=== PATIENT | male | born 1970 | race African-American/Black ===

== ENCOUNTER 2016-05-01 15:02 | Inpatient (IN) | payer OTHER ==
--- NOTE | 2016-05-01 15:28 | PDOC ---
History of Present Illness - General Chief Complaint: Respiratory Distress Stated Complaint: SOB Time Seen by Provider: 05/01/16 15:23 History Source: Patient - History of Present Illness Timing/Duration: reports: other Severity: reports: severe Associated Symptoms: reports: shortness of breath. denies: chest pain/soreness , fever/chills Past History - Past Medical History Allergies/Adverse Reactions: Allergies Allergy/AdvReac Type Severity Reaction Status Date / Time aspirin Allergy Verified 05/01/16 15:12 milk AdvReac Verified 05/01/16 15:12 mushroom Allergy Unknown Uncoded 05/01/16 15:12 TURKEY Allergy Uncoded 05/01/16 15:12 Home Medications: Ambulatory Orders Albuterol Sulfate Inhaler - [Ventolin HFA Inhaler -] 2 inh PO Q4H 05/10/15 Arformoterol Tartrate [Brovana -] 1 neb NEB BID 05/10/15 Ergocalciferol [Drisdol -] 50,000 unit PO WEEKLY 05/10/15 Furosemide [Lasix -] 60 mg PO BID 05/10/15 Methimazole 10 mg PO DAILY 05/10/15 Pantoprazole Sodium [Protonix -] 20 mg PO DAILY 05/10/15 Rivaroxaban [Xarelto -] 20 mg PO DAILY 05/10/15 Vitamin B Complex 1 each PO DAILY 05/10/15 Timolol 0.5% [Timoptic 0.5%] 1 drop OU DAILY drops 05/15/15 Atorvastatin Ca [Lipitor] 10 mg PO DAILY 09/06/15 Multivitamin [Poly-Vitamin] 1 each PO DAILY 09/06/15 Potassium Chloride [K-Dur -] 20 meq PO Q2D@1000 tablet.er 09/12/15 Prednisone [Deltasone -] 10 mg PO DAILY #30 tablet 11/08/15 Tramadol HCl [Ultram -] 50 mg PO BID #60 tablet MDD 100 mg 11/08/15 Anemia: Yes Asthma: Yes Cancer: No Cardiac Disorders: Yes (CHF) CVA: No COPD: Yes (O2 dependent 3-4LPM N/C) CHF: Yes Dementia: No Diabetes: No GI Disorders: Yes (UGI bleed) Disorders: No HTN: Yes Hypercholesterolemia: No Liver Disease: No Suicide Attempt (Hx): No Seizures: Yes Thyroid Disease: Yes - Surgical History Abdominal Surgery: Yes (corterize abdominal bleed) Appendectomy: No Cardiac Surgery: No Cholecystectomy: No Lung Surgery: No Neurologic Surgery: No Orthopedic Surgery: No - Immunization History Immunization Up to Date: Yes - Psycho/Social/Smoking Cessation Hx Anxiety: No Suicidal Ideation: No Smoking Status: No Smoking History: Former smoker Have you smoked in the past 12 months: Yes Number of Cigarettes Smoked Daily: 3 If you are a former smoker, when did you quit?: 2016 Information on smoking cessation initiated: No 'Breaking Loose' booklet given: 05/10/15 Hx Alcohol Use: No Drug/Substance Use Hx: No Substance Use Type: None Hx Substance Use Treatment: No Review of Systems - Review of Systems Constitutional: No: Chills, Fever Respiratory: Yes: Shortness of Breath. No: Cough Cardiac (ROS): No: Chest Pain, Lightheadedness, Palpitations, Syncope *Physical Exam - Vital Signs Last Vital Signs Temp Pulse Resp BP Pulse Ox 99 F 116 H 26 H 120/104 92 L 05/01/16 15:09 05/01/16 15:09 05/01/16 15:09 05/01/16 15:09 05/01/16 15:09 - Physical Exam General Appearance: Yes: Appropriately Dressed, Severe Distress Respiratory/Chest: positive: Lungs Clear, Normal Breath Sounds, Respiratory Distress Cardiovascular: positive: S1, S2, Tachycardia Gastrointestinal/Abdominal: positive: Soft. negative: Tender Extremity: positive: Pedal Edema, Swelling Integumentary: positive: Dry, Warm Neurologic: positive: Fully Oriented, Alert, Normal Mood/Affect ED Treatment Course - LABORATORY CBC & Chemistry Diagram: 05/01/16 15:50 05/01/16 15:50 - RADIOLOGY Radiology Studies Ordered: Category Date Time Status CHEST X-RAY PORTABLE* [RAD] Stat Radiology 05/01/16 15:26 Ordered Medical Decision Making - Medical Decision Making 05/01/16 15:28 45-year-old male, morbid obesity, emphysema, oxygen dependent at home, diastolic CHF, status post recent admission intubation for acute on chronic hypoxic and hypercapnic respiratory failure, presenting with worsening shortness of breath 4 days despite oxygen use. Reports no chest pain, worsening edema, cough, fever or chills at this time. See exam SOB Tachypneic, tachycardic and hypoxic to 92 on NC and unable to speak in full sentences Chest/lungs clear otherwise No sig edema Resp contacted for BIPAP trial -ekg -cxr -lasb including ABG -m/l ICU admit 05/01/16 17:37 Patient satting 100 on BiPAP in no apparent distress. Sinus tach on EKG with negative troponin. BMP greater than 700. Pt accepted to unit by Dr Arellano. A/w callback from Dr Robles (covering for Din), to admit 05/01/16 17:38 Care 05/01/16 18:06 Patient continues to be stable on BiPAP. At this point have not heard back from Dr. Robles after paging for over 2 hours. Case discussed with hospitalist and patient admitted to ICU 05/01/16 18:21 Dr. Robles called back and informed that patient has been listed to hospitalist service as we were unable to hear from him. As per M.D, pt should stay on hospitalist service. *DC/Admit/Observation/Transfer Diagnosis at time of Disposition: Hypercapnic respiratory failure Qualifiers: Chronicity: acute on chronic Qualified Code(s): J96.22 - Acute and chronic respiratory failure with hypercapnia - Discharge Dispostion Condition at time of disposition: Guarded Admit: Yes - Referrals Referrals: Lani Guzman MD [Primary Care Provider] -
[2016-05-01 16:34] LABS: BASOPHIL 0.4 % (0-2.0); EOSINOPHIL 0.1 % (0-4.5); MCH 28.3 pg (25.7-33.7); MCHC 31.3 g/dl (32.0-35.9); MEAN CELL VOLUME 90.5 fl (80-96); MEAN PLT VOLUME 7.7 fl (7.5-11.1); NEUTROPHILS 87.4 % (42.8-82.8); PLATELET COUNT 237 K/MM3 (134-434); RDW 15.8 % (11.9-15.9); WHITE BLOOD COUNT 12.1 K/mm3 (4.0-10.0)
[2016-05-01 16:35] LABS: ARTERIAL BLD GAS O2 SATURATION 92.4 % (90-98.9); ARTERIAL BLOOD GAS BASE EXCESS 9.3 meq/l (-2-2); ARTERIAL BLOOD GAS HCO3 37.5 meq/L (22-26); ARTERIAL BLOOD GAS pH 7.35 (7.35-7.45)
[2016-05-01 16:36] LABS: ALLENS TEST POSITIVE; ART PUNCT SITE RIGHT RADIAL; LPM/O2% 40%; METHEMOGLOBIN 1.4 % (0.4-1.5); PT. ON O2? YES; TYPE OF O2 BIPAP
[2016-05-01 16:37] LABS: MECH. VENT. BIPAP EPAP 5; VENT RATE 12; VT/PRESS IPAP12
[2016-05-01 16:53] LABS: INR 2.68 (0.82-1.09); PROTHROMBIN TIME (PATIENT) 30.1 SEC (9.98-11.88)
[2016-05-01 17:00] LABS: ALBUMIN 3.3 g/dl (3.4-5.0); ANION GAP 5 (8-16); CALCIUM 8.6 mg/dL (8.5-10.1); CO2 38 mmol/L (21-32); CREATININE 0.7 mg/dL (0.7-1.3); GLUCOSE,RANDOM 102 mg/dL (74-106); SGPT/ALT 13 U/L (12-78)
[2016-05-01 17:04] LABS: ALK PHOS 108 U/L (45-117); BILIRUBIN,TOTAL 0.7 mg/dL (0.2-1.0); TOT PROT 6.7 g/dl (6.4-8.2); TROPONIN I < 0.02 ng/ml (0.00-0.05)
[2016-05-01 17:05] LABS: SGOT/AST 16 U/L (15-37)
[2016-05-01 19:11] LABS: URINE APPEARANCE CLEAR; URINE BILIRUBIN NEGATIVE (NEGATIVE); URINE BLOOD NEGATIVE (NEGATIVE); URINE COLOR DKYELLOW; URINE GLUCOSE (UA) NEGATIVE (NEGATIVE); URINE KETONE NEGATIVE (NEGATIVE); URINE NITRITE NEGATIVE (NEGATIVE); URINE UROBILINOGEN 4.0 E.U/dl E.U./dl (0.2-1.0)
[2016-05-01 19:26] LABS: URINE LEUK ESTERASE TRACE (NEGATIVE); URINE PROTEIN 2+ (NEGATIVE)
--- NOTE | 2016-05-01 20:04 | HP ---
CHIEF COMPLAINT: SOB PCP: Thomas HISTORY OF PRESENT ILLNESS: This is a 45 year old male with a past medical history of morbid obesity, BONY, COPD-emphysema, diastolic CHF, anemia, UGI bleed, HTN, hyperthyroid, gluacoma, DVT, kidney stones and hiatal hernia presents with increasing SOB x 4 days. Denies fever, chills, increased cough. Reports that he just hasn't been able to breathe the same since his intubation in January. Denies chest pain, nausea, vomiting. Pt also states his CPAP is not working properly. ER course was notable for: (1) WBC 12.1 (2) BNP 714 (3) ABG pH 7.35, PCO2 70 Recent Travel: pt denies PAST MEDICAL HISTORY: morbid obesity BONY COPD-emphysema, oxygen dependent, intubated 01/2016 diastolic CHF anemia UGI bleed HTN hyperthyroid gluacoma kidney stones hiatal hernia DVT PAST SURGICAL HISTORY: tonsillectomy as a child Social History: Smoking: quit 1 year ago, previous 1/2 ppd x 25 years Alcohol: occ Drugs: marijuana, last used 1 y ago Family History: mother with DM, HTN, PPM father no known medical problems sibling with asthma Allergies aspirin Allergy (Verified 05/01/16 15:12) milk Adverse Reaction (Verified 05/01/16 15:12) mushroom Allergy (Unknown, Uncoded 05/01/16 15:12) TURKEY Allergy (Uncoded 05/01/16 15:12) HOME MEDICATIONS: 3 Medication Instructions Recorded Albuterol Sulfate Inhaler - 2 inh PO Q4H 05/10/15 [Ventolin HFA Inhaler -] Arformoterol Tartrate [Brovana -] 1 neb NEB BID 05/10/15 Ergocalciferol [Drisdol -] 50,000 unit PO WEEKLY 05/10/15 Furosemide [Lasix -] 60 mg PO BID 05/10/15 Methimazole 10 mg PO DAILY 05/10/15 Pantoprazole Sodium [Protonix -] 20 mg PO DAILY 05/10/15 Rivaroxaban [Xarelto -] 20 mg PO DAILY 05/10/15 Vitamin B Complex 1 each PO DAILY 05/10/15 Timolol 0.5% [Timoptic 0.5%] 1 drop OU DAILY drops 05/15/15 Atorvastatin Ca [Lipitor] 10 mg PO DAILY 09/06/15 Multivitamin [Poly-Vitamin] 1 each PO DAILY 09/06/15 Potassium Chloride [K-Dur -] 20 meq PO Q2D@1000 tablet.er 09/12/15 Prednisone [Deltasone -] 10 mg PO DAILY #30 tablet 11/08/15 Tramadol HCl [Ultram -] 50 mg PO BID #60 tablet MDD 100 mg 11/08/15 REVIEW OF SYSTEMS CONSTITUTIONAL: Absent: fever, chills, diaphoresis, generalized weakness, malaise, loss of appetite, weight change HEENT: Absent: rhinorrhea, nasal congestion, throat pain, throat swelling, difficulty swallowing, mouth swelling, ear pain, eye pain, visual changes CARDIOVASCULAR: Present: peripheral edema-pt states it is slightly worse than it has been recently Absent: chest pain, syncope, palpitations, irregular heart rate, lightheadedness RESPIRATORY: Present: shortness of breath Absent: cough, dyspnea with exertion, orthopnea, wheezing, stridor, hemoptysis GASTROINTESTINAL: Absent: abdominal pain, abdominal distension, nausea, vomiting, diarrhea, constipation, melena, hematochezia GENITOURINARY: Absent: dysuria, frequency, urgency, hesitancy, hematuria, flank pain, genital pain MUSCULOSKELETAL: Absent: myalgia, arthralgia, joint swelling, back pain, neck pain SKIN: Absent: rash, itching, pallor HEMATOLOGIC/IMMUNOLOGIC: Absent: easy bleeding, easy bruising, lymphadenopathy, frequent infections ENDOCRINE: Absent: unexplained weight gain, unexplained weight loss, heat intolerance, cold intolerance NEUROLOGIC: Absent: headache, focal weakness or paresthesias, dizziness, unsteady gait, seizure, mental status changes, bladder or bowel incontinence PSYCHIATRIC: Absent: anxiety, depression, suicidal or homicidal ideation, hallucinations. PHYSICAL EXAMINATION Vital Signs - 24 hr 3 05/01/16 05/01/16 05/01/16 15:09 16:06 16:31 Temperature 99 F 98.3 F Pulse Rate 116 H Pulse Rate [ 103 H Left Radial] Respiratory 26 H 20 Rate Blood Pressure 120/104 Blood Pressure 150/132 [Left Arm] O2 Sat by Pulse 92 L 94 L 96 Oximetry (%) 3 05/01/16 05/01/16 05/01/16 18:42 20:05 20:41 Temperature 98.2 F Pulse Rate 89 Pulse Rate [ 97 H Left Radial] Respiratory 16 15 Rate Blood Pressure 157/96 Blood Pressure 128/63 [Left Arm] O2 Sat by Pulse 96 93 L 95 Oximetry (%) GENERAL: Awake, alert, and fully oriented, in no acute distress. HEAD: Normal with no signs of trauma. EYES: Pupils equal, round and reactive to light, extraocular movements intact, sclera anicteric, conjunctiva clear. No lid lag. EARS, NOSE, THROAT: Ears normal, nares patent, oropharynx clear without exudates. Moist mucous membranes. NECK: Normal range of motion, supple without lymphadenopathy, JVD, or masses. LUNGS: Breath sounds equal, clear to auscultation bilaterally. No wheezes, and no crackles. No accessory muscle use. HEART: Regular rate and rhythm, normal S1 and S2 without murmur, rub or gallop. ABDOMEN: Soft, nontender, not distended, normoactive bowel sounds, no guarding, no rebound, no masses. No hepatomegaly or splenomegaly. MUSCULOSKELETAL: Normal range of motion at all joints. No bony deformities or tenderness. No CVA tenderness. UPPER EXTREMITIES: 2+ pulses, warm, well-perfused. No cyanosis. No clubbing. Cap refill <2 seconds. No peripheral edema. LOWER EXTREMITIES: 2+ pulses, warm, well-perfused. No calf tenderness. 1+ peripheral edema BLLE with chronic vascular changes, lichenification to posterior aspect, darkened skin, 2/3 up lower extremities NEUROLOGICAL: Cranial nerves II-XII intact. Normal speech. Normal gait. PSYCHIATRIC: Cooperative. Good eye contact. Appropriate mood and affect. SKIN: Warm, dry, normal turgor, no rashes or lesions noted. Laboratory Results - last 24 hr 3 05/01/16 05/01/16 05/01/16 15:30 15:30 15:50 WBC 12.1 H RBC 4.84 Hgb 13.7 Hct 43.8 MCV 90.5 MCHC 31.3 L RDW 15.8 D Plt Count 237 MPV 7.7 Neutrophils % 87.4 H Lymphocytes % 5.9 L D Monocytes % 6.2 Eosinophils % 0.1 D Basophils % 0.4 INR Puncture Site ABG pH ABG pCO2 at Pt Temp ABG pO2 at Pt Temp ABG HCO3 ABG O2 Sat (Measured) ABG O2 Content ABG Base Excess [place] Test Carboxyhemoglobin Methemoglobin O2 Delivery Device Oxygen Flow Rate Vent Mode Vent Rate Mechanical Rate Pressure Support Vent Sodium Potassium Chloride Carbon Dioxide Anion Gap BUN Creatinine Creat Clearance w eGFR Random Glucose Lactic Acid Calcium Total Bilirubin AST ALT Alkaline Phosphatase Creatine Kinase Troponin I B-Natriuretic Peptide Total Protein Albumin Urine Color Cancelled Dkyellow Urine Appearance Cancelled Clear Urine pH Cancelled 7.0 D Ur Specific [place] Cancelled 1.026 Urine Protein Cancelled 2+ H Urine Glucose (UA) Cancelled Negative Urine Clinitest Cancelled Urine Ketones Cancelled Negative Urine Blood Cancelled Negative Urine Nitrite Cancelled Negative Urine Bilirubin Cancelled Negative Urine Ictotest Cancelled Prot Sulfosalicylic Acd Cancelled Urine Urobilinogen Cancelled 4.0 e.u/dl Ur Leukocyte Esterase Cancelled Trace H Urine RBC 2 Urine WBC 2 Ur Epithelial Cells Rare Urine Bacteria Rare Urine Mucus Many 3 05/01/16 05/01/16 05/01/16 15:50 15:50 16:20 WBC RBC Hgb Hct MCV MCHC RDW Plt Count MPV Neutrophils % Lymphocytes % Monocytes % Eosinophils % Basophils % INR 2.68 H D Puncture Site ABG pH ABG pCO2 at Pt Temp ABG pO2 at Pt Temp ABG HCO3 ABG O2 Sat (Measured) ABG O2 Content ABG Base Excess [place] Test Carboxyhemoglobin Methemoglobin O2 Delivery Device Oxygen Flow Rate Vent Mode Vent Rate Mechanical Rate Pressure Support Vent Sodium 141 Potassium 4.2 Chloride 98 Carbon Dioxide 38 H Anion Gap 5 L BUN 8 D Creatinine 0.7 Creat Clearance w eGFR > 60 Random Glucose 102 Lactic Acid Calcium 8.6 Total Bilirubin 0.7 D AST 16 ALT 13 D Alkaline Phosphatase 108 D Creatine Kinase 53 Troponin I < 0.02 B-Natriuretic Peptide 714.45 H Total Protein 6.7 Albumin 3.3 L Urine Color Urine Appearance Urine pH Ur Specific [place] Urine Protein Urine Glucose (UA) Urine Clinitest Urine Ketones Urine Blood Urine Nitrite Urine Bilirubin Urine Ictotest Prot Sulfosalicylic Acd Urine Urobilinogen Ur Leukocyte Esterase Urine RBC Urine WBC Ur Epithelial Cells Urine Bacteria Urine Mucus 3 05/01/16 05/01/16 16:22 16:30 WBC RBC Hgb Hct MCV MCHC RDW Plt Count MPV Neutrophils % Lymphocytes % Monocytes % Eosinophils % Basophils % INR Puncture Site Right radial ABG pH 7.35 ABG pCO2 at Pt Temp 70.0 H* ABG pO2 at Pt Temp 68.0 L D ABG HCO3 37.5 H ABG O2 Sat (Measured) 92.4 ABG O2 Content 17.3 ABG Base Excess 9.3 H [place] Test Positive Carboxyhemoglobin 1.8 Methemoglobin 1.4 O2 Delivery Device Bipap Oxygen Flow Rate 40% Vent Mode S/t Vent Rate 12 Mechanical Rate Bipap epap 5 Pressure Support Vent Ipap12 Sodium Potassium Chloride Carbon Dioxide Anion Gap BUN Creatinine Creat Clearance w eGFR Random Glucose Lactic Acid 1.016 Calcium Total Bilirubin AST ALT Alkaline Phosphatase Creatine Kinase Troponin I B-Natriuretic Peptide Total Protein Albumin Urine Color Urine Appearance Urine pH Ur Specific [place] Urine Protein Urine Glucose (UA) Urine Clinitest Urine Ketones Urine Blood Urine Nitrite Urine Bilirubin Urine Ictotest Prot Sulfosalicylic Acd Urine Urobilinogen Ur Leukocyte Esterase Urine RBC Urine WBC Ur Epithelial Cells Urine Bacteria Urine Mucus CXR: CHF. Left pleural effusion and left basilar density ASSESSMENT/PLAN: 45yM with morbid obesity, BONY, COPD-emphysema, diastolic CHF, anemia, UGI bleed , HTN, hyperthyroid, gluacoma, DVT, kidney stones and hiatal hernia presents with SOB x 4 days. He is being admitted for acute on chronic respiratory failure. acute on chronic respiratory failure/COPD exacerbation - cont BiPAP, trial off in am - azithromycin as ordered - duonebs - prednisone 10mg (home dose), if wheezing, would start solumedrol dCHF/HTN - no s/s acute fluid overload, cont home lasix and potassium dosing Hyperlipidemia - cont home lipitor chronic pain, likely OA - cont home tramadol DVT PPX - on xarelto FEN - po fluids as tolerated - repeat BMP in am - low sodium diet as tolerated Dispo: Pt currently requires intensive monitoring in ICU. Visit type - Emergency Visit Emergency Visit: Yes ED Registration Date: 05/01/16 Care time: The patient presented to the Emergency Department on the above date and was hospitalized for further evaluation of their emergent condition. - New Patient This patient is new to me today: Yes Date on this admission: 05/01/16 - Critical Care Critical Care patient: Yes Total Critical Care Time (in minutes): 50 Critical Care Statement: The care of this patient involved high complexity decision making to prevent further life threatening deterioration of the patient 's condition and/or to evalute & treat vital organ system(s) failure or risk of failure.
[2016-05-01] MEDS ORDERED: ALBUTEROL SO4 2.5/IPRATROPIUM 0.5 INH SOL 3 ML VIAL.NEB. NEB PRN (20:19)
--- NOTE | 2016-05-01 20:26 | CONSULT ---
Consult Consult Specialty:: PULM/CCM Reason for Consultation:: Shortness of breath. Hypercapnea - History of Present Illness History of Present Illness: Mr Rivera is a 45-year-old male familiar to our service, last hospitalized in Jan 2016 with brief intubation, pmhx notable for morbid obesity (BMI ~60), emphysema on home o2 at 2-4L and nocturnal BiPap, diastolic CHF with preserved EF, presenting with worsening shortness of breath 4 days despite oxygen and Bipap use. He denies: LOC, chest pain, worsening edema, cough, fever or chills , medication non-compliance, or sick contact. There has been little change in his slight chronic non-productive cough. He relates his breathing has never been the same since Jan hospitalization and has worsened since d/c from rehab. He states he was referred for Bariatric surgery but is awaiting further follow up. Also relates he feels his Bipap machine isn't working properly and has a new one on order. In ED pt was awake, alert, dyspneic and unable to speak full sentence. He was afebrile and non-toxic appearing. He was placed on NIV almost immediately with some relief in symptoms. CXR show possible LLL infiltrate vs atelectasis. ABG taken after being placed on NIV showed chronic hypercapnea (7.35./70). BNP elevated at 700, Cr at baseline, wbc 12, UA clean. He remained moderately dyspneic and was transferred to ICU for further care. - History Source History Provided By: Patient Limitations to Obtaining History: No Limitations - Past Medical History Cardio/Vascular: Yes: CHF, Deep Vein Thrombosis, HTN, Hyperlipdemia, Other ( chronic peripheral edema) Pulmonary: Yes: Asthma, COPD, O2 Dependent, Pneumonia, Sleep Apnea, Other (BONY on bipap at night) Gastrointestinal: Yes: GI Bleed, Other (recurrent cellulitis of pannus. hernia per pt) Musculoskeletal: Yes: Chronic low back pain Endocrine: Yes: Hyperthyroidism, Other (morbid obesity thyroid goiter) Dermatology: Yes: Cellulitis, Other (chronic bilateral venostasis) Additional Medical History: BONY, morbid obesity, RUEXT DVT - Past Surgical History Past Surgical History: Yes: None - Alcohol/Substance Use Hx Alcohol Use: No History of Substance Use: reports: Cocaine - Smoking History Smoking history: Former smoker Have you smoked in the past 12 months: Yes Aproximately how many cigarettes per day: 3 If you are a former smoker, when did you quit?: 2016 (20+ pack year hx prior) - Social History Usual Living Arrangement: Alone ADL: Family Assistance (Mother moved in for some assistance) History of Recent Travel: No Home Medications - Allergies Allergies/Adverse Reactions: Allergies Allergy/AdvReac Type Severity Reaction Status Date / Time aspirin Allergy Verified 05/01/16 15:12 milk AdvReac Verified 05/01/16 15:12 mushroom Allergy Unknown Uncoded 05/01/16 15:12 TURKEY Allergy Uncoded 05/01/16 15:12 - Home Medications Home Medications: Ambulatory Orders Albuterol Sulfate Inhaler - [Ventolin HFA Inhaler -] 2 inh PO Q4H 05/10/15 Arformoterol Tartrate [Brovana -] 1 neb NEB BID 05/10/15 Ergocalciferol [Drisdol -] 50,000 unit PO WEEKLY 05/10/15 Furosemide [Lasix -] 60 mg PO BID 05/10/15 Methimazole 10 mg PO DAILY 05/10/15 Pantoprazole Sodium [Protonix -] 20 mg PO DAILY 05/10/15 Rivaroxaban [Xarelto -] 20 mg PO DAILY 05/10/15 Vitamin B Complex 1 each PO DAILY 05/10/15 Timolol 0.5% [Timoptic 0.5%] 1 drop OU DAILY drops 05/15/15 Atorvastatin Ca [Lipitor] 10 mg PO DAILY 09/06/15 Multivitamin [Poly-Vitamin] 1 each PO DAILY 09/06/15 Potassium Chloride [K-Dur -] 20 meq PO Q2D@1000 tablet.er 09/12/15 Prednisone [Deltasone -] 10 mg PO DAILY #30 tablet 11/08/15 Tramadol HCl [Ultram -] 50 mg PO BID #60 tablet MDD 100 mg 11/08/15 Family Disease History - Family Disease History Family Disease History: Heart Disease: Mother (PPM in her 60s (after fainting)) Review of Systems - Review of Systems Constitutional: reports: Weakness. denies: Chills, Diaphoresis, Night Sweats, Unintentional Wgt. Loss Eyes: reports: No Symptoms HENT: reports: No Symptoms Neck: reports: No Symptoms Cardiovascular: reports: Shortness of Breath. denies: Chest Pain Respiratory: reports: Exercise Intolerance, Orthopnea, SOB on Exertion Gastrointestinal: reports: No Symptoms Genitourinary: reports: No Symptoms Breasts: reports: No Symptoms Reported Musculoskeletal: reports: No Symptoms Integumentary: reports: No Symptoms Neurological: reports: No Symptoms Endocrine: reports: No Symptoms Hematology/Lymphatic: reports: No Symptoms Psychiatric: reports: No Symptoms Physical Exam Vital Signs: Vital Signs Temperature 98.3 F 05/01/16 16:31 Pulse Rate 97 H 05/01/16 18:42 Respiratory Rate 16 05/01/16 18:42 Blood Pressure 128/63 05/01/16 18:42 O2 Sat by Pulse Oximetry (%) 96 05/01/16 18:42 Constitutional: Yes: Well Nourished, Mild Distress Eyes: Yes: PERRL HENT: Yes: Atraumatic, Normocephalic Neck: Yes: Trachea Midline. No: Lymphadenopathy Cardiovascular: Yes: Regular Rate and Rhythm Respiratory: Yes: On BiPap, SOB. No: Accessory Muscle Use, Wheezes Gastrointestinal: Yes: Normal Bowel Sounds, Soft, Abdomen, Obese ...Rectal Exam: Yes: Deferred Renal/: Yes: WNL Breast(s): Yes: WNL Musculoskeletal: Yes: WNL Extremities: Yes: WNL, Other (venous stasis changes) Edema: Yes Edema: LUE: Trace, RUE: Trace, LLE: 1+, RLE: 1+ Integumentary: Yes: WNL ...Motor Strength: WNL Psychiatric: Yes: WNL Imaging - Results X-ray: Report Reviewed, Image Reviewed (vascular congestion, possible LLL infiltrate vs atelectasis) EKG: Pending (ordered) Problem List - Problems (1) DVT (deep venous thrombosis) Code(s): I82.409 - ACUTE EMBOLISM AND THOMBOS UNSP DEEP VN UNSP LOWER EXTREMITY (2) Hypercapnic respiratory failure Code(s): J96.92 - RESPIRATORY FAILURE, UNSPECIFIED WITH HYPERCAPNIA Qualifiers : Chronicity: acute on chronic Qualified Code(s): J96.22 - Acute and chronic respiratory failure with hypercapnia (3) Hypoxemia Code(s): R09.02 - HYPOXEMIA (4) Morbid obesity with BMI of 50.0-59.9, adult Code(s): Z68.43 - BODY MASS INDEX (BMI) 50-59.9 , ADULT Assessment/Plan PULM/CCM Pt seen and examined in the ICU A/ 45 y/o man with morbid obesity, COPD with chronic hypercapnea p/w progessive PIÑA and SOB c/w COPD exacerbation vs progression of disease from OHS. He has no sick prodrome, no productive cough or apparent sick contact. There may be a LLL infiltrate. P/ -NIVPPV overnight, break in am -Nebs -will increase Pred 10 to solumedrol if develops wheezing -azith for COPD exacerbation -check viral swab -gentle diuresis, appears pretty dry -cont oral anticoagulation -PPI -OOB as able Rajat Cook ACNP 0536 35 CCT
[2016-05-01] MEDS ORDERED: ACETAMINOPHEN 325 MG TABLET (FP) PO PRN (20:36)
[2016-05-01 20:38] VITALS: BMI 58.9
[2016-05-01 20:52] LABS: URINE BACTERIA RARE /hpf (NONE SEEN); URINE MUCUS MANY; URINE RBC 2 /hpf (0-3); URINE WBC 2 /hpf (3-5)
[2016-05-01] MEDS: AZITHROMYCIN IVPB 250 ML IVPB SCH (21:14)
[2016-05-01] MEDS: ATORVASTATIN CA 10 MG TABLET (FP) PO SCH ×2 (21:15→21:31)
[2016-05-01] MEDS: CHLORHEXIDINE GLUCONATE 4% CLEANSER FOR DECOLONIZATION TP SCH (21:15)
[2016-05-01] MEDS: MUPIROCIN 2% TOPICAL OINTMENT FOR DECOLONIZATION NS SCH (22:49)
[2016-05-02 00:08] LABS: TROPONIN I < 0.02 ng/ml (0.00-0.05)
[2016-05-02] MEDS ORDERED: HEPARIN NA (PORCINE) 5,000 UNITS/ML 1ML VIAL SQ SCH (02:00)
[2016-05-02] MEDS: FUROSEMIDE 40 MG TABLET (FP) PO SCH ×2 (06:09→13:07)
[2016-05-02 06:12] LABS: MCH 28.1 pg (25.7-33.7); MCHC 30.4 g/dl (32.0-35.9); MEAN CELL VOLUME 92.3 fl (80-96); MEAN PLT VOLUME 7.9 fl (7.5-11.1); PLATELET COUNT 254 K/MM3 (134-434); RDW 16.2 % (11.9-15.9); WHITE BLOOD COUNT 12.2 K/mm3 (4.0-10.0)
[2016-05-02 06:44] LABS: ALBUMIN 3.5 g/dl (3.4-5.0); ANION GAP 6 (8-16); CALCIUM 8.7 mg/dL (8.5-10.1); CO2 40 mmol/L (21-32); CREATININE 0.6 mg/dL (0.7-1.3); GLUCOSE,RANDOM 100 mg/dL (74-106); PHOSPHOROUS 5.1 mg/dL (2.5-4.9); SGPT/ALT 13 U/L (12-78)
[2016-05-02 06:46] LABS: ALK PHOS 113 U/L (45-117); BILIRUBIN,TOTAL 0.9 mg/dL (0.2-1.0); TOT PROT 7.3 g/dl (6.4-8.2)
[2016-05-02 07:03] LABS: SGOT/AST 18 U/L (15-37)
--- NOTE | 2016-05-02 07:57 | PN ---
Progress Note (short form) - Note Progress Note: PULM/CCM 24Hr: -did well overnight -no complaints -on NIV still this am but will stop for breakfast and reassess Active Medications Acetaminophen (Tylenol -) 650 mg PO Q4H PRN PRN Reason: FEVER OR PAIN Last Admin: 05/01/16 21:15 Dose: 650 mg Albuterol/Ipratropium (Duoneb -) 1 amp NEB Q6H PRN PRN Reason: SHORTNESS OF BREATH Atorvastatin Calcium (Lipitor -) 10 mg PO HS [facility] Last Admin: 05/01/16 21:31 Dose: Not Given Chlorhexidine Gluconate (Hibiclens For Decolonization -) 1 applic TP HS [facility] Last Admin: 05/01/16 21:15 Dose: 1 applic Furosemide (Lasix -) 60 mg PO BIDLASIX [facility] Last Admin: 05/02/16 06:09 Dose: 60 mg Azithromycin (Zithromax 500mg Ivpb (Pre-Docked)) 250 mls @ 250 mls/hr IVPB DAILY [facility] Last Admin: 05/01/16 21:14 Dose: 250 mls/hr Methimazole (Tapazole -) 10 mg PO DAILY [facility] Multivitamins (Total B With C -) 1 each PO DAILY [facility] Multivitamins/Minerals/Vitamin C (Tab-A-Vit -) 1 tab PO DAILY [facility] Mupirocin (Bactroban Ointment (For Decolonization) -) 1 applic NS BID [facility] Stop: 05/06/16 21:59 Last Admin: 05/01/16 22:49 Dose: Not Given Pantoprazole Sodium (Protonix -) 20 mg PO DAILY [facility] Potassium Chloride (K-Dur -) 20 meq PO Q2D@1000 [facility] Prednisone (Deltasone -) 10 mg PO DAILY [facility] Rivaroxaban (Xarelto -) 20 mg PO DAILY [facility] Timolol Maleate (Timoptic 0.5%) 1 drop OU DAILY [facility] Tramadol HCl (Ultram -) 50 mg PO DAILY [facility] Vital Signs Temp 97.6 F 05/02/16 06:00 Pulse 94 H 05/02/16 06:00 Resp 27 H 05/02/16 06:00 BP 157/115 05/02/16 06:00 Pulse Ox 96 05/02/16 05:00 Intake & Output 05/01/16 05/01/16 05/02/16 11:59 23:59 11:59 Intake Total 750 Output Total 500 Balance 250 Weight 165.743 kg 165.76 kg Intake: IVPB 250 Oral 500 Output: Urine 500 Void 500 Other: Voiding Method Urinal # Unmeasured Voids Void 1 Bowel Movement Yes Height 5 ft 6 in Body Mass Index (BMI) 58.9 Weight Measurement Method [facility] Weight Measurement Method Est/Stated by Patient DREA PEMBERTON 05/02/16 05:20 05/02/16 05:20 Problem List - Problems (1) DVT (deep venous thrombosis) Code(s): I82.409 - ACUTE EMBOLISM AND THOMBOS UNSP DEEP VN UNSP LOWER EXTREMITY (2) Hypercapnic respiratory failure Code(s): J96.92 - RESPIRATORY FAILURE, UNSPECIFIED WITH HYPERCAPNIA Qualifiers : Chronicity: acute on chronic Qualified Code(s): J96.22 - Acute and chronic respiratory failure with hypercapnia (3) Hypoxemia Code(s): R09.02 - HYPOXEMIA (4) Morbid obesity with BMI of 50.0-59.9, adult Code(s): Z68.43 - BODY MASS INDEX (BMI) 50-59.9 , ADULT
--- NOTE | 2016-05-02 08:57 | PN ---
Physical Exam: SUBJECTIVE: Patient seen and examined. The pt is still complaining of SOB and states that it is the same since he was on Bi-pap overnight. OBJECTIVE: Vital Signs Period Temp Pulse Resp BP Sys/[place]all Pulse Ox Last 24 Hr 97.6 F-98.7 F 89-108 15-34 128-178/63-115 93-96 GENERAL: The patient is awake, alert, and fully oriented, in moderate distress. HEAD: Normal with no signs of trauma. EYES: PERRL, extraocular movements intact, sclera anicteric, conjunctiva clear. No ptosis. ENT: Ears normal, nares patent, oropharynx clear without exudates, moist mucous membranes. NECK: Trachea midline, full range of motion, supple. LUNGS: Breath sounds equal, diminished breath sounds bilaterally, no wheezes, no crackles. HEART: Regular rate and rhythm, S1, S2 without murmur, rub or gallop. ABDOMEN: Obese, soft, nontender, nondistended, normoactive bowel sounds, no guarding, no rebound, no hepatosplenomegaly, no masses. EXTREMITIES: 2+ pulses, warm, well-perfused, 1+ edema B/L, venous stasis changes in lower extremities B/L. NEUROLOGICAL: Cranial nerves II through XII grossly intact. Slurred speech, gait not observed. PSYCH: Normal mood, normal affect. SKIN: Warm, dry, normal turgor, no rashes or lesions noted Laboratory Results - last 24 hr 05/01/16 05/02/16 05/02/16 22:30 05:20 05:20 WBC 12.2 H RBC 4.96 Hgb 13.9 Hct 45.8 MCV 92.3 MCHC 30.4 L RDW 16.2 H Plt Count 254 MPV 7.9 Neutrophils % Y Lymphocytes % Y Sodium 141 Potassium 4.0 Chloride 95 L Carbon Dioxide 40 H Anion Gap 6 L BUN 6 L D Creatinine 0.6 L Creat Clearance w eGFR > 60 Random Glucose 100 Calcium 8.7 Phosphorus 5.1 H Magnesium 2.0 Total Bilirubin 0.9 D AST 18 ALT 13 Alkaline Phosphatase 113 Creatine Kinase 33 L Troponin I < 0.02 Total Protein 7.3 Albumin 3.5 Active Medications Generic Name Dose Route Start Last Admin Trade Name Freq PRN Reason Stop Dose Admin Acetaminophen 650 mg 05/01/16 20:36 05/01/16 21:15 Tylenol - PO 650 mg Q4H PRN Administration FEVER OR PAIN Albuterol/Ipratropium 1 amp 05/01/16 20:19 Duoneb - NEB Q6H PRN SHORTNESS OF BREATH Atorvastatin Calcium 10 mg 05/01/16 22:00 05/01/16 21:31 Lipitor - PO Not Given HS PALLAVI Chlorhexidine Gluconate 1 applic 05/01/16 22:00 05/01/16 21:15 Hibiclens For Decolonization - TP 1 applic HS [facility] Administration Furosemide 60 mg 05/02/16 06:00 05/02/16 06:09 Lasix - PO 60 mg BIDLASIX [facility]ALL[facility] Administration Azithromycin 250 mls @ 250 mls/hr 05/01/16 20:30 05/01/16 21:14 Zithromax 500mg Ivpb (Pre-Docked) IVPB 250 mls/hr DAILY [facility] Administration Methimazole 10 mg 05/02/16 10:00 Tapazole - PO DAILY [facility] Multivitamins 1 each 05/02/16 10:00 Total B With C - PO DAILY [facility] Multivitamins/Minerals/Vitamin C 1 tab 05/02/16 10:00 Tab-A-Vit - PO DAILY [facility] Mupirocin 1 applic 05/01/16 22:00 05/01/16 22:49 Bactroban Ointment (For Decolonization) - NS 05/06/16 21:59 Not Given BID [facility] Pantoprazole Sodium 20 mg 05/02/16 10:00 Protonix - PO DAILY [facility] Potassium Chloride 20 meq 05/03/16 10:00 K-Dur - PO Q2D@1000 [facility] Prednisone 10 mg 05/02/16 10:00 Deltasone - PO DAILY [facility] Rivaroxaban 20 mg 05/02/16 10:00 Xarelto - PO DAILY [facility] Timolol Maleate 1 drop 05/02/16 10:00 Timoptic 0.5% OU DAILY [facility] Tramadol HCl 50 mg 05/02/16 10:00 Ultram - PO DAILY [facility] ASSESSMENT/PLAN: 45yM with morbid obesity, BONY, COPD-emphysema, diastolic CHF, anemia, UGI bleed , HTN, hyperthyroid, gluacoma, DVT, kidney stones and hiatal hernia, recent hospitalization for CIOPD exacerbation, intubated presents with SOB x 4 days. He is being admitted for acute on chronic respiratory failure due to COPD exacerbation. He is admitted to ICU. acute on chronic respiratory failure due to COPD exacerbation - COPD exac. probably due to up[per respiratory infection, Influenza antigen pending - Pneumonia r/o at this moment- CXR similar to the previous one, leukocytosis probably due to chronic steroid use - off Bi-Pap this AM, will restart Bi-Pap after repeated ABG - azithromycin 250 mg Daily day 2 for COPD exacerbation - duonebs standing and PRN - prednisone 10mg (home dose) increased to 40 mg DAILY Hypertension: -started Norvasc 5 mg Daily, systolic BP in 140/170, probably due acute respiratory failure -the pt was not on any hypertensive meds in the past diastolic CHF: - cont home Lasix 60 mg BID -no acute exacerbation now -last ECHO in 2015 was nl, nl EF Hyperlipidemia - cont home Lipitor chronic pain - cont home Tramadol PRN only DVT PPX: - continue Xarelto F/E/N; No/No changes/Low sodium diet Disposition: ICU. Problem List - Problems (1) Hypercapnic respiratory failure Code(s): J96.92 - RESPIRATORY FAILURE, UNSPECIFIED WITH HYPERCAPNIA Qualifiers : Chronicity: acute on chronic Qualified Code(s): J96.22 - Acute and chronic respiratory failure with hypercapnia (2) Hypoxemia Code(s): R09.02 - HYPOXEMIA (3) Morbid obesity Code(s): E66.01 - MORBID (SEVERE) OBESITY DUE TO EXCESS CALORIES Qualifiers: Obesity type: due to excess calories Qualified Code(s): E66.01 - Morbid (severe) obesity due to excess calories (4) Obstructive apnea Code(s): G47.33 - OBSTRUCTIVE SLEEP APNEA (ADULT) (PEDIATRIC) Visit type - Emergency Visit Emergency Visit: Yes ED Registration Date: 05/01/16 Care time: The patient presented to the Emergency Department on the above date and was hospitalized for further evaluation of their emergent condition. - New Patient This patient is new to me today: Yes Date on this admission: 05/02/16 - Critical Care Critical Care patient: Yes Total Critical Care Time (in minutes): 40 Critical Care Statement: The care of this patient involved high complexity decision making to prevent further life threatening deterioration of the patient 's condition and/or to evalute & treat vital organ system(s) failure or risk of failure.
[2016-05-02] MEDS ORDERED: PT OWN MED DRAWER 7, Y5N ONE ×2 (09:15→16:42)
[2016-05-02 09:16] LABS: METAMYELOCYTE 1 % (0-2)
[2016-05-02 09:17] LABS: PLATELET COMMENT2 NO CLOTTING DETECTED; PLATELET ESTIMATE ADEQUATE (NORMAL)
[2016-05-02] MEDS: AZITHROMYCIN IVPB 250 ML IVPB SCH (09:19)
[2016-05-02] MEDS: MULTIVITAMINS (DAILY MVI) TABLET (FP) PO SCH (09:20)
[2016-05-02] MEDS: PANTOPRAZOLE 20 MG TABLET (FP) PO SCH (09:20)
[2016-05-02] MEDS: MUPIROCIN 2% TOPICAL OINTMENT FOR DECOLONIZATION NS SCH ×2 (09:20→21:23)
[2016-05-02] MEDS: RIVAROXABAN 20 MG TABLET PO SCH (09:20)
[2016-05-02] MEDS: VITAMIN B COMPLEX W/C COMBO TABLET (FP) PO SCH (09:20)
[2016-05-02] MEDS: METHIMAZOLE 10 MG TABLET (FP) PO SCH (09:21)
[2016-05-02] MEDS ORDERED: traMADol HCL 50 MG TABLET PO PRN (09:55)
--- NOTE | 2016-05-02 09:59 | PN ---
Teaching Attending Note Name of Resident: Brooklynn Roy ATTENDING PHYSICIAN STATEMENT I saw and evaluated the patient. I reviewed the resident's note and discussed the case with the resident. I agree with the resident's findings and plan as documented. SUBJECTIVE: no fever or chills, feels SOB, feels tired, tired , cogh withno sputum production . He thinks his BIPAP machine is nto working appropriately. possible URI as outpt . OBJECTIVE: NAD, lethargic. responsive and answers questions HEENT: no facial asymmetry. unable to assess for JVD due to short obese neck CV: RRR, no MRG Lungs :decreased air entry in both lungs R > L .. no wheezes Ext : thick skin on Legs , pitting edema ASSESSMENT AND PLAN: 45 y/o man with h/o morbid obesity, BONY, COPD-emphysema, diastolic CHF, anemia , UGI bleed, HTN, hyperthyroid, gluacoma, DVT, kidney stones and hiatal hernia , recent intubation due to acute resp failure , who presented with SOb and was found to have acute on chronic resp failure due to copd exa. 1- ACute on chronic resp failure due to Acute COPD exacerbation. clinically he does not appear to have PNA . his cxray with poor inspiratory effort and shows no new infiltrate . Leukocytosis is mild and probably due to steroid use . BIPAP has not been working at home and he might have had a URI as outpt which triggered the event - check ABG as he is off BIPAP now - use BIPAP for now - increase steroids to 40 mg BID - use Duo-NEbs PRN and standing - Add advair BID - azithro for antiinflammatory effect x 3 days 2- h/o Diastolic CHF . chronic , does not appear in acute exacerbation. last echo in 2015 showed nL EF and LV size - cont home dose lasix - no need fro repeat echo 3- H/o DVT : cont xarelto 4- HTN: BP has been 150s-170s. which could be due to resp distress. He has h/o essential HTN as per previous card notes. - add low dose norvasc. - monitor while on steroids 5- ICU level of care
[2016-05-02] MEDS ORDERED: PATIENT'S OWN MEDICATION (NON-FORMULARY) (Multivitamin [Poly-Vitamin] 1 EACH) PO SCH (10:00)
[2016-05-02] MEDS ORDERED: traMADol HCL 50 MG TABLET PO SCH (10:00)
[2016-05-02] MEDS ORDERED: predniSONE 10 MG TABLET (UD) PO SCH (10:00)
[2016-05-02] MEDS ORDERED: PATIENT'S OWN MEDICATION (NON-FORMULARY) (Vitamin B Complex [Vitamin B Complex] 1 EACH) PO SCH (10:00)
[2016-05-02] MEDS ORDERED: predniSONE 20 MG TABLET (UD) PO SCH ×2 (10:15→22:00)
--- NOTE | 2016-05-02 10:49 | CONSULT ---
Consult Consult Specialty:: cardiology Reason for Consultation:: shortness of breath; hx diastolic CHF, OSAS - History of Present Illness Chief Complaint: Pt finished breakfast; feels "confused"; lethargic. History of Present Illness: This is a 45 year old male with a past medical history of morbid obesity, BONY, COPD-emphysema, diastolic CHF, anemia, UGI bleed, HTN, hyperthyroid, gluacoma, DVT, kidney stones and hiatal hernia presents with increasing SOB x 4 days. Denies fever, chills, increased cough. Reports that he just hasn't been able to breathe the same since his intubation in January. Denies chest pain, nausea, vomiting. Pt also states his CPAP is not working properly. ER course was notable for: (1) WBC 12.1 (2) BNP 714 - History Source History Provided By: Patient, Medical Record Limitations to Obtaining History: Poor Historian - Past Medical History Cardio/Vascular: Yes: CHF, Deep Vein Thrombosis, HTN, Hyperlipdemia, Other ( chronic peripheral edema) Pulmonary: Yes: Asthma, COPD, O2 Dependent, Pneumonia, Sleep Apnea, Other (BONY on bipap at night) Gastrointestinal: Yes: GI Bleed, Other (recurrent cellulitis of pannus. hernia per pt) Psych: Yes: Addictions Musculoskeletal: Yes: Chronic low back pain, Other (bilateral LE chronic edema and weakness) Endocrine: Yes: Hyperthyroidism, Other (morbid obesity thyroid goiter) Dermatology: Yes: Cellulitis, Other (chronic bilateral venostasis) Additional Medical History: BONY, morbid obesity, RUEXT DVT - Past Surgical History Past Surgical History: Yes: None - Alcohol/Substance Use Hx Alcohol Use: No History of Substance Use: reports: Cocaine - Smoking History Smoking history: Former smoker Have you smoked in the past 12 months: Yes Aproximately how many cigarettes per day: 3 If you are a former smoker, when did you quit?: 2016 (20+ pack year hx prior) - Social History Usual Living Arrangement: Alone ADL: Family Assistance (Mother moved in for some assistance) History of Recent Travel: No Home Medications - Allergies Allergies/Adverse Reactions: Allergies Allergy/AdvReac Type Severity Reaction Status Date / Time aspirin Allergy Verified 05/01/16 15:12 milk AdvReac Verified 05/01/16 15:12 mushroom Allergy Unknown Uncoded 05/01/16 15:12 TURKEY Allergy Uncoded 05/01/16 15:12 - Home Medications Home Medications: Ambulatory Orders Albuterol Sulfate Inhaler - [Ventolin HFA Inhaler -] 2 inh PO Q4H 05/10/15 Arformoterol Tartrate [Brovana -] 1 neb NEB BID 05/10/15 Ergocalciferol [Drisdol -] 50,000 unit PO WEEKLY 05/10/15 Furosemide [Lasix -] 60 mg PO BID 05/10/15 Methimazole 10 mg PO DAILY 05/10/15 Pantoprazole Sodium [Protonix -] 20 mg PO DAILY 05/10/15 Rivaroxaban [Xarelto -] 20 mg PO DAILY 05/10/15 Vitamin B Complex 1 each PO DAILY 05/10/15 Timolol 0.5% [Timoptic 0.5%] 1 drop OU DAILY drops 05/15/15 Atorvastatin Ca [Lipitor] 10 mg PO DAILY 09/06/15 Multivitamin [Poly-Vitamin] 1 each PO DAILY 09/06/15 Potassium Chloride [K-Dur -] 20 meq PO Q2D@1000 tablet.er 09/12/15 Prednisone [Deltasone -] 10 mg PO DAILY #30 tablet 11/08/15 Tramadol HCl [Ultram -] 50 mg PO BID #60 tablet MDD 100 mg 11/08/15 Family Disease History - Family Disease History Family Disease History: Heart Disease: Mother (PPM in her 60s (after fainting)) Review of Systems - Review of Systems Constitutional: reports: Lethargy Eyes: reports: No Symptoms HENT: reports: Nasal Congestion Neck: reports: Decreased ROM Cardiovascular: reports: Shortness of Breath Respiratory: reports: Exercise Intolerance, Snoring, SOB Gastrointestinal: reports: Bloating Genitourinary: reports: No Symptoms Breasts: reports: No Symptoms Reported Musculoskeletal: reports: Decreased ROM, Joint Swelling, Muscle Weakness Integumentary: reports: Other (chronic hyperpigmentation and coarse skin of LEs to mid-shins) Psychiatric: reports: Altered Sleep Pattern, Anxiety, Depression - Risk Factors Known Risk Factors: Yes: Age, Gender, Hypercholesterolemia, Hypertension, Physical Inactivity, Race, Other (DVT; COPD; diatolic CHF; morbid obesity; OSAS) Vital Signs: Vital Signs Temperature 98 F 05/02/16 10:00 Pulse Rate 100 H 05/02/16 10:00 Respiratory Rate 24 05/02/16 10:00 Blood Pressure 159/96 05/02/16 10:00 O2 Sat by Pulse Oximetry (%) 92 L 05/02/16 10:00 Constitutional: Yes: Anxious, Obese Eyes: Yes: WNL HENT: Yes: WNL Neck: Yes: WNL Respiratory: Yes: Diminished, On BiPap, Poor Air Entry, SOB Gastrointestinal: Yes: Abdomen, Obese Renal/: No: Anuria Cardiovascular: Yes: Tachycardia JVD: No Carotid Bruit: No PMI: Displaced Heart Sounds: Yes: S1, S2, S4 Murmur: Yes: Systolic Murmur, Grade 1 Musculoskeletal: Yes: Joint Swelling, Muscle Weakness Extremities: Yes: Cool Edema: Yes Edema: LLE: 1+, RLE: 1+ Peripheral Pulses WNL: No Peripheral Pulses: 1+ Left Doralis Pedis, 1+ Right Dorsalis Pedis Integumentary: Yes: Venous Stasis Changes, Other (chronic hyperpigmentation of bilater LEs to mjid-shins) Neurological: Yes: Lethargy Psychiatric: Yes: Other (addictive personality; depression) - Other Data Labs, Other Data: CBC, BMP 05/02/16 05:20 05/02/16 05:20 INR, PTT INR 2.68 (0.82-1.09) H D 05/01/16 16:20 Troponin, BNP 05/01/16 22:30 Troponin I < 0.02 Troponin, BNP 05/01/16 22:30 Troponin I < 0.02 Abnormal Lab Results 05/01/16 05/01/16 05/01/16 15:30 15:50 15:50 WBC 12.1 H MCHC 31.3 L RDW Neutrophils % 87.4 H Lymphocytes % 5.9 L D INR ABG pH ABG pCO2 at Pt Temp ABG pO2 at Pt Temp ABG HCO3 ABG O2 Sat (Measured) ABG Base Excess Chloride Carbon Dioxide 38 H Anion Gap 5 L BUN Creatinine Phosphorus Creatine Kinase B-Natriuretic Peptide Albumin 3.3 L Urine Protein 2+ H Ur Leukocyte Esterase Trace H 05/01/16 05/01/16 05/01/16 15:50 16:20 16:30 WBC MCHC RDW Neutrophils % Lymphocytes % INR 2.68 H D ABG pH ABG pCO2 at Pt Temp 70.0 H* ABG pO2 at Pt Temp 68.0 L D ABG HCO3 37.5 H ABG O2 Sat (Measured) ABG Base Excess 9.3 H Chloride Carbon Dioxide Anion Gap BUN Creatinine Phosphorus Creatine Kinase B-Natriuretic Peptide 714.45 H Albumin Urine Protein Ur Leukocyte Esterase 05/01/16 05/02/16 05/02/16 22:30 05:20 05:20 WBC 12.2 H MCHC 30.4 L RDW 16.2 H Neutrophils % Lymphocytes % INR ABG pH ABG pCO2 at Pt Temp ABG pO2 at Pt Temp ABG HCO3 ABG O2 Sat (Measured) ABG Base Excess Chloride 95 L Carbon Dioxide 40 H Anion Gap 6 L BUN 6 L D Creatinine 0.6 L Phosphorus 5.1 H Creatine Kinase 33 L B-Natriuretic Peptide Albumin Urine Protein Ur Leukocyte Esterase 05/02/16 10:50 WBC MCHC RDW Neutrophils % Lymphocytes % INR ABG pH 7.23 L* ABG pCO2 at Pt Temp 104.0 H* D ABG pO2 at Pt Temp 56.6 L ABG HCO3 42.0 H* ABG O2 Sat (Measured) 84.2 L ABG Base Excess 9.8 H Chloride Carbon Dioxide Anion Gap BUN Creatinine Phosphorus Creatine Kinase B-Natriuretic Peptide Albumin Urine Protein Ur Leukocyte Esterase Abnormal Lab Results 05/01/16 05/02/16 05/02/16 22:30 05:20 05:20 WBC 12.2 H MCHC 30.4 L RDW 16.2 H ABG pH ABG pCO2 at Pt Temp ABG pO2 at Pt Temp ABG HCO3 ABG O2 Sat (Measured) ABG Base Excess Chloride 95 L Carbon Dioxide 40 H Anion Gap 6 L BUN 6 L D Creatinine 0.6 L Phosphorus 5.1 H Creatine Kinase 33 L 05/02/16 05/02/16 05/02/16 10:50 13:55 15:45 WBC MCHC RDW ABG pH 7.23 L* 7.19 L* ABG pCO2 at Pt Temp 104.0 H* D 117.0 H* 63.4 H* D ABG pO2 at Pt Temp 56.6 L 70.4 L D 58.4 L ABG HCO3 42.0 H* 42.6 H* 39.3 H ABG O2 Sat (Measured) 84.2 L ABG Base Excess 9.8 H 8.7 H 12.2 H Chloride Carbon Dioxide Anion Gap BUN Creatinine Phosphorus Creatine Kinase Ejection Fraction %: LVEF > or = 40 % Imaging - Results Chest X-ray: Image Reviewed EKG: Image Reviewed (sinus tachycardia; prolonged QT) Other: Image Reviewed (telemetry: sinus tachycardia) Problem List - Problems (1) Edema Code(s): R60.9 - EDEMA, UNSPECIFIED (2) Acute on chronic diastolic CHF (congestive heart failure) Assessment/Plan: On amlodipine and furosemide. TNI < 0.02 x 2. F/u BUN/Cr, elecrolytes, daily weight, Is and Os. F/u ABG (lethargic; Bipap restarted). Code(s): I50.33 - ACUTE ON CHRONIC DIASTOLIC (CONGESTIVE) HEART FAILURE (3) COPD exacerbation Code(s): J44.1 - CHRONIC OBSTRUCTIVE PULMONARY DISEASE W (ACUTE) EXACERBATION (4) Depression Code(s): F32.9 - MAJOR DEPRESSIVE DISORDER, SINGLE EPISODE, UNSPECIFIED (5) Diastolic CHF Code(s): I50.30 - UNSPECIFIED DIASTOLIC (CONGESTIVE) HEART FAILURE Qualifiers : Congestive heart failure chronicity: acute on chronic Qualified Code(s) : I50.33 - Acute on chronic diastolic (congestive) heart failure (6) Dvt femoral (deep venous thrombosis) Assessment/Plan: Continue rivaroxaban. Code(s): I82.419 - ACUTE EMBOLISM AND THROMBOSIS OF UNSPECIFIED FEMORAL VEIN (7) HTN (hypertension) Assessment/Plan: Restart antihypertensives.(presently on furosemide and amlodipine). Code(s): I10 - ESSENTIAL (PRIMARY) HYPERTENSION (8) Moderate to severe pulmonary hypertension Code(s): I27.2 - OTHER SECONDARY PULMONARY HYPERTENSION (9) Hypercapnic respiratory failure Assessment/Plan: on BiPAP, would remains lethargic. F/u ABG; may require intubation. Code(s): J96.92 - RESPIRATORY FAILURE, UNSPECIFIED WITH HYPERCAPNIA Qualifiers : Chronicity: acute on chronic Qualified Code(s): J96.22 - Acute and chronic respiratory failure with hypercapnia (10) Morbid obesity Code(s): E66.01 - MORBID (SEVERE) OBESITY DUE TO EXCESS CALORIES Qualifiers: Obesity type: due to excess calories Qualified Code(s): E66.01 - Morbid (severe) obesity due to excess calories (11) Obstructive apnea Code(s): G47.33 - OBSTRUCTIVE SLEEP APNEA (ADULT) (PEDIATRIC)
[2016-05-02 10:55] LABS: ARTERIAL BLD GAS O2 SATURATION 84.2 % (90-98.9); ARTERIAL BLOOD GAS BASE EXCESS 9.8 meq/l (-2-2)
[2016-05-02 10:58] LABS: ARTERIAL BLOOD GAS pH 7.23 (7.35-7.45)
[2016-05-02 10:59] LABS: ALLENS TEST POSITIVE; ART PUNCT SITE RIGHT RADIAL; ARTERIAL BLOOD GAS PO2 56.6 mmHg (80-100); LPM/O2% 3LPM; PT. ON O2? YES; TYPE OF O2 NASAL
[2016-05-02] MEDS: TIMOLOL 0.5% OPHTHALMIC SOL 5 ML BOTTLE OU SCH (11:04)
[2016-05-02] MEDS: amLODIPine BESYLATE 5 MG TABLET (FP) PO SCH (11:32)
[2016-05-02] MEDS: FLUTICASONE/SALMETEROL 100 MCG/50 MCG DISKUS IH SCH ×3 (12:20→21:22)
[2016-05-02] MEDS: ALBUTEROL SO4 2.5/IPRATROPIUM 0.5 INH SOL 3 ML VIAL.NEB. NEB SCH ×2 (13:18→17:09)
[2016-05-02] MEDS ORDERED: PROPOFOL 100 ML ONE (13:55)
[2016-05-02] MEDS ORDERED: ROCURONIUM BROMIDE 50 MG/5 ML VIAL IVPUSH ONE (13:55)
[2016-05-02 14:00] LABS: ARTERIAL BLOOD GAS BASE EXCESS 8.7 meq/l (-2-2); ARTERIAL BLOOD GAS HCO3 42.6 meq/L (22-26); ARTERIAL BLOOD GAS PO2 70.4 mmHg (80-100)
[2016-05-02 14:01] LABS: ARTERIAL BLOOD GAS pH 7.19 (7.35-7.45); PT. ON O2? YES
[2016-05-02 14:02] LABS: LPM/O2% 40%; MECH. VENT. BIPAP; TYPE OF O2 OT; VENT RATE 12
[2016-05-02] MEDS: PROPOFOL 100 ML IVPB SCH ×2 (14:30→18:08)
--- NOTE | 2016-05-02 14:33 | PROC ---
Procedure Note Procedure: Intubation Note: Pt somulent on 15/5 Bipap with progressive hypercapnea 7.18/117. RSI performed in usual fashion, 100 fent, 100 propofol given. Muscle relaxation acheived without paralysis 7.5 ETT placed on 2nd DL using Mac IV blade, grade II view, 2/2 large boggy epiglottis + ETCO2 + BS Bilaterally Cxr ordered. Sedation ordered
[2016-05-02] MEDS ORDERED: PIPERACILLIN/TAZOB 4.5 GM 100 ML IVPB ONE (15:15)
[2016-05-02 15:47] LABS: ARTERIAL BLD GAS O2 SATURATION 92.2 % (90-98.9); ARTERIAL BLOOD GAS BASE EXCESS 12.2 meq/l (-2-2); ARTERIAL BLOOD GAS HCO3 39.3 meq/L (22-26); ARTERIAL BLOOD GAS pH 7.41 (7.35-7.45)
[2016-05-02 15:51] LABS: ALLENS TEST POSITIVE; ART PUNCT SITE RIGHT RADIAL; ARTERIAL BLOOD GAS PO2 58.4 mmHg (80-100); LPM/O2% 50%; MECH. VENT. ESPRIT; PT. ON O2? YES; TYPE OF O2 OT; VENT RATE 16; VT/PRESS 500
[2016-05-02] MEDS ORDERED: VANCOMYCIN 1,750 MG in DEXTROSE 5%-WATER - 500 ML IVPB ONE (16:00)
--- NOTE | 2016-05-02 16:18 | EKG ---
Test Reason : Blood Pressure : / mmHG Vent. Rate : 099 BPM Atrial Rate : 099 BPM P-R Int : 166 ms QRS Dur : 084 ms QT Int : 380 ms P-R-T Axes : 051 064 044 degrees QTc Int : 487 ms NORMAL SINUS RHYTHM PROLONGED QT ABNORMAL ECG WHEN COMPARED WITH ECG OF 01-MAY-2016 15:49, NO SIGNIFICANT CHANGE WAS FOUND Confirmed by MICHELL COTE MD ([id number]) on 05/02/2016 4:18:14 PM Referred By: TERI SUTTON Confirmed By:MICHELL COTE MD
--- NOTE | 2016-05-02 16:23 | EKG ---
Test Reason : Blood Pressure : / mmHG Vent. Rate : 109 BPM Atrial Rate : 109 BPM P-R Int : 160 ms QRS Dur : 082 ms QT Int : 358 ms P-R-T Axes : 054 089 034 degrees QTc Int : 482 ms SINUS TACHYCARDIA POSSIBLE ANTERIOR INFARCT , AGE UNDETERMINED ABNORMAL ECG WHEN COMPARED WITH ECG OF 19-FEB-2016 10:49, QT HAS LENGTHENED Confirmed by MICHELL COTE MD ([id number]) on 05/02/2016 4:22:54 PM Referred By: Confirmed By:MICHELL COTE MD
[2016-05-02] MEDS ORDERED: PROPOFOL 1000 MG/100 ML VIAL IVPUSH ONE ×2 (17:00→17:30)
[2016-05-02] MEDS ORDERED: VANCOMYCIN 1 GRAM (PRE-DOCKED) 250 ML IVPB SCH (17:30)
[2016-05-02] MEDS ORDERED: HYDROCORTISONE SOD SUCCINATE 2 ML ONE (20:54)
[2016-05-02] MEDS: FENTANYL INJECTION 500 MCG in DEXTROSE 5%-WATER - 90 ML IJ SCH (21:22)
[2016-05-02] MEDS: ATORVASTATIN CA 10 MG TABLET (FP) PO SCH (21:23)
[2016-05-02] MEDS: CHLORHEXIDINE GLUCONATE 4% CLEANSER FOR DECOLONIZATION TP SCH (21:23)
[2016-05-02] MEDS: HYDROCORTISONE SOD SUCCINATE 100 MG/2 ML VIAL IVPB SCH (21:23)
[2016-05-03] MEDS: ALBUTEROL SO4 2.5/IPRATROPIUM 0.5 INH SOL 3 ML VIAL.NEB. NEB SCH ×5 (00:14→23:05)
[2016-05-03] MEDS: PIPERACILLIN/TAZOB 4.5 GM 100 ML IVPB SCH ×4 (01:57→20:14)
[2016-05-03] MEDS ORDERED: VANCOMYCIN 1 GRAM (PRE-DOCKED) 250 ML IVPB SCH (06:00)
[2016-05-03] MEDS: FUROSEMIDE 40 MG TABLET (FP) PO SCH ×3 (06:16→22:09)
[2016-05-03 06:26] LABS: MCHC 32.1 g/dl (32.0-35.9); MEAN CELL VOLUME 90.3 fl (80-96); MEAN PLT VOLUME 7.8 fl (7.5-11.1); PLATELET COUNT 215 K/MM3 (134-434); WHITE BLOOD COUNT 10.2 K/mm3 (4.0-10.0)
[2016-05-03 06:46] LABS: CALCIUM 8.1 mg/dL (8.5-10.1); CREATININE 0.8 mg/dL (0.7-1.3)
[2016-05-03 07:49] LABS: ARTERIAL BLD GAS O2 SATURATION 92.8 % (90-98.9); ARTERIAL BLOOD GAS BASE EXCESS 16.4 meq/l (-2-2); ARTERIAL BLOOD GAS HCO3 40.3 meq/L (22-26); ARTERIAL BLOOD GAS PO2 53.8 mmHg (80-100)
[2016-05-03 07:50] LABS: ALLENS TEST POSITIVE
[2016-05-03 07:51] LABS: ART PUNCT SITE RIGHT RADIAL; LPM/O2% 35%; MECH. VENT. YES; PT. ON O2? YES; TYPE OF O2 MECH VENT; VENT RATE 17; VT/PRESS 475
[2016-05-03 07:52] LABS: ARTERIAL BLOOD GAS pH 7.61 (7.35-7.45)
--- NOTE | 2016-05-03 07:53 | PN ---
Progress Note (short form) - Note Progress Note: PULM/CCM 24Hr: -intubated for progressive hypercapnea despite increasing NIV support -BP stable post intubation, but worseding CXR -started on HCAP coverage (Vanc/zosyn/azith) -sedated with Fent/Prop -alkalemic Active Medications Acetaminophen (Tylenol -) 650 mg PO Q4H PRN PRN Reason: FEVER OR PAIN Last Admin: 05/01/16 21:15 Dose: 650 mg Albuterol/Ipratropium (Duoneb -) 1 amp NEB Q6H PRN PRN Reason: SHORTNESS OF BREATH Atorvastatin Calcium (Lipitor -) 10 mg PO HS [facility] Last Admin: 05/01/16 21:31 Dose: Not Given Chlorhexidine Gluconate (Hibiclens For Decolonization -) 1 applic TP HS [facility] Last Admin: 05/01/16 21:15 Dose: 1 applic Furosemide (Lasix -) 60 mg PO BIDLASIX [facility] Last Admin: 05/02/16 06:09 Dose: 60 mg Azithromycin (Zithromax 500mg Ivpb (Pre-Docked)) 250 mls @ 250 mls/hr IVPB DAILY [facility] Last Admin: 05/01/16 21:14 Dose: 250 mls/hr Methimazole (Tapazole -) 10 mg PO DAILY [facility] Multivitamins (Total B With C -) 1 each PO DAILY [facility] Multivitamins/Minerals/Vitamin C (Tab-A-Vit -) 1 tab PO DAILY [facility] Mupirocin (Bactroban Ointment (For Decolonization) -) 1 applic NS BID [facility] Stop: 05/06/16 21:59 Last Admin: 05/01/16 22:49 Dose: Not Given Pantoprazole Sodium (Protonix -) 20 mg PO DAILY [facility] Potassium Chloride (K-Dur -) 20 meq PO Q2D@1000 [facility] Prednisone (Deltasone -) 10 mg PO DAILY [facility] Rivaroxaban (Xarelto -) 20 mg PO DAILY [facility] Timolol Maleate (Timoptic 0.5%) 1 drop OU DAILY [facility] Tramadol HCl (Ultram -) 50 mg PO DAILY [facility] Vital Signs Temp 99.5 F 05/03/16 06:52 Pulse 100 H 05/03/16 06:00 Resp 17 05/03/16 07:49 BP 122/76 05/03/16 06:00 Pulse Ox 99 01/14/17 21:49 Intake & Output 05/02/16 05/02/16 05/03/16 11:59 23:59 11:59 Intake Total 750 1000 800 Output Total 1999 2900 600 Balance -1250 -1900 200 Weight 165.76 kg 161.054 kg Intake: IV 150 600 Diprivan - 100 ml @ 10 150 600 MCG/KG/MIN 9.946 mls/hr IVPB TITR [facility] Rx#: [id number] IVPB 250 450 200 Oral 500 400 Output: Urine 1999 2900 600 Void 1999 2900 600 Other: Voiding Method Urinal Indwelling Catheter # Unmeasured Voids Void 2 Weight Measurement Method Built [facility] Constitutional: Yes: Well Nourished, intubated sedated Eyes: Yes: PERRL HENT: Yes: Atraumatic, Normocephalic Neck: Yes: Trachea Midline. No: Lymphadenopathy Cardiovascular: Yes: Regular Rate and Rhythm Respiratory: scattered rhonchi, no wheezes Gastrointestinal: Yes: Normal Bowel Sounds, Soft, Abdomen, Obese ...Rectal Exam: Yes: Deferred Renal/: Yes: WNL Breast(s): Yes: WNL Musculoskeletal: Yes: WNL Extremities: Yes: WNL, Other (venous stasis changes) Edema: Yes Edema: LUE: Trace, RUE: Trace, LLE: 1+, RLE: 1+ Integumentary: Yes: WNL, venous stasis changes ...Motor Strength: WNL Psychiatric: Yes: sedated Imaging - Results X-ray: vascular congestion, LLL infiltrate, repeat pending EKG: SR, no ischemic changes Problem List - Problems (1) DVT (deep venous thrombosis) Code(s): I82.409 - ACUTE EMBOLISM AND THOMBOS UNSP DEEP VN UNSP LOWER EXTREMITY (2) Hypercapnic respiratory failure Code(s): J96.92 - RESPIRATORY FAILURE, UNSPECIFIED WITH HYPERCAPNIA Qualifiers : Chronicity: acute on chronic Qualified Code(s): J96.22 - Acute and chronic respiratory failure with hypercapnia (3) Hypoxemia Code(s): R09.02 - HYPOXEMIA (4) Morbid obesity with BMI of 50.0-59.9, adult Code(s): Z68.43 - BODY MASS INDEX (BMI) 50-59.9 , ADULT Assessment/Plan PULM/CCM Pt seen and examined in the ICU A/ 45 y/o man with morbid obesity, COPD with chronic hypercapnea p/w progessive PIÑA and SOB c/w COPD exacerbation vs progression of disease from OHS. He has no sick prodrome, no productive cough or apparent sick contact, now intubated for hypercapneic resp failure. 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 (serum Bicarb has been rising despite home NIV) -Nebs -solumedrol -azith Vanc/ zosyn -ID to see today -gentle diuresis, appears pretty dry -Fent and propofol for sedation -cont oral anticoagulation, can switch to Hep gtt if planned procedures/trach -PPI Rajat [facility] [id number] [facility] Problem List - Problems (1) DVT (deep venous thrombosis) Code(s): I82.409 - ACUTE EMBOLISM AND THOMBOS UNSP DEEP VN UNSP LOWER EXTREMITY (2) Hypercapnic respiratory failure Code(s): J96.92 - RESPIRATORY FAILURE, UNSPECIFIED WITH HYPERCAPNIA Qualifiers : Chronicity: acute on chronic Qualified Code(s): J96.22 - Acute and chronic respiratory failure with hypercapnia (3) Hypoxemia Code(s): R09.02 - HYPOXEMIA (4) Morbid obesity with BMI of 50.0-59.9, adult Code(s): Z68.43 - BODY MASS INDEX (BMI) 50-59.9 , ADULT
[2016-05-03] MEDS ORDERED: PROPOFOL 100 ML ONE ×2 (07:55→17:47)
[2016-05-03] MEDS ORDERED: PT OWN MED DRAWER 7, Y5N ONE (09:11)
[2016-05-03] MEDS: RIVAROXABAN 20 MG TABLET PO SCH (09:25)
[2016-05-03] MEDS: MULTIVITAMINS (DAILY MVI) TABLET (FP) PO SCH (09:25)
[2016-05-03] MEDS: HYDROCORTISONE SOD SUCCINATE 100 MG/2 ML VIAL IVPB SCH ×2 (09:25→22:10)
[2016-05-03] MEDS: VITAMIN B COMPLEX W/C COMBO TABLET (FP) PO SCH (09:25)
[2016-05-03] MEDS: amLODIPine BESYLATE 5 MG TABLET (FP) PO SCH (09:26)
[2016-05-03] MEDS: METHIMAZOLE 10 MG TABLET (FP) PO SCH (09:26)
[2016-05-03] MEDS: PANTOPRAZOLE 20 MG TABLET (FP) PO SCH (09:26)
[2016-05-03] MEDS: TIMOLOL 0.5% OPHTHALMIC SOL 5 ML BOTTLE OU SCH (09:27)
[2016-05-03] MEDS ORDERED: POTASSIUM CHLORIDE 40 MEQ/30 ML UNIT DOSE CUP PO ONE (09:32)
[2016-05-03] MEDS ORDERED: PROPOFOL 200 ML ONE ×2 (09:50→12:58)
[2016-05-03] MEDS ORDERED: POTASSIUM CHLORIDE TABS 20 MEQ TABLET.ER (FP) PO SCH (10:00)
[2016-05-03] MEDS ORDERED: FUROSEMIDE 40 MG TABLET (FP) PO SCH (10:00)
--- NOTE | 2016-05-03 10:02 | PN ---
Progress Note (short form) - Note Progress Note: Subjective: no events over night . unable to obtain hx Objective: Vital Signs: Last Vital Signs Temp Pulse Resp BP Pulse Ox 99.5 F 100 H 13 136/75 98 05/03/16 06:52 05/03/16 06:00 05/03/16 09:00 05/03/16 08:00 05/03/16 09:00 I&O: Intake & Output 04/30/16 05/01/16 05/02/16 05/03/16 23:59 23:59 23:59 23:59 Intake Total 1750 800 Output Total 4900 600 Balance -3150 200 Weight 365 lb 6.4 oz 365 lb 7 oz 355 lb 1 oz Labs: Laboratory Results - last 24 hr 05/02/16 05/02/16 05/02/16 10:50 13:55 15:45 WBC RBC Hgb Hct MCV MCHC RDW Plt Count MPV Puncture Site Right radial Md puncture Right radial ABG pH 7.23 L* 7.19 L* 7.41 D ABG pCO2 at Pt Temp 104.0 H* D 117.0 H* 63.4 H* D ABG pO2 at Pt Temp 56.6 L 70.4 L D 58.4 L ABG HCO3 42.0 H* 42.6 H* 39.3 H ABG O2 Sat (Measured) 84.2 L 91.0 92.2 ABG O2 Content 16.5 18.6 16.4 ABG Base Excess 9.8 H 8.7 H 12.2 H Orlin Test Positive Not applicable Positive O2 Delivery Device Nasal Ot Ot Oxygen Flow Rate 3lpm 40% 50% Vent Mode St Ac Vent Rate 12 16 Mechanical Rate Bipap Esprit PEEP 0.0 0.0 10.0 Pressure Support Vent 12/5 500 Sodium Potassium Chloride Carbon Dioxide Anion Gap BUN Creatinine Random Glucose Calcium 05/03/16 05/03/16 05/03/16 05:20 05:20 07:50 WBC 10.2 H RBC 4.48 Hgb 13.0 Hct 40.5 MCV 90.3 MCHC 32.1 RDW 16.0 H Plt Count 215 MPV 7.8 Puncture Site Right radial ABG pH 7.61 H* D ABG pCO2 at Pt Temp 39.5 D ABG pO2 at Pt Temp 53.8 L ABG HCO3 40.3 H* ABG O2 Sat (Measured) 92.8 ABG O2 Content 17.4 ABG Base Excess 16.4 H* Orlin Test Positive O2 Delivery Device Mech vent Oxygen Flow Rate 35% Vent Mode A/c Vent Rate 17 Mechanical Rate Yes PEEP 10.0 Pressure Support Vent 475 Sodium 138 Potassium 3.1 L D Chloride 90 L Carbon Dioxide 39 H Anion Gap 9 BUN 9 D Creatinine 0.8 D Random Glucose 81 Calcium 8.1 L PE : NAD,inrubated , sedated, opens his eyes HEENT: ET tube i n CV: RRR, no MRG Lungs:clear lungs . no wheezes Ext : thick skin on Legs , pitting edema ASSESSMENT AND PLAN: 45 y/o man with h/o morbid obesity, BONY, COPD-emphysema, diastolic CHF, anemia , UGI bleed, HTN, hyperthyroid, gluacoma, DVT, kidney stones and hiatal hernia , recent intubation due to acute resp failure , who presented with SOb and was found to have acute on chronic resp failure due to copd exa. 1- ACute on chronic resp failure due to Acute COPD exacerbation. possible PNA - ABG with resp alkalosis this Am ,Vent rate decreased . will follow - Abx for Hcap coverage - cont solu-medrol - Duo-NEbs - if decision to trach , will change to heparin gtt 2- H/o Diastolic CHF . chronic , does not appear in acute exacerbation. last echo in 2015 showed nL EF and LV size - cont home dose lasix . if develops Met Alk , will decrease lasix dose , but fo rnow will keep as he is getting lots of iVF through drips - appreciate cardiac Recs 3- H/o DVT : cont xarelto. heparin gtt if to trach 4- HTN: cont Norvasc 5- ICU level of care Visit type - Emergency Visit Emergency Visit: Yes ED Registration Date: 05/01/16 Care time: The patient presented to the Emergency Department on the above date and was hospitalized for further evaluation of their emergent condition. - New Patient This patient is new to me today: No - Critical Care Critical Care patient: Yes Total Critical Care Time (in minutes): 40 Critical Care Statement: The care of this patient involved high complexity decision making to prevent further life threatening deterioration of the patient 's condition and/or to evalute & treat vital organ system(s) failure or risk of failure.
[2016-05-03] MEDS: MUPIROCIN 2% TOPICAL OINTMENT FOR DECOLONIZATION NS SCH ×2 (10:08→22:10)
[2016-05-03] MEDS: AZITHROMYCIN IVPB 250 ML IVPB SCH (10:08)
--- NOTE | 2016-05-03 11:56 | PN ---
Progress Note (short form) - Note Progress Note: ID Consult dictated Respiratory failure Exacerbation COPD HCAP Possible sepsis secondary to pneumonia CHF Hx MRSA colonization, resp tract Morbid obesity Pending workup, empiric zosyn/ vancomycin Critical care time 40min
[2016-05-03] MEDS ORDERED: POTASSIUM CHLORIDE 40 MEQ/30 ML UNIT DOSE CUP ONE (12:25)
--- NOTE | 2016-05-03 13:13 | CONS ---
DATE OF CONSULTATION: DATE OF DICTATION: 05/03/2016 A 45-year-old morbidly obese male with a history of COPD, evaluated for hospital-acquired pneumonia. The patient was admitted to the hospital on May 01, 2016, with a 4-day history of worsening shortness of breath. He denied any associated chest pain, fever or chills. He required admission to the ICU, where he was placed on BiPAP mask. His course was complicated by acute hypercapnic respiratory failure, requiring intubation on May 02, 2016. Chest x-ray now shows increasing congestion/infiltrates bilaterally. He was empirically placed on vancomycin and Zosyn. At the present time he is on a respirator. He is in no acute distress. Past medical history positive for oxygen and BiPAP-dependent COPD, morbid obesity, obstructive sleep apnea, congestive heart failure, hyperlipidemia, nephrolithiasis, history of bleeding duodenal ulcer. Allergies to ASPIRIN. MEDICATIONS: Solu-Cortef, Advair, Tylenol, Zithromax, Zosyn, vancomycin, Xarelto, Tapazole, DuoNeb, propofol, Lipitor, Lasix, fentanyl. SOCIAL HISTORY: Lives at home. Former smoker. SYSTEMS REVIEW: Neurologic: No loss of consciousness, seizure activity, focal weakness. Cardiac: Negative chest pain or palpitations. Respiratory: As per HPI. Gastrointestinal: Negative vomiting or diarrhea. Genitourinary: Negative for urinary tract infection. LABORATORY DATA: White count 10.2, hematocrit 40.5, platelet count 215, BUN 9, creatinine 0.8. Urinalysis: 2 white cells. Blood cultures negative. Chest x-ray shows increased lung markings, mid and lower lung olson bilaterally. PHYSICAL EXAMINATION: General: He is intubated, he is sedated, he is morbidly obese, in no acute respiratory distress. Vital Signs: Temperature 99.2. Blood pressure 132/72. Pulse 112, regular. Respirations 20 per minute. ENT: Sclerae anicteric. Patient is orally intubated. Heart Sounds: S1, S2. Tachycardic. Lungs: Air entry bilaterally. Abdomen: Obese, soft, nontender. Extremities: Positive for lower extremity edema and chronic venous stasis dermatitis. IMPRESSION: 1. Hypercapnic respiratory failure. 2. Exacerbation of chronic obstructive pulmonary disease. 3. Health-care acquired pneumonia. 4. Possible sepsis secondary to pneumonia. 5. Congestive heart failure. 6. 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 7. Morbid obesity. Pending culture results, empiric antibiotic coverage with Zosyn and vancomycin. Influenza swab. Ventilatory support. CRITICAL CARE TIME SPENT: 40 minutes. Thank you for the kind referral. SHERRY RAMACHANDRAN M.D. [id number]
[2016-05-03] MEDS: PROPOFOL 100 ML IVPB SCH ×3 (17:04→22:12)
[2016-05-03] MEDS: FENTANYL INJECTION 500 MCG in DEXTROSE 5%-WATER - 90 ML IJ SCH (20:13)
[2016-05-03] MEDS ORDERED: VANCOMYCIN 1,250 MG in DEXTROSE 5%-WATER - 250 ML IVPB SCH (22:00)
[2016-05-03] MEDS: ATORVASTATIN CA 10 MG TABLET (FP) PO SCH (22:10)
[2016-05-03] MEDS: CHLORHEXIDINE GLUCONATE 4% CLEANSER FOR DECOLONIZATION TP SCH (22:11)
[2016-05-03] MEDS: FLUTICASONE/SALMETEROL 100 MCG/50 MCG DISKUS IH SCH (22:11)
--- NOTE | 2016-05-04 00:11 | PN ---
Progress Note, Physician Chief Complaint: Pt was intubated; opens eyes, tries to communicate. History of Present Illness: This is a 45 year old black male with a past medical history of morbid obesity, OBNY, COPD-emphysema, diastolic CHF, anemia, UGI bleed, HTN, hyperthyroid, gluacoma, DVT, s/p substance abuse; kidney stones, and hiatal hernia, who presents with increasing SOB x 4 days. Denies fever, chills, increased cough. Reports that he just hasn't been able to breathe the same since his intubation in January. Denies chest pain, nausea, vomiting. Pt also states his CPAP is not working properly. ER course was notable for: (1) WBC 12.1 (2) BNP 714 - Current Medication List Current Medications: Active Medications Acetaminophen (Tylenol -) 650 mg PO Q4H PRN PRN Reason: FEVER OR PAIN Last Admin: 05/01/16 21:15 Dose: 650 mg Albuterol/Ipratropium (Duoneb -) 1 amp NEB Q6H PRN PRN Reason: SHORTNESS OF BREATH Albuterol/Ipratropium (Duoneb -) 1 amp NEB Q6H [facility] Last Admin: 05/03/16 23:05 Dose: 1 amp Amlodipine Besylate (Norvasc -) 5 mg PO DAILY [facility] Last Admin: 05/03/16 09:26 Dose: 5 mg Atorvastatin Calcium (Lipitor -) 10 mg PO HS [facility] Last Admin: 05/03/16 22:10 Dose: 10 mg Chlorhexidine Gluconate (Hibiclens For Decolonization -) 1 applic TP HS [facility] Last Admin: 05/03/16 22:11 Dose: 1 applic Furosemide (Lasix -) 60 mg PO BID [facility] Last Admin: 05/03/16 22:09 Dose: 60 mg Hydrocortisone Sodium Succinate (Solu-Cortef -) 40 mg IVPB BID [facility] Last Admin: 05/03/16 22:10 Dose: 40 mg Azithromycin (Zithromax 500mg Ivpb (Pre-Docked)) 250 mls @ 250 mls/hr IVPB DAILY [facility] Last Admin: 05/03/16 10:08 Dose: 250 mls/hr Propofol (Diprivan -) 100 mls @ 9.946 mls/hr IVPB TITR [facility]; 10 MCG/KG/MIN PRN Reason: Protocol Last Admin: 05/03/16 22:12 Dose: 49.728 mls/hr Fentanyl 500 mcg/ Dextrose 100 mls @ 5 mls/hr IJ TITR [facility]ALL[facility]I PRN Reason: 25 MCG/HR Last Admin: 05/03/16 20:13 Dose: 12 mls/hr Vancomycin HCl 1,250 mg/ (Dextrose) 250 mls @ 166.667 mls/hr IVPB BID [facility] Last Admin: 05/03/16 22:11 Dose: 166.667 mls/hr Piperacillin Sod/Tazobactam Sod (Zosyn 4.5gm Ivpb (Pre-Docked)) 100 mls @ 200 mls/hr IVPB Q6H-IV [facility] Last Admin: 05/03/16 20:14 Dose: 200 mls/hr Methimazole (Tapazole -) 10 mg PO DAILY [facility] Last Admin: 05/03/16 09:26 Dose: 10 mg Multivitamins (Total B With C -) 1 each PO DAILY [facility] Last Admin: 05/03/16 09:25 Dose: 1 each Multivitamins/Minerals/Vitamin C (Tab-A-Vit -) 1 tab PO DAILY [facility] Last Admin: 05/03/16 09:25 Dose: 1 tab Mupirocin (Bactroban Ointment (For Decolonization) -) 1 applic NS BID [facility] Stop: 05/06/16 21:59 Last Admin: 05/03/16 22:10 Dose: 1 applic Pantoprazole Sodium (Protonix -) 20 mg PO DAILY [facility] Last Admin: 05/03/16 09:26 Dose: 20 mg Potassium Chloride (K-Dur -) 20 meq PO Q2D@1000 [facility] Last Admin: 05/03/16 09:26 Dose: 20 meq Rivaroxaban (Xarelto -) 20 mg PO DAILY [facility] Last Admin: 05/03/16 09:25 Dose: 20 mg Fluticasone/Salmeterol (Advair 100mcg/50mcg -) 1 puff IH BID [facility] Last Admin: 05/03/16 22:11 Dose: Not Given Timolol Maleate (Timoptic 0.5%) 1 drop OU DAILY [facility] Last Admin: 05/03/16 09:27 Dose: 1 drop - Objective Vital Signs: Vital Signs Temperature 99 F 05/04/16 00:00 Pulse Rate 95 H 05/04/16 00:00 Respiratory Rate 12 05/04/16 00:00 Blood Pressure 97/60 05/04/16 00:00 O2 Sat by Pulse Oximetry (%) 99 05/03/16 22:00 Constitutional: Yes: Obese Eyes: Yes: WNL HENT: Yes: WNL Neck: Yes: Decreased ROM, Other (intubated;) Cardiovascular: Yes: Tachycardia Respiratory: Yes: Diminished Gastrointestinal: Yes: Soft, Abdomen, Obese Genitourinary: No: Anuria Musculoskeletal: Yes: Joint Swelling, Muscle Weakness Extremities: Yes: Cool Edema: Yes Edema: LLE: 2+, RLE: 2+ Peripheral Pulses WNL: No Neurological: Yes: Weakness, Other (intubated) Psychiatric: Yes: Other Labs: CBC, BMP 05/03/16 05:20 05/03/16 05:20 INR, PTT INR 2.68 (0.82-1.09) H D 05/01/16 16:20 Abnormal Lab Results 05/03/16 05/03/16 05/03/16 05:20 05:20 07:50 WBC 10.2 H RDW 16.0 H ABG pH 7.61 H* D ABG pO2 at Pt Temp 53.8 L ABG HCO3 40.3 H* ABG Base Excess 16.4 H* Potassium 3.1 L D Chloride 90 L Carbon Dioxide 39 H Calcium 8.1 L - ....Imaging Chest X-ray: Image Reviewed (right infiltrate (some improvement)) Other: Image Reviewed (sinus tachycardia) Problem List - Problems (1) Edema Code(s): R60.9 - EDEMA, UNSPECIFIED (2) Acute on chronic diastolic CHF (congestive heart failure) Assessment/Plan: On amlodipine and furosemide. TNI < 0.02 x 2. F/u BUN/Cr, elecrolytes, daily weight, Is and Os. Now intubated. Code(s): I50.33 - ACUTE ON CHRONIC DIASTOLIC (CONGESTIVE) HEART FAILURE (3) COPD exacerbation Code(s): J44.1 - CHRONIC OBSTRUCTIVE PULMONARY DISEASE W (ACUTE) EXACERBATION (4) Depression Code(s): F32.9 - MAJOR DEPRESSIVE DISORDER, SINGLE EPISODE, UNSPECIFIED (5) Diastolic CHF Code(s): I50.30 - UNSPECIFIED DIASTOLIC (CONGESTIVE) HEART FAILURE Qualifiers : Congestive heart failure chronicity: acute on chronic Qualified Code(s) : I50.33 - Acute on chronic diastolic (congestive) heart failure (6) Dvt femoral (deep venous thrombosis) Assessment/Plan: Continue rivaroxaban. Code(s): I82.419 - ACUTE EMBOLISM AND THROMBOSIS OF UNSPECIFIED FEMORAL VEIN (7) HTN (hypertension) Assessment/Plan: Restart antihypertensives.(presently on furosemide and amlodipine). Code(s): I10 - ESSENTIAL (PRIMARY) HYPERTENSION (8) Moderate to severe pulmonary hypertension Code(s): I27.2 - OTHER SECONDARY PULMONARY HYPERTENSION (9) Hypercapnic respiratory failure Assessment/Plan: Intubated. Steroids, antibiotics, and bronchodilators per pulmonology. Code(s): J96.92 - RESPIRATORY FAILURE, UNSPECIFIED WITH HYPERCAPNIA Qualifiers : Chronicity: acute on chronic Qualified Code(s): J96.22 - Acute and chronic respiratory failure with hypercapnia (10) Morbid obesity Code(s): E66.01 - MORBID (SEVERE) OBESITY DUE TO EXCESS CALORIES Qualifiers: Obesity type: due to excess calories Qualified Code(s): E66.01 - Morbid (severe) obesity due to excess calories (11) Obstructive apnea Code(s): G47.33 - OBSTRUCTIVE SLEEP APNEA (ADULT) (PEDIATRIC)
[2016-05-04] MEDS: PIPERACILLIN/TAZOB 4.5 GM 100 ML IVPB SCH (03:24)
[2016-05-04 06:14] LABS: BASOPHIL 0.3 % (0-2.0); EOSINOPHIL 1.3 % (0-4.5); MCHC 31.2 g/dl (32.0-35.9); MEAN CELL VOLUME 89.6 fl (80-96); MEAN PLT VOLUME 7.7 fl (7.5-11.1); NEUTROPHILS 78.8 % (42.8-82.8); PLATELET COUNT 237 K/MM3 (134-434); RDW 16.5 % (11.9-15.9); WHITE BLOOD COUNT 8.3 K/mm3 (4.0-10.0)
[2016-05-04 07:11] LABS: CALCIUM 8.1 mg/dL (8.5-10.1); MAGNESIUM 1.9 mg/dL (1.8-2.4)
[2016-05-04 07:14] LABS: PHOSPHOROUS 4.5 mg/dL (2.5-4.9)
[2016-05-04 07:52] LABS: ALLENS TEST POSITIVE; ARTERIAL BLD GAS O2 SATURATION 96.5 % (90-98.9); ARTERIAL BLOOD GAS BASE EXCESS 13.1 meq/l (-2-2); ARTERIAL BLOOD GAS HCO3 38.8 meq/L (22-26); ARTERIAL BLOOD GAS pH 7.48 (7.35-7.45)
[2016-05-04 07:53] LABS: ART PUNCT SITE RIGHT RADIAL; LPM/O2% 35%; MECH. VENT. Y; PT. ON O2? YES; TYPE OF O2 VENT; VENT RATE 12; VT/PRESS 475
--- NOTE | 2016-05-04 08:03 | PN ---
Progress Note, Physician Chief Complaint: ID Intubated No fever - Current Medication List Current Medications: Active Medications Acetaminophen (Tylenol -) 650 mg PO Q4H PRN PRN Reason: FEVER OR PAIN Last Admin: 05/01/16 21:15 Dose: 650 mg Albuterol/Ipratropium (Duoneb -) 1 amp NEB Q6H PRN PRN Reason: SHORTNESS OF BREATH Albuterol/Ipratropium (Duoneb -) 1 amp NEB Q6H [facility] Last Admin: 05/03/16 23:05 Dose: 1 amp Amlodipine Besylate (Norvasc -) 5 mg PO DAILY [facility] Last Admin: 05/03/16 09:26 Dose: 5 mg Atorvastatin Calcium (Lipitor -) 10 mg PO HS [facility] Last Admin: 05/03/16 22:10 Dose: 10 mg Chlorhexidine Gluconate (Hibiclens For Decolonization -) 1 applic TP HS [facility] Last Admin: 05/03/16 22:11 Dose: 1 applic Furosemide (Lasix -) 60 mg PO BID [facility] Last Admin: 05/03/16 22:09 Dose: 60 mg Hydrocortisone Sodium Succinate (Solu-Cortef -) 40 mg IVPB BID [facility] Last Admin: 05/03/16 22:10 Dose: 40 mg Azithromycin (Zithromax 500mg Ivpb (Pre-Docked)) 250 mls @ 250 mls/hr IVPB DAILY [facility] Last Admin: 05/03/16 10:08 Dose: 250 mls/hr Propofol (Diprivan -) 100 mls @ 9.946 mls/hr IVPB TITR [facility]; 10 MCG/KG/MIN PRN Reason: Protocol Last Admin: 05/03/16 22:12 Dose: 49.728 mls/hr Fentanyl 500 mcg/ Dextrose 100 mls @ 5 mls/hr IJ TITR [facility] PRN Reason: 25 MCG/HR Last Admin: 05/03/16 20:13 Dose: 12 mls/hr Vancomycin HCl 1,250 mg/ (Dextrose) 250 mls @ 166.667 mls/hr IVPB BID [facility] Last Admin: 05/03/16 22:11 Dose: 166.667 mls/hr Piperacillin Sod/Tazobactam Sod (Zosyn 4.5gm Ivpb (Pre-Docked)) 100 mls @ 200 mls/hr IVPB Q6H-IV [facility] Last Admin: 05/04/16 03:24 Dose: 200 mls/hr Methimazole (Tapazole -) 10 mg PO DAILY [facility] Last Admin: 05/03/16 09:26 Dose: 10 mg Multivitamins (Total B With C -) 1 each PO DAILY [facility] Last Admin: 05/03/16 09:25 Dose: 1 each Multivitamins/Minerals/Vitamin C (Tab-A-Vit -) 1 tab PO DAILY [facility] Last Admin: 05/03/16 09:25 Dose: 1 tab Mupirocin (Bactroban Ointment (For Decolonization) -) 1 applic NS BID [facility] Stop: 05/06/16 21:59 Last Admin: 05/03/16 22:10 Dose: 1 applic Pantoprazole Sodium (Protonix -) 20 mg PO DAILY [facility] Last Admin: 05/03/16 09:26 Dose: 20 mg Potassium Chloride (K-Dur -) 20 meq PO Q2D@1000 [facility] Last Admin: 05/03/16 09:26 Dose: 20 meq Potassium Chloride (Kcl Oral Solution -) 40 meq PO ONCE ONE Stop: 05/04/16 07:40 Rivaroxaban (Xarelto -) 20 mg PO DAILY [facility] Last Admin: 05/03/16 09:25 Dose: 20 mg Fluticasone/Salmeterol (Advair 100mcg/50mcg -) 1 puff IH BID [facility] Last Admin: 05/03/16 22:11 Dose: Not Given Timolol Maleate (Timoptic 0.5%) 1 drop OU DAILY [facility] Last Admin: 05/03/16 09:27 Dose: 1 drop - Objective Vital Signs: Vital Signs Temperature 98.9 F 05/04/16 06:00 Pulse Rate 93 H 05/04/16 06:00 Respiratory Rate 12 05/04/16 06:00 Blood Pressure 64/63 05/04/16 06:00 O2 Sat by Pulse Oximetry (%) 97 05/04/16 06:00 Constitutional: Yes: Obese HENT: Yes: Other (Et tube) Cardiovascular: Yes: Regular Rate and Rhythm, S1, S2 Respiratory: Yes: WNL, Regular, CTA Bilaterally Gastrointestinal: Yes: WNL, Normal Bowel Sounds, Soft. No: Tenderness, Tenderness, Rebound Edema: Yes Labs: CBC, BMP 05/04/16 05:05 05/04/16 05:05 INR, PTT INR 2.68 (0.82-1.09) H D 05/01/16 16:20 Assessment/Plan Microbiology 05/02/16 16:00 Sputum - Endotrachea Suction/Ventilator Gram Stain - Final 05/01/16 20:17 Nasopharyngeal Swab Respiratory Virus (PCR) - Preliminary 05/01/16 16:22 Blood - Peripheral Venous Blood Culture - Preliminary NO GROWTH OBTAINED AFTER 48 HOURS, INCUBATION TO CONTINUE FOR 3 DAYS. 05/01/16 16:22 Blood - Peripheral Venous Blood Culture - Preliminary NO GROWTH OBTAINED AFTER 48 HOURS, INCUBATION TO CONTINUE FOR 3 DAYS. Laboratory Tests 05/01/16 05/04/16 05/04/16 16:22 05:05 05:05 WBC 8.3 Hgb 12.3 Hct 39.3 Plt Count 237 ABG pH Oxygen Flow Rate BUN 12 D Creatinine 1.0 D Lactic Acid 1.016 05/04/16 07:42 WBC Hgb Hct Plt Count ABG pH 7.48 H Oxygen Flow Rate 35% BUN Creatinine Lactic Acid Assessment Hypercapneic respiratory failure with no criteria sepsis or evidence for infection /PNA Plan Stop antibiotics Discussed with primary care Anup GIANG
--- NOTE | 2016-05-04 08:09 | PN ---
Progress Note (short form) - Note Progress Note: Subjective: no events over night . unable to obtain hx as intubated Objective: Vital Signs: Last Vital Signs Temp Pulse Resp BP Pulse Ox 98.9 F 93 H 12 64/63 97 05/04/16 06:00 05/04/16 06:00 05/04/16 06:00 05/04/16 06:00 05/04/16 06:00 I&O: Intake & Output 05/01/16 05/02/16 05/03/16 05/04/16 23:59 23:59 23:59 23:59 Intake Total 1750 2925 960.8 Output Total 4900 2600 1400 Balance -3150 325 -439.2 Weight 365 lb 6.4 oz 365 lb 7 oz 355 lb 1 oz 355 lb 14.4 oz Labs: Laboratory Results - last 24 hr 05/04/16 05/04/16 05/04/16 05:05 05:05 07:42 WBC 8.3 RBC 4.39 Hgb 12.3 Hct 39.3 MCV 89.6 MCHC 31.2 L RDW 16.5 H Plt Count 237 MPV 7.7 Neutrophils % 78.8 Lymphocytes % 8.7 D Monocytes % 10.9 H Eosinophils % 1.3 Basophils % 0.3 Puncture Site Right radial ABG pH 7.48 H ABG pCO2 at Pt Temp 53.2 H D ABG pO2 at Pt Temp 84.0 D ABG HCO3 38.8 H ABG O2 Sat (Measured) 96.5 ABG O2 Content 16.4 ABG Base Excess 13.1 H Orlin Test Positive O2 Delivery Device Vent Oxygen Flow Rate 35% Vent Mode A/c Vent Rate 12 Mechanical Rate Y PEEP 10.0 Pressure Support Vent 475 Sodium 136 Potassium 3.3 L Chloride 91 L Carbon Dioxide 39 H Anion Gap 6 L BUN 12 D Creatinine 1.0 D Random Glucose 151 H D Calcium 8.1 L Phosphorus 4.5 Magnesium 1.9 PE: NAD,inrubated , sedated , looks comfortable HEENT: ET tube in CV: RRR, no MRG Lungs:clear lungs . no wheezes Ext : thick skin on Legs , pitting edema ASSESSMENT AND PLAN: 45 y/o man with h/o morbid obesity, BONY, COPD-emphysema, diastolic CHF, anemia , UGI bleed, HTN, hyperthyroid, gluacoma, DVT, kidney stones and hiatal hernia , recent intubation due to acute resp failure , who presented with SOb and was found to have acute on chronic resp failure due to copd exa. 1- Acute on chronic hypercapnic resp failure due to Acute COPD exacerbation. - CAse d/w Dr. Hebert , agree with no need fo rAbx as there is no evidence of PNA . - ABG pending - cont solu-medrol BID - Duo-NEbs - if decision to trach , will change to heparin gtt 2- H/o Diastolic CHF . chronic , does not appear in acute exacerbation. last echo in 2015 showed nL EF and LV size -cotn lasix BID , I&O neg 400cc in past 24 hr - appreciate cardiac Recs 3- H/o DVT : cont xarelto. heparin gtt if to trach 4- HTN: cont Norvasc 5- hypokalemia: replete in addition to daily Kcl ICU level of care Visit type - Emergency Visit Emergency Visit: Yes ED Registration Date: 05/01/16 Care time: The patient presented to the Emergency Department on the above date and was hospitalized for further evaluation of their emergent condition. - New Patient This patient is new to me today: No - Critical Care Critical Care patient: Yes Total Critical Care Time (in minutes): 35 Critical Care Statement: The care of this patient involved high complexity decision making to prevent further life threatening deterioration of the patient 's condition and/or to evalute & treat vital organ system(s) failure or risk of failure.
[2016-05-04] MEDS ORDERED: PT OWN MED DRAWER 7, Y5N ONE ×2 (09:11→09:41)
[2016-05-04] MEDS: FUROSEMIDE 40 MG TABLET (FP) PO SCH ×2 (09:29→21:27)
[2016-05-04] MEDS: amLODIPine BESYLATE 5 MG TABLET (FP) PO SCH (09:30)
[2016-05-04] MEDS ORDERED: POTASSIUM CHLORIDE 40 MEQ/30 ML UNIT DOSE CUP PO ONE (09:30)
[2016-05-04] MEDS: PANTOPRAZOLE 20 MG TABLET (FP) PO SCH (09:30)
[2016-05-04] MEDS: MUPIROCIN 2% TOPICAL OINTMENT FOR DECOLONIZATION NS SCH ×2 (09:30→21:28)
[2016-05-04] MEDS: MULTIVITAMINS (DAILY MVI) TABLET (FP) PO SCH (09:31)
[2016-05-04] MEDS: VITAMIN B COMPLEX W/C COMBO TABLET (FP) PO SCH (09:31)
[2016-05-04] MEDS: methylPREDNISolone NA SUCC 40 MG/1 ML VIAL IVPB SCH ×2 (09:31→21:27)
[2016-05-04] MEDS: RIVAROXABAN 20 MG TABLET PO SCH (09:31)
[2016-05-04] MEDS: METHIMAZOLE 10 MG TABLET (FP) PO SCH (09:41)
[2016-05-04] MEDS: TIMOLOL 0.5% OPHTHALMIC SOL 5 ML BOTTLE OU SCH (09:41)
[2016-05-04] MEDS: FENTANYL INJECTION 500 MCG in DEXTROSE 5%-WATER - 90 ML IJ SCH ×2 (09:55→21:26)
[2016-05-04] MEDS: PROPOFOL 100 ML IVPB SCH ×4 (10:09→20:00)
--- NOTE | 2016-05-04 10:44 | PN ---
Progress Note (short form) - Note Progress Note: PULMONARY/CCM Pt seen and examined in the ICU. Remains intubated, sedated on propofol and fentanyl gtts. Saturating well on volume assist control with 35% Fio2 and PEEP 10. No fevers recorded. Last Vital Signs Temp Pulse Resp BP Pulse Ox 98.4 F 93 H 13 98/65 100 05/04/16 10:00 05/04/16 10:15 05/04/16 10:15 05/04/16 10:00 05/04/16 10:17 Intake & Output 05/01/16 05/02/16 05/03/16 05/04/16 23:59 23:59 23:59 23:59 Intake Total 1750 2925 960.8 Output Total 4900 2600 1400 Balance -3150 325 -439.2 Weight 365 lb 6.4 oz 365 lb 7 oz 355 lb 1 oz 355 lb 14.4 oz Gen: intubated, sedated Heart: RRR Lung: distant breath sounds, no wheezes appreciated Abd: soft, obese, nontender Ext: no edema CBC, BMP 05/04/16 05:05 05/04/16 05:05 Active Medications Acetaminophen (Tylenol -) 650 mg PO Q4H PRN PRN Reason: FEVER OR PAIN Last Admin: 05/01/16 21:15 Dose: 650 mg Albuterol/Ipratropium (Duoneb -) 1 amp NEB Q6H PRN PRN Reason: SHORTNESS OF BREATH Albuterol/Ipratropium (Duoneb -) 1 amp NEB Q6H [facility] Last Admin: 05/03/16 23:05 Dose: 1 amp Amlodipine Besylate (Norvasc -) 5 mg PO DAILY [facility] Last Admin: 05/04/16 09:30 Dose: 5 mg Atorvastatin Calcium (Lipitor -) 10 mg PO HS [facility] Last Admin: 05/03/16 22:10 Dose: 10 mg Chlorhexidine Gluconate (Hibiclens For Decolonization -) 1 applic TP [facility] Last Admin: 05/03/16 22:11 Dose: 1 applic Furosemide (Lasix -) 60 mg PO BID [facility] Last Admin: 05/04/16 09:29 Dose: 60 mg Propofol (Diprivan -) 100 mls @ 9.946 mls/hr IVPB TITR PALLAVI; 10 MCG/KG/MIN PRN Reason: Protocol Last Admin: 05/04/16 10:09 Dose: 49.728 mls/hr Fentanyl 500 mcg/ Dextrose 100 mls @ 5 mls/hr IJ TITR PALLAVI PRN Reason: 25 MCG/HR Last Admin: 05/04/16 09:55 Dose: 12 mls/hr Methimazole (Tapazole -) 10 mg PO DAILY [facility] Last Admin: 05/04/16 09:41 Dose: 10 mg Methylprednisolone Sodium Succinate (Solu-Medrol -) 40 mg IVPB BID [facility] Last Admin: 05/04/16 09:31 Dose: 40 mg Multivitamins (Total B With C -) 1 each PO DAILY [facility] Last Admin: 05/04/16 09:31 Dose: 1 each Multivitamins/Minerals/Vitamin C (Tab-A-Vit -) 1 tab PO DAILY [facility] Last Admin: 05/04/16 09:31 Dose: 1 tab Mupirocin (Bactroban Ointment (For Decolonization) -) 1 applic NS BID [facility] Stop: 05/06/16 21:59 Last Admin: 05/04/16 09:30 Dose: 1 applic Pantoprazole Sodium (Protonix -) 20 mg PO DAILY [facility] Last Admin: 05/04/16 09:30 Dose: 20 mg Potassium Chloride (K-Dur -) 20 meq PO Q2D@1000 [facility] Last Admin: 05/03/16 09:26 Dose: 20 meq Rivaroxaban (Xarelto -) 20 mg PO DAILY [facility] Last Admin: 05/04/16 09:31 Dose: 20 mg Fluticasone/Salmeterol (Advair 100mcg/50mcg -) 1 puff IH BID [facility] Last Admin: 05/03/16 22:11 Dose: Not Given Timolol Maleate (Timoptic 0.5%) 1 drop OU DAILY [facility] Last Admin: 05/04/16 09:41 Dose: 1 drop A/P Acute on Chronic Hypoxic and Hypercapneic Respiratory Failure r/o Acute COPD Exacerbation r/o Acute LV Diastolic Dysfunction Morbid Obesity BONY/OHS h/o DVT - agree with monitoring off antibiotics - continue empiric medrol - inhaled bronchodilators - o2 to keep SpO2 88-92% to avoid worsening V/Q mismatch - taper down PEEP - replete lytes - continue lasix - monitor urine output, creatinine - lighten sedation in AM to assess mental status - spontaneous breathing trials as tolerated when mental status improved - enteral feeds - DVT/GI prophylaxis
[2016-05-04] MEDS: ALBUTEROL SO4 2.5/IPRATROPIUM 0.5 INH SOL 3 ML VIAL.NEB. NEB SCH ×2 (11:24→17:38)
--- NOTE | 2016-05-04 14:17 | PN ---
[id number] Current Medications: Active Medications Acetaminophen (Tylenol -) 650 mg PO Q4H PRN PRN Reason: FEVER OR PAIN Last Admin: 05/01/16 21:15 Dose: 650 mg Albuterol/Ipratropium (Duoneb -) 1 amp NEB Q6H PRN PRN Reason: SHORTNESS OF BREATH Albuterol/Ipratropium (Duoneb -) 1 amp NEB Q6H [facility] Last Admin: 05/04/16 11:24 Dose: 1 amp Amlodipine Besylate (Norvasc -) 5 mg PO DAILY [facility] Last Admin: 05/04/16 09:30 Dose: 5 mg Atorvastatin Calcium (Lipitor -) 10 mg PO HS [facility] Last Admin: 05/03/16 22:10 Dose: 10 mg Chlorhexidine Gluconate (Hibiclens For Decolonization -) 1 applic TP HS [facility] Last Admin: 05/03/16 22:11 Dose: 1 applic Furosemide (Lasix -) 60 mg PO BID [facility] Last Admin: 05/04/16 09:29 Dose: 60 mg Propofol (Diprivan -) 100 mls @ 9.946 mls/hr IVPB TITR PALLAVI; 10 MCG/KG/MIN PRN Reason: Protocol Last Admin: 05/04/16 10:09 Dose: 49.728 mls/hr Fentanyl 500 mcg/ Dextrose 100 mls @ 5 mls/hr IJ TITR PALLAVI PRN Reason: 25 MCG/HR Last Admin: 05/04/16 09:55 Dose: 12 mls/hr Methimazole (Tapazole -) 10 mg PO DAILY [facility] Last Admin: 05/04/16 09:41 Dose: 10 mg Methylprednisolone Sodium Succinate (Solu-Medrol -) 40 mg IVPB BID [facility] Last Admin: 05/04/16 09:31 Dose: 40 mg Multivitamins (Total B With C -) 1 each PO DAILY [facility] Last Admin: 05/04/16 09:31 Dose: 1 each Multivitamins/Minerals/Vitamin C (Tab-A-Vit -) 1 tab PO DAILY [facility] Last Admin: 05/04/16 09:31 Dose: 1 tab Mupirocin (Bactroban Ointment (For Decolonization) -) 1 applic NS BID [facility] Stop: 05/06/16 21:59 Last Admin: 05/04/16 09:30 Dose: 1 applic Pantoprazole Sodium (Protonix -) 20 mg PO DAILY [facility] Last Admin: 05/04/16 09:30 Dose: 20 mg Potassium Chloride (K-Dur -) 20 meq PO Q2D@1000 [facility] Last Admin: 05/03/16 09:26 Dose: 20 meq Rivaroxaban (Xarelto -) 20 mg PO DAILY [facility] Last Admin: 05/04/16 09:31 Dose: 20 mg Fluticasone/Salmeterol (Advair 100mcg/50mcg -) 1 puff IH BID [facility] Last Admin: 05/03/16 22:11 Dose: Not Given Timolol Maleate (Timoptic 0.5%) 1 drop OU DAILY [facility] Last Admin: 05/04/16 09:41 Dose: 1 drop - Objective Vital Signs: Vital Signs Temperature 99.4 F 05/04/16 14:00 Pulse Rate 93 H 05/04/16 14:00 Respiratory Rate 18 05/04/16 14:09 Blood Pressure 99/61 05/04/16 14:00 O2 Sat by Pulse Oximetry (%) 100 05/04/16 10:17 Constitutional: Yes: Other (sedated) HENT: Yes: Atraumatic, Normocephalic Neck: Yes: Trachea Midline Cardiovascular: Yes: Regular Rate and Rhythm. No: JVD Respiratory: Yes: Diminished Gastrointestinal: Yes: Soft. No: Tenderness Extremities: Yes: Other (chronic stasis changes) Edema: No Neurological: Yes: Unresponsive (sedated-opens eyes to sounds) Labs: CBC, BMP 05/04/16 05:05 05/04/16 05:05 INR, PTT INR 2.68 (0.82-1.09) H D 05/01/16 16:20 - ....Imaging Chest X-ray: Report Reviewed, Image Reviewed (CM;left basilar infiltrate/ effusion; right base improved compared to previous cxrs 05/02 and 05/03) Problem List - Problems (1) Acute and chronic respiratory failure ([id number]) Code(s): J96.20 - ACUTE AND CHR RESP FAILURE, UNSP W HYPOXIA OR HYPERCAPNIA (2) Obstructive apnea Code(s): G47.33 - OBSTRUCTIVE SLEEP APNEA (ADULT) (PEDIATRIC) (3) Morbid obesity with BMI of 50.0-59.9, adult Code(s): Z68.43 - BODY MASS INDEX (BMI) 50-59.9 , ADULT Assessment/Plan Aciute on Chronic Resp Failure COPD Morbid Obesity BONY Plan: Respirator Support IV Steroids Antibiotic Diuretic O2 to maintain SaO2 >90 Weaning when medical condition stabilizes
--- NOTE | 2016-05-04 15:50 | PN ---
Progress Note, Physician History of Present Illness: This is a 45 year old black male with a past medical history of morbid obesity, BONY, COPD-emphysema, diastolic CHF, anemia, UGI bleed, HTN, hyperthyroid, gluacoma, DVT, s/p substance abuse; kidney stones, and hiatal hernia, who presents with increasing SOB x 4 days. Denies fever, chills, increased cough. Reports that he just hasn't been able to breathe the same since his intubation in January. Denies chest pain, nausea, vomiting. Pt also states his CPAP is not working properly. ER course was notable for: (1) WBC 12.1 (2) BNP 714 - Current Medication List Current Medications: Active Medications Acetaminophen (Tylenol -) 650 mg PO Q4H PRN PRN Reason: FEVER OR PAIN Last Admin: 05/01/16 21:15 Dose: 650 mg Albuterol/Ipratropium (Duoneb -) 1 amp NEB Q6H PRN PRN Reason: SHORTNESS OF BREATH Albuterol/Ipratropium (Duoneb -) 1 amp NEB Q6H [facility] Last Admin: 05/04/16 11:24 Dose: 1 amp Amlodipine Besylate (Norvasc -) 5 mg PO DAILY [facility] Last Admin: 05/04/16 09:30 Dose: 5 mg Atorvastatin Calcium (Lipitor -) 10 mg PO HS [facility] Last Admin: 05/03/16 22:10 Dose: 10 mg Chlorhexidine Gluconate (Hibiclens For Decolonization -) 1 applic TP HS [facility] Last Admin: 05/03/16 22:11 Dose: 1 applic Furosemide (Lasix -) 60 mg PO BID [facility] Last Admin: 05/04/16 09:29 Dose: 60 mg Propofol (Diprivan -) 100 mls @ 9.946 mls/hr IVPB TITR PALLAVI; 10 MCG/KG/MIN PRN Reason: Protocol Last Admin: 05/04/16 10:09 Dose: 49.728 mls/hr Fentanyl 500 mcg/ Dextrose 100 mls @ 5 mls/hr IJ TITR PALLAVI PRN Reason: 25 MCG/HR Last Admin: 05/04/16 09:55 Dose: 12 mls/hr Methimazole (Tapazole -) 10 mg PO DAILY [facility] Last Admin: 05/04/16 09:41 Dose: 10 mg Methylprednisolone Sodium Succinate (Solu-Medrol -) 40 mg IVPB BID [facility] Last Admin: 05/04/16 09:31 Dose: 40 mg Multivitamins (Total B With C -) 1 each PO DAILY [facility] Last Admin: 05/04/16 09:31 Dose: 1 each Multivitamins/Minerals/Vitamin C (Tab-A-Vit -) 1 tab PO DAILY [facility] Last Admin: 05/04/16 09:31 Dose: 1 tab Mupirocin (Bactroban Ointment (For Decolonization) -) 1 applic NS BID [facility] Stop: 05/06/16 21:59 Last Admin: 05/04/16 09:30 Dose: 1 applic Pantoprazole Sodium (Protonix -) 20 mg PO DAILY [facility] Last Admin: 05/04/16 09:30 Dose: 20 mg Potassium Chloride (K-Dur -) 20 meq PO Q2D@1000 [facility] Last Admin: 05/03/16 09:26 Dose: 20 meq Rivaroxaban (Xarelto -) 20 mg PO DAILY [facility] Last Admin: 05/04/16 09:31 Dose: 20 mg Fluticasone/Salmeterol (Advair 100mcg/50mcg -) 1 puff IH BID [facility] Last Admin: 05/03/16 22:11 Dose: Not Given Timolol Maleate (Timoptic 0.5%) 1 drop OU DAILY [facility] Last Admin: 05/04/16 09:41 Dose: 1 drop - Objective Vital Signs: Vital Signs Temperature 99.4 F 05/04/16 14:00 Pulse Rate 93 H 05/04/16 14:00 Respiratory Rate 18 05/04/16 14:09 Blood Pressure 99/61 05/04/16 14:00 O2 Sat by Pulse Oximetry (%) 100 05/04/16 10:17 Eyes: Yes: WNL, Conjunctiva Clear, EOM Intact HENT: Yes: WNL, Atraumatic, Normocephalic Neck: Yes: WNL, Supple, Trachea Midline Cardiovascular: Yes: WNL, Regular Rate and Rhythm Respiratory: Yes: Diminished, Intubated, Mechanically Ventilated Gastrointestinal: Yes: WNL, Normal Bowel Sounds Genitourinary: Yes: WNL Musculoskeletal: Yes: WNL Extremities: Yes: WNL Edema: Yes Integumentary: Yes: WNL Neurological: Yes: WNL, Alert, Oriented ...Motor Strength: WNL Psychiatric: Yes: WNL Labs: CBC, BMP 05/04/16 05:05 05/04/16 05:05 INR, PTT INR 2.68 (0.82-1.09) H D 05/01/16 16:20 Assessment/Plan - Problems (1) Edema Code(s): R60.9 - EDEMA, UNSPECIFIED (2) Acute on chronic diastolic CHF (congestive heart failure) Assessment/Plan: On amlodipine and furosemide. TNI < 0.02 x 2. F/u BUN/Cr, elecrolytes, daily weight, Is and Os. F/u ABG (lethargic; Bipap restarted). Code(s): I50.33 - ACUTE ON CHRONIC DIASTOLIC (CONGESTIVE) HEART FAILURE (3) COPD exacerbation Code(s): J44.1 - CHRONIC OBSTRUCTIVE PULMONARY DISEASE W (ACUTE) EXACERBATION (4) Depression Code(s): F32.9 - MAJOR DEPRESSIVE DISORDER, SINGLE EPISODE, UNSPECIFIED (5) Diastolic CHF Code(s): I50.30 - UNSPECIFIED DIASTOLIC (CONGESTIVE) HEART FAILURE Qualifiers : Congestive heart failure chronicity: acute on chronic Qualified Code(s) : I50.33 - Acute on chronic diastolic (congestive) heart failure (6) Dvt femoral (deep venous thrombosis) Assessment/Plan: Continue rivaroxaban. Code(s): I82.419 - ACUTE EMBOLISM AND THROMBOSIS OF UNSPECIFIED FEMORAL VEIN (7) HTN (hypertension) Assessment/Plan: Restart antihypertensives.(presently on furosemide and amlodipine). Code(s): I10 - ESSENTIAL (PRIMARY) HYPERTENSION (8) Moderate to severe pulmonary hypertension Code(s): I27.2 - OTHER SECONDARY PULMONARY HYPERTENSION (9) Hypercapnic respiratory failure Assessment/Plan: on BiPAP, would remains lethargic. F/u ABG; may require intubation. Code(s): J96.92 - RESPIRATORY FAILURE, UNSPECIFIED WITH HYPERCAPNIA Qualifiers : Chronicity: acute on chronic Qualified Code(s): J96.22 - Acute and chronic respiratory failure with hypercapnia (10) Morbid obesity Code(s): E66.01 - MORBID (SEVERE) OBESITY DUE TO EXCESS CALORIES Qualifiers: Obesity type: due to excess calories Qualified Code(s): E66.01 - Morbid (severe) obesity due to excess calories (11) Obstructive apnea Code(s): G47.33 - OBSTRUCTIVE SLEEP APNEA (ADULT) (PEDIATRIC) cctime 35 min
[2016-05-04] MEDS ORDERED: PROPOFOL 100 ML ONE (17:59)
[2016-05-04] MEDS ORDERED: PROPOFOL 300 ML ONE (21:08)
[2016-05-04] MEDS: ATORVASTATIN CA 10 MG TABLET (FP) PO SCH (21:27)
[2016-05-04] MEDS: CHLORHEXIDINE GLUCONATE 4% CLEANSER FOR DECOLONIZATION TP SCH (21:28)
[2016-05-05] MEDS: ALBUTEROL SO4 2.5/IPRATROPIUM 0.5 INH SOL 3 ML VIAL.NEB. NEB SCH ×5 (00:09→23:56)
[2016-05-05] MEDS: PROPOFOL 100 ML IVPB SCH ×5 (00:30→09:20)
[2016-05-05] MEDS: FENTANYL INJECTION 500 MCG in DEXTROSE 5%-WATER - 90 ML IJ SCH ×2 (02:00→06:00)
[2016-05-05 07:35] LABS: ARTERIAL BLD GAS O2 SATURATION 96.4 % (90-98.9); ARTERIAL BLOOD GAS BASE EXCESS 10.1 meq/l (-2-2); ARTERIAL BLOOD GAS HCO3 35.5 meq/L (22-26); ARTERIAL BLOOD GAS PO2 84.5 mmHg (80-100); ARTERIAL BLOOD GAS pH 7.45 (7.35-7.45)
[2016-05-05 07:36] LABS: ALLENS TEST POSITIVE; ART PUNCT SITE RIGHT RADIAL; LPM/O2% 35%; MECH. VENT. YES; PT. ON O2? YES; TYPE OF O2 MECH VENT; VENT RATE 12; VT/PRESS 475
[2016-05-05 08:59] LABS: CALCIUM 8.2 mg/dL (8.5-10.1); CREATININE 0.7 mg/dL (0.7-1.3); MAGNESIUM 2.2 mg/dL (1.8-2.4); PHOSPHOROUS 3.5 mg/dL (2.5-4.9)
[2016-05-05 09:08] LABS: BASOPHIL 0.3 % (0-2.0); EOSINOPHIL 0.1 % (0-4.5); MCH 29.3 pg (25.7-33.7); MCHC 32.4 g/dl (32.0-35.9); MEAN CELL VOLUME 90.3 fl (80-96); MEAN PLT VOLUME 7.9 fl (7.5-11.1); NEUTROPHILS 82.2 % (42.8-82.8); PLATELET COUNT 225 K/MM3 (134-434); RDW 16.3 % (11.9-15.9); WHITE BLOOD COUNT 8.7 K/mm3 (4.0-10.0)
[2016-05-05] MEDS: FUROSEMIDE 40 MG TABLET (FP) PO SCH ×2 (09:22→18:14)
[2016-05-05] MEDS: amLODIPine BESYLATE 5 MG TABLET (FP) PO SCH (09:23)
[2016-05-05] MEDS: PANTOPRAZOLE 20 MG TABLET (FP) PO SCH (09:24)
[2016-05-05] MEDS: MULTIVITAMINS (DAILY MVI) TABLET (FP) PO SCH (09:24)
[2016-05-05] MEDS: VITAMIN B COMPLEX W/C COMBO TABLET (FP) PO SCH (09:26)
[2016-05-05] MEDS: RIVAROXABAN 20 MG TABLET PO SCH (09:27)
[2016-05-05] MEDS ORDERED: PT OWN MED DRAWER 7, Y5N ONE ×2 (09:29→18:11)
[2016-05-05] MEDS: METHIMAZOLE 10 MG TABLET (FP) PO SCH (09:30)
[2016-05-05] MEDS: methylPREDNISolone NA SUCC 40 MG/1 ML VIAL IVPB SCH ×2 (09:30→21:29)
[2016-05-05] MEDS: FLUTICASONE/SALMETEROL 100 MCG/50 MCG DISKUS IH SCH ×2 (09:30→21:30)
[2016-05-05] MEDS: TIMOLOL 0.5% OPHTHALMIC SOL 5 ML BOTTLE OU SCH (09:52)
[2016-05-05] MEDS ORDERED: LACTULOSE 20 GM/30 ML UDC (FOR ORAL USE ONLY) PO ONE (09:56)
--- NOTE | 2016-05-05 11:17 | PN ---
Teaching Attending Note Name of Resident: Franky Lock ATTENDING PHYSICIAN STATEMENT I saw and evaluated the patient. I reviewed the resident's note and discussed the case with the resident. I agree with the resident's findings and plan as documented. SUBJECTIVE: Pt seen and examined in the ICU. Remains intubated, awake, alert, following commands. Tolerating CPAP/PS trials. OBJECTIVE: Last Vital Signs Temp Pulse Resp BP Pulse Ox 98.5 F 96 H 14 129/82 98 05/05/16 08:00 05/05/16 10:45 05/05/16 10:00 05/05/16 10:00 05/05/16 10:45 Intake & Output 05/02/16 05/03/16 05/04/16 05/05/16 23:59 23:59 23:59 23:59 Intake Total 1750 2925 3336.4 1252.8 Output Total 4900 2600 4200 1200 Balance -3150 325 -863.6 52.8 Weight 365 lb 7 oz 355 lb 1 oz 355 lb 14.4 oz 352 lb 8 oz Gen: intubated, awake Heart: RRR Lung: decreased breath sounds at the bases Abd: soft, nontender, obese Ext: no edema CBC, BMP 05/05/16 08:00 05/05/16 08:00 Active Medications Acetaminophen (Tylenol -) 650 mg PO Q4H PRN PRN Reason: FEVER OR PAIN Last Admin: 05/01/16 21:15 Dose: 650 mg Albuterol/Ipratropium (Duoneb -) 1 amp NEB Q6H PRN PRN Reason: SHORTNESS OF BREATH Albuterol/Ipratropium (Duoneb -) 1 amp NEB Q6H [facility] Last Admin: 05/05/16 11:07 Dose: 1 amp Amlodipine Besylate (Norvasc -) 5 mg PO DAILY [facility] Last Admin: 05/05/16 09:23 Dose: 5 mg Atorvastatin Calcium (Lipitor -) 10 mg PO [facility] Last Admin: 05/04/16 21:27 Dose: 10 mg Chlorhexidine Gluconate (Hibiclens For Decolonization -) 1 applic TP HS [facility] Last Admin: 05/04/16 21:28 Dose: 1 applic Furosemide (Lasix -) 60 mg PO BID [facility] Last Admin: 05/05/16 09:22 Dose: 60 mg Methimazole (Tapazole -) 10 mg PO DAILY [facility] Last Admin: 05/05/16 09:30 Dose: 10 mg Methylprednisolone Sodium Succinate (Solu-Medrol -) 40 mg IVPB BID [facility] Last Admin: 05/05/16 09:30 Dose: 40 mg Multivitamins (Total B With C -) 1 each PO DAILY [facility] Last Admin: 05/05/16 09:26 Dose: 1 each Multivitamins/Minerals/Vitamin C (Tab-A-Vit -) 1 tab PO DAILY [facility] Last Admin: 05/05/16 09:24 Dose: 1 tab Mupirocin (Bactroban Ointment (For Decolonization) -) 1 applic NS BID [facility] Stop: 05/06/16 21:59 Last Admin: 05/04/16 21:28 Dose: 1 applic Pantoprazole Sodium (Protonix -) 20 mg PO DAILY [facility] Last Admin: 05/05/16 09:24 Dose: 20 mg Rivaroxaban (Xarelto -) 20 mg PO DAILY [facility] Last Admin: 05/05/16 09:27 Dose: 20 mg Fluticasone/Salmeterol (Advair 100mcg/50mcg -) 1 puff IH BID [facility] Last Admin: 05/05/16 09:30 Dose: Not Given Timolol Maleate (Timoptic 0.5%) 1 drop OU DAILY [facility] Last Admin: 05/05/16 09:52 Dose: 1 drop ASSESSMENT AND PLAN: Acute on Chronic Hypoxic and Hypercapneic Respiratory Failure r/o Acute COPD Exacerbation r/o Acute LV Diastolic Dysfunction Morbid Obesity BONY/OHS h/o DVT - wean to extubate - monitoring off antibiotics - continue empiric medrol - inhaled bronchodilators - o2 to keep SpO2 88-92% to avoid worsening V/Q mismatch - continue lasix - monitor urine output, creatinine - continue anticoagulation - DVT/GI prophylaxis
--- NOTE | 2016-05-05 11:36 | PN ---
Progress Note (short form) - Note Progress Note: stable alert Vital Signs Period Temp Pulse Resp BP Sys/Woodall Pulse Ox Last 24 Hr 98.4 F-99.8 F 80-96 12-18 93-129/53-82 95-100 cor-rrr llungs scattered rhonchi abd soft,nt ext no edema CBC, BMP 05/05/16 08:00 05/05/16 08:00 Microbiology 05/02/16 16:00 Gram Stain - Final Sputum - Endotrachea Suction/Ventilator Sputum Culture - Final NORMAL RESPIRATORY DIANE 05/01/16 16:22 Blood Culture - Preliminary Blood - Peripheral Venous NO GROWTH OBTAINED AFTER 72 HOURS, INCUBATION TO CONTINUE FOR 2 DAYS. 05/01/16 16:22 Blood Culture - Preliminary Blood - Peripheral Venous NO GROWTH OBTAINED AFTER 72 HOURS, INCUBATION TO CONTINUE FOR 2 DAYS. 05/03/16 17:00 Respiratory Virus Panel - Preliminary Nasopharyngeal Swab 05/03/16 17:00 Legionella Antigen - Final Urine For Antigen Detection Streptococcus pneumoniae Antigen (M - Final 05/03/16 17:00 Influenza Types A,B Antigen (BOO) - Final Nasopharyngeal Swab - Final a/p acute on chronic respiratory failure [facility] morbid obesity continue to observe off antibiotics d/w Dr Banerjee
--- NOTE | 2016-05-05 11:56 | PN ---
Progress Note, Physician History of Present Illness: patient seen and examined intubated sedated no issues overnight - Current Medication List Current Medications: Active Medications Acetaminophen (Tylenol -) 650 mg PO Q4H PRN PRN Reason: FEVER OR PAIN Last Admin: 05/01/16 21:15 Dose: 650 mg Albuterol/Ipratropium (Duoneb -) 1 amp NEB Q6H PRN PRN Reason: SHORTNESS OF BREATH Albuterol/Ipratropium (Duoneb -) 1 amp NEB Q6H [facility] Last Admin: 05/05/16 11:07 Dose: 1 amp Amlodipine Besylate (Norvasc -) 5 mg PO DAILY [facility] Last Admin: 05/05/16 09:23 Dose: 5 mg Atorvastatin Calcium (Lipitor -) 10 mg PO HS [facility] Last Admin: 05/04/16 21:27 Dose: 10 mg Chlorhexidine Gluconate (Hibiclens For Decolonization -) 1 applic TP HS [facility] Last Admin: 05/04/16 21:28 Dose: 1 applic Furosemide (Lasix -) 60 mg PO BID [facility] Last Admin: 05/05/16 09:22 Dose: 60 mg Methimazole (Tapazole -) 10 mg PO DAILY [facility] Last Admin: 05/05/16 09:30 Dose: 10 mg Methylprednisolone Sodium Succinate (Solu-Medrol -) 40 mg IVPB BID [facility] Last Admin: 05/05/16 09:30 Dose: 40 mg Multivitamins (Total B With C -) 1 each PO DAILY [facility] Last Admin: 05/05/16 09:26 Dose: 1 each Multivitamins/Minerals/Vitamin C (Tab-A-Vit -) 1 tab PO DAILY [facility] Last Admin: 05/05/16 09:24 Dose: 1 tab Mupirocin (Bactroban Ointment (For Decolonization) -) 1 applic NS BID [facility] Stop: 05/06/16 21:59 Last Admin: 05/04/16 21:28 Dose: 1 applic Pantoprazole Sodium (Protonix -) 20 mg PO DAILY [facility] Last Admin: 05/05/16 09:24 Dose: 20 mg Rivaroxaban (Xarelto -) 20 mg PO DAILY [facility] Last Admin: 05/05/16 09:27 Dose: 20 mg Fluticasone/Salmeterol (Advair 100mcg/50mcg -) 1 puff IH BID [facility] Last Admin: 05/05/16 09:30 Dose: Not Given Timolol Maleate (Timoptic 0.5%) 1 drop OU DAILY [facility] Last Admin: 05/05/16 09:52 Dose: 1 drop - Objective Vital Signs: Vital Signs Temperature 98.5 F 05/05/16 08:00 Pulse Rate 96 H 05/05/16 10:45 Respiratory Rate 14 05/05/16 10:00 Blood Pressure 129/82 05/05/16 10:00 O2 Sat by Pulse Oximetry (%) 98 05/05/16 10:45 Constitutional: Yes: Obese Eyes: Yes: EOM Intact Neck: Yes: Supple Cardiovascular: Yes: Regular Rate and Rhythm Respiratory: Yes: Diminished, Intubated, Mechanically Ventilated Gastrointestinal: Yes: Soft, Abdomen, Obese Edema: Yes (non pitting ) Labs: CBC, BMP 05/05/16 08:00 05/05/16 08:00 INR, PTT INR 2.68 (0.82-1.09) H D 05/01/16 16:20 - ....Imaging Chest X-ray: Report Reviewed, Image Reviewed Assessment/Plan 45M with multiple medical problems presents with acute on chronic hypoxic hypercapneic resp failure requriting intubation Acute of chronic hypercapneic hypoxic resp failure hold sedation and Extubate Off ABx unlikely to be PNA ID consult appreciated solumedrol Lasix Mary Daniels CXR in AM HTN: Norvasc HLD: continue statin history of DVT on xarelto-will continue hyperthyroidism continue methimazole BONY/OHS will need outpt sleep studies BiPAP PRN PPx: Xarelto Protonix PT consult FEN: off IVF no electrolyte issues off TF for extubation will start diet after extubated
[2016-05-05] MEDS: MUPIROCIN 2% TOPICAL OINTMENT FOR DECOLONIZATION NS SCH ×2 (12:27→21:30)
--- NOTE | 2016-05-05 13:27 | PN ---
Progress Note, Physician Chief Complaint: Pt is extubated, A&Ox3;. History of Present Illness: This is a 45 year old black male with a past medical history of morbid obesity, BONY, COPD-emphysema, diastolic CHF, anemia, UGI bleed, HTN, hyperthyroid, gluacoma, DVT, s/p substance abuse; kidney stones, and hiatal hernia, who presents with increasing SOB x 4 days. Denies fever, chills, increased cough. Reports that he just hasn't been able to breathe the same since his intubation in January. Denies chest pain, nausea, vomiting. Pt also states his CPAP is not working properly. ER course was notable for: (1) WBC 12.1 (2) BNP 714 - Current Medication List Current Medications: Active Medications Acetaminophen (Tylenol -) 650 mg PO Q4H PRN PRN Reason: FEVER OR PAIN Last Admin: 05/01/16 21:15 Dose: 650 mg Albuterol/Ipratropium (Duoneb -) 1 amp NEB Q6H PRN PRN Reason: SHORTNESS OF BREATH Albuterol/Ipratropium (Duoneb -) 1 amp NEB Q6H [facility] Last Admin: 05/05/16 11:07 Dose: 1 amp Amlodipine Besylate (Norvasc -) 5 mg PO DAILY [facility] Last Admin: 05/05/16 09:23 Dose: 5 mg Atorvastatin Calcium (Lipitor -) 10 mg PO HS [facility] Last Admin: 05/04/16 21:27 Dose: 10 mg Chlorhexidine Gluconate (Hibiclens For Decolonization -) 1 applic TP HS [facility] Last Admin: 05/04/16 21:28 Dose: 1 applic Furosemide (Lasix -) 60 mg PO BID [facility] Last Admin: 05/05/16 09:22 Dose: 60 mg Methimazole (Tapazole -) 10 mg PO DAILY [facility] Last Admin: 05/05/16 09:30 Dose: 10 mg Methylprednisolone Sodium Succinate (Solu-Medrol -) 40 mg IVPB BID [facility] Last Admin: 05/05/16 09:30 Dose: 40 mg Multivitamins (Total B With C -) 1 each PO DAILY [facility] Last Admin: 05/05/16 09:26 Dose: 1 each Multivitamins/Minerals/Vitamin C (Tab-A-Vit -) 1 tab PO DAILY [facility] Last Admin: 05/05/16 09:24 Dose: 1 tab Mupirocin (Bactroban Ointment (For Decolonization) -) 1 applic NS BID [facility] Stop: 05/06/16 21:59 Last Admin: 05/05/16 12:27 Dose: 1 applic Pantoprazole Sodium (Protonix -) 20 mg PO DAILY [facility] Last Admin: 05/05/16 09:24 Dose: 20 mg Rivaroxaban (Xarelto -) 20 mg PO DAILY [facility] Last Admin: 05/05/16 09:27 Dose: 20 mg Fluticasone/Salmeterol (Advair 100mcg/50mcg -) 1 puff IH BID [facility] Last Admin: 05/05/16 09:30 Dose: Not Given Timolol Maleate (Timoptic 0.5%) 1 drop OU DAILY [facility] Last Admin: 05/05/16 09:52 Dose: 1 drop - Objective Vital Signs: Vital Signs Temperature 99.3 F 05/05/16 12:00 Pulse Rate 88 05/05/16 12:00 Respiratory Rate 18 05/05/16 12:00 Blood Pressure 147/93 05/05/16 12:00 O2 Sat by Pulse Oximetry (%) 98 05/05/16 10:45 Constitutional: Yes: Calm, Obese Eyes: Yes: WNL HENT: Yes: WNL Neck: Yes: WNL Cardiovascular: Yes: Regular Rate and Rhythm Respiratory: Yes: Diminished Gastrointestinal: Yes: Soft, Abdomen, Obese ...Rectal Exam: Yes: Deferred Genitourinary: No: Anuria Breast(s): Yes: WNL Musculoskeletal: Yes: Joint Swelling, Muscle Weakness Extremities: Yes: Cool Edema: Yes Edema: LLE: 1+, RLE: 1+ Peripheral Pulses WNL: No Peripheral Pulses: Left Doralis Pedis: 1+, Right Dorsalis Pedis: 1+ Integumentary: Yes: Venous Stasis Changes Neurological: Yes: Alert, Oriented, Weakness Psychiatric: Yes: Alert, Oriented, Other (addictive personality) Labs: CBC, BMP 05/05/16 08:00 05/05/16 08:00 INR, PTT INR 2.68 (0.82-1.09) H D 05/01/16 16:20 Abnormal Lab Results 01/17/17 01/17/17 01/17/17 07:35 08:00 08:00 RDW 16.3 H Lymphocytes % 6.4 L D Monocytes % 11.0 H ABG pCO2 at Pt Temp 51.9 H ABG HCO3 35.5 H ABG Base Excess 10.1 H Sodium 133 L Chloride 92 L Carbon Dioxide 34 H Anion Gap 7 L Random Glucose 171 H Calcium 8.2 L - ....Imaging Chest X-ray: Image Reviewed (continued Lt basal infiltrate) Problem List - Problems (1) Edema Code(s): R60.9 - EDEMA, UNSPECIFIED (2) Acute on chronic diastolic CHF (congestive heart failure) Assessment/Plan: On amlodipine and furosemide (now 60 mg IVP bid). TNI < 0.02 x 2. F/u BUN/Cr, elecrolytes, daily weight, Is and Os. Code(s): I50.33 - ACUTE ON CHRONIC DIASTOLIC (CONGESTIVE) HEART FAILURE (3) COPD exacerbation Code(s): J44.1 - CHRONIC OBSTRUCTIVE PULMONARY DISEASE W (ACUTE) EXACERBATION (4) Depression Code(s): F32.9 - MAJOR DEPRESSIVE DISORDER, SINGLE EPISODE, UNSPECIFIED (5) Dvt femoral (deep venous thrombosis) Assessment/Plan: Continue rivaroxaban. Code(s): I82.419 - ACUTE EMBOLISM AND THROMBOSIS OF UNSPECIFIED FEMORAL VEIN (6) HTN (hypertension) Assessment/Plan: Continue antihypertensives.(presently on furosemide and amlodipine). Code(s): I10 - ESSENTIAL (PRIMARY) HYPERTENSION (7) Moderate to severe pulmonary hypertension Code(s): I27.2 - OTHER SECONDARY PULMONARY HYPERTENSION (8) Hypercapnic respiratory failure Assessment/Plan: Now extubated. Steroids, antibiotics, O2, and bronchodilators per pulmonology. Code(s): J96.92 - RESPIRATORY FAILURE, UNSPECIFIED WITH HYPERCAPNIA Qualifiers : Chronicity: acute on chronic Qualified Code(s): J96.22 - Acute and chronic respiratory failure with hypercapnia (9) Morbid obesity Code(s): E66.01 - MORBID (SEVERE) OBESITY DUE TO EXCESS CALORIES Qualifiers: Obesity type: due to excess calories Qualified Code(s): E66.01 - Morbid (severe) obesity due to excess calories (10) Obstructive apnea Assessment/Plan: CPAP per iron guardrail installer. Code(s): G47.33 - OBSTRUCTIVE SLEEP APNEA (ADULT) (PEDIATRIC) (11) Glaucoma Assessment/Plan: on Timoptic. Code(s): H40.9 - UNSPECIFIED GLAUCOMA Assessment/Plan CC time: 35 minutes.
--- NOTE | 2016-05-05 15:15 | PN ---
Physical Exam: SUBJECTIVE: Patient seen and examined. He is intubated and sedated. He doesn't have any complaints. He is Saturating well but still on Peep 10. OBJECTIVE: Vital Signs Period Temp Pulse Resp BP Sys/Woodall Pulse Ox Last 24 Hr 98.4 F-99.8 F 80-96 12-18 93-147/53-93 95-100 GENERAL: The patient is awake, sedated and intubated. HEAD: Normal with no signs of trauma. EYES: PERRL, extraocular movements intact, sclera anicteric, conjunctiva clear. No ptosis. ENT: Ears normal, nares patent, oropharynx clear without exudates, moist mucous membranes. Intubated. NECK: Trachea midline, full range of motion, supple. LUNGS: Breath sounds equal, diminished breath sounds bilaterally, no wheezes, no crackles, no accessory muscle use. HEART: Regular rate and rhythm, S1, S2 without murmur, rub or gallop. ABDOMEN: Obese, soft, nontender, nondistended, normoactive bowel sounds, no guarding, no rebound, no hepatosplenomegaly, no masses. EXTREMITIES: 2+ pulses, warm, well-perfused, 1+ peripheral edema, venous stasis changes in lower extremities B/l. NEUROLOGICAL: Cranial nerves II through XII grossly intact. Normal speech, gait not observed. PSYCH: Sedated, minimal contact. SKIN: Warm, dry, normal turgor, no rashes or lesions noted [place]ilera: Dark brown urine. Laboratory Results - last 24 hr 05/05/16 05/05/16 05/05/16 07:35 08:00 08:00 WBC 8.7 RBC 4.26 Hgb 12.5 Hct 38.5 MCV 90.3 MCHC 32.4 RDW 16.3 H Plt Count 225 MPV 7.9 Neutrophils % 82.2 Lymphocytes % 6.4 L D Monocytes % 11.0 H Eosinophils % 0.1 D Basophils % 0.3 Puncture Site Right radial ABG pH 7.45 ABG pCO2 at Pt Temp 51.9 H ABG pO2 at Pt Temp 84.5 ABG HCO3 35.5 H ABG O2 Sat (Measured) 96.4 ABG O2 Content 17.1 ABG Base Excess 10.1 H Orlin Test Positive O2 Delivery Device Mech vent Oxygen Flow Rate 35% Vent Mode A/c Vent Rate 12 Mechanical Rate Yes PEEP 8.0 Pressure Support Vent 475 Sodium 133 L Potassium 4.0 D Chloride 92 L Carbon Dioxide 34 H Anion Gap 7 L BUN 11 Creatinine 0.7 D Random Glucose 171 H Calcium 8.2 L Phosphorus 3.5 D Magnesium 2.2 Active Medications Generic Name Dose Route Start Last Admin Trade Name Freq PRN Reason Stop Dose Admin Acetaminophen 650 mg 05/01/16 20:36 05/01/16 21:15 Tylenol - PO 650 mg Q4H PRN Administration FEVER OR PAIN Albuterol/Ipratropium 1 amp 05/01/16 20:19 Duoneb - NEB Q6H PRN SHORTNESS OF BREATH Albuterol/Ipratropium 1 amp 05/02/16 11:15 05/05/16 11:07 Duoneb - NEB 1 amp Q6H [facility] Administration Amlodipine Besylate 5 mg 05/02/16 11:15 05/05/16 09:23 Norvasc - PO 5 mg DAILY [facility] Administration Atorvastatin Calcium 10 mg 05/01/16 22:00 05/04/16 21:27 Lipitor - PO 10 mg HS [facility] Administration Chlorhexidine Gluconate 1 applic 05/01/16 22:00 05/04/16 21:28 Hibiclens For Decolonization - TP 1 applic HS [facility] Administration Furosemide 60 mg 05/03/16 10:00 05/05/16 09:22 Lasix - PO 60 mg BID [facility] Administration Methimazole 10 mg 05/02/16 10:00 05/05/16 09:30 Tapazole - PO 10 mg DAILY [facility] Administration Methylprednisolone Sodium Succinate 40 mg 05/04/16 10:00 05/05/16 09:30 Solu-Medrol - IVPB 40 mg BID [facility] Administration Multivitamins 1 each 05/02/16 10:00 05/05/16 09:26 Total B With C - PO 1 each DAILY [facility] Administration Multivitamins/Minerals/Vitamin C 1 tab 05/02/16 10:00 05/05/16 09:24 Tab-A-Vit - PO 1 tab DAILY [facility] Administration Mupirocin 1 applic 05/01/16 22:00 05/05/16 12:27 Bactroban Ointment (For Decolonization) - NS 05/06/16 21:59 1 applic BID [facility] Administration Pantoprazole Sodium 20 mg 05/02/16 10:00 05/05/16 09:24 Protonix - PO 20 mg DAILY [facility] Administration Rivaroxaban 20 mg 05/02/16 10:00 05/05/16 09:27 Xarelto - PO 20 mg DAILY [facility] Administration Fluticasone/Salmeterol 1 puff 05/02/16 11:00 05/05/16 09:30 Advair 100mcg/50mcg - IH Not Given BID [facility] Timolol Maleate 1 drop 05/02/16 10:00 05/05/16 09:52 Timoptic 0.5% OU 1 drop DAILY [facility] Administration ASSESSMENT/PLAN: 45yM with morbid obesity, BONY, COPD-emphysema, diastolic CHF, anemia, UGI bleed , HTN, hyperthyroid, gluacoma, DVT, kidney stones and hiatal hernia, recent hospitalization for CIOPD exacerbation, intubated presents with SOB x 4 days. He is being admitted for acute on chronic respiratory failure due to COPD exacerbation. He is admitted to ICU. acute on chronic respiratory failure due to COPD exacerbation: -etubated today -will taper steroids tomorrow -COPD exac. probably due to upper respiratory infection, Influenza antigen negative -Pneumonia r/o at this moment -duonebs standing and PRN -continue Medrol Hypertension: -Norvasc 5 mg Daily -the pt was not on any hypertensive meds in the past diastolic CHF: -cont home Lasix 60 mg BID -no acute exacerbation now -negative I&O in past 24 hrs -last ECHO in 2015 was nl, nl EF Hyperlipidemia - cont home Lipitor chronic pain - cont home Tramadol PRN only DVT PPX: - continue Xarelto F/E/N; No/No changes/Low sodium diet Disposition: ICU. Problem List - Problems (1) Hypercapnic respiratory failure Code(s): J96.92 - RESPIRATORY FAILURE, UNSPECIFIED WITH HYPERCAPNIA Qualifiers : Chronicity: acute on chronic Qualified Code(s): J96.22 - Acute and chronic respiratory failure with hypercapnia (2) Hypoxemia Code(s): R09.02 - HYPOXEMIA (3) Morbid obesity Code(s): E66.01 - MORBID (SEVERE) OBESITY DUE TO EXCESS CALORIES Qualifiers: Obesity type: due to excess calories Qualified Code(s): E66.01 - Morbid (severe) obesity due to excess calories (4) Obstructive apnea Code(s): G47.33 - OBSTRUCTIVE SLEEP APNEA (ADULT) (PEDIATRIC) Visit type - Emergency Visit Emergency Visit: Yes ED Registration Date: 05/01/16 Care time: The patient presented to the Emergency Department on the above date and was hospitalized for further evaluation of their emergent condition. - New Patient This patient is new to me today: No - Critical Care Critical Care patient: Yes Total Critical Care Time (in minutes): 40 Critical Care Statement: The care of this patient involved high complexity decision making to prevent further life threatening deterioration of the patient 's condition and/or to evalute & treat vital organ system(s) failure or risk of failure. - Discharge Referral Referred to [facility] No
--- NOTE | 2016-05-05 15:39 | PN ---
Teaching Attending Note Name of Resident: Brooklynn Roy ATTENDING PHYSICIAN STATEMENT I saw and evaluated the patient. I reviewed the resident's note and discussed the case with the resident. I agree with the resident's findings and plan as documented. SUBJECTIVE: Seen at around 9:30 am . Intubated at that time communicate VIa writing . Denies any pain. OBJECTIVE: NAD,inrubated , awake , responsive HEENT: ET tube in CV: RRR, no MRG Lungs:clear lungs anteriorly . no wheezes, decreased breath sounds at bases laterally Ext : thick skin on Legs , pitting edema, chronic skin changes ASSESSMENT AND PLAN: 45 y/o man with h/o morbid obesity, BONY, COPD-emphysema, diastolic CHF, anemia , UGI bleed, HTN, hyperthyroid, gluacoma, DVT, kidney stones and hiatal hernia , recent intubation due to acute resp failure , who presented with SOb and was found to have acute on chronic resp failure due to copd exa. 1- Acute on chronic hypercapnic resp failure due to Acute COPD exacerbation. - extbated now . - will decrease steroids dosing starting tomorrow - Duo-NEbs and advair 2- H/o Diastolic CHF . chronic ,NOt in acute exacerbation. last echo in 2015 showed nL EF and LV size -cotn lasix 60 mg po BID , I&O, weight - appreciate cardiac Recs 3- H/o DVT : cont xarelto. 4- HTN: cont Norvasc 5- hypokalemia: resolved ICU level of care
[2016-05-05] MEDS: ATORVASTATIN CA 10 MG TABLET (FP) PO SCH (21:29)
[2016-05-05] MEDS: CHLORHEXIDINE GLUCONATE 4% CLEANSER FOR DECOLONIZATION TP SCH (21:30)
[2016-05-06] MEDS: FUROSEMIDE 40 MG TABLET (FP) PO SCH ×2 (05:49→17:33)
[2016-05-06 05:55] LABS: MCH 28.5 pg (25.7-33.7); MCHC 31.6 g/dl (32.0-35.9); MEAN CELL VOLUME 90.4 fl (80-96); MEAN PLT VOLUME 8.2 fl (7.5-11.1); PLATELET COUNT 264 K/MM3 (134-434); RDW 16.7 % (11.9-15.9); WHITE BLOOD COUNT 12.8 K/mm3 (4.0-10.0)
[2016-05-06 06:45] LABS: CALCIUM 8.6 mg/dL (8.5-10.1); CREATININE 0.7 mg/dL (0.7-1.3); MAGNESIUM 2.5 mg/dL (1.8-2.4); PHOSPHOROUS 4.7 mg/dL (2.5-4.9)
[2016-05-06] MEDS: ALBUTEROL SO4 2.5/IPRATROPIUM 0.5 INH SOL 3 ML VIAL.NEB. NEB SCH ×3 (07:04→17:16)
--- NOTE | 2016-05-06 07:08 | PN ---
Progress Note (short form) - Note Progress Note: ID Remains stable on BIPAP overnight Antibiotics stopped Selected Entries 05/03/16 05/03/16 18:00 19:22 Temperature 98.0 F Pulse Rate 90 Respiratory 12 Rate Blood Pressure 93/63 Fraction of 35 Inspired Oxygen (FIO2) Obese male in mild respiratory distress Lung Rhonchi bilaterally Cor S1 S2 RR distant Abd Soft obese nontender Ext LE Lymphedema Microbiology 05/03/16 17:00 Urine For Antigen Detection Legionella Antigen - Final 05/03/16 17:00 Urine For Antigen Detection Streptococcus pneumoniae Antigen (M - Final 05/03/16 17:00 Nasopharyngeal Swab Influenza Types A,B Antigen (BOO) - Final 05/03/16 17:00 Nasopharyngeal Swab - Final 05/02/16 16:00 Sputum - Endotrachea Suction/Ventilator Gram Stain - Final 05/02/16 16:00 Sputum - Endotrachea Suction/Ventilator Sputum Culture - Final NORMAL RESPIRATORY DIANE 05/03/16 17:00 Nasopharyngeal Swab Respiratory Virus Panel - Preliminary 05/01/16 20:17 Nasopharyngeal Swab Respiratory Virus (PCR) - Preliminary 05/01/16 16:22 Blood - Peripheral Venous Blood Culture - Preliminary NO GROWTH OBTAINED AFTER 96 HOURS, INCUBATION TO CONTINUE FOR 1 DAYS. 05/01/16 16:22 Blood - Peripheral Venous Blood Culture - Preliminary NO GROWTH OBTAINED AFTER 96 HOURS, INCUBATION TO CONTINUE FOR 1 DAYS. Laboratory Tests 05/06/16 05/06/16 05:05 05:05 WBC 12.8 H D Plt Count 264 BUN 13 Creatinine 0.7 Assessment Hypercapneic respiratory failure Plan No antibiotics Kindly recall if we can assist Anup GIANG
[2016-05-06 07:37] LABS: ALLENS TEST POSITIVE; ART PUNCT SITE RIGHT RADIAL; ARTERIAL BLD GAS O2 SATURATION 97.2 % (90-98.9); ARTERIAL BLOOD GAS BASE EXCESS 8.5 meq/l (-2-2); ARTERIAL BLOOD GAS HCO3 35.8 meq/L (22-26); ARTERIAL BLOOD GAS pH 7.37 (7.35-7.45); LPM/O2% 35%; MECH. VENT. BIPAP; PT. ON O2? YES; TYPE OF O2 BIPAP; VENT RATE 16; VT/PRESS 14/7
--- NOTE | 2016-05-06 08:44 | PN ---
Teaching Attending Note Name of Resident: Brooklynn Roy ATTENDING PHYSICIAN STATEMENT I saw and evaluated the patient. I reviewed the resident's note and discussed the case with the resident. I agree with the resident's findings and plan as documented. SUBJECTIVE: in ICU Patient is feeling better, able to speak in full sentences without being short of breath. OBJECTIVE: Vital Signs Temperature 97.5 F L 05/06/16 06:00 Pulse Rate 76 05/06/16 08:00 Respiratory Rate 20 05/06/16 08:00 Blood Pressure 122/73 05/06/16 08:00 O2 Sat by Pulse Oximetry (%) 98 05/06/16 07:45 GENERAL: The patient is awake, alert, and fully oriented, in no distress. with Morbid obesity HEAD: Normal with no signs of trauma. EYES: PERRL, extraocular movements intact, sclera anicteric, conjunctiva clear. ENT: Ears normal, oropharynx clear without exudates, moist mucous membranes. NECK: Trachea midline, full range of motion, supple. LUNGS: diminished breath sounds bilaterally, distant breath sounds. HEART: Regular rate and rhythm, S1, S2 without murmur, rub or gallop. ABDOMEN: Large , soft, nontender, nondistended, normoactive bowel sounds, no guarding, no rebound, no masses. EXTREMITIES: 2+ pulses, warm, 1+ edema B/L, venous stasis changes in lower extremities B/L. NEUROLOGICAL: Cranial nerves II through XII grossly intact. Slurred speech, gait not observed. PSYCH: Normal mood, normal affect. SKIN: Warm, dry, normal turgor, no rashes or lesions noted CBCD WBC 12.8 K/mm3 (4.0-10.0) H D 05/06/16 05:05 RBC 4.84 M/mm3 (4.00-5.60) 05/06/16 05:05 Hgb 13.8 GM/dL (11.7-16.9) D 05/06/16 05:05 Hct 43.8 % (35.4-49) 05/06/16 05:05 MCV 90.4 fl (80-96) 05/06/16 05:05 MCHC 31.6 g/dl (32.0-35.9) L 05/06/16 05:05 RDW 16.7 % (11.9-15.9) H 05/06/16 05:05 Plt Count 264 K/MM3 (134-434) 05/06/16 05:05 MPV 8.2 fl (7.5-11.1) 05/06/16 05:05 CMP Sodium 138 mmol/L (136-145) 05/06/16 05:05 Potassium 4.7 mmol/L (3.5-5.1) 05/06/16 05:05 Chloride 96 mmol/L (98-107) L 05/06/16 05:05 Carbon Dioxide 39 mmol/L (21-32) H 05/06/16 05:05 Anion Gap 3 (8-16) L 05/06/16 05:05 BUN 13 mg/dL (7-18) 05/06/16 05:05 Creatinine 0.7 mg/dL (0.7-1.3) 05/06/16 05:05 Creat Clearance w eGFR > 60 (>60) 05/02/16 05:20 Random Glucose 125 mg/dL (74-106) H D 05/06/16 05:05 Calcium 8.6 mg/dL (8.5-10.1) 05/06/16 05:05 Total Bilirubin 0.9 mg/dL (0.2-1.0) D 05/02/16 05:20 AST 18 U/L (15-37) 05/02/16 05:20 ALT 13 U/L (12-78) 05/02/16 05:20 Alkaline Phosphatase 113 U/L (45-117) 05/02/16 05:20 Total Protein 7.3 g/dl (6.4-8.2) 05/02/16 05:20 Albumin 3.5 g/dl (3.4-5.0) 05/02/16 05:20 CARDIAC ENZYMES Creatine Kinase 33 IU/L (39-308) L 05/01/16 22:30 Troponin I < 0.02 ng/ml (0.00-0.05) 05/01/16 22:30 Current Medications Generic Name Dose Route Start Last Admin Trade Name Freq PRN Reason Stop Dose Admin Acetaminophen 650 mg 05/01/16 20:36 05/01/16 21:15 Tylenol - PO 650 mg Q4H PRN Administration FEVER OR PAIN Albuterol/Ipratropium 1 amp 05/01/16 20:19 Duoneb - NEB Q6H PRN SHORTNESS OF BREATH Albuterol/Ipratropium 1 amp 05/02/16 11:15 05/06/16 07:04 Duoneb - NEB 1 amp Q6H PALLAVI Administration Amlodipine Besylate 5 mg 05/02/16 11:15 05/05/16 09:23 Norvasc - PO 5 mg DAILY PALLAVI Administration Atorvastatin Calcium 10 mg 05/01/16 22:00 05/05/16 21:29 Lipitor - PO 10 mg HS PALLAVI Administration Chlorhexidine Gluconate 1 applic 05/01/16 22:00 05/05/16 21:30 Hibiclens For Decolonization - TP 1 applic HS PALLAVI Administration Furosemide 60 mg 05/05/16 18:15 05/06/16 05:49 Lasix - PO 60 mg BIDLASIX PALLAVI Administration Methimazole 10 mg 05/02/16 10:00 05/05/16 09:30 Tapazole - PO 10 mg DAILY PALLAVI Administration Methylprednisolone Sodium Succinate 40 mg 05/04/16 10:00 05/05/16 21:29 Solu-Medrol - IVPB 40 mg BID APLLAVI Administration Multivitamins 1 each 05/02/16 10:00 05/05/16 09:26 Total B With C - PO 1 each DAILY PALLAVI Administration Multivitamins/Minerals/Vitamin C 1 tab 05/02/16 10:00 05/05/16 09:24 Tab-A-Vit - PO 1 tab DAILY PALLAVI Administration Mupirocin 1 applic 05/01/16 22:00 05/05/16 21:30 Bactroban Ointment (For Decolonization) - NS 05/06/16 21:59 1 applic BID PALLAVI Administration Pantoprazole Sodium 20 mg 05/02/16 10:00 05/05/16 09:24 Protonix - PO 20 mg DAILY PALLAVI Administration Rivaroxaban 20 mg 05/02/16 10:00 05/05/16 09:27 Xarelto - PO 20 mg DAILY PALLAVI Administration Fluticasone/Salmeterol 1 puff 05/02/16 11:00 05/05/16 21:30 Advair 100mcg/50mcg - IH 1 puff BID PALLAVI Administration Timolol Maleate 1 drop 05/02/16 10:00 05/05/16 09:52 Timoptic 0.5% OU 1 drop DAILY PALLAVI Administration Medication Instructions Recorded Albuterol Sulfate Inhaler - 2 inh PO Q4H 05/10/15 [Ventolin HFA Inhaler -] Arformoterol Tartrate [Brovana -] 1 neb NEB BID 05/10/15 Ergocalciferol [Drisdol -] 50,000 unit PO WEEKLY 05/10/15 Furosemide [Lasix -] 60 mg PO BID 05/10/15 Methimazole 10 mg PO DAILY 05/10/15 Pantoprazole Sodium [Protonix -] 20 mg PO DAILY 05/10/15 Rivaroxaban [Xarelto -] 20 mg PO DAILY 05/10/15 Vitamin B Complex 1 each PO DAILY 05/10/15 Timolol 0.5% [Timoptic 0.5%] 1 drop OU DAILY drops 05/15/15 Atorvastatin Ca [Lipitor] 10 mg PO DAILY 09/06/15 Multivitamin [Poly-Vitamin] 1 each PO DAILY 09/06/15 Potassium Chloride [K-Dur -] 20 meq PO Q2D@1000 tablet.er 09/12/15 Prednisone [Deltasone -] 10 mg PO DAILY #30 tablet 11/08/15 Tramadol HCl [Ultram -] 50 mg PO BID #60 tablet MDD 100 mg 11/08/15 ASSESSMENT AND PLAN: Patient is 45 y/o man with h/o morbid obesity, BONY, COPD-emphysema, diastolic CHF, anemia, UGI bleed, HTN, hyperthyroid, gluacoma, DVT, kidney stones and hiatal hernia , recent intubation due to acute resp failure , who presented with SOb and was found to have acute on chronic resp failure due to copd exa. # Acute on chronic hypercapnic respiratory failure due to Acute COPD exacerbation s/p intubation and extubation. continue Steroids IV 40mg Bid, Duo-NEbs and advair continue # H/o Diastolic CHF .stable ,last echo in 2015 showed nL EF and LV size , continue lasix 60 mg po BID , I&O, daily weight # HTN: cont Norvasc # hX OF hYPERTHYROIDISM continue Tapazole # Hx of HLP continue Lipitor # hypokalemia: resolved # H/o DVT : on Xarelto continue
[2016-05-06] MEDS: FLUTICASONE/SALMETEROL 100 MCG/50 MCG DISKUS IH SCH ×5 (10:16→21:37)
[2016-05-06] MEDS: amLODIPine BESYLATE 5 MG TABLET (FP) PO SCH (10:22)
[2016-05-06] MEDS: RIVAROXABAN 20 MG TABLET PO SCH (10:23)
[2016-05-06] MEDS: PANTOPRAZOLE 20 MG TABLET (FP) PO SCH (10:23)
[2016-05-06] MEDS: MULTIVITAMINS (DAILY MVI) TABLET (FP) PO SCH (10:24)
[2016-05-06] MEDS: VITAMIN B COMPLEX W/C COMBO TABLET (FP) PO SCH (10:24)
[2016-05-06] MEDS: MUPIROCIN 2% TOPICAL OINTMENT FOR DECOLONIZATION NS SCH (10:24)
[2016-05-06] MEDS: methylPREDNISolone NA SUCC 40 MG/1 ML VIAL IVPB SCH ×2 (10:24→21:35)
[2016-05-06] MEDS: METHIMAZOLE 10 MG TABLET (FP) PO SCH (10:25)
[2016-05-06] MEDS: TIMOLOL 0.5% OPHTHALMIC SOL 5 ML BOTTLE OU SCH (10:28)
--- NOTE | 2016-05-06 10:32 | PN ---
Progress Note, Physician History of Present Illness: This is a 45 year old black male with a past medical history of morbid obesity, BONY, COPD-emphysema, diastolic CHF, anemia, UGI bleed, HTN, hyperthyroid, gluacoma, DVT, s/p substance abuse; kidney stones, and hiatal hernia, who presents with increasing SOB x 4 days. Denies fever, chills, increased cough. Reports that he just hasn't been able to breathe the same since his intubation in January. Denies chest pain, nausea, vomiting. Pt also states his CPAP is not working properly. ER course was notable for: (1) WBC 12.1 (2) BNP 714 - Current Medication List Current Medications: Active Medications Acetaminophen (Tylenol -) 650 mg PO Q4H PRN PRN Reason: FEVER OR PAIN Last Admin: 05/01/16 21:15 Dose: 650 mg Albuterol/Ipratropium (Duoneb -) 1 amp NEB Q6H PRN PRN Reason: SHORTNESS OF BREATH Albuterol/Ipratropium (Duoneb -) [address] [facility] Last Admin: 05/06/16 07:04 Dose: 1 amp Amlodipine Besylate (Norvasc -) [address] [facility] Last Admin: 05/05/16 09:23 Dose: 5 mg Atorvastatin Calcium (Lipitor -) [address] [facility] Last Admin: 05/05/16 21:29 Dose: 10 mg Chlorhexidine Gluconate (Hibiclens For Decolonization -) [address] [facility] Last Admin: 05/05/16 21:30 Dose: 1 applic Furosemide (Lasix -) [address] [facility] Last Admin: 05/06/16 05:49 Dose: 60 mg Methimazole (Tapazole -) [address] [facility] Last Admin: 05/05/16 09:30 Dose: 10 mg Methylprednisolone Sodium Succinate (Solu-Medrol -) [address] [facility] Last Admin: 05/05/16 21:29 Dose: 40 mg Multivitamins (Total B With C -) [address] [facility] Last Admin: 05/05/16 09:26 Dose: 1 each Multivitamins/Minerals/Vitamin C (Tab-A-Vit -) [address] [facility] Last Admin: 05/05/16 09:24 Dose: 1 tab Mupirocin (Bactroban Ointment (For Decolonization) -) [address] [facility] Stop: 05/06/16 21:59 Last Admin: 05/05/16 21:30 Dose: 1 applic Pantoprazole Sodium (Protonix -) [address] [facility] Last Admin: 05/05/16 09:24 Dose: 20 mg Rivaroxaban (Xarelto -) [address] [facility] Last Admin: 05/05/16 09:27 Dose: 20 mg Fluticasone/Salmeterol (Advair 100mcg/50mcg -) [address] [facility] Last Admin: 05/05/16 21:30 Dose: 1 puff Timolol Maleate (Timoptic 0.5%) [address] [facility] Last Admin: 05/05/16 09:52 Dose: 1 drop - Objective Vital Signs: Vital Signs Temperature 98.6 F 05/06/16 10:00 Pulse Rate 75 05/06/16 10:00 Respiratory Rate 20 05/06/16 10:00 Blood Pressure 113/65 05/06/16 10:00 O2 Sat by Pulse Oximetry (%) 94 L 05/06/16 09:35 Eyes: Yes: WNL, Conjunctiva Clear, EOM Intact HENT: Yes: WNL, Atraumatic, Normocephalic Neck: Yes: WNL, Supple, Trachea Midline Cardiovascular: Yes: WNL, Regular Rate and Rhythm Respiratory: Yes: WNL, Regular, CTA Bilaterally Gastrointestinal: Yes: WNL, Normal Bowel Sounds Genitourinary: Yes: WNL Musculoskeletal: Yes: WNL Extremities: Yes: WNL Edema: Yes Edema: LLE: 1+, RLE: 1+ Integumentary: Yes: WNL Neurological: Yes: WNL, Alert, Oriented ...Motor Strength: WNL Psychiatric: Yes: WNL Labs: CBC, BMP 05/06/16 05:05 05/06/16 05:05 INR, PTT INR 2.68 (0.82-1.09) H D 05/01/16 16:20 Assessment/Plan - Problems (1) Edema Code(s): R60.9 - EDEMA, UNSPECIFIED (2) Acute on chronic diastolic CHF (congestive heart failure) Assessment/Plan: On amlodipine and furosemide (now 60 mg IVP bid). TNI < 0.02 x 2. F/u BUN/Cr, elecrolytes, daily weight, Is and Os. Code(s): I50.33 - ACUTE ON CHRONIC DIASTOLIC (CONGESTIVE) HEART FAILURE (3) COPD exacerbation Code(s): J44.1 - CHRONIC OBSTRUCTIVE PULMONARY DISEASE W (ACUTE) EXACERBATION (4) Depression Code(s): F32.9 - MAJOR DEPRESSIVE DISORDER, SINGLE EPISODE, UNSPECIFIED (5) Dvt femoral (deep venous thrombosis) Assessment/Plan: Continue rivaroxaban. Code(s): I82.419 - ACUTE EMBOLISM AND THROMBOSIS OF UNSPECIFIED FEMORAL VEIN (6) HTN (hypertension) Assessment/Plan: Continue antihypertensives.(presently on furosemide and amlodipine). Code(s): I10 - ESSENTIAL (PRIMARY) HYPERTENSION (7) Moderate to severe pulmonary hypertension Code(s): I27.2 - OTHER SECONDARY PULMONARY HYPERTENSION (8) Hypercapnic respiratory failure Assessment/Plan: Now extubated. Steroids, antibiotics, O2, and bronchodilators per pulmonology. Code(s): J96.92 - RESPIRATORY FAILURE, UNSPECIFIED WITH HYPERCAPNIA Qualifiers : Chronicity: acute on chronic Qualified Code(s): J96.22 - Acute and chronic respiratory failure with hypercapnia (9) Morbid obesity Code(s): E66.01 - MORBID (SEVERE) OBESITY DUE TO EXCESS CALORIES Qualifiers: Obesity type: due to excess calories Qualified Code(s): E66.01 - Morbid (severe) obesity due to excess calories (10) Obstructive apnea Assessment/Plan: CPAP per restaurant b[employer]. Code(s): G47.33 - OBSTRUCTIVE SLEEP APNEA (ADULT) (PEDIATRIC) (11) Glaucoma Assessment/Plan: on Timoptic. Code(s): H40.9 - UNSPECIFIED GLAUCOMA Assessment/Plan CC time: 35 minutes.
--- NOTE | 2016-05-06 10:50 | PN ---
Physical Exam: SUBJECTIVE: Patient seen and examined in AM. He doesn't have any complaints. He hasn't noticed any improvement with his breathing. He denies chest pain, cough, abdominal pain, fever, chills. OBJECTIVE: Vital Signs Period Temp Pulse Resp BP Sys/[place]all Pulse Ox Last 24 Hr 97.5 F-99.6 F 75-104 16-28 113-147/65-94 94-100 GENERAL: The patient is awake, alert, and fully oriented, in no acute distress. HEAD: Normal with no signs of trauma. EYES: PERRL, extraocular movements intact, sclera anicteric, conjunctiva clear. No ptosis. ENT: Ears normal, nares patent, oropharynx clear without exudates, moist mucous membranes. NECK: Trachea midline, full range of motion, supple. LUNGS: Breath sounds equal, diminished breath sounds bilaterally at bases, no wheezes, no crackles, no accessory muscle use. HEART: Regular rate and rhythm, distant heart sounds, S1, S2 without murmur, rub or gallop. ABDOMEN: Obese, soft, nontender, nondistended, normoactive bowel sounds, no guarding, no rebound, no hepatosplenomegaly, no masses. EXTREMITIES: 2+ pulses, warm, well-perfused, trace peripheral edema, chronic venous stasis changes in LE B/L. NEUROLOGICAL: Cranial nerves II through XII grossly intact. Normal speech, gait not observed. PSYCH: Normal mood, normal affect. SKIN: Warm, dry, normal turgor, no rashes or lesions noted Laboratory Results - last 24 hr 05/06/16 05/06/16 05/06/16 05:05 05:05 07:10 WBC 12.8 H D RBC 4.84 Hgb 13.8 D Hct 43.8 MCV 90.4 MCHC 31.6 L RDW 16.7 H Plt Count 264 MPV 8.2 Anticoagulation Therapy Cancelled Puncture Site Cancelled Patient Temperature Cancelled ABG pH Cancelled ABG pCO2 at Pt Temp Cancelled ABG pO2 at Pt Temp Cancelled ABG HCO3 Cancelled ABG O2 Sat (Measured) Cancelled ABG O2 Content Cancelled ABG Base Excess Cancelled [place]lin Test Cancelled O2 Delivery Device Cancelled Oxygen Flow Rate Cancelled Vent Mode Cancelled Vent Rate Cancelled Mechanical Rate Cancelled PEEP Cancelled Pressure Support Vent Cancelled Sodium 138 Potassium 4.7 Chloride 96 L Carbon Dioxide 39 H Anion Gap 3 L BUN 13 Creatinine 0.7 Random Glucose 125 H D Calcium 8.6 Phosphorus 4.7 D Magnesium 2.5 H 05/06/16 07:20 WBC RBC Hgb Hct MCV MCHC RDW Plt Count MPV Anticoagulation Therapy Puncture Site Right radial Patient Temperature ABG pH 7.37 ABG pCO2 at Pt Temp 63.2 H* D ABG pO2 at Pt Temp 96.0 ABG HCO3 35.8 H ABG O2 Sat (Measured) 97.2 ABG O2 Content 18.9 ABG Base Excess 8.5 H Orlin Test Positive O2 Delivery Device Bipap Oxygen Flow Rate 35% Vent Mode S/t Vent Rate 16 Mechanical Rate Bipap PEEP 0.0 Pressure Support Vent 14/7 Sodium Potassium Chloride Carbon Dioxide Anion Gap BUN Creatinine Random Glucose Calcium Phosphorus Magnesium Active Medications Generic Name Dose Route Start Last Admin Trade Name Freq PRN Reason Stop Dose Admin Acetaminophen 650 mg 05/01/16 20:36 05/01/16 21:15 Tylenol - PO 650 mg Q4H PRN Administration FEVER OR PAIN Albuterol/Ipratropium 1 amp 05/01/16 20:19 Duoneb - NEB Q6H PRN SHORTNESS OF BREATH Albuterol/Ipratropium 1 amp 05/02/16 11:15 05/06/16 07:04 Duoneb - NEB 1 amp Q6H PALLAVI Administration Amlodipine Besylate 5 mg 05/02/16 11:15 05/06/16 10:22 Norvasc - PO 5 mg DAILY PALLAVI Administration Atorvastatin Calcium 10 mg 05/01/16 22:00 05/05/16 21:29 Lipitor - PO 10 mg HS PALLAVI Administration Chlorhexidine Gluconate 1 applic 05/01/16 22:00 05/05/16 21:30 Hibiclens For Decolonization - TP 1 applic HS PALLAVI Administration Furosemide 60 mg 05/05/16 18:15 05/06/16 05:49 Lasix - PO 60 mg BIDLASIX PALLAVI Administration Methimazole 10 mg 05/02/16 10:00 05/05/16 09:30 Tapazole - PO 10 mg DAILY PALLAVI Administration Methylprednisolone Sodium Succinate 40 mg 05/04/16 10:00 05/06/16 10:24 Solu-Medrol - IVPB 40 mg BID PALLAVI Administration Multivitamins 1 each 05/02/16 10:00 05/06/16 10:24 Total B With C - PO 1 each DAILY PALLAVI Administration Multivitamins/Minerals/Vitamin C 1 tab 05/02/16 10:00 05/06/16 10:24 Tab-A-Vit - PO 1 tab DAILY PALLAVI Administration Mupirocin 1 applic 05/01/16 22:00 05/06/16 10:24 Bactroban Ointment (For Decolonization) - NS 05/06/16 21:59 1 applic BID PALLAVI Administration Pantoprazole Sodium 20 mg 05/02/16 10:00 05/06/16 10:23 Protonix - PO 20 mg DAILY PALLAVI Administration Rivaroxaban 20 mg 05/02/16 10:00 05/06/16 10:23 Xarelto - PO 20 mg DAILY PALLAVI Administration Fluticasone/Salmeterol 1 puff 05/02/16 11:00 05/06/16 10:35 Advair 100mcg/50mcg - IH 1 puff BID PALLAVI Administration Timolol Maleate 1 drop 05/02/16 10:00 05/06/16 10:28 Timoptic 0.5% OU 1 drop DAILY PALLAVI Administration ASSESSMENT/PLAN: 45yM with morbid obesity, BONY, COPD-emphysema, diastolic CHF, anemia, UGI bleed , HTN, hyperthyroid, gluacoma, DVT, kidney stones and hiatal hernia, recent hospitalization for COPD exacerbation, intubated presents with SOB x 4 days. He is being admitted for acute on chronic respiratory failure due to COPD exacerbation. He is admitted to ICU. acute on chronic respiratory failure due to COPD exacerbation: -on Bi-Pap at night, seen in AM on NC -will continue steroids BID today -WBC elevated today, probably due to steroid use, no chest x ray changes -Pneumonia r/o at this moment -duonebs standing and PRN Hypertension: -Norvasc 5 mg Daily -the pt was not on any hypertensive meds in the past diastolic CHF: -cont home Lasix 60 mg BID -no acute exacerbation now -still negative I&O in past 24 hrs -last ECHO in 2015 was nl, nl EF Hyperlipidemia - cont home Lipitor chronic pain - cont home Tramadol PRN only DVT PPX: - continue Xarelto F/E/N; No/No changes/Low sodium diet Disposition: ICU. Problem List - Problems (1) Hypercapnic respiratory failure Code(s): J96.92 - RESPIRATORY FAILURE, UNSPECIFIED WITH HYPERCAPNIA Qualifiers : Chronicity: acute on chronic Qualified Code(s): J96.22 - Acute and chronic respiratory failure with hypercapnia (2) Hypoxemia Code(s): R09.02 - HYPOXEMIA (3) Morbid obesity Code(s): E66.01 - MORBID (SEVERE) OBESITY DUE TO EXCESS CALORIES Qualifiers: Obesity type: due to excess calories Qualified Code(s): E66.01 - Morbid (severe) obesity due to excess calories (4) Obstructive apnea Code(s): G47.33 - OBSTRUCTIVE SLEEP APNEA (ADULT) (PEDIATRIC) Visit type - Emergency Visit Emergency Visit: Yes ED Registration Date: 05/01/16 Care time: The patient presented to the Emergency Department on the above date and was hospitalized for further evaluation of their emergent condition. - New Patient This patient is new to me today: No - Critical Care Critical Care patient: Yes Total Critical Care Time (in minutes): 35 Critical Care Statement: The care of this patient involved high complexity decision making to prevent further life threatening deterioration of the patient 's condition and/or to evalute & treat vital organ system(s) failure or risk of failure.
--- NOTE | 2016-05-06 11:56 | PN ---
Teaching Attending Note Name of Resident: Franky Lock ATTENDING PHYSICIAN STATEMENT I saw and evaluated the patient. I reviewed the resident's note and discussed the case with the resident. I agree with the resident's findings and plan as documented. SUBJECTIVE: OBJECTIVE: ASSESSMENT AND PLAN:
--- NOTE | 2016-05-06 11:59 | PN ---
Teaching Attending Note Name of Resident: Franky Lock ATTENDING PHYSICIAN STATEMENT I saw and evaluated the patient. I reviewed the resident's note and discussed the case with the resident. I agree with the resident's findings and plan as documented. SUBJECTIVE: Pt seen and examined in the ICU. Extubated yesterday without incident. BiPAP overnight. States breathing better but more lethargic per nursing. Diuresing well. OBJECTIVE: Last Vital Signs Temp Pulse Resp BP Pulse Ox 98.6 F 75 20 113/65 94 L 05/06/16 10:00 05/06/16 10:00 05/06/16 10:00 05/06/16 10:00 05/06/16 09:35 Intake & Output 05/03/16 05/04/16 05/05/16 05/06/16 23:59 23:59 23:59 23:59 Intake Total 2925 3336.4 1677.8 240 Output Total 2600 4200 4800 450 Balance 325 -863.6 -3122.2 -210 Weight 355 lb 1 oz 355 lb 14.4 oz 352 lb 8 oz Gen: mildly tachypneic at rest Heart: RRR Lung: distant breath sounds, no wheezes Abd: soft, nontender, obese Ext: no edema CBC, BMP 05/06/16 05:05 05/06/16 05:05 Active Medications Acetaminophen (Tylenol -) 650 mg PO Q4H PRN PRN Reason: FEVER OR PAIN Last Admin: 05/01/16 21:15 Dose: 650 mg Albuterol/Ipratropium (Duoneb -) 1 amp NEB Q6H PRN PRN Reason: SHORTNESS OF BREATH Albuterol/Ipratropium (Duoneb -) 1 amp NEB Q6H [facility] Last Admin: 05/06/16 11:31 Dose: 1 amp Amlodipine Besylate (Norvasc -) 5 mg PO DAILY [facility] Last Admin: 05/06/16 10:22 Dose: 5 mg Atorvastatin Calcium (Lipitor -) 10 mg PO HS [facility] Last Admin: 05/05/16 21:29 Dose: 10 mg Chlorhexidine Gluconate (Hibiclens For Decolonization -) 1 applic TP HS [facility] Last Admin: 05/05/16 21:30 Dose: 1 applic Furosemide (Lasix -) 60 mg PO BIDLASIX [facility] Last Admin: 05/06/16 05:49 Dose: 60 mg Methimazole (Tapazole -) 10 mg PO DAILY [facility] Last Admin: 05/05/16 09:30 Dose: 10 mg Methylprednisolone Sodium Succinate (Solu-Medrol -) 40 mg IVPB BID [facility] Last Admin: 05/06/16 10:24 Dose: 40 mg Multivitamins (Total B With C -) 1 each PO DAILY [facility] Last Admin: 05/06/16 10:24 Dose: 1 each Multivitamins/Minerals/Vitamin C (Tab-A-Vit -) 1 tab PO DAILY [facility] Last Admin: 05/06/16 10:24 Dose: 1 tab Mupirocin (Bactroban Ointment (For Decolonization) -) 1 applic NS BID [facility] Stop: 05/06/16 21:59 Last Admin: 05/06/16 10:24 Dose: 1 applic Pantoprazole Sodium (Protonix -) 20 mg PO DAILY [facility] Last Admin: 05/06/16 10:23 Dose: 20 mg Rivaroxaban (Xarelto -) 20 mg PO DAILY [facility] Last Admin: 05/06/16 10:23 Dose: 20 mg Fluticasone/Salmeterol (Advair 100mcg/50mcg -) 1 puff IH BID [facility] Last Admin: 05/06/16 10:35 Dose: 1 puff Timolol Maleate (Timoptic 0.5%) 1 drop OU DAILY [facility] Last Admin: 05/06/16 10:28 Dose: 1 drop ASSESSMENT AND PLAN: Acute on Chronic Hypoxic and Hypercapneic Respiratory Failure r/o Acute COPD Exacerbation r/o Acute on Chronic LV Diastolic Dysfunction Morbid Obesity BONY/OHS h/o DVT - BIPAP, adjusted to home settings of - repeat ABG - monitoring off antibiotics - continue empiric medrol - inhaled bronchodilators - o2 to keep SpO2 88-92% to avoid worsening V/Q mismatch - continue lasix - monitor urine output, creatinine - continue anticoagulation - DVT/GI prophylaxis - can transfer to telemetry with pulse oximetry monitoring
[2016-05-06 12:12] LABS: ARTERIAL BLD GAS O2 SATURATION 97.8 % (90-98.9); ARTERIAL BLOOD GAS HCO3 38.4 meq/L (22-26); ARTERIAL BLOOD GAS PO2 99.6 mmHg (80-100); ARTERIAL BLOOD GAS pH 7.39 (7.35-7.45)
[2016-05-06 12:13] LABS: ALLENS TEST POSITIVE; ART PUNCT SITE LEFT RADIAL; LPM/O2% 35%; PT. ON O2? YES; TYPE OF O2 BI-PAP; VENT RATE 16; VT/PRESS 22/18
--- NOTE | 2016-05-06 13:58 | PN ---
Progress Note, Physician History of Present Illness: patient seen and examined feels better - Current Medication List Current Medications: Active Medications Acetaminophen (Tylenol -) 650 mg PO Q4H PRN PRN Reason: FEVER OR PAIN Last Admin: 05/01/16 21:15 Dose: 650 mg Albuterol/Ipratropium (Duoneb -) 1 amp NEB Q6H PRN PRN Reason: SHORTNESS OF BREATH Albuterol/Ipratropium (Duoneb -) 1 amp NEB Q6H [facility] Last Admin: 05/06/16 11:31 Dose: 1 amp Amlodipine Besylate (Norvasc -) 5 mg PO DAILY [facility] Last Admin: 05/06/16 10:22 Dose: 5 mg Atorvastatin Calcium (Lipitor -) 10 mg PO HS [facility] Last Admin: 05/05/16 21:29 Dose: 10 mg Chlorhexidine Gluconate (Hibiclens For Decolonization -) 1 applic TP HS [facility] Last Admin: 05/05/16 21:30 Dose: 1 applic Furosemide (Lasix -) 60 mg PO BIDLASIX [facility] Last Admin: 05/06/16 05:49 Dose: 60 mg Methimazole (Tapazole -) 10 mg PO DAILY [facility] Last Admin: 05/05/16 09:30 Dose: 10 mg Methylprednisolone Sodium Succinate (Solu-Medrol -) 40 mg IVPB BID [facility] Last Admin: 05/06/16 10:24 Dose: 40 mg Multivitamins (Total B With C -) 1 each PO DAILY [facility] Last Admin: 05/06/16 10:24 Dose: 1 each Multivitamins/Minerals/Vitamin C (Tab-A-Vit -) 1 tab PO DAILY [facility] Last Admin: 05/06/16 10:24 Dose: 1 tab Mupirocin (Bactroban Ointment (For Decolonization) -) 1 applic NS BID [facility] Stop: 05/06/16 21:59 Last Admin: 05/06/16 10:24 Dose: 1 applic Pantoprazole Sodium (Protonix -) 20 mg PO DAILY [facility] Last Admin: 05/06/16 10:23 Dose: 20 mg Rivaroxaban (Xarelto -) 20 mg PO DAILY [facility] Last Admin: 05/06/16 10:23 Dose: 20 mg Fluticasone/Salmeterol (Advair 100mcg/50mcg -) 1 puff IH BID [facility] Last Admin: 05/06/16 10:35 Dose: 1 puff Timolol Maleate (Timoptic 0.5%) 1 drop OU DAILY [facility] Last Admin: 05/06/16 10:28 Dose: 1 drop - Objective Vital Signs: Vital Signs Temperature 98.6 F 05/06/16 10:00 Pulse Rate 76 05/06/16 12:00 Respiratory Rate 20 05/06/16 12:00 Blood Pressure 118/85 05/06/16 12:00 O2 Sat by Pulse Oximetry (%) 94 L 05/06/16 09:35 Constitutional: Yes: Obese Eyes: Yes: EOM Intact Neck: Yes: Supple Cardiovascular: Yes: Regular Rate and Rhythm Respiratory: Yes: Diminished,distant breath sounds otherwise clear Gastrointestinal: Yes: Soft, Abdomen, Obese Edema: Yes (non pitting ) Labs: CBC, BMP 05/06/16 05:05 05/06/16 05:05 INR, PTT INR 2.68 (0.82-1.09) H D 05/01/16 16:20 Assessment/Plan 45M with multiple medical problems presents with acute on chronic hypoxic hypercapneic resp failure requriting intubation Acute of chronic hypercapneic hypoxic resp failure extubated Off ABx unlikely to be PNA ID consult appreciated-signed off reconsult PRN solumedrol taper Lasix PO Advair Jeremiah CXR in AM HTN: Norvasc lasix HLD: continue statin history of DVT on xarelto-will continue hyperthyroidism continue methimazole BONY/OHS will need outpt sleep studies BiPAP PRN and at night will need BiPAP before leaving hospital PPx: Xarelto Protonix PT consult FEN: off IVF no electrolyte issues fat controlled diet
--- NOTE | 2016-05-06 15:14 | PN ---
Progress Note, Physician History of Present Illness: Pt alert, OOB in chair, NAD - Current Medication List Current Medications: Active Medications Acetaminophen (Tylenol -) 650 mg PO Q4H PRN PRN Reason: FEVER OR PAIN Last Admin: 05/01/16 21:15 Dose: 650 mg Albuterol/Ipratropium (Duoneb -) 1 amp NEB Q6H PRN PRN Reason: SHORTNESS OF BREATH Albuterol/Ipratropium (Duoneb -) 1 amp NEB Q6H [facility] Last Admin: 05/06/16 11:31 Dose: 1 amp Amlodipine Besylate (Norvasc -) 5 mg PO DAILY [facility] Last Admin: 05/06/16 10:22 Dose: 5 mg Atorvastatin Calcium (Lipitor -) 10 mg PO HS [facility] Last Admin: 05/05/16 21:29 Dose: 10 mg Chlorhexidine Gluconate (Hibiclens For Decolonization -) 1 applic TP HS [facility] Last Admin: 05/05/16 21:30 Dose: 1 applic Furosemide (Lasix -) 60 mg PO BIDLASIX [facility] Last Admin: 05/06/16 05:49 Dose: 60 mg Methimazole (Tapazole -) 10 mg PO DAILY [facility] Last Admin: 05/05/16 09:30 Dose: 10 mg Methylprednisolone Sodium Succinate (Solu-Medrol -) 40 mg IVPB BID [facility] Last Admin: 05/06/16 10:24 Dose: 40 mg Multivitamins (Total B With C -) 1 each PO DAILY [facility] Last Admin: 05/06/16 10:24 Dose: 1 each Multivitamins/Minerals/Vitamin C (Tab-A-Vit -) 1 tab PO DAILY [facility] Last Admin: 05/06/16 10:24 Dose: 1 tab Mupirocin (Bactroban Ointment (For Decolonization) -) 1 applic NS BID [facility] Stop: 05/06/16 21:59 Last Admin: 05/06/16 10:24 Dose: 1 applic Pantoprazole Sodium (Protonix -) 20 mg PO DAILY [facility] Last Admin: 05/06/16 10:23 Dose: 20 mg Rivaroxaban (Xarelto -) 20 mg PO DAILY [facility] Last Admin: 05/06/16 10:23 Dose: 20 mg Fluticasone/Salmeterol (Advair 100mcg/50mcg -) 1 puff IH BID [facility] Last Admin: 05/06/16 10:35 Dose: 1 puff Timolol Maleate (Timoptic 0.5%) 1 drop OU DAILY [facility] Last Admin: 05/06/16 10:28 Dose: 1 drop - Objective Vital Signs: Vital Signs Temperature 98.2 F 05/06/16 14:00 Pulse Rate 78 05/06/16 14:00 Respiratory Rate 20 05/06/16 14:00 Blood Pressure 117/77 05/06/16 14:00 O2 Sat by Pulse Oximetry (%) 94 L 05/06/16 13:25 Constitutional: Yes: No Distress Eyes: No: Sclera Icterus HENT: Yes: Atraumatic, Normocephalic Neck: Yes: Supple, Trachea Midline Cardiovascular: Yes: Regular Rate and Rhythm. No: JVD Respiratory: Yes: Diminished (bilateral) Gastrointestinal: Yes: Soft. No: Tenderness Edema: No Labs: CBC, BMP 05/06/16 05:05 05/06/16 05:05 INR, PTT INR 2.68 (0.82-1.09) H D 05/01/16 16:20 Problem List - Problems (1) Acute and chronic respiratory failure ([id number]) Code(s): J96.20 - ACUTE AND CHR RESP FAILURE, UNSP W HYPOXIA OR HYPERCAPNIA (2) Obstructive apnea Code(s): G47.33 - OBSTRUCTIVE SLEEP APNEA (ADULT) (PEDIATRIC) (3) Morbid obesity with BMI of 50.0-59.9, adult Code(s): Z68.43 - BODY MASS INDEX (BMI) 50-59.9 , ADULT Assessment/Plan Aciute on Chronic Resp Failure; pt improving. Extubated; out of bed COPD Morbid Obesity BONY Plan: Bipap at night and PRN Upon discharge pt needs to have BIPAP machine arranged for home use (his current one is apparently broken) IV Steroids Antibiotic Diuretic O2 to maintain SaO2 >90 Referral to bariatric surgeon (who accepts his insurance) upon discharge
[2016-05-06] MEDS ORDERED: ACETAMINOPHEN 325 MG TABLET (FP) PO PRN (19:19)
[2016-05-06] MEDS ORDERED: ALBUTEROL SO4 2.5/IPRATROPIUM 0.5 INH SOL 3 ML VIAL.NEB. NEB PRN (19:19)
[2016-05-06] MEDS: ATORVASTATIN CA 10 MG TABLET (FP) PO SCH (21:35)
[2016-05-06] MEDS ORDERED: CHLORHEXIDINE GLUCONATE 4% CLEANSER FOR DECOLONIZATION TP SCH (22:00)
[2016-05-06] MEDS ORDERED: MUPIROCIN 2% TOPICAL OINTMENT FOR DECOLONIZATION NS SCH (22:00)
[2016-05-07] MEDS: ALBUTEROL SO4 2.5/IPRATROPIUM 0.5 INH SOL 3 ML VIAL.NEB. NEB SCH ×5 (00:19→23:40)
[2016-05-07] MEDS: FUROSEMIDE 40 MG TABLET (FP) PO SCH ×2 (06:00→13:15)
[2016-05-07 07:33] LABS: MCH 28.9 pg (25.7-33.7); MCHC 31.8 g/dl (32.0-35.9); MEAN CELL VOLUME 90.8 fl (80-96); PLATELET COUNT 264 K/MM3 (134-434); RDW 16.4 % (11.9-15.9); WHITE BLOOD COUNT 11.3 K/mm3 (4.0-10.0)
[2016-05-07 08:01] LABS: CALCIUM 8.7 mg/dL (8.5-10.1); CREATININE 0.6 mg/dL (0.7-1.3)
--- NOTE | 2016-05-07 09:22 | PN ---
Teaching Attending Note Name of Resident: Brooklynn Roy ATTENDING PHYSICIAN STATEMENT I saw and evaluated the patient. I reviewed the resident's note and discussed the case with the resident. I agree with the resident's findings and plan as documented. SUBJECTIVE: No new complains, would like to have bariatric surgery. OBJECTIVE: Vital Signs Temperature 98.1 F 05/07/16 06:00 Pulse Rate 87 05/07/16 06:00 Respiratory Rate 18 05/07/16 06:00 Blood Pressure 124/84 05/07/16 06:00 O2 Sat by Pulse Oximetry (%) 97 05/06/16 22:45 GENERAL: The patient is awake, alert, and fully oriented, in no distress, Morbidly obesity HEAD: Normal with no signs of trauma. EYES: PERRL, extraocular movements intact, sclera anicteric, conjunctiva clear. ENT: Ears normal, oropharynx clear without exudates, moist mucous membranes. NECK: Trachea midline, full range of motion, supple. LUNGS: diminished breath sounds bilaterally, distant breath sounds. HEART: Regular rate and rhythm, S1, S2 without murmur, rub or gallop. ABDOMEN: Large , soft, nontender, nondistended, normoactive bowel sounds, no guarding, no rebound, no masses. EXTREMITIES: 2+ pulses, warm, 1+ edema B/L, venous stasis changes in lower extremities B/L. NEUROLOGICAL: Cranial nerves II through XII grossly intact. Slurred speech, gait not observed. PSYCH: Normal mood, normal affect. SKIN: Warm, dry, normal turgor, no rashes or lesions noted CBCD WBC 11.3 K/mm3 (4.0-10.0) H 05/07/16 05:35 RBC 4.61 M/mm3 (4.00-5.60) 05/07/16 05:35 Hgb 13.3 GM/dL (11.7-16.9) 05/07/16 05:35 Hct 41.8 % (35.4-49) 05/07/16 05:35 MCV 90.8 fl (80-96) 05/07/16 05:35 MCHC 31.8 g/dl (32.0-35.9) L 05/07/16 05:35 RDW 16.4 % (11.9-15.9) H 05/07/16 05:35 Plt Count 264 K/MM3 (134-434) 05/07/16 05:35 MPV 8.0 fl (7.5-11.1) 05/07/16 05:35 CMP Sodium 136 mmol/L (136-145) 05/07/16 05:35 Potassium 4.6 mmol/L (3.5-5.1) 05/07/16 05:35 Chloride 93 mmol/L (98-107) L 05/07/16 05:35 Carbon Dioxide 38 mmol/L (21-32) H 05/07/16 05:35 Anion Gap 5 (8-16) L 05/07/16 05:35 BUN 17 mg/dL (7-18) D 05/07/16 05:35 Creatinine 0.6 mg/dL (0.7-1.3) L 05/07/16 05:35 Creat Clearance w eGFR > 60 (>60) 05/02/16 05:20 Random Glucose 126 mg/dL (74-106) H 05/07/16 05:35 Calcium 8.7 mg/dL (8.5-10.1) 05/07/16 05:35 Total Bilirubin 0.9 mg/dL (0.2-1.0) D 05/02/16 05:20 AST 18 U/L (15-37) 05/02/16 05:20 ALT 13 U/L (12-78) 05/02/16 05:20 Alkaline Phosphatase 113 U/L (45-117) 05/02/16 05:20 Total Protein 7.3 g/dl (6.4-8.2) 05/02/16 05:20 Albumin 3.5 g/dl (3.4-5.0) 05/02/16 05:20 CARDIAC ENZYMES Creatine Kinase 33 IU/L (39-308) L 05/01/16 22:30 Troponin I < 0.02 ng/ml (0.00-0.05) 05/01/16 22:30 Current Medications Generic Name Dose Route Start Last Admin Trade Name Freq PRN Reason Stop Dose Admin Acetaminophen 650 mg 05/06/16 19:19 Tylenol - PO Q4H PRN FEVER OR PAIN Albuterol/Ipratropium 1 amp 05/06/16 19:19 Duoneb - NEB Q6H PRN SHORTNESS OF BREATH Albuterol/Ipratropium 1 amp 05/07/16 00:00 05/07/16 07:04 Duoneb - NEB 1 amp QIDR [facility] Administration Amlodipine Besylate 5 mg 05/07/16 10:00 Norvasc - PO DAILY [facility] Atorvastatin Calcium 10 mg 05/06/16 22:00 05/06/16 21:35 Lipitor - PO 10 mg HS [facility] Administration Furosemide 60 mg 05/07/16 06:00 05/07/16 06:00 Lasix - PO 60 mg BIDLASIX [facility] Administration Methimazole 10 mg 05/07/16 10:00 Tapazole - PO DAILY [facility] Methylprednisolone Sodium Succinate 40 mg 05/06/16 22:00 05/06/16 21:35 Solu-Medrol - IVPB 40 mg BID [facility] Administration Multivitamins 1 each 05/07/16 10:00 Total B With C - PO DAILY [facility] Multivitamins/Minerals/Vitamin C 1 tab 05/07/16 10:00 Tab-A-Vit - PO DAILY [facility] Pantoprazole Sodium 20 mg 05/07/16 10:00 Protonix - PO DAILY [facility] Rivaroxaban 20 mg 05/07/16 10:00 Xarelto - PO DAILY [facility] Fluticasone/Salmeterol 1 puff 05/06/16 22:00 05/06/16 21:37 Advair 100mcg/50mcg - IH Not Given BID [facility] Timolol Maleate 1 drop 05/07/16 10:00 Timoptic 0.5% OU DAILY [facility] Medication Instructions Recorded Albuterol Sulfate Inhaler - 2 inh PO Q4H 05/10/15 [Ventolin HFA Inhaler -] Arformoterol Tartrate [Brovana -] 1 neb NEB BID 05/10/15 Ergocalciferol [Drisdol -] 50,000 unit PO WEEKLY 05/10/15 Furosemide [Lasix -] 60 mg PO BID 05/10/15 Methimazole 10 mg PO DAILY 05/10/15 Pantoprazole Sodium [Protonix -] 20 mg PO DAILY 05/10/15 Rivaroxaban [Xarelto -] 20 mg PO DAILY 05/10/15 Vitamin B Complex 1 each PO DAILY 05/10/15 Timolol 0.5% [Timoptic 0.5%] 1 drop OU DAILY drops 05/15/15 Atorvastatin Ca [Lipitor] 10 mg PO DAILY 09/06/15 Multivitamin [Poly-Vitamin] 1 each PO DAILY 09/06/15 Potassium Chloride [K-Dur -] 20 meq PO Q2D@1000 tablet.er 09/12/15 Prednisone [Deltasone -] 10 mg PO DAILY #30 tablet 11/08/15 Tramadol HCl [Ultram -] 50 mg PO BID #60 tablet MDD 100 mg 11/08/15 ASSESSMENT AND PLAN: Patient is 45 y/o man with h/o morbid obesity, BONY, COPD-emphysema, diastolic CHF, anemia, UGI bleed, HTN, hyperthyroid, gluacoma, DVT, kidney stones and hiatal hernia , recent intubation due to acute resp failure , who presented with SOb and was found to have acute on chronic resp failure due to copd exa. # Acute on chronic hypercapnic respiratory failure due to Acute COPD exacerbation s/p intubation and extubation improving on IV Steroids 40mg Bid, Duo-NEbs and advair continue. Off ICU now # Hx of DVT: continue Xarelto # H/o Diastolic CHF .stable ,last echo in 2015 showed nL EF and LV size , continue lasix 60 mg po BID , I&O, daily weight # HTN: cont Norvasc and Lasix # hX OF hYPERTHYROIDISM continue Tapazole # Hx of HLP continue Lipitor # hypokalemia: resolved DVT Px: on Xarelto treatment
[2016-05-07] MEDS ORDERED: amLODIPine BESYLATE 5 MG TABLET (FP) PO SCH (10:00)
[2016-05-07] MEDS: PANTOPRAZOLE 20 MG TABLET (FP) PO SCH (10:31)
[2016-05-07] MEDS: MULTIVITAMINS (DAILY MVI) TABLET (FP) PO SCH (10:31)
[2016-05-07] MEDS: RIVAROXABAN 20 MG TABLET PO SCH (10:31)
[2016-05-07] MEDS: methylPREDNISolone NA SUCC 40 MG/1 ML VIAL IVPB SCH ×2 (10:32→22:30)
[2016-05-07] MEDS: FLUTICASONE/SALMETEROL 100 MCG/50 MCG DISKUS IH SCH ×2 (10:32→22:30)
[2016-05-07] MEDS: TIMOLOL 0.5% OPHTHALMIC SOL 5 ML BOTTLE OU SCH (12:00)
[2016-05-07] MEDS: VITAMIN B COMPLEX W/C COMBO TABLET (FP) PO SCH (13:14)
[2016-05-07] MEDS: METHIMAZOLE 10 MG TABLET (FP) PO SCH (13:15)
--- NOTE | 2016-05-07 14:13 | PN ---
Progress Note, Physician History of Present Illness: Pt alert NAD. Comfortable lying flat - Current Medication List Current Medications: Active Medications Acetaminophen (Tylenol -) 650 mg PO Q4H PRN PRN Reason: FEVER OR PAIN Albuterol/Ipratropium (Duoneb -) 1 amp NEB Q6H PRN PRN Reason: SHORTNESS OF BREATH Albuterol/Ipratropium (Duoneb -) 1 amp NEB QIDR [facility] Last Admin: 05/07/16 11:45 Dose: 1 amp Amlodipine Besylate (Norvasc -) 5 mg PO DAILY [facility] Last Admin: 05/07/16 10:31 Dose: 5 mg Atorvastatin Calcium (Lipitor -) 10 mg PO HS [facility] Last Admin: 05/06/16 21:35 Dose: 10 mg Furosemide (Lasix -) 60 mg PO BIDLASIX [facility] Last Admin: 05/07/16 13:15 Dose: 60 mg Methimazole (Tapazole -) 10 mg PO DAILY [facility] Last Admin: 05/07/16 13:15 Dose: 10 mg Methylprednisolone Sodium Succinate (Solu-Medrol -) 40 mg IVPB BID [facility] Last Admin: 05/07/16 10:32 Dose: 40 mg Multivitamins (Total B With C -) 1 each PO DAILY [facility] Last Admin: 05/07/16 13:14 Dose: 1 each Multivitamins/Minerals/Vitamin C (Tab-A-Vit -) 1 tab PO DAILY [facility] Last Admin: 05/07/16 10:31 Dose: 1 tab Pantoprazole Sodium (Protonix -) 20 mg PO DAILY [facility] Last Admin: 05/07/16 10:31 Dose: 20 mg Rivaroxaban (Xarelto -) 20 mg PO DAILY [facility] Last Admin: 05/07/16 10:31 Dose: 20 mg Fluticasone/Salmeterol (Advair 100mcg/50mcg -) 1 puff IH BID [facility] Last Admin: 05/07/16 10:32 Dose: 1 puff Timolol Maleate (Timoptic 0.5%) 1 drop OU DAILY [facility] - Objective Vital Signs: Vital Signs Temperature 98 F 05/07/16 10:00 Pulse Rate 97 H 05/07/16 10:50 Respiratory Rate 20 05/07/16 10:00 Blood Pressure 130/93 05/07/16 10:00 O2 Sat by Pulse Oximetry (%) 93 L 05/07/16 10:50 Constitutional: Yes: No Distress Eyes: No: Sclera Icterus HENT: Yes: Atraumatic, Normocephalic Neck: Yes: Supple, Trachea Midline Cardiovascular: Yes: Regular Rate and Rhythm. No: JVD Respiratory: Yes: CTA Bilaterally Gastrointestinal: Yes: Soft Extremities: Yes: Calf Tenderness Edema: No Neurological: Yes: Alert, Oriented Labs: CBC, BMP 05/07/16 05:35 05/07/16 05:35 INR, PTT INR 2.68 (0.82-1.09) H D 05/01/16 16:20 Problem List - Problems (1) Acute and chronic respiratory failure ([id number]) Code(s): J96.20 - ACUTE AND CHR RESP FAILURE, UNSP W HYPOXIA OR HYPERCAPNIA (2) Obstructive apnea Code(s): G47.33 - OBSTRUCTIVE SLEEP APNEA (ADULT) (PEDIATRIC) (3) Morbid obesity with BMI of 50.0-59.9, adult Code(s): Z68.43 - BODY MASS INDEX (BMI) 50-59.9 , ADULT Assessment/Plan Aciute on Chronic Resp Failure; pt improving. COPD Morbid Obesity BONY Plan: Bipap at night and PRN IV Steroids Antibiotic Diuretic O2 to maintain SaO2 >90
--- NOTE | 2016-05-07 16:58 | PN ---
Progress Note, Physician Chief Complaint: Pt denies chest pain. +Dyspnea on mild exertion. History of Present Illness: This is a 45 year old black male with a past medical history of morbid obesity, BONY, COPD-emphysema, diastolic CHF, anemia, UGI bleed, HTN, hyperthyroid, gluacoma, DVT, s/p substance abuse; kidney stones, and hiatal hernia, who presents with increasing SOB x 4 days. Denies fever, chills, increased cough. Reports that he just hasn't been able to breathe the same since his intubation in January. Denies chest pain, nausea, vomiting. Pt also states his CPAP is not working properly. - Current Medication List Current Medications: Active Medications Acetaminophen (Tylenol -) 650 mg PO Q4H PRN PRN Reason: FEVER OR PAIN Albuterol/Ipratropium (Duoneb -) 1 amp NEB Q6H PRN PRN Reason: SHORTNESS OF BREATH Albuterol/Ipratropium (Duoneb -) 1 amp NEB QIDR [facility] Last Admin: 05/07/16 11:45 Dose: 1 amp Amlodipine Besylate (Norvasc -) 5 mg PO DAILY [facility] Last Admin: 05/07/16 10:31 Dose: 5 mg Atorvastatin Calcium (Lipitor -) 10 mg PO HS [facility] Last Admin: 05/06/16 21:35 Dose: 10 mg Furosemide (Lasix -) 60 mg PO BIDLASIX [facility] Last Admin: 05/07/16 13:15 Dose: 60 mg Methimazole (Tapazole -) 10 mg PO DAILY [facility] Last Admin: 05/07/16 13:15 Dose: 10 mg Methylprednisolone Sodium Succinate (Solu-Medrol -) 40 mg IVPB BID [facility] Last Admin: 05/07/16 10:32 Dose: 40 mg Multivitamins (Total B With C -) 1 each PO DAILY [facility] Last Admin: 05/07/16 13:14 Dose: 1 each Multivitamins/Minerals/Vitamin C (Tab-A-Vit -) 1 tab PO DAILY [facility] Last Admin: 05/07/16 10:31 Dose: 1 tab Pantoprazole Sodium (Protonix -) 20 mg PO DAILY [facility] Last Admin: 05/07/16 10:31 Dose: 20 mg Rivaroxaban (Xarelto -) 20 mg PO DAILY [facility] Last Admin: 05/07/16 10:31 Dose: 20 mg Fluticasone/Salmeterol (Advair 100mcg/50mcg -) 1 puff IH BID [facility] Last Admin: 05/07/16 10:32 Dose: 1 puff Timolol Maleate (Timoptic 0.5%) 1 drop OU DAILY [facility] - Objective Vital Signs: Vital Signs Temperature 98.6 F 05/07/16 14:04 Pulse Rate 115 H 05/07/16 14:04 Respiratory Rate 20 05/07/16 14:04 Blood Pressure 122/90 05/07/16 14:04 O2 Sat by Pulse Oximetry (%) 93 L 05/07/16 10:50 Constitutional: Yes: Calm Eyes: Yes: WNL HENT: Yes: WNL Neck: Yes: WNL Cardiovascular: Yes: Tachycardia, S1, S2, S4 Respiratory: Yes: Regular, Diminished Gastrointestinal: Yes: Soft, Abdomen, Obese ...Rectal Exam: Yes: Deferred Genitourinary: No: Anuria Breast(s): Yes: WNL Musculoskeletal: Yes: Joint Swelling, Muscle Weakness Extremities: Yes: Cool Edema: Yes Edema: LLE: 1+, RLE: 1+ Peripheral Pulses WNL: No Peripheral Pulses: Left Doralis Pedis: 1+, Right Dorsalis Pedis: 1+ Integumentary: Yes: Venous Stasis Changes, Other (chronic hyperpigmented induration of LEs from feet to mid-thighs) Neurological: Yes: Alert, Oriented, Weakness Psychiatric: Yes: Alert, Oriented Labs: CBC, BMP 05/07/16 05:35 05/07/16 05:35 INR, PTT INR 2.68 (0.82-1.09) H D 05/01/16 16:20 Abnormal Lab Results 05/07/16 05/07/16 05:35 05:35 WBC 11.3 H MCHC 31.8 L RDW 16.4 H Chloride 93 L Carbon Dioxide 38 H Anion Gap 5 L Creatinine 0.6 L Random Glucose 126 H - ....Imaging Chest X-ray: Image Reviewed (f/u Left basal pleural effusion/infiltrate) Problem List - Problems (1) Edema Code(s): R60.9 - EDEMA, UNSPECIFIED (2) Acute on chronic diastolic CHF (congestive heart failure) Assessment/Plan: Amlodipine d/abby; diltiazem CD started (HTN; tachycardic episodes). furosemide ( 60 mg IVP bid). TNI < 0.02 x 2. F/u BUN/Cr, electrolytes, daily weight, Is and Os. Code(s): I50.33 - ACUTE ON CHRONIC DIASTOLIC (CONGESTIVE) HEART FAILURE (3) COPD exacerbation Code(s): J44.1 - CHRONIC OBSTRUCTIVE PULMONARY DISEASE W (ACUTE) EXACERBATION (4) Depression Code(s): F32.9 - MAJOR DEPRESSIVE DISORDER, SINGLE EPISODE, UNSPECIFIED (5) HTN (hypertension) Assessment/Plan: Continue antihypertensives.(presently on furosemide; amlodipine d/abby, and diltiazem CD started). Code(s): I10 - ESSENTIAL (PRIMARY) HYPERTENSION (6) Dvt femoral (deep venous thrombosis) Assessment/Plan: Continue rivaroxaban. Code(s): I82.419 - ACUTE EMBOLISM AND THROMBOSIS OF UNSPECIFIED FEMORAL VEIN (7) Moderate to severe pulmonary hypertension Code(s): I27.2 - OTHER SECONDARY PULMONARY HYPERTENSION (8) Hypercapnic respiratory failure Assessment/Plan: Steroids, antibiotics, O2, and bronchodilators per pulmonology. Code(s): J96.92 - RESPIRATORY FAILURE, UNSPECIFIED WITH HYPERCAPNIA Qualifiers : Chronicity: acute on chronic Qualified Code(s): J96.22 - Acute and chronic respiratory failure with hypercapnia (9) Morbid obesity Code(s): E66.01 - MORBID (SEVERE) OBESITY DUE TO EXCESS CALORIES Qualifiers: Obesity type: due to excess calories Qualified Code(s): E66.01 - Morbid (severe) obesity due to excess calories (10) Obstructive apnea Assessment/Plan: CPAP per laundry clerk. Code(s): G47.33 - OBSTRUCTIVE SLEEP APNEA (ADULT) (PEDIATRIC) (11) Glaucoma Assessment/Plan: on Timoptic. Code(s): H40.9 - UNSPECIFIED GLAUCOMA
--- NOTE | 2016-05-07 17:11 | PN ---
Physical Exam: SUBJECTIVE: Patient seen and examined. He doesn't have any complaints. he denies chest pain, palpitations. He would like to have bariatric surgery. OBJECTIVE: Vital Signs Period Temp Pulse Resp BP Sys/Woodall Pulse Ox Last 24 Hr 97.6 F-98.6 F 83-115 18-28 122-143/50-93 93-97 GENERAL: The patient is awake, alert, and fully oriented, in no acute distress. HEAD: Normal with no signs of trauma. EYES: PERRL, extraocular movements intact, sclera anicteric, conjunctiva clear. No ptosis. ENT: Ears normal, nares patent, oropharynx clear without exudates, moist mucous membranes. NECK: Trachea midline, full range of motion, supple. LUNGS: Breath sounds equal, diminished bilaterally, no wheezes, no crackles, no accessory muscle use. HEART: Regular rate and rhythm, S1, S2 without murmur, rub or gallop. ABDOMEN: Obese, soft, nontender, nondistended, normoactive bowel sounds, no guarding, no rebound, no hepatosplenomegaly, no masses. EXTREMITIES: 2+ pulses, warm, well-perfused, no edema. NEUROLOGICAL: Cranial nerves II through XII grossly intact. Normal speech, gait not observed. PSYCH: Normal mood, normal affect. SKIN: Warm, dry, normal turgor, no rashes or lesions noted Laboratory Results - last 24 hr 05/07/16 05/07/16 05:35 05:35 WBC 11.3 H RBC 4.61 Hgb 13.3 Hct 41.8 MCV 90.8 MCHC 31.8 L RDW 16.4 H Plt Count 264 MPV 8.0 Sodium 136 Potassium 4.6 Chloride 93 L Carbon Dioxide 38 H Anion Gap 5 L BUN 17 D Creatinine 0.6 L Random Glucose 126 H Calcium 8.7 Active Medications Generic Name Dose Route Start Last Admin Trade Name Freq PRN Reason Stop Dose Admin Acetaminophen 650 mg 05/06/16 19:19 Tylenol - PO Q4H PRN FEVER OR PAIN Albuterol/Ipratropium 1 amp 05/06/16 19:19 Duoneb - NEB Q6H PRN SHORTNESS OF BREATH Albuterol/Ipratropium 1 amp 05/07/16 00:00 05/07/16 11:45 Duoneb - NEB 1 amp QIDR PALLAVI Administration Amlodipine Besylate 5 mg 05/07/16 10:00 05/07/16 10:31 Norvasc - PO 5 mg DAILY PALLAVI Administration Atorvastatin Calcium 10 mg 05/06/16 22:00 05/06/16 21:35 Lipitor - PO 10 mg HS PALLAVI Administration Furosemide 60 mg 05/07/16 06:00 05/07/16 13:15 Lasix - PO 60 mg BIDLASIX PALLAVI Administration Methimazole 10 mg 05/07/16 10:00 05/07/16 13:15 Tapazole - PO 10 mg DAILY PALLAVI Administration Methylprednisolone Sodium Succinate 40 mg 05/06/16 22:00 05/07/16 10:32 Solu-Medrol - IVPB 40 mg BID PALLAVI Administration Multivitamins 1 each 05/07/16 10:00 05/07/16 13:14 Total B With C - PO 1 each DAILY PALLAVI Administration Multivitamins/Minerals/Vitamin C 1 tab 05/07/16 10:00 05/07/16 10:31 Tab-A-Vit - PO 1 tab DAILY PALLAVI Administration Pantoprazole Sodium 20 mg 05/07/16 10:00 05/07/16 10:31 Protonix - PO 20 mg DAILY PALLAVI Administration Rivaroxaban 20 mg 05/07/16 10:00 05/07/16 10:31 Xarelto - PO 20 mg DAILY PALLAVI Administration Fluticasone/Salmeterol 1 puff 05/06/16 22:00 05/07/16 10:32 Advair 100mcg/50mcg - IH 1 puff BID PALLAVI Administration Timolol Maleate 1 drop 05/07/16 10:00 Timoptic 0.5% OU DAILY PALLAVI ASSESSMENT/PLAN: 45yM with morbid obesity, BONY, COPD-emphysema, diastolic CHF, anemia, UGI bleed , HTN, hyperthyroid, gluacoma, DVT, kidney stones and hiatal hernia, recent hospitalization for COPD exacerbation, intubated presents with SOB x 4 days. He is being admitted for acute on chronic respiratory failure due to COPD exacerbation. He is admitted to ICU. acute on chronic respiratory failure due to COPD exacerbation: -on Bi-Pap at night -will continue steroids BID today -WBC elevated today, probably due to steroid use -Pneumonia r/o at this moment -duonebs standing and PRN Hypertension: -Norvasc 5 mg Daily -the pt was not on any hypertensive meds in the past diastolic CHF: -cont home Lasix 60 mg BID -no acute exacerbation now -still negative I&O in past 24 hrs -last ECHO in 2015 was nl, nl EF Hyperlipidemia - cont home Lipitor chronic pain - cont home Tramadol PRN only DVT PPX: - continue Xarelto F/E/N; No/No changes/Low sodium diet Problem List - Problems (1) Hypercapnic respiratory failure Code(s): J96.92 - RESPIRATORY FAILURE, UNSPECIFIED WITH HYPERCAPNIA Qualifiers : Qualified Code(s): J96.22 - Acute and chronic respiratory failure with hypercapnia (2) Hypoxemia Code(s): R09.02 - HYPOXEMIA (3) Morbid obesity Code(s): E66.01 - MORBID (SEVERE) OBESITY DUE TO EXCESS CALORIES Qualifiers: Qualified Code(s): E66.01 - Morbid (severe) obesity due to excess calories (4) Obstructive apnea Code(s): G47.33 - OBSTRUCTIVE SLEEP APNEA (ADULT) (PEDIATRIC) Visit type - Emergency Visit Emergency Visit: Yes ED Registration Date: 05/01/16 Care time: The patient presented to the Emergency Department on the above date and was hospitalized for further evaluation of their emergent condition. - New Patient This patient is new to me today: No - Critical Care Critical Care patient: No - Discharge Referral Referred to [facility] Med P.C.: No
[2016-05-07] MEDS: ATORVASTATIN CA 10 MG TABLET (FP) PO SCH (22:30)
[2016-05-08] MEDS: FUROSEMIDE 40 MG TABLET (FP) PO SCH ×2 (06:33→15:05)
[2016-05-08] MEDS: ALBUTEROL SO4 2.5/IPRATROPIUM 0.5 INH SOL 3 ML VIAL.NEB. NEB SCH ×4 (06:35→23:58)
[2016-05-08 07:09] LABS: MCH 28.5 pg (25.7-33.7); MCHC 31.4 g/dl (32.0-35.9); MEAN CELL VOLUME 90.7 fl (80-96); MEAN PLT VOLUME 7.7 fl (7.5-11.1); PLATELET COUNT 254 K/MM3 (134-434); WHITE BLOOD COUNT 11.3 K/mm3 (4.0-10.0)
[2016-05-08 07:38] LABS: CALCIUM 8.9 mg/dL (8.5-10.1); CREATININE 0.7 mg/dL (0.7-1.3)
[2016-05-08] MEDS: TIMOLOL 0.5% OPHTHALMIC SOL 5 ML BOTTLE OU SCH (10:00)
[2016-05-08] MEDS ORDERED: PT OWN MED DRAWER 7, Y5N ONE ×2 (10:34→20:48)
[2016-05-08] MEDS: FLUTICASONE/SALMETEROL 100 MCG/50 MCG DISKUS IH SCH ×2 (10:48→21:02)
[2016-05-08] MEDS: PANTOPRAZOLE 20 MG TABLET (FP) PO SCH (10:49)
[2016-05-08] MEDS: METHIMAZOLE 10 MG TABLET (FP) PO SCH (10:50)
[2016-05-08] MEDS: MULTIVITAMINS (DAILY MVI) TABLET (FP) PO SCH (10:50)
[2016-05-08] MEDS: methylPREDNISolone NA SUCC 40 MG/1 ML VIAL IVPB SCH ×2 (10:50→21:02)
[2016-05-08] MEDS: RIVAROXABAN 20 MG TABLET PO SCH (10:50)
[2016-05-08] MEDS: VITAMIN B COMPLEX W/C COMBO TABLET (FP) PO SCH (10:51)
--- NOTE | 2016-05-08 11:54 | PN ---
Progress Note, Physician History of Present Illness: This is a 45 year old black male with a past medical history of morbid obesity, BONY, COPD-emphysema, diastolic CHF, anemia, UGI bleed, HTN, hyperthyroid, gluacoma, DVT, s/p substance abuse; kidney stones, and hiatal hernia, who presents with increasing SOB x 4 days. Denies fever, chills, increased cough. Reports that he just hasn't been able to breathe the same since his intubation in January. Denies chest pain, nausea, vomiting. Pt also states his CPAP is not working properly. ER course was notable for: (1) WBC 12.1 (2) BNP 714 - Current Medication List Current Medications: Active Medications Acetaminophen (Tylenol -) 650 mg PO Q4H PRN PRN Reason: FEVER OR PAIN Albuterol/Ipratropium (Duoneb -) 1 amp NEB Q6H PRN PRN Reason: SHORTNESS OF BREATH Albuterol/Ipratropium (Duoneb -) 1 amp NEB QIDR [facility] Last Admin: 05/08/16 06:35 Dose: 1 amp Atorvastatin Calcium (Lipitor -) 10 mg PO HS [facility] Last Admin: 05/07/16 22:30 Dose: 10 mg Diltiazem HCl (Cardizem Cd -) 120 mg PO DAILY [facility] Last Admin: 05/08/16 10:48 Dose: 120 mg Furosemide (Lasix -) 60 mg PO BIDLASIX [facility] Last Admin: 05/08/16 06:33 Dose: 60 mg Methimazole (Tapazole -) 10 mg PO DAILY [facility] Last Admin: 05/08/16 10:50 Dose: 10 mg Methylprednisolone Sodium Succinate (Solu-Medrol -) 40 mg IVPB BID [facility] Last Admin: 05/08/16 10:50 Dose: 40 mg Multivitamins (Total B With C -) 1 each PO DAILY [facility] Last Admin: 05/08/16 10:51 Dose: 1 each Multivitamins/Minerals/Vitamin C (Tab-A-Vit -) 1 tab PO DAILY [facility] Last Admin: 05/08/16 10:50 Dose: 1 tab Pantoprazole Sodium (Protonix -) 20 mg PO DAILY [facility] Last Admin: 05/08/16 10:49 Dose: 20 mg Rivaroxaban (Xarelto -) 20 mg PO DAILY [facility] Last Admin: 05/08/16 10:50 Dose: 20 mg Fluticasone/Salmeterol (Advair 100mcg/50mcg -) 1 puff IH BID [facility] Last Admin: 05/08/16 10:48 Dose: Not Given Timolol Maleate (Timoptic 0.5%) 1 drop OU DAILY [facility] Last Admin: 05/07/16 12:00 Dose: Not Given - Objective Vital Signs: Vital Signs Temperature 98.1 F 05/08/16 01:00 Pulse Rate 83 05/08/16 06:24 Respiratory Rate 05/08/16 06:24 Blood Pressure 131/83 05/08/16 06:24 O2 Sat by Pulse Oximetry (%) 98 05/07/16 21:00 Eyes: Yes: WNL, Conjunctiva Clear, EOM Intact HENT: Yes: WNL, Atraumatic, Normocephalic Neck: Yes: WNL, Supple, Trachea Midline Cardiovascular: Yes: WNL, Regular Rate and Rhythm Respiratory: Yes: WNL, Regular, CTA Bilaterally Gastrointestinal: Yes: WNL, Normal Bowel Sounds Genitourinary: Yes: WNL Musculoskeletal: Yes: WNL Extremities: Yes: WNL Edema: No Integumentary: Yes: WNL Neurological: Yes: WNL, Alert, Oriented ...Motor Strength: WNL Psychiatric: Yes: WNL Labs: CBC, BMP 05/08/16 05:35 05/08/16 05:35 INR, PTT INR 2.68 (0.82-1.09) H D 05/01/16 16:20 Assessment/Plan - Problems (1) Edema Code(s): R60.9 - EDEMA, UNSPECIFIED (2) Acute on chronic diastolic CHF (congestive heart failure) Assessment/Plan: Amlodipine d/abby; diltiazem CD started (HTN; tachycardic episodes). furosemide ( 60 mg IVP bid). TNI < 0.02 x 2. F/u BUN/Cr, electrolytes, daily weight, Is and Os. Code(s): I50.33 - ACUTE ON CHRONIC DIASTOLIC (CONGESTIVE) HEART FAILURE (3) COPD exacerbation Code(s): J44.1 - CHRONIC OBSTRUCTIVE PULMONARY DISEASE W (ACUTE) EXACERBATION (4) Depression Code(s): F32.9 - MAJOR DEPRESSIVE DISORDER, SINGLE EPISODE, UNSPECIFIED (5) HTN (hypertension) Assessment/Plan: Continue antihypertensives.(presently on furosemide; amlodipine d/abby, and diltiazem CD started). Code(s): I10 - ESSENTIAL (PRIMARY) HYPERTENSION (6) Dvt femoral (deep venous thrombosis) Assessment/Plan: Continue rivaroxaban. Code(s): I82.419 - ACUTE EMBOLISM AND THROMBOSIS OF UNSPECIFIED FEMORAL VEIN (7) Moderate to severe pulmonary hypertension Code(s): I27.2 - OTHER SECONDARY PULMONARY HYPERTENSION (8) Hypercapnic respiratory failure Assessment/Plan: Steroids, antibiotics, O2, and bronchodilators per pulmonology. Code(s): J96.92 - RESPIRATORY FAILURE, UNSPECIFIED WITH HYPERCAPNIA Qualifiers : Chronicity: acute on chronic Qualified Code(s): J96.22 - Acute and chronic respiratory failure with hypercapnia (9) Morbid obesity Code(s): E66.01 - MORBID (SEVERE) OBESITY DUE TO EXCESS CALORIES Qualifiers: Obesity type: due to excess calories Qualified Code(s): E66.01 - Morbid (severe) obesity due to excess calories (10) Obstructive apnea Assessment/Plan: CPAP per instrumentation specialist. Code(s): G47.33 - OBSTRUCTIVE SLEEP APNEA (ADULT) (PEDIATRIC) (11) Glaucoma Assessment/Plan: on Timoptic. Code(s): H40.9 - UNSPECIFIED GLAUCOMA
--- NOTE | 2016-05-08 14:30 | CONSULT ---
Consult Consult Specialty:: Bariatric surgery Reason for Consultation:: Morbid obesity - History of Present Illness Chief Complaint: Difficulty breathing History of Present Illness: 45 male hospitalized for respiratory failure Asked to consult for evaluation of morbid obesity - History Source History Provided By: Patient, Medical Record Limitations to Obtaining History: No Limitations - Past Medical History Cardio/Vascular: Yes: CHF, Deep Vein Thrombosis, HTN, Hyperlipdemia, Other ( chronic peripheral edema) Pulmonary: Yes: Asthma, COPD, O2 Dependent, Pneumonia, Sleep Apnea, Other (BONY on bipap at night) Gastrointestinal: Yes: GI Bleed, Other (recurrent cellulitis of pannus. hernia per pt) Psych: Yes: Addictions Musculoskeletal: Yes: Chronic low back pain, Other (bilateral LE chronic edema and weakness) Endocrine: Yes: Hyperthyroidism, Other (morbid obesity thyroid goiter) Dermatology: Yes: Cellulitis, Other (chronic bilateral venostasis) Additional Medical History: BONY, morbid obesity, RUEXT DVT - Past Surgical History Past Surgical History: Yes: None - Alcohol/Substance Use Hx Alcohol Use: No History of Substance Use: reports: Cocaine - Smoking History Smoking history: Former smoker Have you smoked in the past 12 months: Yes Aproximately how many cigarettes per day: 3 If you are a former smoker, when did you quit?: 2015 (20+ pack year hx prior) - Social History Usual Living Arrangement: Alone ADL: Family Assistance (Mother moved in for some assistance) History of Recent Travel: No Home Medications - Allergies Allergies/Adverse Reactions: Allergies Allergy/AdvReac Type Severity Reaction Status Date / Time aspirin Allergy Verified 05/01/16 15:12 milk AdvReac Verified 05/01/16 15:12 mushroom Allergy Unknown Uncoded 05/01/16 15:12 TURKEY Allergy Uncoded 05/01/16 15:12 - Home Medications Home Medications: Ambulatory Orders Albuterol Sulfate Inhaler - [Ventolin HFA Inhaler -] 2 inh PO Q4H 05/10/15 Arformoterol Tartrate [Brovana -] 1 neb NEB BID 05/10/15 Ergocalciferol [Drisdol -] 50,000 unit PO WEEKLY 05/10/15 Furosemide [Lasix -] 60 mg PO BID 05/10/15 Methimazole 10 mg PO DAILY 05/10/15 Pantoprazole Sodium [Protonix -] 20 mg PO DAILY 05/10/15 Rivaroxaban [Xarelto -] 20 mg PO DAILY 05/10/15 Vitamin B Complex 1 each PO DAILY 05/10/15 Timolol 0.5% [Timoptic 0.5%] 1 drop OU DAILY drops 05/15/15 Atorvastatin Ca [Lipitor] 10 mg PO DAILY 09/06/15 Multivitamin [Poly-Vitamin] 1 each PO DAILY 09/06/15 Potassium Chloride [K-Dur -] 20 meq PO Q2D@1000 tablet.er 09/12/15 Prednisone [Deltasone -] 10 mg PO DAILY #30 tablet 11/08/15 Tramadol HCl [Ultram -] 50 mg PO BID #60 tablet MDD 100 mg 11/08/15 Family Disease History - Family Disease History Family Disease History: Heart Disease: Mother (PPM in her 60s (after fainting)) Review of Systems - Review of Systems Constitutional: denies: Chills, Fever Cardiovascular: denies: Chest Pain Respiratory: reports: SOB Gastrointestinal: denies: Abdominal Pain, Nausea, Vomiting Pain Intensity: 0 Physical Exam Vital Signs: Vital Signs Temperature 98.1 F 05/08/16 01:00 Pulse Rate 83 05/08/16 06:24 Respiratory Rate 20 05/08/16 06:24 Blood Pressure 131/83 05/08/16 06:24 O2 Sat by Pulse Oximetry (%) 98 05/07/16 21:00 Constitutional: Yes: Calm Cardiovascular: Yes: WNL Respiratory: Yes: Diminished Gastrointestinal: Yes: Soft, Abdomen, Obese. No: Tenderness, Rebound Neurological: Yes: Alert, Oriented Labs: CBC, BMP 05/08/16 05:35 05/08/16 05:35 Problem List - Problems (1) Morbid obesity with BMI of 50.0-59.9, adult Code(s): Z68.43 - BODY MASS INDEX (BMI) 50-59.9 , ADULT Assessment/Plan Morbid obesity Outpatient follow up for Bariatric Surgery evaluation
--- NOTE | 2016-05-08 20:23 | PN ---
Physical Exam: SUBJECTIVE: Patient seen and examined Continue having difficulty with his speech. OBJECTIVE: Vital Signs Period Temp Pulse Resp BP Sys/Woodall Pulse Ox Last 24 Hr 97.6 F-98.1 F 64-113 20-20 107-131/61-83 98 GENERAL: The patient is awake, alert, and fully oriented, in no acute distress. morbidly obese. HEAD: Normal with no signs of trauma. EYES: PERRL, extraocular movements intact, sclera anicteric, conjunctiva clear. ENT: Ears normal, oropharynx clear without exudates, moist mucous membranes. NECK: Trachea midline, full range of motion, supple. LUNGS: Breath sounds equal, decreased BS bilaterally, no wheezes, no crackles, no accessory muscle use. HEART: Regular rate and rhythm, S1, S2 without murmur, rub or gallop. ABDOMEN: Soft, nontender, nondistended, normoactive bowel sounds, no guarding, no rebound, no hepatosplenomegaly, no masses. EXTREMITIES: 2+ pulses, warm, well-perfused, no edema. NEUROLOGICAL: Cranial nerves II through XII grossly intact. Normal speech, gait not observed. PSYCH: Normal mood, normal affect. SKIN: Warm, dry, normal turgor, no rashes or lesions noted Laboratory Results - last 24 hr 05/08/16 05/08/16 05:35 05:35 WBC 11.3 H RBC 4.93 Hgb 14.1 Hct 44.7 MCV 90.7 MCHC 31.4 L RDW 16.0 H Plt Count 254 MPV 7.7 Sodium 138 Potassium 4.9 Chloride 92 L Carbon Dioxide 39 H Anion Gap 7 L BUN 21 H D Creatinine 0.7 Random Glucose 138 H Calcium 8.9 Active Medications Generic Name Dose Route Start Last Admin Trade Name Freq PRN Reason Stop Dose Admin Acetaminophen 650 mg 05/06/16 19:19 Tylenol - PO Q4H PRN FEVER OR PAIN Albuterol/Ipratropium 1 amp 05/06/16 19:19 Duoneb - NEB Q6H PRN SHORTNESS OF BREATH Albuterol/Ipratropium 1 amp 05/07/16 00:00 05/08/16 17:39 Duoneb - NEB 1 amp QIDR PALLAVI Administration Atorvastatin Calcium 10 mg 05/06/16 22:00 05/07/16 22:30 Lipitor - PO 10 mg HS PALLAVI Administration Diltiazem HCl 120 mg 05/08/16 10:00 05/08/16 10:48 Cardizem Cd - PO 120 mg DAILY PALLAVI Administration Furosemide 60 mg 05/07/16 06:00 05/08/16 15:05 Lasix - PO 60 mg BIDLASIX PALLAVI Administration Methimazole 10 mg 05/07/16 10:00 05/08/16 10:50 Tapazole - PO 10 mg DAILY PALLAVI Administration Methylprednisolone Sodium Succinate 40 mg 05/06/16 22:00 05/08/16 10:50 Solu-Medrol - IVPB 40 mg BID PALLAVI Administration Multivitamins 1 each 05/07/16 10:00 05/08/16 10:51 Total B With C - PO 1 each DAILY PALLAVI Administration Multivitamins/Minerals/Vitamin C 1 tab 05/07/16 10:00 05/08/16 10:50 Tab-A-Vit - PO 1 tab DAILY PALLAVI Administration Pantoprazole Sodium 20 mg 05/07/16 10:00 05/08/16 10:49 Protonix - PO 20 mg DAILY PALLAVI Administration Rivaroxaban 20 mg 05/07/16 10:00 05/08/16 10:50 Xarelto - PO 20 mg DAILY PALLAVI Administration Fluticasone/Salmeterol 1 puff 05/06/16 22:00 05/08/16 10:48 Advair 100mcg/50mcg - IH Not Given BID PALLAVI Timolol Maleate 1 drop 05/07/16 10:00 05/08/16 10:00 Timoptic 0.5% OU 1 drop DAILY PALLAVI Administration ASSESSMENT AND PLAN: Patient is 45 y/o man with h/o morbid obesity, BONY, COPD-emphysema, diastolic CHF, anemia, UGI bleed, HTN, hyperthyroid, gluacoma, DVT, kidney stones and hiatal hernia , recent intubation due to acute resp failure , who presented with SOb and was found to have acute on chronic resp failure due to copd exa. # Acute on chronic hypercapnic respiratory failure due to Acute COPD exacerbation s/p intubation and extubation improving on IV Steroids 40mg Bid, Duo-NEbs and advair continue. Off ICU now, improving. comfortable on NC 3liter continue # Hx of DVT: continue Xarelto # H/o Diastolic CHF .stable last echo in 2015 showed nL EF and LV size , continue lasix 60 mg po BID , I&O, daily weight # HTN: cont Norvasc and Lasix # hX OF hYPERTHYROIDISM continue Tapazole # Hx of HLP continue Lipitor # hypokalemia: resolved DVT Px: on Xarelto treatment Visit type - Emergency Visit Emergency Visit: Yes ED Registration Date: 05/01/16 Care time: The patient presented to the Emergency Department on the above date and was hospitalized for further evaluation of their emergent condition. - New Patient This patient is new to me today: No - Critical Care Critical Care patient: No - Discharge Referral Referred to [facility] Med P.C.: No
[2016-05-08] MEDS: ATORVASTATIN CA 10 MG TABLET (FP) PO SCH (21:02)
[2016-05-09] MEDS: FUROSEMIDE 40 MG TABLET (FP) PO SCH ×2 (06:39→15:01)
[2016-05-09] MEDS: ALBUTEROL SO4 2.5/IPRATROPIUM 0.5 INH SOL 3 ML VIAL.NEB. NEB SCH ×3 (06:40→18:18)
[2016-05-09] MEDS: PANTOPRAZOLE 20 MG TABLET (FP) PO SCH (09:50)
[2016-05-09] MEDS: MULTIVITAMINS (DAILY MVI) TABLET (FP) PO SCH (09:50)
[2016-05-09] MEDS: FLUTICASONE/SALMETEROL 100 MCG/50 MCG DISKUS IH SCH ×2 (09:50→22:49)
[2016-05-09] MEDS: METHIMAZOLE 10 MG TABLET (FP) PO SCH (09:50)
[2016-05-09] MEDS: RIVAROXABAN 20 MG TABLET PO SCH (09:50)
[2016-05-09] MEDS: TIMOLOL 0.5% OPHTHALMIC SOL 5 ML BOTTLE OU SCH (09:51)
[2016-05-09] MEDS: methylPREDNISolone NA SUCC 40 MG/1 ML VIAL IVPB SCH ×2 (09:51→22:49)
[2016-05-09] MEDS: VITAMIN B COMPLEX W/C COMBO TABLET (FP) PO SCH (09:51)
--- NOTE | 2016-05-09 10:11 | PN ---
Progress Note, Physician History of Present Illness: seen and examined today in nad. on bipap. no overnight events. no new complaints. - Current Medication List Current Medications: Active Medications Acetaminophen (Tylenol -) 650 mg PO Q4H PRN PRN Reason: FEVER OR PAIN Albuterol/Ipratropium (Duoneb -) 1 amp NEB Q6H PRN PRN Reason: SHORTNESS OF BREATH Albuterol/Ipratropium (Duoneb -) 1 amp NEB QIDR [facility] Last Admin: 05/09/16 06:40 Dose: 1 amp Atorvastatin Calcium (Lipitor -) 10 mg PO HS [facility] Last Admin: 05/08/16 21:02 Dose: 10 mg Diltiazem HCl (Cardizem Cd -) 120 mg PO DAILY [facility] Last Admin: 05/09/16 09:50 Dose: 120 mg Furosemide (Lasix -) 60 mg PO BIDLASIX [facility] Last Admin: 05/09/16 06:39 Dose: 60 mg Methimazole (Tapazole -) 10 mg PO DAILY [facility] Last Admin: 05/09/16 09:50 Dose: 10 mg Methylprednisolone Sodium Succinate (Solu-Medrol -) 40 mg IVPB BID [facility] Last Admin: 05/09/16 09:51 Dose: 40 mg Multivitamins (Total B With C -) 1 each PO DAILY [facility] Last Admin: 05/09/16 09:51 Dose: 1 each Multivitamins/Minerals/Vitamin C (Tab-A-Vit -) 1 tab PO DAILY [facility] Last Admin: 05/09/16 09:50 Dose: 1 tab Pantoprazole Sodium (Protonix -) 20 mg PO DAILY [facility] Last Admin: 05/09/16 09:50 Dose: 20 mg Rivaroxaban (Xarelto -) 20 mg PO DAILY [facility] Last Admin: 05/09/16 09:50 Dose: 20 mg Fluticasone/Salmeterol (Advair 100mcg/50mcg -) 1 puff IH BID [facility] Last Admin: 05/09/16 09:50 Dose: Not Given Timolol Maleate (Timoptic 0.5%) 1 drop OU DAILY [facility] Last Admin: 05/09/16 09:51 Dose: 1 drop - Objective Vital Signs: Vital Signs Temperature 97.9 F 05/09/16 08:07 Pulse Rate 87 05/09/16 08:07 Respiratory Rate 22 05/09/16 08:07 Blood Pressure 121/73 05/09/16 08:07 O2 Sat by Pulse Oximetry (%) 95 05/08/16 21:00 Constitutional: Yes: No Distress, Calm, Obese Eyes: Yes: Conjunctiva Clear, EOM Intact HENT: Yes: Atraumatic, Normocephalic Neck: Yes: WNL, Supple, Trachea Midline Cardiovascular: Yes: Regular Rate and Rhythm, S1, S2. No: Bradycardia, Tachycardia, Pulse Irregular, Bruit, JVD, Gallop, Murmur, Rub, S3, S4, Varicosities Respiratory: Yes: Regular, Diminished, On BiPap. No: Rales, Rhonchi, Wheezes Gastrointestinal: Yes: WNL, Normal Bowel Sounds, Soft. No: Distention, Tenderness Musculoskeletal: Yes: WNL Extremities: Yes: WNL Edema: Yes Edema: LLE: Trace, RLE: Trace Peripheral Pulses WNL: Yes Peripheral Pulses: Left Doralis Pedis: 2+, Right Dorsalis Pedis: 2+ Integumentary: Yes: Venous Stasis Changes Neurological: Yes: WNL, Alert, Oriented, Cran Nerves II-XII Intact ...Motor Strength: WNL Psychiatric: Yes: WNL, Alert, Oriented Labs: CBC, BMP 05/08/16 05:35 05/08/16 05:35 INR, PTT INR 2.68 (0.82-1.09) H D 05/01/16 16:20 - ....Imaging Chest X-ray: Report Reviewed, Image Reviewed EKG: Report Reviewed, Image Reviewed Other: Report Reviewed, Image Reviewed (tele-nsr, sinus tach, no sig arrhythmias recorded) Problem List - Problems (1) DVT (deep venous thrombosis) Code(s): I82.409 - ACUTE EMBOLISM AND THOMBOS UNSP DEEP VN UNSP LOWER EXTREMITY (2) Edema Code(s): R60.9 - EDEMA, UNSPECIFIED (3) Hypercapnic respiratory failure Code(s): J96.92 - RESPIRATORY FAILURE, UNSPECIFIED WITH HYPERCAPNIA Qualifiers : Chronicity: acute on chronic Qualified Code(s): J96.22 - Acute and chronic respiratory failure with hypercapnia (4) Morbid obesity Code(s): E66.01 - MORBID (SEVERE) OBESITY DUE TO EXCESS CALORIES Qualifiers: Obesity type: due to excess calories Qualified Code(s): E66.01 - Morbid (severe) obesity due to excess calories (5) Obstructive apnea Code(s): G47.33 - OBSTRUCTIVE SLEEP APNEA (ADULT) (PEDIATRIC) (6) Acute and chronic respiratory failure ([id number]) Code(s): J96.20 - ACUTE AND CHR RESP FAILURE, UNSP W HYPOXIA OR HYPERCAPNIA (7) Acute exacerbation of chronic obstructive pulmonary disease (COPD) Code(s): J44.1 - CHRONIC OBSTRUCTIVE PULMONARY DISEASE W (ACUTE) EXACERBATION (8) Acute on chronic diastolic CHF (congestive heart failure) Code(s): I50.33 - ACUTE ON CHRONIC DIASTOLIC (CONGESTIVE) HEART FAILURE (9) HTN (hypertension) Code(s): I10 - ESSENTIAL (PRIMARY) HYPERTENSION (10) Moderate to severe pulmonary hypertension Code(s): I27.2 - OTHER SECONDARY PULMONARY HYPERTENSION (11) NSVT (nonsustained ventricular tachycardia) Code(s): I47.2 - VENTRICULAR TACHYCARDIA (12) Pulmonary hypertension Code(s): I27.2 - OTHER SECONDARY PULMONARY HYPERTENSION Assessment/Plan 45 year old man with a history of morbid obesity, drew, htn, chronic diastolic CHF, severe COPD, DVT, substance abuse admitted with sob. SOB-multifactorial, AE COPD, acute on chronic diastolic CHF -currently overall euvolemic -cont po Lasix currently receiving 60mg po bid -labs yesterday trending towards intravascular depletion, may need to decrease Lasix dose -otherwise receiving tx for AE COPD as per pulm Tachycardia-nsr, sinus tach on tele -cont cardizem at current dose -ok to dc tele HTN-adequately controlled -cont current medical regimen DVT -on Xarelto
--- NOTE | 2016-05-09 11:03 | PN ---
Progress Note, Physician History of Present Illness: pulmonary alert,comfortable nad on nasal o2 ,sat 98% - Current Medication List Current Medications: Active Medications Acetaminophen (Tylenol -) 650 mg PO Q4H PRN PRN Reason: FEVER OR PAIN Albuterol/Ipratropium (Duoneb -) 1 amp NEB Q6H PRN PRN Reason: SHORTNESS OF BREATH Albuterol/Ipratropium (Duoneb -) 1 amp NEB QIDR [facility] Last Admin: 05/09/16 06:40 Dose: 1 amp Atorvastatin Calcium (Lipitor -) 10 mg PO HS [facility] Last Admin: 05/08/16 21:02 Dose: 10 mg Diltiazem HCl (Cardizem Cd -) 120 mg PO DAILY [facility] Last Admin: 05/09/16 09:50 Dose: 120 mg Furosemide (Lasix -) 60 mg PO BIDLASIX [facility] Last Admin: 05/09/16 06:39 Dose: 60 mg Methimazole (Tapazole -) 10 mg PO DAILY [facility] Last Admin: 05/09/16 09:50 Dose: 10 mg Methylprednisolone Sodium Succinate (Solu-Medrol -) 40 mg IVPB BID [facility] Last Admin: 05/09/16 09:51 Dose: 40 mg Multivitamins (Total B With C -) 1 each PO DAILY [facility] Last Admin: 05/09/16 09:51 Dose: 1 each Multivitamins/Minerals/Vitamin C (Tab-A-Vit -) 1 tab PO DAILY [facility] Last Admin: 05/09/16 09:50 Dose: 1 tab Pantoprazole Sodium (Protonix -) 20 mg PO DAILY [facility] Last Admin: 05/09/16 09:50 Dose: 20 mg Rivaroxaban (Xarelto -) 20 mg PO DAILY [facility] Last Admin: 05/09/16 09:50 Dose: 20 mg Fluticasone/Salmeterol (Advair 100mcg/50mcg -) 1 puff IH BID [facility] Last Admin: 05/09/16 09:50 Dose: Not Given Timolol Maleate (Timoptic 0.5%) 1 drop OU DAILY [facility] Last Admin: 05/09/16 09:51 Dose: 1 drop - Objective Vital Signs: Vital Signs Temperature 97.9 F 05/09/16 08:07 Pulse Rate 87 05/09/16 08:07 Respiratory Rate 22 05/09/16 08:07 Blood Pressure 121/73 01/21/17 08:07 O2 Sat by Pulse Oximetry (%) 97 05/09/16 08:00 Constitutional: Yes: Calm, Obese Eyes: Yes: WNL HENT: Yes: WNL Neck: Yes: WNL Cardiovascular: Yes: Regular Rate and Rhythm, S1, S2 Respiratory: Yes: Diminished Gastrointestinal: Yes: WNL Extremities: Yes: WNL Edema: Yes Labs: CBC, BMP 05/08/16 05:35 05/08/16 05:35 INR, PTT INR 2.68 (0.82-1.09) H D 05/01/16 16:20 Problem List - Problems (1) Hypoxemia Code(s): R09.02 - HYPOXEMIA (2) Morbid obesity with BMI of 50.0-59.9, adult Code(s): Z68.43 - BODY MASS INDEX (BMI) 50-59.9 , ADULT (3) Acute and chronic respiratory failure ([id number]) Code(s): J96.20 - ACUTE AND CHR RESP FAILURE, UNSP W HYPOXIA OR HYPERCAPNIA (4) Acute exacerbation of chronic obstructive pulmonary disease (COPD) Code(s): J44.1 - CHRONIC OBSTRUCTIVE PULMONARY DISEASE W (ACUTE) EXACERBATION (5) Acute on chronic diastolic CHF (congestive heart failure) Code(s): I50.33 - ACUTE ON CHRONIC DIASTOLIC (CONGESTIVE) HEART FAILURE (6) COPD exacerbation Code(s): J44.1 - CHRONIC OBSTRUCTIVE PULMONARY DISEASE W (ACUTE) EXACERBATION (7) Moderate to severe pulmonary hypertension Code(s): I27.2 - OTHER SECONDARY PULMONARY HYPERTENSION (8) Morbid (severe) obesity due to excess calories Code(s): E66.01 - MORBID (SEVERE) OBESITY DUE TO EXCESS CALORIES (9) Pulmonary hypertension Code(s): I27.2 - OTHER SECONDARY PULMONARY HYPERTENSION (10) Acute on chronic respiratory failure with hypoxia and hypercapnia Code(s): J96.21 - ACUTE AND CHRONIC RESPIRATORY FAILURE WITH HYPOXIA J96.22 - ACUTE AND CHRONIC RESPIRATORY FAILURE WITH HYPERCAPNIA Assessment/Plan ASSESSMENT AND PLAN: Acute on Chronic Hypoxic and Hypercapneic Respiratory Failure improving Acute COPD Exacerbation improving r/o Acute on Chronic LV Diastolic Dysfunction Morbid Obesity BONY/OHS h/o DVT - BIPAP, adjusted to home settings of - medrol taper - inhaled bronchodilators - o2 to keep SpO2 88-92% to avoid worsening V/Q mismatch - lasix - monitor urine output, creatinine - anticoagulation - DVT/GI prophylaxis DR COE
--- NOTE | 2016-05-09 18:34 | PN ---
Physical Exam: SUBJECTIVE: Patient seen and examined Patient's speech is better with no acute distress. on 3l oxygen. OBJECTIVE: Vital Signs Temperature 97.9 F 05/09/16 08:07 Pulse Rate 87 05/09/16 08:07 Respiratory Rate 22 05/09/16 08:07 Blood Pressure 121/73 05/09/16 08:07 O2 Sat by Pulse Oximetry (%) 97 05/09/16 18:17 GENERAL: The patient is awake, alert, and fully oriented, in no acute distress. morbidly obese. HEAD: Normal with no signs of trauma. EYES: PERRL, extraocular movements intact, sclera anicteric, conjunctiva clear. ENT: Ears normal, oropharynx clear without exudates, moist mucous membranes. NECK: Trachea midline, full range of motion, supple. LUNGS: Breath sounds equal, decreased BS bilaterally, no wheezes, no crackles, no accessory muscle use. HEART: Regular rate and rhythm, S1, S2 without murmur, rub or gallop. ABDOMEN: Soft, nontender, nondistended, normoactive bowel sounds, no guarding, no rebound, no hepatosplenomegaly, no masses. EXTREMITIES: 2+ pulses, warm, well-perfused, no edema. NEUROLOGICAL: Cranial nerves II through XII grossly intact. Normal speech, gait not observed. PSYCH: Normal mood, normal affect. SKIN: Warm, dry, normal turgor, no rashes or lesions noted CBCD WBC 11.3 K/mm3 (4.0-10.0) H 05/08/16 05:35 RBC 4.93 M/mm3 (4.00-5.60) 05/08/16 05:35 Hgb 14.1 GM/dL (11.7-16.9) 05/08/16 05:35 Hct 44.7 % (35.4-49) 05/08/16 05:35 MCV 90.7 fl (80-96) 05/08/16 05:35 MCHC 31.4 g/dl (32.0-35.9) L 05/08/16 05:35 RDW 16.0 % (11.9-15.9) H 05/08/16 05:35 Plt Count 254 K/MM3 (134-434) 05/08/16 05:35 MPV 7.7 fl (7.5-11.1) 05/08/16 05:35 CMP Sodium 138 mmol/L (136-145) 05/08/16 05:35 Potassium 4.9 mmol/L (3.5-5.1) 05/08/16 05:35 Chloride 92 mmol/L (98-107) L 05/08/16 05:35 Carbon Dioxide 39 mmol/L (21-32) H 05/08/16 05:35 Anion Gap 7 (8-16) L 05/08/16 05:35 BUN 21 mg/dL (7-18) H D 05/08/16 05:35 Creatinine 0.7 mg/dL (0.7-1.3) 05/08/16 05:35 Creat Clearance w eGFR > 60 (>60) 05/02/16 05:20 Random Glucose 138 mg/dL (74-106) H 05/08/16 05:35 Calcium 8.9 mg/dL (8.5-10.1) 05/08/16 05:35 Total Bilirubin 0.9 mg/dL (0.2-1.0) D 05/02/16 05:20 AST 18 U/L (15-37) 05/02/16 05:20 ALT 13 U/L (12-78) 05/02/16 05:20 Alkaline Phosphatase 113 U/L (45-117) 05/02/16 05:20 Total Protein 7.3 g/dl (6.4-8.2) 05/02/16 05:20 Albumin 3.5 g/dl (3.4-5.0) 05/02/16 05:20 CARDIAC ENZYMES Creatine Kinase 33 IU/L (39-308) L 05/01/16 22:30 Troponin I < 0.02 ng/ml (0.00-0.05) 05/01/16 22:30 Active Medications Generic Name Dose Route Start Last Admin Trade Name Freq PRN Reason Stop Dose Admin Acetaminophen 650 mg 05/06/16 19:19 Tylenol - PO Q4H PRN FEVER OR PAIN Albuterol/Ipratropium 1 amp 05/06/16 19:19 Duoneb - NEB Q6H PRN SHORTNESS OF BREATH Albuterol/Ipratropium 1 amp 05/07/16 00:00 05/09/16 18:18 Duoneb - NEB 1 amp QIDR PALLAVI Administration Atorvastatin Calcium 10 mg 05/06/16 22:00 05/08/16 21:02 Lipitor - PO 10 mg HS PALLAVI Administration Diltiazem HCl 120 mg 05/08/16 10:00 05/09/16 09:50 Cardizem Cd - PO 120 mg DAILY PALL[facility]I Administration Furosemide 60 mg 05/07/16 06:00 05/09/16 15:01 Lasix - PO 60 mg BIDLASIX PALLAVI Administration Methimazole 10 mg 05/07/16 10:00 05/09/16 09:50 Tapazole - PO 10 mg DAILY [facility] Administration Methylprednisolone Sodium Succinate 40 mg 05/06/16 22:00 05/09/16 09:51 Solu-Medrol - IVPB 40 mg BID PALLAVI Administration Multivitamins 1 each 05/07/16 10:00 05/09/16 09:51 Total B With C - PO 1 each DAILY [facility] Administration Multivitamins/Minerals/Vitamin C 1 tab 05/07/16 10:00 05/09/16 09:50 Tab-A-Vit - PO 1 tab DAILY [facility] Administration Pantoprazole Sodium 20 mg 05/07/16 10:00 05/09/16 09:50 Protonix - PO 20 mg DAILY [facility] Administration Rivaroxaban 20 mg 05/07/16 10:00 05/09/16 09:50 Xarelto - PO 20 mg DAILY [facility] Administration Fluticasone/Salmeterol 1 puff 05/06/16 22:00 05/09/16 09:50 Advair 100mcg/50mcg - IH Not Given BID [facility]I Timolol Maleate 1 drop 05/07/16 10:00 05/09/16 09:51 Timoptic 0.5% OU 1 drop DAILY [facility] Administration ASSESSMENT AND PLAN: Patient is 45 y/o man with h/o morbid obesity, BONY, COPD-emphysema, diastolic CHF, anemia, UGI bleed, HTN, hyperthyroid, gluacoma, DVT, kidney stones and hiatal hernia , recent intubation due to acute resp failure , who presented with SOb and was found to have acute on chronic resp failure due to copd exa. # Acute on chronic hypercapnic respiratory failure due to Acute COPD exacerbation s/p intubation and extubation improving on IV Steroids 40mg Bid, Duo-NEbs and advair continue. Off ICU now, improving. comfortable on NC 3liter continue. Continue current regimen, patient will be discharge to rehab.to continue pulmonary rehab. and continue use of Bipap. # Hx of DVT: continue Xarelto # H/o Diastolic CHF stable last echo in 2015 showed nL EF and LV size ,continue lasix 60 mg po BID , I&O, daily weight # HTN: cont Norvasc and Lasix # hX OF hYPERTHYROIDISM continue Tapazole # Hx of HLP continue Lipitor # hypokalemia: resolved DVT Px: on Xarelto treatment if conitnues to be stable will dc the patient to rehab.in am Visit type - Emergency Visit Emergency Visit: Yes ED Registration Date: 05/01/16 Care time: The patient presented to the Emergency Department on the above date and was hospitalized for further evaluation of their emergent condition. - New Patient This patient is new to me today: No - Critical Care Critical Care patient: No - Discharge Referral Referred to [facility] No
[2016-05-09] MEDS: ATORVASTATIN CA 10 MG TABLET (FP) PO SCH (22:49)
[2016-05-10] MEDS: ALBUTEROL SO4 2.5/IPRATROPIUM 0.5 INH SOL 3 ML VIAL.NEB. NEB SCH ×4 (00:05→18:21)
[2016-05-10] MEDS: FUROSEMIDE 40 MG TABLET (FP) PO SCH ×2 (06:41→14:14)
[2016-05-10] MEDS: methylPREDNISolone NA SUCC 40 MG/1 ML VIAL IVPB SCH (09:57)
[2016-05-10] MEDS: VITAMIN B COMPLEX W/C COMBO TABLET (FP) PO SCH (09:58)
[2016-05-10] MEDS: FLUTICASONE/SALMETEROL 100 MCG/50 MCG DISKUS IH SCH ×2 (09:58→22:00)
[2016-05-10] MEDS: METHIMAZOLE 10 MG TABLET (FP) PO SCH (09:58)
[2016-05-10] MEDS: RIVAROXABAN 20 MG TABLET PO SCH (09:58)
[2016-05-10] MEDS: MULTIVITAMINS (DAILY MVI) TABLET (FP) PO SCH (09:58)
[2016-05-10] MEDS: PANTOPRAZOLE 20 MG TABLET (FP) PO SCH (09:58)
[2016-05-10] MEDS: TIMOLOL 0.5% OPHTHALMIC SOL 5 ML BOTTLE OU SCH (09:58)
--- NOTE | 2016-05-10 10:08 | PN ---
Progress Note, Physician History of Present Illness: seen and examined today in nad. no overnight events. no new complaints. states that he is overall feeling better. - Current Medication List Current Medications: Active Medications Acetaminophen (Tylenol -) 650 mg PO Q4H PRN PRN Reason: FEVER OR PAIN Albuterol/Ipratropium (Duoneb -) 1 amp NEB Q6H PRN PRN Reason: SHORTNESS OF BREATH Albuterol/Ipratropium (Duoneb -) 1 amp NEB QIDR [facility] Last Admin: 05/10/16 05:26 Dose: 1 amp Atorvastatin Calcium (Lipitor -) 10 mg PO HS [facility] Last Admin: 05/09/16 22:49 Dose: 10 mg Diltiazem HCl (Cardizem Cd -) 120 mg PO DAILY [facility] Last Admin: 05/10/16 09:58 Dose: 120 mg Furosemide (Lasix -) 60 mg PO BIDLASIX [facility] Last Admin: 05/10/16 06:41 Dose: 60 mg Methimazole (Tapazole -) 10 mg PO DAILY [facility] Last Admin: 05/10/16 09:58 Dose: 10 mg Methylprednisolone Sodium Succinate (Solu-Medrol -) 40 mg IVPB BID [facility] Last Admin: 05/10/16 09:57 Dose: 40 mg Multivitamins (Total B With C -) 1 each PO DAILY [facility] Last Admin: 05/10/16 09:58 Dose: 1 each Multivitamins/Minerals/Vitamin C (Tab-A-Vit -) 1 tab PO DAILY [facility] Last Admin: 05/10/16 09:58 Dose: 1 tab Pantoprazole Sodium (Protonix -) 20 mg PO DAILY [facility] Last Admin: 05/10/16 09:58 Dose: 20 mg Rivaroxaban (Xarelto -) 20 mg PO DAILY [facility] Last Admin: 05/10/16 09:58 Dose: 20 mg Fluticasone/Salmeterol (Advair 100mcg/50mcg -) 1 puff IH BID [facility] Last Admin: 05/10/16 09:58 Dose: Not Given Timolol Maleate (Timoptic 0.5%) 1 drop OU DAILY [facility] Last Admin: 05/10/16 09:58 Dose: 1 drop - Objective Vital Signs: Vital Signs Temperature 98.1 F 05/10/16 08:40 Pulse Rate 74 05/10/16 08:40 Respiratory Rate 22 05/10/16 08:40 Blood Pressure 132/66 05/10/16 08:40 O2 Sat by Pulse Oximetry (%) 95 05/09/16 21:00 Constitutional: Yes: No Distress, Calm, Obese Eyes: Yes: Conjunctiva Clear, EOM Intact, PERRL HENT: Yes: WNL, Atraumatic, Normocephalic Neck: Yes: WNL, Supple, Trachea Midline Cardiovascular: Yes: Regular Rate and Rhythm, S1, S2. No: Bradycardia, Tachycardia, Pulse Irregular, Bruit, JVD, Gallop, Murmur, Rub, S3, S4, Varicosities Respiratory: Yes: Regular, Diminished. No: Rales, Rhonchi, Wheezes Gastrointestinal: Yes: WNL, Normal Bowel Sounds, Soft. No: Distention, Tenderness Musculoskeletal: Yes: WNL Extremities: Yes: WNL Edema: Yes Edema: LLE: Trace, RLE: Trace Peripheral Pulses: Left Doralis Pedis: 2+, Right Dorsalis Pedis: 2+ Integumentary: Yes: WNL Neurological: Yes: WNL, Alert, Oriented, Cran Nerves II-XII Intact ...Motor Strength: WNL Psychiatric: Yes: WNL, Alert, Oriented Labs: CBC, BMP 05/08/16 05:35 05/08/16 05:35 INR, PTT INR 2.68 (0.82-1.09) H D 05/01/16 16:20 - ....Imaging Chest X-ray: Report Reviewed, Image Reviewed EKG: Report Reviewed, Image Reviewed Other: Report Reviewed, Image Reviewed (tele-sinus tach, no arrhythmias recorded ) Problem List - Problems (1) DVT (deep venous thrombosis) Code(s): I82.409 - ACUTE EMBOLISM AND THOMBOS UNSP DEEP VN UNSP LOWER EXTREMITY (2) Edema Code(s): R60.9 - EDEMA, UNSPECIFIED (3) Hypercapnic respiratory failure Code(s): J96.92 - RESPIRATORY FAILURE, UNSPECIFIED WITH HYPERCAPNIA Qualifiers : Chronicity: acute on chronic Qualified Code(s): J96.22 - Acute and chronic respiratory failure with hypercapnia (4) Morbid obesity Code(s): E66.01 - MORBID (SEVERE) OBESITY DUE TO EXCESS CALORIES Qualifiers: Obesity type: due to excess calories Qualified Code(s): E66.01 - Morbid (severe) obesity due to excess calories (5) Obstructive apnea Code(s): G47.33 - OBSTRUCTIVE SLEEP APNEA (ADULT) (PEDIATRIC) (6) Acute and chronic respiratory failure (kqsnt-[id number]) Code(s): J96.20 - ACUTE AND CHR RESP FAILURE, UNSP W HYPOXIA OR HYPERCAPNIA (7) Acute exacerbation of chronic obstructive pulmonary disease (COPD) Code(s): J44.1 - CHRONIC OBSTRUCTIVE PULMONARY DISEASE W (ACUTE) EXACERBATION (8) Acute on chronic diastolic CHF (congestive heart failure) Code(s): I50.33 - ACUTE ON CHRONIC DIASTOLIC (CONGESTIVE) HEART FAILURE (9) HTN (hypertension) Code(s): I10 - ESSENTIAL (PRIMARY) HYPERTENSION (10) Moderate to severe pulmonary hypertension Code(s): I27.2 - OTHER SECONDARY PULMONARY HYPERTENSION (11) NSVT (nonsustained ventricular tachycardia) Code(s): I47.2 - VENTRICULAR TACHYCARDIA (12) Pulmonary hypertension Code(s): I27.2 - OTHER SECONDARY PULMONARY HYPERTENSION Assessment/Plan 45 year old man with a history of morbid obesity, drew, htn, chronic diastolic CHF, severe COPD, DVT, substance abuse admitted with sob. SOB-multifactorial, AE COPD, acute on chronic diastolic CHF -currently overall euvolemic -cont Lasix 60mg po bid -labs were trending towards intravascular depletion, may need to decrease Lasix dose, consider repeating labs before discharge to establish baseline -otherwise receiving tx for AE COPD as per pulm Tachycardia-nsr, sinus tach on tele -cont cardizem at current dose -ok to dc tele HTN-adequately controlled -cont current medical regimen DVT -on Xarelto
--- NOTE | 2016-05-10 10:36 | PN ---
Progress Note, Physician History of Present Illness: pulmonary alert,nad,on nasal cannula - Current Medication List Current Medications: Active Medications Acetaminophen (Tylenol -) 650 mg PO Q4H PRN PRN Reason: FEVER OR PAIN Albuterol/Ipratropium (Duoneb -) 1 amp NEB Q6H PRN PRN Reason: SHORTNESS OF BREATH Albuterol/Ipratropium (Duoneb -) 1 amp NEB QIDR [facility] Last Admin: 05/10/16 05:26 Dose: 1 amp Atorvastatin Calcium (Lipitor -) 10 mg PO HS [facility] Last Admin: 05/09/16 22:49 Dose: 10 mg Diltiazem HCl (Cardizem Cd -) 120 mg PO DAILY [facility] Last Admin: 05/10/16 09:58 Dose: 120 mg Furosemide (Lasix -) 60 mg PO BIDLASIX [facility] Last Admin: 05/10/16 06:41 Dose: 60 mg Methimazole (Tapazole -) 10 mg PO DAILY [facility] Last Admin: 05/10/16 09:58 Dose: 10 mg Methylprednisolone Sodium Succinate (Solu-Medrol -) 40 mg IVPB BID [facility] Last Admin: 05/10/16 09:57 Dose: 40 mg Multivitamins (Total B With C -) 1 each PO DAILY [facility] Last Admin: 05/10/16 09:58 Dose: 1 each Multivitamins/Minerals/Vitamin C (Tab-A-Vit -) 1 tab PO DAILY [facility] Last Admin: 05/10/16 09:58 Dose: 1 tab Pantoprazole Sodium (Protonix -) 20 mg PO DAILY [facility] Last Admin: 05/10/16 09:58 Dose: 20 mg Rivaroxaban (Xarelto -) 20 mg PO DAILY [facility] Last Admin: 05/10/16 09:58 Dose: 20 mg Fluticasone/Salmeterol (Advair 100mcg/50mcg -) 1 puff IH BID [facility] Last Admin: 05/10/16 09:58 Dose: Not Given Timolol Maleate (Timoptic 0.5%) 1 drop OU DAILY [facility] Last Admin: 05/10/16 09:58 Dose: 1 drop - Objective Vital Signs: Vital Signs Temperature 98.1 F 05/10/16 08:40 Pulse Rate 74 05/10/16 08:40 Respiratory Rate 22 05/10/16 08:40 Blood Pressure 132/66 05/10/16 08:40 O2 Sat by Pulse Oximetry (%) 95 05/10/16 08:00 Constitutional: Yes: Calm, Obese Eyes: Yes: WNL HENT: Yes: WNL Neck: Yes: WNL Cardiovascular: Yes: Regular Rate and Rhythm, S1, S2 Respiratory: Yes: Diminished Gastrointestinal: Yes: WNL Extremities: Yes: WNL Edema: No Labs: CBC, BMP Problem List - Problems (1) Hypoxemia Code(s): R09.02 - HYPOXEMIA (2) Morbid obesity with BMI of 50.0-59.9, adult Code(s): Z68.43 - BODY MASS INDEX (BMI) 50-59.9 , ADULT (3) Acute and chronic respiratory failure (vmyld-mt-ldatxuk) Code(s): J96.20 - ACUTE AND CHR RESP FAILURE, UNSP W HYPOXIA OR HYPERCAPNIA (4) Acute exacerbation of chronic obstructive pulmonary disease (COPD) Code(s): J44.1 - CHRONIC OBSTRUCTIVE PULMONARY DISEASE W (ACUTE) EXACERBATION (5) Acute on chronic diastolic CHF (congestive heart failure) Code(s): I50.33 - ACUTE ON CHRONIC DIASTOLIC (CONGESTIVE) HEART FAILURE (6) COPD exacerbation Code(s): J44.1 - CHRONIC OBSTRUCTIVE PULMONARY DISEASE W (ACUTE) EXACERBATION (7) Moderate to severe pulmonary hypertension Code(s): I27.2 - OTHER SECONDARY PULMONARY HYPERTENSION (8) Morbid (severe) obesity due to excess calories Code(s): E66.01 - MORBID (SEVERE) OBESITY DUE TO EXCESS CALORIES (9) Pulmonary hypertension Code(s): I27.2 - OTHER SECONDARY PULMONARY HYPERTENSION (10) Acute on chronic respiratory failure with hypoxia and hypercapnia Code(s): J96.21 - ACUTE AND CHRONIC RESPIRATORY FAILURE WITH HYPOXIA J96.22 - ACUTE AND CHRONIC RESPIRATORY FAILURE WITH HYPERCAPNIA Assessment/Plan ASSESSMENT AND PLAN: Acute on Chronic Hypoxic and Hypercapneic Respiratory Failure improved Acute COPD Exacerbation improved r/o Acute on Chronic LV Diastolic Dysfunction Morbid Obesity BONY/OHS h/o DVT - BIPAP, adjusted to home settings of - Prednisone - inhaled bronchodilators - o2 to keep SpO2 88-92% to avoid worsening V/Q mismatch - lasix - monitor urine output, creatinine - anticoagulation - DVT/GI prophylaxis - pulmonary rehab post discharge DR COE
[2016-05-10] MEDS ORDERED: methylPREDNISolone NA SUCC 40 MG/1 ML VIAL IVPB SCH (10:37)
--- NOTE | 2016-05-10 11:56 | DS ---
Physical Exam: SUBJECTIVE: Patient seen and examined,. He is feeling better today, no complaints. Wants to go to [facility]. OBJECTIVE: Vital Signs Period Temp Pulse Resp BP Sys/Woodall Pulse Ox Last 24 Hr 97 F-98.2 F 74-112 18- 110-132/58-90 95-97 PHYSICAL EXAM GENERAL: The patient is awake, alert, and fully oriented, in no acute distress. HEAD: Normal with no signs of trauma. EYES: PERRL, extraocular movements intact, sclera anicteric, conjunctiva clear. ENT: Ears normal, nares patent, oropharynx clear without exudates, moist mucous membranes. NECK: Trachea midline, full range of motion, supple. LUNGS: Breath sounds equal, diminished breath sounds bilaterally, no wheezes, no crackles, no accessory muscle use. HEART: Regular rate and rhythm, S1, S2 without murmur, rub or gallop. ABDOMEN: Obese, soft, nontender, nondistended, normoactive bowel sounds, no guarding, no rebound, no hepatosplenomegaly, no masses. EXTREMITIES: 2+ pulses, warm, well-perfused, no edema. NEUROLOGICAL: Cranial nerves II through XII grossly intact. Normal speech, gait not observed. PSYCH: Normal mood, normal affect. SKIN: Warm, dry, normal turgor, no rashes or lesions noted. LABS HOSPITAL COURSE: Date of Admission:05/01/16 Date of Discharge: 05/10/16 Minutes to complete discharge: 50 Discharge Summary Reason For Visit: HYPERCAPNIC RESPIRATORY FAILURE Current Active Problems Acute on chronic respiratory failure with hypoxia and hypercapnia (Acute) DVT (deep venous thrombosis) (Acute) Edema (Acute) Hypercapnic respiratory failure (Acute) Hyperthyroidism (Acute) Hypoxemia (Acute) Morbid obesity (Acute) Morbid obesity with BMI of 50.0-59.9, adult (Acute) Obstructive apnea (Acute) Hospital Course: This is a 45 year old male with a past medical history of morbid obesity, BONY, COPD-emphysema, diastolic CHF, anemia, UGI bleed, HTN, hyperthyroid, gluacoma, DVT, kidney stones and hiatal hernia presents with increasing SOB x 4 days. Denies fever, chills, increased cough. Reports that he just hasn't been able to breathe the same since his intubation in January. Denies chest pain, nausea, vomiting. Pt also states his CPAP is not working properly. Hospital course: The pt was admitted to ICU for acutew respiratory failure/COPD exacerbation. ABG: pH 7.35, PCO2 70 at admission. We started Bi-Pap, Azithromycin, Nebulizers, Solu-medrol, Prednisone, monitoring ABG. We treated the pt for acute on CHF: Lasix. We also continued his home medications. We consulted Pulmonary and Cardiology and ID specialists. The pt clinically improved. He was transferred to telemetry for monitoring. He is [facility] to [facility] for [facility] treatment. He requires Bi-Pap art night and as needed. He agreed to f/u with for bariatric surgery. Condition: Improved - Instructions Diet, Activity, Other Instructions: Take your medications as prescribed. Take Prednisone 60 mg PO Daily. Use your Bi-Pap machine every night. And as needed during the day time. Follow up with your PCP in a week. If you start feeling shortness of breath, chest pain, palpitations, fever, chills, bleeding come to Emergency Room. Referrals: Wojciech Romano MD [Staff Physician] - Hunter De La Fuente MD [Staff Physician] - Lani Guzman MD [Primary Care Provider] - Disposition: RESIDENTIAL FACILITY - Home Medications Comprehensive Discharge Medication List: Ambulatory Orders Albuterol Sulfate Inhaler - [Ventolin HFA Inhaler -] 2 inh PO Q4H 05/10/15 Arformoterol Tartrate [Brovana -] 1 neb NEB BID 05/10/15 Ergocalciferol [Drisdol -] 50,000 unit PO WEEKLY 05/10/15 Furosemide [Lasix -] 60 mg PO BID 05/10/15 Methimazole 10 mg PO DAILY 05/10/15 Pantoprazole Sodium [Protonix -] 20 mg PO DAILY 05/10/15 Rivaroxaban [Xarelto -] 20 mg PO DAILY 05/10/15 Vitamin B Complex 1 each PO DAILY 05/10/15 Timolol 0.5% [Timoptic 0.5%] 1 drop OU DAILY drops 05/15/15 Atorvastatin Ca [Lipitor] 10 mg PO DAILY 09/06/15 Multivitamin [Poly-Vitamin] 1 each PO DAILY 09/06/15 Potassium Chloride [K-Dur -] 20 meq PO Q2D@1000 tablet.er 09/12/15 Tramadol HCl [Ultram -] 50 mg PO BID #60 tablet MDD 100 mg 11/08/15 Albuterol 2.5/Ipratropium 0.5 [Duoneb -] 1 amp NEB QIDR amp 05/10/16 Diltiazem Cd [Cardizem Cd -] 120 mg PO DAILY cap.cd.24h 05/10/16 Prednisone [Deltasone -] 60 mg PO DAILY tablet 05/10/16 Salmeterol/Fluticasone [Advair 100Mcg/50Mcg -] 1 puff IH BID inhaler 05/10/16 Problem List - Problems (1) Hypercapnic respiratory failure Code(s): J96.92 - RESPIRATORY FAILURE, UNSPECIFIED WITH HYPERCAPNIA Qualifiers : Chronicity: acute on chronic Qualified Code(s): J96.22 - Acute and chronic respiratory failure with hypercapnia (2) Hypoxemia Code(s): R09.02 - HYPOXEMIA (3) Morbid obesity Code(s): E66.01 - MORBID (SEVERE) OBESITY DUE TO EXCESS CALORIES Qualifiers: Obesity type: due to excess calories Qualified Code(s): E66.01 - Morbid (severe) obesity due to excess calories (4) Obstructive apnea Code(s): G47.33 - OBSTRUCTIVE SLEEP APNEA (ADULT) (PEDIATRIC) This patient is new to me today: No Emergency Visit: Yes ED Registration Date: 05/01/16 Care time: The patient presented to the Emergency Department on the above date and was hospitalized for further evaluation of their emergent condition. Critical Care patient: No - Discharge Referral Referred to [facility] No
--- NOTE | 2016-05-10 11:58 | PN ---
Teaching Attending Note Name of Resident: Brooklynn Roy ATTENDING PHYSICIAN STATEMENT I saw and evaluated the patient. I reviewed the resident's note and discussed the case with the resident. I agree with the resident's findings and plan as documented. SUBJECTIVE: Comfortable willing to go to rehab. no acute distress, no new complain, able to speak without any complication. OBJECTIVE: Vital Signs Temperature 98.1 F 05/10/16 08:40 Pulse Rate 74 05/10/16 08:40 Respiratory Rate 22 05/10/16 08:40 Blood Pressure 132/66 05/10/16 08:40 O2 Sat by Pulse Oximetry (%) 95 05/10/16 08:00 GENERAL: The patient is awake, alert, and fully oriented, in no acute distress. morbidly obese. HEAD: Normal with no signs of trauma. EYES: PERRL, extraocular movements intact, sclera anicteric, conjunctiva clear. ENT: Ears normal, oropharynx clear without exudates, moist mucous membranes. NECK: Trachea midline, full range of motion, supple. LUNGS: Breath sounds equal, decreased BS bilaterally, no wheezes, no crackles, no accessory muscle use. HEART: Regular rate and rhythm, S1, S2 without murmur, rub or gallop. ABDOMEN: Soft, nontender, nondistended, normoactive bowel sounds, no guarding, no rebound, no hepatosplenomegaly, no masses. EXTREMITIES: 2+ pulses, warm, well-perfused, no edema. NEUROLOGICAL: Cranial nerves II through XII grossly intact. Normal speech, gait not observed. PSYCH: Normal mood, normal affect. SKIN: Warm, dry, normal turgor, no rashes or lesions noted CBCD WBC 11.3 K/mm3 (4.0-10.0) H 05/08/16 05:35 RBC 4.93 M/mm3 (4.00-5.60) 05/08/16 05:35 Hgb 14.1 GM/dL (11.7-16.9) 05/08/16 05:35 Hct 44.7 % (35.4-49) 05/08/16 05:35 MCV 90.7 fl (80-96) 05/08/16 05:35 MCHC 31.4 g/dl (32.0-35.9) L 05/08/16 05:35 RDW 16.0 % (11.9-15.9) H 05/08/16 05:35 Plt Count 254 K/MM3 (134-434) 05/08/16 05:35 MPV 7.7 fl (7.5-11.1) 05/08/16 05:35 CMP Sodium 138 mmol/L (136-145) 05/08/16 05:35 Potassium 4.9 mmol/L (3.5-5.1) 05/08/16 05:35 Chloride 92 mmol/L (98-107) L 05/08/16 05:35 Carbon Dioxide 39 mmol/L (21-32) H 05/08/16 05:35 Anion Gap 7 (8-16) L 05/08/16 05:35 BUN 21 mg/dL (7-18) H D 05/08/16 05:35 Creatinine 0.7 mg/dL (0.7-1.3) 05/08/16 05:35 Creat Clearance w eGFR > 60 (>60) 05/02/16 05:20 Random Glucose 138 mg/dL (74-106) H 05/08/16 05:35 Calcium 8.9 mg/dL (8.5-10.1) 05/08/16 05:35 Total Bilirubin 0.9 mg/dL (0.2-1.0) D 05/02/16 05:20 AST 18 U/L (15-37) 05/02/16 05:20 ALT 13 U/L (12-78) 05/02/16 05:20 Alkaline Phosphatase 113 U/L (45-117) 05/02/16 05:20 Total Protein 7.3 g/dl (6.4-8.2) 05/02/16 05:20 Albumin 3.5 g/dl (3.4-5.0) 05/02/16 05:20 CARDIAC ENZYMES Creatine Kinase 33 IU/L (39-308) L 05/01/16 22:30 Troponin I < 0.02 ng/ml (0.00-0.05) 05/01/16 22:30 Current Medications Generic Name Dose Route Start Last Admin Trade Name Freq PRN Reason Stop Dose Admin Acetaminophen 650 mg 05/06/16 19:19 Tylenol - PO Q4H PRN FEVER OR PAIN Albuterol/Ipratropium 1 amp 05/06/16 19:19 Duoneb - NEB Q6H PRN SHORTNESS OF BREATH Albuterol/Ipratropium 1 amp 05/07/16 00:00 05/10/16 05:26 Duoneb - NEB 1 amp QIDR PALLAVI Administration Atorvastatin Calcium 10 mg 05/06/16 22:00 05/09/16 22:49 Lipitor - PO 10 mg HS PALLAVI Administration Diltiazem HCl 120 mg 05/08/16 10:00 05/10/16 09:58 Cardizem Cd - PO 120 mg DAILY PALLAVI Administration Furosemide 60 mg 05/07/16 06:00 05/10/16 06:41 Lasix - PO 60 mg BIDLASIX PALLAVI Administration Methimazole 10 mg 05/07/16 10:00 05/10/16 09:58 Tapazole - PO 10 mg DAILY PALLAVI Administration Methylprednisolone Sodium Succinate 30 mg 05/10/16 10:37 Solu-Medrol - IVPB 05/10/16 22:00 BID PALLAVI Multivitamins 1 each 05/07/16 10:00 05/10/16 09:58 Total B With C - PO 1 each DAILY PALLAVI Administration Multivitamins/Minerals/Vitamin C 1 tab 05/07/16 10:00 05/10/16 09:58 Tab-A-Vit - PO 1 tab DAILY PALLAVI Administration Pantoprazole Sodium 20 mg 05/07/16 10:00 05/10/16 09:58 Protonix - PO 20 mg DAILY PALLAVI Administration Prednisone 60 mg 05/11/16 10:00 Deltasone - PO DAILY PALLAVI Rivaroxaban 20 mg 05/07/16 10:00 05/10/16 09:58 Xarelto - PO 20 mg DAILY PALLAVI Administration Fluticasone/Salmeterol 1 puff 05/06/16 22:00 05/10/16 09:58 Advair 100mcg/50mcg - IH Not Given BID [facility] Timolol Maleate 1 drop 05/07/16 10:00 05/10/16 09:58 Timoptic 0.5% OU 1 drop DAILY PALLAVI Administration Medication Instructions Recorded Albuterol Sulfate Inhaler - 2 inh PO Q4H 05/10/15 [Ventolin HFA Inhaler -] Arformoterol Tartrate [Brovana -] 1 neb NEB BID 05/10/15 Ergocalciferol [Drisdol -] 50,000 unit PO WEEKLY 05/10/15 Furosemide [Lasix -] 60 mg PO BID 05/10/15 Methimazole 10 mg PO DAILY 05/10/15 Pantoprazole Sodium [Protonix -] 20 mg PO DAILY 05/10/15 Rivaroxaban [Xarelto -] 20 mg PO DAILY 05/10/15 Vitamin B Complex 1 each PO DAILY 05/10/15 Timolol 0.5% [Timoptic 0.5%] 1 drop OU DAILY drops 05/15/15 Atorvastatin Ca [Lipitor] 10 mg PO DAILY 09/06/15 Multivitamin [Poly-Vitamin] 1 each PO DAILY 09/06/15 Potassium Chloride [K-Dur -] 20 meq PO Q2D@1000 tablet.er 09/12/15 Tramadol HCl [Ultram -] 50 mg PO BID #60 tablet MDD 100 mg 11/08/15 Albuterol 2.5/Ipratropium 0.5 1 amp NEB QIDR amp 05/10/16 [Duoneb -] Diltiazem Cd [Cardizem Cd -] 120 mg PO DAILY cap.cd.24h 05/10/16 Prednisone [Deltasone -] 60 mg PO DAILY tablet 05/10/16 Salmeterol/Fluticasone [Advair 1 puff IH BID inhaler 05/10/16 100Mcg/50Mcg -] ASSESSMENT AND PLAN: Patient is 45 y/o man with h/o morbid obesity, BONY, COPD-emphysema, diastolic CHF, anemia, UGI bleed, HTN, hyperthyroid, gluacoma, DVT, kidney stones and hiatal hernia , recent intubation due to acute resp failure , who presented with SOb and was found to have acute on chronic resp failure due to copd exa. # s/p Acute on chronic hypercapnic respiratory failure due to Acute COPD exacerbation s/p intubation and extubation improving on IV Steroids 30mg Bid, last day today of IV will continue with po prednisone 60mg po daily. Duo-nebs and advair continue. Off ICU now, improving. comfortable on NC 3liter continue. Continue current regimen, patient will be discharge to rehab.to continue pulmonary rehab. and continue use of Bipap. at night and as needed during day time. # Hx of DVT: continue Xarelto # H/o Diastolic CHF stable last echo in 2015 showed nL EF and LV size ,continue lasix 60 mg po BID , I&O, daily weight # HTN: cont Norvasc and Lasix # hX OF hYPERTHYROIDISM continue Tapazole # Hx of HLP continue Lipitor # hypokalemia: resolved DVT Px: on Xarelto treatment for DVT continue
[2016-05-10] MEDS: ATORVASTATIN CA 10 MG TABLET (FP) PO SCH (22:18)
[2016-05-11] MEDS: FUROSEMIDE 40 MG TABLET (FP) PO SCH ×2 (06:36→14:37)
[2016-05-11 07:55] VITALS: BP 135/85; TEMP 98
[2016-05-11] MEDS: RIVAROXABAN 20 MG TABLET PO SCH (09:25)
[2016-05-11] MEDS: METHIMAZOLE 10 MG TABLET (FP) PO SCH (09:25)
[2016-05-11] MEDS: PANTOPRAZOLE 20 MG TABLET (FP) PO SCH (09:25)
[2016-05-11] MEDS: FLUTICASONE/SALMETEROL 100 MCG/50 MCG DISKUS IH SCH (09:26)
[2016-05-11] MEDS: MULTIVITAMINS (DAILY MVI) TABLET (FP) PO SCH (09:26)
[2016-05-11] MEDS: TIMOLOL 0.5% OPHTHALMIC SOL 5 ML BOTTLE OU SCH (09:26)
[2016-05-11] MEDS: VITAMIN B COMPLEX W/C COMBO TABLET (FP) PO SCH (09:26)
[2016-05-11 09:42] VITALS: PULSE 94
--- NOTE | 2016-05-11 09:56 | PN ---
Progress Note, Physician History of Present Illness: Pt alert NAD. Comfortable lying flat. - Current Medication List Current Medications: Active Medications Acetaminophen (Tylenol -) 650 mg PO Q4H PRN PRN Reason: FEVER OR PAIN Albuterol/Ipratropium (Duoneb -) 1 amp NEB Q6H PRN PRN Reason: SHORTNESS OF BREATH Albuterol/Ipratropium (Duoneb -) 1 amp NEB QIDR [facility] Last Admin: 05/11/16 00:00 Dose: 1 amp Atorvastatin Calcium (Lipitor -) 10 mg PO HS [facility] Last Admin: 05/10/16 22:18 Dose: 10 mg Diltiazem HCl (Cardizem Cd -) 120 mg PO DAILY [facility] Last Admin: 05/11/16 09:25 Dose: 120 mg Furosemide (Lasix -) 60 mg PO BIDLASIX [facility] Last Admin: 05/11/16 06:36 Dose: 60 mg Methimazole (Tapazole -) 10 mg PO DAILY [facility] Last Admin: 05/11/16 09:25 Dose: 10 mg Multivitamins (Total B With C -) 1 each PO DAILY [facility] Last Admin: 05/11/16 09:26 Dose: 1 each Multivitamins/Minerals/Vitamin C (Tab-A-Vit -) 1 tab PO DAILY [facility] Last Admin: 05/11/16 09:26 Dose: 1 tab Pantoprazole Sodium (Protonix -) 20 mg PO DAILY [facility] Last Admin: 05/11/16 09:25 Dose: 20 mg Prednisone (Deltasone -) 60 mg PO DAILY [facility] Last Admin: 05/11/16 09:25 Dose: 60 mg Rivaroxaban (Xarelto -) 20 mg PO DAILY [facility] Last Admin: 05/11/16 09:25 Dose: 20 mg Fluticasone/Salmeterol (Advair 100mcg/50mcg -) 1 puff IH BID [facility] Last Admin: 05/11/16 09:26 Dose: Not Given Timolol Maleate (Timoptic 0.5%) 1 drop OU DAILY [facility] Last Admin: 05/11/16 09:26 Dose: 1 drop - Objective Vital Signs: Vital Signs Temperature 98 F 05/11/16 07:54 Pulse Rate 94 H 05/11/16 09:42 Respiratory Rate 18 05/11/16 07:54 Blood Pressure 135/85 05/11/16 07:54 O2 Sat by Pulse Oximetry (%) 97 05/11/16 09:42 Constitutional: Yes: No Distress Eyes: No: Sclera Icterus HENT: Yes: Atraumatic, Normocephalic Neck: Yes: Supple, Trachea Midline Cardiovascular: Yes: Regular Rate and Rhythm. No: JVD Respiratory: Yes: CTA Bilaterally Gastrointestinal: Yes: Soft. No: Tenderness Edema: No Neurological: Yes: Alert, Oriented Labs: CBC, BMP 05/08/16 05:35 05/08/16 05:35 INR, PTT INR 2.68 (0.82-1.09) H D 05/01/16 16:20 Problem List - Problems (1) Acute and chronic respiratory failure ([id number]) Code(s): J96.20 - ACUTE AND CHR RESP FAILURE, UNSP W HYPOXIA OR HYPERCAPNIA (2) Obstructive apnea Code(s): G47.33 - OBSTRUCTIVE SLEEP APNEA (ADULT) (PEDIATRIC) (3) Morbid obesity with BMI of 50.0-59.9, adult Code(s): Z68.43 - BODY MASS INDEX (BMI) 50-59.9 , ADULT Assessment/Plan Aciute on Chronic Resp Failure; pt improving. COPD Morbid Obesity BONY Plan: Bipap at night and PRN IV Steroids Antibiotic Diuretic O2 to maintain SaO2 >90
[2016-05-11] MEDS ORDERED: predniSONE 20 MG TABLET (UD) PO SCH (10:00)
[2016-05-11] MEDS: ALBUTEROL SO4 2.5/IPRATROPIUM 0.5 INH SOL 3 ML VIAL.NEB. NEB SCH ×2 (11:18)
--- NOTE | 2016-05-11 12:15 | PN ---
Progress Note, Physician History of Present Illness: This is a 45 year old black male with a past medical history of morbid obesity, BONY, COPD-emphysema, diastolic CHF, anemia, UGI bleed, HTN, hyperthyroid, gluacoma, DVT, s/p substance abuse; kidney stones, and hiatal hernia, who presents with increasing SOB x 4 days. Denies fever, chills, increased cough. Reports that he just hasn't been able to breathe the same since his intubation in January. Denies chest pain, nausea, vomiting. Pt also states his CPAP is not working properly. ER course was notable for: (1) WBC 12.1 (2) BNP 714 - Current Medication List Current Medications: Active Medications Acetaminophen (Tylenol -) 650 mg PO Q4H PRN PRN Reason: FEVER OR PAIN Albuterol/Ipratropium (Duoneb -) 1 amp NEB Q6H PRN PRN Reason: SHORTNESS OF BREATH Albuterol/Ipratropium (Duoneb -) 1 amp NEB QIDR [facility] Last Admin: 05/11/16 11:18 Dose: 1 amp Atorvastatin Calcium (Lipitor -) 10 mg PO HS [facility] Last Admin: 05/10/16 22:18 Dose: 10 mg Diltiazem HCl (Cardizem Cd -) 120 mg PO DAILY [facility] Last Admin: 05/11/16 09:25 Dose: 120 mg Furosemide (Lasix -) 60 mg PO BIDLASIX [facility] Last Admin: 05/11/16 06:36 Dose: 60 mg Methimazole (Tapazole -) 10 mg PO DAILY [facility] Last Admin: 05/11/16 09:25 Dose: 10 mg Multivitamins (Total B With C -) 1 each PO DAILY [facility] Last Admin: 05/11/16 09:26 Dose: 1 each Multivitamins/Minerals/Vitamin C (Tab-A-Vit -) 1 tab PO DAILY [facility] Last Admin: 05/11/16 09:26 Dose: 1 tab Pantoprazole Sodium (Protonix -) 20 mg PO DAILY [facility] Last Admin: 05/11/16 09:25 Dose: 20 mg Prednisone (Deltasone -) 60 mg PO DAILY [facility] Last Admin: 05/11/16 09:25 Dose: 60 mg Rivaroxaban (Xarelto -) 20 mg PO DAILY [facility] Last Admin: 01/23/17 09:25 Dose: 20 mg Fluticasone/Salmeterol (Advair 100mcg/50mcg -) 1 puff IH BID [facility] Last Admin: 05/11/16 09:26 Dose: Not Given Timolol Maleate (Timoptic 0.5%) 1 drop OU DAILY [facility] Last Admin: 05/11/16 09:26 Dose: 1 drop - Objective Vital Signs: Vital Signs Temperature 98 F 05/11/16 07:54 Pulse Rate 94 H 05/11/16 09:42 Respiratory Rate 20 05/11/16 08:00 Blood Pressure 135/85 05/11/16 07:54 O2 Sat by Pulse Oximetry (%) 97 05/11/16 09:42 Eyes: Yes: WNL, Conjunctiva Clear, EOM Intact HENT: Yes: WNL, Atraumatic, Normocephalic Neck: Yes: WNL, Supple, Trachea Midline Cardiovascular: Yes: WNL, Regular Rate and Rhythm Respiratory: Yes: WNL, Regular, CTA Bilaterally Gastrointestinal: Yes: WNL, Normal Bowel Sounds Genitourinary: Yes: WNL Musculoskeletal: Yes: WNL Extremities: Yes: WNL Edema: No Integumentary: Yes: WNL Neurological: Yes: WNL, Alert, Oriented ...Motor Strength: WNL Psychiatric: Yes: WNL Labs: CBC, BMP 05/08/16 05:35 05/08/16 05:35 INR, PTT INR 2.68 (0.82-1.09) H D 05/01/16 16:20 Assessment/Plan - Problems (1) Edema Code(s): R60.9 - EDEMA, UNSPECIFIED (2) Acute on chronic diastolic CHF (congestive heart failure) Assessment/Plan: Amlodipine d/abby; diltiazem CD started (HTN; tachycardic episodes). furosemide ( 60 mg IVP bid). TNI < 0.02 x 2. F/u BUN/Cr, electrolytes, daily weight, Is and Os. Code(s): I50.33 - ACUTE ON CHRONIC DIASTOLIC (CONGESTIVE) HEART FAILURE (3) COPD exacerbation Code(s): J44.1 - CHRONIC OBSTRUCTIVE PULMONARY DISEASE W (ACUTE) EXACERBATION (4) Depression Code(s): F32.9 - MAJOR DEPRESSIVE DISORDER, SINGLE EPISODE, UNSPECIFIED (5) HTN (hypertension) Assessment/Plan: Continue antihypertensives.(presently on furosemide; amlodipine d/abby, and diltiazem CD started). Code(s): I10 - ESSENTIAL (PRIMARY) HYPERTENSION (6) Dvt femoral (deep venous thrombosis) Assessment/Plan: Continue rivaroxaban. Code(s): I82.419 - ACUTE EMBOLISM AND THROMBOSIS OF UNSPECIFIED FEMORAL VEIN (7) Moderate to severe pulmonary hypertension Code(s): I27.2 - OTHER SECONDARY PULMONARY HYPERTENSION (8) Hypercapnic respiratory failure Assessment/Plan: Steroids, antibiotics, O2, and bronchodilators per pulmonology. Code(s): J96.92 - RESPIRATORY FAILURE, UNSPECIFIED WITH HYPERCAPNIA Qualifiers : Chronicity: acute on chronic Qualified Code(s): J96.22 - Acute and chronic respiratory failure with hypercapnia (9) Morbid obesity Code(s): E66.01 - MORBID (SEVERE) OBESITY DUE TO EXCESS CALORIES Qualifiers: Obesity type: due to excess calories Qualified Code(s): E66.01 - Morbid (severe) obesity due to excess calories (10) Obstructive apnea Assessment/Plan: CPAP per pediatric social worker. Code(s): G47.33 - OBSTRUCTIVE SLEEP APNEA (ADULT) (PEDIATRIC) (11) Glaucoma Assessment/Plan: on Timoptic. Code(s): H40.9 - UNSPECIFIED GLAUCOMA
--- NOTE | 2016-05-11 16:01 | PN ---
Teaching Attending Note Name of Resident: Brooklynn Roy ATTENDING PHYSICIAN STATEMENT I saw and evaluated the patient. I reviewed the resident's note and discussed the case with the resident. I agree with the resident's findings and plan as documented. SUBJECTIVE: OBJECTIVE: Vital Signs Temperature 98 F 05/11/16 07:54 Pulse Rate 94 H 05/11/16 09:42 Respiratory Rate 20 05/11/16 08:00 Blood Pressure 135/85 05/11/16 07:54 O2 Sat by Pulse Oximetry (%) 97 05/11/16 09:42 GENERAL: The patient is awake, alert, and fully oriented, in no acute distress. morbidly obese. HEAD: Normal with no signs of trauma. EYES: PERRL, extraocular movements intact, sclera anicteric, conjunctiva clear. ENT: Ears normal, oropharynx clear without exudates, moist mucous membranes. NECK: Trachea midline, full range of motion, supple. LUNGS: Breath sounds equal, decreased BS bilaterally, no wheezes, no crackles, no accessory muscle use. HEART: Regular rate and rhythm, S1, S2 without murmur, rub or gallop. ABDOMEN: Soft, nontender, nondistended, normoactive bowel sounds, no guarding, no rebound, no hepatosplenomegaly, no masses. EXTREMITIES: 2+ pulses, warm, well-perfused, no edema. NEUROLOGICAL: Cranial nerves II through XII grossly intact. Normal speech, gait not observed. PSYCH: Normal mood, normal affect. SKIN: Warm, dry, normal turgor, no rashes or lesions noted CBCD WBC 11.3 K/mm3 (4.0-10.0) H 05/08/16 05:35 RBC 4.93 M/mm3 (4.00-5.60) 05/08/16 05:35 Hgb 14.1 GM/dL (11.7-16.9) 05/08/16 05:35 Hct 44.7 % (35.4-49) 05/08/16 05:35 MCV 90.7 fl (80-96) 05/08/16 05:35 MCHC 31.4 g/dl (32.0-35.9) L 05/08/16 05:35 RDW 16.0 % (11.9-15.9) H 05/08/16 05:35 Plt Count 254 K/MM3 (134-434) 05/08/16 05:35 MPV 7.7 fl (7.5-11.1) 05/08/16 05:35 CMP Sodium 138 mmol/L (136-145) 05/08/16 05:35 Potassium 4.9 mmol/L (3.5-5.1) 05/08/16 05:35 Chloride 92 mmol/L (98-107) L 05/08/16 05:35 Carbon Dioxide 39 mmol/L (21-32) H 05/08/16 05:35 Anion Gap 7 (8-16) L 05/08/16 05:35 BUN 21 mg/dL (7-18) H D 05/08/16 05:35 Creatinine 0.7 mg/dL (0.7-1.3) 05/08/16 05:35 Creat Clearance w eGFR > 60 (>60) 05/02/16 05:20 Random Glucose 138 mg/dL (74-106) H 05/08/16 05:35 Calcium 8.9 mg/dL (8.5-10.1) 05/08/16 05:35 Total Bilirubin 0.9 mg/dL (0.2-1.0) D 05/02/16 05:20 AST 18 U/L (15-37) 05/02/16 05:20 ALT 13 U/L (12-78) 05/02/16 05:20 Alkaline Phosphatase 113 U/L (45-117) 05/02/16 05:20 Total Protein 7.3 g/dl (6.4-8.2) 05/02/16 05:20 Albumin 3.5 g/dl (3.4-5.0) 05/02/16 05:20 CARDIAC ENZYMES Creatine Kinase 33 IU/L (39-308) L 05/01/16 22:30 Troponin I < 0.02 ng/ml (0.00-0.05) 05/01/16 22:30 Medication Instructions Recorded Albuterol Sulfate Inhaler - 2 inh PO Q4H 05/10/15 [Ventolin HFA Inhaler -] Arformoterol Tartrate [Brovana -] 1 neb NEB BID 05/10/15 Ergocalciferol [Drisdol -] 50,000 unit PO WEEKLY 05/10/15 Furosemide [Lasix -] 60 mg PO BID 05/10/15 Methimazole 10 mg PO DAILY 05/10/15 Pantoprazole Sodium [Protonix -] 20 mg PO DAILY 05/10/15 Rivaroxaban [Xarelto -] 20 mg PO DAILY 05/10/15 Vitamin B Complex 1 each PO DAILY 05/10/15 Timolol 0.5% [Timoptic 0.5%] 1 drop OU DAILY drops 05/15/15 Atorvastatin Ca [Lipitor] 10 mg PO DAILY 09/06/15 Multivitamin [Poly-Vitamin] 1 each PO DAILY 09/06/15 Potassium Chloride [K-Dur -] 20 meq PO Q2D@1000 tablet.er 09/12/15 Tramadol HCl [Ultram -] 50 mg PO BID #60 tablet MDD 100 mg 11/08/15 Albuterol 2.5/Ipratropium 0.5 1 amp NEB QIDR amp 05/10/16 [Duoneb -] Diltiazem Cd [Cardizem Cd -] 120 mg PO DAILY cap.cd.24h 05/10/16 Prednisone [Deltasone -] 60 mg PO DAILY tablet 05/10/16 Salmeterol/Fluticasone [Advair 1 puff IH BID inhaler 05/10/16 100Mcg/50Mcg -] ASSESSMENT AND PLAN: Patient is 45 y/o man with h/o morbid obesity, BONY, COPD-emphysema, diastolic CHF, anemia, UGI bleed, HTN, hyperthyroid, gluacoma, DVT, kidney stones and hiatal hernia , recent intubation due to acute resp failure , who presented with SOb and was found to have acute on chronic resp failure due to copd exa. # s/p Acute on chronic hypercapnic respiratory failure improved due to Acute COPD exacerbation s/p intubation and extubation improving on po prednisone 60mg daily. Duo-nebs and advair continue in rehab. patient is getting discharged to pulmonary rehab. and continue use of Bipap. at night and as needed during day time.Continue current therapy. # Hx of DVT: continue Xarelto # H/o Diastolic CHF stable last echo in 2015 showed nL EF and LV size ,continue lasix 60 mg po BID , I&O, daily weight # HTN: cont Norvasc and Lasix # hX OF hYPERTHYROIDISM continue Tapazole # Hx of HLP continue Lipitor # hypokalemia: resolved DVT Px: on Xarelto treatment for DVT continue To rehab today
== END 2016-05-11 15:24 | DRG 208 ==
LOC: SUPCPDRO 15:02 → JER 15:02 → JERBED 18:14 → JICU 19:30 → J4W 05-06 18:20
PROVIDERS: ADMIT Internal Medicine; ATTEND Internal Medicine
PROC: 0BH17EZ Insertion of Endotracheal Airway into Trachea, Via Natural or Artificial Opening (ICD-10-PCS; principal; 2016-05-02)
PROC: 5A1945Z Respiratory Ventilation, 24-96 Consecutive Hours (ICD-10-PCS; 2016-05-02)
DX: J96.22 Acute and chronic respiratory failure with hypercapnia (principal); I50.33 Acute on chronic diastolic (congestive) heart failure; J44.1 Chronic obstructive pulmonary disease with (acute) exacerbation; Z68.43 Body mass index [BMI] 50.0-59.9, adult; L03.116 Cellulitis of left lower limb; L03.115 Cellulitis of right lower limb; I47.2 Ventricular tachycardia; J96.21 Acute and chronic respiratory failure with hypoxia; D64.9 Anemia, unspecified; J45.909 Unspecified asthma, uncomplicated; G47.33 Obstructive sleep apnea (adult) (pediatric); H40.89 Other specified glaucoma; I11.0 Hypertensive heart disease with heart failure; K44.9 Diaphragmatic hernia without obstruction or gangrene; E05.80 Other thyrotoxicosis without thyrotoxic crisis or storm; M54.5 Low back pain; N20.0 Calculus of kidney; E87.6 Hypokalemia; I27.2 Other secondary pulmonary hypertension; E66.01 Morbid (severe) obesity due to excess calories; Z71.3 Dietary counseling and surveillance; Z87.442 Personal history of urinary calculi; Z86.718 Personal history of other venous thrombosis and embolism; Z99.81 Dependence on supplemental oxygen; Z87.891 Personal history of nicotine dependence
CPT/HCPCS: 31500; 36415; 36600; 71010-TC; 80048; 80053; 81003; 81015; 82375; 82550; 82803; 83050; 83605; 83735; 83880; 84100; 84484; 85025; 85027; 85610; 87040; 87070; 87205; 87254; 87633; 87804; 87899; 93005; 93010; 94002; 94640; 94660; 99284-25

== ENCOUNTER 2018-07-12 12:49 | Inpatient (IN) | payer OTHER ==
[2018-07-12] MEDS ORDERED: ALBUTEROL SO4 0.083% IH SOL 2.5 MG/3 ML VIAL.NEB. NEB ONE (14:42)
[2018-07-12] MEDS ORDERED: ALBUTEROL SO4 2.5/IPRATROPIUM 0.5 INH SOL 3 ML VIAL.NEB. NEB ONE (14:42)
--- NOTE | 2018-07-12 14:49 | PDOC ---
History of Present Illness - General Chief Complaint: Weakness Stated Complaint: ABNORMAL LABS Time Seen by Provider: 07/12/18 14:18 History Source: Patient - History of Present Illness Initial Comments: 07/12/18 14:43 Patient is a 47 y/o male with a history of BONY, COPD(on 3L O2), diastolic HF, anemia, UGI bleeding, HTN, hyperthyroidism, glaucoma, DVT and kidney stones who presents for "high potassium". Patient reports he was recently at [facility] where he was intubated for a pneumonia. He was transferred to [facility] for physical therapy. While there they took his labs and found that his potassium was high. He reports feeling fatigued. He denies fever, chills, chest pain, shortness of breath, nausea, vomiting and headache. Past History - Past Medical History Allergies/Adverse Reactions: Allergies Allergy/AdvReac Type Severity Reaction Status Date / Time aspirin Allergy Verified 10/12/17 11:49 milk AdvReac Verified 10/12/17 11:49 mushroom Allergy Unknown Uncoded 10/12/17 11:49 TURKEY Allergy Uncoded 10/12/17 11:49 Home Medications: Ambulatory Orders Albuterol Sulfate Inhaler - [Ventolin HFA Inhaler -] 2 inh PO Q4H 05/10/15 Arformoterol Tartrate [Brovana -] 1 neb [facility] BID 05/10/15 Ergocalciferol [Vitamin D2] 50,000 unit PO WEEKLY 05/10/15 Furosemide [Lasix -] 60 mg PO BID 05/10/15 Methimazole 10 mg PO DAILY 05/10/15 Pantoprazole Sodium [Protonix -] 20 mg PO DAILY 05/10/15 Rivaroxaban [Xarelto -] 20 mg PO DAILY 05/10/15 Vitamin B Complex 1 each PO DAILY 05/10/15 Timolol 0.5% [Timoptic 0.5%] 1 drop OU DAILY drops 05/15/15 Atorvastatin Ca [Lipitor] 10 mg PO DAILY 09/06/15 Multivitamin [Poly-Vitamin] 1 each PO DAILY 09/06/15 Albuterol 2.5/Ipratropium 0.5 [Duoneb -] 1 amp NEB QIDR amp 05/10/16 Diltiazem Cd [Cardizem Cd -] 120 mg PO DAILY cap.cd.24h 05/10/16 Docusate Sodium [Colace -] 300 mg PO HS capsule 10/20/17 Dorzolamide HCl [Trusopt 2% -] 1 drop OU BID drops 10/20/17 Polyethylene Glycol 3350 [Miralax 119 gm Btl -] 17 gm PO DAILY bottle 10/20/17 predniSONE [Deltasone -] See Taper PO DAILY #39 tablet 10/20/17 Anemia: Yes Asthma: Yes Cancer: No Cardiac Disorders: Yes (CHF) CVA: No COPD: Yes (O2 dependent 3-5LPM N/C, bipap at night) CHF: Yes Dementia: No Diabetes: No GI Disorders: Yes (UGI bleed) Disorders: No HTN: Yes Hypercholesterolemia: No Liver Disease: No Seizures: Yes Thyroid Disease: Yes - Surgical History Abdominal Surgery: Yes (corterize abdominal bleed) Appendectomy: No Cardiac Surgery: No Cholecystectomy: No Lung Surgery: No Neurologic Surgery: No Orthopedic Surgery: No - Immunization History Immunization Up to Date: Yes - Suicide/Smoking/Psychosocial Hx Smoking Status: No Smoking History: Former smoker Have you smoked in the past 12 months: Yes Number of Cigarettes Smoked Daily: 3 If you are a former smoker, when did you quit?: 2016 (20+ pack year hx prior) 'Breaking Loose' booklet given: 10/13/17 Hx Alcohol Use: No Drug/Substance Use Hx: No Substance Use Type: None Hx Substance Use Treatment: No Review of Systems - Review of Systems Constitutional: No: Chills, Fever Respiratory: No: Cough, Shortness of Breath Cardiac (ROS): No: Chest Pain ABD/GI: No: Constipated, Diarrhea, Nausea, Vomiting *Physical Exam - Physical Exam Comments: 07/12/18 14:50 GENERAL: awake and alert, morbidly obese HEART: tachycardia, no murmurs or rubs heard LUNGS: CTAL B/L, minimal wheezing heard ABD: soft, non tender EXTREMITIES: no pitting edema, chronic skin color changes at lower legs ED Treatment Course - LABORATORY CBC & Chemistry Diagram: 07/12/18 15:08 07/12/18 16:30 - RADIOLOGY Radiology Studies Ordered: Category Date Time Status CXRPORT [CHEST X-RAY PORTABLE*] [RAD] Stat Radiology 07/12/18 14:30 Ordered Medical Decision Making - Medical Decision Making 07/12/18 14:52 on 4L O2 ~91%, f/u labs, CXR EKG: sinus tachycardia, no ST elevations or depressions 07/12/18 16:52 BIPAP ordered for oxygen saturation down to 70's while sleeping CMP hemolyzed, new labs sent XRAY: bilateeral infiltrates , lasix 40 given 125 solumedrol 07/12/18 21:56 Admitted to medicine team, discuss with anesthesia for intubation BIPAP settings based on previous admission and sleep studies f/u ABG CO2 increased to 130 *DC/Admit/Observation/Transfer Diagnosis at time of Disposition: Acute on chronic respiratory failure with hypoxia and hypercapnia - Discharge Dispostion Decision to Admit order: Yes - Referrals - Patient Instructions - Post Discharge Activity
[2018-07-12 15:33] LABS: HEMATOCRIT 42.1 % (35.4-49); HEMOGLOBIN 13.4 GM/dL (11.7-16.9); MCH 29.6 pg (25.7-33.7); MCHC 31.8 g/dl (32.0-35.9); MEAN CELL VOLUME 93.3 fl (80-96); MEAN PLT VOLUME 7.9 fl (7.5-11.1); PLATELET COUNT 121 K/MM3 (134-434); RBC 4.51 M/mm3 (4.00-5.60); RDW 15.9 % (11.9-15.9); WHITE BLOOD COUNT 7.2 K/mm3 (4.0-10.0)
[2018-07-12] MEDS ORDERED: FUROSEMIDE 40 MG/4 ML INJECTABLE VIAL IVPUSH ONE (15:47)
[2018-07-12] MEDS ORDERED: methylPREDNISolone NA SUCC 125 MG/2 ML VIAL IVPUSH ONE (15:47)
--- NOTE | 2018-07-12 15:56 | PDOC ---
Attending Attestation - Resident Resident Name: Kristine Chen - ED Attending Attestation I have performed the following: I have examined & evaluated the patient, The case was reviewed & discussed with the resident, I agree w/resident's findings & plan - HPI HPI: 07/12/18 15:50 47-year-old male with history of morbid obesity, obstructive sleep apnea, COPD on 3 L oxygen, diastolic CHF sent from senior living/rehabilitation for hyperkalemia. Recent discharge from [facility], on routine labs had potassium of 6.8 (mildly hemolyzed) on routine labs. pt without acute complaints other than baseline respiratory issues - Physicial Exam PE: 07/12/18 15:53 Morbidly obese, tachypnea, asleep but arousable, on home O2 Distant breath sounds, slight inspiratory wheezing at the bases Heart is regular tachycardia Abdomen distended but soft and nontender Chronic lower extremity venous stasis edema - Medical Decision Making 07/12/18 15:53 47-year-old male with multiple medical problems sent here for hyperkalemia on labs at senior living, here is tachycardic with apparently chronic respiratory distress, question acute process. He is tachycardic and tachypneic but O2 sats appear to be at baseline on oxygen. Given the wheezing patient was given nebulizers Chest x-ray suggestive of pulmonary edema with congestive changes on my preliminary review Check ABG for acute hypercarbia CBC within normal limits, chemistries pending including repeat potassium Reassess, discuss disposition with senior living Heart Score/ECG Review #1 ECG reviewed & interpreted by me at: 14:00 General ECG Interpretation: Sinus Rhythm (tachy at 116), Normal Intervals (qtc 444), No acute ischemic changes Compared to previous ECG there are: No significant change (c/w 10/12/17)
[2018-07-12] MEDS ORDERED: FUROSEMIDE 40 MG/4 ML INJECTABLE VIAL ONE (16:34)
[2018-07-12] MEDS ORDERED: methylPREDNISolone NA SUCC 125 MG/2 ML VIAL ONE (16:34)
[2018-07-12 17:16] LABS: ARTERIAL BLD GAS O2 SATURATION 88.9 % (95-98); ARTERIAL BLOOD GAS BASE EXCESS 16.7 meq/l (-2-2); ARTERIAL BLOOD GAS PO2 61.9 mmHg (80-105); ARTERIAL BLOOD GAS pH 7.22 (7.35-7.45); CARBOXYHEMOGLOBIN 1.6 % (0-2)
[2018-07-12 17:18] LABS: ALLENS TEST POSITIVE
[2018-07-12 17:20] LABS: ARTERIAL BLOOD GAS PCO2 128 mmHg (35-45)
[2018-07-12 17:54] LABS: ALBUMIN 3.5 g/dl (3.4-5.0); ALK PHOS 114 U/L (45-117); ANION GAP 5 MMOL/L (8-16); BILIRUBIN,TOTAL 0.8 mg/dL (0.2-1); BLOOD UREA NITROGEN 13 mg/dL (7-18); CALCIUM 9.2 mg/dL (8.5-10.1); CHLORIDE 91 mmol/L (98-107); CO2 > 45 mmol/L (21-32); CREATININE 0.7 mg/dL (0.55-1.3); GLUCOSE,RANDOM 107 mg/dL (74-106); POTASSIUM 5.4 mmol/L (3.5-5.1); SGOT/AST 10 U/L (15-37); SGPT/ALT 31 U/L (13-61); SODIUM 141 mmol/L (136-145); TOT PROT 6.7 g/dl (6.4-8.2)
--- NOTE | 2018-07-12 19:01 | CONSULT ---
Consult Consult Specialty:: ICU Referred by:: Gustavo Reason for Consultation:: hypercapnia - History of Present Illness History of Present Illness: pt on bipap lethargic, arousable to painful stimuli only, not responding to verbal stimuli. history obtained from chart and ED attending and resident. 47 yr old man morbidly obese with HTN, severe BONY, hx of DVT(on xarelto), COPD on continuous supplemental oxygen @3L, of diastolic heart failure, anemia, hx of UGI bleed, BIBEMS from [facility] for outpatient labs showing hyperkalemia of 6.8. upon arrival to ED pt was intially conversant, providing history and interacting appropriately, then he began to desaturate. He was placed on bipap with ABG showing respiratory acidosis with hypercapnia. Pt was recently treated for pneumonia requiring intubation at [facility], he was sent to [facility] [place]. - History Source History Provided By: Medical Record - Past Medical History Cardio/Vascular: Yes: CHF, Deep Vein Thrombosis, HTN, Hyperlipdemia, Other ( chronic peripheral edema) Pulmonary: Yes: Asthma, COPD, O2 Dependent (3L), Pneumonia, Sleep Apnea, Other ( BONY on bipap at night) Gastrointestinal: Yes: GI Bleed, Other (recurrent cellulitis of pannus. hernia per pt) Psych: Yes: Addictions Musculoskeletal: Yes: Chronic low back pain, Other (bilateral LE chronic edema and weakness) Endocrine: Yes: Hyperthyroidism, Other (morbid obesity thyroid goiter) Dermatology: Yes: Cellulitis, Other (chronic bilateral venostasis) Additional Medical History: BONY, morbid obesity, RUEXT DVT - Past Surgical History Past Surgical History: Yes: None - Alcohol/Substance Use Hx Alcohol Use: No History of Substance Use: reports: Cocaine - Smoking History Smoking history: Former smoker Have you smoked in the past 12 months: Yes Aproximately how many cigarettes per day: 3 If you are a former smoker, when did you quit?: 2015 (20+ pack year hx prior) - Social History Usual Living Arrangement: Alone ADL: Family Assistance (Mother moved in for some assistance) History of Recent Travel: No Home Medications - Allergies Allergies/Adverse Reactions: Allergies Allergy/AdvReac Type Severity Reaction Status Date / Time aspirin Allergy Verified 10/12/17 11:49 milk AdvReac Verified 10/12/17 11:49 mushroom Allergy Unknown Uncoded 10/12/17 11:49 TURKEY Allergy Uncoded 10/12/17 11:49 - Home Medications Home Medications: Ambulatory Orders Albuterol Sulfate Inhaler - [Ventolin HFA Inhaler -] 2 inh PO Q4H 05/10/15 Arformoterol Tartrate [Brovana -] 1 neb NEB BID 05/10/15 Ergocalciferol [Vitamin D2] 50,000 unit PO WEEKLY 05/10/15 Furosemide [Lasix -] 60 mg PO BID 05/10/15 Methimazole 10 mg PO DAILY 05/10/15 Pantoprazole Sodium [Protonix -] 20 mg PO DAILY 05/10/15 Rivaroxaban [Xarelto -] 20 mg PO DAILY 05/10/15 Vitamin B Complex 1 each PO DAILY 05/10/15 Timolol 0.5% [Timoptic 0.5%] 1 drop OU DAILY drops 05/15/15 Atorvastatin Ca [Lipitor] 10 mg PO DAILY 09/06/15 Multivitamin [Poly-Vitamin] 1 each PO DAILY 09/06/15 Albuterol 2.5/Ipratropium 0.5 [Duoneb -] 1 amp NEB QIDR amp 05/10/16 Diltiazem Cd [Cardizem Cd -] 120 mg PO DAILY cap.cd.24h 05/10/16 Docusate Sodium [Colace -] 300 mg PO HS capsule 10/20/17 Dorzolamide HCl [Trusopt 2% -] 1 drop OU BID drops 10/20/17 Polyethylene Glycol 3350 [Miralax 119 gm Btl -] 17 gm PO DAILY bottle 10/20/17 predniSONE [Deltasone -] See Taper PO DAILY #39 tablet 10/20/17 Family Disease History - Family Disease History Family Disease History: Heart Disease: Mother (PPM in her 60s (after fainting)) Review of Systems Unable to obtain ROS, reason: not verbally responding Physical Exam Vital Signs: Vital Signs Temperature 98.0 F 07/12/18 13:25 Pulse Rate 103 H 07/12/18 14:31 Respiratory Rate 23 H 07/12/18 14:31 Blood Pressure 110/84 07/12/18 13:25 O2 Sat by Pulse Oximetry (%) 95 07/12/18 17:00 Constitutional: Yes: Calm Eyes: Yes: Other (b/l pinpoint pupils) HENT: Yes: Atraumatic, Normocephalic Neck: Yes: Trachea Midline, Other (thick neck) Cardiovascular: Yes: Tachycardia. No: Murmur Respiratory: Yes: On BiPap, Poor Air Entry (very poor air entry throughout b/l lungs) Gastrointestinal: Yes: Abdomen, Obese (morbidly obese) Extremities: Yes: Other (chronic PVD hyperpigmented hyperkeratotic skin change b /l from ankle to foot) Edema: Yes Edema: LLE: 2+, RLE: 2+ Peripheral Pulses WNL: Yes Integumentary: Yes: Other (bruising at peripheral line and blood draw sites at b /l anticubitals, likely from recent hospitalization) Labs: CBC, BMP 07/12/18 15:08 07/12/18 16:30 Assessment/Plan 47 yr old man morbidly obese, BONY, COPD on 3L nasal cannula continuous, s/p multiple intubation in the past, diastolic heart failure, anemia, UGI bleeding, HTN, hyperthyroidism, glaucoma, DVT, kidney stones, hiatal hernia, who was brought in for hyperkalemia on outpatient labs found to be have worsening mental status with desaturation on pulse ox requiring bi-level support. unclear exacerbation of hyperkalemia and acute higher level of hypercapnia, pt recently completed tx for pna, no c/o fever, no leucocytosis. acute treatment with duonebs and steriods for acute COPD exacerbation possibly from progressing pneumonia - Neurological - nonresponsive likely due to hypercapnia - Cardiovascular, hx of HTN - maintaining BP - on cardizem, lipitor, continue if BP can tolerate - Respiratory - chronic respiratory acidosis with worsening hypercapnia, acute hypoxic hypercapniec respiratory failure - bipap trial, however pt currently not interacting with me, recommend intubation if mental status worsens any further - solumedrol 60mg IVPB q6h genevieve - duonebs - Renal - lasix BID 60mg daily iv, continuing home dose - Fluids, electrolytes, nutrition (FEN) - no IVF due to concern for CHF exacerbation - mild hyperkalemia, 5.4, no acute EKG changes - NPO while on bipap - Endocrine - hyperthyroidism - on methimazole - check TSH levels - Hematology - hx of DVT on xarelto - Prophylaxis - Gi on protonix - continue xarelto dispo: ICU monitoring for tenuous respiratory status.
[2018-07-12 19:09] LABS: ARTERIAL BLD GAS O2 SATURATION 81.5 % (95-98); ARTERIAL BLOOD GAS BASE EXCESS 19.1 meq/l (-2-2); ARTERIAL BLOOD GAS PO2 52.3 mmHg (80-105)
[2018-07-12] MEDS ORDERED: KETAMINE HCL 200 MG/20 ML VIAL ONE (19:11)
[2018-07-12] MEDS ORDERED: RAPID SEQUENCE INTUBATION KIT NR ONE ×2 (19:11→21:59)
[2018-07-12] MEDS ORDERED: SUCCINYLCHOLINE CHLORIDE 200 MG/10 ML VIAL IVPUSH ONE (19:15)
[2018-07-12] MEDS ORDERED: KETAMINE HCL 200 MG/20 ML VIAL IVPUSH ONE ×2 (19:15→19:32)
[2018-07-12 19:16] LABS: ALLENS TEST POSITIVE
[2018-07-12 19:18] LABS: ARTERIAL BLOOD GAS PCO2 150 mmHg (35-45); ARTERIAL BLOOD GAS pH 7.19 (7.35-7.45)
--- NOTE | 2018-07-12 19:24 | HP ---
CHIEF COMPLAINT: Hyperkalemia 6.9 PCP: Dr Guzman HISTORY OF PRESENT ILLNESS: Patient is a 47 y/o male with a history of BONY, COPD(on 3L O2), diastolic CHF, anemia, UGI bleeding, HTN, hyperthyroidism, glaucoma, DVT and kidney stones who presents for "high potassium6.9". Patient reports he was recently at [facility] where he was intubated for a pneumonia. He was transferred to [facility] for physical therapy. While there they took his labs and found that his potassium was high. He reports feeling fatigued. He denies fever, chills, chest pain, shortness of breath, nausea, vomiting and headache. pt in Ed with hypoxic respiratory failure improved on BIPAP temeporaly then his mental status deteriorated became more lethargic , hypoxic end up to be intubated in ED by Anesthesia and started on Propofol 10 and midazolam 5 and admitted to ICU ER course was notable for: (1) ABG ph 719 , pco2 150,po2 52, bec 54 (2)cxr with congestion changes and bibasilar atelectasis (3) Recent Travel: denies PAST MEDICAL HISTORY: as per HPI PAST SURGICAL HISTORY: none Social History: Smoking:denies Alcohol:denies Drugs: denies Family History: Allergies aspirin Allergy (Verified 10/12/17 11:49) milk Adverse Reaction (Verified 10/12/17 11:49) mushroom Allergy (Unknown, Uncoded 10/12/17 11:49) TURKEY Allergy (Uncoded 10/12/17 11:49) HOME MEDICATIONS: Home Medications Medication Instructions Recorded Albuterol Sulfate Inhaler - 2 inh PO Q4H 05/10/15 [Ventolin HFA Inhaler -] Arformoterol Tartrate [Brovana -] 1 neb NEB BID 05/10/15 Ergocalciferol [Vitamin D2] 50,000 unit PO WEEKLY 05/10/15 Furosemide [Lasix -] 60 mg PO BID 05/10/15 Methimazole 10 mg PO DAILY 05/10/15 Pantoprazole Sodium [Protonix -] 20 mg PO DAILY 05/10/15 Rivaroxaban [Xarelto -] 20 mg PO DAILY 05/10/15 Vitamin B Complex 1 each PO DAILY 05/10/15 Timolol 0.5% [Timoptic 0.5%] 1 drop OU DAILY drops 05/15/15 Atorvastatin Ca [Lipitor] 10 mg PO DAILY 09/06/15 Multivitamin [Poly-Vitamin] 1 each PO DAILY 09/06/15 Albuterol 2.5/Ipratropium 0.5 1 amp NEB QIDR amp 05/10/16 [Duoneb -] Diltiazem Cd [Cardizem Cd -] 120 mg PO DAILY cap.cd.24h 05/10/16 Docusate Sodium [Colace -] 300 mg PO HS capsule 10/20/17 Dorzolamide HCl [Trusopt 2% -] 1 drop OU BID drops 10/20/17 Polyethylene Glycol 3350 [Miralax 17 gm PO DAILY bottle 10/20/17 119 gm Btl -] predniSONE [Deltasone -] See Taper PO DAILY #39 tablet 10/20/17 REVIEW OF SYSTEMS CONSTITUTIONAL: Absent: fever, chills, diaphoresis, generalized weakness, malaise, loss of appetite, weight change HEENT: Absent: rhinorrhea, nasal congestion, throat pain, throat swelling, difficulty swallowing, mouth swelling, ear pain, eye pain, visual changes CARDIOVASCULAR: Absent: chest pain, syncope, palpitations, irregular heart rate, lightheadedness , peripheral edema RESPIRATORY: Absent: cough, shortness of breath, dyspnea with exertion, orthopnea, wheezing, stridor, hemoptysis GASTROINTESTINAL: Absent: abdominal pain, abdominal distension, nausea, vomiting, diarrhea, constipation, melena, hematochezia GENITOURINARY: Absent: dysuria, frequency, urgency, hesitancy, hematuria, flank pain, genital pain MUSCULOSKELETAL: Absent: myalgia, arthralgia, joint swelling, back pain, neck pain SKIN: Absent: rash, itching, pallor HEMATOLOGIC/IMMUNOLOGIC: Absent: easy bleeding, easy bruising, lymphadenopathy, frequent infections ENDOCRINE: Absent: unexplained weight gain, unexplained weight loss, heat intolerance, cold intolerance NEUROLOGIC: Absent: headache, focal weakness or paresthesias, dizziness, unsteady gait, seizure, mental status changes improved , bladder or bowel incontinence PSYCHIATRIC: Absent: anxiety, depression, suicidal or homicidal ideation, hallucinations. PHYSICAL EXAMINATION Vital Signs - 24 hr 07/12/18 07/12/18 07/12/18 13:25 14:31 17:00 Temperature 98.0 F Pulse Rate 103 H 103 H Respiratory 23 H 23 H Rate Blood Pressure 110/84 O2 Sat by Pulse 95 95 95 Oximetry (%) GENERAL: AAOx3 in mild respiratory distress on BIPAP , morbid obese HEAD: NC/AT EYES: EOMI, Conjunctiva clear, sclera anicteric ENT: moist mucous membrane NECK: obese , Supple, can not r.o JVD LUNGSdecrease breath sound at the bases , left base crackles HEART: sinus tachy, NSR, normal s1, s2, murmur no M/R/G ABDOMEN: obese Soft, ND, NT, +BS 4 Q, no CVA Tenderness LOWER EXTREMITIES: no edema, +2DP pulse, NEUROLOGICAL: No focal deficit. Normal speech. gait not observed. PSYCHIATRIC: Cooperative. SKIN: Warm, dry, Laboratory Results - last 24 hr 07/12/18 07/12/18 07/12/18 15:08 15:08 16:10 WBC 7.2 RBC 4.51 Hgb 13.4 Hct 42.1 MCV 93.3 MCH 29.6 MCHC 31.8 L RDW 15.9 D Plt Count 121 L D MPV 7.9 D Anticoagulation Therapy No Result Required. Puncture Site Right radial ABG pH 7.19 L* ABG pCO2 at Pt Temp 150 H* ABG pO2 at Pt Temp 52.3 L ABG HCO3 54.7 H ABG O2 Sat (Measured) 81.5 L ABG O2 Content 15.9 ABG Base Excess 19.1 H Orlin Test Positive Carboxyhemoglobin Methemoglobin O2 Delivery Device Bipap Oxygen Flow Rate 40% Vent Mode No Result Required. Vent Rate No Result Required. Mechanical Rate No Result Required. Pressure Support Vent No Result Required. Sodium Cancelled Potassium Cancelled Chloride Cancelled Carbon Dioxide Cancelled Anion Gap Cancelled BUN Cancelled Creatinine Cancelled Creat Clearance w eGFR Cancelled Random Glucose Cancelled Calcium Cancelled Total Bilirubin Cancelled AST Cancelled ALT Cancelled Alkaline Phosphatase Cancelled Creatine Kinase Troponin I Cancelled Total Protein Cancelled Albumin Cancelled 07/12/18 07/12/18 07/12/18 16:20 16:30 16:30 WBC RBC Hgb Hct MCV MCH MCHC RDW Plt Count MPV Anticoagulation Therapy No Result Required. Puncture Site Right radial ABG pH 7.22 L ABG pCO2 at Pt Temp 128 H* ABG pO2 at Pt Temp 61.9 L ABG HCO3 50.1 H ABG O2 Sat (Measured) 88.9 L ABG O2 Content 16.3 ABG Base Excess 16.7 H Orlin Test Positive Carboxyhemoglobin 1.6 Methemoglobin 0.5 O2 Delivery Device Bipap Oxygen Flow Rate 40% Vent Mode No Result Required. Vent Rate No Result Required. Mechanical Rate No Result Required. Pressure Support Vent No Result Required. Sodium 141 Potassium 5.4 H Chloride 91 L Carbon Dioxide > 45 H Anion Gap 5 L BUN 13 Creatinine 0.7 Creat Clearance w eGFR 120.88 Random Glucose 107 H Calcium 9.2 Total Bilirubin 0.8 AST 10 L ALT 31 Alkaline Phosphatase 114 Creatine Kinase 18 L Troponin I < 0.02 Total Protein 6.7 Albumin 3.5 CBC, BMP 07/12/18 15:08 07/12/18 16:30 ASSESSMENT/PLAN: Patient is a 47 y/o male with a history of BONY, COPD(on 3L O2), diastolic HF, anemia, UGI bleeding, HTN, hyperthyroidism, glaucoma, DVT and kidney stones who presents for "high potassium"6.9 at [facility] and was found to have acute hypoxic hypercapnic respiratory failure admitted to icu for further evaluation. # Acute hypoxic hypercapnic respiratory failure due to COPD exacerbation and Dchf exacerbation r.o PNA # BONY * on lasix 60 po BID at home , received 40 IV in ED ,will cont lasix 60 IV BID * Duoneb ,Albuterol , Solumedrol 60 Q 8hr * daily weight , I& O * monitor in ICU , consult pulm * consider consult cardiology * Echo in AM * maintain O2 sat 88-92 % * maintain BP AMP>65 * improve on BIPAP 22/18/fio2 30 % . recent ABG PH 7.29 , PCO2 , PO2 , Bec * Abx proph zosyn and azithro * intubate if any AMS and worsening respiratory acidosis * repeat ABG @ 9 am, then in aM * CXR in AM * urine legionella AG , Influenza A, B # Hyperkalemia * k 6.9 on admission treated medically ....5.4 repeat K at 9 pm today * D50 , insulin , Albuterol , add kayexalate suppository if still elevated * repeat lab in AM * monitor for any EKG changes # HTN * hold diltiazem as pt is normotensive * continue lasix 60 IV BID * monitor BP # HLD * cont home meds # Hyperthyroidism * can not cont home meds Methimazole as does not come in iv # thrombocytopenia * plt 121 , no active bleeding monitor # H/O DVT * on xarelto cont # FEN * no standing fluids * Monitor lytes * NPO # Proph * DVTs : on xarelto * GI : PPI 20 daily IV # Dispo * monitor in ICU # Code status * full code Visit type - Emergency Visit Emergency Visit: Yes ED Registration Date: 07/12/18 Care time: The patient presented to the Emergency Department on the above date and was hospitalized for further evaluation of their emergent condition. - New Patient This patient is new to me today: Yes Date on this admission: 07/12/18 - Critical Care Critical Care patient: Yes Total Critical Care Time (in minutes): 45 Critical Care Statement: The care of this patient involved high complexity decision making to prevent further life threatening deterioration of the patient 's condition and/or to evaluate & treat vital organ system(s) failure or risk of failure.
[2018-07-12] MEDS ORDERED: MIDAZOLAM HCL 2 MG/2 ML SINGLE DOSE VIAL ONE ×3 (19:29→22:56)
[2018-07-12] MEDS ORDERED: MIDAZOLAM HCL 5 MG/1 ML Single Dose Vial IVPUSH ONE ×2 (19:32→19:45)
[2018-07-12] MEDS ORDERED: INSULIN REGULAR HUMAN 100 UNITS/ML *VIAL IVPUSH ONE ×2 (19:40→19:41)
[2018-07-12] MEDS ORDERED: DEXTROSE 50%-WATER - 25 GM/50 ML VIAL IVPUSH ONE (19:40)
[2018-07-12] MEDS ORDERED: DEXTROSE 50%-WATER - 25 GM/50 ML VIAL ONE (19:44)
[2018-07-12] MEDS ORDERED: INSULIN NPH 100 UNITS/ML *VIAL ONE (19:44)
--- NOTE | 2018-07-12 19:44 | PDOC ---
*Physical Exam - Vital Signs Last Vital Signs Temp Pulse Resp BP Pulse Ox 98.0 F 122 H 20 109/77 88 L 07/12/18 13:25 07/12/18 19:35 07/12/18 19:35 07/12/18 19:35 07/12/18 19:35 <Rbuia Ortiz - Last Filed: 07/12/18 19:44> - Vital Signs Last Vital Signs Temp Pulse Resp BP Pulse Ox 98.0 F 122 H 20 109/77 88 L 07/12/18 13:25 07/12/18 19:35 07/12/18 19:35 07/12/18 19:35 07/12/18 19:35 <MieshaJordin - Last Filed: 07/12/18 23:25> ED Treatment Course - LABORATORY CBC & Chemistry Diagram: 07/12/18 15:08 07/12/18 16:30 - ADDITIONAL ORDERS Additional order review: Laboratory Results 07/12/18 07/12/18 07/12/18 16:30 16:30 16:20 Anticoagulation Therapy No Result Required. Puncture Site Right radial ABG pH 7.22 L ABG pCO2 at Pt Temp 128 H* ABG pO2 at Pt Temp 61.9 L ABG HCO3 50.1 H ABG O2 Sat (Measured) 88.9 L ABG O2 Content 16.3 ABG Base Excess 16.7 H Orlin Test Positive Carboxyhemoglobin 1.6 Methemoglobin 0.5 O2 Delivery Device Bipap Oxygen Flow Rate 40% Vent Mode No Result Required. Vent Rate No Result Required. Mechanical Rate No Result Required. Pressure Support Vent No Result Required. Sodium 141 Potassium 5.4 H Chloride 91 L Carbon Dioxide > 45 H Anion Gap 5 L BUN 13 Creatinine 0.7 Creat Clearance w eGFR 120.88 Random Glucose 107 H Calcium 9.2 Total Bilirubin 0.8 AST 10 L ALT 31 Alkaline Phosphatase 114 Creatine Kinase 18 L Troponin I < 0.02 Total Protein 6.7 Albumin 3.5 07/12/18 07/12/18 16:10 15:08 Anticoagulation Therapy No Result Required. Puncture Site Right radial ABG pH 7.19 L* ABG pCO2 at Pt Temp 150 H* ABG pO2 at Pt Temp 52.3 L ABG HCO3 54.7 H ABG O2 Sat (Measured) 81.5 L ABG O2 Content 15.9 ABG Base Excess 19.1 H Orlin Test Positive Carboxyhemoglobin Methemoglobin O2 Delivery Device Bipap Oxygen Flow Rate 40% Vent Mode No Result Required. Vent Rate No Result Required. Mechanical Rate No Result Required. Pressure Support Vent No Result Required. Sodium Cancelled Potassium Cancelled Chloride Cancelled Carbon Dioxide Cancelled Anion Gap Cancelled BUN Cancelled Creatinine Cancelled Creat Clearance w eGFR Cancelled Random Glucose Cancelled Calcium Cancelled Total Bilirubin Cancelled AST Cancelled ALT Cancelled Alkaline Phosphatase Cancelled Creatine Kinase Troponin I Cancelled Total Protein Cancelled Albumin Cancelled 07/12/18 15:08 RBC 4.51 MCV 93.3 MCHC 31.8 L RDW 15.9 D MPV 7.9 D - Medications Given in the ED: ED Medications Discontinued Medications Generic Name Dose Route Start Last Admin Trade Name Freq PRN Reason Stop Dose Admin Albuterol Sulfate 1 amp 07/12/18 14:42 07/12/18 14:49 Ventolin 0.083% Nebulizer Soln - NEB 07/12/18 14:43 1 amp ONCE ONE Administration Furosemide 40 mg 07/12/18 15:47 07/12/18 16:41 Lasix Injection - IVPUSH 07/12/18 15:48 40 mg ONCE ONE Administration Methylprednisolone Sodium Succinate 125 mg 07/12/18 15:47 07/12/18 16:41 Solu-Medrol - IVPUSH 07/12/18 15:48 125 mg ONCE ONE Administration <Rubia Ortiz - Last Filed: 07/12/18 19:44> - LABORATORY CBC & Chemistry Diagram: 07/12/18 15:08 07/12/18 16:30 - ADDITIONAL ORDERS Additional order review: Laboratory Results 07/12/18 07/12/18 07/12/18 19:42 16:30 16:30 Anticoagulation Therapy No Result Required. Puncture Site Right radial ABG pH 7.29 L ABG pCO2 at Pt Temp 113 H* ABG pO2 at Pt Temp 50.9 L ABG HCO3 52.5 H ABG O2 Sat (Measured) 84.9 L ABG O2 Content 16.4 ABG Base Excess 19.7 H Orlin Test Positive Carboxyhemoglobin Methemoglobin O2 Delivery Device Bipap Oxygen Flow Rate 25% Vent Mode No Result Required. Vent Rate No Result Required. Mechanical Rate No Result Required. Pressure Support Vent No Result Required. Sodium 141 Potassium 5.4 H Chloride 91 L Carbon Dioxide > 45 H Anion Gap 5 L BUN 13 Creatinine 0.7 Creat Clearance w eGFR 120.88 Random Glucose 107 H Calcium 9.2 Total Bilirubin 0.8 AST 10 L ALT 31 Alkaline Phosphatase 114 Creatine Kinase 18 L Troponin I < 0.02 Total Protein 6.7 Albumin 3.5 07/12/18 07/12/18 07/12/18 16:20 16:10 15:08 Anticoagulation Therapy No Result Required. No Result Required. Puncture Site Right radial Right radial ABG pH 7.22 L 7.19 L* ABG pCO2 at Pt Temp 128 H* 150 H* ABG pO2 at Pt Temp 61.9 L 52.3 L ABG HCO3 50.1 H 54.7 H ABG O2 Sat (Measured) 88.9 L 81.5 L ABG O2 Content 16.3 15.9 ABG Base Excess 16.7 H 19.1 H Orlin Test Positive Positive Carboxyhemoglobin 1.6 Methemoglobin 0.5 O2 Delivery Device Bipap Bipap Oxygen Flow Rate 40% 40% Vent Mode No Result Required. No Result Required. Vent Rate No Result Required. No Result Required. Mechanical Rate No Result Required. No Result Required. Pressure Support Vent No Result Required. No Result Required. Sodium Cancelled Potassium Cancelled Chloride Cancelled Carbon Dioxide Cancelled Anion Gap Cancelled BUN Cancelled Creatinine Cancelled Creat Clearance w eGFR Cancelled Random Glucose Cancelled Calcium Cancelled Total Bilirubin Cancelled AST Cancelled ALT Cancelled Alkaline Phosphatase Cancelled Creatine Kinase Troponin I Cancelled Total Protein Cancelled Albumin Cancelled 07/12/18 15:08 RBC 4.51 MCV 93.3 MCHC 31.8 L RDW 15.9 D MPV 7.9 D - Medications Given in the ED: ED Medications Discontinued Medications Generic Name Dose Route Start Last Admin Trade Name Freq PRN Reason Stop Dose Admin Albuterol Sulfate 1 amp 07/12/18 14:42 07/12/18 14:49 Ventolin 0.083% Nebulizer Soln - NEB 07/12/18 14:43 1 amp ONCE ONE Administration Dextrose 25 gm 07/12/18 19:40 07/12/18 19:56 D50w (Vial) - IVPUSH 07/12/18 19:41 25 gm NOW ONE Administration Furosemide 40 mg 07/12/18 15:47 07/12/18 16:41 Lasix Injection - IVPUSH 07/12/18 15:48 40 mg ONCE ONE Administration Insulin Human Regular 10 units 07/12/18 19:41 07/12/18 19:56 Novolin R Vial *For Ivpush Or Iv Drip Only* IVPUSH 07/12/18 19:42 10 units ONCE ONE Administration Ketamine HCl 200 mg 07/12/18 19:15 07/12/18 19:44 Ketalar - IVPUSH 07/12/18 19:16 Not Given ONCE ONE Ketamine HCl 200 mg 07/12/18 19:32 07/12/18 19:46 Ketalar - IVPUSH 07/12/18 19:33 Not Given ONCE ONE Methylprednisolone Sodium Succinate 125 mg 07/12/18 15:47 07/12/18 16:41 Solu-Medrol - IVPUSH 07/12/18 15:48 125 mg ONCE ONE Administration Midazolam HCl 5 mg 07/12/18 19:32 07/12/18 19:46 Versed - IVPUSH 07/12/18 19:33 Not Given ONCE ONE Midazolam HCl 5 mg 07/12/18 19:45 07/12/18 19:45 Versed - IVPUSH 07/12/18 19:46 Not Given ONCE ONE Midazolam HCl 5 mg 07/12/18 23:00 07/12/18 22:36 Versed - IVPUSH 07/12/18 23:01 5 mg ONCE ONE Administration Midazolam HCl 4 mg 07/12/18 23:01 07/12/18 23:12 Versed - IVPUSH 07/12/18 23:02 4 mg ONCE ONE Administration Propofol 100,000 mcg 07/12/18 23:04 07/12/18 22:39 Diprivan - IVPUSH 07/12/18 23:05 100,000 mcg ONCE ONE Administration Succinylcholine Chloride 100 mg 07/12/18 19:15 07/12/18 19:58 Quelicin - IVPUSH 07/12/18 19:16 100 mg ONCE ONE Administration <Jordin Whiteside - Last Filed: 07/12/18 23:25> Medical Decision Making - Critical Care Time Total Critical Care Time (minutes): 120 Critical Care Statement: The care of this patient involved high complexity decision making to prevent further life threatening deterioration of the patient 's condition and/or to evaluate & treat vital organ system(s) failure or risk of failure. <Rubia Ortiz - Last Filed: 07/12/18 19:44> - Medical Decision Making 07/12/18 23:[address] Banerjee at 17:20. <Jordin Whiteside - Last Filed: 07/12/18 23:25> *DC/Admit/Observation/Transfer <Rubia Ortiz - Last Filed: 07/12/18 19:44> - Attestations Scribe Attestion: 07/12/18 23:25 Documentation prepared by Jordin Whiteside, acting as medical diagnostic radiographer for Rubia Ortiz MD. <Jordin Whiteside - Last Filed: 07/12/18 23:25> Diagnosis at time of Disposition: Acute on chronic respiratory failure with hypoxia and hypercapnia
[2018-07-12 19:45] LABS: ARTERIAL BLD GAS O2 SATURATION 84.9 % (95-98); ARTERIAL BLOOD GAS BASE EXCESS 19.7 meq/l (-2-2); ARTERIAL BLOOD GAS PO2 50.9 mmHg (80-105); ARTERIAL BLOOD GAS pH 7.29 (7.35-7.45)
[2018-07-12 19:47] LABS: ALLENS TEST POSITIVE
[2018-07-12 19:49] LABS: ARTERIAL BLOOD GAS PCO2 113 mmHg (35-45)
[2018-07-12] MEDS ORDERED: ALBUTEROL SO4 0.083% IH SOL 2.5 MG/3 ML VIAL.NEB. NEB PRN (20:17)
[2018-07-12] MEDS ORDERED: ALBUTEROL SO4 2.5/IPRATROPIUM 0.5 INH SOL 3 ML VIAL.NEB. NEB PRN (20:17)
--- NOTE | 2018-07-12 20:21 | PN ---
Teaching Attending Note Name of Resident: Tian Reich ATTENDING PHYSICIAN STATEMENT I saw and evaluated the patient. I reviewed the resident's note and discussed the case with the resident. I agree with the resident's findings and plan as documented. SUBJECTIVE: Seen and examined; please refer to the resident note for further historical information. Briefly, this is a 47 y/o male wi9th a complex PMH. He has a history of COPD on continuous 3L, D-CHF, anemia, UGIB, glaucoma, recent PNA, DVT , renal stones. BIBA from [facility] for hyperkalemia. He was initially conversant here then found to have desaturations and appear SOB. He was placed on BiPap and ABG shows acute on chronic respiratory acidosis. He was recently at [facility] and was intubated for what sounds like PNA. Sent to [facility] for acute rehab. When I came on he was saturating in the low 90s; his sats were observed to slightly diminish and repeat pCO2 went up to the 135-range so he was intubated by anesthesia. He was slightly altered and not able to give a great history due to intermittent CO2 narcosis that had become more present than not by the time I encountered the patient. 10 sys ROS done and negative aside from HPI PMH, PSH, Family Hx, Social Hx reviewed Medication List reviewed; reconciliation pending Home Medications Medication Instructions Recorded Albuterol Sulfate Inhaler - 2 inh PO Q4H 05/10/15 [Ventolin HFA Inhaler -] Arformoterol Tartrate [Brovana -] 1 neb NEB BID 05/10/15 Ergocalciferol [Vitamin D2] 50,000 unit PO WEEKLY 05/10/15 Furosemide [Lasix -] 60 mg PO BID 05/10/15 Methimazole 10 mg PO DAILY 05/10/15 Pantoprazole Sodium [Protonix -] 20 mg PO DAILY 05/10/15 Rivaroxaban [Xarelto -] 20 mg PO DAILY 05/10/15 Vitamin B Complex 1 each PO DAILY 05/10/15 Timolol 0.5% [Timoptic 0.5%] 1 drop OU DAILY drops 05/15/15 Atorvastatin Ca [Lipitor] 10 mg PO DAILY 09/06/15 Multivitamin [Poly-Vitamin] 1 each PO DAILY 09/06/15 Albuterol 2.5/Ipratropium 0.5 1 amp NEB QIDR amp 05/10/16 [Duoneb -] Diltiazem Cd [Cardizem Cd -] 120 mg PO DAILY cap.cd.24h 05/10/16 Docusate Sodium [Colace -] 300 mg PO HS capsule 10/20/17 Dorzolamide HCl [Trusopt 2% -] 1 drop OU BID drops 10/20/17 Polyethylene Glycol 3350 [Miralax 17 gm PO DAILY bottle 10/20/17 119 gm Btl -] predniSONE [Deltasone -] See Taper PO DAILY #39 tablet 10/20/17 OBJECTIVE: VS, labs, imaging reviewed Intubated and sedated, on vent with settings as documented, RASS 3 NC AT EOMI; ET tube in place Sinus tachy with difficult to auscultate murmurs due to body habitus on vent sounds Morbidly obese, ND, +BS CN2-12 normal but CO2 narcosis evident, moves all 4 ext Venous stasis changes evident, chronic dependent LE edema Not agitated, doesn't appear uncomfortable ASSESSMENT AND PLAN: Patient presents with acute mixed respiratory failure; likely cause is CO2 narcosis, but documented as being alert and appropriately responding on presentation. He definitely has a severe retention issue at baseline but ABG endorses presence of acute component. 1) Acute mixed RF with Acute on Chronic Respiratory Acidosis -Intubated and sedated (propofol) on the vent with documented settings; deferring further management to ICU team. Appreciate expert opinion. -IV steroids, Levaquin (monitor QTc), ATC duonebs and PRN albuterol 2) AMS 2/2 CO2 narcosis -Treat underlying cause 3) Recent Pneumonia -Was intubated; would like to obtain old records. Not convinced at the presence of PNA today. -Empiric coverage initiated; can DC based on clinical data. 4) Hyperthyroidism -Check TSH; on methimazole. 5)
[2018-07-12] MEDS ORDERED: methylPREDNISolone NA SUCC 40 MG/1 ML VIAL ONE (20:25)
[2018-07-12] MEDS: methylPREDNISolone NA SUCC 40 MG/1 ML VIAL IVPB SCH ×2 (20:52→20:56)
[2018-07-12 21:38] LABS: ARTERIAL BLD GAS O2 SATURATION 89.7 % (95-98); ARTERIAL BLOOD GAS BASE EXCESS 20.4 meq/l (-2-2); ARTERIAL BLOOD GAS PO2 64.1 mmHg (80-105); ARTERIAL BLOOD GAS pH 7.23 (7.35-7.45)
[2018-07-12 21:39] LABS: ALLENS TEST POSITIVE
[2018-07-12 21:42] LABS: ARTERIAL BLOOD GAS PCO2 135 mmHg (35-45)
--- NOTE | 2018-07-12 21:57 | EKG ---
Test Reason : Blood Pressure : / mmHG Vent. Rate : 116 BPM Atrial Rate : 116 BPM P-R Int : 164 ms QRS Dur : 080 ms QT Int : 320 ms P-R-T Axes : 057 065 047 degrees QTc Int : 444 ms SINUS TACHYCARDIA POSSIBLE LEFT ATRIAL ENLARGEMENT LOW VOLTAGE QRS NONSPECIFIC ST AND T WAVE ABNORMALITY ABNORMAL ECG WHEN COMPARED WITH ECG OF 12-OCT-2017 11:57, NO SIGNIFICANT CHANGE WAS FOUND Confirmed by MD MIKIE, TAVIA ([id number]) on 07/12/2018 9:56:54 PM Referred By: Confirmed By:TAVIA DELUNA MD
[2018-07-12] MEDS ORDERED: MUPIROCIN 2% TOPICAL OINTMENT FOR DECOLONIZATION NS SCH (22:00)
[2018-07-12] MEDS ORDERED: CHLORHEXIDINE GLUCONATE 4% CLEANSER FOR DECOLONIZATION TP SCH (22:00)
[2018-07-12] MEDS ORDERED: MIDAZOLAM HCL 2 MG/2 ML SINGLE DOSE VIAL IVPUSH ONE ×2 (23:00→23:01)
[2018-07-12] MEDS ORDERED: PROPOFOL 200 MG/20 ML VIAL IVPUSH ONE (23:04)
[2018-07-12] MEDS ORDERED: MIDAZOLAM 100 MG/100 ML MG IVPB ONE (23:07)
[2018-07-12] MEDS ORDERED: PROPOFOL 1,000,000 MCG/100 ML VIAL ONE (23:07)
[2018-07-12] MEDS: MIDAZOLAM 100 MG in SODIUM CHLORIDE 100 ML IVPB SCH (23:15)
[2018-07-12] MEDS: PROPOFOL 1,000,000 MCG/100 ML VIAL IVPB SCH (23:35)
[2018-07-13 00:10] LABS: ALLENS TEST POSITIVE; ARTERIAL BLD GAS O2 SATURATION 91.7 % (95-98); ARTERIAL BLOOD GAS PCO2 62.5 mmHg (35-45); ARTERIAL BLOOD GAS PO2 51.8 mmHg (80-105); ARTERIAL BLOOD GAS pH 7.49 (7.35-7.45)
--- NOTE | 2018-07-13 00:25 | PN ---
Progress Note (short form) - Note Progress Note: Called to ER bed 10 for intubation consult at 19:30 because patient was said to have altered mental status after coming in from [facility] with potassium of 6.8 and altered mental status. When I arrived in ED he was on BiPap and alert, he refused intubation. At the time his CO2 was 128 and pH 7.2. I suggested the ABG be redrawn after some Bipap changes had been made by respiratory. The repeat ABG was better with pH 7.3 and CO2 of 113. Patient was still awake and alert. Plan was made to redraw ABG in an hour and make decision to intubate if status was worsening. The repeat ABG was pH 7.2 and CO2 138. Patient then agreed that intubation was best idea and we proceeded. He was bagged to 100% with respiratory therapist and I. Versed 5mg and propofol 50mg was given and intubation attempted with Glidescope. Tube was not able to be passed before desaturation. Bagged patient back to 100% and gave another 50mg of propofol. Attempted with MAC 4, and intubated with 7.5 ETT, Grade 4 view, +EtCO2, BSEB. VSS after Versed bolus of 5mg and propofol 50mg. Patient only had 1 IV and needed another for propofol and versed infusion to both be given. Placed 22g IV in left forearm. Versed infusion was set to 3mg/hr and propfol 30mcg/kg/min. Patient stabilized and turned over to ED staff. Plan to move to ICU as soon as bed is ready. ICU resident aware of plan and status of patient.
[2018-07-13] MEDS ORDERED: VANCOMYCIN HCL 1,250 MG in DEXTROSE 5%-WATER - 250 ML IVPB ONE (00:29)
[2018-07-13] MEDS ORDERED: LORazepam 2 MG/ML SDV VIAL ONE (01:26)
[2018-07-13 03:21] LABS: ARTERIAL BLD GAS O2 SATURATION 94.6 % (95-98); ARTERIAL BLOOD GAS BASE EXCESS 21.3 meq/l (-2-2); ARTERIAL BLOOD GAS PCO2 40.8 mmHg (35-45)
[2018-07-13 03:24] LABS: ALLENS TEST POSITIVE; ARTERIAL BLOOD GAS pH 7.66 (7.35-7.45)
[2018-07-13] MEDS ORDERED: DEXTROSE 5%-WATER - 50 ML IVPB ONE ×2 (03:59→09:03)
[2018-07-13] MEDS ORDERED: PIPERACILLIN/TAZOBACTAM 3.375 GM VIAL IVPB ONE ×2 (03:59→09:03)
[2018-07-13 04:03] LABS: URINE APPEARANCE CLEAR; URINE BILIRUBIN NEGATIVE (NEGATIVE); URINE COLOR YELLOW; URINE GLUCOSE (UA) NEGATIVE (NEGATIVE); URINE KETONE 2+ (NEGATIVE)
[2018-07-13 04:04] LABS: PH,URINE 8.5 (5.0-8.0); URINE NITRITE NEGATIVE (NEGATIVE)
[2018-07-13] MEDS: PIPERACILLIN/TAZOB 3.375 GM 3.375 GM in DEXTROSE 5%-WATER - 50 ML IVPB SCH ×2 (04:04→09:21)
[2018-07-13] MEDS: methylPREDNISolone NA SUCC 40 MG/1 ML VIAL IVPB SCH ×3 (04:05→17:19)
[2018-07-13 04:07] LABS: EPI CELLS 2 /HPF (0-5); URINE RBC 1 /hpf (0-4)
[2018-07-13 04:08] LABS: URINE BACTERIA 4 /hpf (NEGATIVE); URINE CASTS 2 /hpf (0-8)
[2018-07-13 04:11] LABS: URINE CRYSTALS 0 /hpf; URINE LEUK ESTERASE NEGATIVE (NEGATIVE); URINE PROTEIN 1+ (NEGATIVE); URINE WBC 2 /hpf (0-5)
[2018-07-13 04:12] LABS: YEAST 0 (NEGATIVE)
[2018-07-13] MEDS: PROPOFOL 1,000,000 MCG/100 ML VIAL IVPB SCH ×5 (04:46→23:14)
--- NOTE | 2018-07-13 05:12 | PN ---
Progress Note (short form) - Note Progress Note: Post intubation, witnessed generalized shaking of the body, lasted for 2 minutes , unsure if it was seizure or rigors, also witnessed by ED physician and resident. After giving 2 mg of IV Ativan, seizure stopped. No seizure witnessed since then. Unable to do a head CT due to Morbid obesity.
[2018-07-13] MEDS ORDERED: FUROSEMIDE 40 MG/4 ML INJECTABLE VIAL IVPUSH SCH (06:00)
[2018-07-13 07:57] LABS: INR 1.46 (0.83-1.09); PROTHROMBIN TIME (PATIENT) 17.3 SEC (9.7-13.0)
[2018-07-13] MEDS ORDERED: ARFORMOTEROL TARTRATE 15 MCG/2 ML VIAL NEB SCH (08:00)
[2018-07-13 08:09] LABS: BASO % 0.1 % (0-2.0); EOS % 0.1 % (0-4.5); HEMATOCRIT 40.6 % (35.4-49); HEMOGLOBIN 13.3 GM/dL (11.7-16.9); LYMPH % 3.1 % (8-40); MCH 29.8 pg (25.7-33.7); MCHC 32.8 g/dl (32.0-35.9); MEAN CELL VOLUME 90.9 fl (80-96); MEAN PLT VOLUME 8.3 fl (7.5-11.1); MONO % 6.5 % (3.8-10.2); NEUT % 90.2 % (42.8-82.8); PLATELET COUNT 98 K/MM3 (134-434); RBC 4.47 M/mm3 (4.00-5.60); RDW 14.8 % (11.9-15.9); WHITE BLOOD COUNT 8.4 K/mm3 (4.0-10.0)
[2018-07-13 08:41] LABS: ALBUMIN 3.1 g/dl (3.4-5.0); ALK PHOS 98 U/L (45-117); ANION GAP 6 MMOL/L (8-16); BILIRUBIN,TOTAL 2.2 mg/dL (0.2-1); BLOOD UREA NITROGEN 15 mg/dL (7-18); CHLORIDE 89 mmol/L (98-107); CO2 41 mmol/L (21-32); CREATININE 0.7 mg/dL (0.55-1.3); GLUCOSE,RANDOM 94 mg/dL (74-106); MAGNESIUM 1.5 mg/dL (1.8-2.4); N-TERMINAL BNP 124.7 pg/ml (5-125); POTASSIUM 3.1 mmol/L (3.5-5.1); SGOT/AST 16 U/L (15-37); SGPT/ALT 29 U/L (13-61); SODIUM 135 mmol/L (136-145)
[2018-07-13] MEDS ORDERED: MAGNESIUM SULF 50% (8.12 MEQ/2 ML-1 GM VIAL) IVPB ONE (08:48)
[2018-07-13 08:51] LABS: PHOSPHOROUS 0.4 mg/dL (2.5-4.9)
[2018-07-13] MEDS ORDERED: KCL 10 MEQ IVPB 10 MEQ/100 ML INFUS.BAG IVPB SCH (09:00)
[2018-07-13] MEDS ORDERED: POTASSIUM PHOSPHATE 45 MM in SODIUM CHLORIDE 500 ML IVPB ONE (09:00)
[2018-07-13] MEDS ORDERED: PT OWN MED DRAWER 7, Y5N ONE (09:02)
[2018-07-13] MEDS: MUPIROCIN 2% TOPICAL OINTMENT FOR DECOLONIZATION NS SCH ×2 (09:20→21:49)
[2018-07-13] MEDS ORDERED: PANTOPRAZOLE SODIUM 40 MG VIAL IVPUSH SCH (10:00)
[2018-07-13] MEDS ORDERED: METOPROLOL TARTRATE 5 MG/5 ML VIAL IVPUSH ONE (10:29)
--- NOTE | 2018-07-13 11:13 | CONSULT ---
Consult - text type - Consultation Consultation Note: NEUROLOGY CONSULT APPRECIATED: Events reviewed and discussed with staff. Consults read and appreciated This 47 yo male from [facility] with PMHX of Chronic morbid obesity,BONY, COPD, CHF , HTN, HLD, hyperthyroidism, and DVT is maintained on: albuterol, arformoterol, Vitamin D, furosemide, methimazole, pantoprazole, rivaroxaban, atorvastatin, diltiazem, and prednisone. Reportedly recently discharged from [facility] in which he was intubated for pneumonia. Returned to hospital initially for high K+ of 6.8 at [place] associated with the development of lethargy. While in ED, began to go into respiratory distress, unchanged with bipap, requiring sedation and intubation - now in ICU. Chest xray pos for infiltrate vs. atelectacic at left base and started on Zoysn , Levaquin and Solumedrol. Pt remains on sedation with propofol. Given Ativan 2mg IVP this am for reports of generalized shaking, resolved after 2 minutes. K 5.4 ->3.1 WBC 8.4 UA WBC=2 Awaiting BC x 2. STACIA: T 101.2. Obese. Cor Reg. No bruit. On Vent. Aguilera in-situ. - Kernig's NEURO: Exam ON Propofol. No spontaneous respirations. Spontaneous eye opening and opens eyes to name. Grimace to name and sternal rub. Pupils pinpoint 2-3mm and reactive. + /+ Corneals EOM's present to Doll's head No ankle clonus. Reflexes 1+ throughout. Plantars silent. Grimaces to pinch in all four's and exhibits stereotyped clonic mov't of each limb stimulated. Impression: 1. Toxic-Metabolic Encephalopathy due to exacerbation of chronic hypercapnia. 2. Pickwickian Syndrome Suggest: Continue antibiotics and hydration. Observe off seizure medications at this time- stimulus-induced mov' ts described above are NOT seizures. ID and pulmonary consult appreciated Advise lowering of sedatives including propofol Trial wean off vent as tolerated towards chronic BiPAP respiratory support. Bariatric surgery consultation. Thank you very much, Ángel Acosta MD
--- NOTE | 2018-07-13 11:31 | PN ---
Progress Note, Physician Chief Complaint: patient seen and examined in icu came to hospital for hyperkalemia and then went into respiratory distress and intubated now in icu sedated intubated temp 101.2 went into v tachy labs noted and lytes repleted - Current Medication List Current Medications: Active Medications Chlorhexidine Gluconate (Hibiclens For Decolonization -) 1 applic TP HS PALLAVI Propofol (Diprivan -) 1,000,000 mcg in 100 mls @ 9.117 mls/hr IVPB TITR PALLAVI; Protocol Last Admin: 07/13/18 04:46 Dose: 30 mcg/kg/min, 27.352 mls/hr Midazolam HCl 100 mg/ Sodium (Chloride) 100 mls @ 1 mls/hr IVPB TITR PALLAVI; Protocol Last Titration: 07/13/18 00:06 Dose: 3 mg/hr, 3 mls/hr Piperacillin Sod/Tazobactam (Sod 3.375 gm/ Dextrose) 50 mls @ 100 mls/hr IVPB Q8H-IV PALLAVI; Protocol Piperacillin Sod/Tazobactam (Sod 3.375 gm/ Dextrose) 50 mls @ 100 mls/hr IVPB Q8H-IV PALLAVI; Protocol Stop: 07/13/18 18:29 Last Admin: 07/13/18 09:21 Dose: 100 mls/hr Levofloxacin (Levaquin 750 Mg Premixed Ivpb -) 750 mg in 150 mls @ 100 mls/hr IVPB HS PALLAVI; Protocol Last Admin: 07/13/18 04:04 Dose: 100 mls/hr Potassium Phosphate 45 mm/ (Sodium Chloride) 515 mls @ 85.833 mls/hr IVPB ONCE ONE Stop: 07/13/18 14:59 Last Admin: 07/13/18 09:19 Dose: 85.833 mls/hr Methylprednisolone Sodium Succinate (Solu-Medrol -) 60 mg IVPB Q8H-IV PALLAVI Last Admin: 07/13/18 09:20 Dose: 60 mg Mupirocin (Bactroban Ointment (For Decolonization) -) 1 applic NS BID PALLAVI Stop: 07/18/18 09:59 Last Admin: 07/13/18 09:20 Dose: 1 applic Pantoprazole Sodium (Protonix Iv) 20 mg IVPUSH DAILY PALLAVI Last Admin: 07/13/18 09:20 Dose: 40 mg Potassium Chloride (Potassium Chloride Oral Liquid) 40 meq PO BID [facility] Rivaroxaban (Xarelto -) 20 mg PO DAILY [facility] - Objective Vital Signs: Vital Signs Temperature 101.2 F H 07/13/18 10:00 Pulse Rate 136 H 07/13/18 10:54 Respiratory Rate 25 H 07/13/18 11:08 Blood Pressure 102/67 07/13/18 10:54 O2 Sat by Pulse Oximetry (%) 96 07/13/18 06:40 Constitutional: Yes: Calm Eyes: Yes: Other (intubated and sedated) Cardiovascular: Yes: Regular Rate and Rhythm, Tachycardia, S1, S2 Respiratory: Yes: Mechanically Ventilated Gastrointestinal: Yes: Normal Bowel Sounds, Soft Genitourinary: Yes: Aguilera Present Neurological: Yes: Other (sedated) Labs: CBC, BMP 07/13/18 07:00 07/13/18 07:56 INR, PTT INR 1.46 (0.83-1.09) H 07/13/18 07:00 Problem List - Problems (1) Acute respiratory failure Assessment/Plan: intubated sedated got vancomycin and levaquin dose for fever steroids holding off on albuterol given tachycardia npo dvt ppx Code(s): J96.00 - ACUTE RESPIRATORY FAILURE, UNSP W HYPOXIA OR HYPERCAPNIA (2) Tachycardia Assessment/Plan: lytes repleted cardiac monitoring cardiology consult metoprolol iv push Code(s): R00.0 - TACHYCARDIA, UNSPECIFIED (3) Seizure Assessment/Plan: possible seizure activity neurology consult got ativan dose for possible seizure Code(s): R56.9 - UNSPECIFIED CONVULSIONS (4) Fever Assessment/Plan: ID evaluation zosyn/vancomycin cultures sent Code(s): R50.9 - FEVER, UNSPECIFIED (5) DVT (deep venous thrombosis) Assessment/Plan: on xarelto Code(s): I82.409 - ACUTE EMBOLISM AND THOMBOS UNSP DEEP VN UNSP LOWER EXTREMITY
[2018-07-13] MEDS ORDERED: ACETAMINOPHEN 1000 MG/100 ML VIAL (NON FORMULARY) IVPB ONE (11:36)
--- NOTE | 2018-07-13 11:44 | ECHO ---
Name: JAY ALBERTO JR Exam:Adult Echocardiogram Study Date: 07/13/2018 10:06 AM Age: 47 yrs Reason For Study: D CHF Height: 67 in Weight: 335 lb BSA: 2.5 m2 MMode/2D Measurements & Calculations Ao root diam: 3.2 cm LVOT diam: 2.0 cm LA dimension: 2.7 cm Procedure The study was technically difficult with many images being suboptimal in quality. The study was non-d iagnostic in quality. No definitive statements could be made about this echo due to extremely poor acoustic win dows. Left Ventricle The left ventricular size, thickness and function are normal. The left ventricular ejection fraction is normal. Regional wall motion abnormalities cannot be excluded due to limited visualization. Right Ventricle The right ventricle is not well visualized. Atria The left atrium is not well visualized. Right atrium not well visualized. Mitral Valve The mitral valve is not well visualized. Tricuspid Valve The tricuspid valve is not well visualized. Aortic Valve The aortic valve is not well visualized. Pulmonic Valve The pulmonic valve is not well visualized. Great Vessels The aortic root is normal size. Pericardium/Pleura There is no pericardial effusion. Interpretation Summary The study was technically difficult with many images being suboptimal in quality. The left ventricular size, thickness and function are normal Regional wall motion abnormalities cannot be excluded due to limited visualization. The left ventricular ejection fraction is normal. The mitral valve is not well visualized. The tricuspid valve is not well visualized. The aortic valve is not well visualized. The pulmonic valve is not well visualized. The study was non-diagnostic in quality. No definitive statements could be made about this echo due t o extremely poor acoustic windows. MD Michael Schmidt 07/13/2018 11:43 AM
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
[2018-07-13] MEDS ORDERED: ALBUTEROL SO4 2.5/IPRATROPIUM 0.5 INH SOL 3 ML VIAL.NEB. NEB SCH (12:00)
[2018-07-13] MEDS ORDERED: ENOXAPARIN NA (PORCINE) 80 MG/0.8 ML DISP.SYRIN SQ SCH (12:00)
--- NOTE | 2018-07-13 12:52 | PN ---
Teaching Attending Note Name of Resident: Andressa Boo ATTENDING PHYSICIAN STATEMENT I saw and evaluated the patient. I reviewed the resident's note and discussed the case with the resident. I agree with the resident's findings and plan as documented. SUBJECTIVE: Pt seen and examined in the ICU. Remains intubated, sedated. Febrile overnight. No pressors. Ectopy this AM. OBJECTIVE: Vital Signs Period Temp Pulse Resp BP Sys/[place] Pulse Ox Last 24 Hr 98.0 F-101.2 F 103-136 12-28 96-141/58-111 70-100 Intake & Output 07/10/18 07/11/18 07/12/18 07/13/18 23:59 23:59 23:59 23:59 Intake Total 279 Output Total 2600 Balance -2321 Weight 151.953 kg 159.835 kg Gen: intubated, sedated Heart: RRR Lung: distant breath sounds Abd: soft, nontender, obese Ext: no edema CBC, BMP 07/13/18 07:00 07/13/18 07:56 ABG Results ABG pH 7.66 (7.35-7.45) H* 07/13/18 02:50 ABG pCO2 at Pt Temp 40.8 mmHg (35-45) 07/13/18 02:50 ABG pO2 at Pt Temp 53.0 mmHg (80-105) L 07/13/18 02:50 ABG HCO3 46.2 mmol/L (22-27) H 07/13/18 02:50 ABG O2 Sat (Measured) 94.6 % (95-98) L 07/13/18 02:50 ABG O2 Content 16.6 % vol (15-22) 07/13/18 02:50 ABG Base Excess 21.3 meq/l (-2-2) H 07/13/18 02:50 Active Medications Chlorhexidine Gluconate (Hibiclens For Decolonization -) 1 applic TP HS PALLAVI Enoxaparin Sodium (Lovenox -) 160 mg SQ BID PALLAVI Propofol (Diprivan -) 1,000,000 mcg in 100 mls @ 9.117 mls/hr IVPB TITR PALLAVI; Protocol Last Admin: 07/13/18 04:46 Dose: 30 mcg/kg/min, 27.352 mls/hr Midazolam HCl 100 mg/ Sodium (Chloride) 100 mls @ 1 mls/hr IVPB TITR PALLAVI; Protocol Last Titration: 07/13/18 00:06 Dose: 3 mg/hr, 3 mls/hr Piperacillin Sod/Tazobactam (Sod 3.375 gm/ Dextrose) 50 mls @ 100 mls/hr IVPB Q8H-IV PALLAVI; Protocol Piperacillin Sod/Tazobactam (Sod 3.375 gm/ Dextrose) 50 mls @ 100 mls/hr IVPB Q8H-IV PALLAVI; Protocol Stop: 07/13/18 18:29 Last Admin: 07/13/18 09:21 Dose: 100 mls/hr Levofloxacin (Levaquin 750 Mg Premixed Ivpb -) 750 mg in 150 mls @ 100 mls/hr IVPB HS PALLAVI; Protocol Last Admin: 07/13/18 04:04 Dose: 100 mls/hr Potassium Phosphate 45 mm/ (Sodium Chloride) 515 mls @ 85.833 mls/hr IVPB ONCE ONE Stop: 07/13/18 14:59 Last Admin: 07/13/18 09:19 Dose: 85.833 mls/hr Methylprednisolone Sodium Succinate (Solu-Medrol -) 60 mg IVPB Q8H-IV PALLAVI Last Admin: 07/13/18 09:20 Dose: 60 mg Mupirocin (Bactroban Ointment (For Decolonization) -) 1 applic NS BID PALLAVI Stop: 07/18/18 09:59 Last Admin: 07/13/18 09:20 Dose: 1 applic Pantoprazole Sodium (Protonix Iv) 20 mg IVPUSH DAILY [facility] Last Admin: 07/13/18 09:20 Dose: 40 mg Potassium Chloride (Potassium Chloride Oral Liquid) 40 meq PO BID PALLAVI Rivaroxaban (Xarelto -) 20 mg PO DAILY [facility] ASSESSMENT AND PLAN: Acute on Chronic Hypoxic and Hypercapneic Respiratory Failure Acute COPD Exacerbation LV Diastolic Dysfunction r/o Pneumonia Morbid Obesity BONY/OHS HTN h/o DVT - continue medrol - inhaled bronchodilators - adjusted vent settings - O2 to keep Spo2 >90% - empiric antibiotics - f/u cultures - hold lasix today - monitor urine output, creatinine - replete lytes - hold sedation in AM to assess mental status - spontaneous breathing trials as tolerated when mental status improved - continue anticoagulation - continue ICU monitoring critical care time spent in reviewing chart, evaluating patient and formulating plan 35 min
--- NOTE | 2018-07-13 12:59 | PN ---
Physical Exam: SUBJECTIVE: Patient seen and examined. Pt brought in from [place] for elevated K- 6.8 K found in ED to be 5.3 yesterday. Pt initially conversing in ED then desaturated was placed Bipap, and finally intubated. Pt appeared to have had a seizure and noted to be febrile. This am was tachy up to 140 when taken off sedation. Thought initially to be vtach and received lopressor (strong pulses present). Per Cardio- Dr Schmidt- it was sinus tachy. OBJECTIVE: Vital Signs Period Temp Pulse Resp BP Sys/[place]all Pulse Ox Last 24 Hr 98.0 F-101.2 F 103-136 12-28 96-141/58-111 70-100 Vital Signs Temp 101.2 F H 07/13/18 10:00 Pulse 136 H 07/13/18 10:54 Resp 25 H 07/13/18 11:08 BP 102/67 07/13/18 10:54 Pulse Ox 96 07/13/18 06:40 Intake & Output 07/12/18 07/13/18 07/13/18 23:59 11:59 23:59 Intake Total 279 Output Total 2600 Balance -2321 Weight 151.953 kg 159.835 kg Intake: IV 129 DIPRIVAN - 1,000,000 mcg 120 In 100 ml @ 10 MCG/KG/MIN 9.117 mls/hr IVPB TITR PALLAVI Rx#:[id number] Versed - 100 mg In Normal 9 Saline - 100 ml @ 1 MG/ HR 1 mls/hr IVPB TITR PALLAVI Rx#:[id number] IVPB 150 Output: Urine 2600 [place] 2600 Other: Voiding Method Urinal Indwelling Catheter Height 1.7 m 1.7 m Body Mass Index (BMI) 52.4 56.0 Weight Measurement Method Built in Stretcher Scale GENERAL: The patient is Morbidly obese, sedated and intubated ENT: ETT-AC-18/500/35/5 LUNGS: Mechanically ventilated HEART: Tachy, S1, S2 ABDOMEN: Obese, Soft, EXTREMITIES: Pulses present NEUROLOGICAL: Sedated and intubated PSYCH: Unable to assess CBC, BMP 07/13/18 07:00 07/13/18 07:56 Laboratory Results - last 24 hr 07/12/18 07/12/18 07/12/18 01:57 15:08 15:08 WBC 7.2 Corrected WBC (auto) RBC 4.51 Hgb 13.4 Hct 42.1 MCV 93.3 MCH 29.6 MCHC 31.8 L RDW 15.9 D Plt Count 121 L D MPV 7.9 D Absolute Neuts (auto) Absolute Lymphs (auto) Absolute Monos (auto) Absolute Eos (auto) Absolute Basos (auto) Add Manual Diff Neutrophils % Lymphocytes % Monocytes % Eosinophils % Basophils % Nucleated RBC % Platelet Estimate Platelet Comment Normal RBC Morphology PT with INR INR PTT (Actin FS) Anticoagulation Therapy Puncture Site ABG pH ABG pCO2 at Pt Temp ABG pO2 at Pt Temp ABG HCO3 ABG O2 Sat (Measured) ABG O2 Content ABG Base Excess [place] Test Carboxyhemoglobin Methemoglobin O2 Delivery Device Oxygen Flow Rate Vent Mode Vent Rate Mechanical Rate PEEP Pressure Support Vent Sodium Cancelled Potassium Cancelled Chloride Cancelled Carbon Dioxide Cancelled Anion Gap Cancelled BUN Cancelled Creatinine Cancelled Creat Clearance w eGFR Cancelled POC Glucometer Random Glucose Cancelled Lactic Acid Calcium Cancelled Phosphorus Magnesium Total Bilirubin Cancelled AST Cancelled ALT Cancelled Alkaline Phosphatase Cancelled Creatine Kinase Troponin I Cancelled B-Natriuretic Peptide Total Protein Cancelled Albumin Cancelled Urine Color Yellow Urine Appearance Clear Urine pH 8.5 H D Ur Specific [place] 1.020 Urine Protein 1+ H Urine Glucose (UA) Negative Urine Ketones 2+ H Urine Blood Negative Urine Nitrite Negative Urine Bilirubin Negative Urine Urobilinogen 1.0 Ur Leukocyte Esterase Negative Urine WBC (Auto) 2 Urine RBC (Auto) 1 Urine Casts (Auto) 2 U Epithel Cells (Auto) 2 Urine Crystals (Auto) 0 Urine Bacteria (Auto) 4 Urine Yeast (Auto) 0 07/12/18 07/12/18 07/12/18 16:10 16:20 16:30 WBC Corrected WBC (auto) RBC Hgb Hct MCV MCH MCHC RDW Plt Count MPV Absolute Neuts (auto) Absolute Lymphs (auto) Absolute Monos (auto) Absolute Eos (auto) Absolute Basos (auto) Add Manual Diff Neutrophils % Lymphocytes % Monocytes % Eosinophils % Basophils % Nucleated RBC % Platelet Estimate Platelet Comment Normal RBC Morphology PT with INR INR PTT (Actin FS) Anticoagulation Therapy No Result Required. No Result Required. Puncture Site Right radial Right radial ABG pH 7.19 L* 7.22 L ABG pCO2 at Pt Temp 150 H* 128 H* ABG pO2 at Pt Temp 52.3 L 61.9 L ABG HCO3 54.7 H 50.1 H ABG O2 Sat (Measured) 81.5 L 88.9 L ABG O2 Content 15.9 16.3 ABG Base Excess 19.1 H 16.7 H [place] Test Positive Positive Carboxyhemoglobin 1.6 Methemoglobin 0.5 O2 Delivery Device Bipap Bipap Oxygen Flow Rate 40% 40% Vent Mode No Result Required. No Result Required. Vent Rate No Result Required. No Result Required. Mechanical Rate No Result Required. No Result Required. PEEP Pressure Support Vent No Result Required. No Result Required. Sodium 141 Potassium 5.4 H Chloride 91 L Carbon Dioxide > 45 H Anion Gap 5 L BUN 13 Creatinine 0.7 Creat Clearance w eGFR 120.88 POC Glucometer Random Glucose 107 H Lactic Acid Calcium 9.2 Phosphorus Magnesium Total Bilirubin 0.8 AST 10 L ALT 31 Alkaline Phosphatase 114 Creatine Kinase Troponin I B-Natriuretic Peptide Total Protein 6.7 Albumin 3.5 Urine Color Urine Appearance Urine pH Ur Specific [place] Urine Protein Urine Glucose (UA) Urine Ketones Urine Blood Urine Nitrite Urine Bilirubin Urine Urobilinogen Ur Leukocyte Esterase Urine WBC (Auto) Urine RBC (Auto) Urine Casts (Auto) U Epithel Cells (Auto) Urine Crystals (Auto) Urine Bacteria (Auto) Urine Yeast (Auto) 07/12/18 07/12/18 07/12/18 16:30 19:42 21:25 WBC Corrected WBC (auto) RBC Hgb Hct MCV MCH MCHC RDW Plt Count MPV Absolute Neuts (auto) Absolute Lymphs (auto) Absolute Monos (auto) Absolute Eos (auto) Absolute Basos (auto) Add Manual Diff Neutrophils % Lymphocytes % Monocytes % Eosinophils % Basophils % Nucleated RBC % Platelet Estimate Platelet Comment Normal RBC Morphology PT with INR INR PTT (Actin FS) Anticoagulation Therapy No Result Required. No Result Required. Puncture Site Right radial Right radial ABG pH 7.29 L 7.23 L ABG pCO2 at Pt Temp 113 H* 135 H* ABG pO2 at Pt Temp 50.9 L 64.1 L ABG HCO3 52.5 H 54.5 H ABG O2 Sat (Measured) 84.9 L 89.7 L ABG O2 Content 16.4 17.0 ABG Base Excess 19.7 H 20.4 H [place] Test Positive Positive Carboxyhemoglobin Methemoglobin O2 Delivery Device Bipap No Result Required. Oxygen Flow Rate 25% 40 Vent Mode No Result Required. S/t Vent Rate No Result Required. 20 Mechanical Rate No Result Required. No Result Required. PEEP Pressure Support Vent No Result Required. 22/18 Sodium Potassium Chloride Carbon Dioxide Anion Gap BUN Creatinine Creat Clearance w eGFR POC Glucometer Random Glucose Lactic Acid Calcium Phosphorus Magnesium Total Bilirubin AST ALT Alkaline Phosphatase Creatine Kinase 18 L Troponin I < 0.02 B-Natriuretic Peptide Total Protein Albumin Urine Color Urine Appearance Urine pH Ur Specific [place] Urine Protein Urine Glucose (UA) Urine Ketones Urine Blood Urine Nitrite Urine Bilirubin Urine Urobilinogen Ur Leukocyte Esterase Urine WBC (Auto) Urine RBC (Auto) Urine Casts (Auto) U Epithel Cells (Auto) Urine Crystals (Auto) Urine Bacteria (Auto) Urine Yeast (Auto) 07/13/18 07/13/18 07/13/18 00:00 01:25 02:50 WBC Corrected WBC (auto) RBC Hgb Hct MCV MCH MCHC RDW Plt Count MPV Absolute Neuts (auto) Absolute Lymphs (auto) Absolute Monos (auto) Absolute Eos (auto) Absolute Basos (auto) Add Manual Diff Neutrophils % Lymphocytes % Monocytes % Eosinophils % Basophils % Nucleated RBC % Platelet Estimate Platelet Comment Normal RBC Morphology PT with INR INR PTT (Actin FS) Anticoagulation Therapy No Result Required. Puncture Site Right radial ABG pH 7.49 H ABG pCO2 at Pt Temp 62.5 H ABG pO2 at Pt Temp 51.8 L ABG HCO3 47.5 H ABG O2 Sat (Measured) 91.7 L ABG O2 Content 16.5 ABG Base Excess 20.0 H [place] Test Positive Carboxyhemoglobin Methemoglobin O2 Delivery Device No Result Required. Oxygen Flow Rate 35% Vent Mode A/c Vent Rate 22 Mechanical Rate No Result Required. PEEP 5.0 Pressure Support Vent 500 Sodium Potassium Chloride Carbon Dioxide Anion Gap BUN Creatinine Creat Clearance w eGFR POC Glucometer 139 Random Glucose Lactic Acid Calcium Phosphorus Magnesium Total Bilirubin AST ALT Alkaline Phosphatase Creatine Kinase Cancelled Troponin I Cancelled B-Natriuretic Peptide Cancelled Total Protein Albumin Urine Color Urine Appearance Urine pH Ur Specific [place] Urine Protein Urine Glucose (UA) Urine Ketones Urine Blood Urine Nitrite Urine Bilirubin Urine Urobilinogen Ur Leukocyte Esterase Urine WBC (Auto) Urine RBC (Auto) Urine Casts (Auto) U Epithel Cells (Auto) Urine Crystals (Auto) Urine Bacteria (Auto) Urine Yeast (Auto) 07/13/18 07/13/18 07/13/18 02:50 02:50 02:50 WBC Cancelled Corrected WBC (auto) Cancelled RBC Cancelled Hgb Cancelled Hct Cancelled MCV Cancelled MCH Cancelled MCHC Cancelled RDW Cancelled Plt Count Cancelled MPV Cancelled Absolute Neuts (auto) Cancelled Absolute Lymphs (auto) Cancelled Absolute Monos (auto) Cancelled Absolute Eos (auto) Cancelled Absolute Basos (auto) Cancelled Add Manual Diff Cancelled Neutrophils % Cancelled Lymphocytes % Cancelled Monocytes % Cancelled Eosinophils % Cancelled Basophils % Cancelled Nucleated RBC % Cancelled Platelet Estimate Cancelled Platelet Comment Cancelled Normal RBC Morphology Cancelled PT with INR INR PTT (Actin FS) Anticoagulation Therapy No Result Required. Puncture Site Right radial ABG pH 7.66 H* ABG pCO2 at Pt Temp 40.8 ABG pO2 at Pt Temp 53.0 L ABG HCO3 46.2 H ABG O2 Sat (Measured) 94.6 L ABG O2 Content 16.6 ABG Base Excess 21.3 H [place] Test Positive Carboxyhemoglobin Methemoglobin O2 Delivery Device A/c Oxygen Flow Rate 35% Vent Mode No Result Required. Vent Rate No Result Required. Mechanical Rate No Result Required. PEEP 5.0 Pressure Support Vent 500 Sodium Cancelled Potassium Cancelled Chloride Cancelled Carbon Dioxide Cancelled Anion Gap Cancelled BUN Cancelled Creatinine Cancelled Creat Clearance w eGFR Cancelled POC Glucometer Random Glucose Cancelled Lactic Acid Calcium Cancelled Phosphorus Cancelled Magnesium Cancelled Total Bilirubin Cancelled AST Cancelled ALT Cancelled Alkaline Phosphatase Cancelled Creatine Kinase Troponin I B-Natriuretic Peptide Total Protein Cancelled Albumin Cancelled Urine Color Urine Appearance Urine pH Ur Specific [place] Urine Protein Urine Glucose (UA) Urine Ketones Urine Blood Urine Nitrite Urine Bilirubin Urine Urobilinogen Ur Leukocyte Esterase Urine WBC (Auto) Urine RBC (Auto) Urine Casts (Auto) U Epithel Cells (Auto) Urine Crystals (Auto) Urine Bacteria (Auto) Urine Yeast (Auto) 07/13/18 07/13/18 07/13/18 07:00 07:00 07:00 WBC 8.4 Corrected WBC (auto) RBC 4.47 Hgb 13.3 Hct 40.6 MCV 90.9 MCH 29.8 MCHC 32.8 RDW 14.8 Plt Count 98 L MPV 8.3 Absolute Neuts (auto) 7.6 Absolute Lymphs (auto) Absolute Monos (auto) Absolute Eos (auto) Absolute Basos (auto) Add Manual Diff Neutrophils % 90.2 H Lymphocytes % 3.1 L D Monocytes % 6.5 Eosinophils % 0.1 D Basophils % 0.1 Nucleated RBC % 0 Platelet Estimate Platelet Comment Normal RBC Morphology PT with INR 17.30 H INR 1.46 H PTT (Actin FS) 34.0 Anticoagulation Therapy Puncture Site ABG pH ABG pCO2 at Pt Temp ABG pO2 at Pt Temp ABG HCO3 ABG O2 Sat (Measured) ABG O2 Content ABG Base Excess [place] Test Carboxyhemoglobin Methemoglobin O2 Delivery Device Oxygen Flow Rate Vent Mode Vent Rate Mechanical Rate PEEP Pressure Support Vent Sodium Potassium Chloride Carbon Dioxide Anion Gap BUN Creatinine Creat Clearance w eGFR POC Glucometer Random Glucose Lactic Acid 1.7 Calcium Phosphorus Magnesium Total Bilirubin AST ALT Alkaline Phosphatase Creatine Kinase Troponin I B-Natriuretic Peptide Total Protein Albumin Urine Color Urine Appearance Urine pH Ur Specific [place] Urine Protein Urine Glucose (UA) Urine Ketones Urine Blood Urine Nitrite Urine Bilirubin Urine Urobilinogen Ur Leukocyte Esterase Urine WBC (Auto) Urine RBC (Auto) Urine Casts (Auto) U Epithel Cells (Auto) Urine Crystals (Auto) Urine Bacteria (Auto) Urine Yeast (Auto) 07/13/18 07:56 WBC Corrected WBC (auto) RBC Hgb Hct MCV MCH MCHC RDW Plt Count MPV Absolute Neuts (auto) Absolute Lymphs (auto) Absolute Monos (auto) Absolute Eos (auto) Absolute Basos (auto) Add Manual Diff Neutrophils % Lymphocytes % Monocytes % Eosinophils % Basophils % Nucleated RBC % Platelet Estimate Platelet Comment Normal RBC Morphology PT with INR INR PTT (Actin FS) Anticoagulation Therapy Puncture Site ABG pH ABG pCO2 at Pt Temp ABG pO2 at Pt Temp ABG HCO3 ABG O2 Sat (Measured) ABG O2 Content ABG Base Excess [place] Test Carboxyhemoglobin Methemoglobin O2 Delivery Device Oxygen Flow Rate Vent Mode Vent Rate Mechanical Rate PEEP Pressure Support Vent Sodium 135 L Potassium 3.1 L Chloride 89 L Carbon Dioxide 41 H Anion Gap 6 L BUN 15 Creatinine 0.7 Creat Clearance w eGFR 120.88 POC Glucometer Random Glucose 94 Lactic Acid Calcium 9.0 Phosphorus 0.4 L* Magnesium 1.5 L Total Bilirubin 2.2 H AST 16 ALT 29 Alkaline Phosphatase 98 Creatine Kinase 36 Troponin I < 0.02 B-Natriuretic Peptide 124.7 Total Protein 6.0 L Albumin 3.1 L Urine Color Urine Appearance Urine pH Ur Specific [place] Urine Protein Urine Glucose (UA) Urine Ketones Urine Blood Urine Nitrite Urine Bilirubin Urine Urobilinogen Ur Leukocyte Esterase Urine WBC (Auto) Urine RBC (Auto) Urine Casts (Auto) U Epithel Cells (Auto) Urine Crystals (Auto) Urine Bacteria (Auto) Urine Yeast (Auto) Active Medications Generic Name Dose Route Start Last Admin Trade Name Long PRN Reason Stop Dose Admin Chlorhexidine Gluconate 1 applic 07/13/18 22:00 Hibiclens For Decolonization - TP HS PALLAVI Enoxaparin Sodium 160 mg 07/13/18 12:30 Lovenox - SQ BID PALLVAI Propofol 1,000,000 mcg in 100 mls @ 9.117 mls/hr 07/12/18 23:00 07/13/18 04: 46 Diprivan - IVPB 30 mcg/kg/min TITR PALLAVI 27.352 mls/hr Administration Protocol 10 MCG/KG/MIN Midazolam HCl 100 mg/ Sodium 100 mls @ 1 mls/hr 07/12/18 23:00 07/13/18 00:06 Chloride IVPB 3 mg/hr TITR PALLAVI 3 mls/hr Titration Protocol 1 MG/HR Piperacillin Sod/Tazobactam 50 mls @ 100 mls/hr 07/14/18 02:00 Sod 3.375 gm/ Dextrose IVPB Q8H-IV PALLAVI Protocol Piperacillin Sod/Tazobactam 50 mls @ 100 mls/hr 07/13/18 02:00 07/13/18 09:21 Sod 3.375 gm/ Dextrose IVPB 07/13/18 18:29 100 mls/hr Q8H-IV PALLAVI Administration Protocol Levofloxacin 750 mg in 150 mls @ 100 mls/hr 07/13/18 02:00 07/13/18 04:04 Levaquin 750 Mg Premixed Ivpb - IVPB 100 mls/hr HS PALLAVI Administration Protocol Potassium Phosphate 45 mm/ 515 mls @ 85.833 mls/hr 07/13/18 09:00 07/13/18 09 :19 Sodium Chloride IVPB 07/13/18 14:59 85.833 mls/hr ONCE ONE Administration Methylprednisolone Sodium Succinate 60 mg 07/12/18 20:45 07/13/18 09:20 Solu-Medrol - IVPB 60 mg Q8H-IV PALLAVI Administration Mupirocin 1 applic 07/13/18 10:00 07/13/18 09:20 Bactroban Ointment (For Decolonization) - NS 07/18/18 09:59 1 applic BID PALLAVI Administration Pantoprazole Sodium 20 mg 07/13/18 10:00 07/13/18 09:20 Protonix Iv IVPUSH 40 mg DAILY PALLAVI Administration Potassium Chloride 40 meq 07/13/18 11:00 Potassium Chloride Oral Liquid PO BID PALLAVI Rivaroxaban 20 mg 07/13/18 11:00 Xarelto - PO DAILY PALLAVI ASSESSMENT/PLAN: Pt is a morbidly obese 47 yo M with signif PMHx of Hyperthyroidism, HLD, HTN, chronic back pain, Severe BONY, DVT, COPD (3L), DHF, anemia, UGI bleed, brought in from [facility] for K-6.8, K found to 5.4 in Ed, received lasix 60mg for congestive changes per CXR, found to be inrigors/seizing yesterday, received 2mg ativan, noted to be tachy this am off sedation, received 10mg lopressor #Neuro Sedated and intubated Keep sedated on versed/ propofol Sedation vacation tomorrow am to assess mental status No weaning trial this am #Resp Intubated/ sedated - RR reduced Pt alkalotic to 7.66 with high RR ABG stat pending Cont methyl pred Stop albuterol- tachycardia stop formetrol-tachycardia #Cardio Per cardio- Sinus tachy this am Received lopressor Resume methimazole 10mg via NGT TSH this am 0.39 T3/Free T4 levels in am Xarelto 20mg daily via NGT May hold lovenox therapeutic dose #Endo Hyperthyroidism Resume methimazole #ID Pt on levoflox -to cover for aspiration PNA #Renal Kphosh-45mmol Kcl 40meq NGT Repeat CMP- this pm Follw FEN Hold lasix Monitor lytes, replete as needed NPO PPx Protonix 40mg iv daily Dispo ICU level care Visit type - Emergency Visit Emergency Visit: Yes ED Registration Date: 07/12/18 Care time: The patient presented to the Emergency Department on the above date and was hospitalized for further evaluation of their emergent condition. - New Patient This patient is new to me today: Yes Date on this admission: 07/13/18 - Critical Care Critical Care patient: Yes Total Critical Care Time (in minutes): 40 Critical Care Statement: The care of this patient involved high complexity decision making to prevent further life threatening deterioration of the patient 's condition and/or to evaluate & treat vital organ system(s) failure or risk of failure. - Discharge Referral Referred to [facility] Med P.C.: No
[2018-07-13] MEDS ORDERED: PNEUMOC 13-VAL CONJ-DIP CRM/PF 0.5 ML DISP.SYRIN IM ONE (13:10)
[2018-07-13] MEDS: ENOXAPARIN NA (PORCINE) 80 MG/0.8 ML DISP.SYRIN SQ SCH ×2 (13:23→21:48)
[2018-07-13] MEDS ORDERED: PNEUMOCOCCAL 23 VACCINE 0.5 ML VIAL IM ONE (14:00)
[2018-07-13] MEDS: POTASSIUM CHLORIDE ORAL LIQUID 20 MEQ/15 ML PO SCH ×2 (16:38→21:48)
[2018-07-13] MEDS: METHIMAZOLE 10 MG TABLET (FP) PO SCH (16:40)
[2018-07-13] MEDS: RIVAROXABAN 20 MG TABLET PO SCH (16:45)
--- NOTE | 2018-07-13 16:48 | PN ---
Progress Note (short form) - Note Progress Note: ID consult dictated imp/reccd 47 yo man with pmh of COPD home oxygen, dvt, recent admission at [facility] - intubated and treated for pneumonia- sent to [place] 06/28 for rehab admitted 07/12 with hyperkalemia and copd exacerbation developed hypercapneic respiratory failure and was intubated overnight developed fever overnight as well now intubated and sedated history from the chart hypercapneic respiratory failure fever cannot r/o pneumonia ?aspiration, healthcare associated morbid obesity-overall difficult physical exam and imaging due to patient's size vanco/zosyn f/u cultures if sputum negative for MRSA, can d/c vancomycin legionella urinary antigen is negative- will d/c levaquin Problem List - Problems (1) Acute on chronic respiratory failure with hypoxia and hypercapnia Code(s): J96.21 - ACUTE AND CHRONIC RESPIRATORY FAILURE WITH HYPOXIA; J96.22 - ACUTE AND CHRONIC RESPIRATORY FAILURE WITH HYPERCAPNIA (2) Fever Code(s): R50.9 - FEVER, UNSPECIFIED (3) Pneumonia Code(s): J18.9 - PNEUMONIA, UNSPECIFIED ORGANISM (4) Morbid obesity with BMI of 50.0-59.9, adult Code(s): Z68.43 - BODY MASS INDEX (BMI) 50-59.9, ADULT
[2018-07-13] MEDS: VANCOMYCIN HCL 1,500 MG in DEXTROSE 5%-WATER - 500 ML IVPB SCH (17:19)
--- NOTE | 2018-07-13 18:21 | CONS ---
DATE OF CONSULTATION: DATE OF DICTATION: 07/13/2018 INFECTIOUS DISEASE CONSULTATION REQUESTED BY: Glenny Randall MD This is a 47-year-old man from [facility]. He has a history of COPD, he is on 3 L oxygen at home; morbid obesity, hyperthyroidism who was recently at [facility] where he was intubated and treated for pneumonia. He was discharged to [facility] it looks like on June 28, so he has been there 2 weeks. He was sent over to the hospital with hyperkalemia, potassium is 6.8, and COPD exacerbation. He required BiPAP. He was very hypercapnic and ultimately required infiltrate. He received multiple antibiotics overnight including Zosyn, Levaquin, and vancomycin. I am asked to see him for further evaluation. He is currently sedated and intubated, and the entire history is from the chart. PAST MEDICAL HISTORY: Notable for history of obstructive sleep apnea, COPD, diastolic CHF, anemia, upper GI bleed, hypertension, hyperthyroidism, glaucoma, DVT, nephrolithiasis, and morbid obesity. SURGICAL HISTORY: Unknown. SOCIAL HISTORY: Currently residing [facility]. Former smoker. Quit in 2016. ALLERGIES: HE IS ALLERGIC TO ASPIRIN, MILK, MUSHROOM, AND TURKEY. MEDICATIONS: Include albuterol inhaler, Brovana, vitamin D, Lasix, methimazole, Protonix, Xarelto, vitamin B complex, Timoptic eye drops, Lipitor, multivitamins, DuoNeb, Cardizem, Colace, Trusopt eye drops, MiraLAX, and prednisone. REVIEW OF SYSTEMS: Not available. PHYSICAL EXAMINATION: Vital Signs: His T-max is 101.2, current temperature is 100.3, pulse 120, blood pressure 111/84, respiratory rate 21. HEENT: He is normocephalic. His eyes are anicteric. Neck: Very enlarged, difficult to palpate anything. He is orally intubated. Lungs: Diminished breath sounds at the bases. Heart: He has distant heart sounds. Abdomen: Soft, cannot palpate any organomegaly. Extremities: He has venous stasis changes. He has good pulses bilaterally. No skin breakdown. LABORATORY DATA: Notable for white count of 8.4, hemoglobin 13.3, platelets of 98,000. BUN 15 and creatinine 0.7. LFTs are normal. Urinalysis is negative. CHEST X-RAY: Notable for questionable infiltrate versus atelectasis left base. IN SUMMARY: This is a 47-year-old man with past medical history of chronic obstructive pulmonary disease, home oxygen, obstructive sleep apnea, morbid obesity, hyperthyroidism who is admitted with hyperkalemia and chronic obstructive pulmonary disease exacerbation and intubated overnight. Now sedated as well. He has hypercapnic respiratory failure. He has fever. Cannot rule out pneumonia and possible aspiration, healthcare-associated, with influenza screen as well. His morbid obesity is making his overall examination and imaging difficult due to his size. Would treat him with vancomycin and Zosyn. Can stop the Levaquin as the Legionella urinary antigen is negative. Follow up cultures. I have asked the nurse to send the sputum culture. If it is negative, can stop the vancomycin. We will need to follow vancomycin levels closely. Further recommendations to follow. KETURAH PIERSON M.D. [id number]
[2018-07-13 21:08] LABS: ANION GAP 8 MMOL/L (8-16); BLOOD UREA NITROGEN 19 mg/dL (7-18); CALCIUM 8.7 mg/dL (8.5-10.1); CHLORIDE 89 mmol/L (98-107); CO2 40 mmol/L (21-32); CREATININE 1.1 mg/dL (0.55-1.3); GLUCOSE,RANDOM 156 mg/dL (74-106); MAGNESIUM 2.3 mg/dL (1.8-2.4); PHOSPHOROUS 3.3 mg/dL (2.5-4.9); POTASSIUM 3.8 mmol/L (3.5-5.1); SODIUM 137 mmol/L (136-145)
[2018-07-13] MEDS: CHLORHEXIDINE GLUCONATE 4% CLEANSER FOR DECOLONIZATION TP SCH (21:48)
[2018-07-13] MEDS ORDERED: ACETAMINOPHEN 1000 MG/100 ML VIAL (NON FORMULARY) IVPB PRN (22:00)
[2018-07-13] MEDS: MIDAZOLAM 100 MG in SODIUM CHLORIDE 100 ML IVPB SCH (23:14)
[2018-07-14] MEDS: methylPREDNISolone NA SUCC 40 MG/1 ML VIAL IVPB SCH ×3 (01:31→19:27)
[2018-07-14] MEDS ORDERED: PIPERACILLIN/TAZOB 3.375 GM 3.375 GM in DEXTROSE 5%-WATER - 50 ML IVPB SCH (02:00)
[2018-07-14] MEDS: PROPOFOL 1,000,000 MCG/100 ML VIAL IVPB SCH (04:07)
[2018-07-14] MEDS: VANCOMYCIN HCL 1,500 MG in DEXTROSE 5%-WATER - 500 ML IVPB SCH ×2 (04:07→19:06)
[2018-07-14 06:44] LABS: ARTERIAL BLD GAS O2 SATURATION 97.2 % (95-98); ARTERIAL BLOOD GAS BASE EXCESS 13.8 meq/l (-2-2); ARTERIAL BLOOD GAS PCO2 40.8 mmHg (35-45); ARTERIAL BLOOD GAS PO2 81.8 mmHg (80-105); ARTERIAL BLOOD GAS pH 7.57 (7.35-7.45)
[2018-07-14 06:49] LABS: ALLENS TEST POSITIVE
--- NOTE | 2018-07-14 08:31 | PN ---
Physical Exam: SUBJECTIVE: Patient seen and examined, intubated and sedated, unable to provide history. OBJECTIVE: Vital Signs Period Temp Pulse Resp BP Sys/Woodall Pulse Ox Last 24 Hr 98.7 F-101.2 F 100-136 16-25 102-123/67-98 98-100 GENERAL: The patient is intubated and sedated, resting comfortably. morbidly obese. HEAD: Normal with no signs of trauma. EYES: PERRL, extraocular movements intact, sclera anicteric, conjunctiva clear. No ptosis. ENT: Ears normal, nares patent, oropharynx clear without exudates, moist mucous membranes. NECK: Trachea midline, full range of motion, supple. LUNGS: Breath sounds equal, clear to auscultation bilaterally, no wheezes, no crackles, no accessory muscle use. HEART: Regular rate and rhythm, S1, S2 without murmur, rub or gallop. ABDOMEN: Soft, nontender, nondistended, normoactive bowel sounds, no guarding, no rebound, no hepatosplenomegaly, no masses. EXTREMITIES: 2+ pulses, warm, well-perfused, no edema. NEUROLOGICAL: intubated and sedated. PSYCH: intubated and sedation. SKIN: Warm, dry, normal turgor, no rashes or lesions noted. Laboratory Results - last 24 hr 07/13/18 07/13/18 07/13/18 07:56 18:43 20:30 Anticoagulation Therapy Puncture Site ABG pH ABG pCO2 at Pt Temp ABG pO2 at Pt Temp ABG HCO3 ABG O2 Sat (Measured) ABG O2 Content ABG Base Excess Orlin Test O2 Delivery Device Oxygen Flow Rate Vent Mode Vent Rate Mechanical Rate PEEP Pressure Support Vent Sodium 135 L 137 Potassium 3.1 L 3.8 Chloride 89 L 89 L Carbon Dioxide 41 H 40 H Anion Gap 6 L 8 BUN 15 19 H Creatinine 0.7 1.1 Creat Clearance w eGFR 120.88 71.75 Random Glucose 94 156 H Calcium 9.0 8.7 Phosphorus 0.4 L* 3.3 Magnesium 1.5 L 2.3 Total Bilirubin 2.2 H AST 16 ALT 29 Alkaline Phosphatase 98 Creatine Kinase 36 Troponin I < 0.02 B-Natriuretic Peptide 124.7 Total Protein 6.0 L Albumin 3.1 L Influenza A (Rapid) Negative Influenza B (Rapid) Negative 07/14/18 06:30 Anticoagulation Therapy No Result Required. Puncture Site Right radial ABG pH 7.57 H ABG pCO2 at Pt Temp 40.8 ABG pO2 at Pt Temp 81.8 ABG HCO3 37.6 H ABG O2 Sat (Measured) 97.2 ABG O2 Content 16.6 ABG Base Excess 13.8 H Orlin Test Positive O2 Delivery Device Vent Oxygen Flow Rate 35% Vent Mode No Result Required. Vent Rate No Result Required. Mechanical Rate No Result Required. PEEP 5.0 Pressure Support Vent 400 Sodium Potassium Chloride Carbon Dioxide Anion Gap BUN Creatinine Creat Clearance w eGFR Random Glucose Calcium Phosphorus Magnesium Total Bilirubin AST ALT Alkaline Phosphatase Creatine Kinase Troponin I B-Natriuretic Peptide Total Protein Albumin Influenza A (Rapid) Influenza B (Rapid) Active Medications Generic Name Dose Route Start Last Admin Trade Name Freq PRN Reason Stop Dose Admin Acetaminophen 1,000 mg 07/13/18 22:00 07/14/18 04:05 Ofirmev Injection - IVPB 1,000 mg Q6H PRN Administration FEVER Chlorhexidine Gluconate 1 applic 07/13/18 22:00 07/13/18 21:48 Hibiclens For Decolonization - TP 1 applic HS PALLAVI Administration Propofol 1,000,000 mcg in 100 mls @ 9.117 mls/hr 07/12/18 23:00 07/14/18 04: 07 Diprivan - IVPB 45 mcg/kg/min TITR PALLAVI 41.027 mls/hr Administration Protocol 10 MCG/KG/MIN Midazolam HCl 100 mg/ Sodium 100 mls @ 1 mls/hr 07/12/18 23:00 07/13/18 23:14 Chloride IVPB Not Given TITR PALLAVI Protocol 1 MG/HR Vancomycin HCl 1,500 mg/ 500 mls @ 250 mls/hr 07/13/18 17:00 07/14/18 04:07 Dextrose IVPB 250 mls/hr Q12H PALLAVI Administration Protocol Methimazole 10 mg 07/13/18 14:45 07/13/18 16:40 Tapazole - PO 10 mg DAILY PALLAVI Administration Methylprednisolone Sodium Succinate 60 mg 07/12/18 20:45 07/14/18 01:31 Solu-Medrol - IVPB 60 mg Q8H-IV PALLAVI Administration Mupirocin 1 applic 07/13/18 10:00 07/13/18 21:49 Bactroban Ointment (For Decolonization) - NS 07/18/18 09:59 1 applic BID PALLAVI Administration Pantoprazole Sodium 40 mg 07/14/18 10:00 Protonix Iv IVPUSH DAILY PALLAVI Potassium Chloride 40 meq 07/13/18 11:00 07/13/18 21:48 Potassium Chloride Oral Liquid PO 40 meq BID PALLAVI Administration Rivaroxaban 20 mg 07/13/18 11:00 07/13/18 16:45 Xarelto - PO Not Given DAILY PALLAVI Pt is a morbidly obese 47 yo M with signif PMHx of Hyperthyroidism, HLD, HTN, chronic back pain, Severe BONY, DVT, COPD (3L), DHF, anemia, UGI bleed, brought in from [facility] for K-6.8, K found to 5.4 in Ed, received lasix 60mg for congestive changes per CXR, found to be inrigors/seizing yesterday, received 2mg ativan, noted to be tachy this am off sedation, received 10mg lopressor NEURO Sedated and intubated Propofol drip DC this AM to attempt extubation Midazolam drip DC this AM to attempt extubation Plan to transition from vent to BIPAP Sleep study records from 04/23/14 - RESPIRATORY Intubated/sedated - RR reduced Plan for transition from vent to BIPAP today Pt alkalotic to 7.66>>7.57 -Decreasing rate -ABG stat pending Cont methyl pred Stop albuterol- tachycardia stop formetrol-tachycardia CXR today CARDIOVASCULAR #SINUS TACHYCARDIA -Received lopressor yesterday -No tachycardia today #HX OF DVT -Home Xarelto 20 mg PO daily via NGT ENDOCRINE #HX OF HYPERTHYROIDISM -Home Methimazole 10 mg PO daily -TSH 0.39 -T4 0.72 -Pending T3 ID Vancomycin per ID --Can DC if sputum culture negative for MRSA per ID --Follow sputum culture Zosyn per ID RENAL Kphosh-45mmol Kcl 40meq NGT FEN Hold lasix Monitor lytes, replete as needed NPO PPx Protonix 40mg iv daily Dispo ICU level care Visit type - Emergency Visit Emergency Visit: Yes ED Registration Date: 07/12/18 Care time: The patient presented to the Emergency Department on the above date and was hospitalized for further evaluation of their emergent condition. - New Patient This patient is new to me today: Yes Date on this admission: 07/14/18 - Critical Care Critical Care patient: Yes Total Critical Care Time (in minutes): 35 Critical Care Statement: The care of this patient involved high complexity decision making to prevent further life threatening deterioration of the patient 's condition and/or to evaluate & treat vital organ system(s) failure or risk of failure. - Discharge Referral Referred to [facility] Med P.C.: No
[2018-07-14 08:32] LABS: BASO % 0.3 % (0-2.0); HEMATOCRIT 39.3 % (35.4-49); HEMOGLOBIN 12.4 GM/dL (11.7-16.9); LYMPH % 2.8 % (8-40); MCH 27.7 pg (25.7-33.7); MCHC 31.6 g/dl (32.0-35.9); MEAN CELL VOLUME 87.7 fl (80-96); MEAN PLT VOLUME 8.4 fl (7.5-11.1); MONO % 6.9 % (3.8-10.2); PLATELET COUNT 121 K/MM3 (134-434); RBC 4.48 M/mm3 (4.00-5.60); RDW 15.5 % (11.9-15.9); WHITE BLOOD COUNT 9.6 K/mm3 (4.0-10.0)
[2018-07-14 09:01] LABS: ALK PHOS 93 U/L (45-117); ANION GAP 6 MMOL/L (8-16); BLOOD UREA NITROGEN 21 mg/dL (7-18); CALCIUM 8.5 mg/dL (8.5-10.1); CHLORIDE 91 mmol/L (98-107); CO2 38 mmol/L (21-32); CREATININE 1.1 mg/dL (0.55-1.3); GLUCOSE,RANDOM 168 mg/dL (74-106); PHOSPHOROUS 3.8 mg/dL (2.5-4.9); POTASSIUM 3.5 mmol/L (3.5-5.1); SGOT/AST 15 U/L (15-37); SGPT/ALT 28 U/L (13-61); SODIUM 134 mmol/L (136-145); TOT PROT 5.7 g/dl (6.4-8.2)
[2018-07-14] MEDS ORDERED: PT OWN MED DRAWER 7, Y5N ONE ×2 (09:52→23:59)
[2018-07-14] MEDS ORDERED: PIPERACILLIN/TAZOBACTAM 4.5 GM VIAL IVPB ONE ×3 (09:53→23:59)
[2018-07-14] MEDS ORDERED: DEXTROSE 5%-WATER 100 ML IVPB ONE ×3 (09:53→23:59)
[2018-07-14] MEDS: RIVAROXABAN 20 MG TABLET PO SCH (09:58)
[2018-07-14] MEDS: PIPERACILLIN/TAZOB 4.5 GM 4.5 GM in DEXTROSE 5%-WATER 100 ML IVPB SCH ×2 (09:58→19:28)
[2018-07-14] MEDS: METHIMAZOLE 10 MG TABLET (FP) PO SCH (09:59)
[2018-07-14] MEDS: POTASSIUM CHLORIDE ORAL LIQUID 20 MEQ/15 ML PO SCH ×2 (10:02→21:06)
[2018-07-14] MEDS: PANTOPRAZOLE SODIUM 40 MG VIAL IVPUSH SCH (10:02)
--- NOTE | 2018-07-14 10:25 | PN ---
Progress Note, Physician Chief Complaint: AWAKE ALERT INTUBATED STILL ON WEANING PROTOCOL EVENTS AND NOTES REVIEWED - Current Medication List Current Medications: Active Medications Acetaminophen (Ofirmev Injection -) 1,000 mg IVPB Q6H PRN PRN Reason: FEVER Last Admin: 07/14/18 04:05 Dose: 1,000 mg Chlorhexidine Gluconate (Hibiclens For Decolonization -) 1 applic TP HS PALLAVI Last Admin: 07/13/18 21:48 Dose: 1 applic Propofol (Diprivan -) 1,000,000 mcg in 100 mls @ 9.117 mls/hr IVPB TITR PALLAVI; Protocol Last Titration: 07/14/18 09:40 Dose: 0 mcg/kg/min, 0 mls/hr Midazolam HCl 100 mg/ Sodium (Chloride) 100 mls @ 1 mls/hr IVPB TITR PALLAVI; Protocol Last Admin: 07/13/18 23:14 Dose: Not Given Vancomycin HCl 1,500 mg/ (Dextrose) 500 mls @ 250 mls/hr IVPB Q12H PALLAVI; Protocol Last Admin: 07/14/18 04:07 Dose: 250 mls/hr Piperacillin Sod/Tazobactam (Sod 4.5 gm/ Dextrose) 100 mls @ 200 mls/hr IVPB Q8H-IV PALLAVI; Protocol Stop: 07/15/18 02:29 Last Admin: 07/14/18 09:58 Dose: 200 mls/hr Piperacillin Sod/Tazobactam (Sod 4.5 gm/ Dextrose) 100 mls @ 200 mls/hr IVPB Q8H-IV PALLAVI Methimazole (Tapazole -) 10 mg PO DAILY PALLAVI Last Admin: 07/14/18 09:59 Dose: 10 mg Methylprednisolone Sodium Succinate (Solu-Medrol -) 60 mg IVPB Q8H-IV PALLAVI Last Admin: 07/14/18 09:59 Dose: 60 mg Mupirocin (Bactroban Ointment (For Decolonization) -) 1 applic NS BID PALLAVI Stop: 07/18/18 09:59 Last Admin: 07/13/18 21:49 Dose: 1 applic Pantoprazole Sodium (Protonix Iv) 40 mg IVPUSH DAILY PALLAVI Last Admin: 07/14/18 10:02 Dose: 40 mg Potassium Chloride (Potassium Chloride Oral Liquid) 40 meq PO BID PALLAVI Last Admin: 07/14/18 10:02 Dose: 40 meq Rivaroxaban (Xarelto -) 20 mg PO DAILY [facility] Last Admin: 07/14/18 09:58 Dose: 20 mg - Objective Vital Signs: Vital Signs Temperature 98.7 F 07/14/18 08:00 Pulse Rate 117 H 07/14/18 10:00 Respiratory Rate 14 07/14/18 10:00 Blood Pressure 136/85 07/14/18 10:00 O2 Sat by Pulse Oximetry (%) 97 07/14/18 09:28 Constitutional: Yes: Mild Distress Eyes: Yes: WNL HENT: Yes: WNL Neck: Yes: WNL Cardiovascular: Yes: Regular Rate and Rhythm Respiratory: Yes: Diminished, Mechanically Ventilated Gastrointestinal: Yes: Abdomen, Obese Genitourinary: Yes: Aguilera Present Musculoskeletal: Yes: Muscle Weakness Edema: Yes Edema: LLE: 1+, RLE: 1+ Peripheral Pulses WNL: Yes Integumentary: Yes: Other Wound/Incision: Yes: Clean/Dry Neurological: Yes: Other Psychiatric: Yes: Other Labs: CBC, BMP 07/14/18 07:55 07/14/18 07:55 INR, PTT INR 1.46 (0.83-1.09) H 07/13/18 07:00 Problem List - Problems (1) Acute on chronic respiratory failure with hypoxia and hypercapnia Code(s): J96.21 - ACUTE AND CHRONIC RESPIRATORY FAILURE WITH HYPOXIA; J96.22 - ACUTE AND CHRONIC RESPIRATORY FAILURE WITH HYPERCAPNIA (2) Acute respiratory failure Code(s): J96.00 - ACUTE RESPIRATORY FAILURE, UNSP W HYPOXIA OR HYPERCAPNIA (3) Fever Code(s): R50.9 - FEVER, UNSPECIFIED (4) Seizure Code(s): R56.9 - UNSPECIFIED CONVULSIONS (5) Tachycardia Code(s): R00.0 - TACHYCARDIA, UNSPECIFIED (6) Acute and chronic respiratory failure ([id number]) Code(s): J96.20 - ACUTE AND CHR RESP FAILURE, UNSP W HYPOXIA OR HYPERCAPNIA (7) Acute exacerbation of chronic obstructive pulmonary disease (COPD) Code(s): J44.1 - CHRONIC OBSTRUCTIVE PULMONARY DISEASE W (ACUTE) EXACERBATION (8) Depression Code(s): F32.9 - MAJOR DEPRESSIVE DISORDER, SINGLE EPISODE, UNSPECIFIED (9) Diarrhea Code(s): R19.7 - DIARRHEA, UNSPECIFIED (10) Dvt femoral (deep venous thrombosis) Code(s): I82.419 - ACUTE EMBOLISM AND THROMBOSIS OF UNSPECIFIED FEMORAL VEIN (11) Dyspnea Code(s): R06.00 - DYSPNEA, UNSPECIFIED Qualifiers: Dyspnea type: shortness of breath Qualified Code(s): R06.02 - Shortness of breath (12) Edema Code(s): R60.9 - EDEMA, UNSPECIFIED (13) Enteritis Code(s): K52.9 - NONINFECTIVE GASTROENTERITIS AND COLITIS, UNSPECIFIED (14) Glaucoma Code(s): H40.9 - UNSPECIFIED GLAUCOMA (15) HTN (hypertension) Code(s): I10 - ESSENTIAL (PRIMARY) HYPERTENSION (16) Hypercapnic respiratory failure Code(s): J96.92 - RESPIRATORY FAILURE, UNSPECIFIED WITH HYPERCAPNIA Qualifiers: Chronicity: acute on chronic Qualified Code(s): J96.22 - Acute and chronic respiratory failure with hypercapnia (17) Hyperkalemia Code(s): E87.5 - HYPERKALEMIA (18) Obstructive apnea Code(s): G47.33 - OBSTRUCTIVE SLEEP APNEA (ADULT) (PEDIATRIC) (19) Pulmonary hypertension Code(s): I27.2 - OTHER SECONDARY PULMONARY HYPERTENSION * DO NOT USE * (20) Sepsis Code(s): A41.9 - SEPSIS, UNSPECIFIED ORGANISM Qualifiers: Sepsis type: sepsis due to unspecified organism Qualified Code(s): A41.9 - Sepsis, unspecified organism Assessment/Plan WEAN OFF VENT TOLERATED CHECKING LABS 2X DAY RENAL EVAL FOR ACUTE RENAL FAILURE HYPERKALEMIA DVT TREATMENT ON XARELTO IV ABX CHECK CULTURES CHECK WITH ID FOR F/U AND POSSIBLE PICC LINE SNF
[2018-07-14 10:31] LABS: ARTERIAL BLD GAS O2 SATURATION 94.6 % (95-98); ARTERIAL BLOOD GAS BASE EXCESS 13.7 meq/l (-2-2); ARTERIAL BLOOD GAS PCO2 46.6 mmHg (35-45); ARTERIAL BLOOD GAS PO2 69.3 mmHg (80-105); ARTERIAL BLOOD GAS pH 7.53 (7.35-7.45)
[2018-07-14 10:54] LABS: ALLENS TEST POSITIVE
[2018-07-14] MEDS: MUPIROCIN 2% TOPICAL OINTMENT FOR DECOLONIZATION NS SCH ×2 (11:00→21:06)
--- NOTE | 2018-07-14 11:48 | EKG ---
Test Reason : Blood Pressure : / mmHG Vent. Rate : 120 BPM Atrial Rate : 120 BPM P-R Int : 152 ms QRS Dur : 080 ms QT Int : 334 ms P-R-T Axes : 050 072 049 degrees QTc Int : 472 ms SINUS TACHYCARDIA NONSPECIFIC ST ABNORMALITY ABNORMAL ECG WHEN COMPARED WITH ECG OF 12-JUL-2018 14:00, NO SIGNIFICANT CHANGE WAS FOUND Confirmed by AUDRA ZIMMERMAN MD ([id number]) on 07/14/2018 11:48:03 AM Referred By: SANDY HAINES DR Confirmed By:AUDRA ZIMMERMAN MD
--- NOTE | 2018-07-14 11:55 | PN ---
Teaching Attending Note Name of Resident: Latisha Carroll ATTENDING PHYSICIAN STATEMENT I saw and evaluated the patient. I reviewed the resident's note and discussed the case with the resident. I agree with the resident's findings and plan as documented. SUBJECTIVE: Patient seen and examined in the ICU. Remains intubated and lightly sedated. AC Mode of vent, 35% FiO2. OBJECTIVE: Intake & Output 07/11/18 07/12/18 07/13/18 07/14/18 23:59 23:59 23:59 23:59 Intake Total 1687 100 Output Total 3200 800 Balance -1513 -700 Weight 335 lb 352 lb 6 oz 355 lb 6.4 oz Last Vital Signs Temp Pulse Resp BP Pulse Ox 98.7 F 117 H 20 136/85 97 07/14/18 08:00 07/14/18 10:00 07/14/18 10:32 07/14/18 10:00 07/14/18 09:28 Gen: intubated, lightly sedated Heart: RRR Lung: distant breath sounds, no active wheezing Abd: soft, nontender, obese Ext: no edema Laboratory Results - last 24 hr 07/13/18 07/13/18 07/14/18 18:43 20:30 06:30 WBC RBC Hgb Hct MCV MCH MCHC RDW Plt Count MPV Absolute Neuts (auto) Neutrophils % Lymphocytes % Monocytes % Eosinophils % Basophils % Nucleated RBC % Anticoagulation Therapy No Result Required. Puncture Site Right radial ABG pH 7.57 H ABG pCO2 at Pt Temp 40.8 ABG pO2 at Pt Temp 81.8 ABG HCO3 37.6 H ABG O2 Sat (Measured) 97.2 ABG O2 Content 16.6 ABG Base Excess 13.8 H Orlin Test Positive O2 Delivery Device Vent Oxygen Flow Rate 35% Vent Mode No Result Required. Vent Rate No Result Required. Mechanical Rate No Result Required. PEEP 5.0 Pressure Support Vent 400 Sodium 137 Potassium 3.8 Chloride 89 L Carbon Dioxide 40 H Anion Gap 8 BUN 19 H Creatinine 1.1 Creat Clearance w eGFR 71.75 Random Glucose 156 H Calcium 8.7 Phosphorus 3.3 Magnesium 2.3 Total Bilirubin AST ALT Alkaline Phosphatase Total Protein Albumin Free T4 Influenza A (Rapid) Negative Influenza B (Rapid) Negative 07/14/18 07/14/18 07/14/18 07:55 07:55 10:20 WBC 9.6 RBC 4.48 Hgb 12.4 Hct 39.3 MCV 87.7 MCH 27.7 MCHC 31.6 L RDW 15.5 Plt Count 121 L D MPV 8.4 Absolute Neuts (auto) 8.6 H Neutrophils % 90.0 H Lymphocytes % 2.8 L Monocytes % 6.9 Eosinophils % 0.0 D Basophils % 0.3 Nucleated RBC % 0 Anticoagulation Therapy Puncture Site Right radial ABG pH 7.53 H ABG pCO2 at Pt Temp 46.6 H ABG pO2 at Pt Temp 69.3 L ABG HCO3 38.4 H ABG O2 Sat (Measured) 94.6 L ABG O2 Content 16.8 ABG Base Excess 13.7 H Orlin Test Positive O2 Delivery Device Mech vent Oxygen Flow Rate 50% Vent Mode Cpap Vent Rate 12 Mechanical Rate Yes PEEP 5.0 Pressure Support Vent 10/5 Sodium 134 L Potassium 3.5 Chloride 91 L Carbon Dioxide 38 H Anion Gap 6 L BUN 21 H Creatinine 1.1 Creat Clearance w eGFR 71.75 Random Glucose 168 H Calcium 8.5 Phosphorus 3.8 Magnesium 2.0 Total Bilirubin 1.0 AST 15 ALT 28 Alkaline Phosphatase 93 Total Protein 5.7 L Albumin 3.0 L Free T4 0.72 L Influenza A (Rapid) Influenza B (Rapid) ASSESSMENT AND PLAN: Acute on Chronic Hypoxic and Hypercapneic Respiratory Failure Acute COPD Exacerbation LV Diastolic Dysfunction r/o Pneumonia Morbid Obesity Severe BONY/OHS (RDI 156 events per hour: titrated to BIPAP: 22/18) HTN h/o DVT - Medrol - inhaled bronchodilators - O2 to keep Spo2 >90% - Noted empiric antibiotics - f/u cultures - Daily lasix - monitor urine output, creatinine - replete lytes - spontaneous breathing trials: Once extubated: NIPPV support: / backup rate 14 - continue anticoagulation - Requires continued ICU monitoring Dr Arellano Critical care time spent in reviewing chart, evaluating patient and formulating plan 36 min
[2018-07-14] MEDS ORDERED: FUROSEMIDE 20 MG TABLET (FP) PO SCH (12:00)
[2018-07-14] MEDS ORDERED: FUROSEMIDE 40 MG/4 ML INJECTABLE VIAL ONE (12:47)
[2018-07-14] MEDS: FUROSEMIDE 40 MG/4 ML INJECTABLE VIAL IVPUSH SCH (13:12)
--- NOTE | 2018-07-14 16:59 | PN ---
Progress Note (short form) - Note Progress Note: extubated alert Vital Signs Period Temp Pulse Resp BP Sys/Woodall Pulse Ox Last 24 Hr 98.7 F-100.3 F 100-117 14-26 103-139/70-97 97-100 cor-rrr lungs decreased bs at bases abd soft,nt ext no edema CBC, BMP 07/14/18 07:55 07/14/18 07:55 Microbiology 07/13/18 16:30 Sputum - Endotrachea Suction/Ventilator Gram Stain - Final 07/13/18 07:15 Blood - Peripheral Venous Blood Culture - Preliminary NO GROWTH OBTAINED AFTER 24 HOURS, INCUBATION TO CONTINUE FOR 4 DAYS. 07/13/18 07:00 Blood - Peripheral Venous Blood Culture - Preliminary NO GROWTH OBTAINED AFTER 24 HOURS, INCUBATION TO CONTINUE FOR 4 DAYS. 07/12/18 12:15 Urine For Antigen Detection Legionella Antigen - Final 07/12/18 12:15 Urine For Antigen Detection Streptococcus pneumoniae Antigen (M - Final nfluenza negative a/p hypercapneic respiratory failure-extubated today low grade fever fever cannot r/o pneumonia ?aspiration, healthcare associated morbid obesity-overall difficult physical exam and imaging due to patient's size check vanco level continue vanco/zosyn Problem List - Problems (1) Acute on chronic respiratory failure with hypoxia and hypercapnia Code(s): J96.21 - ACUTE AND CHRONIC RESPIRATORY FAILURE WITH HYPOXIA; J96.22 - ACUTE AND CHRONIC RESPIRATORY FAILURE WITH HYPERCAPNIA (2) Fever Code(s): R50.9 - FEVER, UNSPECIFIED (3) Pneumonia Code(s): J18.9 - PNEUMONIA, UNSPECIFIED ORGANISM (4) Morbid obesity with BMI of 50.0-59.9, adult Code(s): Z68.43 - BODY MASS INDEX (BMI) 50-59.9, ADULT
[2018-07-14] MEDS ORDERED: VANCOMYCIN 1,000 MG in DEXTROSE 5%-WATER - 250 ML IVPB SCH (19:15)
[2018-07-14] MEDS ORDERED: VANCOMYCIN 1 GM in D5W (PRE-DOCKED) 1,000 MG/250 ML IVPB SCH (20:30)
[2018-07-14] MEDS: CHLORHEXIDINE GLUCONATE 4% CLEANSER FOR DECOLONIZATION TP SCH (21:06)
[2018-07-14] MEDS: VANCOMYCIN 1 GM IVPB SCH (21:06)
[2018-07-15] MEDS: MIDAZOLAM 100 MG in SODIUM CHLORIDE 100 ML IVPB SCH (01:45)
[2018-07-15] MEDS: PROPOFOL 1,000,000 MCG/100 ML VIAL IVPB SCH (01:46)
[2018-07-15] MEDS: methylPREDNISolone NA SUCC 40 MG/1 ML VIAL IVPB SCH ×3 (02:18→17:11)
[2018-07-15] MEDS: PIPERACILLIN/TAZOB 4.5 GM 4.5 GM in DEXTROSE 5%-WATER 100 ML IVPB SCH ×5 (02:18→18:29)
[2018-07-15] MEDS: FUROSEMIDE 40 MG/4 ML INJECTABLE VIAL IVPUSH SCH (05:15)
[2018-07-15 06:43] LABS: BASO % 0.1 % (0-2.0); HEMATOCRIT 40.1 % (35.4-49); HEMOGLOBIN 12.6 GM/dL (11.7-16.9); LYMPH % 2.6 % (8-40); MCH 28.1 pg (25.7-33.7); MCHC 31.5 g/dl (32.0-35.9); MEAN CELL VOLUME 89.2 fl (80-96); MEAN PLT VOLUME 8.3 fl (7.5-11.1); NEUT % 90.3 % (42.8-82.8); PLATELET COUNT 134 K/MM3 (134-434); RDW 15.5 % (11.9-15.9); WHITE BLOOD COUNT 7.6 K/mm3 (4.0-10.0)
[2018-07-15 07:04] LABS: ALBUMIN 3.2 g/dl (3.4-5.0); ALK PHOS 91 U/L (45-117); ANION GAP 8 MMOL/L (8-16); BILIRUBIN,TOTAL 1.3 mg/dL (0.2-1); BLOOD UREA NITROGEN 25 mg/dL (7-18); CALCIUM 8.2 mg/dL (8.5-10.1); CHLORIDE 89 mmol/L (98-107); CO2 39 mmol/L (21-32); CREATININE 1.1 mg/dL (0.55-1.3); GLUCOSE,RANDOM 144 mg/dL (74-106); PHOSPHOROUS 5.3 mg/dL (2.5-4.9); POTASSIUM 3.9 mmol/L (3.5-5.1); SGOT/AST 12 U/L (15-37); SGPT/ALT 30 U/L (13-61); SODIUM 136 mmol/L (136-145); TOT PROT 6.2 g/dl (6.4-8.2)
--- NOTE | 2018-07-15 07:23 | PN ---
Physical Exam: SUBJECTIVE: Patient seen and examined at bedside. Reported he is feeling better , slept well overnight on CPAP, denied shortness of breath or chest pain. OBJECTIVE: Vital Signs Period Temp Pulse Resp BP Sys/Woodall Pulse Ox Last 24 Hr 97.7 F-99.7 F 21-117 14- 106-139/78-97 96-100 GENERAL: The patient is awake, alert, and fully oriented, in no acute distress. morbidly obese. HEAD: Normal with no signs of trauma. EYES: PERRL, extraocular movements intact, sclera anicteric, conjunctiva clear. No ptosis. ENT: Ears normal, nares patent, oropharynx clear without exudates, moist mucous membranes. NECK: Trachea midline, full range of motion, supple. LUNGS: Breath sounds equal, clear to auscultation bilaterally, no wheezes, no crackles, no accessory muscle use. HEART: Regular rate and rhythm, S1, S2 without murmur, rub or gallop. ABDOMEN: Soft, nontender, nondistended, normoactive bowel sounds, no guarding, no rebound, no hepatosplenomegaly, no masses. EXTREMITIES: 2+ pulses, warm, well-perfused, no edema. NEUROLOGICAL: Cranial nerves II through XII grossly intact. Normal speech, gait not observed. PSYCH: Normal mood, normal affect. SKIN: Warm, dry, normal turgor, no rashes or lesions noted Laboratory Results - last 24 hr 07/14/18 07/14/18 07/14/18 07:55 07:55 07:55 WBC 9.6 RBC 4.48 Hgb 12.4 Hct 39.3 MCV 87.7 MCH 27.7 MCHC 31.6 L RDW 15.5 Plt Count 121 L D MPV 8.4 Absolute Neuts (auto) 8.6 H Neutrophils % 90.0 H Lymphocytes % 2.8 L Monocytes % 6.9 Eosinophils % 0.0 D Basophils % 0.3 Nucleated RBC % 0 Puncture Site ABG pH ABG pCO2 at Pt Temp ABG pO2 at Pt Temp ABG HCO3 ABG O2 Sat (Measured) ABG O2 Content ABG Base Excess Orlin Test O2 Delivery Device Oxygen Flow Rate Vent Mode Vent Rate Mechanical Rate PEEP Pressure Support Vent Sodium 134 L Potassium 3.5 Chloride 91 L Carbon Dioxide 38 H Anion Gap 6 L BUN 21 H Creatinine 1.1 Creat Clearance w eGFR 71.75 Random Glucose 168 H Calcium 8.5 Phosphorus 3.8 Magnesium 2.0 Total Bilirubin 1.0 AST 15 ALT 28 Alkaline Phosphatase 93 Total Protein 5.7 L Albumin 3.0 L TSH 0.27 L D Free T4 0.72 L Free T3 1.9 L Vancomycin Pre-Dose 07/14/18 07/14/18 07/15/18 10:20 17:00 05:30 WBC 7.6 RBC 4.50 Hgb 12.6 Hct 40.1 MCV 89.2 MCH 28.1 MCHC 31.5 L RDW 15.5 Plt Count 134 MPV 8.3 Absolute Neuts (auto) 6.9 Neutrophils % 90.3 H Lymphocytes % 2.6 L Monocytes % 7.0 Eosinophils % 0.0 Basophils % 0.1 Nucleated RBC % 0 Puncture Site Right radial ABG pH 7.53 H ABG pCO2 at Pt Temp 46.6 H ABG pO2 at Pt Temp 69.3 L ABG HCO3 38.4 H ABG O2 Sat (Measured) 94.6 L ABG O2 Content 16.8 ABG Base Excess 13.7 H Orlin Test Positive O2 Delivery Device Mech vent Oxygen Flow Rate 50% Vent Mode Cpap Vent Rate 12 Mechanical Rate Yes PEEP 5.0 Pressure Support Vent 10/5 Sodium Potassium Chloride Carbon Dioxide Anion Gap BUN Creatinine Creat Clearance w eGFR Random Glucose Calcium Phosphorus Magnesium Total Bilirubin AST ALT Alkaline Phosphatase Total Protein Albumin TSH Free T4 Free T3 Vancomycin Pre-Dose 18.1 07/15/18 05:30 WBC RBC Hgb Hct MCV MCH MCHC RDW Plt Count MPV Absolute Neuts (auto) Neutrophils % Lymphocytes % Monocytes % Eosinophils % Basophils % Nucleated RBC % Puncture Site ABG pH ABG pCO2 at Pt Temp ABG pO2 at Pt Temp ABG HCO3 ABG O2 Sat (Measured) ABG O2 Content ABG Base Excess Orlin Test O2 Delivery Device Oxygen Flow Rate Vent Mode Vent Rate Mechanical Rate PEEP Pressure Support Vent Sodium 136 Potassium 3.9 Chloride 89 L Carbon Dioxide 39 H Anion Gap 8 BUN 25 H Creatinine 1.1 Creat Clearance w eGFR 71.75 Random Glucose 144 H Calcium 8.2 L Phosphorus 5.3 H Magnesium Total Bilirubin 1.3 H AST 12 L ALT 30 Alkaline Phosphatase 91 Total Protein 6.2 L Albumin 3.2 L TSH Free T4 Free T3 Vancomycin Pre-Dose Active Medications Generic Name Dose Route Start Last Admin Trade Name Freq PRN Reason Stop Dose Admin Acetaminophen 1,000 mg 07/13/18 22:00 07/14/18 04:05 Ofirmev Injection - IVPB 1,000 mg Q6H PRN Administration FEVER Chlorhexidine Gluconate 1 applic 07/13/18 22:00 07/14/18 21:06 Hibiclens For Decolonization - TP 1 applic HS PALLAVI Administration Furosemide 60 mg 07/14/18 14:00 07/15/18 05:15 Lasix Injection - IVPUSH 60 mg BIDLASIX PALLAVI Administration Piperacillin Sod/Tazobactam 100 mls @ 200 mls/hr 07/15/18 10:00 Sod 4.5 gm/ Dextrose IVPB Q8H-IV PALLAVI Vancomycin HCl 1,000 mg/ 250 mls @ 166.667 mls/hr 07/14/18 19:15 Dextrose IVPB Q12H PALLAVI Protocol Methimazole 10 mg 07/13/18 14:45 07/14/18 09:59 Tapazole - PO 10 mg DAILY PALLAVI Administration Methylprednisolone Sodium Succinate 60 mg 07/12/18 20:45 07/15/18 02:18 Solu-Medrol - IVPB 60 mg Q8H-IV PALLAVI Administration Mupirocin 1 applic 07/13/18 10:00 07/14/18 21:06 Bactroban Ointment (For Decolonization) - NS 07/18/18 09:59 1 applic BID PALLAVI Administration Pantoprazole Sodium 40 mg 07/14/18 10:00 07/14/18 10:02 Protonix Iv IVPUSH 40 mg DAILY PALLAVI Administration Potassium Chloride 40 meq 07/13/18 11:00 07/14/18 21:06 Potassium Chloride Oral Liquid PO Not Given BID PALLAVI Rivaroxaban 20 mg 07/13/18 11:00 07/14/18 09:58 Xarelto - PO 20 mg DAILY PALLAVI Administration Vancomycin HCl 1,000 gm 07/14/18 20:30 07/14/18 21:06 Vancomycin 1 Gm Premix - IVPB 07/15/18 08:31 1,000 gm Q12H PALLAVI Administration ASSESSMENT AND PLAN Pt is a morbidly obese 47 yo M with significant PMHx of Hyperthyroidism, HLD, HTN, chronic back pain, Severe BONY, DVT, COPD (3L), DHF, anemia, UGI bleed, brought in from [facility] for K-6.8, K found to 5.4 in Ed, found to have COPD exacerbation, pneumonia, metabolic encephalopathy from CO2 retention. NEURO -Alert and oriented RESPIRATORY -CPAP tolerated well overnight -Pt transitioned to nasal cannula -Continue to monitor #COPD Exacerbation -Cont methyl pred -Stop albuterol- tachycardia -stop formetrol-tachycardia CARDIOVASCULAR -Morning Lasix 60 mg IV given -Changed to Lasix 60 mg PO BID #SINUS TACHYCARDIA -Improved #HX OF DVT -Home Xarelto 20 mg PO daily ENDOCRINE #HX OF HYPERTHYROIDISM -Home Methimazole 10 mg PO daily -TSH 0.39 -Free T4 0.72 -Free T3 1.9 ID Pneumonia Vancomycin Q12H per ID Zosyn per ID FEN Monitor lytes, replete as needed Low sodium diet ELIZABETH wilhelm 07/15/18 Out of bed Physical therapy PPx Protonix 40mg IV daily Dispo Tele Visit type - Emergency Visit Emergency Visit: Yes ED Registration Date: 07/12/18 Care time: The patient presented to the Emergency Department on the above date and was hospitalized for further evaluation of their emergent condition. - New Patient This patient is new to me today: No - Critical Care Critical Care patient: Yes Total Critical Care Time (in minutes): 35 Critical Care Statement: The care of this patient involved high complexity decision making to prevent further life threatening deterioration of the patient 's condition and/or to evaluate & treat vital organ system(s) failure or risk of failure. - Discharge Referral Referred to [facility] Med P.C.: No
[2018-07-15 07:49] LABS: MAGNESIUM 1.9 mg/dL (1.8-2.4)
--- NOTE | 2018-07-15 09:04 | PN ---
Progress Note (short form) - Note Progress Note: extubated alert less cough nasal canulla Vital Signs Period Temp Pulse Resp BP Sys/Woodall Pulse Ox Last 24 Hr 97.7 F-99.7 F 21-117 14-28 123-139/80-97 96-100 cor-rrr lungs decreased bs at bases abd soft,nt ext no edema CBC, BMP 07/15/18 05:30 07/15/18 05:30 Microbiology 07/13/18 07:15 Blood - Peripheral Venous Blood Culture - Preliminary NO GROWTH OBTAINED AFTER 48 HOURS, INCUBATION TO CONTINUE FOR 3 DAYS. 07/13/18 07:00 Blood - Peripheral Venous Blood Culture - Preliminary NO GROWTH OBTAINED AFTER 48 HOURS, INCUBATION TO CONTINUE FOR 3 DAYS. 07/13/18 16:30 Sputum - Endotrachea Suction/Ventilator Gram Stain - Final 07/12/18 12:15 Urine For Antigen Detection Legionella Antigen - Final 07/12/18 12:15 Urine For Antigen Detection Streptococcus pneumoniae Antigen (M - Final vanco trough-18 influenza negative cxray unchanged Current Medications Acetaminophen (Ofirmev Injection -) 1,000 mg IVPB Q6H PRN PRN Reason: FEVER Last Admin: 07/14/18 04:05 Dose: 1,000 mg Chlorhexidine Gluconate (Hibiclens For Decolonization -) 1 applic TP HS [facility] Last Admin: 07/14/18 21:06 Dose: 1 applic Furosemide (Lasix Injection -) 60 mg IVPUSH BIDLASIX [facility] Last Admin: 07/15/18 05:15 Dose: 60 mg Piperacillin Sod/Tazobactam (Sod 4.5 gm/ Dextrose) 100 mls @ 200 mls/hr IVPB Q8H-IV [facility] Vancomycin HCl 1,000 mg/ (Dextrose) 250 mls @ 166.667 mls/hr IVPB Q12H [facility]; Protocol Methimazole (Tapazole -) 10 mg PO DAILY [facility] Last Admin: 07/14/18 09:59 Dose: 10 mg Methylprednisolone Sodium Succinate (Solu-Medrol -) 60 mg IVPB Q8H-IV [facility] Last Admin: 07/15/18 02:18 Dose: 60 mg Mupirocin (Bactroban Ointment (For Decolonization) -) 1 applic NS BID [facility] Stop: 07/18/18 09:59 Last Admin: 07/14/18 21:06 Dose: 1 applic Pantoprazole Sodium (Protonix Iv) 40 mg IVPUSH DAILY [facility] Last Admin: 07/14/18 10:02 Dose: 40 mg Potassium Chloride (Potassium Chloride Oral Liquid) 40 meq PO BID [facility] Last Admin: 07/14/18 21:06 Dose: Not Given Rivaroxaban (Xarelto -) 20 mg PO DAILY [facility] Last Admin: 07/14/18 09:58 Dose: 20 mg a/p hypercapneic respiratory failure-extubated cannot r/o pneumonia ?aspiration, healthcare associated morbid obesity-overall difficult physical exam and imaging due to patient's size continue vanco/zosyn switch to vanco 1250 q12h, continue zosyn f/u sputum culture- incentive spirometry Problem List - Problems (1) Acute on chronic respiratory failure with hypoxia and hypercapnia Code(s): J96.21 - ACUTE AND CHRONIC RESPIRATORY FAILURE WITH HYPOXIA; J96.22 - ACUTE AND CHRONIC RESPIRATORY FAILURE WITH HYPERCAPNIA (2) Fever Code(s): R50.9 - FEVER, UNSPECIFIED (3) Pneumonia Code(s): J18.9 - PNEUMONIA, UNSPECIFIED ORGANISM (4) Morbid obesity with BMI of 50.0-59.9, adult Code(s): Z68.43 - BODY MASS INDEX (BMI) 50-59.9, ADULT
[2018-07-15] MEDS ORDERED: PT OWN MED DRAWER 7, Y5N ONE ×2 (09:25→10:49)
[2018-07-15] MEDS ORDERED: INSULIN (NOVOLOG) ASPART 100 UNITS/ML 10ML VIAL ONE (09:26)
[2018-07-15] MEDS: POTASSIUM CHLORIDE ORAL LIQUID 20 MEQ/15 ML PO SCH ×2 (09:33→22:00)
[2018-07-15] MEDS: PANTOPRAZOLE SODIUM 40 MG VIAL IVPUSH SCH (09:33)
[2018-07-15] MEDS: METHIMAZOLE 10 MG TABLET (FP) PO SCH (09:34)
[2018-07-15] MEDS: RIVAROXABAN 20 MG TABLET PO SCH (09:34)
[2018-07-15] MEDS ORDERED: VANCOMYCIN HCL 1,250 MG in DEXTROSE 5%-WATER - 250 ML IVPB SCH (10:00)
[2018-07-15] MEDS ORDERED: PIPERACILLIN/TAZOBACTAM 4.5 GM VIAL IVPB ONE ×3 (10:04→18:11)
[2018-07-15] MEDS ORDERED: DEXTROSE 5%-WATER 100 ML IVPB ONE ×3 (10:05→18:12)
[2018-07-15] MEDS: MUPIROCIN 2% TOPICAL OINTMENT FOR DECOLONIZATION NS SCH (10:07)
--- NOTE | 2018-07-15 10:41 | PN ---
Teaching Attending Note Name of Resident: Latisha Carroll ATTENDING PHYSICIAN STATEMENT I saw and evaluated the patient. I reviewed the resident's note and discussed the case with the resident. I agree with the resident's findings and plan as documented. SUBJECTIVE: Patient seen and examined in the ICU. Remains extubated. NIPPV overnight. Now on NC O2. OBJECTIVE: Intake & Output 07/12/18 07/13/18 07/14/18 07/15/18 23:59 23:59 23:59 23:59 Intake Total 1687 410 360 Output Total 3200 2100 1000 Balance -1513 -1690 -640 Weight 335 lb 352 lb 6 oz 355 lb 348 lb 8 oz Last Vital Signs Temp Pulse Resp BP Pulse Ox 99.8 F H 106 H 29 H 102/70 94 L 07/15/18 10:07/15/18 10:29 07/15/18 10:29 07/15/18 10:07/15/18 09:51 Active Medications Acetaminophen (Ofirmev Injection -) 1,000 mg IVPB Q6H PRN PRN Reason: FEVER Last Admin: 07/14/18 04:05 Dose: 1,000 mg Chlorhexidine Gluconate (Hibiclens For Decolonization -) 1 applic TP HS [facility] Last Admin: 07/14/18 21:06 Dose: 1 applic Furosemide (Lasix -) 60 mg PO BID [facility] Piperacillin Sod/Tazobactam (Sod 4.5 gm/ Dextrose) 100 mls @ 200 mls/hr IVPB Q8H-IV [facility] Last Admin: 07/15/18 10:06 Dose: 200 mls/hr Vancomycin HCl 1,250 mg/ (Dextrose) 250 mls @ 166.667 mls/hr IVPB BID [facility]; Protocol Methimazole (Tapazole -) 10 mg PO DAILY [facility] Last Admin: 07/15/18 09:34 Dose: 10 mg Methylprednisolone Sodium Succinate (Solu-Medrol -) 60 mg IVPB Q8H-IV [facility] Last Admin: 07/15/18 09:33 Dose: 60 mg Mupirocin (Bactroban Ointment (For Decolonization) -) 1 applic NS BID [facility] Stop: 07/18/18 09:59 Last Admin: 07/15/18 10:07 Dose: 1 applic Pantoprazole Sodium (Protonix Iv) 40 mg IVPUSH DAILY [facility] Last Admin: 07/15/18 09:33 Dose: 40 mg Potassium Chloride (Potassium Chloride Oral Liquid) 40 meq PO BID [facility] Last Admin: 07/15/18 09:33 Dose: 40 meq Rivaroxaban (Xarelto -) 20 mg PO DAILY [facility] Last Admin: 07/15/18 09:34 Dose: 20 mg Gen: Extubated, awake and alert Heart: RRR Lung: distant breath sounds, no active wheezing Abd: soft, nontender, obese Ext: no edema Laboratory Results - last 24 hr 07/14/18 07/14/18 07/14/18 07:55 07:55 07:55 WBC 9.6 RBC 4.48 Hgb 12.4 Hct 39.3 MCV 87.7 MCH 27.7 MCHC 31.6 L RDW 15.5 Plt Count 121 L D MPV 8.4 Absolute Neuts (auto) 8.6 H Neutrophils % 90.0 H Lymphocytes % 2.8 L Monocytes % 6.9 Eosinophils % 0.0 D Basophils % 0.3 Nucleated RBC % 0 Puncture Site ABG pH ABG pCO2 at Pt Temp ABG pO2 at Pt Temp ABG HCO3 ABG O2 Sat (Measured) ABG O2 Content ABG Base Excess Orlin Test O2 Delivery Device Oxygen Flow Rate Vent Mode Vent Rate Mechanical Rate PEEP Pressure Support Vent Sodium 134 L Potassium 3.5 Chloride 91 L Carbon Dioxide 38 H Anion Gap 6 L BUN 21 H Creatinine 1.1 Creat Clearance w eGFR 71.75 Random Glucose 168 H Calcium 8.5 Phosphorus 3.8 Magnesium 2.0 Total Bilirubin 1.0 AST 15 ALT 28 Alkaline Phosphatase 93 Total Protein 5.7 L Albumin 3.0 L TSH 0.27 L D Free T4 0.72 L Free T3 1.9 L Vancomycin Pre-Dose 07/14/18 07/14/18 07/15/18 10:20 17:00 05:30 WBC 7.6 RBC 4.50 Hgb 12.6 Hct 40.1 MCV 89.2 MCH 28.1 MCHC 31.5 L RDW 15.5 Plt Count 134 MPV 8.3 Absolute Neuts (auto) 6.9 Neutrophils % 90.3 H Lymphocytes % 2.6 L Monocytes % 7.0 Eosinophils % 0.0 Basophils % 0.1 Nucleated RBC % 0 Puncture Site Right radial ABG pH 7.53 H ABG pCO2 at Pt Temp 46.6 H ABG pO2 at Pt Temp 69.3 L ABG HCO3 38.4 H ABG O2 Sat (Measured) 94.6 L ABG O2 Content 16.8 ABG Base Excess 13.7 H [place] Test Positive O2 Delivery Device Mech vent Oxygen Flow Rate 50% Vent Mode Cpap Vent Rate 12 Mechanical Rate Yes PEEP 5.0 Pressure Support Vent 10/5 Sodium Potassium Chloride Carbon Dioxide Anion Gap BUN Creatinine Creat Clearance w eGFR Random Glucose Calcium Phosphorus Magnesium Total Bilirubin AST ALT Alkaline Phosphatase Total Protein Albumin TSH Free T4 Free T3 Vancomycin Pre-Dose 18.1 07/15/18 05:30 WBC RBC Hgb Hct MCV MCH MCHC RDW Plt Count MPV Absolute Neuts (auto) Neutrophils % Lymphocytes % Monocytes % Eosinophils % Basophils % Nucleated RBC % Puncture Site ABG pH ABG pCO2 at Pt Temp ABG pO2 at Pt Temp ABG HCO3 ABG O2 Sat (Measured) ABG O2 Content ABG Base Excess [place]lin Test O2 Delivery Device Oxygen Flow Rate Vent Mode Vent Rate Mechanical Rate PEEP Pressure Support Vent Sodium 136 Potassium 3.9 Chloride 89 L Carbon Dioxide 39 H Anion Gap 8 BUN 25 H Creatinine 1.1 Creat Clearance w eGFR 71.75 Random Glucose 144 H Calcium 8.2 L Phosphorus 5.3 H Magnesium 1.9 Total Bilirubin 1.3 H AST 12 L ALT 30 Alkaline Phosphatase 91 Total Protein 6.2 L Albumin 3.2 L TSH Free T4 Free T3 Vancomycin Pre-Dose ASSESSMENT AND PLAN: Acute on Chronic Hypoxic and Hypercapneic Respiratory Failure Acute COPD Exacerbation LV Diastolic Dysfunction r/o Pneumonia Morbid Obesity Severe BOYN/OHS (RDI 156 events per hour: titrated to BIPAP: ) HTN h/o DVT - Medrol - inhaled bronchodilators - O2 to keep Spo2 >90% - Empiric antibiotics - f/u cultures - Lasix - monitor urine output, creatinine - NC O2 as tolerated and NIPPV PRN & QHS - continue anticoagulation - 4W / 4S monitoring Dr Arellano
[2018-07-15] MEDS: VANCOMYCIN 1 GM IVPB SCH (10:51)
--- NOTE | 2018-07-15 11:01 | PN ---
Progress Note, Physician Chief Complaint: patient is extubated on nasal canula to be transferred to telemetry on bipap over night - Current Medication List Current Medications: Active Medications Acetaminophen (Ofirmev Injection -) 1,000 mg IVPB Q6H PRN PRN Reason: FEVER Last Admin: 07/14/18 04:05 Dose: 1,000 mg Chlorhexidine Gluconate (Hibiclens For Decolonization -) 1 applic TP HS [facility] Last Admin: 07/14/18 21:06 Dose: 1 applic Furosemide (Lasix -) 60 mg PO BID [facility] Piperacillin Sod/Tazobactam (Sod 4.5 gm/ Dextrose) 100 mls @ 200 mls/hr IVPB Q8H-IV [facility] Last Admin: 07/15/18 10:06 Dose: 200 mls/hr Vancomycin HCl 1,250 mg/ (Dextrose) 250 mls @ 166.667 mls/hr IVPB BID [facility]; Protocol Last Admin: 07/15/18 10:50 Dose: 166.667 mls/hr Methimazole (Tapazole -) 10 mg PO DAILY [facility] Last Admin: 07/15/18 09:34 Dose: 10 mg Methylprednisolone Sodium Succinate (Solu-Medrol -) 60 mg IVPB Q8H-IV [facility] Last Admin: 07/15/18 09:33 Dose: 60 mg Mupirocin (Bactroban Ointment (For Decolonization) -) 1 applic NS BID [facility] Stop: 07/18/18 09:59 Last Admin: 07/15/18 10:07 Dose: 1 applic Pantoprazole Sodium (Protonix Iv) 40 mg IVPUSH DAILY [facility] Last Admin: 07/15/18 09:33 Dose: 40 mg Potassium Chloride (Potassium Chloride Oral Liquid) 40 meq PO BID [facility] Last Admin: 07/15/18 09:33 Dose: 40 meq Rivaroxaban (Xarelto -) 20 mg PO DAILY [facility] Last Admin: 07/15/18 09:34 Dose: 20 mg - Objective Vital Signs: Vital Signs Temperature 99.8 F H 07/15/18 10:29 Pulse Rate 100 H 07/15/18 10:48 Respiratory Rate 29 H 07/15/18 10:29 Blood Pressure 102/70 07/15/18 10:29 O2 Sat by Pulse Oximetry (%) 97 07/15/18 10:48 Constitutional: Yes: Calm HENT: Yes: Other (nasal canula) Neck: Yes: Other Cardiovascular: Yes: Regular Rate and Rhythm, S1, S2 Respiratory: Yes: CTA Bilaterally, Diminished (at bases) Gastrointestinal: Yes: Normal Bowel Sounds, Soft Genitourinary: Yes: Wilhelm Present Edema: No Neurological: Yes: Alert, Oriented Labs: CBC, BMP 07/15/18 05:30 07/15/18 05:30 INR, PTT INR 1.46 (0.83-1.09) H 07/13/18 07:00 Problem List - Problems (1) Acute respiratory failure Assessment/Plan: s/p extubation on medrol on iv anx per ID Code(s): J96.00 - ACUTE RESPIRATORY FAILURE, UNSP W HYPOXIA OR HYPERCAPNIA (2) Tachycardia Assessment/Plan: david murrieta cardiac monitoring Code(s): R00.0 - TACHYCARDIA, UNSPECIFIED (3) Seizure Assessment/Plan: no more seizure activity Code(s): R56.9 - UNSPECIFIED CONVULSIONS (4) Fever Assessment/Plan: influenza negative possible pna zosyn/vancomycin cultures sent Code(s): R50.9 - FEVER, UNSPECIFIED (5) DVT (deep venous thrombosis) Assessment/Plan: on xarelto Code(s): I82.409 - ACUTE EMBOLISM AND THOMBOS UNSP DEEP VN UNSP LOWER EXTREMITY Assessment/Plan trasnfer to 4s/4 west floor monitor david wilhelm
--- NOTE | 2018-07-15 16:09 | PN ---
Progress Note, Physician Chief Complaint: Pt A&Ox3; on VM; denies chest pain; dyspneic on mild exertion. History of Present Illness: Patient is a 47 y/o black male with a history of BONY, morbid obesity, COPD(on 3L O2), diastolic CHF, anemia, UGI bleeding, HTN, DM (?diet-controlled), hyperthyroidism, glaucoma, DVT and kidney stones who presents for "high potassium". Patient reports he was recently at [facility] where he was intubated for a pneumonia. He was transferred to [facility] for physical therapy. While there they took his labs and found that his potassium was high. He reports feeling fatigued. He denies fever, chills, chest pain, shortness of breath, nausea, vomiting and headache. - Current Medication List Current Medications: Active Medications Acetaminophen (Ofirmev Injection -) 1,000 mg IVPB Q6H PRN PRN Reason: FEVER Last Admin: 07/14/18 04:05 Dose: 1,000 mg Chlorhexidine Gluconate (Hibiclens For Decolonization -) 1 applic TP HS [facility] Last Admin: 07/14/18 21:06 Dose: 1 applic Furosemide (Lasix -) 60 mg PO BID [facility] Piperacillin Sod/Tazobactam (Sod 4.5 gm/ Dextrose) 100 mls @ 200 mls/hr IVPB Q8H-IV [facility] Last Admin: 07/15/18 10:06 Dose: 200 mls/hr Vancomycin HCl 1,250 mg/ (Dextrose) 250 mls @ 166.667 mls/hr IVPB BID [facility]; Protocol Last Admin: 07/15/18 10:50 Dose: 166.667 mls/hr Methimazole (Tapazole -) 10 mg PO DAILY [facility] Last Admin: 07/15/18 09:34 Dose: 10 mg Methylprednisolone Sodium Succinate (Solu-Medrol -) 60 mg IVPB Q8H-IV [facility] Last Admin: 07/15/18 09:33 Dose: 60 mg Mupirocin (Bactroban Ointment (For Decolonization) -) 1 applic NS BID [facility] Stop: 07/18/18 09:59 Last Admin: 07/15/18 10:07 Dose: 1 applic Pantoprazole Sodium (Protonix Iv) 40 mg IVPUSH DAILY [facility] Last Admin: 03/29/19 09:33 Dose: 40 mg Potassium Chloride (Potassium Chloride Oral Liquid) 40 meq PO BID [facility] Last Admin: 07/15/18 09:33 Dose: 40 meq Rivaroxaban (Xarelto -) 20 mg PO DAILY [facility] Last Admin: 07/15/18 09:34 Dose: 20 mg - Objective Vital Signs: Vital Signs Temperature 98.4 F 07/15/18 14:00 Pulse Rate 102 H 07/15/18 14:00 Respiratory Rate 31 H 07/15/18 14:00 Blood Pressure 103/68 07/15/18 14:00 O2 Sat by Pulse Oximetry (%) 95 07/15/18 12:18 Constitutional: Yes: Calm Eyes: Yes: WNL HENT: Yes: WNL Neck: Yes: WNL Cardiovascular: Yes: Tachycardia, S1, S2 Respiratory: Yes: Diminished Gastrointestinal: Yes: Soft, Abdomen, Obese ...Rectal Exam: Yes: Deferred Genitourinary: No: Anuria Breast(s): Yes: WNL Musculoskeletal: Yes: Muscle Weakness Extremities: Yes: Other (chronic induration bilateral LE) Peripheral Pulses WNL: No Peripheral Pulses: Left Doralis Pedis: 1+, Right Dorsalis Pedis: 1+ Integumentary: Yes: Erythema, Venous Stasis Changes Neurological: Yes: Alert, Oriented, Weakness Psychiatric: Yes: Alert, Oriented, Other Labs: CBC, BMP 07/15/18 05:30 07/15/18 05:30 INR, PTT INR 1.46 (0.83-1.09) H 07/13/18 07:00 - ....Imaging Other: Image Reviewed (sinus gachycardia) Problem List - Problems (1) Acute on chronic respiratory failure with hypoxia and hypercapnia Assessment/Plan: Ccntinue bronchodilators, O2, and steroids per pulmnologist Code(s): J96.21 - ACUTE AND CHRONIC RESPIRATORY FAILURE WITH HYPOXIA; J96.22 - ACUTE AND CHRONIC RESPIRATORY FAILURE WITH HYPERCAPNIA (2) Fever Assessment/Plan: 100.3 degrees F early am On Zosyn and Vancomycin. Code(s): R50.9 - FEVER, UNSPECIFIED (3) Tachycardia Assessment/Plan: sinus tachycardia Code(s): R00.0 - TACHYCARDIA, UNSPECIFIED (4) Acute on chronic diastolic CHF (congestive heart failure) Code(s): I50.33 - ACUTE ON CHRONIC DIASTOLIC (CONGESTIVE) HEART FAILURE (5) Bilateral lower extremity edema Code(s): R60.0 - LOCALIZED EDEMA (6) COPD exacerbation Code(s): J44.1 - CHRONIC OBSTRUCTIVE PULMONARY DISEASE W (ACUTE) EXACERBATION (7) HTN (hypertension) Assessment/Plan: Consdier ACEI or ARB (HTN; borderline DM) Code(s): I10 - ESSENTIAL (PRIMARY) HYPERTENSION (8) Moderate to severe pulmonary hypertension Code(s): I27.2 - OTHER SECONDARY PULMONARY HYPERTENSION * DO NOT USE * (9) Morbid obesity Assessment/Plan: In the past, pt has spoken of undergoing gastric bypass surgery. He now speaks of planning to follow a healthier diet, with portion contol as the means to losing weight. Code(s): E66.01 - MORBID (SEVERE) OBESITY DUE TO EXCESS CALORIES (10) Sleep apnea Assessment/Plan: On CPAP Code(s): G47.30 - SLEEP APNEA, UNSPECIFIED (11) DVT (deep venous thrombosis) Assessment/Plan: on rivaroxaban. Code(s): I82.409 - ACUTE EMBOLISM AND THOMBOS UNSP DEEP VN UNSP LOWER EXTREMITY (12) [place] cardiac risk >20% in next 10 years Assessment/Plan: stress MIBI 12/2016 negative for ischemia. Pt's many risks, including morbid obesity, sedenary lifestyle, hyperlipidemiia, DM, HTN, remain challenging for pt to control. Code(s): Z91.89 - OTH PERSONAL RISK FACTORS, NOT ELSEWHERE CLASSIFIED (13) Hyperlipidemia Assessment/Plan: start atorvastatin; keep LDL cholesterol <70 mg/dL. LFTs WNL. Code(s): E78.5 - HYPERLIPIDEMIA, UNSPECIFIED
[2018-07-15] MEDS ORDERED: ACETAMINOPHEN 1000 MG/100 ML VIAL (NON FORMULARY) IVPB PRN (17:30)
[2018-07-15] MEDS: methylPREDNISolone NA SUCC 125 MG/2 ML VIAL IVPB SCH (18:25)
[2018-07-15] MEDS ORDERED: CHLORHEXIDINE GLUCONATE 4% CLEANSER FOR DECOLONIZATION TP SCH (22:00)
[2018-07-15] MEDS ORDERED: MUPIROCIN 2% TOPICAL OINTMENT FOR DECOLONIZATION NS SCH (22:00)
[2018-07-15] MEDS ORDERED: FUROSEMIDE 20 MG TABLET (FP) PO SCH (22:00)
[2018-07-15] MEDS: VANCOMYCIN HCL 1,250 MG in DEXTROSE 5%-WATER - 250 ML IVPB SCH (23:55)
[2018-07-16] MEDS ORDERED: PIPERACILLIN/TAZOBACTAM 4.5 GM VIAL IVPB ONE ×5 (00:56→17:02)
[2018-07-16] MEDS ORDERED: DEXTROSE 5%-WATER 100 ML IVPB ONE ×4 (00:56→17:03)
[2018-07-16] MEDS: methylPREDNISolone NA SUCC 125 MG/2 ML VIAL IVPB SCH ×3 (01:21→17:21)
[2018-07-16] MEDS: PIPERACILLIN/TAZOB 4.5 GM 4.5 GM in DEXTROSE 5%-WATER 100 ML IVPB SCH ×3 (01:22→17:22)
--- NOTE | 2018-07-16 04:04 | PN ---
Progress Note, Physician - Current Medication List Current Medications: Active Medications Acetaminophen (Ofirmev Injection -) 1,000 mg IVPB Q6H PRN PRN Reason: FEVER Chlorhexidine Gluconate (Hibiclens For Decolonization -) 1 applic TP HS [facility] Last Admin: 07/16/18 01:20 Dose: Not Given Furosemide (Lasix -) 60 mg PO BIDLASIX [facility] Piperacillin Sod/Tazobactam (Sod 4.5 gm/ Dextrose) 100 mls @ 200 mls/hr IVPB Q8H-IV [facility] Last Admin: 07/16/18 01:22 Dose: 200 mls/hr Vancomycin HCl 1,250 mg/ (Dextrose) 250 mls @ 166.667 mls/hr IVPB BID [facility]; Protocol Last Admin: 07/15/18 23:55 Dose: 166.667 mls/hr Methimazole (Tapazole -) 10 mg PO DAILY [facility] Methylprednisolone Sodium Succinate (Solu-Medrol -) 60 mg IVPB Q8H-IV [facility] Last Admin: 07/16/18 01:21 Dose: 60 mg Mupirocin (Bactroban Ointment (For Decolonization) -) 1 applic NS BID [facility] Stop: 07/18/18 09:59 Last Admin: 07/16/18 01:20 Dose: Not Given Pantoprazole Sodium (Protonix Iv) 40 mg IVPUSH DAILY [facility] Potassium Chloride (Potassium Chloride Oral Liquid) 40 meq PO BID [facility] Last Admin: 07/15/18 22:00 Dose: 40 meq Rivaroxaban (Xarelto -) 20 mg PO DAILY [facility] - Objective Vital Signs: Vital Signs Temperature 98.6 F 07/15/18 22:00 Pulse Rate 106 H 07/15/18 22:00 Respiratory Rate 20 07/15/18 22:00 Blood Pressure 121/73 07/15/18 22:00 O2 Sat by Pulse Oximetry (%) 93 L 07/16/18 03:58 Labs: CBC, BMP 07/15/18 05:30 07/15/18 05:30 INR, PTT INR 1.46 (0.83-1.09) H 07/13/18 07:00 Problem List - Problems (1) Acute on chronic respiratory failure with hypoxia and hypercapnia Assessment/Plan: Ccntinue bronchodilators, O2, and steroids per pulmnologist Code(s): J96.21 - ACUTE AND CHRONIC RESPIRATORY FAILURE WITH HYPOXIA; J96.22 - ACUTE AND CHRONIC RESPIRATORY FAILURE WITH HYPERCAPNIA (2) Fever Assessment/Plan: Afebrile On Zosyn and Vancomycin. Code(s): R50.9 - FEVER, UNSPECIFIED (3) Tachycardia Assessment/Plan: periods of sinus tachycardia with multiple factors responsible, including intermittent fever, anxiety, respirartory distress, obesity, sedentary state, BONY, hyperthyroidism, dehydration. Code(s): R00.0 - TACHYCARDIA, UNSPECIFIED (4) Acute on chronic diastolic CHF (congestive heart failure) Assessment/Plan: on furosemide CXR shows improvement of CHF changes. Consider changing to ACEI or ARB (CHF; borderline DM; hypokalemia while on loop diuretic). F/u BUN/Cr, Is and Os, daily weight, elecgtrolytes. Code(s): I50.33 - ACUTE ON CHRONIC DIASTOLIC (CONGESTIVE) HEART FAILURE (5) Bilateral lower extremity edema Code(s): R60.0 - LOCALIZED EDEMA (6) COPD exacerbation Code(s): J44.1 - CHRONIC OBSTRUCTIVE PULMONARY DISEASE W (ACUTE) EXACERBATION (7) HTN (hypertension) Assessment/Plan: Consdier ACEI or ARB (HTN; borderline DM; hypokalemia while on loop diuretic; diastolic CHF) Code(s): I10 - ESSENTIAL (PRIMARY) HYPERTENSION (8) Moderate to severe pulmonary hypertension Code(s): I27.2 - OTHER SECONDARY PULMONARY HYPERTENSION * DO NOT USE * (9) Morbid obesity Code(s): E66.01 - MORBID (SEVERE) OBESITY DUE TO EXCESS CALORIES (10) Sleep apnea Code(s): G47.30 - SLEEP APNEA, UNSPECIFIED (11) DVT (deep venous thrombosis) Code(s): I82.409 - ACUTE EMBOLISM AND THOMBOS UNSP DEEP VN UNSP LOWER EXTREMITY (12) [place] cardiac risk >20% in next 10 years Code(s): Z91.89 - OTH PERSONAL RISK FACTORS, NOT ELSEWHERE CLASSIFIED (13) Hyperlipidemia Code(s): E78.5 - HYPERLIPIDEMIA, UNSPECIFIED Assessment/Plan CCU time spent: 35 minutes
[2018-07-16] MEDS: FUROSEMIDE 40 MG TABLET (FP) PO SCH ×2 (06:21→14:01)
[2018-07-16 08:37] LABS: HEMATOCRIT 40.4 % (35.4-49); MCH 29.2 pg (25.7-33.7); MCHC 32.1 g/dl (32.0-35.9); MEAN CELL VOLUME 90.8 fl (80-96); MEAN PLT VOLUME 9.1 fl (7.5-11.1); PLATELET COUNT 142 K/MM3 (134-434); RBC 4.45 M/mm3 (4.00-5.60); RDW 15.2 % (11.9-15.9); WHITE BLOOD COUNT 8.4 K/mm3 (4.0-10.0)
[2018-07-16 09:12] LABS: ALBUMIN 3.2 g/dl (3.4-5.0); ALK PHOS 86 U/L (45-117); ANION GAP 3 MMOL/L (8-16); BILIRUBIN,TOTAL 0.7 mg/dL (0.2-1); BLOOD UREA NITROGEN 21 mg/dL (7-18); CALCIUM 8.9 mg/dL (8.5-10.1); CHLORIDE 92 mmol/L (98-107); CO2 43 mmol/L (21-32); CREATININE 0.8 mg/dL (0.55-1.3); GLUCOSE,RANDOM 134 mg/dL (74-106); MAGNESIUM 2.1 mg/dL (1.8-2.4); PHOSPHOROUS 3.6 mg/dL (2.5-4.9); POTASSIUM 4.6 mmol/L (3.5-5.1); SGOT/AST 10 U/L (15-37); SGPT/ALT 30 U/L (13-61); SODIUM 137 mmol/L (136-145); TOT PROT 6.3 g/dl (6.4-8.2)
[2018-07-16] MEDS: PANTOPRAZOLE SODIUM 40 MG VIAL IVPUSH SCH (10:49)
[2018-07-16] MEDS: VANCOMYCIN HCL 1,250 MG in DEXTROSE 5%-WATER - 250 ML IVPB SCH ×2 (10:50→22:03)
[2018-07-16] MEDS: RIVAROXABAN 20 MG TABLET PO SCH (10:50)
[2018-07-16] MEDS: METHIMAZOLE 10 MG TABLET (FP) PO SCH (10:50)
[2018-07-16] MEDS: POTASSIUM CHLORIDE ORAL LIQUID 20 MEQ/15 ML PO SCH ×3 (10:50→22:05)
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
--- NOTE | 2018-07-16 12:07 | PN ---
Progress Note, Physician Chief Complaint: ASLEEP EVENTS AND NOTES REVIEWED EXTUBATED AND NOW ON NC 02 SUPPORT WITH BIPAP AT NIGHT - Current Medication List Current Medications: Active Medications Acetaminophen (Ofirmev Injection -) 1,000 mg IVPB Q6H PRN PRN Reason: FEVER Furosemide (Lasix -) 60 mg PO BIDLASIX PALLAVI Last Admin: 07/16/18 06:21 Dose: 60 mg Piperacillin Sod/Tazobactam (Sod 4.5 gm/ Dextrose) 100 mls @ 200 mls/hr IVPB Q8H-IV PALLAVI Last Admin: 07/16/18 10:51 Dose: 200 mls/hr Vancomycin HCl 1,250 mg/ (Dextrose) 250 mls @ 166.667 mls/hr IVPB BID PALLAVI; Protocol Last Admin: 07/16/18 10:50 Dose: 166.667 mls/hr Methimazole (Tapazole -) 10 mg PO DAILY PALLAVI Last Admin: 07/16/18 10:50 Dose: 10 mg Methylprednisolone Sodium Succinate (Solu-Medrol -) 60 mg IVPB Q8H-IV PALLAVI Last Admin: 07/16/18 10:50 Dose: 60 mg Pantoprazole Sodium (Protonix Iv) 40 mg IVPUSH DAILY PALLAVI Last Admin: 07/16/18 10:49 Dose: 40 mg Potassium Chloride (Potassium Chloride Oral Liquid) 40 meq PO BID PALLAVI Last Admin: 07/16/18 10:50 Dose: 40 meq Rivaroxaban (Xarelto -) 20 mg PO DAILY PALLAVI Last Admin: 07/16/18 10:50 Dose: 20 mg - Objective Vital Signs: Vital Signs Temperature 98.1 F 07/16/18 05:18 Pulse Rate 100 H 07/16/18 05:18 Respiratory Rate 20 07/16/18 05:18 Blood Pressure 130/49 L 07/16/18 05:18 O2 Sat by Pulse Oximetry (%) 100 07/16/18 06:48 Constitutional: Yes: No Distress HENT: Yes: WNL Cardiovascular: Yes: Regular Rate and Rhythm Respiratory: Yes: On Nasal O2 Gastrointestinal: Yes: Abdomen, Obese Genitourinary: Yes: Other Musculoskeletal: Yes: Muscle Weakness Integumentary: Yes: Other Neurological: Yes: Pre-Existing Deficit Labs: CBC, BMP 07/16/18 07:40 07/16/18 07:40 INR, PTT INR 1.46 (0.83-1.09) H 07/13/18 07:00 Problem List - Problems (1) Acute on chronic respiratory failure with hypoxia and hypercapnia Code(s): J96.21 - ACUTE AND CHRONIC RESPIRATORY FAILURE WITH HYPOXIA; J96.22 - ACUTE AND CHRONIC RESPIRATORY FAILURE WITH HYPERCAPNIA (2) Acute respiratory failure Code(s): J96.00 - ACUTE RESPIRATORY FAILURE, UNSP W HYPOXIA OR HYPERCAPNIA (3) Fever Code(s): R50.9 - FEVER, UNSPECIFIED (4) Seizure Code(s): R56.9 - UNSPECIFIED CONVULSIONS (5) Tachycardia Code(s): R00.0 - TACHYCARDIA, UNSPECIFIED (6) Acute and chronic respiratory failure ([id number]-kyvfjyg) Code(s): J96.20 - ACUTE AND CHR RESP FAILURE, UNSP W HYPOXIA OR HYPERCAPNIA (7) Acute exacerbation of chronic obstructive pulmonary disease (COPD) Code(s): J44.1 - CHRONIC OBSTRUCTIVE PULMONARY DISEASE W (ACUTE) EXACERBATION (8) Depression Code(s): F32.9 - MAJOR DEPRESSIVE DISORDER, SINGLE EPISODE, UNSPECIFIED (9) Diarrhea Code(s): R19.7 - DIARRHEA, UNSPECIFIED (10) Dvt femoral (deep venous thrombosis) Code(s): I82.419 - ACUTE EMBOLISM AND THROMBOSIS OF UNSPECIFIED FEMORAL VEIN (11) Dyspnea Code(s): R06.00 - DYSPNEA, UNSPECIFIED Qualifiers: Dyspnea type: shortness of breath Qualified Code(s): R06.02 - Shortness of breath (12) Edema Code(s): R60.9 - EDEMA, UNSPECIFIED (13) Enteritis Code(s): K52.9 - NONINFECTIVE GASTROENTERITIS AND COLITIS, UNSPECIFIED (14) Glaucoma Code(s): H40.9 - UNSPECIFIED GLAUCOMA (15) HTN (hypertension) Code(s): I10 - ESSENTIAL (PRIMARY) HYPERTENSION (16) Hypercapnic respiratory failure Code(s): J96.92 - RESPIRATORY FAILURE, UNSPECIFIED WITH HYPERCAPNIA Qualifiers: Chronicity: acute on chronic Qualified Code(s): J96.22 - Acute and chronic respiratory failure with hypercapnia (17) Hyperkalemia Code(s): E87.5 - HYPERKALEMIA (18) Obstructive apnea Code(s): G47.33 - OBSTRUCTIVE SLEEP APNEA (ADULT) (PEDIATRIC) (19) Pulmonary hypertension Code(s): I27.2 - OTHER SECONDARY PULMONARY HYPERTENSION * DO NOT USE * (20) Sepsis Code(s): A41.9 - SEPSIS, UNSPECIFIED ORGANISM Qualifiers: Sepsis type: sepsis due to unspecified organism Qualified Code(s): A41.9 - Sepsis, unspecified organism Assessment/Plan ON NASAL CANNULA 02 SUPPORT TAPER SOLUMEDROL IV BIPAP FOR 02 SUPPORT AT NIGHT SLEEP APNES F/U PULMONARY CHECKING LABS 2X DAY RENAL EVAL FOR ACUTE RENAL FAILURE HYPERKALEMIA DVT TREATMENT ON XARELTO IV ABX CHECK CULTURES CHECK WITH ID FOR F/U AND POSSIBLE PICC LINE SNF
--- NOTE | 2018-07-16 14:32 | PN ---
Progress Note (short form) - Note Progress Note: NAD on NC O2. Used NIPPV overnight. Reports some soreness of throat and had some difficulty in swallowing solids for breakfast. Has not eaten lunch yet. Breathing feels like it is improving. Intake & Output 07/13/18 07/14/18 07/15/18 07/16/18 23:59 23:59 23:59 23:59 Intake Total 4383 188 4390 690 Output Total 3200 2100 1900 1200 Balance -1513 -1690 -570 -510 Weight 352 lb 6 oz 355 lb 348 lb 8 oz 347 lb 9.6 oz Last Vital Signs Temp Pulse Resp BP Pulse Ox 97.4 F L 94 H 22 H 121/71 95 07/16/18 10:00 07/16/18 10:00 07/16/18 10:00 07/16/18 10:00 07/16/18 10:00 Active Medications Acetaminophen (Ofirmev Injection -) 1,000 mg IVPB Q6H PRN PRN Reason: FEVER Furosemide (Lasix -) 60 mg PO BIDLASIX [facility] Last Admin: 07/16/18 14:01 Dose: 60 mg Piperacillin Sod/Tazobactam (Sod 4.5 gm/ Dextrose) 100 mls @ 200 mls/hr IVPB Q8H-IV PALLAVI Last Admin: 07/16/18 10:51 Dose: 200 mls/hr Vancomycin HCl 1,250 mg/ (Dextrose) 250 mls @ 166.667 mls/hr IVPB BID PALLAVI; Protocol Last Admin: 07/16/18 10:50 Dose: 166.667 mls/hr Methimazole (Tapazole -) 10 mg PO DAILY PALLAVI Last Admin: 07/16/18 10:50 Dose: 10 mg Methylprednisolone Sodium Succinate (Solu-Medrol -) 60 mg IVPB Q8H-IV PALLAVI Last Admin: 07/16/18 10:50 Dose: 60 mg Pantoprazole Sodium (Protonix Iv) 40 mg IVPUSH DAILY PALLAVI Last Admin: 07/16/18 10:49 Dose: 40 mg Potassium Chloride (Potassium Chloride Oral Liquid) 40 meq PO BID PALLAVI Last Admin: 07/16/18 10:50 Dose: 40 meq Rivaroxaban (Xarelto -) 20 mg PO DAILY PALLAVI Last Admin: 07/16/18 10:50 Dose: 20 mg Gen: Awake and alert on NC O2 Heart: RRR Lung: distant breath sounds, no active wheezing Abd: soft, nontender, obese Ext: no edema Laboratory Results - last 24 hr 07/16/18 07/16/18 07:40 07:40 WBC 8.4 RBC 4.45 Hgb 13.0 Hct 40.4 MCV 90.8 MCH 29.2 MCHC 32.1 RDW 15.2 Absolute Neuts (auto) 7.6 Neutrophils % No Result Required. Lymphocytes % No Result Required. Nucleated RBC % 0 Sodium 137 Potassium 4.6 Chloride 92 L Carbon Dioxide 43 H Anion Gap 3 L BUN 21 H Creatinine 0.8 Creat Clearance w eGFR 103.62 Random Glucose 134 H Calcium 8.9 Phosphorus 3.6 Magnesium 2.1 Total Bilirubin 0.7 AST 10 L ALT 30 Alkaline Phosphatase 86 Total Protein 6.3 L Albumin 3.2 L ASSESSMENT AND PLAN: Acute on Chronic Hypoxic and Hypercapneic Respiratory Failure Acute COPD Exacerbation LV Diastolic Dysfunction r/o Pneumonia Morbid Obesity Severe BONY/OHS (RDI 156 events per hour: titrated to BIPAP: ) HTN h/o DVT - Cautious PO intake - Medrol - inhaled bronchodilators - O2 to keep Spo2 >90% - Empiric antibiotics - Lasix - monitor urine output, creatinine - NC O2 as tolerated and NIPPV PRN & QHS - continue anticoagulation Dr Arellano
[2018-07-16 16:31] LABS: PLATELET ESTIMATE ADEQUATE
[2018-07-16] MEDS ORDERED: PT OWN MED DRAWER 7, Y5N ONE (21:51)
[2018-07-17] MEDS ORDERED: PIPERACILLIN/TAZOBACTAM 4.5 GM VIAL IVPB ONE ×3 (00:52→17:32)
[2018-07-17] MEDS ORDERED: DEXTROSE 5%-WATER 100 ML IVPB ONE ×3 (00:53→17:32)
[2018-07-17] MEDS: PIPERACILLIN/TAZOB 4.5 GM 4.5 GM in DEXTROSE 5%-WATER 100 ML IVPB SCH ×3 (01:57→18:03)
[2018-07-17] MEDS: methylPREDNISolone NA SUCC 125 MG/2 ML VIAL IVPB SCH ×2 (01:58→10:34)
[2018-07-17] MEDS: FUROSEMIDE 40 MG TABLET (FP) PO SCH ×2 (06:18→14:17)
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
[2018-07-17] MEDS: PANTOPRAZOLE SODIUM 40 MG VIAL IVPUSH SCH (10:32)
[2018-07-17] MEDS: POTASSIUM CHLORIDE ORAL LIQUID 20 MEQ/15 ML PO SCH ×3 (10:33→22:01)
[2018-07-17] MEDS: RIVAROXABAN 20 MG TABLET PO SCH (10:34)
[2018-07-17] MEDS: METHIMAZOLE 10 MG TABLET (FP) PO SCH (10:34)
[2018-07-17] MEDS: VANCOMYCIN HCL 1,250 MG in DEXTROSE 5%-WATER - 250 ML IVPB SCH ×2 (10:39→22:04)
--- NOTE | 2018-07-17 10:51 | PN ---
Progress Note, Physician Chief Complaint: ASLEEP IN BIPAP NO EVENTS OVERNIGHT - Current Medication List Current Medications: Active Medications Acetaminophen (Ofirmev Injection -) 1,000 mg IVPB Q6H PRN PRN Reason: FEVER Furosemide (Lasix -) 60 mg PO BIDLASIX [facility] Last Admin: 07/17/18 06:18 Dose: 60 mg Piperacillin Sod/Tazobactam (Sod 4.5 gm/ Dextrose) 100 mls @ 200 mls/hr IVPB Q8H-IV [facility] Last Admin: 07/17/18 10:32 Dose: 200 mls/hr Vancomycin HCl 1,250 mg/ (Dextrose) 250 mls @ 166.667 mls/hr IVPB BID [facility]; Protocol Last Admin: 07/17/18 10:39 Dose: 166.667 mls/hr Methimazole (Tapazole -) 10 mg PO DAILY [facility] Last Admin: 07/17/18 10:34 Dose: 10 mg Methylprednisolone Sodium Succinate (Solu-Medrol -) 60 mg IVPB Q8H-IV [facility] Last Admin: 07/17/18 10:34 Dose: 60 mg Pantoprazole Sodium (Protonix Iv) 40 mg IVPUSH DAILY [facility] Last Admin: 07/17/18 10:32 Dose: 40 mg Potassium Chloride (Potassium Chloride Oral Liquid) 40 meq PO BID [facility] Last Admin: 07/17/18 10:33 Dose: 40 meq Rivaroxaban (Xarelto -) 20 mg PO DAILY [facility] Last Admin: 07/17/18 10:34 Dose: 20 mg - Objective Vital Signs: Vital Signs Temperature 97.7 F 07/17/18 10:00 Pulse Rate 93 H 07/17/18 10:31 Respiratory Rate 18 07/17/18 10:00 Blood Pressure 141/98 07/17/18 10:00 O2 Sat by Pulse Oximetry (%) 100 07/17/18 10:31 Constitutional: Yes: Mild Distress Cardiovascular: Yes: Regular Rate and Rhythm Respiratory: Yes: Diminished, On BiPap Gastrointestinal: Yes: Abdomen, Obese Genitourinary: Yes: Incontinence Musculoskeletal: Yes: Muscle Weakness Extremities: Yes: Other Edema: No Labs: CBC, BMP 07/16/18 07:40 07/16/18 07:40 INR, PTT INR 1.46 (0.83-1.09) H 03/27/19 07:00 Problem List - Problems (1) Acute on chronic respiratory failure with hypoxia and hypercapnia Code(s): J96.21 - ACUTE AND CHRONIC RESPIRATORY FAILURE WITH HYPOXIA; J96.22 - ACUTE AND CHRONIC RESPIRATORY FAILURE WITH HYPERCAPNIA (2) Acute respiratory failure Code(s): J96.00 - ACUTE RESPIRATORY FAILURE, UNSP W HYPOXIA OR HYPERCAPNIA (3) Fever Code(s): R50.9 - FEVER, UNSPECIFIED (4) Seizure Code(s): R56.9 - UNSPECIFIED CONVULSIONS (5) Tachycardia Code(s): R00.0 - TACHYCARDIA, UNSPECIFIED (6) Acute and chronic respiratory failure (uzwkj-dy-zhcmjno) Code(s): J96.20 - ACUTE AND CHR RESP FAILURE, UNSP W HYPOXIA OR HYPERCAPNIA (7) Acute exacerbation of chronic obstructive pulmonary disease (COPD) Code(s): J44.1 - CHRONIC OBSTRUCTIVE PULMONARY DISEASE W (ACUTE) EXACERBATION (8) Depression Code(s): F32.9 - MAJOR DEPRESSIVE DISORDER, SINGLE EPISODE, UNSPECIFIED (9) Diarrhea Code(s): R19.7 - DIARRHEA, UNSPECIFIED (10) Dvt femoral (deep venous thrombosis) Code(s): I82.419 - ACUTE EMBOLISM AND THROMBOSIS OF UNSPECIFIED FEMORAL VEIN (11) Dyspnea Code(s): R06.00 - DYSPNEA, UNSPECIFIED Qualifiers: Dyspnea type: shortness of breath Qualified Code(s): R06.02 - Shortness of breath (12) Edema Code(s): R60.9 - EDEMA, UNSPECIFIED (13) Enteritis Code(s): K52.9 - NONINFECTIVE GASTROENTERITIS AND COLITIS, UNSPECIFIED (14) Glaucoma Code(s): H40.9 - UNSPECIFIED GLAUCOMA (15) HTN (hypertension) Code(s): I10 - ESSENTIAL (PRIMARY) HYPERTENSION (16) Hypercapnic respiratory failure Code(s): J96.92 - RESPIRATORY FAILURE, UNSPECIFIED WITH HYPERCAPNIA Qualifiers: Chronicity: acute on chronic Qualified Code(s): J96.22 - Acute and chronic respiratory failure with hypercapnia (17) Hyperkalemia Code(s): E87.5 - HYPERKALEMIA (18) Obstructive apnea Code(s): G47.33 - OBSTRUCTIVE SLEEP APNEA (ADULT) (PEDIATRIC) (19) Pulmonary hypertension Code(s): I27.2 - OTHER SECONDARY PULMONARY HYPERTENSION * DO NOT USE * (20) Sepsis Code(s): A41.9 - SEPSIS, UNSPECIFIED ORGANISM Qualifiers: Sepsis type: sepsis due to unspecified organism Qualified Code(s): A41.9 - Sepsis, unspecified organism Assessment/Plan CHF/RESTRICTIVE AIRWAY BIPAP FOR RESPIRATORY SUPPORT TAPER SOLUMEDROL IV SLEEP APNEA F/U PULMONARY CHECKING LABS 2X DAY RENAL EVAL FOR ACUTE RENAL FAILURE HYPERKALEMIA DVT TREATMENT ON XARELTO IV ABX CHECK CULTURES CHECK WITH ID FOR F/U AND POSSIBLE PICC LINE SNF NEEDS A BASELINE FOR OVERALL MULTI-COMORBID DISEASE STATE WITH A STRONG PSYCHYOLGY/PSYCHIATRY FOLLOW UP WITH HIS PMD DIETARY CONSULT/MANAGER GAMES/FAMILY OR NEXT OF KIN NEED TO MEET WITH OUR PRIMARY MEDICAL TEAM BEFORE DISCHARGE.
[2018-07-17] MEDS: NYSTATIN 500,000 UNITS/5 ML SUSPENSION PO SCH ×2 (11:19→18:04)
--- NOTE | 2018-07-17 11:34 | PN ---
Progress Note (short form) - Note Progress Note: extubated alert notes throat discomfort cannot eat, drinking fluids has had this since yesterday Vital Signs Period Temp Pulse Resp BP Sys/Woodall Pulse Ox Last 24 Hr 97.3 F-98 F 93-103 18-22 112-141/68-98 95-100 no thrush throat enlarged (unchanged from admission) cor-rrr lungs decreased bs at bases abd soft,nt ext venous stasis CBC, BMP 07/16/18 07:40 07/16/18 07:40 Microbiology 07/13/18 07:15 Blood - Peripheral Venous Blood Culture - Preliminary NO GROWTH OBTAINED AFTER 96 HOURS, INCUBATION TO CONTINUE FOR 1 DAYS. 07/13/18 07:00 Blood - Peripheral Venous Blood Culture - Preliminary NO GROWTH OBTAINED AFTER 96 HOURS, INCUBATION TO CONTINUE FOR 1 DAYS. 07/13/18 16:30 Sputum - Endotrachea Suction/Ventilator Gram Stain - Final 07/13/18 16:30 Sputum - Endotrachea Suction/Ventilator Sputum Culture - Final S Aureus 07/12/18 12:15 Urine For Antigen Detection Legionella Antigen - Final 07/12/18 12:15 Urine For Antigen Detection Streptococcus pneumoniae Antigen (M - Final influenza negative cxray unchanged Current Medications Acetaminophen (Ofirmev Injection -) 1,000 mg IVPB Q6H PRN PRN Reason: FEVER Last Admin: 07/14/18 04:05 Dose: 1,000 mg Chlorhexidine Gluconate (Hibiclens For Decolonization -) 1 applic TP HS [facility] Last Admin: 07/14/18 21:06 Dose: 1 applic Furosemide (Lasix Injection -) 60 mg IVPUSH BIDLASIX [facility] Last Admin: 07/15/18 05:15 Dose: 60 mg Piperacillin Sod/Tazobactam (Sod 4.5 gm/ Dextrose) 100 mls @ 200 mls/hr IVPB Q8H-IV [facility] Vancomycin HCl 1,000 mg/ (Dextrose) 250 mls @ 166.667 mls/hr IVPB Q12H [facility]; Protocol Methimazole (Tapazole -) 10 mg PO DAILY [facility] Last Admin: 07/14/18 09:59 Dose: 10 mg Methylprednisolone Sodium Succinate (Solu-Medrol -) 60 mg IVPB Q8H-IV [facility] Last Admin: 07/15/18 02:18 Dose: 60 mg Mupirocin (Bactroban Ointment (For Decolonization) -) 1 applic NS BID [facility] Stop: 07/18/18 09:59 Last Admin: 07/14/18 21:06 Dose: 1 applic Pantoprazole Sodium (Protonix Iv) 40 mg IVPUSH DAILY [facility] Last Admin: 07/14/18 10:02 Dose: 40 mg Potassium Chloride (Potassium Chloride Oral Liquid) 40 meq PO BID [facility] Last Admin: 07/14/18 21:06 Dose: Not Given Rivaroxaban (Xarelto -) 20 mg PO DAILY [facility] Last Admin: 07/14/18 09:58 Dose: 20 mg a/p hypercapneic respiratory failure-extubated cannot r/o pneumonia ?aspiration, healthcare associated morbid obesity-overall difficult physical exam and imaging due to patient's size sputum culture MRSA day #5 antibiotics-vanco/zosyn, check vanco trough in am throat pain- ?secondary to ET tube d/w pulmonary - to re-evaluate consider increase steroids Problem List - Problems (1) Acute on chronic respiratory failure with hypoxia and hypercapnia Code(s): J96.21 - ACUTE AND CHRONIC RESPIRATORY FAILURE WITH HYPOXIA; J96.22 - ACUTE AND CHRONIC RESPIRATORY FAILURE WITH HYPERCAPNIA (2) Fever Code(s): R50.9 - FEVER, UNSPECIFIED (3) Pneumonia Code(s): J18.9 - PNEUMONIA, UNSPECIFIED ORGANISM (4) Morbid obesity with BMI of 50.0-59.9, adult Code(s): Z68.43 - BODY MASS INDEX (BMI) 50-59.9, ADULT
--- NOTE | 2018-07-17 12:43 | PN ---
Progress Note (short form) - Note Progress Note: NAD on NC O2. Still with some hoarseness of voice and discomfort on swallowing solids, but seems better than yesterday. Currently eating lunch. No pooling of secretions. Used NIPPV overnight. Breathing feels like it is improving. Intake & Output 07/14/18 07/15/18 07/16/18 07/17/18 23:59 23:59 23:59 23:59 Intake Total 410 1330 2070 740 Output Total 2100 1900 1900 200 Balance -1690 -570 170 540 Weight 355 lb 348 lb 8 oz 347 lb 9.6 oz 211 lb 9.6 oz Last Vital Signs Temp Pulse Resp BP Pulse Ox 97.7 F 93 H 18 141/98 100 07/17/18 10:00 07/17/18 10:31 07/17/18 10:00 07/17/18 10:00 07/17/18 10:31 Active Medications Acetaminophen (Ofirmev Injection -) 1,000 mg IVPB Q6H PRN PRN Reason: FEVER Furosemide (Lasix -) 60 mg PO BIDLASIX [facility] Last Admin: 07/17/18 06:18 Dose: 60 mg Piperacillin Sod/Tazobactam (Sod 4.5 gm/ Dextrose) 100 mls @ 200 mls/hr IVPB Q8H-IV [facility] Last Admin: 07/17/18 10:32 Dose: 200 mls/hr Vancomycin HCl 1,250 mg/ (Dextrose) 250 mls @ 166.667 mls/hr IVPB BID [facility]; Protocol Last Admin: 07/17/18 10:39 Dose: 166.667 mls/hr Methimazole (Tapazole -) 10 mg PO DAILY [facility] Last Admin: 07/17/18 10:34 Dose: 10 mg Methylprednisolone Sodium Succinate (Solu-Medrol -) 60 mg IVPB Q8H-IV [facility] Last Admin: 07/17/18 10:34 Dose: 60 mg Nystatin (Nystatin Oral Suspension -) 500,000 units PO Q6HPO [facility] Last Admin: 07/17/18 11:19 Dose: 500,000 units Pantoprazole Sodium (Protonix -) 40 mg PO BID [facility] Potassium Chloride (Potassium Chloride Oral Liquid) 40 meq PO BID [facility] Last Admin: 07/17/18 10:56 Dose: Not Given Rivaroxaban (Xarelto -) 20 mg PO DAILY [facility] Last Admin: 07/17/18 10:34 Dose: 20 mg Gen: Awake and alert on NC O2 Heart: RRR Lung: distant breath sounds, no active wheezing Abd: soft, nontender, obese Ext: no edema Laboratory Results - last 24 hr 07/16/18 07:40 Plt Count 142 MPV 9.1 Total Counted 100 Neutrophils % (Manual) 85.0 H Band Neutrophils % 2.0 Lymphocytes % (Manual) 3.0 L D Monocytes % (Manual) 7 D Myelocytes % (Man) 2 Platelet Estimate Adequate ASSESSMENT AND PLAN: Acute on Chronic Hypoxic and Hypercapneic Respiratory Failure Acute COPD Exacerbation LV Diastolic Dysfunction r/o Pneumonia Morbid Obesity Severe BONY/OHS (RDI 156 events per hour: titrated to BIPAP: ) HTN h/o DVT Upper Airway symptoms likely related to intubation - Decadron Q8 - Cautious PO intake - inhaled bronchodilators - O2 to keep Spo2 >90% - Empiric antibiotics - Lasix - monitor urine output, creatinine - NC O2 as tolerated and NIPPV PRN & QHS - continue anticoagulation - If worsening synptoms -> move to ICU and ENT evaluation: Clinically seems better today. Dr Arellano
[2018-07-17] MEDS ORDERED: PT OWN MED DRAWER 7, Y5N ONE ×2 (13:39→21:53)
[2018-07-17] MEDS: DEXAMETHASONE SOD PHOSPHATE 10 MG/1 ML VIAL IVPUSH SCH ×2 (14:17→18:03)
[2018-07-17] MEDS: PANTOPRAZOLE 40 MG TABLET (FP) PO SCH (22:03)
[2018-07-18] MEDS: NYSTATIN 500,000 UNITS/5 ML SUSPENSION PO SCH ×4 (00:45→17:53)
[2018-07-18] MEDS ORDERED: PIPERACILLIN/TAZOBACTAM 4.5 GM VIAL IVPB ONE ×3 (01:58→17:07)
[2018-07-18] MEDS ORDERED: DEXTROSE 5%-WATER 100 ML IVPB ONE ×3 (01:58→17:08)
[2018-07-18] MEDS ORDERED: DEXAMETHASONE SOD PHOSPHATE 4 MG/1 ML VIAL IVPUSH SCH (02:45)
[2018-07-18] MEDS: PIPERACILLIN/TAZOB 4.5 GM 4.5 GM in DEXTROSE 5%-WATER 100 ML IVPB SCH ×3 (02:53→17:53)
[2018-07-18] MEDS: DEXAMETHASONE SOD PHOSPHATE 10 MG/1 ML VIAL IVPUSH SCH ×3 (03:12→17:54)
[2018-07-18] MEDS: FUROSEMIDE 40 MG TABLET (FP) PO SCH ×2 (05:38→15:20)
[2018-07-18 06:42] LABS: HEMATOCRIT 41.5 % (35.4-49); HEMOGLOBIN 12.9 GM/dL (11.7-16.9); MCH 28.3 pg (25.7-33.7); MCHC 31.1 g/dl (32.0-35.9); MEAN CELL VOLUME 91.1 fl (80-96); MEAN PLT VOLUME 7.5 fl (7.5-11.1); PLATELET COUNT 195 K/MM3 (134-434); RBC 4.55 M/mm3 (4.00-5.60); RDW 15.1 % (11.9-15.9); WHITE BLOOD COUNT 9.3 K/mm3 (4.0-10.0)
[2018-07-18 07:25] LABS: ALBUMIN 3.2 g/dl (3.4-5.0); ALK PHOS 94 U/L (45-117); ANION GAP 4 MMOL/L (8-16); BILIRUBIN,TOTAL 0.6 mg/dL (0.2-1); BLOOD UREA NITROGEN 19 mg/dL (7-18); CALCIUM 8.6 mg/dL (8.5-10.1); CHLORIDE 87 mmol/L (98-107); CO2 44 mmol/L (21-32); CREATININE 0.8 mg/dL (0.55-1.3); GLUCOSE,RANDOM 164 mg/dL (74-106); POTASSIUM 4.5 mmol/L (3.5-5.1); SGOT/AST 15 U/L (15-37); SGPT/ALT 37 U/L (13-61); SODIUM 135 mmol/L (136-145); TOT PROT 6.3 g/dl (6.4-8.2)
--- NOTE | 2018-07-18 09:59 | EKG ---
Test Reason : Blood Pressure : / mmHG Vent. Rate : 099 BPM Atrial Rate : 099 BPM P-R Int : 166 ms QRS Dur : 086 ms QT Int : 352 ms P-R-T Axes : 052 047 053 degrees QTc Int : 451 ms NORMAL SINUS RHYTHM NORMAL ECG WHEN COMPARED WITH ECG OF 13-JUL-2018 12:12, NO SIGNIFICANT CHANGE WAS FOUND Confirmed by DIAN WARD MD ([id number]) on 07/18/2018 9:59:27 AM Referred By: Sabrina STANLEY Confirmed By:DIAN WARD MD
[2018-07-18] MEDS: PANTOPRAZOLE 40 MG TABLET (FP) PO SCH ×2 (10:34→22:39)
[2018-07-18] MEDS: RIVAROXABAN 20 MG TABLET PO SCH (10:34)
[2018-07-18] MEDS: METHIMAZOLE 10 MG TABLET (FP) PO SCH (10:34)
[2018-07-18] MEDS: POTASSIUM CHLORIDE ORAL LIQUID 20 MEQ/15 ML PO SCH ×3 (10:34→22:48)
--- NOTE | 2018-07-18 10:38 | CONSULT ---
Admitting History and Physical - Primary Care Physician PCP: Glenny Randall - Admission History of Present Illness: This 47 [address] male from [facility] with PMHX of Chronic morbid obesity,BONY, COPD, CHF , HTN, HLD, hyperthyroidism, and DVT recently discharged from [facility] in which he was intubated for pneumonia. Admitted with lethargy, respiratory distress, required sedation and intubation, was in ICU, now on telemetry. Intubated on 07/12. Extubated 07/14. Selected Entries 07/15/18 07/15/18 07/15/18 04:00 09:51 10:29 Breakfast NPO Supper Temperature 97.7 F 99.8 F H 07/15/18 07/15/18 07/15/18 14:00 18:04 21:43 Breakfast Supper 100% Temperature 98.4 F 97.3 F L 07/15/18 07/16/18 07/16/18 22:00 05:18 09:39 Breakfast 100% Supper Temperature 98.6 F 98.1 F 07/16/18 07/16/18 07/16/18 10:00 14:00 18:22 Breakfast Supper Temperature 97.4 F L 97.3 F L 97.8 F 07/16/18 07/16/18 07/17/18 19:17 21:00 02:00 Breakfast Supper 100% Temperature 98 F 97.8 F 07/17/18 07/17/18 07/17/18 06:00 10:00 11:54 Breakfast 75% Supper Temperature 98 F 97.7 F 07/17/18 07/17/18 07/17/18 14:00 18:00 21:00 Breakfast Supper Temperature 97.8 F 97.8 F 98.1 F 07/18/18 07/18/18 07/18/18 02:00 06:00 10:00 Breakfast Supper Temperature 97.9 F 97.4 F L 98.9 F Laboratory Tests 07/16/18 07/18/18 07:40 06:30 WBC 8.4 9.3 Pt on Reg diet/thin liquids Pt reports ENT attended this morning. Report pending. Pt reports change in voice after first intubation. He believes he has been intubated 4 times. He reports Odynophagia/burning, difficulty swallowing, but denies food sticking or coughing with PO intake. Pt known to me from 2016 evaluation, after intubation x 1 week, with overt signs of aspiration initially. Pt was too large for fluoroscopy equipment for MBS. History Source: Patient Limitations to Obtaining History: No Limitations - Past Medical History Cardiovascular: Yes: CHF, Deep Vein Thrombosis, HTN, Hyperlipdemia, Other ( chronic peripheral edema) Pulmonary: Yes: Asthma, COPD, O2 Dependent (3L), Pneumonia, Sleep Apnea, Other ( BONY on bipap at night) Gastrointestinal: Yes: GI Bleed, Other (recurrent cellulitis of pannus. hernia per pt) Heme/Onc: Yes: Anemia, Hypercoaguable State (DVT RUE) Psych: Yes: Addictions Musculoskeletal: Yes: Chronic low back pain, Other (bilateral LE chronic edema and weakness) Endocrine: Yes: Hyperthyroidism, Other (morbid obesity thyroid goiter) Dermatology: Yes: Cellulitis, Other (chronic bilateral venostasis) - Past Surgical History Past Surgical History: Yes: None - Smoking History Smoking history: Former smoker Have you smoked in the past 12 months: Yes Aproximately how many cigarettes per day: 3 If you are a former smoker, when did you quit?: 2016 (20+ pack year hx prior) - Alcohol/Substance Use Hx Alcohol Use: No History of Substance Use: reports: Cocaine - Social History ADL: Family Assistance (Mother moved in for some assistance) History of Recent Travel: No History - Admission Reason For Visit: CHRONIC RESPIRATORY FAILURE WITH HYPOXIA AND HYPER - Diagnostics X-ray: Report Reviewed - General Mental Status: Alert and Oriented, Awake and Alert, Able to Follow Commands Attention: Intact Ability to Follow Directions: Excellent Head/Neck Control: Fair - Hearing Hearing: Functional With Patient: No Speech Evaluation - Communication Primary Language: EQUATORIAL GUINEAN Communication: Yes: Within Normal Limits Oral Expression Ability: Yes: Mild Impairment - Speech Production Apraxia: No Able to Make Needs Known: Yes: Mildly Impaired Intelligibility: Yes: Mildly Impaired - Speech Characteristics Voice Loudness: Normal Voice Pitch: Yes: Normal Voice Phonatory-based Quality: Yes: Vocal Wetness Speech Clarity: < 75% Nasal Resonance: Normal Articulation: Yes: Imprecise Rate of Speech: Intact Voice, Other Observations: Yes: Throat Clearing, Progressively Weak Voice - Language/Auditory Comprehension Follows: Yes: 2 Stage Simple Commands Observation: Comprehends Conversational Speech: Yes - Language/Verbal Expression Able to Respond to Simple Queries: Yes: WNL Able to Communicate Wants and Needs: Yes: WNL Functional Communication Status: Yes: WNL - 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 Memory: Yes: WNL Short Term Memory: Yes: WNL - Swallow Evaluation/Bedside Assessment Current Nutritional Intake: Regular, Thin Liquids Dentition: Yes: Adequate Facial Symmetry at Rest: Symmetrical Facial Symmetry on Retraction: Symmetrical Against Resistance Opening: Normal Against Resistance Closing: Normal Pucker Lips: Normal Smile: Normal Lingual Movement: Normal Lingual Speed of Movement: Normal Lingual Movement Strgth Against Opposition: Normal Lingual Movement Characteristics: Normal Velopharyngeal Movement: Normal Laryngeal Movement: Able to Palpate Rate of Intake: WFL Labial Seal: WFL Chewing: WFL Oral Prep Time: WFL A-P Transit: WFL Pocketing: None Timing of Swallow: Delayed Odynophagia: Pharyngeal Coughing/Throat Clear: No Change in Voice: No Recommendations - Speech Evaluation, Impression/Plan Impression: Vocal wetness without cough, throat clearing with po trials. Pending ENT results. Denies food sticking but burning/odynophagia.Pt is too large for fluoro/MBS. FEES not available but reportedly scoped by ENT. Pt refusing diet downgrade. - Dysphagia Impressions/Plan Dysphagia Impressions: Ongoing Evaluation, Suspect Aspiration (intermittent? stasis?) *Silent aspiration: cannot be R/O at bedside Dysphagia Treatment Plan: Chin Tuck/Down, Clear Pocket Food, Safe Rate, 1/2 tsp. at a time, Elevate HOB during feed
--- NOTE | 2018-07-18 11:55 | PN ---
Progress Note (short form) - Note Progress Note: extubated alert notes throat discomfort unchanged but is eating food seen by ENT, awaiting evaluation Vital Signs Period Temp Pulse Resp BP Sys/Woodall Pulse Ox Last 24 Hr 97.4 F-98.9 F 87-98 16-20 114-161/72-92 98-100 aty-ntt-[id number] HS lungs clear abd soft,nt ext venous stasis changes influenza negative CBC, BMP 07/18/18 06:30 07/18/18 06:30 Microbiology 07/13/18 07:15 Blood - Peripheral Venous Blood Culture - Final NO GROWTH AFTER 5 DAYS INCUBATION 07/13/18 07:00 Blood - Peripheral Venous Blood Culture - Final NO GROWTH AFTER 5 DAYS INCUBATION 07/13/18 16:30 Sputum - Endotrachea Suction/Ventilator Gram Stain - Final 07/13/18 16:30 Sputum - Endotrachea Suction/Ventilator Sputum Culture - Final S Aureus 07/12/18 12:15 Urine For Antigen Detection Legionella Antigen - Final 07/12/18 12:15 Urine For Antigen Detection Streptococcus pneumoniae Antigen (M - Final vanco trough 15.9 cxray unchanged Current Medications Acetaminophen (Ofirmev Injection -) 1,000 mg IVPB Q6H PRN PRN Reason: FEVER Dexamethasone Sodium Phosphate (Decadron Injection -) 10 mg IVPUSH Q8H-IV [facility] Last Admin: 07/18/18 10:34 Dose: 10 mg Furosemide (Lasix -) 60 mg PO BIDLASIX [facility] Last Admin: 07/18/18 05:38 Dose: 60 mg Piperacillin Sod/Tazobactam (Sod 4.5 gm/ Dextrose) 100 mls @ 200 mls/hr IVPB Q8H-IV [facility] Last Admin: 07/18/18 10:33 Dose: 200 mls/hr Vancomycin HCl 1,250 mg/ (Dextrose) 250 mls @ 166.667 mls/hr IVPB BID [facility]; Protocol Last Admin: 07/17/18 22:04 Dose: 166.667 mls/hr Methimazole (Tapazole -) 10 mg PO DAILY [facility] Last Admin: 07/18/18 10:34 Dose: 10 mg Nystatin (Nystatin Oral Suspension -) 500,000 units PO Q6HPO [facility] Last Admin: 07/18/18 05:41 Dose: 500,000 units Pantoprazole Sodium (Protonix -) 40 mg PO BID [facility] Last Admin: 07/18/18 10:34 Dose: 40 mg Potassium Chloride (Potassium Chloride Oral Liquid) 40 meq PO BID [facility] Last Admin: 07/18/18 10:34 Dose: 40 meq Rivaroxaban (Xarelto -) 20 mg PO DAILY [facility] Last Admin: 07/18/18 10:34 Dose: 20 mg a/p hypercapneic respiratory failure-extubated cannot r/o pneumonia ?aspiration, healthcare associated morbid obesity-overall difficult physical exam and imaging due to patient's size sputum culture MRSA day #6 antibiotics-vanco/zosyn throat pain- ?secondary to ET tube awaiting ENT evaluation contact isolation MRSA Problem List - Problems (1) Acute on chronic respiratory failure with hypoxia and hypercapnia Code(s): J96.21 - ACUTE AND CHRONIC RESPIRATORY FAILURE WITH HYPOXIA; J96.22 - ACUTE AND CHRONIC RESPIRATORY FAILURE WITH HYPERCAPNIA (2) Fever Code(s): R50.9 - FEVER, UNSPECIFIED (3) Pneumonia Code(s): J18.9 - PNEUMONIA, UNSPECIFIED ORGANISM (4) Morbid obesity with BMI of 50.0-59.9, adult Code(s): Z68.43 - BODY MASS INDEX (BMI) 50-59.9, ADULT
--- NOTE | 2018-07-18 12:31 | PN ---
Progress Note (short form) - Note Progress Note: NAD on NC O2. Still with some hoarseness of voice and discomfort on swallowing solids. Less pooling of secretions. Used NIPPV overnight. No report noted from ENT evaluation this AM. Intake & Output 07/15/18 07/16/18 07/17/18 07/18/18 23:59 23:59 23:59 23:59 Intake Total 1330 2070 2060 250 Output Total 1900 1900 1000 Balance -511 596 8218 250 Weight 348 lb 8 oz 347 lb 9.6 oz 211 lb 9.6 oz Last Vital Signs Temp Pulse Resp BP Pulse Ox 98.9 F 96 H 20 114/73 98 07/18/18 10:00 07/18/18 10:00 07/18/18 10:00 07/18/18 10:00 07/18/18 07:37 Active Medications Acetaminophen (Ofirmev Injection -) 1,000 mg IVPB Q6H PRN PRN Reason: FEVER Dexamethasone Sodium Phosphate (Decadron Injection -) 10 mg IVPUSH Q8H-IV PALLAVI Last Admin: 07/18/18 10:34 Dose: 10 mg Furosemide (Lasix -) 60 mg PO BIDLASIX [facility] Last Admin: 07/18/18 05:38 Dose: 60 mg Piperacillin Sod/Tazobactam (Sod 4.5 gm/ Dextrose) 100 mls @ 200 mls/hr IVPB Q8H-IV PALL[facility]I Last Admin: 07/18/18 10:33 Dose: 200 mls/hr Vancomycin HCl 1,250 mg/ (Dextrose) 250 mls @ 166.667 mls/hr IVPB BID [facility]; Protocol Last Admin: 07/17/18 22:04 Dose: 166.667 mls/hr Methimazole (Tapazole -) 10 mg PO DAILY [facility] Last Admin: 07/18/18 10:34 Dose: 10 mg Nystatin (Nystatin Oral Suspension -) 500,000 units PO Q6HPO [facility] Last Admin: 07/18/18 05:41 Dose: 500,000 units Pantoprazole Sodium (Protonix -) 40 mg PO BID [facility] Last Admin: 07/18/18 10:34 Dose: 40 mg Potassium Chloride (Potassium Chloride Oral Liquid) 40 meq PO BID [facility] Last Admin: 07/18/18 10:34 Dose: 40 meq Rivaroxaban (Xarelto -) 20 mg PO DAILY [facility] Last Admin: 07/18/18 10:34 Dose: 20 mg Gen: Awake and alert on NC O2 Heart: RRR Lung: distant breath sounds, no active wheezing Abd: soft, nontender, obese Ext: no edema Laboratory Results - last 24 hr 07/18/18 07/18/18 07/18/18 06:30 06:30 08:48 WBC 9.3 RBC 4.55 Hgb 12.9 Hct 41.5 MCV 91.1 MCH 28.3 MCHC 31.1 L RDW 15.1 Plt Count 195 D MPV 7.5 D Sodium 135 L Potassium 4.5 Chloride 87 L Carbon Dioxide 44 H Anion Gap 4 L BUN 19 H Creatinine 0.8 Creat Clearance w eGFR 103.62 Random Glucose 164 H Calcium 8.6 Total Bilirubin 0.6 AST 15 ALT 37 Alkaline Phosphatase 94 Total Protein 6.3 L Albumin 3.2 L Vancomycin Pre-Dose 15.9 L ASSESSMENT AND PLAN: Acute on Chronic Hypoxic and Hypercapneic Respiratory Failure Acute COPD Exacerbation LV Diastolic Dysfunction r/o Pneumonia Morbid Obesity Severe BONY/OHS (RDI 156 events per hour: titrated to BIPAP: ) HTN h/o DVT Upper Airway symptoms likely related to intubation - Follow ENT evaluation - Decadron Q8 - Cautious PO intake - inhaled bronchodilators - O2 to keep Spo2 >90% - Empiric antibiotics - Lasix - monitor urine output, creatinine - NC O2 as tolerated and NIPPV PRN & QHS - continue anticoagulation Dr Arellano
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
[2018-07-18] MEDS: VANCOMYCIN HCL 1,250 MG in DEXTROSE 5%-WATER - 250 ML IVPB SCH ×2 (13:32→22:39)
--- NOTE | 2018-07-18 13:43 | CON.ENT ---
Consult Consult Specialty:: otolaryngology Referred by:: Dr. Hurd Reason for Consultation:: dysphagia - History of Present Illness Chief Complaint: hurts to swallow History of Present Illness: 47M morbidly obese with multiple medical comorbidities including CHF, severe BONY , DVT was admitted from [facility] with hyperkalemia and was intubated in the ER for hypercapnea with altered mental status. Anesthesiology intubation note reports first attempt failed and the second succeeded with a Grade 4 view. Cared for in the ICU. An orogastric/nasogastric tube was placed. He was extubated on 07/14 and had difficulties with his PO intake -- hurt to swallow. No acute voice changes. He is on BIPAP overnight. Currently oxygen nasal canula. Nursing notes he has finished his dinner for the last two nights. Patient has been unable to complete MBS because of his size. Does not cough when eating. - Past Medical History Cardio/Vascular: Yes: CHF, Deep Vein Thrombosis, HTN, Hyperlipdemia, Other ( chronic peripheral edema) Pulmonary: Yes: Asthma, COPD, O2 Dependent (3L), Pneumonia, Sleep Apnea, Other ( BONY on bipap at night) Gastrointestinal: Yes: GI Bleed, Other (recurrent cellulitis of pannus. hernia per pt) Psych: Yes: Addictions Musculoskeletal: Yes: Chronic low back pain, Other (bilateral LE chronic edema and weakness) Endocrine: Yes: Hyperthyroidism, Other (morbid obesity thyroid goiter) Dermatology: Yes: Cellulitis, Other (chronic bilateral venostasis) Additional Medical History: BONY, morbid obesity, RUEXT DVT - Past Surgical History Past Surgical History: Yes: None - Alcohol/Substance Use Hx Alcohol Use: No History of Substance Use: reports: Cocaine - Smoking History Smoking history: Former smoker Have you smoked in the past 12 months: Yes Aproximately how many cigarettes per day: 3 If you are a former smoker, when did you quit?: 2015 (20+ pack year hx prior) - Social History Usual Living Arrangement: Alone ADL: Family Assistance (Mother moved in for some assistance) History of Recent Travel: No Home Medications - Allergies Allergies/Adverse Reactions: Allergies Allergy/AdvReac Type Severity Reaction Status Date / Time aspirin Allergy Verified 10/12/17 11:49 milk AdvReac Verified 10/12/17 11:49 mushroom Allergy Unknown Uncoded 10/12/17 11:49 TURKEY Allergy Uncoded 10/12/17 11:49 - Home Medications Home Medications: Ambulatory Orders Albuterol Sulfate Inhaler - [Ventolin HFA Inhaler -] 2 inh PO Q4H 05/10/15 Arformoterol Tartrate [Brovana -] 1 neb NEB BID 05/10/15 Ergocalciferol [Vitamin D2] 50,000 unit PO WEEKLY 05/10/15 Furosemide [Lasix -] 60 mg PO BID 05/10/15 Methimazole 10 mg PO DAILY 05/10/15 Pantoprazole Sodium [Protonix -] 20 mg PO DAILY 05/10/15 Rivaroxaban [Xarelto -] 20 mg PO DAILY 05/10/15 Vitamin B Complex 1 each PO DAILY 05/10/15 Timolol 0.5% [Timoptic 0.5%] 1 drop OU DAILY drops 05/15/15 Atorvastatin Ca [Lipitor] 10 mg PO DAILY 09/06/15 Multivitamin [Poly-Vitamin] 1 each PO DAILY 09/06/15 Albuterol 2.5/Ipratropium 0.5 [Duoneb -] 1 amp NEB QIDR amp 05/10/16 Diltiazem Cd [Cardizem Cd -] 120 mg PO DAILY cap.cd.24h 05/10/16 Docusate Sodium [Colace -] 300 mg PO HS capsule 10/20/17 Dorzolamide HCl [Trusopt 2% -] 1 drop OU BID drops 10/20/17 Polyethylene Glycol 3350 [Miralax 119 gm Btl -] 17 gm PO DAILY bottle 10/20/17 predniSONE [Deltasone -] See Taper PO DAILY #39 tablet 10/20/17 Family Disease History - Family Disease History Family Disease History: Heart Disease: Mother (PPM in her 60s (after fainting)) Physical Exam-ENT Vital Signs: Vital Signs Temperature 98.9 F 07/18/18 10:00 Pulse Rate 96 H 07/18/18 10:00 Respiratory Rate 20 07/18/18 10:00 Blood Pressure 114/73 07/18/18 10:00 O2 Sat by Pulse Oximetry (%) 98 07/18/18 07:37 Constitutional: Yes: Well Nourished, No Distress, Other (Morbidly obese, laying with HOB 10 degrees. Oxygen via n/c. no stridor/stertor. Slightly hoarse voice.) Head: Yes: WNL Face: Yes: WNL Eyes: Yes: WNL Nose: Yes: Other (n/c prongs. clear to ant rhinoscopy) Oral/Pharynx: Yes: Other (grossly wnl. No overt masses/lesions. +Macroglossia. Post o/p clear grossly clear though limited by his positioning and tongue.) Outer Ear: Yes: WNL Ear Canal: Yes: Cerumen Neck: Yes: Other (Huge pannus/adiposity. Limited palpation of neck structures.) Neurological: Yes: Other (CN3-7,11,12 intact, symmetrical) Imaging - Results Other: Other (Flexible Fiberoptic Laryngoscopy: Explained r/b/l/a and pt consents to endoscopy. Attempted twice but very limited examination. Exam findings severely limited by positioning, habitus, anatomy. Pt constricting pharynx, dry stranding secretions both limit view.) Problem List - Problems (1) Difficulty swallowing Assessment/Plan: Dysphagia s/p extubation few days ago, slowly improving. - FFL very limited given habitus, positioning, exam findings. Tried to raise HOB more upright but this was uncomfortable for him. These findings are mostly likely his normal anatomy combined with positioning and edema recent airway instrumentation. Do not suspect any sort of allergic reaction/angioedema. Continue to observe airway clinically with supportive measures as needed. - The intubation report notes one failed intubation attempt and then a Grade 4 view with the second, successful intubation. In cases with a Grade 4 view, the tube is basically inserted blindly as the larynx is not visible. Given the urgency of the situation in the ER, it is very likely that he suffered a traumatic intubation with some degree of soft tissue injury to the tongue base, epiglottis, and/or hypopharynx. He also had a OG/NG tube placed which also likely contributed to this. - I advise ongoing supportive measures with steroids as able, head of bed elevation. Anticipate his swallowin will return to baseline. He is fortunately now able to finish his meals. I'd like to re-evaluate him when he is out of the hospital in roughly four weeks for a repeat laryngoscopy in my office. I have explained this to the patient who seems fixated on repeatedly asking me how old I am. - Would consider imaging if the symptoms persist, however recommend against doing this now as radiographic assessments of the throat usually dramatically over-call severity. - Further care per primary team - Adv clarification on his weight. Previous weights were ~350 lbs, though the most recent was 211 lbs. I suspect it is closer to the former. Code(s): R13.10 - DYSPHAGIA, UNSPECIFIED (2) Sleep apnea Assessment/Plan: Ongoing use of nocturnal positive pressure Code(s): G47.30 - SLEEP APNEA, UNSPECIFIED
[2018-07-18] MEDS ORDERED: PT OWN MED DRAWER 7, Y5N ONE (22:17)
[2018-07-19] MEDS ORDERED: DEXTROSE 5%-WATER 100 ML IVPB ONE ×3 (01:30→19:14)
[2018-07-19] MEDS ORDERED: PIPERACILLIN/TAZOBACTAM 4.5 GM VIAL IVPB ONE ×3 (01:30→19:13)
[2018-07-19] MEDS: DEXAMETHASONE SOD PHOSPHATE 10 MG/1 ML VIAL IVPUSH SCH ×3 (02:24→19:15)
[2018-07-19] MEDS: PIPERACILLIN/TAZOB 4.5 GM 4.5 GM in DEXTROSE 5%-WATER 100 ML IVPB SCH ×3 (02:24→19:15)
[2018-07-19] MEDS: NYSTATIN 500,000 UNITS/5 ML SUSPENSION PO SCH ×4 (02:24→19:14)
[2018-07-19] MEDS: FUROSEMIDE 40 MG TABLET (FP) PO SCH ×2 (05:44→14:54)
--- NOTE | 2018-07-19 09:36 | PN ---
Progress Note, Physician - Current Medication List Current Medications: Active Medications Acetaminophen (Ofirmev Injection -) 1,000 mg IVPB Q6H PRN PRN Reason: FEVER Dexamethasone Sodium Phosphate (Decadron Injection -) 10 mg IVPUSH Q8H-IV [facility] Last Admin: 07/19/18 02:24 Dose: 10 mg Furosemide (Lasix -) 60 mg PO BIDLASIX [facility] Last Admin: 07/19/18 05:44 Dose: 60 mg Piperacillin Sod/Tazobactam (Sod 4.5 gm/ Dextrose) 100 mls @ 200 mls/hr IVPB Q8H-IV [facility] Last Admin: 07/19/18 02:24 Dose: 200 mls/hr Vancomycin HCl 1,250 mg/ (Dextrose) 250 mls @ 166.667 mls/hr IVPB BID [facility]; Protocol Last Admin: 07/18/18 22:39 Dose: 166.667 mls/hr Methimazole (Tapazole -) 10 mg PO DAILY [facility] Last Admin: 07/18/18 10:34 Dose: 10 mg Nystatin (Nystatin Oral Suspension -) 500,000 units PO Q6HPO [facility] Last Admin: 07/19/18 05:44 Dose: 500,000 units Pantoprazole Sodium (Protonix -) 40 mg PO BID [facility] Last Admin: 07/18/18 22:39 Dose: 40 mg Potassium Chloride (Potassium Chloride Oral Liquid) 40 meq PO BID [facility] Last Admin: 07/18/18 22:48 Dose: Not Given Rivaroxaban (Xarelto -) 20 mg PO DAILY [facility] Last Admin: 07/18/18 10:34 Dose: 20 mg - Objective Vital Signs: Vital Signs Temperature 98.4 F 07/19/18 05:00 Pulse Rate 91 H 07/19/18 05:00 Respiratory Rate 20 07/19/18 05:00 Blood Pressure 140/86 07/19/18 05:00 O2 Sat by Pulse Oximetry (%) 98 07/19/18 02:55 Cardiovascular: Yes: S1, S2 Respiratory: Yes: On BiPap Gastrointestinal: Yes: Normal Bowel Sounds, Soft Labs: CBC, BMP 07/18/18 06:30 07/18/18 06:30 INR, PTT INR 1.46 (0.83-1.09) H 07/13/18 07:00 Assessment/Plan - Problems (1) Acute respiratory failure Assessment/Plan: s/p extubation on decadron NIPPV Code(s): J96.00 - ACUTE RESPIRATORY FAILURE, UNSP W HYPOXIA OR HYPERCAPNIA (2) Tachycardia Assessment/Plan: lytes repleted cardiac monitoring Code(s): R00.0 - TACHYCARDIA, UNSPECIFIED (3) Seizure Assessment/Plan: no more questionable seizure activity Code(s): R56.9 - UNSPECIFIED CONVULSIONS (4) Fever Assessment/Plan: influenza negative possible pna give nmorbid obese cannot have MBS to r/o silent aspiration MRSA in sputum contact isolation zosyn/vancomycin Microbiology 07/13/18 16:30 Sputum - Endotrachea Suction/Ventilator Gram Stain - Final 07/13/18 16:30 Sputum - Endotrachea Suction/Ventilator Sputum Culture - Final S Aureus 07/13/18 07:15 Blood - Peripheral Venous Blood Culture - Final NO GROWTH AFTER 5 DAYS INCUBATION 07/13/18 07:00 Blood - Peripheral Venous Blood Culture - Final NO GROWTH AFTER 5 DAYS INCUBATION Code(s): R50.9 - FEVER, UNSPECIFIED (5) DVT (deep venous thrombosis) Assessment/Plan: on xarelto Code(s): I82.409 - ACUTE EMBOLISM AND THOMBOS UNSP DEEP VN UNSP LOWER EXTREMITY (6) Difficulty swallowing Assessment/Plan: swallow eval ENT consult noted iv decadron nystatin PPI Code(s): R13.10 - DYSPHAGIA, UNSPECIFIED
--- NOTE | 2018-07-19 10:07 | PN ---
Progress Note, Physician History of Present Illness: pulmonary awake,on vm,less dyspneic - Current Medication List Current Medications: Active Medications Acetaminophen (Ofirmev Injection -) 1,000 mg IVPB Q6H PRN PRN Reason: FEVER Dexamethasone Sodium Phosphate (Decadron Injection -) 10 mg IVPUSH Q8H-IV [facility] Last Admin: 07/19/18 02:24 Dose: 10 mg Furosemide (Lasix -) 60 mg PO BIDLASIX [facility] Last Admin: 07/19/18 05:44 Dose: 60 mg Piperacillin Sod/Tazobactam (Sod 4.5 gm/ Dextrose) 100 mls @ 200 mls/hr IVPB Q8H-IV [facility] Last Admin: 07/19/18 02:24 Dose: 200 mls/hr Vancomycin HCl 1,250 mg/ (Dextrose) 250 mls @ 166.667 mls/hr IVPB BID [facility]; Protocol Last Admin: 07/18/18 22:39 Dose: 166.667 mls/hr Methimazole (Tapazole -) 10 mg PO DAILY [facility] Last Admin: 07/18/18 10:34 Dose: 10 mg Nystatin (Nystatin Oral Suspension -) 500,000 units PO Q6HPO [facility] Last Admin: 07/19/18 05:44 Dose: 500,000 units Pantoprazole Sodium (Protonix -) 40 mg PO BID [facility] Last Admin: 07/18/18 22:39 Dose: 40 mg Potassium Chloride (Potassium Chloride Oral Liquid) 40 meq PO BID [facility] Last Admin: 07/18/18 22:48 Dose: Not Given Rivaroxaban (Xarelto -) 20 mg PO DAILY [facility] Last Admin: 07/18/18 10:34 Dose: 20 mg - Objective Vital Signs: Vital Signs Temperature 98.4 F 07/19/18 05:00 Pulse Rate 94 H 07/19/18 09:00 Respiratory Rate 20 07/19/18 09:00 Blood Pressure 119/75 07/19/18 09:00 O2 Sat by Pulse Oximetry (%) 98 07/19/18 02:55 Constitutional: Yes: Calm, Obese (morbidly obese) Eyes: Yes: WNL HENT: Yes: WNL Neck: Yes: WNL Cardiovascular: Yes: Regular Rate and Rhythm, S1, S2 Respiratory: Yes: Diminished Gastrointestinal: Yes: Normal Bowel Sounds, Soft Extremities: Yes: WNL Edema: Yes Labs: CBC, BMP 07/18/18 06:30 INR, PTT INR 1.46 (0.83-1.09) H 07/13/18 07:00 Problem List - Problems (1) Acute on chronic respiratory failure with hypoxia and hypercapnia Code(s): J96.21 - ACUTE AND CHRONIC RESPIRATORY FAILURE WITH HYPOXIA; J96.22 - ACUTE AND CHRONIC RESPIRATORY FAILURE WITH HYPERCAPNIA (2) Acute respiratory failure Code(s): J96.00 - ACUTE RESPIRATORY FAILURE, UNSP W HYPOXIA OR HYPERCAPNIA (3) DVT (deep venous thrombosis) Code(s): I82.409 - ACUTE EMBOLISM AND THOMBOS UNSP DEEP VN UNSP LOWER EXTREMITY (4) Difficulty swallowing Code(s): R13.10 - DYSPHAGIA, UNSPECIFIED (5) Fever Code(s): R50.9 - FEVER, UNSPECIFIED (6) Bilateral lower extremity edema Code(s): R60.0 - LOCALIZED EDEMA (7) HTN (hypertension) Code(s): I10 - ESSENTIAL (PRIMARY) HYPERTENSION (8) Hx of deep venous thrombosis Code(s): Z86.718 - PERSONAL HISTORY OF OTHER VENOUS THROMBOSIS AND EMBOLISM (9) Moderate to severe pulmonary hypertension Code(s): I27.2 - OTHER SECONDARY PULMONARY HYPERTENSION * DO NOT USE * (10) Morbid (severe) obesity due to excess calories Code(s): E66.01 - MORBID (SEVERE) OBESITY DUE TO EXCESS CALORIES (11) Obesity hypoventilation syndrome Code(s): E66.2 - MORBID (SEVERE) OBESITY WITH ALVEOLAR HYPOVENTILATION (12) Pulmonary hypertension Code(s): I27.2 - OTHER SECONDARY PULMONARY HYPERTENSION * DO NOT USE * (13) Sleep apnea Code(s): G47.30 - SLEEP APNEA, UNSPECIFIED Assessment/Plan ASSESSMENT AND PLAN: Acute on Chronic Hypoxic and Hypercapneic Respiratory Failure Acute COPD Exacerbation LV Diastolic Dysfunction r/o Pneumonia Morbid Obesity Severe BONY/OHS (RDI 156 events per hour: titrated to BIPAP: ) HTN h/o DVT Upper Airway symptoms likely related to intubation - - Decadron Q8 - Cautious PO intake - inhaled bronchodilators - O2 to keep Spo2 >90% - antibiotics - Lasix - monitor urine output, creatinine - NC O2 as tolerated and NIPPV PRN & QHS - anticoagulation
--- NOTE | 2018-07-19 12:00 | PN ---
Progress Note, Physician Chief Complaint: Pt A&Ox3; on nasal cannula. No chest pain or dyspnea. History of Present Illness: Patient is a 47 y/o black male with a history of BONY, morbid obesity, COPD(on 3L O2), diastolic CHF, anemia, UGI bleeding, HTN, DM (?diet-controlled), hyperthyroidism, glaucoma, DVT and kidney stones who presents for "high potassium". Patient reports he was recently at [facility] where he was intubated for a pneumonia. He was transferred to [facility] for physical therapy. While there they took his labs and found that his potassium was high. He reports feeling fatigued. He denies fever, chills, chest pain, shortness of breath, nausea, vomiting and headache. - Current Medication List Current Medications: Active Medications Acetaminophen (Ofirmev Injection -) 1,000 mg IVPB Q6H PRN PRN Reason: FEVER Dexamethasone Sodium Phosphate (Decadron Injection -) 10 mg IVPUSH Q8H-IV [facility] Last Admin: 07/19/18 02:24 Dose: 10 mg Furosemide (Lasix -) 60 mg PO BIDLASIX [facility] Last Admin: 07/19/18 05:44 Dose: 60 mg Piperacillin Sod/Tazobactam (Sod 4.5 gm/ Dextrose) 100 mls @ 200 mls/hr IVPB Q8H-IV [facility] Last Admin: 07/19/18 02:24 Dose: 200 mls/hr Vancomycin HCl 1,250 mg/ (Dextrose) 250 mls @ 166.667 mls/hr IVPB BID [facility]; Protocol Last Admin: 07/18/18 22:39 Dose: 166.667 mls/hr Methimazole (Tapazole -) 10 mg PO DAILY [facility] Last Admin: 07/18/18 10:34 Dose: 10 mg Nystatin (Nystatin Oral Suspension -) 500,000 units PO Q6HPO [facility] Last Admin: 07/19/18 05:44 Dose: 500,000 units Pantoprazole Sodium (Protonix -) 40 mg PO BID [facility] Last Admin: 07/18/18 22:39 Dose: 40 mg Potassium Chloride (Potassium Chloride Oral Liquid) 40 meq PO BID [facility] Last Admin: 07/18/18 22:48 Dose: Not Given Rivaroxaban (Xarelto -) 20 mg PO DAILY [facility] Last Admin: 07/18/18 10:34 Dose: 20 mg - Objective Vital Signs: Vital Signs Temperature 98.4 F 07/19/18 05:00 Pulse Rate 94 H 07/19/18 09:00 Respiratory Rate 20 07/19/18 09:00 Blood Pressure 119/75 07/19/18 09:00 O2 Sat by Pulse Oximetry (%) 99 07/19/18 08:50 Constitutional: Yes: Calm Cardiovascular: Yes: S1, S2, S4 Gastrointestinal: Yes: Abdomen, Obese ...Rectal Exam: Yes: Deferred Genitourinary: No: Anuria Extremities: Yes: Cool, Other (indurated (chronically) bilateral LEs to mid- shins) Labs: CBC, BMP 07/18/18 06:30 07/18/18 06:30 INR, PTT INR 1.46 (0.83-1.09) H 07/13/18 07:00 Problem List - Problems (1) Acute on chronic respiratory failure with hypoxia and hypercapnia Assessment/Plan: Ccntinue bronchodilators, O2, and steroids per pulmnologist Code(s): J96.21 - ACUTE AND CHRONIC RESPIRATORY FAILURE WITH HYPOXIA; J96.22 - ACUTE AND CHRONIC RESPIRATORY FAILURE WITH HYPERCAPNIA (2) Fever Assessment/Plan: Afebrile On Zosyn and Vancomycin. Code(s): R50.9 - FEVER, UNSPECIFIED (3) Tachycardia Assessment/Plan: periods of sinus tachycardia with multiple factors responsible, including intermittent fever, anxiety, respirartory distress, obesity, sedentary state, BONY, hyperthyroidism, dehydration. Code(s): R00.0 - TACHYCARDIA, UNSPECIFIED (4) Acute on chronic diastolic CHF (congestive heart failure) Assessment/Plan: on furosemide CXR shows improvement of CHF changes. Start lisinopril 5 mg daily. Hold potassium. F/u BUN/Cr, Is and Os, daily weight, electrolytes. Code(s): I50.33 - ACUTE ON CHRONIC DIASTOLIC (CONGESTIVE) HEART FAILURE (5) Bilateral lower extremity edema Code(s): R60.0 - LOCALIZED EDEMA (6) COPD exacerbation Code(s): J44.1 - CHRONIC OBSTRUCTIVE PULMONARY DISEASE W (ACUTE) EXACERBATION (7) HTN (hypertension) Code(s): I10 - ESSENTIAL (PRIMARY) HYPERTENSION (8) Moderate to severe pulmonary hypertension Code(s): I27.2 - OTHER SECONDARY PULMONARY HYPERTENSION * DO NOT USE * (9) Morbid obesity Assessment/Plan: In the past, pt has spoken of undergoing gastric bypass surgery. He now speaks of planning to follow a healthier diet, with portion control as the means to losing weight. For dietary/nutrition consult. Code(s): E66.01 - MORBID (SEVERE) OBESITY DUE TO EXCESS CALORIES (10) Sleep apnea Code(s): G47.30 - SLEEP APNEA, UNSPECIFIED (11) DVT (deep venous thrombosis) Code(s): I82.409 - ACUTE EMBOLISM AND THOMBOS UNSP DEEP VN UNSP LOWER EXTREMITY (12) [place] cardiac risk >20% in next 10 years Code(s): Z91.89 - OTH PERSONAL RISK FACTORS, NOT ELSEWHERE CLASSIFIED (13) Hyperlipidemia Code(s): E78.5 - HYPERLIPIDEMIA, UNSPECIFIED
[2018-07-19] MEDS: METHIMAZOLE 10 MG TABLET (FP) PO SCH (12:05)
[2018-07-19] MEDS: PANTOPRAZOLE 40 MG TABLET (FP) PO SCH ×2 (12:06→23:00)
[2018-07-19] MEDS: RIVAROXABAN 20 MG TABLET PO SCH (12:06)
[2018-07-19] MEDS: VANCOMYCIN HCL 1,250 MG in DEXTROSE 5%-WATER - 250 ML IVPB SCH ×2 (14:52→23:00)
--- NOTE | 2018-07-19 17:30 | PN ---
Progress Note (short form) - Note Progress Note: NEUROLOGY PROGRESS: Events reviewed and discussed with staff. Consults from Pulmonary, ENT and ANNUAL CAMPAIGN MANAGER appreciated. Per records, pt extubated 07/14/18. Reporting sore throat and hoarse voice. Now tolerating PO. Sleeping well with BIPAP qhs. Found with MRSA sputum- remains on Zoysn. TSH 0.27 FT4 0.72 F T3 1.9 STACIA: Obese. Large areas of ecchymoses to forearms. On o2 via N/C. NEURO: Awake, alert, cooperative. Ox [facility]. May corrected to July 19, 2018. TRUMP. Full EOM and olson appreciated. Gag ok. No drift. Strong grasps. Reflexes reduced but symmetric. Feels pinch in all four's Impression: Toxic-Metabolic Encephalopathy due to chronic hypercapneia - improved with BIPAP support Suggest: Continue antibiotics, steriods and BIPAP support (at home) Encourage po intake Adjust methimazole rx as indicated for hyperthyroidism Nutrition consultation for weight loss/Bariatric surgery consultation Thank you very much, Ángel Acosta MD
--- NOTE | 2018-07-19 18:13 | PN ---
Progress Note (short form) - Note Progress Note: extubated alert notes throat discomfort slightly improved Vital Signs Period Temp Pulse Resp BP Sys/Woodall Pulse Ox Last 24 Hr 97.6 F-98.4 F 90-110 20-20 118-141/75-86 97-99 cor-rrr lungs decreased at bases abd soft,nt ext no edema CBC, BMP 07/18/18 06:30 07/18/18 06:30 Microbiology 07/13/18 07:15 Blood - Peripheral Venous Blood Culture - Final NO GROWTH AFTER 5 DAYS INCUBATION 07/13/18 07:00 Blood - Peripheral Venous Blood Culture - Final NO GROWTH AFTER 5 DAYS INCUBATION 07/13/18 16:30 Sputum - Endotrachea Suction/Ventilator Gram Stain - Final 07/13/18 16:30 Sputum - Endotrachea Suction/Ventilator Sputum Culture - Final S Aureus 07/12/18 12:15 Urine For Antigen Detection Legionella Antigen - Final 07/12/18 12:15 Urine For Antigen Detection Streptococcus pneumoniae Antigen (M - Final a/p hypercapneic respiratory failure-extubated cannot r/o pneumonia ?aspiration, healthcare associated morbid obesity-overall difficult physical exam and imaging due to patient's size sputum culture MRSA day #7antibiotics-vanco/zosyn-d/c antibiotics in am throat pain- ?secondary to ET tube, ent note reviewed contact isolation MRSA Problem List - Problems (1) Acute on chronic respiratory failure with hypoxia and hypercapnia Code(s): J96.21 - ACUTE AND CHRONIC RESPIRATORY FAILURE WITH HYPOXIA; J96.22 - ACUTE AND CHRONIC RESPIRATORY FAILURE WITH HYPERCAPNIA (2) Fever Code(s): R50.9 - FEVER, UNSPECIFIED (3) Pneumonia Code(s): J18.9 - PNEUMONIA, UNSPECIFIED ORGANISM (4) Morbid obesity with BMI of 50.0-59.9, adult Code(s): Z68.43 - BODY MASS INDEX (BMI) 50-59.9, ADULT
[2018-07-19] MEDS: POTASSIUM CHLORIDE ORAL LIQUID 20 MEQ/15 ML PO SCH ×2 (19:15→22:58)
[2018-07-20] MEDS ORDERED: PIPERACILLIN/TAZOBACTAM 4.5 GM VIAL IVPB ONE ×2 (02:05→10:54)
[2018-07-20] MEDS ORDERED: DEXTROSE 5%-WATER 100 ML IVPB ONE ×2 (02:05→10:55)
[2018-07-20] MEDS: PIPERACILLIN/TAZOB 4.5 GM 4.5 GM in DEXTROSE 5%-WATER 100 ML IVPB SCH ×2 (02:21→11:07)
[2018-07-20] MEDS: DEXAMETHASONE SOD PHOSPHATE 10 MG/1 ML VIAL IVPUSH SCH ×3 (02:21→17:34)
[2018-07-20] MEDS: NYSTATIN 500,000 UNITS/5 ML SUSPENSION PO SCH ×4 (06:49→17:34)
[2018-07-20] MEDS: FUROSEMIDE 40 MG TABLET (FP) PO SCH ×2 (06:50→13:50)
--- NOTE | 2018-07-20 09:42 | PN ---
Progress Note, Physician - Current Medication List Current Medications: Active Medications Acetaminophen (Ofirmev Injection -) 1,000 mg IVPB Q6H PRN PRN Reason: FEVER Dexamethasone Sodium Phosphate (Decadron Injection -) 10 mg IVPUSH Q8H-IV [facility] Last Admin: 07/20/18 02:21 Dose: 10 mg Furosemide (Lasix -) 60 mg PO BIDLASIX [facility] Last Admin: 07/20/18 06:50 Dose: 60 mg Piperacillin Sod/Tazobactam (Sod 4.5 gm/ Dextrose) 100 mls @ 200 mls/hr IVPB Q8H-IV [facility] Last Admin: 07/20/18 02:21 Dose: 200 mls/hr Vancomycin HCl 1,250 mg/ (Dextrose) 250 mls @ 166.667 mls/hr IVPB BID [facility]; Protocol Last Admin: 07/19/18 23:00 Dose: 166.667 mls/hr Lisinopril (Prinivil) 5 mg PO DAILY [facility] Methimazole (Tapazole -) 10 mg PO DAILY [facility] Last Admin: 07/19/18 12:05 Dose: 10 mg Nystatin (Nystatin Oral Suspension -) 500,000 units PO Q6HPO [facility] Last Admin: 07/20/18 06:49 Dose: Not Given Pantoprazole Sodium (Protonix -) 40 mg PO BID [facility] Last Admin: 07/19/18 23:00 Dose: 40 mg Rivaroxaban (Xarelto -) 20 mg PO DAILY [facility] Last Admin: 07/19/18 12:06 Dose: 20 mg - Objective Vital Signs: Vital Signs Temperature 98.7 F 07/20/18 05:00 Pulse Rate 81 07/20/18 05:00 Respiratory Rate 18 07/20/18 05:00 Blood Pressure 135/88 07/20/18 05:00 O2 Sat by Pulse Oximetry (%) 98 07/20/18 08:46 Cardiovascular: Yes: S1, S2 Respiratory: Yes: Diminished, On Nasal O2, SOB on Exertion Gastrointestinal: Yes: Normal Bowel Sounds, Soft Labs: CBC, BMP 07/18/18 06:30 07/18/18 06:30 INR, PTT INR 1.46 (0.83-1.09) H 07/13/18 07:00 Assessment/Plan - Problems (1) Acute respiratory failure Assessment/Plan: s/p extubation on decadron NIPPV Code(s): J96.00 - ACUTE RESPIRATORY FAILURE, UNSP W HYPOXIA OR HYPERCAPNIA (2) Tachycardia Assessment/Plan: lytes repleted cardiac monitoring Code(s): R00.0 - TACHYCARDIA, UNSPECIFIED (3) Seizure Assessment/Plan: no more questionable seizure activity Code(s): R56.9 - UNSPECIFIED CONVULSIONS (4) Fever Assessment/Plan: influenza negative possible pna give nmorbid obese cannot have MBS to r/o silent aspiration MRSA in sputum contact isolation zosyn/vancomycin Microbiology 07/13/18 16:30 Sputum - Endotrachea Suction/Ventilator Gram Stain - Final 07/13/18 16:30 Sputum - Endotrachea Suction/Ventilator Sputum Culture - Final S Aureus 07/13/18 07:15 Blood - Peripheral Venous Blood Culture - Final NO GROWTH AFTER 5 DAYS INCUBATION 07/13/18 07:00 Blood - Peripheral Venous Blood Culture - Final NO GROWTH AFTER 5 DAYS INCUBATION Code(s): R50.9 - FEVER, UNSPECIFIED (5) DVT (deep venous thrombosis) Assessment/Plan: on xarelto Code(s): I82.409 - ACUTE EMBOLISM AND THOMBOS UNSP DEEP VN UNSP LOWER EXTREMITY (6) Difficulty swallowing Assessment/Plan: swallow eval ENT consult noted iv decadron nystatin PPI Code(s): R13.10 - DYSPHAGIA, UNSPECIFIED
[2018-07-20] MEDS ORDERED: PT OWN MED DRAWER 7, Y5N ONE ×2 (09:45→21:18)
[2018-07-20] MEDS: METHIMAZOLE 10 MG TABLET (FP) PO SCH (09:50)
[2018-07-20] MEDS: VANCOMYCIN HCL 1,250 MG in DEXTROSE 5%-WATER - 250 ML IVPB SCH ×2 (09:50→21:37)
[2018-07-20] MEDS: LISINOPRIL 5 MG TABLET (FP) PO SCH (09:50)
[2018-07-20] MEDS: PANTOPRAZOLE 40 MG TABLET (FP) PO SCH ×2 (09:50→21:37)
[2018-07-20] MEDS: RIVAROXABAN 20 MG TABLET PO SCH (09:50)
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
--- NOTE | 2018-07-20 11:00 | PN ---
Progress Note, Physician History of Present Illness: PULMONARY AWAKE ON NASAL CANNULA,LESS DYSPNEIC,LESS THROAT DISCOMFORT - Current Medication List Current Medications: Active Medications Acetaminophen (Ofirmev Injection -) 1,000 mg IVPB Q6H PRN PRN Reason: FEVER Dexamethasone Sodium Phosphate (Decadron Injection -) 10 mg IVPUSH Q8H-IV [facility] Last Admin: 07/20/18 09:50 Dose: 10 mg Furosemide (Lasix -) 60 mg PO BIDLASIX [facility] Last Admin: 07/20/18 06:50 Dose: 60 mg Piperacillin Sod/Tazobactam (Sod 4.5 gm/ Dextrose) 100 mls @ 200 mls/hr IVPB Q8H-IV [facility] Last Admin: 07/20/18 02:21 Dose: 200 mls/hr Vancomycin HCl 1,250 mg/ (Dextrose) 250 mls @ 166.667 mls/hr IVPB BID [facility]; Protocol Last Admin: 07/20/18 09:50 Dose: 166.667 mls/hr Lisinopril (Prinivil) 5 mg PO DAILY [facility] Last Admin: 07/20/18 09:50 Dose: 5 mg Methimazole (Tapazole -) 10 mg PO DAILY [facility] Last Admin: 07/20/18 09:50 Dose: 10 mg Nystatin (Nystatin Oral Suspension -) 500,000 units PO Q6HPO [facility] Last Admin: 07/20/18 06:49 Dose: Not Given Pantoprazole Sodium (Protonix -) 40 mg PO BID [facility] Last Admin: 07/20/18 09:50 Dose: 40 mg Rivaroxaban (Xarelto -) 20 mg PO DAILY [facility] Last Admin: 07/20/18 09:50 Dose: 20 mg - Objective Vital Signs: Vital Signs Temperature 98.7 F 07/20/18 05:00 Pulse Rate 81 07/20/18 05:00 Respiratory Rate 18 07/20/18 05:00 Blood Pressure 135/88 07/20/18 05:00 O2 Sat by Pulse Oximetry (%) 98 07/20/18 08:46 Constitutional: Yes: Well Nourished, Calm, Obese (MORBIDLY OBESE) Eyes: Yes: WNL HENT: Yes: WNL Neck: Yes: WNL Cardiovascular: Yes: Regular Rate and Rhythm, S1, S2 Respiratory: Yes: Diminished Gastrointestinal: Yes: Normal Bowel Sounds, Soft, Abdomen, Obese Extremities: Yes: WNL Edema: Yes Labs: CBC, BMP 07/18/18 06:30 Problem List - Problems (1) Acute on chronic respiratory failure with hypoxia and hypercapnia Code(s): J96.21 - ACUTE AND CHRONIC RESPIRATORY FAILURE WITH HYPOXIA; J96.22 - ACUTE AND CHRONIC RESPIRATORY FAILURE WITH HYPERCAPNIA (2) Acute respiratory failure Code(s): J96.00 - ACUTE RESPIRATORY FAILURE, UNSP W HYPOXIA OR HYPERCAPNIA (3) DVT (deep venous thrombosis) Code(s): I82.409 - ACUTE EMBOLISM AND THOMBOS UNSP DEEP VN UNSP LOWER EXTREMITY (4) Difficulty swallowing Code(s): R13.10 - DYSPHAGIA, UNSPECIFIED (5) Fever Code(s): R50.9 - FEVER, UNSPECIFIED (6) Bilateral lower extremity edema Code(s): R60.0 - LOCALIZED EDEMA (7) HTN (hypertension) Code(s): I10 - ESSENTIAL (PRIMARY) HYPERTENSION (8) Hx of deep venous thrombosis Code(s): Z86.718 - PERSONAL HISTORY OF OTHER VENOUS THROMBOSIS AND EMBOLISM (9) Moderate to severe pulmonary hypertension Code(s): I27.2 - OTHER SECONDARY PULMONARY HYPERTENSION * DO NOT USE * (10) Morbid (severe) obesity due to excess calories Code(s): E66.01 - MORBID (SEVERE) OBESITY DUE TO EXCESS CALORIES (11) Obesity hypoventilation syndrome Code(s): E66.2 - MORBID (SEVERE) OBESITY WITH ALVEOLAR HYPOVENTILATION (12) Pulmonary hypertension Code(s): I27.2 - OTHER SECONDARY PULMONARY HYPERTENSION * DO NOT USE * (13) Sleep apnea Code(s): G47.30 - SLEEP APNEA, UNSPECIFIED Assessment/Plan ASSESSMENT AND PLAN: Acute on Chronic Hypoxic and Hypercapneic Respiratory Failure Acute COPD Exacerbation LV Diastolic Dysfunction r/o Pneumonia Morbid Obesity Severe BONY/OHS (RDI 156 events per hour: titrated to BIPAP: ) HTN h/o DVT Upper Airway symptoms likely related to intubation - - continue Decadron Q8 - Cautious PO intake - inhaled bronchodilators - O2 to keep Spo2 >90% - antibiotics - Lasix - monitor urine output, creatinine - NC O2 as tolerated and NIPPV PRN & QHS - anticoagulation DR COE
--- NOTE | 2018-07-20 11:03 | PN ---
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 Tolerating reg diet well, eating cheeseburgers, etc. Voice dysphonic. Pt was seen by ENT. MBS can not be done due to morbid obesity. No overt coughing while eating. Improving overall.
--- NOTE | 2018-07-20 12:11 | PN ---
Progress Note (short form) - Note Progress Note: extubated alert notes throat discomfort unchanged Vital Signs Period Temp Pulse Resp BP Sys/Woodall Pulse Ox Last 24 Hr 97.6 F-98.9 F 81-110 18-20 111-135/71-88 98-99 cor-rrr lungs clear, decreased bs at bases abd soft,nt ext venous stasis changes CBC, BMP 07/18/18 06:30 07/18/18 06:30 Microbiology 07/13/18 07:15 Blood - Peripheral Venous Blood Culture - Final NO GROWTH AFTER 5 DAYS INCUBATION 07/13/18 07:00 Blood - Peripheral Venous Blood Culture - Final NO GROWTH AFTER 5 DAYS INCUBATION 07/13/18 16:30 Sputum - Endotrachea Suction/Ventilator Gram Stain - Final 07/13/18 16:30 Sputum - Endotrachea Suction/Ventilator Sputum Culture - Final S Aureus 07/12/18 12:15 Urine For Antigen Detection Legionella Antigen - Final 07/12/18 12:15 Urine For Antigen Detection Streptococcus pneumoniae Antigen (M - Final a/p hypercapneic respiratory failure-extubated cannot r/o pneumonia ?aspiration, healthcare associated morbid obesity-overall difficult physical exam and imaging due to patient's size sputum culture MRSA day #8 antibiotics-vanco/zosyn-d/c zosyn today, d/c vancomycin in am throat pain- ?secondary to ET tube, ent note reviewed contact isolation MRSA Problem List - Problems (1) Acute on chronic respiratory failure with hypoxia and hypercapnia Code(s): J96.21 - ACUTE AND CHRONIC RESPIRATORY FAILURE WITH HYPOXIA; J96.22 - ACUTE AND CHRONIC RESPIRATORY FAILURE WITH HYPERCAPNIA (2) Fever Code(s): R50.9 - FEVER, UNSPECIFIED (3) Pneumonia Code(s): J18.9 - PNEUMONIA, UNSPECIFIED ORGANISM (4) Morbid obesity with BMI of 50.0-59.9, adult Code(s): Z68.43 - BODY MASS INDEX (BMI) 50-59.9, ADULT
[2018-07-20 15:40] VITALS: BMI 53.1
[2018-07-21] MEDS: DEXAMETHASONE SOD PHOSPHATE 10 MG/1 ML VIAL IVPUSH SCH ×3 (01:38→17:12)
[2018-07-21] MEDS: NYSTATIN 500,000 UNITS/5 ML SUSPENSION PO SCH ×4 (01:39→17:13)
[2018-07-21] MEDS: FUROSEMIDE 40 MG TABLET (FP) PO SCH ×2 (06:39→13:50)
[2018-07-21] MEDS: METHIMAZOLE 10 MG TABLET (FP) PO SCH (10:28)
[2018-07-21] MEDS: RIVAROXABAN 20 MG TABLET PO SCH (10:28)
[2018-07-21] MEDS: LISINOPRIL 5 MG TABLET (FP) PO SCH (10:28)
[2018-07-21] MEDS: PANTOPRAZOLE 40 MG TABLET (FP) PO SCH ×2 (10:28→21:42)
[2018-07-21] MEDS: VANCOMYCIN HCL 1,250 MG in DEXTROSE 5%-WATER - 250 ML IVPB SCH (10:29)
--- NOTE | 2018-07-21 13:04 | PN ---
Progress Note (short form) - Note Progress Note: NAD on NC O2. Still with some hoarseness of voice and discomfort on swallowing but better. No pooling of secretions. Intake & Output 07/18/18 07/19/18 07/20/18 07/21/18 23:59 23:59 23:59 23:59 Intake Total 370 1450 950 540 Output Total 100 900 Balance 270 550 950 540 Weight 339 lb Last Vital Signs Temp Pulse Resp BP Pulse Ox 97.7 F 97 H 20 107/66 100 07/21/18 09:00 07/21/18 09:00 07/21/18 09:00 07/21/18 09:00 07/20/18 22:00 Active Medications Dexamethasone Sodium Phosphate (Decadron Injection -) 10 mg IVPUSH Q8H-IV [facility] Last Admin: 07/21/18 10:25 Dose: 10 mg Furosemide (Lasix -) 60 mg PO BIDLASIX [facility] Last Admin: 07/21/18 06:39 Dose: 60 mg Vancomycin HCl 1,250 mg/ (Dextrose) 250 mls @ 166.667 mls/hr IVPB BID [facility]; Protocol Last Admin: 07/21/18 10:29 Dose: 166.667 mls/hr Lisinopril (Prinivil) 5 mg PO DAILY [facility] Last Admin: 07/21/18 10:28 Dose: 5 mg Methimazole (Tapazole -) 10 mg PO DAILY [facility] Last Admin: 07/21/18 10:28 Dose: 10 mg Nystatin (Nystatin Oral Suspension -) 500,000 units PO Q6HPO [facility] Last Admin: 07/21/18 12:52 Dose: 500,000 units Pantoprazole Sodium (Protonix -) 40 mg PO BID [facility] Last Admin: 07/21/18 10:28 Dose: 40 mg Rivaroxaban (Xarelto -) 20 mg PO DAILY [facility] Last Admin: 07/21/18 10:28 Dose: 20 mg Gen: Awake and alert on NC O2 Heart: RRR Lung: distant breath sounds, no active wheezing Abd: soft, nontender, obese Ext: no edema ASSESSMENT AND PLAN: Acute on Chronic Hypoxic and Hypercapneic Respiratory Failure Acute COPD Exacerbation LV Diastolic Dysfunction r/o Pneumonia Morbid Obesity Severe BONY/OHS (RDI 156 events per hour: titrated to BIPAP: ) HTN h/o DVT Upper Airway symptoms likely related to intubation - Wean Decadron - Cautious PO intake - inhaled bronchodilators - O2 to keep Spo2 >90% - ABX per ID - Lasix - monitor urine output, creatinine - NC O2 as tolerated and NIPPV PRN & QHS - Continue anticoagulation Dr Arellano
--- NOTE | 2018-07-21 13:52 | PN ---
Progress Note, Physician Chief Complaint: seen and examined on nasal canula says his hoarsness and swallowing getting slightly better - Current Medication List Current Medications: Active Medications Dexamethasone Sodium Phosphate (Decadron Injection -) 6 mg IVPUSH Q8H-IV [facility] Furosemide (Lasix -) 60 mg PO BIDLASIX [facility] Last Admin: 07/21/18 06:39 Dose: 60 mg Vancomycin HCl 1,250 mg/ (Dextrose) 250 mls @ 166.667 mls/hr IVPB BID [facility]; Protocol Last Admin: 07/21/18 10:29 Dose: 166.667 mls/hr Lisinopril (Prinivil) 5 mg PO DAILY [facility] Last Admin: 07/21/18 10:28 Dose: 5 mg Methimazole (Tapazole -) 10 mg PO DAILY [facility] Last Admin: 07/21/18 10:28 Dose: 10 mg Nystatin (Nystatin Oral Suspension -) 500,000 units PO Q6HPO [facility] Last Admin: 07/21/18 12:52 Dose: 500,000 units Pantoprazole Sodium (Protonix -) 40 mg PO BID [facility] Last Admin: 07/21/18 10:28 Dose: 40 mg Rivaroxaban (Xarelto -) 20 mg PO DAILY [facility] Last Admin: 07/21/18 10:28 Dose: 20 mg - Objective Vital Signs: Vital Signs Temperature 97.7 F 07/21/18 09:00 Pulse Rate 97 H 07/21/18 09:00 Respiratory Rate 20 07/21/18 09:00 Blood Pressure 107/66 07/21/18 09:00 O2 Sat by Pulse Oximetry (%) 100 07/20/18 22:00 Constitutional: Yes: Calm Cardiovascular: Yes: Regular Rate and Rhythm, S1, S2 Respiratory: Yes: CTA Bilaterally Gastrointestinal: Yes: Normal Bowel Sounds, Soft, Abdomen, Obese Edema: No Labs: CBC, BMP 07/18/18 06:30 07/18/18 06:30 INR, PTT INR 1.46 (0.83-1.09) H 07/13/18 07:00 Problem List - Problems (1) Acute respiratory failure Assessment/Plan: s/p extubation on decadron NIPPV Code(s): J96.00 - ACUTE RESPIRATORY FAILURE, UNSP W HYPOXIA OR HYPERCAPNIA (2) Tachycardia Assessment/Plan: lytes repleted cardiac monitoring- HR improved Code(s): R00.0 - TACHYCARDIA, UNSPECIFIED (3) Seizure Assessment/Plan: no more questionable seizure activity Code(s): R56.9 - UNSPECIFIED CONVULSIONS (4) Fever Assessment/Plan: influenza negative possible pna MRSA in sputum contact isolation zosyn stopped on vancomycin marquez stop today Microbiology 07/13/18 16:30 Sputum - Endotrachea Suction/Ventilator Gram Stain - Final 07/13/18 16:30 Sputum - Endotrachea Suction/Ventilator Sputum Culture - Final S Aureus 07/13/18 07:15 Blood - Peripheral Venous Blood Culture - Final NO GROWTH AFTER 5 DAYS INCUBATION 07/13/18 07:00 Blood - Peripheral Venous Blood Culture - Final NO GROWTH AFTER 5 DAYS INCUBATION Code(s): R50.9 - FEVER, UNSPECIFIED (5) DVT (deep venous thrombosis) Assessment/Plan: on xarelto Code(s): I82.409 - ACUTE EMBOLISM AND THOMBOS UNSP DEEP VN UNSP LOWER EXTREMITY (6) Difficulty swallowing Assessment/Plan: swallow eval noted cannot get MBS given his weight ENT follow up on discharge , consult appreciated iv decadron nystatin solution PPI Code(s): R13.10 - DYSPHAGIA, UNSPECIFIED
--- NOTE | 2018-07-21 14:00 | PN ---
Progress Note (short form) - Note Progress Note: extubated alert notes throat discomfort unchanged remains on decadron Vital Signs Period Temp Pulse Resp BP Sys/[place] Pulse Ox Last 24 Hr 97.1 F-97.8 F 80-111 20-20 105-141/63-85 98-100 thick neck no thrush cor rrr lungs clear abd soft,nt ext venous stasis CBC, BMP 07/18/18 06:30 07/18/18 06:30 Microbiology 07/13/18 07:15 Blood - Peripheral Venous Blood Culture - Final NO GROWTH AFTER 5 DAYS INCUBATION 07/13/18 07:00 Blood - Peripheral Venous Blood Culture - Final NO GROWTH AFTER 5 DAYS INCUBATION 07/13/18 16:30 Sputum - Endotrachea Suction/Ventilator Gram Stain - Final 07/13/18 16:30 Sputum - Endotrachea Suction/Ventilator Sputum Culture - Final S Aureus 07/12/18 12:15 Urine For Antigen Detection Legionella Antigen - Final 07/12/18 12:15 Urine For Antigen Detection Streptococcus pneumoniae Antigen (M - Final a/p hypercapneic respiratory failure-extubated cannot r/o pneumonia ?aspiration, healthcare associated morbid obesity-overall difficult physical exam and imaging due to patient's size sputum culture MRSA day #9 antibiotics- d/c today throat pain- ?secondary to ET tube, ent note reviewed on decadron prior ct scan 2015 with large thyroid for ultrasound/ct scan of the neck d/w dr núñez contact isolation MRSA pleae call back if needed Problem List - Problems (1) Acute on chronic respiratory failure with hypoxia and hypercapnia Code(s): J96.21 - ACUTE AND CHRONIC RESPIRATORY FAILURE WITH HYPOXIA; J96.22 - ACUTE AND CHRONIC RESPIRATORY FAILURE WITH HYPERCAPNIA (2) Fever Code(s): R50.9 - FEVER, UNSPECIFIED (3) Pneumonia Code(s): J18.9 - PNEUMONIA, UNSPECIFIED ORGANISM (4) Morbid obesity with BMI of 50.0-59.9, adult Code(s): Z68.43 - BODY MASS INDEX (BMI) 50-59.9, ADULT
[2018-07-22] MEDS: DEXAMETHASONE SOD PHOSPHATE 10 MG/1 ML VIAL IVPUSH SCH ×3 (03:00→17:44)
[2018-07-22] MEDS: NYSTATIN 500,000 UNITS/5 ML SUSPENSION PO SCH ×4 (07:05→17:44)
[2018-07-22] MEDS: FUROSEMIDE 40 MG TABLET (FP) PO SCH ×2 (07:05→14:01)
[2018-07-22 07:27] LABS: BASO % 0.4 % (0-2.0); EOS % 0.9 % (0-4.5); HEMATOCRIT 40.8 % (35.4-49); LYMPH % 3.4 % (8-40); MCHC 31.8 g/dl (32.0-35.9); MEAN CELL VOLUME 91.3 fl (80-96); MEAN PLT VOLUME 7.4 fl (7.5-11.1); MONO % 11.7 % (3.8-10.2); NEUT % 83.6 % (42.8-82.8); PLATELET COUNT 264 K/MM3 (134-434); RBC 4.47 M/mm3 (4.00-5.60); RDW 15.7 % (11.9-15.9); WHITE BLOOD COUNT 10.4 K/mm3 (4.0-10.0)
[2018-07-22 08:26] LABS: ALBUMIN 2.8 g/dl (3.4-5.0); ALK PHOS 90 U/L (45-117); ANION GAP 7 MMOL/L (8-16); BILIRUBIN,TOTAL 0.5 mg/dL (0.2-1); BLOOD UREA NITROGEN 31 mg/dL (7-18); CALCIUM 8.2 mg/dL (8.5-10.1); CHLORIDE 83 mmol/L (98-107); CO2 > 45 mmol/L (21-32); CREATININE 0.6 mg/dL (0.55-1.3); GLUCOSE,RANDOM 114 mg/dL (74-106); POTASSIUM 3.5 mmol/L (3.5-5.1); SGOT/AST 15 U/L (15-37); SGPT/ALT 52 U/L (13-61); SODIUM 135 mmol/L (136-145); TOT PROT 5.4 g/dl (6.4-8.2)
--- NOTE | 2018-07-22 09:50 | PN ---
Progress Note, Physician - Current Medication List Current Medications: Active Medications Dexamethasone Sodium Phosphate (Decadron Injection -) 6 mg IVPUSH Q8H-IV [facility] Last Admin: 07/22/18 03:00 Dose: 6 mg Furosemide (Lasix -) 60 mg PO BIDLASIX [facility] Last Admin: 07/22/18 07:05 Dose: 60 mg Lisinopril (Prinivil) 5 mg PO DAILY [facility] Last Admin: 07/21/18 10:28 Dose: 5 mg Methimazole (Tapazole -) 10 mg PO DAILY [facility] Last Admin: 07/21/18 10:28 Dose: 10 mg Nystatin (Nystatin Oral Suspension -) 500,000 units PO Q6HPO [facility] Last Admin: 07/22/18 07:05 Dose: 500,000 units Pantoprazole Sodium (Protonix -) 40 mg PO BID [facility] Last Admin: 07/21/18 21:42 Dose: 40 mg Rivaroxaban (Xarelto -) 20 mg PO DAILY [facility] Last Admin: 07/21/18 10:28 Dose: 20 mg - Objective Vital Signs: Vital Signs Temperature 98.2 F 07/22/18 01:00 Pulse Rate 87 07/22/18 05:00 Respiratory Rate 20 07/22/18 05:00 Blood Pressure 129/68 07/22/18 05:00 O2 Sat by Pulse Oximetry (%) 98 07/22/18 07:39 Cardiovascular: Yes: S1, S2 Respiratory: Yes: Diminished, On Nasal O2 Gastrointestinal: Yes: Normal Bowel Sounds, Soft Labs: CBC, BMP 07/22/18 05:30 07/22/18 05:30 INR, PTT INR 1.46 (0.83-1.09) H 07/13/18 07:00 Assessment/Plan - Problems (1) Acute respiratory failure Assessment/Plan: s/p extubation on decadron NIPPV Code(s): J96.00 - ACUTE RESPIRATORY FAILURE, UNSP W HYPOXIA OR HYPERCAPNIA (2) Tachycardia Assessment/Plan: lytes repleted cardiac monitoring- HR improved Code(s): R00.0 - TACHYCARDIA, UNSPECIFIED (3) Seizure Assessment/Plan: no more questionable seizure activity Code(s): R56.9 - UNSPECIFIED CONVULSIONS (4) Fever Assessment/Plan: influenza negative possible pna MRSA in sputum contact isolation zosyn stopped on vancomycin marquez stop today Microbiology 07/13/18 16:30 Sputum - Endotrachea Suction/Ventilator Gram Stain - Final 07/13/18 16:30 Sputum - Endotrachea Suction/Ventilator Sputum Culture - Final S Aureus 07/13/18 07:15 Blood - Peripheral Venous Blood Culture - Final NO GROWTH AFTER 5 DAYS INCUBATION 07/13/18 07:00 Blood - Peripheral Venous Blood Culture - Final NO GROWTH AFTER 5 DAYS INCUBATION Code(s): R50.9 - FEVER, UNSPECIFIED (5) DVT (deep venous thrombosis) Assessment/Plan: on xarelto Code(s): I82.409 - ACUTE EMBOLISM AND THOMBOS UNSP DEEP VN UNSP LOWER EXTREMITY (6) Difficulty swallowing Assessment/Plan: swallow eval noted cannot get MBS given his weight ENT follow up on discharge , consult appreciated--CT neck iv decadron nystatin solution PPI Code(s): R13.10 - DYSPHAGIA, UNSPECIFIED
[2018-07-22 10:02] LABS: ANISOCYTOSIS 0; MACROCYTOSIS 0; PLATELET ESTIMATE NORMAL
--- NOTE | 2018-07-22 10:33 | PN ---
Progress Note, Physician History of Present Illness: PULMONARY ALERT,FEELING BETTER ON NASAL CANNULA,-RESP DISTRESS. - Current Medication List Current Medications: Active Medications Dexamethasone Sodium Phosphate (Decadron Injection -) 6 mg IVPUSH Q8H-IV [facility] Last Admin: 07/22/18 03:00 Dose: 6 mg Furosemide (Lasix -) 60 mg PO BIDLASIX [facility] Last Admin: 07/22/18 07:05 Dose: 60 mg Lisinopril (Prinivil) 5 mg PO DAILY [facility] Last Admin: 07/21/18 10:28 Dose: 5 mg Methimazole (Tapazole -) 10 mg PO DAILY [facility] Last Admin: 07/21/18 10:28 Dose: 10 mg Nystatin (Nystatin Oral Suspension -) 500,000 units PO Q6HPO [facility] Last Admin: 07/22/18 07:05 Dose: 500,000 units Pantoprazole Sodium (Protonix -) 40 mg PO BID [facility] Last Admin: 07/21/18 21:42 Dose: 40 mg Rivaroxaban (Xarelto -) 20 mg PO DAILY [facility] Last Admin: 07/21/18 10:28 Dose: 20 mg - Objective Vital Signs: Vital Signs Temperature 97.6 F 07/22/18 10:00 Pulse Rate 104 H 07/22/18 10:00 Respiratory Rate 20 07/22/18 10:00 Blood Pressure 108/67 07/22/18 10:00 O2 Sat by Pulse Oximetry (%) 99 07/22/18 10:00 Constitutional: Yes: Calm, Obese Eyes: Yes: WNL HENT: Yes: WNL Neck: Yes: WNL Cardiovascular: Yes: Regular Rate and Rhythm, S1, S2 Respiratory: Yes: Diminished Gastrointestinal: Yes: Normal Bowel Sounds, Soft, Abdomen, Obese Extremities: Yes: WNL Edema: Yes Labs: CBC, BMP 07/22/18 05:30 07/22/18 05:30 INR, PTT INR 1.46 (0.83-1.09) H 07/13/18 07:00 Problem List - Problems (1) Acute on chronic respiratory failure with hypoxia and hypercapnia Code(s): J96.21 - ACUTE AND CHRONIC RESPIRATORY FAILURE WITH HYPOXIA; J96.22 - ACUTE AND CHRONIC RESPIRATORY FAILURE WITH HYPERCAPNIA (2) Acute respiratory failure Code(s): J96.00 - ACUTE RESPIRATORY FAILURE, UNSP W HYPOXIA OR HYPERCAPNIA (3) DVT (deep venous thrombosis) Code(s): I82.409 - ACUTE EMBOLISM AND THOMBOS UNSP DEEP VN UNSP LOWER EXTREMITY (4) Difficulty swallowing Code(s): R13.10 - DYSPHAGIA, UNSPECIFIED (5) Fever Code(s): R50.9 - FEVER, UNSPECIFIED (6) Bilateral lower extremity edema Code(s): R60.0 - LOCALIZED EDEMA (7) HTN (hypertension) Code(s): I10 - ESSENTIAL (PRIMARY) HYPERTENSION (8) Hx of deep venous thrombosis Code(s): Z86.718 - PERSONAL HISTORY OF OTHER VENOUS THROMBOSIS AND EMBOLISM (9) Moderate to severe pulmonary hypertension Code(s): I27.2 - OTHER SECONDARY PULMONARY HYPERTENSION * DO NOT USE * (10) Morbid (severe) obesity due to excess calories Code(s): E66.01 - MORBID (SEVERE) OBESITY DUE TO EXCESS CALORIES (11) Obesity hypoventilation syndrome Code(s): E66.2 - MORBID (SEVERE) OBESITY WITH ALVEOLAR HYPOVENTILATION (12) Pulmonary hypertension Code(s): I27.2 - OTHER SECONDARY PULMONARY HYPERTENSION * DO NOT USE * (13) Sleep apnea Code(s): G47.30 - SLEEP APNEA, UNSPECIFIED Assessment/Plan ASSESSMENT AND PLAN: Acute on Chronic Hypoxic and Hypercapneic Respiratory Failure improving Acute COPD Exacerbation improving LV Diastolic Dysfunction r/o Pneumonia Morbid Obesity Severe BONY/OHS (RDI 156 events per hour: titrated to BIPAP: ) HTN h/o DVT Upper Airway symptoms likely related to intubation improving - - continue Decadron - PO intake as tolerated - inhaled bronchodilators - O2 to keep Spo2 >90% - Lasix - monitor urine output, creatinine - NC O2 as tolerated and NIPPV PRN & QHS - anticoagulation DR COE
[2018-07-22] MEDS: METHIMAZOLE 10 MG TABLET (FP) PO SCH (10:42)
[2018-07-22] MEDS: RIVAROXABAN 20 MG TABLET PO SCH (10:42)
[2018-07-22] MEDS: LISINOPRIL 5 MG TABLET (FP) PO SCH (10:42)
[2018-07-22] MEDS: PANTOPRAZOLE 40 MG TABLET (FP) PO SCH ×2 (10:42→21:14)
[2018-07-23] MEDS: NYSTATIN 500,000 UNITS/5 ML SUSPENSION PO SCH ×4 (03:12→17:51)
[2018-07-23] MEDS: DEXAMETHASONE SOD PHOSPHATE 10 MG/1 ML VIAL IVPUSH SCH ×3 (03:12→17:51)
[2018-07-23] MEDS: FUROSEMIDE 40 MG TABLET (FP) PO SCH ×2 (06:09→13:40)
[2018-07-23] MEDS: LISINOPRIL 5 MG TABLET (FP) PO SCH (09:23)
[2018-07-23] MEDS: METHIMAZOLE 10 MG TABLET (FP) PO SCH (09:23)
[2018-07-23] MEDS: PANTOPRAZOLE 40 MG TABLET (FP) PO SCH ×2 (09:24→22:41)
[2018-07-23] MEDS: RIVAROXABAN 20 MG TABLET PO SCH (09:24)
--- NOTE | 2018-07-23 10:17 | PN ---
Progress Note, Physician Chief Complaint: PULMONARY ALERT,-RESP DISTRESS,ON NASAL O2. SORE THROAT IMPROVING - Current Medication List Current Medications: Active Medications Dexamethasone Sodium Phosphate (Decadron Injection -) 6 mg IVPUSH Q8H-IV [facility] Last Admin: 07/23/18 09:24 Dose: 6 mg Furosemide (Lasix -) 60 mg PO BIDLASIX [facility] Last Admin: 07/23/18 06:09 Dose: 60 mg Lisinopril (Prinivil) 5 mg PO DAILY [facility] Last Admin: 07/23/18 09:23 Dose: 5 mg Methimazole (Tapazole -) 10 mg PO DAILY [facility] Last Admin: 07/23/18 09:23 Dose: 10 mg Nystatin (Nystatin Oral Suspension -) 500,000 units PO Q6HPO [facility] Last Admin: 07/23/18 06:09 Dose: 500,000 units Pantoprazole Sodium (Protonix -) 40 mg PO BID [facility] Last Admin: 07/23/18 09:24 Dose: 40 mg Rivaroxaban (Xarelto -) 20 mg PO DAILY [facility] Last Admin: 07/23/18 09:24 Dose: 20 mg - Objective Vital Signs: Vital Signs Temperature 97.8 F 07/23/18 10:00 Pulse Rate 88 07/23/18 10:00 Respiratory Rate 20 07/23/18 10:00 Blood Pressure 115/70 07/23/18 10:00 O2 Sat by Pulse Oximetry (%) 99 07/23/18 10:00 Constitutional: Yes: Calm, Obese (MORBIDLY OBESE) Eyes: Yes: WNL HENT: Yes: WNL Neck: Yes: WNL Cardiovascular: Yes: Regular Rate and Rhythm, S1, S2 Respiratory: Yes: Diminished Gastrointestinal: Yes: Normal Bowel Sounds, Soft Extremities: Yes: WNL Edema: Yes Problem List - Problems (1) Acute on chronic respiratory failure with hypoxia and hypercapnia Code(s): J96.21 - ACUTE AND CHRONIC RESPIRATORY FAILURE WITH HYPOXIA; J96.22 - ACUTE AND CHRONIC RESPIRATORY FAILURE WITH HYPERCAPNIA (2) Acute respiratory failure Code(s): J96.00 - ACUTE RESPIRATORY FAILURE, UNSP W HYPOXIA OR HYPERCAPNIA (3) DVT (deep venous thrombosis) Code(s): I82.409 - ACUTE EMBOLISM AND THOMBOS UNSP DEEP VN UNSP LOWER EXTREMITY (4) Difficulty swallowing Code(s): R13.10 - DYSPHAGIA, UNSPECIFIED (5) Fever Code(s): R50.9 - FEVER, UNSPECIFIED (6) Bilateral lower extremity edema Code(s): R60.0 - LOCALIZED EDEMA (7) HTN (hypertension) Code(s): I10 - ESSENTIAL (PRIMARY) HYPERTENSION (8) Hx of deep venous thrombosis Code(s): Z86.718 - PERSONAL HISTORY OF OTHER VENOUS THROMBOSIS AND EMBOLISM (9) Moderate to severe pulmonary hypertension Code(s): I27.2 - OTHER SECONDARY PULMONARY HYPERTENSION * DO NOT USE * (10) Morbid (severe) obesity due to excess calories Code(s): E66.01 - MORBID (SEVERE) OBESITY DUE TO EXCESS CALORIES (11) Obesity hypoventilation syndrome Code(s): E66.2 - MORBID (SEVERE) OBESITY WITH ALVEOLAR HYPOVENTILATION (12) Pulmonary hypertension Code(s): I27.2 - OTHER SECONDARY PULMONARY HYPERTENSION * DO NOT USE * (13) Sleep apnea Code(s): G47.30 - SLEEP APNEA, UNSPECIFIED Assessment/Plan ASSESSMENT AND PLAN: Acute on Chronic Hypoxic and Hypercapneic Respiratory Failure improving Acute COPD Exacerbation improving LV Diastolic Dysfunction r/o Pneumonia Morbid Obesity Severe BONY/OHS (RDI 156 events per hour: titrated to BIPAP: ) HTN h/o DVT Upper Airway symptoms likely related to intubation improving - - Decadron - PO intake as tolerated - inhaled bronchodilators - O2 to keep Spo2 >90% - Lasix - monitor urine output, creatinine - NC O2 as tolerated and NIPPV PRN & QHS - anticoagulation DR COE
--- NOTE | 2018-07-23 13:47 | PN ---
Progress Note, Physician - Current Medication List Current Medications: Active Medications Dexamethasone Sodium Phosphate (Decadron Injection -) 6 mg IVPUSH Q8H-IV [facility] Last Admin: 07/23/18 09:24 Dose: 6 mg Furosemide (Lasix -) 60 mg PO BIDLASIX [facility] Last Admin: 07/23/18 13:40 Dose: 60 mg Lisinopril (Prinivil) 5 mg PO DAILY [facility] Last Admin: 07/23/18 09:23 Dose: 5 mg Methimazole (Tapazole -) 10 mg PO DAILY [facility] Last Admin: 07/23/18 09:23 Dose: 10 mg Nystatin (Nystatin Oral Suspension -) 500,000 units PO Q6HPO [facility] Last Admin: 07/23/18 12:39 Dose: 500,000 units Pantoprazole Sodium (Protonix -) 40 mg PO BID [facility] Last Admin: 07/23/18 09:24 Dose: 40 mg Rivaroxaban (Xarelto -) 20 mg PO DAILY [facility] Last Admin: 07/23/18 09:24 Dose: 20 mg - Objective Vital Signs: Vital Signs Temperature 97.8 F 07/23/18 10:00 Pulse Rate 88 07/23/18 10:00 Respiratory Rate 20 07/23/18 10:00 Blood Pressure 115/70 07/23/18 10:00 O2 Sat by Pulse Oximetry (%) 98 07/23/18 11:45 Cardiovascular: Yes: S1, S2 Respiratory: Yes: Diminished, On Nasal O2 Gastrointestinal: Yes: Normal Bowel Sounds, Soft Labs: CBC, BMP 07/22/18 05:30 07/22/18 05:30 INR, PTT INR 1.46 (0.83-1.09) H 07/13/18 07:00 Assessment/Plan - Problems (1) Acute respiratory failure Assessment/Plan: s/p extubation on decadron NIPPV Code(s): J96.00 - ACUTE RESPIRATORY FAILURE, UNSP W HYPOXIA OR HYPERCAPNIA (2) Tachycardia Assessment/Plan: lytes repleted cardiac monitoring- HR improved Code(s): R00.0 - TACHYCARDIA, UNSPECIFIED (3) Seizure Assessment/Plan: no more questionable seizure activity Code(s): R56.9 - UNSPECIFIED CONVULSIONS (4) Fever Assessment/Plan: influenza negative possible pna MRSA in sputum contact isolation zosyn stopped on vancomycin marquez stop today Microbiology 07/13/18 16:30 Sputum - Endotrachea Suction/Ventilator Gram Stain - Final 07/13/18 16:30 Sputum - Endotrachea Suction/Ventilator Sputum Culture - Final S Aureus 07/13/18 07:15 Blood - Peripheral Venous Blood Culture - Final NO GROWTH AFTER 5 DAYS INCUBATION 07/13/18 07:00 Blood - Peripheral Venous Blood Culture - Final NO GROWTH AFTER 5 DAYS INCUBATION Code(s): R50.9 - FEVER, UNSPECIFIED (5) DVT (deep venous thrombosis) Assessment/Plan: on xarelto Code(s): I82.409 - ACUTE EMBOLISM AND THOMBOS UNSP DEEP VN UNSP LOWER EXTREMITY (6) Difficulty swallowing Assessment/Plan: swallow eval noted cannot get MBS given his weight ENT follow up on discharge , consult appreciated--CT neck when able to lay down iv decadron nystatin solution PPI Code(s): R13.10 - DYSPHAGIA, UNSPECIFIED
--- NOTE | 2018-07-23 18:40 | PN ---
Progress Note, Physician - Current Medication List Current Medications: Active Medications Dexamethasone Sodium Phosphate (Decadron Injection -) 6 mg IVPUSH Q8H-IV [facility] Last Admin: 07/23/18 17:51 Dose: 6 mg Furosemide (Lasix -) 60 mg PO BIDLASIX [facility] Last Admin: 07/23/18 13:40 Dose: 60 mg Lisinopril (Prinivil) 5 mg PO DAILY [facility] Last Admin: 07/23/18 09:23 Dose: 5 mg Methimazole (Tapazole -) 10 mg PO DAILY [facility] Last Admin: 07/23/18 09:23 Dose: 10 mg Nystatin (Nystatin Oral Suspension -) 500,000 units PO Q6HPO [facility] Last Admin: 07/23/18 17:51 Dose: 500,000 units Pantoprazole Sodium (Protonix -) 40 mg PO BID [facility] Last Admin: 07/23/18 09:24 Dose: 40 mg Rivaroxaban (Xarelto -) 20 mg PO DAILY [facility] Last Admin: 07/23/18 09:24 Dose: 20 mg - Objective Vital Signs: Vital Signs Temperature 97.2 F L 07/23/18 18:08 Pulse Rate 94 H 07/23/18 18:08 Respiratory Rate 18 07/23/18 18:08 Blood Pressure 103/64 07/23/18 18:08 O2 Sat by Pulse Oximetry (%) 97 07/23/18 17:48 Labs: CBC, BMP 07/22/18 05:30 07/22/18 05:30 INR, PTT INR 1.46 (0.83-1.09) H 07/13/18 07:00 Problem List - Problems (1) Acute on chronic respiratory failure with hypoxia and hypercapnia Code(s): J96.21 - ACUTE AND CHRONIC RESPIRATORY FAILURE WITH HYPOXIA; J96.22 - ACUTE AND CHRONIC RESPIRATORY FAILURE WITH HYPERCAPNIA (2) Fever Code(s): R50.9 - FEVER, UNSPECIFIED (3) Tachycardia Code(s): R00.0 - TACHYCARDIA, UNSPECIFIED (4) Acute on chronic diastolic CHF (congestive heart failure) Code(s): I50.33 - ACUTE ON CHRONIC DIASTOLIC (CONGESTIVE) HEART FAILURE (5) Bilateral lower extremity edema Code(s): R60.0 - LOCALIZED EDEMA (6) COPD exacerbation Code(s): J44.1 - CHRONIC OBSTRUCTIVE PULMONARY DISEASE W (ACUTE) EXACERBATION (7) HTN (hypertension) Code(s): I10 - ESSENTIAL (PRIMARY) HYPERTENSION (8) Moderate to severe pulmonary hypertension Code(s): I27.2 - OTHER SECONDARY PULMONARY HYPERTENSION * DO NOT USE * (9) Morbid obesity Code(s): E66.01 - MORBID (SEVERE) OBESITY DUE TO EXCESS CALORIES (10) Sleep apnea Code(s): G47.30 - SLEEP APNEA, UNSPECIFIED (11) DVT (deep venous thrombosis) Code(s): I82.409 - ACUTE EMBOLISM AND THOMBOS UNSP DEEP VN UNSP LOWER EXTREMITY (12) [place] cardiac risk >20% in next 10 years Code(s): Z91.89 - OTH PERSONAL RISK FACTORS, NOT ELSEWHERE CLASSIFIED (13) Hyperlipidemia Code(s): E78.5 - HYPERLIPIDEMIA, UNSPECIFIED
--- NOTE | 2018-07-23 18:41 | PN ---
Progress Note, Physician - Current Medication List Current Medications: Active Medications Dexamethasone Sodium Phosphate (Decadron Injection -) 6 mg IVPUSH Q8H-IV [facility] Last Admin: 07/23/18 17:51 Dose: 6 mg Furosemide (Lasix -) 60 mg PO BIDLASIX [facility] Last Admin: 07/23/18 13:40 Dose: 60 mg Lisinopril (Prinivil) 5 mg PO DAILY [facility] Last Admin: 07/23/18 09:23 Dose: 5 mg Methimazole (Tapazole -) 10 mg PO DAILY [facility] Last Admin: 07/23/18 09:23 Dose: 10 mg Nystatin (Nystatin Oral Suspension -) 500,000 units PO Q6HPO [facility] Last Admin: 07/23/18 17:51 Dose: 500,000 units Pantoprazole Sodium (Protonix -) 40 mg PO BID [facility] Last Admin: 07/23/18 09:24 Dose: 40 mg Rivaroxaban (Xarelto -) 20 mg PO DAILY [facility] Last Admin: 07/23/18 09:24 Dose: 20 mg - Objective Vital Signs: Vital Signs Temperature 97.2 F L 07/23/18 18:08 Pulse Rate 94 H 07/23/18 18:08 Respiratory Rate 18 07/23/18 18:08 Blood Pressure 103/64 07/23/18 18:08 O2 Sat by Pulse Oximetry (%) 97 07/23/18 17:48 Labs: CBC, BMP 07/22/18 05:30 07/22/18 05:30 INR, PTT INR 1.46 (0.83-1.09) H 07/13/18 07:00 Problem List - Problems (1) Acute on chronic respiratory failure with hypoxia and hypercapnia Code(s): J96.21 - ACUTE AND CHRONIC RESPIRATORY FAILURE WITH HYPOXIA; J96.22 - ACUTE AND CHRONIC RESPIRATORY FAILURE WITH HYPERCAPNIA (2) Fever Code(s): R50.9 - FEVER, UNSPECIFIED (3) Tachycardia Code(s): R00.0 - TACHYCARDIA, UNSPECIFIED (4) Acute on chronic diastolic CHF (congestive heart failure) Code(s): I50.33 - ACUTE ON CHRONIC DIASTOLIC (CONGESTIVE) HEART FAILURE (5) Bilateral lower extremity edema Code(s): R60.0 - LOCALIZED EDEMA (6) COPD exacerbation Code(s): J44.1 - CHRONIC OBSTRUCTIVE PULMONARY DISEASE W (ACUTE) EXACERBATION (7) HTN (hypertension) Code(s): I10 - ESSENTIAL (PRIMARY) HYPERTENSION (8) Moderate to severe pulmonary hypertension Code(s): I27.2 - OTHER SECONDARY PULMONARY HYPERTENSION * DO NOT USE * (9) Morbid obesity Code(s): E66.01 - MORBID (SEVERE) OBESITY DUE TO EXCESS CALORIES (10) Sleep apnea Code(s): G47.30 - SLEEP APNEA, UNSPECIFIED (11) DVT (deep venous thrombosis) Code(s): I82.409 - ACUTE EMBOLISM AND THOMBOS UNSP DEEP VN UNSP LOWER EXTREMITY (12) [place] cardiac risk >20% in next 10 years Code(s): Z91.89 - OTH PERSONAL RISK FACTORS, NOT ELSEWHERE CLASSIFIED (13) Hyperlipidemia Code(s): E78.5 - HYPERLIPIDEMIA, UNSPECIFIED
--- NOTE | 2018-07-23 18:43 | PN ---
Progress Note, Physician Chief Complaint: Pt A&Ox3; asymptomatic. History of Present Illness: Patient is a 47 y/o black male with a history of BONY, morbid obesity, COPD(on 3L O2), diastolic CHF, anemia, UGI bleeding, HTN, DM (?diet-controlled), hyperthyroidism, glaucoma, DVT and kidney stones who presents for "high potassium". Patient reports he was recently at [facility] where he was intubated for a pneumonia. He was transferred to [facility] for physical therapy. While there they took his labs and found that his potassium was high. He reports feeling fatigued. He denies fever, chills, chest pain, shortness of breath, nausea, vomiting and headache. - Current Medication List Current Medications: Active Medications Dexamethasone Sodium Phosphate (Decadron Injection -) 6 mg IVPUSH Q8H-IV [facility] Last Admin: 07/23/18 17:51 Dose: 6 mg Furosemide (Lasix -) 60 mg PO BIDLASIX [facility] Last Admin: 07/23/18 13:40 Dose: 60 mg Lisinopril (Prinivil) 5 mg PO DAILY [facility] Last Admin: 07/23/18 09:23 Dose: 5 mg Methimazole (Tapazole -) 10 mg PO DAILY [facility] Last Admin: 07/23/18 09:23 Dose: 10 mg Nystatin (Nystatin Oral Suspension -) 500,000 units PO Q6HPO [facility] Last Admin: 07/23/18 17:51 Dose: 500,000 units Pantoprazole Sodium (Protonix -) 40 mg PO BID [facility] Last Admin: 07/23/18 09:24 Dose: 40 mg Rivaroxaban (Xarelto -) 20 mg PO DAILY [facility] Last Admin: 07/23/18 09:24 Dose: 20 mg - Objective Vital Signs: Vital Signs Temperature 97.2 F L 07/23/18 18:08 Pulse Rate 94 H 07/23/18 18:08 Respiratory Rate 18 07/23/18 18:08 Blood Pressure 103/64 07/23/18 18:08 O2 Sat by Pulse Oximetry (%) 97 07/23/18 17:48 Labs: CBC, BMP 07/22/18 05:30 07/22/18 05:30 INR, PTT INR 1.46 (0.83-1.09) H 07/13/18 07:00 Problem List - Problems (1) Acute on chronic respiratory failure with hypoxia and hypercapnia Assessment/Plan: Ccntinue bronchodilators, O2, and steroids per pulmnologist Code(s): J96.21 - ACUTE AND CHRONIC RESPIRATORY FAILURE WITH HYPOXIA; J96.22 - ACUTE AND CHRONIC RESPIRATORY FAILURE WITH HYPERCAPNIA (2) Fever Assessment/Plan: Afebrile Off antibiotics. Code(s): R50.9 - FEVER, UNSPECIFIED (3) Tachycardia Assessment/Plan: periods of sinus tachycardia have decreased; multiple factors responsible, including intermittent fever, anxiety, respirartory distress, obesity, sedentary state, BONY, hyperthyroidism, dehydration. Code(s): R00.0 - TACHYCARDIA, UNSPECIFIED (4) Acute on chronic diastolic CHF (congestive heart failure) Assessment/Plan: on furosemide CXR shows improvement of CHF changes. Start lisinopril 5 mg daily. Hold potassium. F/u BUN/Cr, Is and Os, daily weight, electrolytes. Code(s): I50.33 - ACUTE ON CHRONIC DIASTOLIC (CONGESTIVE) HEART FAILURE (5) Bilateral lower extremity edema Code(s): R60.0 - LOCALIZED EDEMA (6) COPD exacerbation Code(s): J44.1 - CHRONIC OBSTRUCTIVE PULMONARY DISEASE W (ACUTE) EXACERBATION (7) HTN (hypertension) Code(s): I10 - ESSENTIAL (PRIMARY) HYPERTENSION (8) Moderate to severe pulmonary hypertension Code(s): I27.2 - OTHER SECONDARY PULMONARY HYPERTENSION * DO NOT USE * (9) Morbid obesity Code(s): E66.01 - MORBID (SEVERE) OBESITY DUE TO EXCESS CALORIES (10) Sleep apnea Code(s): G47.30 - SLEEP APNEA, UNSPECIFIED (11) DVT (deep venous thrombosis) Code(s): I82.409 - ACUTE EMBOLISM AND THOMBOS UNSP DEEP VN UNSP LOWER EXTREMITY (12) [place] cardiac risk >20% in next 10 years Code(s): Z91.89 - OTH PERSONAL RISK FACTORS, NOT ELSEWHERE CLASSIFIED (13) Hyperlipidemia Code(s): E78.5 - HYPERLIPIDEMIA, UNSPECIFIED
[2018-07-24] MEDS: NYSTATIN 500,000 UNITS/5 ML SUSPENSION PO SCH ×5 (01:29→23:50)
[2018-07-24] MEDS: DEXAMETHASONE SOD PHOSPHATE 10 MG/1 ML VIAL IVPUSH SCH ×3 (01:30→18:21)
[2018-07-24] MEDS: FUROSEMIDE 40 MG TABLET (FP) PO SCH ×2 (05:59→14:03)
--- NOTE | 2018-07-24 10:26 | PN ---
Progress Note, Physician History of Present Illness: PULMONARY ALERT,COMFORTABLE,-RESP DISTRESS,SORE THROAT IMPROVING. PT EATING W/O DIFFICULTY - Current Medication List Current Medications: Active Medications Dexamethasone Sodium Phosphate (Decadron Injection -) 6 mg IVPUSH Q8H-IV [facility] Last Admin: 07/24/18 01:30 Dose: 6 mg Furosemide (Lasix -) 60 mg PO BIDLASIX [facility] Last Admin: 07/24/18 05:59 Dose: 60 mg Lisinopril (Prinivil) 5 mg PO DAILY [facility] Last Admin: 07/23/18 09:23 Dose: 5 mg Methimazole (Tapazole -) 10 mg PO DAILY [facility] Last Admin: 07/23/18 09:23 Dose: 10 mg Nystatin (Nystatin Oral Suspension -) 500,000 units PO Q6HPO [facility] Last Admin: 07/24/18 05:59 Dose: 500,000 units Pantoprazole Sodium (Protonix -) 40 mg PO BID [facility] Last Admin: 07/23/18 22:41 Dose: 40 mg Rivaroxaban (Xarelto -) 20 mg PO DAILY [facility] Last Admin: 07/23/18 09:24 Dose: 20 mg - Objective Vital Signs: Vital Signs Temperature 97.6 F 07/24/18 01:00 Pulse Rate 94 H 07/24/18 09:00 Respiratory Rate 22 H 07/24/18 09:00 Blood Pressure 98/59 L 07/24/18 09:00 O2 Sat by Pulse Oximetry (%) 98 07/24/18 09:28 Constitutional: Yes: Calm, Obese Eyes: Yes: WNL HENT: Yes: WNL Neck: Yes: WNL Cardiovascular: Yes: Regular Rate and Rhythm, S1, S2 Respiratory: Yes: Diminished Gastrointestinal: Yes: Normal Bowel Sounds, Soft Extremities: Yes: WNL Edema: Yes Labs: CBC, BMP Problem List - Problems (1) Acute on chronic respiratory failure with hypoxia and hypercapnia Code(s): J96.21 - ACUTE AND CHRONIC RESPIRATORY FAILURE WITH HYPOXIA; J96.22 - ACUTE AND CHRONIC RESPIRATORY FAILURE WITH HYPERCAPNIA (2) Acute respiratory failure Code(s): J96.00 - ACUTE RESPIRATORY FAILURE, UNSP W HYPOXIA OR HYPERCAPNIA (3) DVT (deep venous thrombosis) Code(s): I82.409 - ACUTE EMBOLISM AND THOMBOS UNSP DEEP VN UNSP LOWER EXTREMITY (4) Difficulty swallowing Code(s): R13.10 - DYSPHAGIA, UNSPECIFIED (5) Fever Code(s): R50.9 - FEVER, UNSPECIFIED (6) Bilateral lower extremity edema Code(s): R60.0 - LOCALIZED EDEMA (7) HTN (hypertension) Code(s): I10 - ESSENTIAL (PRIMARY) HYPERTENSION (8) Hx of deep venous thrombosis Code(s): Z86.718 - PERSONAL HISTORY OF OTHER VENOUS THROMBOSIS AND EMBOLISM (9) Moderate to severe pulmonary hypertension Code(s): I27.2 - OTHER SECONDARY PULMONARY HYPERTENSION * DO NOT USE * (10) Morbid (severe) obesity due to excess calories Code(s): E66.01 - MORBID (SEVERE) OBESITY DUE TO EXCESS CALORIES (11) Obesity hypoventilation syndrome Code(s): E66.2 - MORBID (SEVERE) OBESITY WITH ALVEOLAR HYPOVENTILATION (12) Pulmonary hypertension Code(s): I27.2 - OTHER SECONDARY PULMONARY HYPERTENSION * DO NOT USE * (13) Sleep apnea Code(s): G47.30 - SLEEP APNEA, UNSPECIFIED Assessment/Plan ASSESSMENT AND PLAN: Acute on Chronic Hypoxic and Hypercapneic Respiratory Failure improving Acute COPD Exacerbation improving LV Diastolic Dysfunction r/o Pneumonia Morbid Obesity Severe BONY/OHS (RDI 156 events per hour: titrated to BIPAP: ) HTN h/o DVT Upper Airway symptoms likely related to intubation improving - - Decadron taper - PO intake as tolerated - inhaled bronchodilators - O2 to keep Spo2 >90% - Lasix - monitor urine output, creatinine - NC O2 as tolerated and NIPPV PRN & QHS - anticoagulation - wt reduction - consider bariatric surgery consult DR COE
[2018-07-24] MEDS: RIVAROXABAN 20 MG TABLET PO SCH (10:50)
[2018-07-24] MEDS: METHIMAZOLE 10 MG TABLET (FP) PO SCH (10:50)
[2018-07-24] MEDS: PANTOPRAZOLE 40 MG TABLET (FP) PO SCH ×2 (10:50→23:50)
[2018-07-24] MEDS: LISINOPRIL 5 MG TABLET (FP) PO SCH (10:50)
--- NOTE | 2018-07-24 11:50 | PN ---
Progress Note, Physician - Current Medication List Current Medications: Active Medications Dexamethasone Sodium Phosphate (Decadron Injection -) 6 mg IVPUSH Q8H-IV [facility] Last Admin: 07/24/18 10:49 Dose: 6 mg Furosemide (Lasix -) 60 mg PO BIDLASIX [facility] Last Admin: 07/24/18 05:59 Dose: 60 mg Lisinopril (Prinivil) 5 mg PO DAILY [facility] Last Admin: 07/24/18 10:50 Dose: 5 mg Methimazole (Tapazole -) 10 mg PO DAILY [facility] Last Admin: 07/24/18 10:50 Dose: 10 mg Nystatin (Nystatin Oral Suspension -) 500,000 units PO Q6HPO [facility] Last Admin: 07/24/18 05:59 Dose: 500,000 units Pantoprazole Sodium (Protonix -) 40 mg PO BID [facility] Last Admin: 07/24/18 10:50 Dose: 40 mg Rivaroxaban (Xarelto -) 20 mg PO DAILY [facility] Last Admin: 07/24/18 10:50 Dose: 20 mg - Objective Vital Signs: Vital Signs Temperature 97.6 F 07/24/18 01:00 Pulse Rate 94 H 07/24/18 09:00 Respiratory Rate 22 H 07/24/18 09:00 Blood Pressure 98/59 L 07/24/18 09:00 O2 Sat by Pulse Oximetry (%) 98 07/24/18 09:28 Cardiovascular: Yes: Regular Rate and Rhythm Respiratory: Yes: Diminished, On Nasal O2 Gastrointestinal: Yes: Normal Bowel Sounds, Soft Labs: CBC, BMP 07/22/18 05:30 07/22/18 05:30 INR, PTT INR 1.46 (0.83-1.09) H 07/13/18 07:00 Assessment/Plan - Problems (1) Acute respiratory failure Assessment/Plan: s/p extubation on decadron NIPPV Code(s): J96.00 - ACUTE RESPIRATORY FAILURE, UNSP W HYPOXIA OR HYPERCAPNIA (2) Tachycardia Assessment/Plan: lytes repleted cardiac monitoring- HR improved Code(s): R00.0 - TACHYCARDIA, UNSPECIFIED (3) Seizure Assessment/Plan: no more questionable seizure activity Code(s): R56.9 - UNSPECIFIED CONVULSIONS (4) Fever Assessment/Plan: influenza negative possible pna MRSA in sputum contact isolation zosyn stopped on vancomycin marquez stop today Microbiology 07/13/18 16:30 Sputum - Endotrachea Suction/Ventilator Gram Stain - Final 07/13/18 16:30 Sputum - Endotrachea Suction/Ventilator Sputum Culture - Final S Aureus 07/13/18 07:15 Blood - Peripheral Venous Blood Culture - Final NO GROWTH AFTER 5 DAYS INCUBATION 07/13/18 07:00 Blood - Peripheral Venous Blood Culture - Final NO GROWTH AFTER 5 DAYS INCUBATION Code(s): R50.9 - FEVER, UNSPECIFIED (5) DVT (deep venous thrombosis) Assessment/Plan: on xarelto Code(s): I82.409 - ACUTE EMBOLISM AND THOMBOS UNSP DEEP VN UNSP LOWER EXTREMITY (6) Difficulty swallowing Assessment/Plan: swallow eval noted cannot get MBS given his weight ENT follow up on discharge , consult appreciated--CT neck when able to lay down iv decadron nystatin solution PPI Code(s): R13.10 - DYSPHAGIA, UNSPECIFIED
[2018-07-25] MEDS ORDERED: DEXAMETHASONE 4 MG TABLET (FP) PO ONE (03:47)
[2018-07-25] MEDS: DEXAMETHASONE SOD PHOSPHATE 10 MG/1 ML VIAL IVPUSH SCH (04:08)
[2018-07-25] MEDS: NYSTATIN 500,000 UNITS/5 ML SUSPENSION PO SCH ×4 (05:24→23:38)
[2018-07-25] MEDS: FUROSEMIDE 40 MG TABLET (FP) PO SCH ×2 (05:24→13:25)
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
[2018-07-25] MEDS: METHIMAZOLE 10 MG TABLET (FP) PO SCH (10:45)
[2018-07-25] MEDS: RIVAROXABAN 20 MG TABLET PO SCH (10:50)
[2018-07-25] MEDS: LISINOPRIL 5 MG TABLET (FP) PO SCH (11:00)
[2018-07-25] MEDS: PANTOPRAZOLE 40 MG TABLET (FP) PO SCH ×2 (11:00→21:21)
--- NOTE | 2018-07-25 11:18 | PN ---
Progress Note, Physician History of Present Illness: PULMONARY ALERT,NO DISTRESS,COMFORTABLE,SORE THROAT CONTINUES TO IMPROVE - Current Medication List Current Medications: Active Medications Dexamethasone Sodium Phosphate (Decadron Injection -) 6 mg IVPUSH Q8H-IV [facility] Last Admin: 07/25/18 04:08 Dose: Not Given Furosemide (Lasix -) 60 mg PO BIDLASIX [facility] Last Admin: 07/25/18 05:24 Dose: 60 mg Lisinopril (Prinivil) 5 mg PO DAILY [facility] Last Admin: 07/24/18 10:50 Dose: 5 mg Methimazole (Tapazole -) 10 mg PO DAILY [facility] Last Admin: 07/24/18 10:50 Dose: 10 mg Nystatin (Nystatin Oral Suspension -) 500,000 units PO Q6HPO [facility] Last Admin: 07/25/18 05:24 Dose: 500,000 units Pantoprazole Sodium (Protonix -) 40 mg PO BID [facility] Last Admin: 07/24/18 23:50 Dose: 40 mg Rivaroxaban (Xarelto -) 20 mg PO DAILY [facility] Last Admin: 07/24/18 10:50 Dose: 20 mg - Objective Vital Signs: Vital Signs Temperature 98.2 F 07/25/18 06:00 Pulse Rate 84 07/25/18 06:00 Respiratory Rate 20 07/25/18 06:00 Blood Pressure 121/74 07/25/18 06:00 O2 Sat by Pulse Oximetry (%) 96 07/25/18 07:30 Constitutional: Yes: Calm, Obese (MORBIDLY OBESES) Eyes: Yes: WNL HENT: Yes: WNL Neck: Yes: WNL Cardiovascular: Yes: Regular Rate and Rhythm, S1, S2 Respiratory: Yes: CTA Bilaterally Gastrointestinal: Yes: Normal Bowel Sounds, Soft Extremities: Yes: WNL Edema: Yes Labs: CBC, BMP Problem List - Problems (1) Acute on chronic respiratory failure with hypoxia and hypercapnia Code(s): J96.21 - ACUTE AND CHRONIC RESPIRATORY FAILURE WITH HYPOXIA; J96.22 - ACUTE AND CHRONIC RESPIRATORY FAILURE WITH HYPERCAPNIA (2) Acute respiratory failure Code(s): J96.00 - ACUTE RESPIRATORY FAILURE, UNSP W HYPOXIA OR HYPERCAPNIA (3) DVT (deep venous thrombosis) Code(s): I82.409 - ACUTE EMBOLISM AND THOMBOS UNSP DEEP VN UNSP LOWER EXTREMITY (4) Difficulty swallowing Code(s): R13.10 - DYSPHAGIA, UNSPECIFIED (5) Fever Code(s): R50.9 - FEVER, UNSPECIFIED (6) Bilateral lower extremity edema Code(s): R60.0 - LOCALIZED EDEMA (7) HTN (hypertension) Code(s): I10 - ESSENTIAL (PRIMARY) HYPERTENSION (8) Hx of deep venous thrombosis Code(s): Z86.718 - PERSONAL HISTORY OF OTHER VENOUS THROMBOSIS AND EMBOLISM (9) Moderate to severe pulmonary hypertension Code(s): I27.2 - OTHER SECONDARY PULMONARY HYPERTENSION * DO NOT USE * (10) Morbid (severe) obesity due to excess calories Code(s): E66.01 - MORBID (SEVERE) OBESITY DUE TO EXCESS CALORIES (11) Obesity hypoventilation syndrome Code(s): E66.2 - MORBID (SEVERE) OBESITY WITH ALVEOLAR HYPOVENTILATION (12) Pulmonary hypertension Code(s): I27.2 - OTHER SECONDARY PULMONARY HYPERTENSION * DO NOT USE * (13) Sleep apnea Code(s): G47.30 - SLEEP APNEA, UNSPECIFIED Assessment/Plan ASSESSMENT AND PLAN: Acute on Chronic Hypoxic and Hypercapneic Respiratory Failure improving Acute COPD Exacerbation improving LV Diastolic Dysfunction r/o Pneumonia Morbid Obesity Severe BONY/OHS (RDI 156 events per hour: titrated to BIPAP: ) HTN h/o DVT Upper Airway symptoms likely related to intubation improving - Decadron taper - inhaled bronchodilators - O2 to keep Spo2 >90% - Lasix - monitor urine output, creatinine - NC O2 as tolerated and NIPPV PRN & QHS - anticoagulation - wt reduction - consider bariatric surgery consult DR COE
[2018-07-25] MEDS ORDERED: DEXAMETHASONE SOD PHOSPHATE 10 MG/1 ML VIAL IVPUSH SCH (12:00)
--- NOTE | 2018-07-25 15:50 | PN ---
Progress Note (short form) - Note Progress Note: Thoracic Surgery: Responding to consult. Goiter. Limited intrathoracic involvement. Will likely not need any sternotomy in future. ENT or H/N surgeon can call me for backup if necessary at time of surgery when indicated.
[2018-07-25] MEDS: DEXAMETHASONE 4 MG TABLET (FP) PO SCH (17:10)
--- NOTE | 2018-07-25 17:19 | PN ---
Progress Note, Physician Chief Complaint: Chronic Respiratory Failure Thyroid Enlargement Tachycardia History of Present Illness: Previous notes and events reviewed awake and alert NAD denies chest pain, SOB - Current Medication List Current Medications: Active Medications Dexamethasone (Decadron -) 4 mg PO Q8H-IV [facility] Furosemide (Lasix -) 60 mg PO BIDLASIX [facility] Last Admin: 07/25/18 13:25 Dose: 60 mg Lisinopril (Prinivil) 5 mg PO DAILY [facility] Last Admin: 07/25/18 11:00 Dose: 5 mg Methimazole (Tapazole -) 10 mg PO DAILY [facility] Last Admin: 07/25/18 10:45 Dose: 10 mg Nystatin (Nystatin Oral Suspension -) 500,000 units PO Q6HPO [facility] Last Admin: 07/25/18 13:00 Dose: 500,000 units Pantoprazole Sodium (Protonix -) 40 mg PO BID [facility] Last Admin: 07/25/18 11:00 Dose: 40 mg Rivaroxaban (Xarelto -) 20 mg PO DAILY [facility] Last Admin: 07/25/18 10:50 Dose: 20 mg - Objective Vital Signs: Vital Signs Temperature 97.7 F 07/25/18 14:20 Pulse Rate 99 H 07/25/18 14:20 Respiratory Rate 22 H 07/25/18 14:20 Blood Pressure 118/60 07/25/18 14:20 O2 Sat by Pulse Oximetry (%) 96 07/25/18 07:30 Constitutional: Yes: No Distress, Calm, Obese Eyes: Yes: Conjunctiva Clear HENT: Yes: Atraumatic Cardiovascular: Yes: Regular Rate and Rhythm Respiratory: Yes: Regular, CTA Bilaterally, On Nasal O2 Gastrointestinal: Yes: Normal Bowel Sounds, Soft, Abdomen, Obese Musculoskeletal: Yes: Muscle Weakness Extremities: Yes: WNL Edema: Yes (B/L lower extremity) Neurological: Yes: Alert, Oriented Psychiatric: Yes: Alert, Oriented Labs: CBC, BMP 07/22/18 05:30 07/22/18 05:30 INR, PTT INR 1.46 (0.83-1.09) H 07/13/18 07:00 Problem List - Problems (1) Acute on chronic respiratory failure with hypoxia and hypercapnia Assessment/Plan: -pulm on board -decadron taper -O2 via NC -Bipap HS -keep SpO2 >90% Code(s): J96.21 - ACUTE AND CHRONIC RESPIRATORY FAILURE WITH HYPOXIA; J96.22 - ACUTE AND CHRONIC RESPIRATORY FAILURE WITH HYPERCAPNIA (2) DVT (deep venous thrombosis) Assessment/Plan: -on xarelto Code(s): I82.409 - ACUTE EMBOLISM AND THOMBOS UNSP DEEP VN UNSP LOWER EXTREMITY (3) Seizure Assessment/Plan: -resolved -neuro on board Code(s): R56.9 - UNSPECIFIED CONVULSIONS (4) Tachycardia Assessment/Plan: -tele monitoring -cardio on board Code(s): R00.0 - TACHYCARDIA, UNSPECIFIED (5) Goiter Assessment/Plan: -Soft tissue neck CT scan shows multinodular goiter of the thyroid gland microcalcifications in the R lobe of the thyroid gland, extension of the L lobe of thyroid gland into superior mediastinum, retrosternal region with deviation of the trachea, esophagus to R side -endo consult -thoracic surgery recommendation appreciated -ENT On board Code(s): E04.9 - NONTOXIC GOITER, UNSPECIFIED (6) HTN (hypertension) Assessment/Plan: -low Na diet Code(s): I10 - ESSENTIAL (PRIMARY) HYPERTENSION (7) Hyperthyroidism Assessment/Plan: -endo consult -continue Tapazole --Soft tissue neck CT scan shows multinodular goiter of the thyroid gland microcalcifications in the R lobe of the thyroid gland, extension of the L lobe of thyroid gland into superior mediastinum, retrosternal region with deviation of the trachea, esophagus to R side Code(s): E05.90 - THYROTOXICOSIS, UNSP WITHOUT THYROTOXIC CRISIS OR STORM (8) Acute on chronic diastolic CHF (congestive heart failure) Assessment/Plan: -cardio on board -continue Lasix and Lisinopril -tele monitoring -1L fluid restriction -daily weight Code(s): I50.33 - ACUTE ON CHRONIC DIASTOLIC (CONGESTIVE) HEART FAILURE Assessment/Plan see progress note dvt ppx
[2018-07-26] MEDS: DEXAMETHASONE 4 MG TABLET (FP) PO SCH ×4 (01:52→21:42)
[2018-07-26] MEDS: NYSTATIN 500,000 UNITS/5 ML SUSPENSION PO SCH ×4 (06:31→23:38)
[2018-07-26] MEDS: FUROSEMIDE 40 MG TABLET (FP) PO SCH ×2 (06:31→14:32)
[2018-07-26 07:37] LABS: HEMATOCRIT 39.5 % (35.4-49); HEMOGLOBIN 12.7 GM/dL (11.7-16.9); MCH 28.7 pg (25.7-33.7); MEAN CELL VOLUME 89.6 fl (80-96); MEAN PLT VOLUME 7.5 fl (7.5-11.1); PLATELET COUNT 246 K/MM3 (134-434); RBC 4.41 M/mm3 (4.00-5.60); RDW 15.6 % (11.9-15.9); WHITE BLOOD COUNT 16.4 K/mm3 (4.0-10.0)
[2018-07-26 08:16] LABS: ALBUMIN 2.8 g/dl (3.4-5.0); ALK PHOS 100 U/L (45-117); ANION GAP 5 MMOL/L (8-16); BILIRUBIN,TOTAL 0.7 mg/dL (0.2-1); BLOOD UREA NITROGEN 22 mg/dL (7-18); CALCIUM 8.4 mg/dL (8.5-10.1); CHLORIDE 88 mmol/L (98-107); CO2 39 mmol/L (21-32); CREATININE 0.5 mg/dL (0.55-1.3); GLUCOSE,RANDOM 132 mg/dL (74-106); POTASSIUM 4.1 mmol/L (3.5-5.1); SGOT/AST 14 U/L (15-37); SGPT/ALT 57 U/L (13-61); SODIUM 132 mmol/L (136-145); TOT PROT 5.5 g/dl (6.4-8.2)
[2018-07-26] MEDS: LISINOPRIL 5 MG TABLET (FP) PO SCH (09:50)
[2018-07-26] MEDS: METHIMAZOLE 10 MG TABLET (FP) PO SCH (09:50)
[2018-07-26] MEDS: RIVAROXABAN 20 MG TABLET PO SCH (09:50)
[2018-07-26] MEDS: PANTOPRAZOLE 40 MG TABLET (FP) PO SCH ×2 (09:50→21:42)
--- NOTE | 2018-07-26 10:28 | PN ---
Progress Note, Physician History of Present Illness: PULMONARY ALERT,NO DISTRESS,SORE THROAT IMPROVING - Current Medication List Current Medications: Active Medications Dexamethasone (Decadron -) 4 mg PO Q8H-IV [facility] Last Admin: 07/26/18 09:50 Dose: 4 mg Furosemide (Lasix -) 60 mg PO BIDLASIX [facility] Last Admin: 07/26/18 06:31 Dose: 60 mg Lisinopril (Prinivil) 5 mg PO DAILY [facility] Last Admin: 07/26/18 09:50 Dose: 5 mg Methimazole (Tapazole -) 10 mg PO DAILY [facility] Last Admin: 07/26/18 09:50 Dose: 10 mg Nystatin (Nystatin Oral Suspension -) 500,000 units PO Q6HPO [facility] Last Admin: 07/26/18 06:31 Dose: 500,000 units Pantoprazole Sodium (Protonix -) 40 mg PO BID [facility] Last Admin: 07/26/18 09:50 Dose: 40 mg Rivaroxaban (Xarelto -) 20 mg PO DAILY [facility] Last Admin: 07/26/18 09:50 Dose: 20 mg - Objective Vital Signs: Vital Signs Temperature 98 F 07/26/18 10:00 Pulse Rate 96 H 07/26/18 10:00 Respiratory Rate 18 07/26/18 10:00 Blood Pressure 111/68 07/26/18 10:00 O2 Sat by Pulse Oximetry (%) 96 07/26/18 07:30 Constitutional: Yes: Obese (MORBIDLY OBESE) Eyes: Yes: WNL HENT: Yes: WNL Neck: Yes: WNL Cardiovascular: Yes: Regular Rate and Rhythm, S1, S2 Respiratory: Yes: Diminished Gastrointestinal: Yes: Normal Bowel Sounds, Soft, Abdomen, Obese Extremities: Yes: WNL Edema: Yes Labs: CBC, BMP 07/26/18 06:50 07/26/18 06:50 INR, PTT INR 1.46 (0.83-1.09) H 07/13/18 07:00 - ....Imaging Cat Scan: Report Reviewed, Image Reviewed Problem List - Problems (1) Acute on chronic respiratory failure with hypoxia and hypercapnia Code(s): J96.21 - ACUTE AND CHRONIC RESPIRATORY FAILURE WITH HYPOXIA; J96.22 - ACUTE AND CHRONIC RESPIRATORY FAILURE WITH HYPERCAPNIA (2) Acute respiratory failure Code(s): J96.00 - ACUTE RESPIRATORY FAILURE, UNSP W HYPOXIA OR HYPERCAPNIA (3) DVT (deep venous thrombosis) Code(s): I82.409 - ACUTE EMBOLISM AND THOMBOS UNSP DEEP VN UNSP LOWER EXTREMITY (4) Difficulty swallowing Code(s): R13.10 - DYSPHAGIA, UNSPECIFIED (5) Fever Code(s): R50.9 - FEVER, UNSPECIFIED (6) Bilateral lower extremity edema Code(s): R60.0 - LOCALIZED EDEMA (7) HTN (hypertension) Code(s): I10 - ESSENTIAL (PRIMARY) HYPERTENSION (8) Hx of deep venous thrombosis Code(s): Z86.718 - PERSONAL HISTORY OF OTHER VENOUS THROMBOSIS AND EMBOLISM (9) Moderate to severe pulmonary hypertension Code(s): I27.2 - OTHER SECONDARY PULMONARY HYPERTENSION * DO NOT USE * (10) Morbid (severe) obesity due to excess calories Code(s): E66.01 - MORBID (SEVERE) OBESITY DUE TO EXCESS CALORIES (11) Obesity hypoventilation syndrome Code(s): E66.2 - MORBID (SEVERE) OBESITY WITH ALVEOLAR HYPOVENTILATION (12) Pulmonary hypertension Code(s): I27.2 - OTHER SECONDARY PULMONARY HYPERTENSION * DO NOT USE * (13) Sleep apnea Code(s): G47.30 - SLEEP APNEA, UNSPECIFIED Assessment/Plan ASSESSMENT AND PLAN: Acute on Chronic Hypoxic and Hypercapneic Respiratory Failure improving Acute COPD Exacerbation improving LV Diastolic Dysfunction r/o Pneumonia Morbid Obesity Severe BONY/OHS (RDI 156 events per hour: titrated to BIPAP: ) HTN h/o DVT Upper Airway symptoms likely related to intubation improving Multinodular goiter - PO Decadron - inhaled bronchodilators - O2 to keep Spo2 >90% - Lasix - monitor urine output, creatinine - NC O2 as tolerated and NIPPV PRN & QHS - anticoagulation - wt reduction - consider bariatric surgery consult DR COE
--- NOTE | 2018-07-26 12:25 | PN ---
Progress Note, Physician Chief Complaint: Chronic Respiratory Failure Thyroid Enlargement Tachycardia - Current Medication List Current Medications: Active Medications Dexamethasone (Decadron -) 4 mg PO Q8H-IV [facility] Last Admin: 07/26/18 09:50 Dose: 4 mg Furosemide (Lasix -) 60 mg PO BIDLASIX [facility] Last Admin: 07/26/18 06:31 Dose: 60 mg Lisinopril (Prinivil) 5 mg PO DAILY [facility] Last Admin: 07/26/18 09:50 Dose: 5 mg Methimazole (Tapazole -) 10 mg PO DAILY [facility] Last Admin: 07/26/18 09:50 Dose: 10 mg Nystatin (Nystatin Oral Suspension -) 500,000 units PO Q6HPO [facility] Last Admin: 07/26/18 06:31 Dose: 500,000 units Pantoprazole Sodium (Protonix -) 40 mg PO BID [facility] Last Admin: 07/26/18 09:50 Dose: 40 mg Rivaroxaban (Xarelto -) 20 mg PO DAILY [facility] Last Admin: 07/26/18 09:50 Dose: 20 mg - Objective Vital Signs: Vital Signs Temperature 98 F 07/26/18 10:00 Pulse Rate 96 H 07/26/18 10:00 Respiratory Rate 18 07/26/18 10:00 Blood Pressure 111/68 07/26/18 10:00 O2 Sat by Pulse Oximetry (%) 96 07/26/18 07:30 Constitutional: Yes: Well Nourished, No Distress, Calm, Obese Cardiovascular: Yes: Regular Rate and Rhythm Respiratory: Yes: Regular, Diminished (BLLL), On Nasal O2 Gastrointestinal: Yes: Normal Bowel Sounds, Soft, Abdomen, Obese Musculoskeletal: Yes: Muscle Weakness Extremities: Yes: WNL Edema: Yes Edema: LLE: 2+, RLE: 2+ Peripheral Pulses WNL: Yes Neurological: Yes: Alert, Oriented Psychiatric: Yes: Alert, Oriented Labs: CBC, BMP 07/26/18 06:50 07/26/18 06:50 INR, PTT INR 1.46 (0.83-1.09) H 07/13/18 07:00 Problem List - Problems (1) Acute on chronic respiratory failure with hypoxia and hypercapnia Assessment/Plan: -Decadron tapering dose-decrease to 4mg po BID -pulm on board -O2 via NC -Bipap HS -keep SpO2 >90% Code(s): J96.21 - ACUTE AND CHRONIC RESPIRATORY FAILURE WITH HYPOXIA; J96.22 - ACUTE AND CHRONIC RESPIRATORY FAILURE WITH HYPERCAPNIA (2) Tachycardia Assessment/Plan: -Tele monitoring -Cardiology on board Code(s): R00.0 - TACHYCARDIA, UNSPECIFIED (3) Goiter Assessment/Plan: -Soft tissue neck CT scan shows multinodular goiter of the thyroid gland microcalcifications in the R lobe of the thyroid gland, extension of the L lobe of thyroid gland into superior mediastinum, retrosternal region with deviation of the trachea, esophagus to R side -endo consult -thoracic surgery recommendation appreciated -ENT On board Code(s): E04.9 - NONTOXIC GOITER, UNSPECIFIED (4) HTN (hypertension) Assessment/Plan: -BP under control -Cardiology on board -Continue lisinopril+ furosemide Code(s): I10 - ESSENTIAL (PRIMARY) HYPERTENSION (5) Hx of deep venous thrombosis Assessment/Plan: -On Xarelto Code(s): Z86.718 - PERSONAL HISTORY OF OTHER VENOUS THROMBOSIS AND EMBOLISM (6) Morbid obesity with BMI of 50.0-59.9, adult Assessment/Plan: -low calorie diet -RD consult Code(s): Z68.43 - BODY MASS INDEX (BMI) 50-59.9, ADULT (7) Hyperthyroidism Assessment/Plan: -On methimazole -repeat thyroid profile in 4 weeks Code(s): E05.90 - THYROTOXICOSIS, UNSP WITHOUT THYROTOXIC CRISIS OR STORM (8) Leukocytosis Assessment/Plan: -2/2 to systemic steroids -afebrile Code(s): D72.829 - ELEVATED WHITE BLOOD CELL COUNT, UNSPECIFIED (9) Acute on chronic diastolic CHF (congestive heart failure) Assessment/Plan: -Seen by Cardiology -Low sodium diet -Continue Furosemide Code(s): I50.33 - ACUTE ON CHRONIC DIASTOLIC (CONGESTIVE) HEART FAILURE Assessment/Plan see problem list Physical therapy Return to SNF in AM
--- NOTE | 2018-07-26 15:15 | PN ---
Progress Note, Physician - Current Medication List Current Medications: Active Medications Dexamethasone (Decadron -) 4 mg PO Q8H-IV [facility] Last Admin: 07/26/18 09:50 Dose: 4 mg Furosemide (Lasix -) 60 mg PO BIDLASIX [facility] Last Admin: 07/26/18 14:32 Dose: 60 mg Lisinopril (Prinivil) 5 mg PO DAILY [facility] Last Admin: 07/26/18 09:50 Dose: 5 mg Methimazole (Tapazole -) 10 mg PO DAILY [facility] Last Admin: 07/26/18 09:50 Dose: 10 mg Nystatin (Nystatin Oral Suspension -) 500,000 units PO Q6HPO [facility] Last Admin: 07/26/18 12:35 Dose: 500,000 units Pantoprazole Sodium (Protonix -) 40 mg PO BID [facility] Last Admin: 07/26/18 09:50 Dose: 40 mg Rivaroxaban (Xarelto -) 20 mg PO DAILY [facility] Last Admin: 07/26/18 09:50 Dose: 20 mg - Objective Vital Signs: Vital Signs Temperature 98 F 07/26/18 10:00 Pulse Rate 96 H 07/26/18 10:00 Respiratory Rate 18 07/26/18 10:00 Blood Pressure 111/68 07/26/18 10:00 O2 Sat by Pulse Oximetry (%) 96 07/26/18 10:00 Labs: CBC, BMP 07/26/18 06:50 07/26/18 06:50 INR, PTT INR 1.46 (0.83-1.09) H 07/13/18 07:00 Problem List - Problems (1) Acute on chronic respiratory failure with hypoxia and hypercapnia Code(s): J96.21 - ACUTE AND CHRONIC RESPIRATORY FAILURE WITH HYPOXIA; J96.22 - ACUTE AND CHRONIC RESPIRATORY FAILURE WITH HYPERCAPNIA (2) Fever Code(s): R50.9 - FEVER, UNSPECIFIED (3) Tachycardia Code(s): R00.0 - TACHYCARDIA, UNSPECIFIED (4) Acute on chronic diastolic CHF (congestive heart failure) Code(s): I50.33 - ACUTE ON CHRONIC DIASTOLIC (CONGESTIVE) HEART FAILURE (5) Bilateral lower extremity edema Code(s): R60.0 - LOCALIZED EDEMA (6) COPD exacerbation Code(s): J44.1 - CHRONIC OBSTRUCTIVE PULMONARY DISEASE W (ACUTE) EXACERBATION (7) HTN (hypertension) Code(s): I10 - ESSENTIAL (PRIMARY) HYPERTENSION (8) Moderate to severe pulmonary hypertension Code(s): I27.2 - OTHER SECONDARY PULMONARY HYPERTENSION * DO NOT USE * (9) Morbid obesity Code(s): E66.01 - MORBID (SEVERE) OBESITY DUE TO EXCESS CALORIES (10) Sleep apnea Code(s): G47.30 - SLEEP APNEA, UNSPECIFIED (11) DVT (deep venous thrombosis) Code(s): I82.409 - ACUTE EMBOLISM AND THOMBOS UNSP DEEP VN UNSP LOWER EXTREMITY (12) [place] cardiac risk >20% in next 10 years Code(s): Z91.89 - OTH PERSONAL RISK FACTORS, NOT ELSEWHERE CLASSIFIED (13) Hyperlipidemia Code(s): E78.5 - HYPERLIPIDEMIA, UNSPECIFIED
--- NOTE | 2018-07-26 15:39 | PN ---
Progress Note, Physician Chief Complaint: Pt A&Ox3; states he wishes it was easier for him to breathe, and this is one of the reasons he seldom leaves his home. History of Present Illness: Patient is a 47 y/o black male with a history of BONY, morbid obesity, COPD(on 3L O2), diastolic CHF, anemia, UGI bleeding, HTN, DM (?diet-controlled), hyperthyroidism, glaucoma, DVT and kidney stones who presents for "high potassium". Patient reports he was recently at [facility] where he was intubated for a pneumonia. He was transferred to [facility] for physical therapy. While there they took his labs and found that his potassium was high. He reports feeling fatigued. He denies fever, chills, chest pain, shortness of breath, nausea, vomiting and headache. - Current Medication List Current Medications: Active Medications Dexamethasone (Decadron -) 4 mg PO Q8H-IV [facility] Last Admin: 07/26/18 09:50 Dose: 4 mg Furosemide (Lasix -) 60 mg PO BIDLASIX [facility] Last Admin: 07/26/18 14:32 Dose: 60 mg Lisinopril (Prinivil) 5 mg PO DAILY [facility] Last Admin: 07/26/18 09:50 Dose: 5 mg Methimazole (Tapazole -) 10 mg PO DAILY [facility] Last Admin: 07/26/18 09:50 Dose: 10 mg Nystatin (Nystatin Oral Suspension -) 500,000 units PO Q6HPO [facility] Last Admin: 07/26/18 12:35 Dose: 500,000 units Pantoprazole Sodium (Protonix -) 40 mg PO BID [facility] Last Admin: 07/26/18 09:50 Dose: 40 mg Rivaroxaban (Xarelto -) 20 mg PO DAILY [facility] Last Admin: 07/26/18 09:50 Dose: 20 mg - Objective Vital Signs: Vital Signs Temperature 98 F 07/26/18 10:00 Pulse Rate 96 H 07/26/18 10:00 Respiratory Rate 18 07/26/18 10:00 Blood Pressure 111/68 07/26/18 10:00 O2 Sat by Pulse Oximetry (%) 96 07/26/18 10:00 Constitutional: Yes: Calm, Obese Eyes: Yes: WNL HENT: Yes: WNL Neck: Yes: Decreased ROM Cardiovascular: Yes: S1, S2, S4 Respiratory: Yes: Regular, Diminished Gastrointestinal: Yes: Abdomen, Obese ...Rectal Exam: Yes: Deferred Genitourinary: No: Anuria Breast(s): Yes: WNL Musculoskeletal: Yes: Back Pain, Joint Stiffness, Joint Swelling, Muscle Weakness Extremities: Yes: Cool Edema: Yes Edema: LLE: 1+ (chronic; nonpitting), RLE: 1+ Peripheral Pulses WNL: Yes Integumentary: Yes: Onychomycosis, Venous Stasis Changes Neurological: Yes: Alert, Oriented, Weakness Labs: CBC, BMP 07/26/18 06:50 07/26/18 06:50 INR, PTT INR 1.46 (0.83-1.09) H 07/13/18 07:00 Abnormal Lab Results 07/26/18 07/26/18 06:50 06:50 WBC 16.4 H Sodium 132 L Chloride 88 L Carbon Dioxide 39 H Anion Gap 5 L BUN 22 H Creatinine 0.5 L Random Glucose 132 H Calcium 8.4 L AST 14 L Total Protein 5.5 L Albumin 2.8 L Problem List - Problems (1) Acute on chronic respiratory failure with hypoxia and hypercapnia Assessment/Plan: Ccntinue bronchodilators, O2, and steroids per pulmnologist Code(s): J96.21 - ACUTE AND CHRONIC RESPIRATORY FAILURE WITH HYPOXIA; J96.22 - ACUTE AND CHRONIC RESPIRATORY FAILURE WITH HYPERCAPNIA (2) Tachycardia Assessment/Plan: periods of sinus tachycardia have decreased; multiple factors responsible, including intermittent fever, anxiety, respirartory distress, obesity, sedentary state, BONY, hyperthyroidism, dehydration. Code(s): R00.0 - TACHYCARDIA, UNSPECIFIED (3) Acute on chronic diastolic CHF (congestive heart failure) Assessment/Plan: on furosemide CXR shows improvement of CHF changes. Start lisinopril 5 mg daily. Hold potassium. F/u BUN/Cr, Is and Os, daily weight, electrolytes. Code(s): I50.33 - ACUTE ON CHRONIC DIASTOLIC (CONGESTIVE) HEART FAILURE (4) Bilateral lower extremity edema Code(s): R60.0 - LOCALIZED EDEMA (5) COPD exacerbation Code(s): J44.1 - CHRONIC OBSTRUCTIVE PULMONARY DISEASE W (ACUTE) EXACERBATION (6) HTN (hypertension) Assessment/Plan: Consdier ACEI or ARB (HTN; borderline DM; hypokalemia while on loop diuretic; diastolic CHF) Code(s): I10 - ESSENTIAL (PRIMARY) HYPERTENSION (7) Moderate to severe pulmonary hypertension Code(s): I27.2 - OTHER SECONDARY PULMONARY HYPERTENSION * DO NOT USE * (8) Morbid obesity Assessment/Plan: In the past, pt has spoken of undergoing gastric bypass surgery. He now speaks of planning to follow a healthier diet, with portion control as the means to losing weight. For dietary/nutrition consult. A long discussion was had today with him about the need to definitively lose a substantial amount of weight, either with "natural " means (diet, porrtion control, exercise) or with gastric bypass/sleeve surgery. Pt says he was set to have the surgery at [facility], and had lost the required weight beforehand, but got sick and never had the surgery. He has very poor prognosis, with incresaed morbidity and mortality, if he does not make this change. He is essentially bedbound at home, and does very little exercise. On a positive note, he at one time lost a fairly substantial amount of weight on his own. Dietary and psychological counseling would be of benefit as an outpatient. Code(s): E66.01 - MORBID (SEVERE) OBESITY DUE TO EXCESS CALORIES (9) Sleep apnea Assessment/Plan: On CPAP Code(s): G47.30 - SLEEP APNEA, UNSPECIFIED (10) DVT (deep venous thrombosis) Assessment/Plan: on rivaroxaban. Code(s): I82.409 - ACUTE EMBOLISM AND THOMBOS UNSP DEEP VN UNSP LOWER EXTREMITY (11) [place] cardiac risk >20% in next 10 years Assessment/Plan: stress MIBI 12/2016 negative for ischemia. Pt's many risks, including morbid obesity, sedenary lifestyle, hyperlipidemiia, DM, HTN, remain challenging for pt to control. Code(s): Z91.89 - OTH PERSONAL RISK FACTORS, NOT ELSEWHERE CLASSIFIED (12) Hyperlipidemia Assessment/Plan: start atorvastatin; keep LDL cholesterol <70 mg/dL. LFTs WNL. Code(s): E78.5 - HYPERLIPIDEMIA, UNSPECIFIED (13) Leukocytosis Assessment/Plan: Assure that no new infection has occurred (on steroids since admission; afebrile ). Code(s): D72.829 - ELEVATED WHITE BLOOD CELL COUNT, UNSPECIFIED
--- NOTE | 2018-07-26 21:52 | CONSULT ---
Consult Consult Specialty:: endocrine Referred by:: tasha castillo Reason for Consultation:: hyperthyroid/goiter - History of Present Illness Chief Complaint: short of breath swollen neck History of Present Illness: 47 y/o male with a history of toxic nodular goiter,BONY, COPD(on 3L O2), diastolic CHF, anemia, UGI bleeding, HTN, hyperthyroidism, glaucoma, DVT and kidney stonesadmitted for "high potassium6.9". he was recently at [facility] where he was intubated for a pneumonia.he was sent to [facility] for rehab where he was found to have high potassium and lethargy,since admission respiratory decompensatio,requiring intubation and respiratory assistance,iv antibiotic, he has had several episode of excarcerbation of copd,he has had poor appetite and difficulty swallowing from the extensive size of thyroid goiter which contribute to BONY - Past Medical History Cardio/Vascular: Yes: CHF, Deep Vein Thrombosis, HTN, Hyperlipdemia, Other ( chronic peripheral edema) Pulmonary: Yes: Asthma, COPD, O2 Dependent (3L), Pneumonia, Sleep Apnea, Other ( BONY on bipap at night) Gastrointestinal: Yes: GI Bleed, Other (recurrent cellulitis of pannus. hernia per pt) Psych: Yes: Addictions Musculoskeletal: Yes: Chronic low back pain, Other (bilateral LE chronic edema and weakness) Endocrine: Yes: Hyperthyroidism, Other (morbid obesity thyroid goiter) Dermatology: Yes: Cellulitis, Other (chronic bilateral venostasis) Additional Medical History: BONY, morbid obesity, RUEXT DVT - Past Surgical History Past Surgical History: Yes: None - Alcohol/Substance Use Hx Alcohol Use: No History of Substance Use: reports: Cocaine - Smoking History Smoking history: Former smoker Have you smoked in the past 12 months: Yes Aproximately how many cigarettes per day: 3 If you are a former smoker, when did you quit?: 2015 (20+ pack year hx prior) - Social History Usual Living Arrangement: Alone ADL: Family Assistance (Mother moved in for some assistance) History of Recent Travel: No Home Medications - Allergies Allergies/Adverse Reactions: Allergies Allergy/AdvReac Type Severity Reaction Status Date / Time aspirin Allergy Verified 10/12/17 11:49 milk AdvReac Verified 10/12/17 11:49 mushroom Allergy Unknown Uncoded 10/12/17 11:49 TURKEY Allergy Uncoded 10/12/17 11:49 - Home Medications Home Medications: Ambulatory Orders Arformoterol Tartrate [Brovana -] 1 neb NEB BID 05/10/15 Ergocalciferol [Vitamin D2] 50,000 unit PO WEEKLY 05/10/15 Furosemide [Lasix -] 60 mg PO BID 05/10/15 Methimazole 10 mg PO DAILY 05/10/15 Rivaroxaban [Xarelto -] 20 mg PO DAILY 05/10/15 Vitamin B Complex 1 each PO DAILY 05/10/15 Timolol 0.5% [Timoptic 0.5%] 1 drop OU DAILY drops 05/15/15 Atorvastatin Ca [Lipitor] 10 mg PO DAILY 09/06/15 Albuterol 2.5/Ipratropium 0.5 [Duoneb -] 1 amp NEB QIDR amp 05/10/16 Docusate Sodium [Colace -] 300 mg PO HS capsule 10/20/17 Dorzolamide HCl [Trusopt 2% -] 1 drop OU BID drops 10/20/17 Polyethylene Glycol 3350 [Miralax 119 gm Btl -] 17 gm PO DAILY bottle 10/20/17 Dexamethasone [Decadron -] 4 mg PO BID tablet 07/26/18 Lisinopril [Prinivil] 5 mg PO DAILY tablet 07/26/18 Nystatin Oral Suspension - [Nystatin Oral Susp 407324 Units/5 ML -] 500,000 units PO Q6HPO cup 07/26/18 Pantoprazole Sodium [Protonix -] 40 mg PO BID tablet.ec 07/26/18 Family Disease History - Family Disease History Family Disease History: Heart Disease: Mother (PPM in her 60s (after fainting)) Review of Systems - Review of Systems Constitutional: reports: Lethargy, Weakness Eyes: reports: Blurred Vision HENT: reports: Difficult Swallowing, Throat Pain Neck: reports: Lumps, Swollen Glands Cardiovascular: reports: Shortness of Breath Respiratory: reports: Exercise Intolerance, Orthopnea, SOB on Exertion Gastrointestinal: reports: Bloating, Nausea Genitourinary: reports: No Symptoms Breasts: reports: No Symptoms Reported Musculoskeletal: reports: Joint Swelling, Muscle Pain, Muscle Cramps, Muscle Weakness Integumentary: reports: Pruritis Neurological: reports: Numbness, Unsteady Gait, Weakness Endocrine: reports: Unexplained Weight Gain Physical Exam Vital Signs: Vital Signs Temperature 97.9 F 07/26/18 21:41 Pulse Rate 86 07/26/18 21:41 Respiratory Rate 20 07/26/18 21:41 Blood Pressure 106/58 L 07/26/18 21:41 O2 Sat by Pulse Oximetry (%) 96 07/26/18 10:00 Constitutional: Yes: Anxious Eyes: Yes: EOM Intact HENT: Yes: Normocephalic Neck: Yes: Thyromegaly Cardiovascular: Yes: Tachycardia, Murmur Respiratory: Yes: Accessory Muscle Use, On Nasal O2, Rhonchi, Wheezes Gastrointestinal: Yes: Abdomen, Obese ...Rectal Exam: Yes: Deferred Renal/: Yes: WNL Musculoskeletal: Yes: Joint Swelling, Muscle Pain, Muscle Weakness Extremities: Yes: Delayed Capillary Refill Edema: Yes Neurological: Yes: Alert, Oriented Labs: CBC, BMP 07/26/18 06:50 07/26/18 06:50 Problem List - Problems (1) Thyrotoxicosis with diffuse goiter and without thyroid storm Code(s): E05.00 - THYROTOXICOSIS W DIFFUSE GOITER W/O THYROTOXIC CRISIS (2) Acute on chronic respiratory failure with hypoxia and hypercapnia Code(s): J96.21 - ACUTE AND CHRONIC RESPIRATORY FAILURE WITH HYPOXIA; J96.22 - ACUTE AND CHRONIC RESPIRATORY FAILURE WITH HYPERCAPNIA (3) Difficulty swallowing Code(s): R13.10 - DYSPHAGIA, UNSPECIFIED (4) Tachycardia Code(s): R00.0 - TACHYCARDIA, UNSPECIFIED (5) Abdominal pain Code(s): R10.9 - UNSPECIFIED ABDOMINAL PAIN Assessment/Plan Current Active Problems HYPERTHYROIDISM GOITER Acute on chronic respiratory failure with hypoxia and hypercapnia (Acute) Acute respiratory failure (Acute) Difficulty swallowing (Acute) Hyperlipidemia (Acute) Leukocytosis (Acute) Seizure (Acute) Tachycardia (Acute) Abnormal Lab Results 07/26/18 07/26/18 06:50 06:50 WBC 16.4 H Sodium 132 L Chloride 88 L Carbon Dioxide 39 H Anion Gap 5 L BUN 22 H Creatinine 0.5 L Random Glucose 132 H Calcium 8.4 L AST 14 L Total Protein 5.5 L Albumin 2.8 L Laboratory Results - last 24 hr 07/26/18 07/26/18 06:50 06:50 WBC 16.4 H RBC 4.41 Hgb 12.7 Hct 39.5 MCV 89.6 MCH 28.7 MCHC 32.0 RDW 15.6 Plt Count 246 MPV 7.5 Sodium 132 L Potassium 4.1 Chloride 88 L Carbon Dioxide 39 H Anion Gap 5 L BUN 22 H Creatinine 0.5 L Creat Clearance w eGFR 178.23 Random Glucose 132 H Calcium 8.4 L Total Bilirubin 0.7 AST 14 L ALT 57 Alkaline Phosphatase 100 Total Protein 5.5 L Albumin 2.8 L Laboratory Tests 07/14/18 07/14/18 07/26/18 07:55 07:55 06:50 Sodium 132 L Potassium 4.1 Chloride 88 L Carbon Dioxide 39 H Anion Gap 5 L BUN 22 H Creatinine 0.5 L Creat Clearance w eGFR 178.23 Random Glucose 132 H TSH 0.27 L D :Free T4 0.72 L Free T3 1.9 L PLAN; CONTINUE TAPAZOLE 10 MG DAY ONCE TSH OVER 5 DC TAPAZOLE ENT CONSULT FOR MASSIVE GOITER ONCE STABLE RESPIRATORY STATUS
[2018-07-27] MEDS: FUROSEMIDE 40 MG TABLET (FP) PO SCH (06:51)
[2018-07-27] MEDS: NYSTATIN 500,000 UNITS/5 ML SUSPENSION PO SCH (06:51)
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
--- NOTE | 2018-07-27 10:42 | DS ---
Physical Examination Vital Signs: Vital Signs Temperature 97 F L 07/27/18 06:15 Pulse Rate 85 07/27/18 06:15 Respiratory Rate 20 07/27/18 06:15 Blood Pressure 108/64 07/27/18 06:15 O2 Sat by Pulse Oximetry (%) 98 07/27/18 08:18 Findings/Remarks: Patient is a 47 y/o male with a history of BONY, COPD(on 3L O2), diastolic CHF, anemia, UGI bleeding, HTN, hyperthyroidism, glaucoma, DVT and kidney stones who presents for "high potassium6.9". Patient reports he was recently at [facility] where he was intubated for a pneumonia. He was transferred to [facility] for physical therapy. While there they took his labs and found that his potassium was high. He reports feeling fatigued. He denies fever, chills, chest pain, shortness of breath, nausea, vomiting and headache. pt in Ed with hypoxic respiratory failure improved on BIPAP temeporaly then his mental status deteriorated became more lethargic , hypoxic end up to be intubated in ED by Anesthesia and started on Propofol 10 and midazolam 5 and admitted to ICU Constitutional: Yes: Well Nourished, No Distress, Calm, Obese Cardiovascular: Yes: Regular Rate and Rhythm Respiratory: Yes: Regular Gastrointestinal: Yes: Normal Bowel Sounds, Soft, Abdomen, Obese Musculoskeletal: Yes: Muscle Weakness Extremities: Yes: WNL Edema: No Peripheral Pulses WNL: Yes Neurological: Yes: Alert, Oriented Psychiatric: Yes: Alert, Oriented Labs: CBC, BMP 07/26/18 06:50 07/26/18 06:50 Discharge Summary Reason For Visit: CHRONIC RESPIRATORY FAILURE WITH HYPOXIA AND HYPER Current Active Problems Acute on chronic respiratory failure with hypoxia and hypercapnia (Acute) Acute respiratory failure (Acute) Difficulty swallowing (Acute) Hyperlipidemia (Acute) Leukocytosis (Acute) Seizure (Acute) Tachycardia (Acute) Thyrotoxicosis with diffuse goiter and without thyroid storm (Acute) Hospital Course: Laboratory Last Values WBC 16.4 K/mm3 (4.0-10.0) H 07/26/18 06:50 Corrected WBC (auto) Cancelled 07/13/18 02:50 RBC 4.41 M/mm3 (4.00-5.60) 07/26/18 06:50 Hgb 12.7 GM/dL (11.7-16.9) 07/26/18 06:50 Hct 39.5 % (35.4-49) 07/26/18 06:50 MCV 89.6 fl (80-96) 07/26/18 06:50 MCH 28.7 pg (25.7-33.7) 07/26/18 06:50 MCHC 32.0 g/dl (32.0-35.9) 07/26/18 06:50 RDW 15.6 % (11.9-15.9) 07/26/18 06:50 Plt Count 246 K/MM3 (134-434) 07/26/18 06:50 MPV 7.5 fl (7.5-11.1) 07/26/18 06:50 Absolute Neuts (auto) 8.7 K/mm3 (1.5-8.0) H 07/22/18 05:30 Absolute Lymphs (auto) Cancelled 07/13/18 02:50 Absolute Monos (auto) Cancelled 07/13/18 02:50 Absolute Eos (auto) Cancelled 07/13/18 02:50 Absolute Basos (auto) Cancelled 07/13/18 02:50 Add Manual Diff Cancelled 07/13/18 02:50 Total Counted 100 07/16/18 07:40 Neutrophils % 83.6 % (42.8-82.8) H 07/22/18 05:30 Neutrophils % (Manual) 79.0 % (42.8-82.8) 07/22/18 05:30 Band Neutrophils % 3.0 % 07/22/18 05:30 Lymphocytes % 3.4 % (8-40) L D 07/22/18 05:30 Lymphocytes % (Manual) 0.0 % (8-40) L 07/22/18 05:30 Monocytes % 11.7 % (3.8-10.2) H 07/22/18 05:30 Monocytes % (Manual) 15 % (3.8-10.2) H D 07/22/18 05:30 Eosinophils % 0.9 % (0-4.5) D 07/22/18 05:30 Eosinophils % (Manual) 0.0 % (0-4.5) 07/22/18 05:30 Basophils % 0.4 % (0-2.0) D 07/22/18 05:30 Basophils % (Manual) 0.0 % (0-2.0) 07/22/18 05:30 Myelocytes % (Man) 2 % (0-2) D 07/22/18 05:30 Promyelocytes % (Man) 0 % (0-2) 07/22/18 05:30 Blast Cells % (Manual) 0 % (0-0) 07/22/18 05:30 Nucleated RBC % 0 % (0-0) 07/22/18 05:30 Metamyelocytes 0 % (0-2) 07/22/18 05:30 Hypochromia 0 07/22/18 05:30 Platelet Estimate Normal 07/22/18 05:30 Platelet Comment Cancelled 07/13/18 02:50 Normal RBC Morphology Cancelled 07/13/18 02:50 Polychromasia 0 07/22/18 05:30 Poikilocytosis 0 07/22/18 05:30 Anisocytosis 0 07/22/18 05:30 Microcytosis 0 07/22/18 05:30 Macrocytosis 0 07/22/18 05:30 Stomatocytes 2+ 07/22/18 05:30 PT with INR 17.30 SEC (9.7-13.0) H 07/13/18 07:00 INR 1.46 (0.83-1.09) H 07/13/18 07:00 PTT (Actin FS) 34.0 SECONDS (25.2-36.5) 07/13/18 07:00 Anticoagulation Therapy No Result Required. 07/14/18 06:30 Puncture Site Right radial 07/14/18 10:20 ABG pH 7.53 (7.35-7.45) H 07/14/18 10:20 ABG pCO2 at Pt Temp 46.6 mmHg (35-45) H 07/14/18 10:20 ABG pO2 at Pt Temp 69.3 mmHg (80-105) L 07/14/18 10:20 ABG HCO3 38.4 mmol/L (22-27) H 07/14/18 10:20 ABG O2 Sat (Measured) 94.6 % (95-98) L 07/14/18 10:20 ABG O2 Content 16.8 % vol (15-22) 07/14/18 10:20 ABG Base Excess 13.7 meq/l (-2-2) H 07/14/18 10:20 Orlin Test Positive 07/14/18 10:20 Carboxyhemoglobin 1.6 % (0-2) 07/12/18 16:20 Methemoglobin 0.5 % (0-2) 07/12/18 16:20 O2 Delivery Device Mech vent 07/14/18 10:20 Oxygen Flow Rate 50% 07/14/18 10:20 Vent Mode Cpap 07/14/18 10:20 Vent Rate 12 07/14/18 10:20 Mechanical Rate Yes 07/14/18 10:20 PEEP 5.0 cmH2O 07/14/18 10:20 Pressure Support Vent 1007/14/18 10:20 Sodium 132 mmol/L (136-145) L 07/26/18 06:50 Potassium 4.1 mmol/L (3.5-5.1) 07/26/18 06:50 Chloride 88 mmol/L (98-107) L 07/26/18 06:50 Carbon Dioxide 39 mmol/L (21-32) H 07/26/18 06:50 Anion Gap 5 MMOL/L (8-16) L 07/26/18 06:50 BUN 22 mg/dL (7-18) H 07/26/18 06:50 Creatinine 0.5 mg/dL (0.55-1.3) L 07/26/18 06:50 Creat Clearance w eGFR 178.23 (>60) 07/26/18 06:50 POC Glucometer 139 UNITS (80-120) 07/13/18 01:25 Random Glucose 132 mg/dL (74-106) H 07/26/18 06:50 Lactic Acid 1.7 mmol/L (0.4-2.0) 07/13/18 07:00 Calcium 8.4 mg/dL (8.5-10.1) L 07/26/18 06:50 Phosphorus 3.6 mg/dL (2.5-4.9) 07/16/18 07:40 Magnesium 2.1 mg/dL (1.8-2.4) 07/16/18 07:40 Total Bilirubin 0.7 mg/dL (0.2-1) 07/26/18 06:50 AST 14 U/L (15-37) L 07/26/18 06:50 ALT 57 U/L (13-61) 07/26/18 06:50 Alkaline Phosphatase 100 U/L (45-117) 07/26/18 06:50 Creatine Kinase 36 U/L (26-308) 07/13/18 07:56 Troponin I < 0.02 ng/ml (0.00-0.05) 07/13/18 07:56 B-Natriuretic Peptide 124.7 pg/ml (5-125) 07/13/18 07:56 Total Protein 5.5 g/dl (6.4-8.2) L 07/26/18 06:50 Albumin 2.8 g/dl (3.4-5.0) L 07/26/18 06:50 TSH 0.27 uIU/ml (0.358-3.74) L D 07/14/18 07:55 Free T4 0.72 ng/dl (0.76-1.16) L 07/14/18 07:55 Free T3 1.9 pg/ml (2.0-4.4) L 07/14/18 07:55 Urine Color Yellow 07/12/18 01:57 Urine Appearance Clear 07/12/18 01:57 Urine pH 8.5 (5.0-8.0) H D 07/12/18 01:57 Ur Specific [place] 1.020 (1.010-1.035) 07/12/18 01:57 Urine Protein 1+ (NEGATIVE) H 07/12/18 01:57 Urine Glucose (UA) Negative (NEGATIVE) 07/12/18 01:57 Urine Ketones 2+ (NEGATIVE) H 07/12/18 01:57 Urine Blood Negative (NEGATIVE) 07/12/18 01:57 Urine Nitrite Negative (NEGATIVE) 07/12/18 01:57 Urine Bilirubin Negative (NEGATIVE) 07/12/18 01:57 Urine Urobilinogen 1.0 mg/dL (0.2-1.0) 07/12/18 01:57 Ur Leukocyte Esterase Negative (NEGATIVE) 07/12/18 01:57 Urine WBC (Auto) 2 /hpf (0-5) 07/12/18 01:57 Urine RBC (Auto) 1 /hpf (0-4) 07/12/18 01:57 Urine Casts (Auto) 2 /hpf (0-8) 07/12/18 01:57 U Epithel Cells (Auto) 2 /HPF (0-5) 07/12/18 01:57 Urine Crystals (Auto) 0 /hpf 07/12/18 01:57 Urine Bacteria (Auto) 4 /hpf (NEGATIVE) 07/12/18 01:57 Urine Yeast (Auto) 0 (NEGATIVE) 07/12/18 01:57 Vancomycin Pre-Dose 15.9 ug/ml (18-26) L 07/18/18 08:48 Influenza A (Rapid) Negative 07/13/18 18:43 Influenza B (Rapid) Negative 07/13/18 18:43 Microbiology 07/13/18 07:15 Blood - Peripheral Venous Blood Culture - Final NO GROWTH AFTER 5 DAYS INCUBATION 07/13/18 07:00 Blood - Peripheral Venous Blood Culture - Final NO GROWTH AFTER 5 DAYS INCUBATION 07/13/18 16:30 Sputum - Endotrachea Suction/Ventilator Gram Stain - Final 07/13/18 16:30 Sputum - Endotrachea Suction/Ventilator Sputum Culture - Final S Aureus 07/12/18 12:15 Urine For Antigen Detection Legionella Antigen - Final 07/12/18 12:15 Urine For Antigen Detection Streptococcus pneumoniae Antigen (M - Final Vital Signs Temp 97 F L 07/27/18 06:15 Pulse 85 07/27/18 06:15 Resp 20 07/27/18 06:15 BP 108/64 07/27/18 06:15 Pulse Ox 98 07/27/18 08:18 Intake & Output 07/26/18 07/26/18 07/27/18 11:59 23:59 11:59 Intake Total 180 600 120 Output Total 850 400 Balance 180 -250 -280 Weight 156.898 kg 156.943 kg Intake: Oral 180 600 120 Output: Urine 850 400 Void 850 400 Other: Voiding Method Urinal Urinal Incontinent # Unmeasured Voids Void 340 1 Bowel Movement Yes # Bowel Movements 2 Weight Measurement [facility]: Stable - Instructions Diet, Activity, Other Instructions: -Low sodium low calorie diabetic diet -Taper Decadron: 4mg po BID x 2 days, then 4 mg po daily for 3 days, then 2 mg po daily for 3 days, then stop Referrals: Michael Schmidt MD [Staff Physician] - Kirby Hannon MD [Staff Physician] - Disposition: ASSISTED FACILITY - Home Medications Comprehensive Discharge Medication List: Ambulatory Orders Arformoterol Tartrate [Brovana -] 1 neb NEB BID 05/10/15 Ergocalciferol [Vitamin D2] 50,000 unit PO WEEKLY 05/10/15 Furosemide [Lasix -] 60 mg PO BID 05/10/15 Methimazole 10 mg PO DAILY 05/10/15 Rivaroxaban [Xarelto -] 20 mg PO DAILY 05/10/15 Vitamin B Complex 1 each PO DAILY 05/10/15 Timolol 0.5% [Timoptic 0.5%] 1 drop OU DAILY drops 05/15/15 Atorvastatin Ca [Lipitor] 10 mg PO DAILY 09/06/15 Albuterol 2.5/Ipratropium 0.5 [Duoneb -] 1 amp NEB QIDR amp 05/10/16 Docusate Sodium [Colace -] 300 mg PO HS capsule 10/20/17 Dorzolamide HCl [Trusopt 2% -] 1 drop OU BID drops 10/20/17 Polyethylene Glycol 3350 [Miralax 119 gm Btl -] 17 gm PO DAILY bottle 10/20/17 Dexamethasone [Decadron -] 4 mg PO BID tablet 07/26/18 Lisinopril [Prinivil] 5 mg PO DAILY tablet 07/26/18 Nystatin Oral Suspension - [Nystatin Oral Susp 093551 Units/5 ML -] 500,000 units PO Q6HPO cup 07/26/18 Pantoprazole Sodium [Protonix -] 40 mg PO BID tablet.ec 07/26/18
[2018-07-27] MEDS: DEXAMETHASONE 4 MG TABLET (FP) PO SCH (11:10)
[2018-07-27] MEDS: LISINOPRIL 5 MG TABLET (FP) PO SCH (11:10)
[2018-07-27] MEDS: RIVAROXABAN 20 MG TABLET PO SCH (11:10)
[2018-07-27] MEDS: METHIMAZOLE 10 MG TABLET (FP) PO SCH (11:10)
[2018-07-27] MEDS: PANTOPRAZOLE 40 MG TABLET (FP) PO SCH (11:10)
[2018-07-27 11:12] VITALS: BP 114/72; PULSE 88; TEMP 98.9
== END 2018-07-27 13:39 | DRG 208 ==
LOC: JER 12:49 → JERBED 19:53 → JICU 07-13 02:43 → J4W 07-15 17:45
PROVIDERS: ADMIT Internal Medicine; ATTEND Family Medicine
PROC: 0BH17EZ Insertion of Endotracheal Airway into Trachea, Via Natural or Artificial Opening (ICD-10-PCS; principal; 2018-07-13)
PROC: 5A1945Z Respiratory Ventilation, 24-96 Consecutive Hours (ICD-10-PCS; 2018-07-13)
PROC: 0CJS8ZZ Inspection of Larynx, Via Natural or Artificial Opening Endoscopic (ICD-10-PCS; 2018-07-18)
DX: J96.22 Acute and chronic respiratory failure with hypercapnia (principal); G93.41 Metabolic encephalopathy; J18.9 Pneumonia, unspecified organism; I50.33 Acute on chronic diastolic (congestive) heart failure; Z68.43 Body mass index [BMI] 50.0-59.9, adult; E87.2 Acidosis; J98.11 Atelectasis; E66.2 Morbid (severe) obesity with alveolar hypoventilation; J44.1 Chronic obstructive pulmonary disease with (acute) exacerbation; I47.2 Ventricular tachycardia; I11.0 Hypertensive heart disease with heart failure; D69.6 Thrombocytopenia, unspecified; J39.8 Other specified diseases of upper respiratory tract; G47.33 Obstructive sleep apnea (adult) (pediatric); E87.5 Hyperkalemia; D64.9 Anemia, unspecified; E78.5 Hyperlipidemia, unspecified; M54.5 Low back pain; E66.01 Morbid (severe) obesity due to excess calories; H40.9 Unspecified glaucoma; R50.9 Fever, unspecified; I27.20 Pulmonary hypertension, unspecified; E11.9 Type 2 diabetes mellitus without complications; R60.0 Localized edema; R56.9 Unspecified convulsions; R13.10 Dysphagia, unspecified; E04.8 Other specified nontoxic goiter; D72.829 Elevated white blood cell count, unspecified; E05.00 Thyrotoxicosis with diffuse goiter without thyrotoxic crisis or storm; Z87.891 Personal history of nicotine dependence; Z86.718 Personal history of other venous thrombosis and embolism
CPT/HCPCS: 36415; 36600; 70490-TC; 71045-TC-FY; 71250-TC; 80048; 80053; 81003; 82375; 82550; 82803; 82962; 83050; 83605; 83735; 83880; 84100; 84439; 84443; 84481; 84484; 85025; 85027; 85610; 85730; 87040; 87070; 87186; 87205; 87804; 87899; 90732; 93005; 93010; 93306-TC; 94002; 94010; 94640; 94660; 97116-GP; 97162-GP; 99285-25; G0009; G0480; J0131; J1100

== ENCOUNTER 2019-01-09 17:04 | Inpatient (IN) | payer OTHER ==
--- NOTE | 2019-01-09 17:46 | PDOC ---
History of Present Illness - History of Present Illness Initial Comments: 01/09/19 18:33 48yo M hx morbid obesity, BONY, COPD (on 3L O2 at home), diastolic HF, anemia, UGI bleeding, HTN, hyperthyroidism, glaucoma, DVTs (UEs, on Xeralta), kidney stones, previous intubations, previous PNA, and previous episodes of acute on chronic respiratory failure with hypoxia and hypercapnia, presents from [facility] c/ o acute on chronic CP, back pain, and RLE pain. Pt is poor historian and states he gets confused sometimes. Pt c/o pain all over, worst in chest, back, and RLE. States all pains have been present for weeks to months, intermittent, worsening, but [facility] didn't send him in until now. States back pain makes chest pain worse which makes breathing difficult. Chest pain sternal, intermittent, worse with movement. Back pain diffuse, intermittent, worse with movement. SOB worse when CP worse, with lying down, and when sitting straight up, better when reclining 45 degrees. States has not been able to move RLE for 3 months, unknown why, and RLE has been cold and painful for unknown amount of time, worse with palpation. States R thumb is also newly black with decreased sensation to touch. Endorses decreased sensation of b/l feet of unknown duration. Endorses lightheadedness of unknown duration, palpitations, and leg swelling worsening b/l. Endorses nausea. Does not want opioids for pain but requests tramadol. Denies PEDRAZA, vision changes, cough, abdominal pain, vomiting, dysuria, hematuria, D/C, blood in stool. Endorses inability to walk/stand ( chronic). <Fior Naylor - Last Filed: 01/11/19 20:55> <Rubia Ortiz - Last Filed: 01/18/19 09:26> - General Stated Complaint: CHEST PAIN Time Seen by Provider: 01/09/19 17:16 Past History - Past Medical History Anemia: Yes Asthma: Yes Cancer: No Cardiac Disorders: Yes (CHF) CVA: No COPD: Yes (O2 dependent 3-5LPM N/C, bipap at night) CHF: Yes Dementia: No Diabetes: No GI Disorders: Yes (UGI bleed) Disorders: No HTN: Yes Hypercholesterolemia: No Liver Disease: No Seizures: Yes Thyroid Disease: Yes - Surgical History Abdominal Surgery: Yes (corterize abdominal bleed) Appendectomy: No Cardiac Surgery: No Cholecystectomy: No Lung Surgery: No Neurologic Surgery: No Orthopedic Surgery: No - Immunization History Immunization Up to Date: Yes - Psycho Social/Smoking Cessation Hx Smoking Status: No Smoking History: Former smoker Have you smoked in the past 12 months: Yes Number of Cigarettes Smoked Daily: 3 If you are a former smoker, when did you quit?: 2016 (20+ pack year hx prior) 'Breaking Loose' booklet given: 10/13/17 Hx Alcohol Use: No Drug/Substance Use Hx: No Substance Use Type: None Hx Substance Use Treatment: No <Fior Naylor - Last Filed: 01/11/19 20:55> <Rubia Ortiz - Last Filed: 01/18/19 09:26> - Past Medical History Allergies/Adverse Reactions: Allergies Allergy/AdvReac Type Severity Reaction Status Date / Time aspirin Allergy Verified 10/12/17 11:49 lactose AdvReac Verified 01/11/19 13:37 mushroom Allergy Unknown Uncoded 10/12/17 11:49 TURKEY Allergy Uncoded 10/12/17 11:49 Home Medications: Ambulatory Orders Ergocalciferol [Vitamin D2] 50,000 unit PO WEEKLY 05/10/15 Furosemide [Lasix -] 40 mg PO BID 05/10/15 Methimazole 10 mg PO DAILY 05/10/15 Rivaroxaban [Xarelto -] 20 mg PO DAILY 05/10/15 Vitamin B Complex 1 each PO DAILY 05/10/15 Timolol 0.5% [Timoptic 0.5%] 1 drop OU DAILY drops 05/15/15 Atorvastatin Ca [Lipitor] 10 mg PO DAILY 09/06/15 Albuterol 2.5/Ipratropium 0.5 [Duoneb -] 1 amp NEB QIDR amp 05/10/16 Dorzolamide HCl [Trusopt 2% -] 1 drop OU BID drops 10/20/17 Dexamethasone [Decadron -] 4 mg PO BID tablet 07/26/18 Lisinopril [Prinivil] 5 mg PO DAILY tablet 07/26/18 Nystatin Oral Suspension - [Nystatin Oral Susp 523579 Units/5 ML -] 500,000 units PO Q6HPO cup 07/26/18 Acetaminophen 650 mg PO QID PRN 01/09/19 Omeprazole 20 mg PO DAILY 01/09/19 Tramadol HCl [Ultram] 50 mg PO BID PRN 01/09/19 Review of Systems - Review of Systems Comments:: 01/09/19 18:33 Constitutional: Negative for chills, fever, fatigue. HENT: Positive for L ear deafness (chronic). Negative for sore throat, rhinorrhea, congestion. Eyes: Negative for visual disturbance. Respiratory: Positive for shortness of breath. Negative for cough, and wheezing. Cardiovascular: Positive for chest pain and leg swelling. Negative for palpitations, and leg swelling. Gastrointestinal: Positive for nausea. Negative for abdominal pain, blood in stool, constipation, diarrhea, and vomiting. Genitourinary: Negative for dysuria, flank pain, and hematuria. Musculoskeletal: Positive for back pain and "whole body" pain. Negative for myalgias, and neck pain. Skin: Positive for dark discoloration of R thumb and BLEs, BLE swelling, cold RLE. Neurological: Positive for lightheadedness, RLE weakness, inability to walk, decreased sensation b/l feet and R thumb. Negative for dizziness, syncope, and headaches. Psychiatric/Behavioral: Negative for behavioral problems and confusion. <Fior Naylor - Last Filed: 01/11/19 20:55> *Physical Exam - Physical Exam Comments: 01/09/19 18:33 Gen: Alert, morbidly obese, uncomfortable-appearing. HEENT: PERRL, EOMI, MMM, NCAT. No conjunctival pallor. Sclera are non-icteric. CV: Tachycardic, regular rhythm. No murmurs, rubs, or gallops. PULM: Good air movement, using accessory muscles. CTAB, no wheezes, rales, or rhonchi. ABD: protuberant, large pannus, soft, NT/ND, no rebound tenderness or guarding, no CVA tenderness. BACK: No TTP of c/t/l-spine. No step-offs or deformities. MSK: No bony deformities. 2+ pulses in all extremities. NEURO: AAOx3. PERRL. L ear deafness, speech not completely clear, no other gross CN deficits. 5/5 strength BUEs and LLE, 1/5 strength RLE (x 3mo), diminished sensation to light tough in b/l feet and R thumb, unable to stand or walk EXTREMITIES: No cyanosis. No clubbing. b/l chronic venous stasis, minimal PE, TTP RLE and LLE overlying venous stasis areas. Darkened R thumb. PSYCH: Normal mood and thought pattern. SKIN: Warm and dry except cool RLE. Delayed capillary refill in LEs. Darkened R thumb and BLEs. No jaundice. R groin wound. <Fior Naylor - Last Filed: 01/11/19 20:55> - Vital Signs Last Vital Signs Temp Pulse Resp BP Pulse Ox 98.2 F 109 H 20 116/54 L 96 01/18/19 03:00 01/18/19 05:00 01/18/19 05:00 01/18/19 05:00 01/18/19 04:00 <Rubia Ortiz - Last Filed: 01/18/19 09:26> Heart Score/ECG Review - ECG Impressions Comment:: 01/09/19 19:31 1741: sinus tachycardia, 104bpm, QTc 415ms, low voltage QRS, no TWIs, no ST elevations or depressions, possible lateral infarct age undetermined, poor data quality but appears significant changes compared to 07/17/18 <Fior Naylor - Last Filed: 01/11/19 20:55> ED Treatment Course - LABORATORY CBC & Chemistry Diagram: 01/11/19 05:50 01/11/19 05:50 - RADIOLOGY Radiology Studies Ordered: Category Date Time Status CHEST X-RAY PORTABLE* [RAD] Stat Radiology 01/09/19 17:42 Ordered <Fior Naylor - Last Filed: 01/11/19 20:55> - LABORATORY CBC & Chemistry Diagram: 01/18/19 05:15 01/18/19 05:15 - ADDITIONAL ORDERS Additional order review: 01/09/19 23:02 Urine Culture - Final Urine - Urine Clean Catch Proteus Mirabilis 01/09/19 17:55 RBC 4.77 MCV 95.5 MCHC 33.1 RDW 14.3 MPV 7.4 L Neutrophils % 90.0 H Lymphocytes % 5.6 L D Monocytes % 4.1 Eosinophils % 0.1 D Basophils % 0.2 - Medications Given in the ED: ED Medications Discontinued Medications Generic Name Dose Route Start Last Admin Trade Name Long PRN Reason Stop Dose Admin Albuterol/Ipratropium 1 amp 01/09/19 18:01 01/09/19 18:51 Duoneb - NEB 01/09/19 18:02 1 amp ONCE ONE Administration Albuterol/Ipratropium 1 amp 01/10/19 00:30 01/14/19 11:50 Duoneb - NEB 1 amp RQID PALLAVI Administration Atorvastatin Calcium 10 mg 01/10/19 22:00 01/13/19 22:36 Lipitor - PO 10 mg HS PALLAVI Administration Dexamethasone 4 mg 01/10/19 10:00 01/11/19 00:11 Decadron - PO 4 mg BID PALLAVI Administration Dorzolamide HCl 1 drop 01/10/19 10:00 01/14/19 11:50 Trusopt 2% OU Not Given BID PALLAVI Furosemide 40 mg 01/09/19 19:10 01/09/19 19:55 Lasix Injection - IVPUSH 01/09/19 19:11 40 mg ONCE ONE Administration Furosemide 40 mg 01/10/19 06:00 01/10/19 06:49 Lasix - PO Not Given BID@0600,1430 PALLAVI Furosemide 40 mg 01/10/19 14:00 01/13/19 06:26 Lasix Injection - IVPUSH 40 mg BID@0600,1400 PALLAVI Administration Furosemide 60 mg 01/13/19 14:00 01/14/19 06:30 Lasix Injection - IVPUSH 60 mg BID@0600,1400 PALLAVI Administration Furosemide 40 mg 01/15/19 06:00 01/15/19 06:38 Lasix Injection - IVPB Not Given BIDLASIX PALLAVI Furosemide 100 mg 01/17/19 18:30 01/17/19 18:07 Lasix Injection - IVPB 01/17/19 18:31 100 mg ONCE ONE Administration Ceftriaxone Sodium 1 gm/ 50 mls @ 100 mls/hr 01/10/19 00:35 01/10/19 01:10 Dextrose IVPB 01/10/19 01:04 100 mls/hr ONCE ONE Administration Piperacillin Sod/Tazobactam 100 mls @ 200 mls/hr 01/10/19 13:30 01/12/19 09: 05 Sod 4.5 gm/ Dextrose IVPB 200 mls/hr Q8H-IV PALLAVI Administration Protocol Vancomycin HCl 1,250 mg/ 250 mls @ 166.667 mls/hr 01/10/19 13:30 01/12/19 15: 07 Dextrose IVPB 166.667 mls/hr Q12H PALLAVI Administration Protocol Vancomycin HCl 1,250 mg/ 250 mls @ 166.667 mls/hr 01/13/19 03:00 01/13/19 02: 59 Sodium Chloride IVPB 166.667 mls/hr Q12H PALLAVI Administration Protocol Piperacillin Sod/Tazobactam 100 mls @ 200 mls/hr 01/12/19 18:00 01/14/19 11: 49 Sod 4.5 gm/ Sodium Chloride IVPB 200 mls/hr Q8H-IV PALLAVI Administration Protocol Sodium Chloride 1,000 mls @ 42 mls/hr 01/14/19 12:00 01/14/19 14:01 Normal Saline - IV 42 mls/hr ASDIR PALLAVI Administration Sodium Chloride 500 mls @ 500 mls/hr 01/14/19 12:34 01/14/19 12:49 Normal Saline - IV 01/14/19 13:33 500 mls/hr ASDIR STA Administration Sodium Chloride 1,000 mls @ 42 mls/hr 01/14/19 14:02 01/14/19 17:27 Normal Saline - IV 42 mls/hr ASDIR PALLAVI Administration Sodium Chloride 500 mls @ 500 mls/hr 01/14/19 15:43 01/14/19 17:28 Normal Saline - IV 01/14/19 16:42 500 mls/hr ASDIR STA Administration Norepinephrine Bitartrate 8, 500 mls @ 17.1 mls/hr 01/14/19 22:15 01/16/19 01 :57 000 mcg/ Dextrose IV 0.11 mcg/kg/min ASDIR PALLAVI 63 mls/hr Titration Protocol 0.03 MCG/KG/MIN Sodium Chloride 500 mls @ 500 mls/hr 01/15/19 08:44 01/15/19 09:59 Normal Saline - IV 01/15/19 09:43 500 mls/hr ASDIR STA Administration Potassium Chloride 10 meq in 100 mls @ 100 mls/hr 01/15/19 10:15 01/15/19 14: 24 Potassium Chloride 10 Meq Premix Ivpb - IVPB 01/15/19 13:14 100 mls/hr Q60M PALLAVI Administration Sodium Chloride 1,000 mls @ 75 mls/hr 01/15/19 10:45 01/16/19 06:50 Normal Saline - IV 75 mls/hr ASDIR PALLAVI Administration Sodium Chloride 500 mls @ 500 mls/hr 01/15/19 10:34 01/15/19 11:03 Normal Saline - IV 01/15/19 11:33 500 mls/hr ASDIR STA Administration Norepinephrine Bitartrate 8, 500 mls @ 0.11 mls/hr 01/15/19 17:40 01/15/19 18 :34 000 mcg/ Dextrose IV 0.03 mcg/min ASDIR PALLAVI 0.11 mls/hr Administration Protocol 0.03 MCG/MIN Norepinephrine Bitartrate 8, 500 mls @ 17.13 mls/hr 01/15/19 19:00 01/16/19 03:38 000 mcg/ Dextrose IV 0.13 mcg/kg/min TITR PALLAVI 75 mls/hr Administration Protocol 0.03 MCG/KG/MIN Norepinephrine Bitartrate 8, 500 mls @ 0.11 mls/hr 01/16/19 06:21 01/18/19 06 :22 000 mcg/ Dextrose IV 20 mcg/min TITR PALLAVI 75 mls/hr Administration Protocol 0.03 MCG/MIN Potassium Chloride 10 meq in 100 mls @ 100 mls/hr 01/16/19 07:30 01/16/19 10: 24 Potassium Chloride 10 Meq Premix Ivpb - IVPB 01/16/19 10:29 100 mls/hr Q60M PALLAVI Administration Amino Acids 1,000 mls @ 84 mls/hr 01/16/19 10:00 01/16/19 13:38 Clinimix - IV 84 mls/hr Q12H PALLAVI Administration Sodium Chloride 1,000 mls @ 75 mls/hr 01/16/19 20:15 01/17/19 01:22 Normal Saline - IV 75 mls/hr ASDIR PALLAVI Administration Potassium Chloride 10 meq in 100 mls @ 100 mls/hr 01/17/19 08:00 01/17/19 08: 39 Potassium Chloride 10 Meq Premix Ivpb - IVPB 01/17/19 09:59 100 mls/hr Q60M PALLAVI Administration Vasopressin 50 units/ Sodium 100 mls @ 4 mls/hr 01/17/19 15:15 01/18/19 04:36 Chloride IVPB 0 units/hr ASDIR PALLAVI 0 mls/hr Titration Protocol 2 UNITS/HR Insulin Aspart 1 vial 01/12/19 07:00 01/14/19 14:00 Novolog Vial Sliding Scale - SQ Not Given ACHS PALLAVI Protocol Insulin Detemir 10 units 01/12/19 22:00 01/13/19 22:36 Levemir Vial SQ 10 units HS PALLAVI Administration Insulin Detemir 10 units 01/12/19 11:14 01/12/19 12:03 Levemir Vial SQ 01/12/19 11:15 10 units ONCE ONE Administration Insulin Detemir 20 units 01/14/19 07:00 01/14/19 06:33 Levemir Vial SQ 20 units AM PALLAVI Administration Lisinopril 5 mg 01/10/19 10:00 01/10/19 11:30 Prinivil PO Not Given DAILY PALLAVI Lisinopril 5 mg 01/14/19 10:00 01/14/19 11:49 Prinivil PO Not Given DAILY PALLAVI Magnesium Sulfate 2 gm 01/15/19 10:37 01/15/19 11:03 Magnesium Sulfate IVPB 01/15/19 10:38 2 gm ONCE ONE Administration Methimazole 10 mg 01/10/19 10:00 01/13/19 09:27 Tapazole - PO 10 mg DAILY PALLAVI Administration Methylprednisolone Sodium Succinate 40 mg 01/12/19 00:00 01/13/19 09:27 Solu-Medrol - IVPUSH 40 mg Q6H-IV PALLAVI Administration Multi-Ingredient Lotion 1 applic 01/12/19 12:28 01/13/19 15:30 Eucerin (Large Jar) - TP 1 applic BID PRN Administration DRY SKIN Nystatin 500,000 units 01/12/19 18:00 01/14/19 13:10 Nystatin Oral Suspension - PO Not Given Q6HPO PALLAVI Pantoprazole Sodium 20 mg 01/10/19 07:00 01/12/19 06:02 Protonix - PO 20 mg ACBK PALLAVI Administration Potassium Chloride 40 meq 01/14/19 14:02 01/14/19 17:29 K-Dur - PO 01/14/19 14:03 40 meq ONCE ONE Administration Potassium Chloride 20 meq 01/14/19 20:45 01/15/19 00:08 Potassium Chloride 20 Meq Premix Ivpb - IVPB 01/14/19 22:46 20 meq Q60M PALLAVI Administration Potassium Chloride 20 meq 01/16/19 07:25 01/16/19 19:43 Potassium Chloride 20 Meq Premix Ivpb - IVPB 01/16/19 07:26 Not Given ONCE ONE Prednisone 30 mg 01/10/19 10:00 01/12/19 11:33 Deltasone - PO 01/16/19 23:59 Not Given DAILY PALLAVI Rivaroxaban 20 mg 01/10/19 06:00 01/10/19 06:49 Xarelto PO Not Given DAILY@0600 [facility] Rivaroxaban 20 mg 01/10/19 06:40 01/13/19 17:14 Xarelto PO 20 mg DAILY@1800 [facility] Administration Tolvaptan 30 mg 01/16/19 19:45 01/16/19 22:10 Samsca (Restricted To Nephrology/Cardiology) PO 01/16/19 19:46 Not Given DAILY [facility] Tolvaptan 15 mg 01/16/19 20:15 01/16/19 21:46 Samsca (Restricted To Nephrology/Cardiology) PO 01/16/19 20:16 15 mg DAILY PALLAVI Administration Tramadol HCl 50 mg 01/09/19 18:08 01/09/19 18:51 Ultram - PO 01/09/19 18:09 50 mg ONCE ONE Administration Tramadol HCl 50 mg 01/10/19 00:23 01/13/19 13:52 Ultram - PO 50 mg BID PRN Administration PAIN LEVEL 7 - 10 <Rubia Ortiz - Last Filed: 01/18/19 09:26> Medical Decision Making - Medical Decision Making 01/09/19 18:33 48yo M hx morbid obesity, BONY, COPD (on 3L O2 at home), diastolic HF, anemia, UGI bleeding, HTN, hyperthyroidism, glaucoma, DVTs (UEs, on Xeralta), kidney stones, previous intubations, previous PNA, and previous episodes of acute on chronic respiratory failure with hypoxia and hypercapnia, presents from [facility] c/ o acute on chronic CP, back pain, and RLE pain. Pt is poor historian and states he gets confused sometimes. Pt c/o pain all over, worst in chest, back, and RLE. States all pains have been present for weeks to months, intermittent, worsening, but [facility] didn't send him in until now. States back pain makes chest pain worse which makes breathing difficult. Chest pain sternal, intermittent, worse with movement. Back pain diffuse, intermittent, worse with movement. SOB worse when CP worse, with lying down, and when sitting straight up, better when reclining 45 degrees. States has not been able to move RLE for 3 months, unknown why, and RLE has been cold and painful for unknown amount of time, worse with palpation. States R thumb is also newly black with decreased sensation to touch. Endorses decreased sensation of b/l feet of unknown duration. Endorses lightheadedness of unknown duration, palpitations, and leg swelling worsening b/l. Endorses nausea. Does not want opioids for pain but requests tramadol. Denies PEDRAZA, vision changes, cough, abdominal pain, vomiting, dysuria, hematuria, D/C, blood in stool. Endorses inability to walk/stand ( chronic). VS: Sat 100% on 3L NC (home O2), tachycardic 110s, BP 100s/60s (baseline 100s-110s/ 60s-80s), tachypneic, afebrile. PE: +morbid obesity, appears uncomfortable in pain +L ear deafness, speech not completely clear +good air movement in all lung olson, using accessory muscles +protuberant, large pannus +b/l chronic venous stasis, minimal PE, RLE cooler than LLE, TTP RLE and LLE overlying venous stasis areas +black thumb 1/5 strength RLE (x 3mo), diminished sensation to light tough in b/l feet and R thumb, unable to stand or walk ROS: CP, palpitations, SOB, back pain, lightheadedness, nausea, RLE weakness, inability to walk, decreased sensation b/l feet and R thumb, cold RLE Concern for PE, dissection, CHF exac, COPD exac, ACS/MS, hypoxic respiratory failure Concern for acute leg ischemia, DVT, metabolic derangement Plan: -CBC, CMP, Mg, Phos, Cardiac profile, BNP, Coags, ABG -EKG -Portable CXR -Pending Cr > CT PE/dissection w/contrast. -US arterial and venous b/l LEs and UEs -Duonebs -Dispo: adm pending w/u EKG reviewed. CXR done - poor inspiratory effort. CXR reviewed. Limited study w/b/l pleural effusions and bibasilar consolidation/atelectasis. 01/09/19 19:04 US LEs done. Will need to go to US department for UEs. Will send there straight from [place]. Labs reviewed. CTA ordered to r/o PE and dissection. 01/09/19 19:05 Na 123. 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 Lasix ordered. d/c NS. Labs reviewed. Of note, BNP 105.2, Trop <0.02. 01/09/19 19:[address] PUENTES. Needs IV US for CT. Pending CT and US and ABG, admit. Pending US reads, consider heparin for arterial blood flow in RLE. Repeat CXR reviewed. No significant changes compared to first CXR, still poor inspiratory effort. <Fior Naylor - Last Filed: 01/11/19 20:55> *DC/Admit/Observation/Transfer - Discharge Dispostion Decision to Admit order: Yes <Fior Naylor - Last Filed: 01/11/19 20:55> <Rubia Ortiz - Last Filed: 01/18/19 09:26> Diagnosis at time of Disposition: Acute exacerbation of chronic obstructive pulmonary disease (COPD), Tachycardia , Right leg pain, Morbid obesity, Poor perfusion of leg, Hyponatremia Lower back pain Qualifiers: Chronicity: acute Back pain laterality: midline Sciatica presence: without sciatica Qualified Code(s): M54.5 - Low back pain - Discharge Dispostion Condition at time of disposition: Stable Discharge - Discharge Information Problems reviewed: Yes - Admission Yes <Fior Naylor - Last Filed: 01/11/19 20:55> <Rubia Ortiz - Last Filed: 01/18/19 09:26> - Discharge Information Clinical Impression/Diagnosis: Acute exacerbation of chronic obstructive pulmonary disease (COPD), Tachycardia , Right leg pain, Morbid obesity, Poor perfusion of leg, Hyponatremia Lower back pain Qualifiers: Chronicity: acute Back pain laterality: midline Sciatica presence: without sciatica Qualified Code(s): M54.5 - Low back pain Condition: Stable
[2019-01-09] MEDS ORDERED: ALBUTEROL SO4 2.5/IPRATROPIUM 0.5 INH SOL 3 ML VIAL.NEB. NEB ONE ×2 (18:01→18:37)
[2019-01-09] MEDS ORDERED: traMADol HCL 50 MG TABLET PO ONE (18:08)
[2019-01-09 18:12] LABS: BASO % 0.2 % (0-2.0); EOS % 0.1 % (0-4.5); HEMATOCRIT 45.6 % (35.4-49); HEMOGLOBIN 15.1 GM/dL (11.7-16.9); LYMPH % 5.6 % (8-40); MCH 31.6 pg (25.7-33.7); MCHC 33.1 g/dl (32.0-35.9); MEAN CELL VOLUME 95.5 fl (80-96); MEAN PLT VOLUME 7.4 fl (7.5-11.1); MONO % 4.1 % (3.8-10.2); PLATELET COUNT 261 K/MM3 (134-434); RBC 4.77 M/mm3 (4.00-5.60); RDW 14.3 % (11.9-15.9); WHITE BLOOD COUNT 12.9 K/mm3 (4.0-10.0)
[2019-01-09 18:27] LABS: INR 1.69 (0.83-1.09)
--- NOTE | 2019-01-09 18:30 | PDOC ---
Attending Attestation - Resident Resident Name: Fior Naylor - ED Attending Attestation I have performed the following: I have examined & evaluated the patient, The case was reviewed & discussed with the resident, I agree w/resident's findings & plan, Exceptions are as noted - HPI HPI: 01/09/19 18:26 This 48-year-old male brought in by ambulance from [facility] for leg and back pain - Physicial Exam PE: 01/09/19 18:27 Obese 48-year-old male with complaint of chest pain and back pain. Head normocephalic/atraumatic, ears deafness in his left ear He does have air movement in all lung olson, no appreciable wheezing Protuberant with large pannus. Extremities is intact chronic venous stasis bilaterally, no pitting edema at this time. -Right lower leg is cooler than his left lower leg. Skin chronic venous stasis of lower extremities bilaterally. Neuro alert and conversant , days he has had difficulties moving his right leg for the past 3 months - Medical Decision Making 01/09/19 18:35 48-year-old male coming from a retirement with a past medical history of he, COPD, CHF, hypertension, hyperlipidemia, ASA, hypothyroidism and DVT who is is maintained on 3 L oxygen nasal cannula Medical history significant for acute on chronic respiratory failure with hypoxia and hypercapnia, previous intubations, pneumonia, DVT, glaucoma, hyperlipidemia, hypertension X-ray was done, but it was poor inspiratory effort 01/09/19 20:50 patient has a negative troponin. Hyponatremia with a sodium of 123. CBC is unremarkable. Chemistries show a normal anion gap, normal lfts 01/09/19 21:13 pt refused to lay down to get the ct scan done because his back hurt 01/09/19 23:49 pt has c/o left leg pain and he has a cool left foot, the arterial duplex of that leg shows decreased flow but not complete occlusion . Vascular will be consulted and pt admitted for intractible leg pain,hyponatremia
[2019-01-09] MEDS ORDERED: traMADol HCL 50 MG TABLET ONE (18:37)
[2019-01-09 18:39] LABS: ALBUMIN 3.1 g/dl (3.4-5.0); BLOOD UREA NITROGEN 12.5 mg/dL (7-18); CALCIUM 9.6 mg/dL (8.5-10.1); CREATININE 0.7 mg/dL (0.55-1.3); POTASSIUM 4.3 mmol/L (3.5-5.1); TOT PROT 5.7 g/dl (6.4-8.2)
[2019-01-09] MEDS ORDERED: FUROSEMIDE 40 MG/4 ML INJECTABLE VIAL IVPUSH ONE (19:10)
--- NOTE | 2019-01-09 19:27 | PDOC ---
*Physical Exam - Vital Signs Last Vital Signs Temp Pulse Resp BP Pulse Ox 98.5 F 112 H 20 101/89 98 01/09/19 17:41 01/09/19 18:00 01/09/19 18:00 01/09/19 18:00 01/09/19 18:00 - Physical Exam General Appearance: Yes: Nourished, Appropriately Dressed, Moderate Distress, Obese HEENT: positive: EOMI, Normal Voice, Symmetrical, Pharynx Normal, Hearing Grossly Normal. negative: Scleral Icterus (R), Scleral Icterus (L), Excessive drooling Neck: positive: Trachea midline, Normal Thyroid, Supple. negative: Tender, Lymphadenopathy (R), Lymphadenopathy (L) Respiratory/Chest: positive: Lungs Clear, Other (moving air well bilaterally, no accessory muscle use). negative: Chest Tender, Accessory Muscle Use, Crackles, Rales, Rhonchi, Stridor Cardiovascular: positive: Regular Rhythm, Regular Rate, Tachycardia Gastrointestinal/Abdominal: positive: Normal Bowel Sounds, Flat, Soft. negative : Tender Extremity: positive: Other (R foot colder than L with prolonged cap refill, BLE enlarged habitus but no obvious swelling, has darkening of skin in both LE consistent with chronic changes, tenderness to palpation BLE at tib/fib to knee. BUE some skin peeling at axillae, pulses present, sensation intact to LT) Integumentary: positive: Warm, Diaphoresis, Other (darkening to BLE skin, some skin breakdown in axillae) Neurologic: positive: Fully Oriented, Alert, Normal Mood/Affect, Normal Response ED Treatment Course - LABORATORY CBC & Chemistry Diagram: 01/09/19 17:55 01/09/19 17:55 - ADDITIONAL ORDERS Additional order review: Laboratory Results 01/09/19 01/09/19 01/09/19 17:55 17:55 17:55 PT with INR 20.00 H INR 1.69 H PTT (Actin FS) 36.0 Sodium 123 L Potassium 4.3 Chloride 85 L Carbon Dioxide 26 Anion Gap 12 BUN 12.5 Creatinine 0.7 Est GFR (CKD-EPI)AfAm 129.34 Est GFR (CKD-EPI)NonAf 111.59 Random Glucose 189 H Calcium 9.6 Magnesium 2.0 Total Bilirubin 1.0 AST 17 ALT 54 Alkaline Phosphatase 114 Creatine Kinase Troponin I B-Natriuretic Peptide 105.3 Total Protein 5.7 L Albumin 3.1 L 01/09/19 17:55 PT with INR INR PTT (Actin FS) Sodium Potassium Chloride Carbon Dioxide Anion Gap BUN Creatinine Est GFR (CKD-EPI)AfAm Est GFR (CKD-EPI)NonAf Random Glucose Calcium Magnesium Total Bilirubin AST ALT Alkaline Phosphatase Creatine Kinase 30 Troponin I < 0.02 B-Natriuretic Peptide Total Protein Albumin 01/09/19 17:55 RBC 4.77 MCV 95.5 MCHC 33.1 RDW 14.3 MPV 7.4 L Neutrophils % 90.0 H Lymphocytes % 5.6 L D Monocytes % 4.1 Eosinophils % 0.1 D Basophils % 0.2 - Medications Given in the ED: ED Medications Discontinued Medications Generic Name Dose Route Start Last Admin Trade Name Freq PRN Reason Stop Dose Admin Albuterol/Ipratropium 1 amp 01/09/19 18:01 01/09/19 18:51 Duoneb - NEB 01/09/19 18:02 1 amp ONCE ONE Administration Tramadol HCl 50 mg 01/09/19 18:08 01/09/19 18:51 Ultram - PO 01/09/19 18:09 50 mg ONCE ONE Administration Medical Decision Making - Medical Decision Making 01/09/19 19:26 Jay Alberto is a 48M with PMH morbid obesity, BUE DVTs on Xarelto, BONY, COPD (on 3L O2 at home) with multiple previous intubations, previous episodes of acute on chronic respiratory failure with hypoxia and hypercapnia, diastolic HF, anemia, UGI bleeding, HTN, hyperthyroidism, glaucoma, [facility] with acute on chronic CP, back pain, and BLE pain. Presents with cold R foot with poor cap refill, lower back pain, chest pain, and subjective dyspnea. Satting 100 on 4L NC. Given Tramadol for LBP, patient still complains of pain and reports unable to get comfortable. Concern high for DVT+PE given hx DVT, possible treatment failure on Xarelto. BLE Duplex performed, pending read. Plan to get CTA for high concern PE and BUE Duplex to evaluate clot burden. Got 40mg IV Lasix per recc Dr. Aldana from nephrology given Na 123. CXR shows bibasilar opacification consistent with possible pleural effusion vs. atelectasis. ECG shows sinus tachycardia with no other concerning findings, HR 104. 01/09/19 21:42 Patient refused CTA 2/2 size and inability to lie flat. Pt has had CT here in the past, but physical exam suggests patient may not actually fit at this time. Getting BUE Duplex at this time. ABG pH 7.50 with CO 28 consistent with respiratory alkalosis. BNP 105, WBC 12.9, trop negative, BUN/Cr WNL. Not suggestive of CHF, but PNA a possibility. Remains 100% on 3L NC. Still tachycardic to 100s. BLE US: [facility] Name: JAY ALBERTO JR, G DEPARTMENT OF RADIOLOGY Phys: Jay Zamarripa RESIDENT : 1970 Age: 48 Sex: M [facility] Acct : [id number] Loc: [address] Exam Date: 01/09/19 Status: [place] [id number] Unit Number: [id number] EXAM#: TYPE/EXAM: RESULT: US/DUPLEX ART. LOWER COMPL US History provided: Decreased peripheral pulses. Real-time and Doppler evaluation of the arteries of both lower extremities demonstrates the following: The liver is a small amount of atherosclerotic plaque scattered throughout the common and superficial femoral arteries, as well as the popliteal and posterior tibial arteries bilaterally. Triphasic and biphasic flow is documented throughout these vessels with no evidence of occlusions or hemodynamically significant stenoses. There are diminished velocities identified bilaterally, as well as irregular flow consistent with cardiac arrhythmia. Clinical correlation is advised. IMPRESSION: Mild atherosclerotic disease with no evidence of occlusions or hemodynamically significant stenoses. There are diminished velocities bilaterally which may be related to a cardiac abnormality. Please see above discussion. Reported By: Jose Smart MD 01/09/19201401/09/19 22:38 No signs of DVT in BUE. No evidence of arterial occulusion. Patient has a history of COPD on home oxygen, diastolic HF. Requires admission at this time for hyponatremia, possible PNA, morbid obesity, COPD on home oxygen , intractible lower back pain, and further evaluation of the poor perfusion of his RLE. 01/09/19 23:35 Spoke to nakul Sharma for admission under Dr. Tonia CELAYA for hyponatremia vs. PNA vs. atelectasis. *DC/Admit/Observation/Transfer Diagnosis at time of Disposition: Acute exacerbation of chronic obstructive pulmonary disease (COPD), Tachycardia , Right leg pain, Morbid obesity, Poor perfusion of leg, Hyponatremia Lower back pain Qualifiers: Chronicity: acute Back pain laterality: midline Sciatica presence: without sciatica Qualified Code(s): M54.5 - Low back pain - Referrals - Patient Instructions - Post Discharge Activity
[2019-01-09] MEDS ORDERED: FUROSEMIDE 40 MG/4 ML INJECTABLE VIAL ONE (19:38)
[2019-01-09 19:58] LABS: ARTERIAL BLD GAS O2 SATURATION 97.3 % (95-98); ARTERIAL BLOOD GAS BASE EXCESS 0.9 meq/l (-2-2); ARTERIAL BLOOD GAS PCO2 28.9 mmHg (35-45); ARTERIAL BLOOD GAS PO2 90.4 mmHg (80-100); CARBOXYHEMOGLOBIN 0.6 % (0-2)
[2019-01-09 19:59] LABS: ALLENS TEST POSITIVE
[2019-01-09 21:21] LABS: ANISOCYTOSIS 0; MACROCYTOSIS 0; PLATELET ESTIMATE NORMAL
[2019-01-09 23:18] LABS: PH,URINE 8.5 (5.0-8.0); URINE APPEARANCE Turbid; URINE BILIRUBIN 1+ (NEGATIVE); URINE COLOR Yellow; URINE GLUCOSE (UA) Negative (NEGATIVE); URINE KETONE 1+ (NEGATIVE); URINE LEUK ESTERASE 1+ (NEGATIVE); URINE NITRITE Negative (NEGATIVE); URINE PROTEIN 3+ (NEGATIVE)
--- NOTE | 2019-01-09 23:42 | HP ---
Admitting History and Physical - Primary Care Physician PCP: Dr. Randall - Admission Chief Complaint: SOB, chest pain and back pain History of Present Illness: 48 year old male with PMH of morbid obesity, BONY, COPD, diastolic HF, anemia, h/ o UGI bleeding, HTN, hyperthyroidism, DVTs (UEs, on Xarelto) arrived from [facility] due to acute on chronic CP, back pain, and RLE pain/ change in temperature. Pain expressed as generalized for over course of months. Pain to chest/back makes it difficulty to breath, helps when sitting up right, also states RLE has been cold and poor movement oain/tender to touch. Patient endorses lightheadedness, palpitations, and leg swelling and change in temperature, also with nausea at times. Patient denies PEDRAZA, vision changes, cough , abdominal pain, vomiting, dysuria, hematuria. Patient is poor historian and states he gets confused sometimes. History Source: Patient, Medical Record Limitations to Obtaining History: Clinical Condition (speech not clear) - Past Medical History Cardiovascular: Yes: CHF, Deep Vein Thrombosis, HTN, Hyperlipdemia, Other ( chronic peripheral edema) Pulmonary: Yes: Asthma, COPD, O2 Dependent (3L), Pneumonia, Sleep Apnea, Other ( BONY on bipap at night) Gastrointestinal: Yes: GERD, GI Bleed (history of UGI bleed) Heme/Onc: Yes: Anemia, Hypercoaguable State (DVT RUE) Psych: Yes: Addictions Musculoskeletal: Yes: Chronic low back pain, Other (bilateral LE chronic edema and weakness) ENT: Yes: Other (left ear NEZ PERCE) Endocrine: Yes: Hyperthyroidism, Other (morbid obesity thyroid goiter) Dermatology: Yes: Other (chronic bilateral venostasis) - Past Surgical History Additional Past Surgical History: (corterize abdominal bleed) - Smoking History Smoking history: Former smoker Have you smoked in the past 12 months: Yes Aproximately how many cigarettes per day: 3 If you are a former smoker, when did you quit?: 2016 (20+ pack year hx prior) - Alcohol/Substance Use Hx Alcohol Use: No History of Substance Use: reports: Cocaine - Social History Usual Living Arrangement: Yes: [facility] ADL: Support Services (Mother moved in for some assistance) History of Recent Travel: No Home Medications - Allergies Allergies/Adverse Reactions: Allergies Allergy/AdvReac Type Severity Reaction Status Date / Time aspirin Allergy Verified 10/12/17 11:49 milk AdvReac Verified 10/12/17 11:49 mushroom Allergy Unknown Uncoded 10/12/17 11:49 TURKEY Allergy Uncoded 10/12/17 11:49 - Home Medications Home Medications: Ambulatory Orders Ergocalciferol [Vitamin D2] 50,000 unit PO WEEKLY 05/10/15 Furosemide [Lasix -] 40 mg PO BID 05/10/15 Methimazole 10 mg PO DAILY 05/10/15 Rivaroxaban [Xarelto -] 20 mg PO DAILY 05/10/15 Vitamin B Complex 1 each PO DAILY 05/10/15 Timolol 0.5% [Timoptic 0.5%] 1 drop OU DAILY drops 05/15/15 Atorvastatin Ca [Lipitor] 10 mg PO DAILY 09/06/15 Albuterol 2.5/Ipratropium 0.5 [Duoneb -] 1 amp NEB QIDR amp 05/10/16 Dorzolamide HCl [Trusopt 2% -] 1 drop OU BID drops 10/20/17 Dexamethasone [Decadron -] 4 mg PO BID tablet 07/26/18 Lisinopril [Prinivil] 5 mg PO DAILY tablet 07/26/18 Nystatin Oral Suspension - [Nystatin Oral Susp 775082 Units/5 ML -] 500,000 units PO Q6HPO cup 07/26/18 Acetaminophen 650 mg PO QID PRN 01/09/19 Omeprazole 20 mg PO DAILY 01/09/19 Tramadol HCl [Ultram] 50 mg PO BID PRN 01/09/19 Family Medical History Family History: Denies Review of Systems - Review of Systems Constitutional: reports: No Symptoms Eyes: reports: No Symptoms, Floaters HENT: reports: No Symptoms Neck: reports: No Symptoms Cardiovascular: reports: Chest Pain, Palpitations, Shortness of Breath Respiratory: reports: SOB, SOB on Exertion Gastrointestinal: reports: Nausea Genitourinary: reports: No Symptoms Musculoskeletal: reports: Back Pain, Extremity Pain (right leg pain, diffculty with movement) Integumentary: reports: No Symptoms Neurological: reports: No Symptoms ( RLE weakness, decreased sensation b/l feet and R thumb), Numbness Endocrine: reports: No Symptoms Psychiatric: reports: No Symptoms Physical Examination Vital Signs: Vital Signs Temperature 98.5 F 01/09/19 17:41 Pulse Rate 112 H 01/09/19 18:00 Respiratory Rate 20 01/09/19 18:00 Blood Pressure 101/89 01/09/19 18:00 O2 Sat by Pulse Oximetry (%) 98 01/09/19 18:00 Constitutional: Yes: Moderate Distress, Obese Eyes: Yes: EOM Intact HENT: Yes: Atraumatic, Normocephalic Neck: Yes: Supple, Trachea Midline Cardiovascular: Yes: Regular Rate and Rhythm, Tachycardia Respiratory: Yes: Regular, CTA Bilaterally, On Nasal O2, SOB, Wheezes Gastrointestinal: Yes: Normal Bowel Sounds, Soft, Abdomen, Obese Musculoskeletal: Yes: Back Pain Extremities: Yes: Calf Tenderness (b/l LE consistent with vascualr chronic changes) Edema: No Neurological: Yes: Alert, Oriented Labs: CBC, BMP 01/09/19 17:55 01/09/19 17:55 Imaging - Results Chest X-ray: Report Reviewed (b/l pleural effusion and b/l consolidation) Ultrasound: Report Reviewed (Duplex vascular B/L LE : no acute DVT Duplex LE artery: mild atherosclertoic disease, no occulsion Duples UE artery: no evidence of occulsion) EKG: Report Reviewed (sinus tachy,no acute s/t changes) Other: Report Reviewed (trops: negative, BNP: 105.3 wbc: 12.9) Problem List - Problems (1) Acute exacerbation of chronic obstructive pulmonary disease (COPD) Code(s): J44.1 - CHRONIC OBSTRUCTIVE PULMONARY DISEASE W (ACUTE) EXACERBATION (2) Pneumonia Code(s): J18.9 - PNEUMONIA, UNSPECIFIED ORGANISM (3) Chronic respiratory failure with hypoxia and hypercapnia Code(s): J96.21 - ACUTE AND CHRONIC RESPIRATORY FAILURE WITH HYPOXIA; J96.22 - ACUTE AND CHRONIC RESPIRATORY FAILURE WITH HYPERCAPNIA (4) Anemia Code(s): D64.9 - ANEMIA, UNSPECIFIED (5) HTN (hypertension) Code(s): I10 - ESSENTIAL (PRIMARY) HYPERTENSION (6) Hyperthyroidism Code(s): E05.90 - THYROTOXICOSIS, UNSP WITHOUT THYROTOXIC CRISIS OR STORM (7) Morbid obesity due to excess calories Code(s): E66.01 - MORBID (SEVERE) OBESITY DUE TO EXCESS CALORIES (8) Obstructive apnea Code(s): G47.33 - OBSTRUCTIVE SLEEP APNEA (ADULT) (PEDIATRIC) (9) DVT of upper extremity (deep vein thrombosis) Code(s): I82.629 - ACUTE EMBOLISM AND THROMBOSIS OF DEEP VN UNSP UP EXTREM (10) Glaucoma Code(s): H40.9 - UNSPECIFIED GLAUCOMA Assessment/Plan 48 year old male with PMH of morbid obesity, BONY, COPD, diastolic HF, anemia, h/ o UGI bleeding, HTN, hyperthyroidism, DVTs (UEs, on Xarelto) arrived from [facility] due to acute on chronic CP, back pain, and RLE pain/ change in temperature. # Acute on chronic COPD vs Pneumonia DVT UE/LE - ruled out CTA pateint refuses as patient back hurts, and de la o not fit in machine comfortably EKG: sinus tachy,no acute s/t changes cxr:b/l pleural effusion and b/l consolidation Duplex vascular B/L LE : no acute DVT Duplex LE artery: mild atherosclertoic disease, no occulsion Duples UE artery: no evidence of occulsion trops: negative, BNP: 105.3 wbc: 12.9 - in ED given lasix 40 mg x1, nebulizer and tramadol 50 mg x1 for pain - start Rocephin 1 g x1 now then daily - start predisone 30 mg po daily - continue with nebulizer 6 hours - continue with o2 via NC 3-4 L/min - follow up ID - will repeat cbc, bmp and cxr in AM #BNOY, Morbid obesity - monitor for safety/fall precaution - monitor spo2 closely determine need for CPAP # HTN / HLD - Conitnue with Lisinopril 5 mg PO DAILY - Continue with Lipitor 10 mg daily # Diastolic HF - continue with lasix 40 mg BID # H/o of DVT UE - continue with xarelto 20 mg daily # Hyperthyroidism - continue with Methimazole 10 mg PO DAILY= # GERD - continue with omeprazole 40 mg PO BID # Glaucoma - continue with as prescribed eye drops Visit type - Emergency Visit Emergency Visit: Yes Care time: The patient presented to the Emergency Department on the above date and was hospitalized for further evaluation of their emergent condition. - New Patient This patient is new to me today: Yes Date on this admission: 01/10/19 - Critical Care Critical Care patient: No
[2019-01-10 00:03] LABS: URIC ACID 6.9 mg/dL (2.6-7.2)
[2019-01-10] MEDS ORDERED: ACETAMINOPHEN 325 MG TABLET (FP) PO PRN (00:23)
[2019-01-10] MEDS ORDERED: CEFTRIAXONE 1 GM in DEXTROSE 5%-WATER - 50 ML IVPB ONE (00:35)
[2019-01-10] MEDS ORDERED: CEFTRIAXONE 1 GM/50 ML BAG ONE (01:03)
[2019-01-10] MEDS: ALBUTEROL SO4 2.5/IPRATROPIUM 0.5 INH SOL 3 ML VIAL.NEB. NEB SCH ×5 (01:10→20:20)
[2019-01-10] MEDS ORDERED: ALBUTEROL SO4 2.5/IPRATROPIUM 0.5 INH SOL 3 ML VIAL.NEB. NEB ONE ×2 (01:16→08:22)
[2019-01-10] MEDS ORDERED: FUROSEMIDE 40 MG TABLET (FP) PO SCH ×2 (06:00→06:43)
[2019-01-10] MEDS ORDERED: RIVAROXABAN 20 MG TABLET PO SCH (06:00)
[2019-01-10] MEDS: PANTOPRAZOLE 20 MG TABLET (FP) PO SCH (08:28)
[2019-01-10 08:35] LABS: HEMATOCRIT 44.6 % (35.4-49); HEMOGLOBIN 15.1 GM/dL (11.7-16.9); MCH 32.3 pg (25.7-33.7); MCHC 33.8 g/dl (32.0-35.9); MEAN CELL VOLUME 95.6 fl (80-96); MEAN PLT VOLUME 7.2 fl (7.5-11.1); PLATELET COUNT 248 K/MM3 (134-434); RBC 4.66 M/mm3 (4.00-5.60); RDW 14.2 % (11.9-15.9); WHITE BLOOD COUNT 12.4 K/mm3 (4.0-10.0)
[2019-01-10 09:09] LABS: BLOOD UREA NITROGEN 17.4 mg/dL (7-18); CALCIUM 9.6 mg/dL (8.5-10.1); POTASSIUM 3.9 mmol/L (3.5-5.1)
[2019-01-10] MEDS ORDERED: PATIENT'S OWN MEDICATION (NON-FORMULARY) (Omeprazole 20 MG) PO SCH (10:00)
[2019-01-10] MEDS ORDERED: LISINOPRIL 5 MG TABLET (FP) PO SCH (10:00)
[2019-01-10] MEDS: DEXAMETHASONE 4 MG TABLET (FP) PO SCH (10:29)
[2019-01-10] MEDS: predniSONE 10 MG TABLET (UD) PO SCH (10:30)
--- NOTE | 2019-01-10 11:00 | EKG ---
Test Reason : Blood Pressure : / mmHG Vent. Rate : 104 BPM Atrial Rate : 104 BPM P-R Int : 168 ms QRS Dur : 076 ms QT Int : 316 ms P-R-T Axes : 056 114 037 degrees QTc Int : 415 ms POOR DATA QUALITY, INTERPRETATION MAY BE ADVERSELY AFFECTED SINUS TACHYCARDIA RIGHT ATRIAL ENLARGEMENT LOW VOLTAGE QRS POSSIBLE LATERAL INFARCT , AGE UNDETERMINED ABNORMAL ECG WHEN COMPARED WITH ECG OF 17-JUL-2018 14:05, SIGNIFICANT CHANGES HAVE OCCURRED Confirmed by Stephen Ricardo ([id number]) on 01/10/2019 11:00:01 AM Referred By: Confirmed By:Stephen Ricardo
[2019-01-10] MEDS: METHIMAZOLE 10 MG TABLET (FP) PO SCH (11:30)
[2019-01-10] MEDS: DORZOLAMIDE 2% HCL OPHTHALMIC SOLUTION 10 ML BOTTLE OU SCH (11:30)
[2019-01-10] MEDS: traMADol HCL 50 MG TABLET PO PRN (11:34)
[2019-01-10] MEDS ORDERED: traMADol HCL 50 MG TABLET ONE (11:34)
--- NOTE | 2019-01-10 11:35 | PN ---
Progress Note, Physician Chief Complaint: Chest pain Pneumonia History of Present Illness: NAD in bed - Current Medication List Current Medications: Active Medications Acetaminophen (Tylenol -) 650 mg PO Q6H PRN PRN Reason: PAIN LEVEL 1-5 Albuterol/Ipratropium (Duoneb -) 1 amp NEB RQID PALLAVI Last Admin: 01/10/19 08:25 Dose: 1 amp Atorvastatin Calcium (Lipitor -) 10 mg PO HS PALLAVI Dexamethasone (Decadron -) 4 mg PO BID PALLAVI Dorzolamide HCl (Trusopt 2%) 1 drop OU BID PALLAVI Furosemide (Lasix -) 40 mg PO BIDLASIX PALLAVI Ceftriaxone Sodium 1 gm/ (Dextrose) 50 mls @ 100 mls/hr IVPB DAILY [facility]; Protocol Stop: 01/16/19 23:59 Methimazole (Tapazole -) 10 mg PO DAILY PALLAVI Pantoprazole Sodium (Protonix -) 20 mg PO ACBK PALLAVI Prednisone (Deltasone -) 30 mg PO DAILY [facility] Stop: 01/16/19 23:59 Rivaroxaban (Xarelto) 20 mg PO DAILY@1800 PALLAVI Tramadol HCl (Ultram -) 50 mg PO BID PRN PRN Reason: PAIN LEVEL 7 - 10 - Objective Vital Signs: Vital Signs Temperature 98.5 F 01/09/19 17:41 Pulse Rate 106 H 01/10/19 06:21 Respiratory Rate 18 01/10/19 06:21 Blood Pressure 88/55 L 01/10/19 06:21 O2 Sat by Pulse Oximetry (%) 100 01/10/19 06:21 Constitutional: Yes: Well Nourished, No Distress, Calm, Obese Cardiovascular: Yes: Regular Rate and Rhythm Respiratory: Yes: Regular, Diminished (BLL), On Nasal O2 Gastrointestinal: Yes: Normal Bowel Sounds, Soft, Abdomen, Obese Genitourinary: Yes: WNL Musculoskeletal: Yes: Muscle Weakness Extremities: Yes: WNL Edema: Yes Edema: LLE: 2+, RLE: 2+ Peripheral Pulses WNL: Yes Neurological: Yes: Alert, Oriented Psychiatric: Yes: Alert, Oriented Labs: CBC, BMP 01/10/19 08:21 01/10/19 08:21 INR, PTT INR 1.69 (0.83-1.09) H 01/09/19 17:55 Problem List - Problems (1) Acute exacerbation of chronic obstructive pulmonary disease (COPD) Assessment/Plan: -Pulmonary consult -IV abx -Bronchodilators -Nasal O 2 PRN to keep SpO2>90% Code(s): J44.1 - CHRONIC OBSTRUCTIVE PULMONARY DISEASE W (ACUTE) EXACERBATION (2) Morbid obesity Assessment/Plan: -Calorie controlled low sodium diet -Recheck A1c Code(s): E66.01 - MORBID (SEVERE) OBESITY DUE TO EXCESS CALORIES (3) Pneumonia Assessment/Plan: -Pulmonary consult -IV abx -Bronchodilators -Nasal O 2 PRN to keep SpO2>90% -ID consult -IV abx -Cultures pending -Legionella UC pending -CXR reviewed Code(s): J18.9 - PNEUMONIA, UNSPECIFIED ORGANISM (4) Acute on chronic diastolic CHF (congestive heart failure) Assessment/Plan: -Pulmonary consult -IV abx -Bronchodilators -Nasal O 2 PRN to keep SpO2>90% -ID consult -IV diuresis -Cardiology consult -1L fluid restriction -daily weights Code(s): I50.33 - ACUTE ON CHRONIC DIASTOLIC (CONGESTIVE) HEART FAILURE (5) Hyponatremia Assessment/Plan: -Nephrology consult -Likely 2/2 to fluid overload/dilutional -1L fluid restriction -Monitor trend Code(s): E87.1 - HYPO-OSMOLALITY AND HYPONATREMIA Assessment/Plan see problem list
--- NOTE | 2019-01-10 12:30 | CONSULT ---
Consult - text type - Consultation Consultation Note: Renal consult for hyponatremia This is a 48 year old gentleman with history of morbid obesity , COPD, BONY, diastolic heart failure, anemia, hypertension, hypothyrodism, DVT presented with back pain from the [place] and found to have hyponatremia with serum Na of 123. Seen an examined in the ER, awake and alert. Still reports continued back pain. Denies any confusion, lethargy, weakness, N/V. Reports poor oral intake. Drinks about 1.5-2L of water daily. No SOB, CP, fever, chills N/V/D. PMhx: as above Allergies: aspirin Family Hx: NC Social hx: No T/A/D ROS: as per HPI, all other pertinent ros negative Home Medications Medication Instructions Recorded Ergocalciferol [Vitamin D2] 50,000 unit PO WEEKLY 05/10/15 Furosemide [Lasix -] 40 mg PO BID 05/10/15 Methimazole 10 mg PO DAILY 05/10/15 Rivaroxaban [Xarelto -] 20 mg PO DAILY 05/10/15 Vitamin B Complex 1 each PO DAILY 05/10/15 Timolol 0.5% [Timoptic 0.5%] 1 drop OU DAILY drops 05/15/15 Atorvastatin Ca [Lipitor] 10 mg PO DAILY 09/06/15 Albuterol 2.5/Ipratropium 0.5 1 amp NEB QIDR amp 05/10/16 [Duoneb -] Dorzolamide HCl [Trusopt 2% -] 1 drop OU BID drops 10/20/17 Dexamethasone [Decadron -] 4 mg PO BID tablet 07/26/18 Lisinopril [Prinivil] 5 mg PO DAILY tablet 07/26/18 Nystatin Oral Suspension - 500,000 units PO Q6HPO cup 07/26/18 [Nystatin Oral Susp 644698 Units/5 ML -] Acetaminophen 650 mg PO QID PRN 01/09/19 Omeprazole 20 mg PO DAILY 01/09/19 Tramadol HCl [Ultram] 50 mg PO BID PRN 01/09/19 Vital Signs Temperature 98.5 F 01/09/19 17:41 Pulse Rate 106 H 01/10/19 06:21 Respiratory Rate 18 01/10/19 06:21 Blood Pressure 88/55 L 01/10/19 06:21 O2 Sat by Pulse Oximetry (%) 100 01/10/19 06:21 Intake & Output 01/07/19 01/08/19 01/09/19 01/10/19 23:59 23:59 23:59 23:59 Weight 158.757 kg NAD awake and alert on NC O2 tachycardic Dec BS soft NT/ND, Obese Trace LE edema CBC, BMP 01/10/19 08:21 01/10/19 08:21 Current Medications Acetaminophen (Tylenol -) 650 mg PO Q6H PRN PRN Reason: PAIN LEVEL 1-5 Albuterol/Ipratropium (Duoneb -) 1 amp NEB RQID REPLACED BY [facility] Last Admin: 01/10/19 08:25 Dose: 1 amp Atorvastatin Calcium (Lipitor -) 10 mg PO HS PALLAVI Dexamethasone (Decadron -) 4 mg PO BID REPLACED BY [facility] Last Admin: 01/10/19 10:29 Dose: 4 mg Dorzolamide HCl (Trusopt 2%) 1 drop OU BID REPLACED BY [facility] Last Admin: 01/10/19 11:30 Dose: Not Given Furosemide (Lasix -) 40 mg PO BIDLASIX REPLACED BY [facility] Ceftriaxone Sodium 1 gm/ (Dextrose) 50 mls @ 100 mls/hr IVPB DAILY REPLACED BY [facility]; Protocol Stop: 01/16/19 23:59 Methimazole (Tapazole -) 10 mg PO DAILY REPLACED BY [facility] Last Admin: 01/10/19 11:30 Dose: 10 mg Pantoprazole Sodium (Protonix -) 20 mg PO ACBK REPLACED BY [facility] Last Admin: 01/10/19 08:28 Dose: 20 mg Prednisone (Deltasone -) 30 mg PO DAILY REPLACED BY [facility] Stop: 01/16/19 23:59 Last Admin: 01/10/19 10:30 Dose: 30 mg Rivaroxaban (Xarelto) 20 mg PO DAILY@1800 REPLACED BY [facility] Tramadol HCl (Ultram -) 50 mg PO BID PRN PRN Reason: PAIN LEVEL 7 - 10 Last Admin: 01/10/19 11:34 Dose: 50 mg 48 year old gentleman with history of morbid obesity, COPD, BONY , diastolic heart failure, anemia, hypertension, hypothyrodism, DVT presented with back pain from the [place] and found to have hyponatremia with serum Na of 123. 1. Hypervolemic hyponatremia 2. Diastolic CHF with pleural effusions 3. Acute on chronic lower back pain 4. Morbid obesity 5. COPD/BONY Pt with evidence of fluid overload (edema and effusions). Urine studies not consistent with SIADH. Fluid restriction of 1L daily Change diuretics to IV Lasix 40mg BID Trend Na Q12h Pain control oral solute intake as tolerated Thank you Dennis Aldana DO
--- NOTE | 2019-01-10 12:52 | CON.PULM ---
Consult Consult Specialty:: PULMONARY Referred by:: Dr Randall Reason for Consultation:: shortness of breath - History of Present Illness Chief Complaint: shortness of breath History of Present Illness: 48yo male with h/o HTN, hyperthyroidism, morbid obesity, obstructive sleep apnea , COPD, h/o DVTs on anticoagulation who was transferred from the half-way for chest pain and shortness of breath "for a while." Reports a cough productive of white sputum. No wheezing. No fevers, chills or sweats. No recent travel or sick contacts. He does not get out of bed since he cannot stand. Reports compliance with his medications. - History Source History Provided By: Patient, Medical Record Limitations to Obtaining History: Clinical Condition - Past Medical History Cardio/Vascular: Yes: CHF, Deep Vein Thrombosis, HTN, Hyperlipdemia, Other ( chronic peripheral edema) Pulmonary: Yes: Asthma, COPD, O2 Dependent (3L), Pneumonia, Sleep Apnea, Other ( BONY on bipap at night) Gastrointestinal: Yes: GERD, GI Bleed (history of UGI bleed) Psych: Yes: Addictions Musculoskeletal: Yes: Chronic low back pain, Other (bilateral LE chronic edema and weakness) ENT: Yes: Other (left ear [place]) Endocrine: Yes: Hyperthyroidism, Other (morbid obesity thyroid goiter) Dermatology: Yes: Other (chronic bilateral venostasis) Additional Medical History: BONY, morbid obesity, RUEXT DVT - Alcohol/Substance Use Hx Alcohol Use: No History of Substance Use: reports: Cocaine - Smoking History Smoking history: Former smoker Have you smoked in the past 12 months: Yes Aproximately how many cigarettes per day: 3 If you are a former smoker, when did you quit?: 2016 (20+ pack year hx prior) - Social History Usual Living Arrangement: Alone ADL: Support Services (Mother moved in for some assistance) History of Recent Travel: No Home Medications - Allergies Allergies/Adverse Reactions: Allergies Allergy/AdvReac Type Severity Reaction Status Date / Time aspirin Allergy Verified 10/12/17 11:49 milk AdvReac Verified 10/12/17 11:49 mushroom Allergy Unknown Uncoded 10/12/17 11:49 TURKEY Allergy Uncoded 10/12/17 11:49 - Home Medications Home Medications: Ambulatory Orders Ergocalciferol [Vitamin D2] 50,000 unit PO WEEKLY 05/10/15 Furosemide [Lasix -] 40 mg PO BID 05/10/15 Methimazole 10 mg PO DAILY 05/10/15 Rivaroxaban [Xarelto -] 20 mg PO DAILY 05/10/15 Vitamin B Complex 1 each PO DAILY 05/10/15 Timolol 0.5% [Timoptic 0.5%] 1 drop OU DAILY drops 05/15/15 Atorvastatin Ca [Lipitor] 10 mg PO DAILY 09/06/15 Albuterol 2.5/Ipratropium 0.5 [Duoneb -] 1 amp NEB QIDR amp 05/10/16 Dorzolamide HCl [Trusopt 2% -] 1 drop OU BID drops 10/20/17 Dexamethasone [Decadron -] 4 mg PO BID tablet 07/26/18 Lisinopril [Prinivil] 5 mg PO DAILY tablet 07/26/18 Nystatin Oral Suspension - [Nystatin Oral Susp 343208 Units/5 ML -] 500,000 units PO Q6HPO cup 07/26/18 Acetaminophen 650 mg PO QID PRN 01/09/19 Omeprazole 20 mg PO DAILY 01/09/19 Tramadol HCl [Ultram] 50 mg PO BID PRN 01/09/19 Review of Systems - Review of Systems Constitutional: reports: Weakness. denies: Chills, Fever Eyes: denies: Recent Change in Vision HENT: denies: Nasal Congestion, Throat Pain Neck: denies: Stiffness, Tenderness Cardiovascular: reports: Chest Pain, Shortness of Breath. denies: Edema Respiratory: reports: Cough. denies: Wheezing Gastrointestinal: denies: Abdominal Pain, Nausea, Vomiting Genitourinary: denies: Dysuria, Hematuria Neurological: reports: Dizziness. denies: Headache Endocrine: denies: Unexplained Weight Loss Physical Exam Vital Sings: Vital Signs Temperature 98.5 F 01/09/19 17:41 Pulse Rate 106 H 01/10/19 06:21 Respiratory Rate 18 01/10/19 06:21 Blood Pressure 88/55 L 01/10/19 06:21 O2 Sat by Pulse Oximetry (%) 100 01/10/19 06:21 Constitutional: Yes: Calm Eyes: Yes: Conjunctiva Clear, EOM Intact HENT: Yes: Atraumatic, Normocephalic Neck: Yes: Supple, Trachea Midline Cardiovascular: Yes: Regular Rate and Rhythm Respiratory: Yes: Diminished ...Clubbing: No Gastrointestinal: Yes: Normal Bowel Sounds, Soft, Abdomen, Obese. No: Tenderness Edema: No Neurological: Yes: Alert, Oriented Labs: CBC, BMP 01/10/19 08:21 01/10/19 08:21 ABG Results ABG pH 7.50 (7.35-7.45) H 01/09/19 19:40 ABG pCO2 at Pt Temp 28.9 mmHg (35-45) L 01/09/19 19:40 ABG pO2 at Pt Temp 90.4 mmHg (80-100) 01/09/19 19:40 ABG HCO3 22.6 mmol/L (22-27) 01/09/19 19:40 ABG O2 Sat (Measured) 97.3 % (95-98) 01/09/19 19:40 ABG O2 Content 97.3 % vol 01/09/19 19:40 ABG Base Excess 0.9 meq/l (-2-2) 01/09/19 19:40 Imaging - Results Chest X-ray: Report Reviewed, Image Reviewed (pulmonary vascular congestion) Problem List - Problems (1) Acute on chronic diastolic CHF (congestive heart failure) Code(s): I50.33 - ACUTE ON CHRONIC DIASTOLIC (CONGESTIVE) HEART FAILURE (2) Morbid (severe) obesity due to excess calories Code(s): E66.01 - MORBID (SEVERE) OBESITY DUE TO EXCESS CALORIES Assessment/Plan Acute on Chronic Diastolic Heart Failure Volume Overload Hyponatremia Morbid Obesity Obstructive Sleep Apnea Obesity Hypoventilation Syndrome COPD Anemia h/o DVT HTN - IV lasix - monitor urine output, creatinine - keep net negative - O2 to keep SpO2 >90% - monitor sodium - inhaled bronchodilators - on empiric antibiotics - f/u cultures - BiPAP at night and PRN during day - continue anticoagulation Thank you for this consult Michel Banerjee MD
--- NOTE | 2019-01-10 12:54 | PN ---
Progress Note (short form) - Note Progress Note: ID CONSULT DICTATED ACUTE EXACERBATION COPD R/O HCAP MORBID OBESITY AWAIT C/S EMPIRIC ZOSYN/ VANCOMYCIN
--- NOTE | 2019-01-10 13:53 | CONS ---
INFECTIOUS DISEASE CONSULTATION DATE OF CONSULTATION: DATE OF DICTATION: 01/10/2019 HISTORY OF PRESENT ILLNESS: The patient is a 48-year-old, morbidly obese male with a history of COPD, evaluated for possible pneumonia. He is a custodial resident. He has had several admissions for COPD exacerbation and has required intubation and ICU admission in the past. His last hospital admission at [facility] was in June and July of 2018. He now presents with worsening chest pain, back pain, and right lower extremity pain. He was evaluated in the emergency room, where he was noted to be dyspneic. Chest x-ray shows bilateral pleural effusions and bibasilar consolidation/atelectasis. The chest x-ray was a poor quality, secondary to his body habitus. Cultures were obtained. He was empirically treated with ceftriaxone. At the present time, he is somnolent. He offers no complaints. He denies any chest pain, at the present time, was not cooperative with interview. PAST MEDICAL HISTORY: Positive for COPD with exacerbations and intubation in the past, morbid obesity, congestive heart failure, nephrolithiasis, obstructive sleep apnea, hypertension, DVTs, hyperthyroidism, glaucoma. ALLERGIES: ASPIRIN. MEDICATIONS: Include Tylenol, albuterol, Lipitor, ceftriaxone, Decadron, Lasix, Tapazole, Tramadol. SOCIAL HISTORY: He resides in a retirement facility. He is a former smoker. SYSTEMS REVIEW: Neurologic: No loss of consciousness, seizure activity or focal weakness. Cardiac: Negative chest pain or palpitations. Respiratory: As per HPI. Gastrointestinal: Negative vomiting or diarrhea. Genitourinary: Negative for urinary tract infection. LABORATORY DATA: White count 12.4, neutrophils 90%, bands 2, 10. Creatinine 1.0. Hematocrit 44.6, platelets 248. Liver enzymes normal. PHYSICAL EXAMINATION: General: On physical examination, he is morbidly obese, seated supine on the stretcher in the emergency room. Vital Signs: Temperature 98.5, blood pressure 88/55, pulse 82 regular, respirations 18 per minute. Patient is morbidly obese. Heart: Heart sounds S1, S2. Lungs: Grossly clear. Poor inspiratory effort. Abdomen: Massively obese. Nontender. Extremities: Positive for lower extremity edema and stasis dermatitis. There is some exfoliation present of the right upper extremity, does not appear to be infected, however. IMPRESSION: 1. Acute exacerbation chronic obstructive pulmonary disease. 2. Rule out hospital-acquired pneumonia. 3. Morbid obesity. Obtain blood cultures, urine legionella and pneumococcal antigen, sputum culture. Empiric antibiotic coverage for healthcare-acquired pathogens with vancomycin and Zosyn, pending sepsis workup. Pulmonary evaluation. Thank you for the kind referral. SHERRY RAMACHANDRAN M.D. [id number]
[2019-01-10] MEDS: PIPERACILLIN/TAZOB 4.5 GM 4.5 GM in DEXTROSE 5%-WATER 100 ML IVPB SCH ×2 (14:16→17:42)
[2019-01-10] MEDS: FUROSEMIDE 40 MG/4 ML INJECTABLE VIAL IVPUSH SCH (15:18)
[2019-01-10] MEDS: VANCOMYCIN 1,250 MG in DEXTROSE 5%-WATER - 250 ML IVPB SCH (16:16)
[2019-01-10] MEDS ORDERED: FUROSEMIDE 40 MG/4 ML INJECTABLE VIAL ONE (16:24)
[2019-01-10] MEDS: RIVAROXABAN 20 MG TABLET PO SCH (17:42)
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
[2019-01-11] MEDS: DORZOLAMIDE 2% HCL OPHTHALMIC SOLUTION 10 ML BOTTLE OU SCH ×3 (00:11→21:19)
[2019-01-11] MEDS: ATORVASTATIN CA 10 MG TABLET (FP) PO SCH ×2 (00:11→21:18)
[2019-01-11] MEDS: DEXAMETHASONE 4 MG TABLET (FP) PO SCH (00:11)
[2019-01-11] MEDS ORDERED: PIPERACILLIN/TAZOBACTAM 4.5 GM VIAL IVPB ONE ×3 (01:20→17:04)
[2019-01-11] MEDS ORDERED: DEXTROSE 5%-WATER 100 ML IVPB ONE ×3 (01:20→17:05)
[2019-01-11] MEDS: PIPERACILLIN/TAZOB 4.5 GM 4.5 GM in DEXTROSE 5%-WATER 100 ML IVPB SCH ×3 (01:39→18:24)
[2019-01-11] MEDS: VANCOMYCIN 1,250 MG in DEXTROSE 5%-WATER - 250 ML IVPB SCH ×2 (01:47→16:15)
[2019-01-11 06:14] LABS: BASO % 0.4 % (0-2.0); HEMATOCRIT 43.9 % (35.4-49); HEMOGLOBIN 15.2 GM/dL (11.7-16.9); LYMPH % 5.2 % (8-40); MCH 32.5 pg (25.7-33.7); MCHC 34.5 g/dl (32.0-35.9); MEAN PLT VOLUME 7.1 fl (7.5-11.1); MONO % 4.9 % (3.8-10.2); NEUT % 89.5 % (42.8-82.8); PLATELET COUNT 243 K/MM3 (134-434); RBC 4.67 M/mm3 (4.00-5.60); RDW 14.3 % (11.9-15.9); WHITE BLOOD COUNT 10.9 K/mm3 (4.0-10.0)
[2019-01-11] MEDS: PANTOPRAZOLE 20 MG TABLET (FP) PO SCH (06:26)
[2019-01-11] MEDS: FUROSEMIDE 40 MG/4 ML INJECTABLE VIAL IVPUSH SCH ×2 (06:26→13:52)
[2019-01-11 06:40] LABS: ALBUMIN 3.1 g/dl (3.4-5.0); BILIRUBIN,TOTAL 1.2 mg/dL (0.2-1); BLOOD UREA NITROGEN 14.1 mg/dL (7-18); CALCIUM 9.2 mg/dL (8.5-10.1); CREATININE 0.7 mg/dL (0.55-1.3); POTASSIUM 3.7 mmol/L (3.5-5.1); TOT PROT 5.8 g/dl (6.4-8.2)
[2019-01-11] MEDS: ALBUTEROL SO4 2.5/IPRATROPIUM 0.5 INH SOL 3 ML VIAL.NEB. NEB SCH ×4 (07:45→20:43)
--- NOTE | 2019-01-11 08:52 | PN ---
Progress Note, Physician - Current Medication List Current Medications: Active Medications Acetaminophen (Tylenol -) 650 mg PO Q6H PRN PRN Reason: PAIN LEVEL 1-5 Albuterol/Ipratropium (Duoneb -) 1 amp NEB RQID [facility] Last Admin: 01/10/19 20:20 Dose: Not Given Atorvastatin Calcium (Lipitor -) 10 mg PO HS [facility] Last Admin: 01/11/19 00:11 Dose: 10 mg Dexamethasone (Decadron -) 4 mg PO BID [facility] Last Admin: 01/11/19 00:11 Dose: 4 mg Dorzolamide HCl (Trusopt 2%) 1 drop OU BID [facility] Last Admin: 01/11/19 00:11 Dose: Not Given Furosemide (Lasix Injection -) 40 mg IVPUSH BID@0600,1400 [facility] Last Admin: 01/11/19 06:26 Dose: 40 mg Piperacillin Sod/Tazobactam (Sod 4.5 gm/ Dextrose) 100 mls @ 200 mls/hr IVPB Q8H-IV [facility]; Protocol Last Admin: 01/11/19 01:39 Dose: 200 mls/hr Vancomycin HCl 1,250 mg/ (Dextrose) 250 mls @ 166.667 mls/hr IVPB Q12H [facility]; Protocol Last Admin: 01/11/19 01:47 Dose: 166.667 mls/hr Methimazole (Tapazole -) 10 mg PO DAILY [facility] Last Admin: 01/10/19 11:30 Dose: 10 mg Pantoprazole Sodium (Protonix -) 20 mg PO ACBK [facility] Last Admin: 01/11/19 06:26 Dose: 20 mg Prednisone (Deltasone -) 30 mg PO DAILY [facility] Stop: 01/16/19 23:59 Last Admin: 01/10/19 10:30 Dose: 30 mg Rivaroxaban (Xarelto) 20 mg PO DAILY@1800 [facility] Last Admin: 01/10/19 17:42 Dose: 20 mg Tramadol HCl (Ultram -) 50 mg PO BID PRN PRN Reason: PAIN LEVEL 7 - 10 Last Admin: 01/10/19 11:34 Dose: 50 mg - Objective Vital Signs: Vital Signs Temperature 98.7 F 01/11/19 06:00 Pulse Rate 105 H 01/11/19 06:00 Respiratory Rate 18 01/11/19 06:00 Blood Pressure 122/58 L 09/25/19 06:00 O2 Sat by Pulse Oximetry (%) 99 01/11/19 00:36 Cardiovascular: Yes: S1, S2 Respiratory: Yes: Diminished, On BiPap, Rhonchi Gastrointestinal: Yes: Normal Bowel Sounds, Soft Labs: CBC, BMP 01/11/19 05:50 01/11/19 05:50 INR, PTT INR 1.69 (0.83-1.09) H 01/09/19 17:55 Assessment/Plan - Problems (1) Acute exacerbation of chronic obstructive pulmonary disease (COPD) Assessment/Plan: -Pulmonary consult noted -on prednisone 30 -dc dexamethasone -IV abx -Bronchodilators -Nasal O 2 PRN to keep SpO2>90% Code(s): J44.1 - CHRONIC OBSTRUCTIVE PULMONARY DISEASE W (ACUTE) EXACERBATION (2) Morbid obesity Assessment/Plan: -Calorie controlled low sodium diet -Recheck A1c Code(s): E66.01 - MORBID (SEVERE) OBESITY DUE TO EXCESS CALORIES (3) Pneumonia Assessment/Plan: -Pulmonary consult -IV abx -Bronchodilators -Nasal O 2 PRN to keep SpO2>90% -ID consult -IV abx -Cultures pending -Legionella UC pending -CXR reviewed Code(s): J18.9 - PNEUMONIA, UNSPECIFIED ORGANISM (4) Acute on chronic diastolic CHF (congestive heart failure) Assessment/Plan: -Cardio -IV Lasix -Nasal O 2 PRN to keep SpO2>90% -1L fluid restriction -daily weights Code(s): I50.33 - ACUTE ON CHRONIC DIASTOLIC (CONGESTIVE) HEART FAILURE (5) Hyponatremia Assessment/Plan: -Nephrology consult -Likely 2/2 to fluid overload/dilutional -1L fluid restriction -Monitor trend Code(s): E87.1 - HYPO-OSMOLALITY AND HYPONATREMIA
[2019-01-11] MEDS ORDERED: CEFTRIAXONE 1 GM in DEXTROSE 5%-WATER - 50 ML IVPB SCH (10:00)
[2019-01-11] MEDS ORDERED: PT OWN MED DRAWER 7, Y5N ONE ×5 (10:26→21:17)
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
[2019-01-11] MEDS: predniSONE 10 MG TABLET (UD) PO SCH (11:17)
[2019-01-11 11:22] LABS: ANISOCYTOSIS 0; HELMET CELLS 0; HOWELL-JOLLY BODIES 0; MACROCYTOSIS 0; OVALOCYTE 0; PLATELET ESTIMATE NORMAL; ROULEAU 0; SICKELED CELLS 0; TARGET CELLS 0; TEAR DROP CELLS 0; TOXIC GRANULATION 0
--- NOTE | 2019-01-11 11:38 | PN ---
Progress Note, Physician History of Present Illness: pulmonary awake,feeling better,less dyspneic. - Current Medication List Current Medications: Active Medications Acetaminophen (Tylenol -) 650 mg PO Q6H PRN PRN Reason: PAIN LEVEL 1-5 Albuterol/Ipratropium (Duoneb -) 1 amp NEB RQID [facility] Last Admin: 01/11/19 07:45 Dose: 1 amp Atorvastatin Calcium (Lipitor -) 10 mg PO HS [facility] Last Admin: 01/11/19 00:11 Dose: 10 mg Dorzolamide HCl (Trusopt 2%) 1 drop OU BID [facility] Last Admin: 01/11/19 11:18 Dose: 1 drop Furosemide (Lasix Injection -) 40 mg IVPUSH BID@0600,1400 [facility] Last Admin: 01/11/19 06:26 Dose: 40 mg Piperacillin Sod/Tazobactam (Sod 4.5 gm/ Dextrose) 100 mls @ 200 mls/hr IVPB Q8H-IV [facility]; Protocol Last Admin: 01/11/19 11:16 Dose: 200 mls/hr Vancomycin HCl 1,250 mg/ (Dextrose) 250 mls @ 166.667 mls/hr IVPB Q12H [facility]; Protocol Last Admin: 01/11/19 01:47 Dose: 166.667 mls/hr Methimazole (Tapazole -) 10 mg PO DAILY [facility] Last Admin: 01/10/19 11:30 Dose: 10 mg Pantoprazole Sodium (Protonix -) 20 mg PO ACBK [facility] Last Admin: 01/11/19 06:26 Dose: 20 mg Prednisone (Deltasone -) 30 mg PO DAILY [facility] Stop: 01/16/19 23:59 Last Admin: 01/11/19 11:17 Dose: 30 mg Rivaroxaban (Xarelto) 20 mg PO DAILY@1800 [facility] Last Admin: 01/10/19 17:42 Dose: 20 mg Tramadol HCl (Ultram -) 50 mg PO BID PRN PRN Reason: PAIN LEVEL 7 - 10 Last Admin: 01/10/19 11:34 Dose: 50 mg - Objective Vital Signs: Vital Signs Temperature 98.0 F 01/11/19 08:00 Pulse Rate 94 H 01/11/19 08:00 Respiratory Rate 18 01/11/19 08:00 Blood Pressure 110/70 01/11/19 08:00 O2 Sat by Pulse Oximetry (%) 98 01/11/19 07:45 Constitutional: Yes: Calm, Obese Eyes: Yes: WNL HENT: Yes: WNL Neck: Yes: WNL Cardiovascular: Yes: Regular Rate and Rhythm, S1, S2 Respiratory: Yes: Diminished Gastrointestinal: Yes: Normal Bowel Sounds, Soft Extremities: Yes: WNL Edema: Yes Labs: CBC, BMP 01/11/19 05:50 01/11/19 05:50 INR, PTT INR 1.69 (0.83-1.09) H 01/09/19 17:55 Problem List - Problems (1) Acute exacerbation of chronic obstructive pulmonary disease (COPD) Code(s): J44.1 - CHRONIC OBSTRUCTIVE PULMONARY DISEASE W (ACUTE) EXACERBATION (2) Anemia Code(s): D64.9 - ANEMIA, UNSPECIFIED (3) Bilateral lower extremity edema Code(s): R60.0 - LOCALIZED EDEMA (4) Moderate to severe pulmonary hypertension Code(s): I27.2 - OTHER SECONDARY PULMONARY HYPERTENSION * DO NOT USE * (5) Obstructive apnea Code(s): G47.33 - OBSTRUCTIVE SLEEP APNEA (ADULT) (PEDIATRIC) (6) Pulmonary hypertension Code(s): I27.2 - OTHER SECONDARY PULMONARY HYPERTENSION * DO NOT USE * (7) Sleep apnea Code(s): G47.30 - SLEEP APNEA, UNSPECIFIED Assessment/Plan Problem List - Problems (1) Acute on chronic diastolic CHF (congestive heart failure) Code(s): I50.33 - ACUTE ON CHRONIC DIASTOLIC (CONGESTIVE) HEART FAILURE (2) Morbid (severe) obesity due to excess calories Code(s): E66.01 - MORBID (SEVERE) OBESITY DUE TO EXCESS CALORIES Assessment/Plan Acute on Chronic Diastolic Heart Failure Volume Overload Hyponatremia Morbid Obesity Obstructive Sleep Apnea Obesity Hypoventilation Syndrome COPD Anemia h/o DVT HTN - IV lasix - monitor urine output, creatinine - keep net negative - O2 to keep SpO2 >90% - inhaled bronchodilators - empiric antibiotics - BiPAP at night and PRN during day - continue anticoagulation - monitor na,lytes - bariatric surgery evaluation DR COE
[2019-01-11] MEDS: traMADol HCL 50 MG TABLET PO PRN (11:57)
--- NOTE | 2019-01-11 13:15 | PN ---
Progress Note (short form) - Note Progress Note: Renal follow up for hyponatremia Seen and examined at the bedside. Reports continued back pain and sob. + cough. no chest pain, fever, chills. Denies any confusion, lethargy or seizures. Making urine Vital Signs Temperature 98.0 F 01/11/19 08:00 Pulse Rate 94 H 01/11/19 08:00 Respiratory Rate 18 01/11/19 08:00 Blood Pressure 110/70 01/11/19 08:00 O2 Sat by Pulse Oximetry (%) 98 01/11/19 07:45 Intake & Output 01/08/19 01/09/19 01/10/19 01/11/19 23:59 23:59 23:59 23:59 Intake Total 550 470 Output Total 350 300 Balance 200 170 Weight 158.757 kg 154.448 kg NAD trace LE edema CBC, BMP 01/11/19 05:50 01/11/19 05:50 Current Medications Acetaminophen (Tylenol -) 650 mg PO Q6H PRN PRN Reason: PAIN LEVEL 1-5 Albuterol/Ipratropium (Duoneb -) 1 amp NEB RQID [facility] Last Admin: 01/11/19 11:30 Dose: 1 amp Atorvastatin Calcium (Lipitor -) 10 mg PO HS [facility] Last Admin: 01/11/19 00:11 Dose: 10 mg Dorzolamide HCl (Trusopt 2%) 1 drop OU BID [facility] Last Admin: 01/11/19 11:18 Dose: 1 drop Furosemide (Lasix Injection -) 40 mg IVPUSH BID@0600,1400 [facility] Last Admin: 01/11/19 06:26 Dose: 40 mg Piperacillin Sod/Tazobactam (Sod 4.5 gm/ Dextrose) 100 mls @ 200 mls/hr IVPB Q8H-IV [facility]; Protocol Last Admin: 01/11/19 11:16 Dose: 200 mls/hr Vancomycin HCl 1,250 mg/ (Dextrose) 250 mls @ 166.667 mls/hr IVPB Q12H [facility]; Protocol Last Admin: 01/11/19 01:47 Dose: 166.667 mls/hr Methimazole (Tapazole -) 10 mg PO DAILY [facility] Last Admin: 01/10/19 11:30 Dose: 10 mg Pantoprazole Sodium (Protonix -) 20 mg PO ACBK [facility] Last Admin: 01/11/19 06:26 Dose: 20 mg Prednisone (Deltasone -) 30 mg PO DAILY [facility] Stop: 01/16/19 23:59 Last Admin: 01/11/19 11:17 Dose: 30 mg Rivaroxaban (Xarelto) 20 mg PO DAILY@1800 [facility] Last Admin: 01/10/19 17:42 Dose: 20 mg Tramadol HCl (Ultram -) 50 mg PO BID PRN PRN Reason: PAIN LEVEL 7 - 10 Last Admin: 01/11/19 11:57 Dose: 50 mg 48 year old gentleman with history of morbid obesity, COPD, BONY , diastolic heart failure, anemia, hypertension, hypothyrodism, DVT presented with back pain from the [place] and found to have hyponatremia with serum Na of 123. 1. Hypervolemic hyponatremia 2. Diastolic CHF with pleural effusions 3. Acute on chronic lower back pain 4. Morbid obesity 5. COPD/BONY Continue fluid restriction and BID IV Lasix will need strict I and O to document adequate response to diuretics Trend sodium levels twice daily urine studies not consistent with SIADH would not start salt tabs or hypertonic saline at this time continue supportive care Thank you Dennis Aldana DO
[2019-01-11] MEDS: METHIMAZOLE 10 MG TABLET (FP) PO SCH (13:53)
--- NOTE | 2019-01-11 14:43 | ECHO ---
Name: JAY ALBERTO JR Exam:Adult Echocardiogram Study Date: 01/11/2019 09:56 AM Age: 48 yrs Reason For Study: LV Function Height: 67 in Weight: 350 lb BSA: 2.6 m2 MMode/2D Measurements & Calculations IVSd: 1.0 cm EDV(Teich): 89.8 ml LVIDd: 4.4 cm ESV(Teich): 26.5 ml LVIDs: 2.7 cm LVPWd: 0.84 cm Procedure A two-dimensional transthoracic echocardiogram with color flow and Doppler was performed in limited v iews only. The study was non-diagnostic in quality. No definitive statements could be made about this echo due to extremely poor acoustic windows. Images were not obtained from all of the standard acoustic windows d ue to the limited scope of the study. Left Ventricle The left ventricular size, thickness and function are normal. The left ventricular ejection fraction is normal. Regional wall motion abnormalities cannot be excluded due to limited visualization. Interpretation Summary A two-dimensional transthoracic echocardiogram with color flow and Doppler was performed in [facility] iews only. The study was non-diagnostic in quality. No definitive statements could be made about this echo due t o extremely poor acoustic windows. Images were not obtained from all of the standard acoustic windows due to the limited scope of the st udy. The left ventricular size, thickness and function are normal The left ventricular ejection fraction is normal. Regional wall motion abnormalities cannot be excluded due to limited visualization. MD Michael Schmidt 01/11/2019 02:42 PM
[2019-01-11] MEDS: RIVAROXABAN 20 MG TABLET PO SCH (17:12)
--- NOTE | 2019-01-11 23:43 | CONSULT ---
Consult Consult Specialty:: ENDOCRINE Referred by:: DR.ANNABI GRAVES Reason for Consultation:: HYPERTHYRODISM,GOITER/DM2/MORBID OBESITY - History of Present Illness Chief Complaint: SHORTNESS OF BREATH/ADRENAL DEFICIENCY History of Present Illness: 48yo M hx morbid obesity,Hyperthyroidism,toxic goiter,dmt2, BONY, COPD (on 3L O2 at home), diastolic HF, anemia, UGI bleeding, HTN, glaucoma, DVTs (UEs, on Xeralta), kidney stones, previous intubations, previous PNA, presenting with hypoxia and hypercapnia, from [facility],also has CP, back pain, and RLE pain. Pt is confused sometimes. due to sever hypoxia,and hpypercapnia,confused and somnelent at times,found to have severe hyponatremia. - Past Medical History Cardio/Vascular: Yes: CHF, Deep Vein Thrombosis, HTN, Hyperlipdemia, Other ( chronic peripheral edema) Pulmonary: Yes: Asthma, COPD, O2 Dependent (3L), Pneumonia, Sleep Apnea, Other ( BONY on bipap at night) Gastrointestinal: Yes: GERD, GI Bleed (history of UGI bleed) Psych: Yes: Addictions Musculoskeletal: Yes: Chronic low back pain, Other (bilateral LE chronic edema and weakness) ENT: Yes: Other (left ear [place]) Endocrine: Yes: Hyperthyroidism, Other (morbid obesity thyroid goiter) Dermatology: Yes: Other (chronic bilateral venostasis) Additional Medical History: BONY, morbid obesity, RUEXT DVT - Alcohol/Substance Use Hx Alcohol Use: No History of Substance Use: reports: Cocaine - Smoking History Smoking history: Former smoker Have you smoked in the past 12 months: Yes Aproximately how many cigarettes per day: 3 If you are a former smoker, when did you quit?: 2016 (20+ pack year hx prior) - Social History Usual Living Arrangement: Alone ADL: Support Services (Mother moved in for some assistance) History of Recent Travel: No Home Medications - Allergies Allergies/Adverse Reactions: Allergies Allergy/AdvReac Type Severity Reaction Status Date / Time aspirin Allergy Verified 10/12/17 11:49 lactose AdvReac Verified 01/11/19 13:37 mushroom Allergy Unknown Uncoded 10/12/17 11:49 TURKEY Allergy Uncoded 10/12/17 11:49 - Home Medications Home Medications: Ambulatory Orders Ergocalciferol [Vitamin D2] 50,000 unit PO WEEKLY 05/10/15 Furosemide [Lasix -] 40 mg PO BID 05/10/15 Methimazole 10 mg PO DAILY 05/10/15 Rivaroxaban [Xarelto -] 20 mg PO DAILY 05/10/15 Vitamin B Complex 1 each PO DAILY 05/10/15 Timolol 0.5% [Timoptic 0.5%] 1 drop OU DAILY drops 05/15/15 Atorvastatin Ca [Lipitor] 10 mg PO DAILY 09/06/15 Albuterol 2.5/Ipratropium 0.5 [Duoneb -] 1 amp NEB QIDR amp 05/10/16 Dorzolamide HCl [Trusopt 2% -] 1 drop OU BID drops 10/20/17 Dexamethasone [Decadron -] 4 mg PO BID tablet 07/26/18 Lisinopril [Prinivil] 5 mg PO DAILY tablet 07/26/18 Nystatin Oral Suspension - [Nystatin Oral Susp 778492 Units/5 ML -] 500,000 units PO Q6HPO cup 07/26/18 Acetaminophen 650 mg PO QID PRN 01/09/19 Omeprazole 20 mg PO DAILY 01/09/19 Tramadol HCl [Ultram] 50 mg PO BID PRN 01/09/19 Review of Systems - Review of Systems Constitutional: reports: Lethargy, Weakness Eyes: reports: Blurred Vision HENT: reports: Difficult Swallowing, Throat Pain Neck: reports: Decreased ROM, Stiffness, Tenderness Cardiovascular: reports: Edema, Shortness of Breath Respiratory: reports: Exercise Intolerance, Orthopnea, SOB on Exertion, Wheezing Gastrointestinal: reports: Bloating Genitourinary: reports: No Symptoms Breasts: reports: No Symptoms Reported Musculoskeletal: reports: Decreased ROM, Extremity Pain, Joint Swelling, Muscle Cramps, Muscle Weakness Integumentary: reports: Pallor, Pruritis Neurological: reports: Confusion, Dizziness, Unsteady Gait, Weakness Endocrine: reports: Unexplained Weight Gain Physical Exam Vital Signs: Vital Signs Temperature 98.1 F 01/11/19 22:00 Pulse Rate 98 H 01/11/19 22:00 Respiratory Rate 20 01/11/19 22:00 Blood Pressure 106/61 01/11/19 22:00 O2 Sat by Pulse Oximetry (%) 98 01/11/19 20:18 Constitutional: Yes: Anxious Eyes: Yes: EOM Intact HENT: Yes: Normocephalic Neck: Yes: Trachea Midline, Thyromegaly Cardiovascular: Yes: Tachycardia, JVD Respiratory: Yes: On BiPap, Orthopnea, Rhonchi, SOB, Tachypnea, Wheezes Gastrointestinal: Yes: Normal Bowel Sounds Renal/: Yes: WNL Musculoskeletal: Yes: Back Pain, Joint Stiffness, Joint Swelling, Muscle Pain, Muscle Weakness Extremities: Yes: Cool, Delayed Capillary Refill Edema: Yes Edema: LLE: 2+, RLE: 2+ Neurological: Yes: Alert, Lethargy Labs: CBC, BMP 01/11/19 05:50 01/11/19 05:50 Problem List - Problems (1) Acute exacerbation of chronic obstructive pulmonary disease (COPD) Code(s): J44.1 - CHRONIC OBSTRUCTIVE PULMONARY DISEASE W (ACUTE) EXACERBATION (2) DVT (deep venous thrombosis) Code(s): I82.409 - ACUTE EMBOLISM AND THOMBOS UNSP DEEP VN UNSP LOWER EXTREMITY (3) Lower back pain Code(s): M54.5 - LOW BACK PAIN Qualifiers: Chronicity: acute Back pain laterality: midline Sciatica presence: without sciatica Qualified Code(s): M54.5 - Low back pain (4) Morbid obesity Code(s): E66.01 - MORBID (SEVERE) OBESITY DUE TO EXCESS CALORIES Assessment/Plan Current Active Problems hyperthyrodism,goiter Acute exacerbation of chronic obstructive pulmonary disease (COPD) (Acute) Anemia (Acute) DVT (deep venous thrombosis) (Acute) DVT of upper extremity (deep vein thrombosis) (Acute) Hyponatremia (Acute) Lower back pain (Acute) Morbid obesity (Acute) Poor perfusion of leg (Acute) Right leg pain (Acute) Tachycardia (Acute) Upper leg DVT (deep venous thromboembolism), chronic (Acute) Abnormal Lab Results 01/11/19 01/11/19 01/11/19 05:50 05:50 05:50 WBC 10.9 H MPV 7.1 L Absolute Neuts (auto) 9.8 H Neutrophils % 89.5 H Neutrophils % (Manual) 83.8 H Lymphocytes % 5.2 L Lymphocytes % (Manual) 7.1 L D Sodium 123 L Chloride 82 L Random Glucose 221 H Hemoglobin A1c % 8.8 H Total Bilirubin 1.2 H Alkaline Phosphatase 119 H Total Protein 5.8 L Albumin 3.1 L Laboratory Results - last 24 hr 01/11/19 01/11/19 01/11/19 05:50 05:50 05:50 WBC 10.9 H RBC 4.67 Hgb 15.2 Hct 43.9 MCV 94.0 MCH 32.5 MCHC 34.5 RDW 14.3 Plt Count 243 MPV 7.1 L Absolute Neuts (auto) 9.8 H Neutrophils % 89.5 H Neutrophils % (Manual) 83.8 H Band Neutrophils % 3.0 Lymphocytes % 5.2 L Lymphocytes % (Manual) 7.1 L D Monocytes % 4.9 Monocytes % (Manual) 4 Eosinophils % 0.0 D Eosinophils % (Manual) 0.0 Basophils % 0.4 Basophils % (Manual) 0.0 Myelocytes % (Man) 0 Promyelocytes % (Man) 0 Blast Cells % (Manual) 0 Nucleated RBC % 0 Metamyelocytes 1 D Hypochromia 0 Toxic Granulation 0 Dohle Bodies 0 Platelet Estimate Normal Polychromasia 0 Poikilocytosis 0 Basophilic Stippling 0 Anisocytosis 0 Microcytosis 0 Macrocytosis 0 Spherocytes 0 Sickle Cells 0 Target Cells 0 Tear Drop Cells 0 Ovalocytes 0 Stomatocytes 0 Helmet Cells 0 [place] Bodies 0 [place] Rings 0 [place] Cells 0 Acanthocytes (Spur) 0 Rouleaux 0 Fragmented RBCs 0 Schistocytes 0 Sodium 123 L Potassium 3.7 Chloride 82 L Carbon Dioxide 28 Anion Gap 12 BUN 14.1 Creatinine 0.7 Est GFR (CKD-EPI)AfAm 129.34 Est GFR (CKD-EPI)NonAf 111.59 Random Glucose 221 H Hemoglobin A1c % 8.8 H Calcium 9.2 Total Bilirubin 1.2 H AST 16 ALT 61 Alkaline Phosphatase 119 H Total Protein 5.8 L Albumin 3.1 L Laboratory Tests 07/14/18 01/11/19 07:55 05:50 Hemoglobin A1c % 8.8 H TSH 0.27 L D plan: bgm achs novolog scale levemir bid doses tapazole 10mg po steroids for copd/pneumonia
[2019-01-12] MEDS ORDERED: PT OWN MED DRAWER 7, Y5N ONE ×3 (00:08→14:12)
[2019-01-12] MEDS ORDERED: PIPERACILLIN/TAZOBACTAM 4.5 GM VIAL IVPB ONE ×3 (00:10→16:33)
[2019-01-12] MEDS ORDERED: DEXTROSE 5%-WATER 100 ML IVPB ONE ×2 (00:10→08:48)
[2019-01-12] MEDS: VANCOMYCIN 1,250 MG in DEXTROSE 5%-WATER - 250 ML IVPB SCH ×2 (00:30→15:07)
[2019-01-12] MEDS: methylPREDNISolone NA SUCC 40 MG/1 ML VIAL IVPUSH SCH ×5 (00:31→21:18)
[2019-01-12] MEDS: PIPERACILLIN/TAZOB 4.5 GM 4.5 GM in DEXTROSE 5%-WATER 100 ML IVPB SCH ×2 (02:17→09:05)
[2019-01-12] MEDS: INSULIN SLIDING SCALE (NOVOLOG) 1 VIAL SQ SCH ×4 (06:01→21:18)
[2019-01-12] MEDS: FUROSEMIDE 40 MG/4 ML INJECTABLE VIAL IVPUSH SCH ×2 (06:01→15:18)
[2019-01-12] MEDS: PANTOPRAZOLE 20 MG TABLET (FP) PO SCH (06:02)
[2019-01-12] MEDS: ALBUTEROL SO4 2.5/IPRATROPIUM 0.5 INH SOL 3 ML VIAL.NEB. NEB SCH ×4 (08:55→19:34)
[2019-01-12] MEDS: METHIMAZOLE 10 MG TABLET (FP) PO SCH (10:50)
[2019-01-12] MEDS: DORZOLAMIDE 2% HCL OPHTHALMIC SOLUTION 10 ML BOTTLE OU SCH ×2 (10:50→21:18)
[2019-01-12] MEDS ORDERED: INSULIN (LEVEMIR) 100 UNITS/ML UNITS SQ ONE (11:14)
[2019-01-12] MEDS: predniSONE 10 MG TABLET (UD) PO SCH (11:33)
--- NOTE | 2019-01-12 12:27 | PN ---
Progress Note, Physician Chief Complaint: patient seen and examined in bed BGM noted around 252 complaining of leg swelling - Current Medication List Current Medications: Active Medications Acetaminophen (Tylenol -) 650 mg PO Q6H PRN PRN Reason: PAIN LEVEL 1-5 Albuterol/Ipratropium (Duoneb -) 1 amp NEB RQID [facility] Last Admin: 01/12/19 08:55 Dose: Not Given Atorvastatin Calcium (Lipitor -) 10 mg PO HS [facility] Last Admin: 01/11/19 21:18 Dose: 10 mg Dorzolamide HCl (Trusopt 2%) 1 drop OU BID [facility] Last Admin: 01/12/19 10:50 Dose: 1 drop Furosemide (Lasix Injection -) 40 mg IVPUSH BID@0600,1400 [facility] Last Admin: 01/12/19 06:01 Dose: Not Given Piperacillin Sod/Tazobactam (Sod 4.5 gm/ Dextrose) 100 mls @ 200 mls/hr IVPB Q8H-IV [facility]; Protocol Last Admin: 01/12/19 09:05 Dose: 200 mls/hr Vancomycin HCl 1,250 mg/ (Dextrose) 250 mls @ 166.667 mls/hr IVPB Q12H [facility]; Protocol Last Admin: 01/12/19 00:30 Dose: 166.667 mls/hr Insulin Aspart (Novolog Vial Sliding Scale -) 1 vial SQ ACHS [facility]; Protocol Last Admin: 01/12/19 10:55 Dose: Not Given Insulin Detemir (Levemir Vial) 10 units SQ [facility] Methimazole (Tapazole -) 10 mg PO DAILY [facility] Last Admin: 01/12/19 10:50 Dose: 10 mg Methylprednisolone Sodium Succinate (Solu-Medrol -) 40 mg IVPUSH Q6H-IV [facility] Last Admin: 01/12/19 09:02 Dose: 40 mg Nystatin (Nystatin Oral Suspension -) 500,000 units PO Q6HPO [facility] Rivaroxaban (Xarelto) 20 mg PO DAILY@1800 [facility] Last Admin: 01/11/19 17:12 Dose: 20 mg Tramadol HCl (Ultram -) 50 mg PO BID PRN PRN Reason: PAIN LEVEL 7 - 10 Last Admin: 01/11/19 11:57 Dose: 50 mg - Objective Vital Signs: Vital Signs Temperature 98.6 F 01/12/19 10:00 Pulse Rate 103 H 01/12/19 10:00 Respiratory Rate 20 01/12/19 10:00 Blood Pressure 126/65 01/12/19 10:00 O2 Sat by Pulse Oximetry (%) 100 01/12/19 09:58 Constitutional: Yes: Calm, Obese Cardiovascular: Yes: Regular Rate and Rhythm, S1, S2 Respiratory: Yes: Diminished, On Nasal O2 Gastrointestinal: Yes: Soft, Abdomen, Obese Extremities: Yes: Other (chronic venous stasis changes) Edema: Yes Neurological: Yes: Alert, Oriented Labs: CBC, BMP 01/11/19 05:50 01/11/19 05:50 INR, PTT INR 1.69 (0.83-1.09) H 01/09/19 17:55 Problem List - Problems (1) Hyperglycemia Assessment/Plan: hgAC1 noted 8.8 started on levemir bid endocrine note appreciated Code(s): R73.9 - HYPERGLYCEMIA, UNSPECIFIED (2) Acute exacerbation of chronic obstructive pulmonary disease (COPD) Assessment/Plan: stop oral prenisone on iv medrol q6hr on iv abx check vano trough Code(s): J44.1 - CHRONIC OBSTRUCTIVE PULMONARY DISEASE W (ACUTE) EXACERBATION (3) Hyponatremia Assessment/Plan: seen by renal fluid restriction will monitor Code(s): E87.1 - HYPO-OSMOLALITY AND HYPONATREMIA (4) DVT of upper extremity (deep vein thrombosis) Assessment/Plan: on xarelto remove SCD Code(s): I82.629 - ACUTE EMBOLISM AND THROMBOSIS OF DEEP VN UNSP UP EXTREM (5) Thrush, oral Assessment/Plan: nystatin swish spit Code(s): B37.0 - CANDIDAL STOMATITIS (6) Hyperthyroidism Assessment/Plan: tapazole Code(s): E05.90 - THYROTOXICOSIS, UNSP WITHOUT THYROTOXIC CRISIS OR STORM (7) Pneumonia Assessment/Plan: vanco and zosyn 'check vanco trough Code(s): J18.9 - PNEUMONIA, UNSPECIFIED ORGANISM
[2019-01-12] MEDS ORDERED: MINERAL OIL/PETROLAT/WATER TOPICAL CREAM 454 GM JAR TP PRN (12:28)
--- NOTE | 2019-01-12 13:02 | PN ---
Progress Note, Physician Chief Complaint: Pt alert, but falls asleep easily during conversation. Denies chest pain; + dyspnea on mild exertion. History of Present Illness: 48-year-old black male coming from a fdc with a past medical history of he morbid obesity, COPD, CHF, hypertension, hyperlipidemia, ASA, hypothyroidism and DVT who is is maintained on 3 L oxygen nasal cannula Medical history significant for acute on chronic respiratory failure with hypoxia and hypercapnia, previous intubations, pneumonia, DVT, glaucoma, hyperlipidemia, hypertension - Current Medication List Current Medications: Active Medications Acetaminophen (Tylenol -) 650 mg PO Q6H PRN PRN Reason: PAIN LEVEL 1-5 Albuterol/Ipratropium (Duoneb -) 1 amp NEB RQID [facility] Last Admin: 01/12/19 08:55 Dose: Not Given Atorvastatin Calcium (Lipitor -) 10 mg PO HS [facility] Last Admin: 01/11/19 21:18 Dose: 10 mg Dorzolamide HCl (Trusopt 2%) 1 drop OU BID [facility] Last Admin: 01/12/19 10:50 Dose: 1 drop Furosemide (Lasix Injection -) 40 mg IVPUSH BID@0600,1400 [facility] Last Admin: 01/12/19 06:01 Dose: Not Given Piperacillin Sod/Tazobactam (Sod 4.5 gm/ Dextrose) 100 mls @ 200 mls/hr IVPB Q8H-IV [facility]; Protocol Last Admin: 01/12/19 09:05 Dose: 200 mls/hr Vancomycin HCl 1,250 mg/ (Dextrose) 250 mls @ 166.667 mls/hr IVPB Q12H [facility]; Protocol Last Admin: 01/12/19 00:30 Dose: 166.667 mls/hr Insulin Aspart (Novolog Vial Sliding Scale -) 1 vial SQ ACHS [facility]; Protocol Last Admin: 01/12/19 10:55 Dose: Not Given Insulin Detemir (Levemir Vial) 10 units SQ [facility] Methimazole (Tapazole -) 10 mg PO DAILY [facility] Last Admin: 01/12/19 10:50 Dose: 10 mg Methylprednisolone Sodium Succinate (Solu-Medrol -) 40 mg IVPUSH Q6H-IV [facility] Last Admin: 01/12/19 09:02 Dose: 40 mg Multi-Ingredient Lotion (Eucerin (Large Jar) -) 1 applic TP BID PRN PRN Reason: DRY SKIN Nystatin (Nystatin Oral Suspension -) 500,000 units PO Q6HPO [facility] Rivaroxaban (Xarelto) 20 mg PO DAILY@1800 [facility] Last Admin: 01/11/19 17:12 Dose: 20 mg Tramadol HCl (Ultram -) 50 mg PO BID PRN PRN Reason: PAIN LEVEL 7 - 10 Last Admin: 01/11/19 11:57 Dose: 50 mg - Objective Vital Signs: Vital Signs Temperature 98.6 F 01/12/19 10:00 Pulse Rate 103 H 01/12/19 10:00 Respiratory Rate 20 01/12/19 10:00 Blood Pressure 126/65 01/12/19 10:00 O2 Sat by Pulse Oximetry (%) 100 01/12/19 09:58 Constitutional: Yes: Obese Eyes: Yes: WNL, Sclera Icterus Neck: Yes: Decreased ROM Cardiovascular: Yes: S1, S2, S4 Respiratory: Yes: Diminished Gastrointestinal: Yes: Abdomen, Obese ...Rectal Exam: Yes: Deferred Genitourinary: No: Anuria Breast(s): Yes: WNL Musculoskeletal: Yes: Back Pain, Joint Stiffness, Joint Swelling, Muscle Weakness Extremities: Yes: Cool Edema: Yes Edema: LLE: 3+, RLE: 3+ Peripheral Pulses WNL: No Peripheral Pulses: Left Doralis Pedis: 1+, Right Dorsalis Pedis: 1+ Integumentary: Yes: Venous Stasis Changes Neurological: Yes: Alert, Oriented, Unsteady Gait, Weakness Psychiatric: Yes: Alert, Oriented, Other (addictions) Labs: CBC, BMP 01/11/19 05:50 01/11/19 05:50 INR, PTT INR 1.69 (0.83-1.09) H 01/09/19 17:55 Problem List - Problems (1) Acute exacerbation of chronic obstructive pulmonary disease (COPD) Code(s): J44.1 - CHRONIC OBSTRUCTIVE PULMONARY DISEASE W (ACUTE) EXACERBATION (2) Hyponatremia Code(s): E87.1 - HYPO-OSMOLALITY AND HYPONATREMIA (3) Lower back pain Code(s): M54.5 - LOW BACK PAIN Qualifiers: Chronicity: acute Back pain laterality: midline Sciatica presence: without sciatica Qualified Code(s): M54.5 - Low back pain (4) Morbid obesity Assessment/Plan: Pt says he has been scheduled for gastric bypass surgery in the past, but, for various reasons, it has not been carried out. Prognosis is poor with dietary modification and dramatic weight loss. Code(s): E66.01 - MORBID (SEVERE) OBESITY DUE TO EXCESS CALORIES (5) Acute on chronic diastolic CHF (congestive heart failure) Assessment/Plan: ECHO: normal LVEF; limited study otherwise. F/u BUN/Cr, electrolytes, daily weight, Is and Os. Code(s): I50.33 - ACUTE ON CHRONIC DIASTOLIC (CONGESTIVE) HEART FAILURE (6) Acute on chronic respiratory failure with hypoxia and hypercapnia Code(s): J96.21 - ACUTE AND CHRONIC RESPIRATORY FAILURE WITH HYPOXIA; J96.22 - ACUTE AND CHRONIC RESPIRATORY FAILURE WITH HYPERCAPNIA (7) Bilateral lower extremity edema Code(s): R60.0 - LOCALIZED EDEMA (8) Depression Code(s): F32.9 - MAJOR DEPRESSIVE DISORDER, SINGLE EPISODE, UNSPECIFIED (9) [place] cardiac risk >20% in next 10 years Code(s): Z91.89 - OTH PERSONAL RISK FACTORS, NOT ELSEWHERE CLASSIFIED (10) HTN (hypertension) Code(s): I10 - ESSENTIAL (PRIMARY) HYPERTENSION (11) Hx of deep venous thrombosis Code(s): Z86.718 - PERSONAL HISTORY OF OTHER VENOUS THROMBOSIS AND EMBOLISM (12) Hyperlipidemia Code(s): E78.5 - HYPERLIPIDEMIA, UNSPECIFIED (13) Moderate to severe pulmonary hypertension Code(s): I27.2 - OTHER SECONDARY PULMONARY HYPERTENSION * DO NOT USE * (14) Obstructive apnea Code(s): G47.33 - OBSTRUCTIVE SLEEP APNEA (ADULT) (PEDIATRIC) (15) Diabetes Assessment/Plan: Add ACEI if BP allows and pt has no other contraiindications. Code(s): E11.9 - TYPE 2 DIABETES MELLITUS WITHOUT COMPLICATIONS (16) Hyperthyroidism Assessment/Plan: f/u TFTs Code(s): E05.90 - THYROTOXICOSIS, UNSP WITHOUT THYROTOXIC CRISIS OR STORM
--- NOTE | 2019-01-12 13:34 | PN ---
Progress Note (short form) - Note Progress Note: PULMONARY Somnolent but arousable. c/o leg swelling. Vital Signs Period Temp Pulse Resp BP Sys/[place] Pulse Ox Last 24 Hr 97.3 F-98.7 F 98-107 14-21 80-126/50-68 98-100 Intake & Output 01/09/19 01/10/19 01/11/19 01/12/19 23:59 23:59 23:59 23:59 Intake Total 550 1020 450 Output Total 350 950 200 Balance 200 70 250 Weight 158.757 kg 154.221 kg 149.05 kg Gen: somnolent Heart: RRR Lung: decreased breath sounds at the bases Abd: soft, nontender, obese Ext:no edema CBC, BMP 01/11/19 05:50 01/11/19 05:50 Active Medications Acetaminophen (Tylenol -) 650 mg PO Q6H PRN PRN Reason: PAIN LEVEL 1-5 Albuterol/Ipratropium (Duoneb -) 1 amp NEB RQID [facility] Last Admin: 01/12/19 08:55 Dose: Not Given Atorvastatin Calcium (Lipitor -) 10 mg PO HS [facility] Last Admin: 01/11/19 21:18 Dose: 10 mg Dorzolamide HCl (Trusopt 2%) 1 drop OU BID [facility] Last Admin: 01/12/19 10:50 Dose: 1 drop Furosemide (Lasix Injection -) 40 mg IVPUSH BID@0600,1400 [facility] Last Admin: 01/12/19 06:01 Dose: Not Given Piperacillin Sod/Tazobactam (Sod 4.5 gm/ Dextrose) 100 mls @ 200 mls/hr IVPB Q8H-IV [facility]; Protocol Last Admin: 01/12/19 09:05 Dose: 200 mls/hr Vancomycin HCl 1,250 mg/ (Dextrose) 250 mls @ 166.667 mls/hr IVPB Q12H [facility]; Protocol Last Admin: 01/12/19 00:30 Dose: 166.667 mls/hr Insulin Aspart (Novolog Vial Sliding Scale -) 1 vial SQ ACHS [facility]; Protocol Last Admin: 01/12/19 10:55 Dose: Not Given Insulin Detemir (Levemir Vial) 10 units SQ HS [facility] Methimazole (Tapazole -) 10 mg PO DAILY [facility] Last Admin: 01/12/19 10:50 Dose: 10 mg Methylprednisolone Sodium Succinate (Solu-Medrol -) 40 mg IVPUSH Q6H-IV [facility] Last Admin: 01/12/19 09:02 Dose: 40 mg Multi-Ingredient Lotion (Eucerin (Large Jar) -) 1 applic TP BID PRN PRN Reason: DRY SKIN Nystatin (Nystatin Oral Suspension -) 500,000 units PO Q6HPO [facility] Rivaroxaban (Xarelto) 20 mg PO DAILY@1800 [facility] Last Admin: 01/11/19 17:12 Dose: 20 mg Tramadol HCl (Ultram -) 50 mg PO BID PRN PRN Reason: PAIN LEVEL 7 - 10 Last Admin: 01/11/19 11:57 Dose: 50 mg A/P Acute on Chronic Diastolic Heart Failure Volume Overload Hyponatremia Morbid Obesity Obstructive Sleep Apnea Obesity Hypoventilation Syndrome COPD Anemia h/o DVT HTN UTI - IV lasix - monitor urine output, creatinine - keep net negative - O2 to keep SpO2 >90% - inhaled bronchodilators - empiric antibiotics - BiPAP at night and PRN during day - continue anticoagulation - antibiotics for UTI, do not suspect pneumonia - can d/c steroids, do not suspect acute COPD exacerbation at this time Problem List - Problems (1) Acute on chronic diastolic CHF (congestive heart failure) Code(s): I50.33 - ACUTE ON CHRONIC DIASTOLIC (CONGESTIVE) HEART FAILURE (2) Morbid (severe) obesity due to excess calories Code(s): E66.01 - MORBID (SEVERE) OBESITY DUE TO EXCESS CALORIES
--- NOTE | 2019-01-12 15:33 | PN ---
Progress Note (short form) - Note Progress Note: Renal follow up for hyponatremia Seen and examined at the bedside. awake and alert reports that SOB is improved denies any confusion, lethargy or weakness making urine via wilhelm Vital Signs Temperature 98.0 F 01/11/19 08:00 Pulse Rate 94 H 01/11/19 08:00 Respiratory Rate 18 01/11/19 08:00 Blood Pressure 110/70 01/11/19 08:00 O2 Sat by Pulse Oximetry (%) 98 01/11/19 07:45 Intake & Output 01/08/19 01/09/19 01/10/19 01/11/19 23:59 23:59 23:59 23:59 Intake Total 550 470 Output Total 350 300 Balance 200 170 Weight 158.757 kg 154.448 kg NAD trace LE edema CBC, BMP 01/11/19 05:50 01/11/19 05:50 Current Medications Acetaminophen (Tylenol -) 650 mg PO Q6H PRN PRN Reason: PAIN LEVEL 1-5 Albuterol/Ipratropium (Duoneb -) 1 amp NEB RQID [facility] Last Admin: 01/11/19 11:30 Dose: 1 amp Atorvastatin Calcium (Lipitor -) 10 mg PO HS [facility] Last Admin: 01/11/19 00:11 Dose: 10 mg Dorzolamide HCl (Trusopt 2%) 1 drop OU BID [facility] Last Admin: 01/11/19 11:18 Dose: 1 drop Furosemide (Lasix Injection -) 40 mg IVPUSH BID@0600,1400 [facility] Last Admin: 01/11/19 06:26 Dose: 40 mg Piperacillin Sod/Tazobactam (Sod 4.5 gm/ Dextrose) 100 mls @ 200 mls/hr IVPB Q8H-IV [facility]; Protocol Last Admin: 01/11/19 11:16 Dose: 200 mls/hr Vancomycin HCl 1,250 mg/ (Dextrose) 250 mls @ 166.667 mls/hr IVPB Q12H [facility]; Protocol Last Admin: 01/11/19 01:47 Dose: 166.667 mls/hr Methimazole (Tapazole -) 10 mg PO DAILY [facility] Last Admin: 01/10/19 11:30 Dose: 10 mg Pantoprazole Sodium (Protonix -) 20 mg PO ACBK [facility] Last Admin: 01/11/19 06:26 Dose: 20 mg Prednisone (Deltasone -) 30 mg PO DAILY [facility] Stop: 01/16/19 23:59 Last Admin: 01/11/19 11:17 Dose: 30 mg Rivaroxaban (Xarelto) 20 mg PO DAILY@1800 [facility] Last Admin: 01/10/19 17:42 Dose: 20 mg Tramadol HCl (Ultram -) 50 mg PO BID PRN PRN Reason: PAIN LEVEL 7 - 10 Last Admin: 01/11/19 11:57 Dose: 50 mg 48 year old gentleman with history of morbid obesity, COPD, BONY , diastolic heart failure, anemia, hypertension, hypothyrodism, DVT presented with back pain from the MI and found to have hyponatremia with serum Na of 123. 1. Hypervolemic hyponatremia 2. Diastolic CHF with pleural effusions 3. Acute on chronic lower back pain 4. Morbid obesity 5. COPD/BONY no new labs available to review today Pt is making ~1000cc of urine with IV Lasix noted that Vanco and zosyn as being diluted in D5W that may be further contributing to hyponatremia. Will change dilution to NS. Check BMP in AM titrate Lasix to achieve significant volume loss pain control Thank you Dennis Aldana DO
[2019-01-12] MEDS ORDERED: SODIUM CHLORIDE 100 ML IVPB ONE (16:33)
[2019-01-12] MEDS: PIPERACILLIN/TAZOB 4.5 GM 4.5 GM in SODIUM CHLORIDE 100 ML IVPB SCH (17:33)
[2019-01-12] MEDS: RIVAROXABAN 20 MG TABLET PO SCH (17:33)
[2019-01-12] MEDS: NYSTATIN 500,000 UNITS/5 ML SUSPENSION PO SCH ×2 (17:33→23:19)
[2019-01-12] MEDS: traMADol HCL 50 MG TABLET PO PRN (18:02)
--- NOTE | 2019-01-12 18:28 | CON.ENT ---
Consult Consult Specialty:: ENT Referred by:: Dr. Randall Reason for Consultation:: thyromegaly - History of Present Illness Chief Complaint: enlarged thyroid History of Present Illness: pt with known thyromegaly was seen on CT scan , patient had head and neck surgery evaluation at [place] (Dr. Joon Waite) in 2015 and thyroidectomy recommended thyroid enlargement evident on examination, continues to show on imaging studies per prior records prior biopsies have been negative also hx morbid obesity, obstructive sleep apnea syndrome patient also complains ofhearing loss, has television volume extremely loud in his hospital room states he does not have hearing aids but needs them. - History Source History Provided By: Patient, Medical Record Limitations to Obtaining History: No Limitations - Past Medical History Cardio/Vascular: Yes: CHF, Deep Vein Thrombosis, HTN, Hyperlipdemia, Other ( chronic peripheral edema) Pulmonary: Yes: Asthma, COPD, O2 Dependent (3L), Pneumonia, Sleep Apnea, Other ( BONY on bipap at night) Gastrointestinal: Yes: GERD, GI Bleed (history of UGI bleed) Psych: Yes: Addictions Musculoskeletal: Yes: Chronic low back pain, Other (bilateral LE chronic edema and weakness) ENT: Yes: Other (left ear [place]) Endocrine: Yes: Hyperthyroidism, Other (morbid obesity thyroid goiter) Dermatology: Yes: Other (chronic bilateral venostasis) Additional Medical History: BONY, morbid obesity, RUEXT DVT - Alcohol/Substance Use Hx Alcohol Use: No History of Substance Use: reports: Cocaine - Smoking History Smoking history: Former smoker Have you smoked in the past 12 months: Yes Aproximately how many cigarettes per day: 3 If you are a former smoker, when did you quit?: 2016 (20+ pack year hx prior) - Social History Usual Living Arrangement: Alone ADL: Support Services (Mother moved in for some assistance) History of Recent Travel: No Home Medications - Allergies Allergies/Adverse Reactions: Allergies Allergy/AdvReac Type Severity Reaction Status Date / Time aspirin Allergy Verified 10/12/17 11:49 lactose AdvReac Verified 01/11/19 13:37 mushroom Allergy Unknown Uncoded 10/12/17 11:49 TURKEY Allergy Uncoded 10/12/17 11:49 - Home Medications Home Medications: Ambulatory Orders Ergocalciferol [Vitamin D2] 50,000 unit PO WEEKLY 05/10/15 Furosemide [Lasix -] 40 mg PO BID 05/10/15 Methimazole 10 mg PO DAILY 05/10/15 Rivaroxaban [Xarelto -] 20 mg PO DAILY 05/10/15 Vitamin B Complex 1 each PO DAILY 05/10/15 Timolol 0.5% [Timoptic 0.5%] 1 drop OU DAILY drops 05/15/15 Atorvastatin Ca [Lipitor] 10 mg PO DAILY 09/06/15 Albuterol 2.5/Ipratropium 0.5 [Duoneb -] 1 amp NEB QIDR amp 05/10/16 Dorzolamide HCl [Trusopt 2% -] 1 drop OU BID drops 10/20/17 Dexamethasone [Decadron -] 4 mg PO BID tablet 07/26/18 Lisinopril [Prinivil] 5 mg PO DAILY tablet 07/26/18 Nystatin Oral Suspension - [Nystatin Oral Susp 926304 Units/5 ML -] 500,000 units PO Q6HPO cup 07/26/18 Acetaminophen 650 mg PO QID PRN 01/09/19 Omeprazole 20 mg PO DAILY 01/09/19 Tramadol HCl [Ultram] 50 mg PO BID PRN 01/09/19 Physical Exam-ENT Vital Signs: Vital Signs Temperature 97.5 F L 01/12/19 13:45 Pulse Rate 98 H 01/12/19 13:45 Respiratory Rate 16 01/12/19 13:45 Blood Pressure 105/73 01/12/19 15:22 O2 Sat by Pulse Oximetry (%) 100 01/12/19 09:58 Constitutional: Yes: No Distress, Obese Head: Yes: WNL Face: Yes: WNL Eyes: Yes: WNL Nose: Yes: Other (septum intact, mucosa dry, crusted, no pus no bleeding, nasal cannula present) Oral/Pharynx: Yes: Other (oral cavity WNL, oropharynx crowded, tongue position 3 , soft palate elongated) Outer Ear: Yes: WNL Ear Canal: Yes: Cerumen (some cerumen left canal) Tympanic Membrane: Yes: WNL Neck: Yes: Thyromegaly, Other (massive anterior neck/submandibular adipose tissue) Neurological: Yes: WNL, Alert Imaging - Results Cat Scan: Report Reviewed, Image Reviewed ( CT neck and CT chest - marked thyromegaly right greater than left with large nodule and tracheal deviation) Problem List - Problems (1) Thyromegaly Assessment/Plan: severe thyroid enlargement, large nodule right 6 cm tracheal deviation, minimal substernal extension pt had prior Head and Neck Surgery evaluation at [place] [address] Joon Waite thyroidectomy recommended Recommend: monitor thyroid function as per Dr. Hannon return to Head and Neck Surgery at [place] or other medical center after discharge Code(s): E01.0 - IODINE-DEFICIENCY RELATED DIFFUSE (ENDEMIC) GOITER (2) Rhinitis Assessment/Plan: significantnasal dryness with crusting nasal oxygen contributory advise: nasal saline spray Code(s): J31.0 - CHRONIC RHINITIS (3) Hearing loss Assessment/Plan: pt complains of hearing loss both ears does not have hearing aids, but says he needs them obviously hard of hearing clinically, difficulty hearing conversation and television (volume extremely loud in hospital room)( Recommend: patient needs complete audiogram after discharge candidate for hearing aids medically cleared for hearing aid use Code(s): H91.90 - UNSPECIFIED HEARING LOSS, UNSPECIFIED EAR (4) Sleep apnea Assessment/Plan: associated with his morbid obesity CPAP or BIPAP therapy as per pulmonary medicine Code(s): G47.30 - SLEEP APNEA, UNSPECIFIED
[2019-01-12] MEDS: ATORVASTATIN CA 10 MG TABLET (FP) PO SCH (21:12)
[2019-01-12] MEDS: INSULIN (LEVEMIR) 100 UNITS/ML UNITS SQ SCH (21:17)
[2019-01-13] MEDS ORDERED: PIPERACILLIN/TAZOBACTAM 4.5 GM VIAL IVPB ONE ×4 (01:05→19:48)
[2019-01-13] MEDS ORDERED: PT OWN MED DRAWER 7, Y5N ONE ×4 (01:05→18:28)
[2019-01-13] MEDS ORDERED: SODIUM CHLORIDE 100 ML IVPB ONE ×4 (01:05→19:48)
[2019-01-13] MEDS: PIPERACILLIN/TAZOB 4.5 GM 4.5 GM in SODIUM CHLORIDE 100 ML IVPB SCH ×3 (01:22→20:20)
[2019-01-13] MEDS: methylPREDNISolone NA SUCC 40 MG/1 ML VIAL IVPUSH SCH ×2 (02:59→09:27)
[2019-01-13] MEDS ORDERED: VANCOMYCIN HCL 1,250 MG in SODIUM CHLORIDE 250 ML IVPB SCH (03:00)
[2019-01-13] MEDS: NYSTATIN 500,000 UNITS/5 ML SUSPENSION PO SCH ×3 (06:25→17:14)
[2019-01-13] MEDS: INSULIN SLIDING SCALE (NOVOLOG) 1 VIAL SQ SCH ×3 (06:25→16:52)
[2019-01-13] MEDS: FUROSEMIDE 40 MG/4 ML INJECTABLE VIAL IVPUSH SCH ×2 (06:26→13:49)
--- NOTE | 2019-01-13 07:03 | PN ---
Progress Note, Physician - Current Medication List Current Medications: Active Medications Acetaminophen (Tylenol -) 650 mg PO Q6H PRN PRN Reason: PAIN LEVEL 1-5 Albuterol/Ipratropium (Duoneb -) 1 amp NEB RQID [facility] Last Admin: 01/12/19 19:34 Dose: 1 amp Atorvastatin Calcium (Lipitor -) 10 mg PO HS [facility] Last Admin: 01/12/19 21:12 Dose: 10 mg Dorzolamide HCl (Trusopt 2%) 1 drop OU BID [facility] Last Admin: 01/12/19 21:18 Dose: 1 drop Furosemide (Lasix Injection -) 40 mg IVPUSH BID@0600,1400 [facility] Last Admin: 01/13/19 06:26 Dose: 40 mg Vancomycin HCl 1,250 mg/ (Sodium Chloride) 250 mls @ 166.667 mls/hr IVPB Q12H [facility]; Protocol Last Admin: 01/13/19 02:59 Dose: 166.667 mls/hr Piperacillin Sod/Tazobactam (Sod 4.5 gm/ Sodium Chloride) 100 mls @ 200 mls/hr IVPB Q8H-IV [facility]; Protocol Last Admin: 01/13/19 01:22 Dose: 200 mls/hr Insulin Aspart (Novolog Vial Sliding Scale -) 1 vial SQ [facility]; Protocol Last Admin: 01/13/19 06:25 Dose: 8 units Insulin Detemir (Levemir Vial) 10 units SQ HS [facility] Last Admin: 01/12/19 21:17 Dose: 10 units Methimazole (Tapazole -) 10 mg PO DAILY [facility] Last Admin: 01/12/19 10:50 Dose: 10 mg Methylprednisolone Sodium Succinate (Solu-Medrol -) 40 mg IVPUSH Q6H-IV [facility] Last Admin: 01/13/19 02:59 Dose: 40 mg Multi-Ingredient Lotion (Eucerin (Large Jar) -) 1 applic TP BID PRN PRN Reason: DRY SKIN Nystatin (Nystatin Oral Suspension -) 500,000 units PO Q6HPO [facility] Last Admin: 01/13/19 06:25 Dose: 500,000 units Rivaroxaban (Xarelto) 20 mg PO DAILY@1800 [facility] Last Admin: 01/12/19 17:33 Dose: 20 mg Tramadol HCl (Ultram -) 50 mg PO BID PRN PRN Reason: PAIN LEVEL 7 - 10 Last Admin: 01/12/19 18:02 Dose: 50 mg - Objective Vital Signs: Vital Signs Temperature 97.2 F L 01/13/19 06:00 Pulse Rate 94 H 01/13/19 06:00 Respiratory Rate 16 01/13/19 06:00 Blood Pressure 114/59 L 01/13/19 06:00 O2 Sat by Pulse Oximetry (%) 100 01/13/19 06:23 Labs: CBC, BMP 01/11/19 05:50 01/11/19 05:50 INR, PTT INR 1.69 (0.83-1.09) H 01/09/19 17:55
[2019-01-13] MEDS: ALBUTEROL SO4 2.5/IPRATROPIUM 0.5 INH SOL 3 ML VIAL.NEB. NEB SCH ×4 (07:52→20:10)
[2019-01-13] MEDS: METHIMAZOLE 10 MG TABLET (FP) PO SCH (09:27)
[2019-01-13] MEDS: DORZOLAMIDE 2% HCL OPHTHALMIC SOLUTION 10 ML BOTTLE OU SCH ×2 (09:35→22:39)
[2019-01-13 10:35] LABS: HEMATOCRIT 41.1 % (35.4-49); HEMOGLOBIN 14.2 GM/dL (11.7-16.9); MCH 32.2 pg (25.7-33.7); MCHC 34.5 g/dl (32.0-35.9); MEAN CELL VOLUME 93.3 fl (80-96); MEAN PLT VOLUME 7.2 fl (7.5-11.1); PLATELET COUNT 246 K/MM3 (134-434); RBC 4.41 M/mm3 (4.00-5.60); RDW 13.5 % (11.9-15.9); WHITE BLOOD COUNT 13.9 K/mm3 (4.0-10.0)
[2019-01-13 11:18] LABS: ALBUMIN 2.8 g/dl (3.4-5.0); BILIRUBIN,TOTAL 0.9 mg/dL (0.2-1); BLOOD UREA NITROGEN 14.8 mg/dL (7-18); CALCIUM 9.4 mg/dL (8.5-10.1); CREATININE 1.1 mg/dL (0.55-1.3); POTASSIUM 3.9 mmol/L (3.5-5.1); TOT PROT 5.5 g/dl (6.4-8.2)
--- NOTE | 2019-01-13 13:03 | PN ---
Progress Note, Physician History of Present Illness: PULMONARY DROWSY,AROUSABLE,NO DISTRESS,C/O LOWER EXT WEAKNESS - Current Medication List Current Medications: Active Medications Acetaminophen (Tylenol -) 650 mg PO Q6H PRN PRN Reason: PAIN LEVEL 1-5 Albuterol/Ipratropium (Duoneb -) 1 amp NEB RQID [facility] Last Admin: 01/13/19 11:09 Dose: 1 amp Atorvastatin Calcium (Lipitor -) 10 mg PO HS [facility] Last Admin: 01/12/19 21:12 Dose: 10 mg Dorzolamide HCl (Trusopt 2%) 1 drop OU BID [facility] Last Admin: 01/13/19 09:35 Dose: 1 drop Furosemide (Lasix Injection -) 40 mg IVPUSH BID@0600,1400 [facility] Last Admin: 01/13/19 06:26 Dose: 40 mg Piperacillin Sod/Tazobactam (Sod 4.5 gm/ Sodium Chloride) 100 mls @ 200 mls/hr IVPB Q8H-IV [facility]; Protocol Last Admin: 01/13/19 09:28 Dose: 200 mls/hr Insulin Aspart (Novolog Vial Sliding Scale -) 1 vial SQ ACHS [facility]; Protocol Last Admin: 01/13/19 11:43 Dose: 7 units Insulin Detemir (Levemir Vial) 10 units SQ [facility] Last Admin: 01/12/19 21:17 Dose: 10 units Methimazole (Tapazole -) 10 mg PO DAILY [facility] Last Admin: 01/13/19 09:27 Dose: 10 mg Multi-Ingredient Lotion (Eucerin (Large Jar) -) 1 applic TP BID PRN PRN Reason: DRY SKIN Nystatin (Nystatin Oral Suspension -) 500,000 units PO Q6HPO [facility] Last Admin: 01/13/19 11:41 Dose: 500,000 units Rivaroxaban (Xarelto) 20 mg PO DAILY@1800 [facility] Last Admin: 01/12/19 17:33 Dose: 20 mg Tramadol HCl (Ultram -) 50 mg PO BID PRN PRN Reason: PAIN LEVEL 7 - 10 Last Admin: 01/12/19 18:02 Dose: 50 mg - Objective Vital Signs: Vital Signs Temperature 97.8 F 01/13/19 09:36 Pulse Rate 63 01/13/19 09:36 Respiratory Rate 18 01/13/19 09:36 Blood Pressure 136/48 L 01/13/19 09:36 O2 Sat by Pulse Oximetry (%) 95 01/13/19 07:52 Constitutional: Yes: Calm, Obese Eyes: Yes: WNL HENT: Yes: WNL Neck: Yes: WNL Cardiovascular: Yes: Regular Rate and Rhythm, S1, S2 Respiratory: Yes: Diminished Gastrointestinal: Yes: Normal Bowel Sounds, Abdomen, Obese Extremities: Yes: WNL Edema: Yes Labs: CBC, BMP 01/13/19 10:15 01/13/19 10:15 INR, PTT INR 1.69 (0.83-1.09) H 01/09/19 17:55 Problem List - Problems (1) Acute exacerbation of chronic obstructive pulmonary disease (COPD) Code(s): J44.1 - CHRONIC OBSTRUCTIVE PULMONARY DISEASE W (ACUTE) EXACERBATION (2) Anemia Code(s): D64.9 - ANEMIA, UNSPECIFIED (3) Bilateral lower extremity edema Code(s): R60.0 - LOCALIZED EDEMA (4) Moderate to severe pulmonary hypertension Code(s): I27.2 - OTHER SECONDARY PULMONARY HYPERTENSION * DO NOT USE * (5) Obstructive apnea Code(s): G47.33 - OBSTRUCTIVE SLEEP APNEA (ADULT) (PEDIATRIC) (6) Pulmonary hypertension Code(s): I27.2 - OTHER SECONDARY PULMONARY HYPERTENSION * DO NOT USE * (7) Sleep apnea Code(s): G47.30 - SLEEP APNEA, UNSPECIFIED Assessment/Plan Problem List - Problems (1) Acute on chronic diastolic CHF (congestive heart failure) Code(s): I50.33 - ACUTE ON CHRONIC DIASTOLIC (CONGESTIVE) HEART FAILURE (2) Morbid (severe) obesity due to excess calories Code(s): E66.01 - MORBID (SEVERE) OBESITY DUE TO EXCESS CALORIES Assessment/Plan Acute on Chronic Diastolic Heart Failure Volume Overload Hyponatremia Morbid Obesity Obstructive Sleep Apnea Obesity Hypoventilation Syndrome COPD Anemia h/o DVT HTN - IV lasix - monitor urine output, creatinine - keep net negative - O2 to keep SpO2 >90% - inhaled bronchodilators - empiric antibiotics - BiPAP at night and PRN during day - continue anticoagulation - monitor na,lytes - consider bariatric surgery evaluation DR COE
--- NOTE | 2019-01-13 13:41 | PN ---
Progress Note, Physician History of Present Illness: AWAKE, RESPONSIVE NO COMPLAINTS BREATHING NON-LABORED AFEBRILE - Current Medication List Current Medications: Active Medications Acetaminophen (Tylenol -) 650 mg PO Q6H PRN PRN Reason: PAIN LEVEL 1-5 Albuterol/Ipratropium (Duoneb -) 1 amp NEB RQID [facility] Last Admin: 01/13/19 11:09 Dose: 1 amp Atorvastatin Calcium (Lipitor -) 10 mg PO HS [facility] Last Admin: 01/12/19 21:12 Dose: 10 mg Dorzolamide HCl (Trusopt 2%) 1 drop OU BID [facility] Last Admin: 01/13/19 09:35 Dose: 1 drop Furosemide (Lasix Injection -) 60 mg IVPUSH BID@0600,1400 [facility] Piperacillin Sod/Tazobactam (Sod 4.5 gm/ Sodium Chloride) 100 mls @ 200 mls/hr IVPB Q8H-IV [facility]; Protocol Last Admin: 01/13/19 09:28 Dose: 200 mls/hr Insulin Aspart (Novolog Vial Sliding Scale -) 1 vial SQ [facility]; Protocol Last Admin: 01/13/19 11:43 Dose: 7 units Insulin Detemir (Levemir Vial) 10 units SQ [facility] Last Admin: 01/12/19 21:17 Dose: 10 units Methimazole (Tapazole -) 10 mg PO DAILY [facility] Last Admin: 01/13/19 09:27 Dose: 10 mg Multi-Ingredient Lotion (Eucerin (Large Jar) -) 1 applic TP BID PRN PRN Reason: DRY SKIN Nystatin (Nystatin Oral Suspension -) 500,000 units PO Q6HPO [facility] Last Admin: 01/13/19 11:41 Dose: 500,000 units Rivaroxaban (Xarelto) 20 mg PO DAILY@1800 [facility] Last Admin: 01/12/19 17:33 Dose: 20 mg Tramadol HCl (Ultram -) 50 mg PO BID PRN PRN Reason: PAIN LEVEL 7 - 10 Last Admin: 01/12/19 18:02 Dose: 50 mg - Objective Vital Signs: Vital Signs Temperature 98.3 F 01/13/19 13:34 Pulse Rate 102 H 01/13/19 13:34 Respiratory Rate 18 01/13/19 13:34 Blood Pressure 101/64 01/13/19 13:34 O2 Sat by Pulse Oximetry (%) 96 01/13/19 09:00 Constitutional: Yes: No Distress Eyes: Yes: Conjunctiva Clear Cardiovascular: Yes: Regular Rate and Rhythm, S1, S2 Respiratory: Yes: Diminished Gastrointestinal: Yes: Normal Bowel Sounds, Soft, Abdomen, Obese. No: Tenderness Labs: CBC, BMP 01/13/19 10:15 01/13/19 10:15 INR, PTT INR 1.69 (0.83-1.09) H 01/09/19 17:55 Assessment/Plan CHF COPD ? HCAP MORBID OBESITY CONTINUE EMPIRIC ZOSYN
[2019-01-13] MEDS: traMADol HCL 50 MG TABLET PO PRN (13:52)
--- NOTE | 2019-01-13 15:03 | PN ---
Progress Note (short form) - Note Progress Note: Renal follow up for hyponatremia Seen and examined at the bedside. awake and alert no overnight events denies any confusion, lethargy or weakness still has poor appetite no N/V making urine via wilhelm Vital Signs Temperature 98.3 F 01/13/19 13:34 Pulse Rate 102 H 01/13/19 13:34 Respiratory Rate 18 01/13/19 13:34 Blood Pressure 101/64 01/13/19 13:34 O2 Sat by Pulse Oximetry (%) 96 01/13/19 09:00 Intake & Output 01/10/19 01/11/19 01/12/19 01/13/19 23:59 23:59 23:59 23:59 Intake Total 550 1020 1420 370 Output Total 690 070 4897 Balance 200 70 120 370 Weight 154.221 kg 149.05 kg NAD trace LE edema CBC, BMP 01/13/19 10:15 01/13/19 10:15 Current Medications Acetaminophen (Tylenol -) 650 mg PO Q6H PRN PRN Reason: PAIN LEVEL 1-5 Albuterol/Ipratropium (Duoneb -) 1 amp NEB RQID [facility]S [facility] Last Admin: 01/13/19 11:09 Dose: 1 amp Atorvastatin Calcium (Lipitor -) 10 mg PO HS [facility] Last Admin: 01/12/19 21:12 Dose: 10 mg Dorzolamide HCl (Trusopt 2%) 1 drop OU BID [facility] 234 BEDS AT [facility] Last Admin: 01/13/19 09:35 Dose: 1 drop Furosemide (Lasix Injection -) 60 mg IVPUSH BID@0600,1400 [facility] 234 [facility]EDS AT [facility] Last Admin: 01/13/19 13:49 Dose: 60 mg Piperacillin Sod/Tazobactam (Sod 4.5 gm/ Sodium Chloride) 100 mls @ 200 mls/hr IVPB Q8H-IV [facility]; Protocol Last Admin: 01/13/19 09:28 Dose: 200 mls/hr Insulin Aspart (Novolog Vial Sliding Scale -) 1 vial SQ ACHS [facility]; Protocol Last Admin: 01/13/19 11:43 Dose: 7 units Insulin Detemir (Levemir Vial) 10 units SQ HS [facility] 234 BEDS AT [facility] Last Admin: 01/12/19 21:17 Dose: 10 units Methimazole (Tapazole -) 10 mg PO DAILY [facility]S [facility]CLUDE 234 BEDS AT [facility] Last Admin: 01/13/19 09:27 Dose: 10 mg Multi-Ingredient Lotion (Eucerin (Large Jar) -) 1 applic TP BID PRN PRN Reason: DRY SKIN Nystatin (Nystatin Oral Suspension -) 500,000 units PO Q6HPO [facility]S INCLUDE 234 BEDS AT [facility] Last Admin: 01/13/19 11:41 Dose: 500,000 units Rivaroxaban (Xarelto) 20 mg PO DAILY@1800 [facility] Last Admin: 01/12/19 17:33 Dose: 20 mg Tramadol HCl (Ultram -) 50 mg PO BID PRN PRN Reason: PAIN LEVEL 7 - 10 Last Admin: 01/13/19 13:52 Dose: 50 mg 48 year old gentleman with history of morbid obesity, COPD, BONY , diastolic heart failure, anemia, hypertension, hypothyrodism, DVT presented with back pain from the MI and found to have hyponatremia with serum Na of 123. 1. Hypervolemic hyponatremia 2. Diastolic CHF with pleural effusions 3. Acute on chronic lower back pain 4. Morbid obesity 5. COPD/BONY Serum Na is essentially unchanged. No neurological symptoms present that would warrant hypertonic saline. Pt remains net positive for his intake and output over the last 24 hours. Will increase Lasix to 60mg IV BID. Continue fluid restriction of 1L daily. If serum Na not improving with increased diuretics can consider trial of tolvaptan. continue antibiotics as per primary team supportive care trend electrolytes daily Thank you Dennis Aldana DO
--- NOTE | 2019-01-13 15:58 | PN ---
Progress Note, Physician Chief Complaint: patient seen and examined sleeping in bed - Current Medication List Current Medications: Active Medications Acetaminophen (Tylenol -) 650 mg PO Q6H PRN PRN Reason: PAIN LEVEL 1-5 Albuterol/Ipratropium (Duoneb -) 1 amp NEB RQID [facility] Last Admin: 01/13/19 11:09 Dose: 1 amp Atorvastatin Calcium (Lipitor -) 10 mg PO HS [facility] Last Admin: 01/12/19 21:12 Dose: 10 mg Dorzolamide HCl (Trusopt 2%) 1 drop OU BID [facility] Last Admin: 01/13/19 09:35 Dose: 1 drop Furosemide (Lasix Injection -) 60 mg IVPUSH BID@0600,1400 [facility] Last Admin: 01/13/19 13:49 Dose: 60 mg Piperacillin Sod/Tazobactam (Sod 4.5 gm/ Sodium Chloride) 100 mls @ 200 mls/hr IVPB Q8H-IV [facility]; Protocol Last Admin: 01/13/19 09:28 Dose: 200 mls/hr Insulin Aspart (Novolog Vial Sliding Scale -) 1 vial SQ ACHS [facility]; Protocol Last Admin: 01/13/19 11:43 Dose: 7 units Insulin Detemir (Levemir Vial) 10 units SQ [facility] Last Admin: 01/12/19 21:17 Dose: 10 units Methimazole (Tapazole -) 10 mg PO DAILY [facility] Last Admin: 01/13/19 09:27 Dose: 10 mg Multi-Ingredient Lotion (Eucerin (Large Jar) -) 1 applic TP BID PRN PRN Reason: DRY SKIN Nystatin (Nystatin Oral Suspension -) 500,000 units PO Q6HPO [facility] Last Admin: 01/13/19 11:41 Dose: 500,000 units Rivaroxaban (Xarelto) 20 mg PO DAILY@1800 [facility] Last Admin: 01/12/19 17:33 Dose: 20 mg Tramadol HCl (Ultram -) 50 mg PO BID PRN PRN Reason: PAIN LEVEL 7 - 10 Last Admin: 01/13/19 13:52 Dose: 50 mg - Objective Vital Signs: Vital Signs Temperature 98.3 F 01/13/19 13:34 Pulse Rate 102 H 01/13/19 13:34 Respiratory Rate 18 01/13/19 13:34 Blood Pressure 101/64 01/13/19 13:34 O2 Sat by Pulse Oximetry (%) 96 01/13/19 09:00 Constitutional: Yes: Calm HENT: Yes: Thrush ( improving) Neck: Yes: Thyromegaly Cardiovascular: Yes: Regular Rate and Rhythm, S1, S2 Respiratory: Yes: Diminished, On Nasal O2 Gastrointestinal: Yes: Normal Bowel Sounds, Soft Edema: Yes Labs: CBC, BMP 01/13/19 10:15 01/13/19 10:15 INR, PTT INR 1.69 (0.83-1.09) H 01/09/19 17:55 Problem List - Problems (1) Hyperglycemia Assessment/Plan: hgAC1 noted 8.8 started on levemir bid endocrine note appreciated Code(s): R73.9 - HYPERGLYCEMIA, UNSPECIFIED (2) Acute exacerbation of chronic obstructive pulmonary disease (COPD) Assessment/Plan: stop oral prenisone medrol stopped on iv abx check vano trough Code(s): J44.1 - CHRONIC OBSTRUCTIVE PULMONARY DISEASE W (ACUTE) EXACERBATION (3) Hyponatremia Assessment/Plan: seen by renal fluid restriction will monitor lasix 60mg iv bid Code(s): E87.1 - HYPO-OSMOLALITY AND HYPONATREMIA (4) DVT of upper extremity (deep vein thrombosis) Assessment/Plan: on xarelto remove SCD Code(s): I82.629 - ACUTE EMBOLISM AND THROMBOSIS OF DEEP VN UNSP UP EXTREM (5) Thrush, oral Assessment/Plan: nystatin swish spit Code(s): B37.0 - CANDIDAL STOMATITIS (6) Hyperthyroidism Assessment/Plan: tapazole Code(s): E05.90 - THYROTOXICOSIS, UNSP WITHOUT THYROTOXIC CRISIS OR STORM (7) Pneumonia Assessment/Plan: vanco and zosyn 'check vanco trough Code(s): J18.9 - PNEUMONIA, UNSPECIFIED ORGANISM (8) Hearing loss Assessment/Plan: ent consult appreciate hearing aides audiology testing on discharge Code(s): H91.90 - UNSPECIFIED HEARING LOSS, UNSPECIFIED EAR (9) Thyromegaly Assessment/Plan: follow up at [facility] with the surgeon( head nad neck surgeon) Code(s): E01.0 - IODINE-DEFICIENCY RELATED DIFFUSE (ENDEMIC) GOITER (10) HLD (hyperlipidemia) Assessment/Plan: statin Code(s): E78.5 - HYPERLIPIDEMIA, UNSPECIFIED
[2019-01-13] MEDS: RIVAROXABAN 20 MG TABLET PO SCH (17:14)
[2019-01-13] MEDS: INSULIN (LEVEMIR) 100 UNITS/ML UNITS SQ SCH (22:36)
[2019-01-13] MEDS: ATORVASTATIN CA 10 MG TABLET (FP) PO SCH (22:36)
--- NOTE | 2019-01-13 22:49 | PN ---
Progress Note, Physician Chief Complaint: awake alert yet weak in bed - Current Medication List Current Medications: Active Medications Acetaminophen (Tylenol -) 650 mg PO Q6H PRN PRN Reason: PAIN LEVEL 1-5 Albuterol/Ipratropium (Duoneb -) 1 amp NEB RQID [facility] Last Admin: 01/13/19 20:10 Dose: 1 amp Atorvastatin Calcium (Lipitor -) 10 mg PO HS [facility] Last Admin: 01/13/19 22:36 Dose: 10 mg Dorzolamide HCl (Trusopt 2%) 1 drop OU BID [facility] Last Admin: 01/13/19 22:39 Dose: 1 drop Furosemide (Lasix Injection -) 60 mg IVPUSH BID@0600,1400 [facility] Last Admin: 01/13/19 13:49 Dose: 60 mg Piperacillin Sod/Tazobactam (Sod 4.5 gm/ Sodium Chloride) 100 mls @ 200 mls/hr IVPB Q8H-IV [facility]; Protocol Last Admin: 01/13/19 20:20 Dose: 200 mls/hr Insulin Aspart (Novolog Vial Sliding Scale -) 1 vial SQ ACHS [facility]; Protocol Last Admin: 01/13/19 16:52 Dose: 7 units Insulin Detemir (Levemir Vial) 10 units SQ HS [facility] Last Admin: 01/13/19 22:36 Dose: 10 units Insulin Detemir (Levemir Vial) 10 units SQ AM [facility] Methimazole (Tapazole -) 10 mg PO DAILY [facility] Last Admin: 01/13/19 09:27 Dose: 10 mg Multi-Ingredient Lotion (Eucerin (Large Jar) -) 1 applic TP BID PRN PRN Reason: DRY SKIN Last Admin: 01/13/19 15:30 Dose: 1 applic Nystatin (Nystatin Oral Suspension -) 500,000 units PO Q6HPO [facility] Last Admin: 01/13/19 17:14 Dose: 500,000 units Rivaroxaban (Xarelto) 20 mg PO DAILY@1800 [facility] Last Admin: 01/13/19 17:14 Dose: 20 mg Tramadol HCl (Ultram -) 50 mg PO BID PRN PRN Reason: PAIN LEVEL 7 - 10 Last Admin: 01/13/19 13:52 Dose: 50 mg - Objective Vital Signs: Vital Signs Temperature 98.2 F 01/13/19 18:00 Pulse Rate 98 H 01/13/19 18:00 Respiratory Rate 18 01/13/19 18:00 Blood Pressure 101/56 L 01/13/19 18:00 O2 Sat by Pulse Oximetry (%) 97 01/13/19 20:50 Constitutional: Yes: Calm Eyes: Yes: EOM Intact HENT: Yes: Normocephalic, Hoarseness Neck: Yes: Trachea Midline, Lymphadenopathy, Thyromegaly Cardiovascular: Yes: Tachycardia, JVD, Murmur Respiratory: Yes: On BiPap, Rhonchi, SOB, Tachypnea Gastrointestinal: Yes: Normal Bowel Sounds, Abdomen, Obese ...Rectal Exam: Yes: Deferred Genitourinary: Yes: WNL Musculoskeletal: Yes: Back Pain, Joint Swelling, Muscle Pain, Muscle Weakness Extremities: Yes: Cold, Delayed Capillary Refill Edema: LLE: 3+, RLE: 3+ Integumentary: Yes: Onychomycosis, Venous Stasis Changes Neurological: Yes: Alert, Oriented Labs: CBC, BMP 01/13/19 10:15 01/13/19 10:15 INR, PTT INR 1.69 (0.83-1.09) H 01/09/19 17:55 Problem List - Problems (1) Acute exacerbation of chronic obstructive pulmonary disease (COPD) Code(s): J44.1 - CHRONIC OBSTRUCTIVE PULMONARY DISEASE W (ACUTE) EXACERBATION (2) DVT (deep venous thrombosis) Code(s): I82.409 - ACUTE EMBOLISM AND THOMBOS UNSP DEEP VN UNSP LOWER EXTREMITY (3) Lower back pain Code(s): M54.5 - LOW BACK PAIN Qualifiers: Chronicity: acute Back pain laterality: midline Sciatica presence: without sciatica Qualified Code(s): M54.5 - Low back pain (4) Morbid obesity Code(s): E66.01 - MORBID (SEVERE) OBESITY DUE TO EXCESS CALORIES Assessment/Plan Current Active Problems Acute exacerbation of chronic obstructive pulmonary disease (COPD) (Acute) Anemia (Acute) DVT (deep venous thrombosis) (Acute) DVT of upper extremity (deep vein thrombosis) (Acute) Diabetes (Acute) HLD (hyperlipidemia) (Acute) Hearing loss (Acute) Hyperglycemia (Acute) Hyperthyroidism (Acute) Hyponatremia (Acute) Lower back pain (Acute) Morbid obesity (Acute) Poor perfusion of leg (Acute) Rhinitis (Acute) Right leg pain (Acute) Tachycardia (Acute) Thrush, oral (Acute) Thyromegaly (Acute) Thyromegaly (Acute) Upper leg DVT (deep venous thromboembolism), chronic (Acute) Abnormal Lab Results 01/13/19 01/13/19 10:15 10:15 WBC 13.9 H MPV 7.2 L Sodium 123 L Chloride 80 L Random Glucose 223 H ALT 66 H Total Protein 5.5 L Albumin 2.8 L Free T4 0.31 L Laboratory Tests 01/10/19 01/13/19 01/13/19 08:21 10:15 11:42 Sodium 123 L Potassium 3.9 Chloride 80 L Carbon Dioxide 32 Anion Gap 12 BUN 14.8 Creatinine 1.1 Est GFR (CKD-EPI)AfAm 91.52 POC Glucometer 211 Random Glucose 223 H TSH 1.33 D Cortisol AM Sample 10.0 plan: bgm qid novolog scale Current Medications Generic Name Dose Route Start Last Admin Trade Name Freq PRN Reason Stop Dose Admin Acetaminophen 650 mg 01/10/19 00:23 Tylenol - PO Q6H PRN PAIN LEVEL 1-5 Albuterol/Ipratropium 1 amp 01/10/19 00:30 01/13/19 20:10 Duoneb - NEB 1 amp RQID [facility] Administration Atorvastatin Calcium 10 mg 01/10/19 22:00 01/13/19 22:36 Lipitor - PO 10 mg HS [facility] Administration Dorzolamide HCl 1 drop 01/10/19 10:00 01/13/19 22:39 Trusopt 2% OU 1 drop BID [facility] Administration Furosemide 60 mg 01/13/19 14:00 01/13/19 13:49 Lasix Injection - IVPUSH 60 mg BID@0600,1400 [facility] Administration Piperacillin Sod/Tazobactam 100 mls @ 200 mls/hr 01/12/19 18:00 01/13/19 20: 20 Sod 4.5 gm/ Sodium Chloride IVPB 200 mls/hr Q8H-IV [facility] Administration Protocol Insulin Aspart 1 vial 01/12/19 07:00 01/13/19 16:52 Novolog Vial Sliding Scale - SQ 7 units ACHS [facility] Administration Protocol Insulin Detemir 10 units 01/12/19 22:00 01/13/19 22:36 Levemir Vial SQ 10 units HS [facility] Administration Insulin Detemir 10 units 01/14/19 07:00 Levemir Vial SQ AM [facility] Methimazole 10 mg 01/10/19 10:00 01/13/19 09:27 Tapazole - PO 10 mg DAILY [facility] Administration Multi-Ingredient Lotion 1 applic 01/12/19 12:28 01/13/19 15:30 Eucerin (Large Jar) - TP 1 applic BID PRN Administration DRY SKIN Nystatin 500,000 units 01/12/19 18:00 01/13/19 17:14 Nystatin Oral Suspension - PO 500,000 units Q6HPO [facility] Administration Rivaroxaban 20 mg 01/10/19 06:40 01/13/19 17:14 Xarelto PO 20 mg DAILY@1800 [facility] Administration Tramadol HCl 50 mg 01/10/19 00:23 01/13/19 13:52 Ultram - PO 50 mg BID PRN Administration PAIN LEVEL 7 - 10 dc methimazole repeat tfts 3-4 days levemir 20units bid
--- NOTE | 2019-01-13 23:21 | PN ---
Progress Note, Physician Chief Complaint: Pt A&Ox3; no chest pain; dyspnea on mild exertion. History of Present Illness: 48-year-old black male coming from a retirement with a past medical history of he morbid obesity, COPD, CHF, hypertension, hyperlipidemia, ASA, hypothyroidism and sleep apnea, s/p DVT (-->rivaroxaban) who is is maintained on 3 L oxygen nasal cannula Medical history significant for acute on chronic respiratory failure with hypoxia and hypercapnia, previous intubations, pneumonia, DVT, glaucoma, hyperlipidemia, hypertension - Current Medication List Current Medications: Active Medications Acetaminophen (Tylenol -) 650 mg PO Q6H PRN PRN Reason: PAIN LEVEL 1-5 Albuterol/Ipratropium (Duoneb -) 1 amp NEB RQID [facility] Last Admin: 01/13/19 20:10 Dose: 1 amp Atorvastatin Calcium (Lipitor -) 10 mg PO HS [facility] Last Admin: 01/13/19 22:36 Dose: 10 mg Dorzolamide HCl (Trusopt 2%) 1 drop OU BID [facility] Last Admin: 01/13/19 22:39 Dose: 1 drop Furosemide (Lasix Injection -) 60 mg IVPUSH BID@0600,1400 [facility] Last Admin: 01/13/19 13:49 Dose: 60 mg Piperacillin Sod/Tazobactam (Sod 4.5 gm/ Sodium Chloride) 100 mls @ 200 mls/hr IVPB Q8H-IV [facility]; Protocol Last Admin: 01/13/19 20:20 Dose: 200 mls/hr Insulin Aspart (Novolog Vial Sliding Scale -) 1 vial SQ ACHS [facility]; Protocol Last Admin: 01/13/19 16:52 Dose: 7 units Insulin Detemir (Levemir Vial) 20 units SQ HS [facility] Insulin Detemir (Levemir Vial) 20 units SQ AM [facility] Multi-Ingredient Lotion (Eucerin (Large Jar) -) 1 applic TP BID PRN PRN Reason: DRY SKIN Last Admin: 01/13/19 15:30 Dose: 1 applic Nystatin (Nystatin Oral Suspension -) 500,000 units PO Q6HPO [facility] Last Admin: 01/13/19 17:14 Dose: 500,000 units Rivaroxaban (Xarelto) 20 mg PO DAILY@1800 [facility] Last Admin: 01/13/19 17:14 Dose: 20 mg Tramadol HCl (Ultram -) 50 mg PO BID PRN PRN Reason: PAIN LEVEL 7 - 10 Last Admin: 01/13/19 13:52 Dose: 50 mg - Objective Vital Signs: Vital Signs Temperature 98.2 F 01/13/19 18:00 Pulse Rate 98 H 01/13/19 18:00 Respiratory Rate 18 01/13/19 18:00 Blood Pressure 101/56 L 01/13/19 18:00 O2 Sat by Pulse Oximetry (%) 97 01/13/19 20:50 Constitutional: Yes: Calm, Obese Eyes: Yes: WNL HENT: Yes: Nasal Congestion Neck: Yes: Decreased ROM, Other (markedly enlarged cheeks and jowls) Cardiovascular: Yes: S1, S2, S4 Respiratory: Yes: Diminished (markedly), On Nasal O2 Gastrointestinal: Yes: Abdomen, Obese ...Rectal Exam: Yes: Deferred Genitourinary: Yes: Anuria Breast(s): Yes: Gynecomastia Musculoskeletal: Yes: Back Pain, Joint Stiffness, Joint Swelling, Muscle Pain, Muscle Weakness Extremities: Yes: Cool Edema: Yes Edema: LLE: 2+, RLE: 2+ Integumentary: Yes: Venous Stasis Changes Neurological: Yes: Alert, Oriented, Unsteady Gait, Weakness Psychiatric: Yes: Alert, Oriented, Other (addictions) Labs: CBC, BMP 01/13/19 10:15 01/13/19 10:15 INR, PTT INR 1.69 (0.83-1.09) H 01/09/19 17:55 Abnormal Lab Results 01/13/19 01/13/19 10:15 10:15 WBC 13.9 H MPV 7.2 L Sodium 123 L Chloride 80 L Random Glucose 223 H ALT 66 H Total Protein 5.5 L Albumin 2.8 L Free T4 0.31 L Problem List - Problems (1) Acute exacerbation of chronic obstructive pulmonary disease (COPD) Assessment/Plan: bronchodilators, O2 per behavioral health care coordinator. Code(s): J44.1 - CHRONIC OBSTRUCTIVE PULMONARY DISEASE W (ACUTE) EXACERBATION (2) Hyponatremia Assessment/Plan: Lisinopril: start for HTN, DM (renal protection. Decrease furosemide. F/u electrolytes. 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 Code(s): E87.1 - HYPO-OSMOLALITY AND HYPONATREMIA (3) Lower back pain Code(s): M54.5 - LOW BACK PAIN Qualifiers: Chronicity: acute Back pain laterality: midline Sciatica presence: without sciatica Qualified Code(s): M54.5 - Low back pain (4) Morbid obesity Assessment/Plan: Pt says he has been scheduled for gastric bypass surgery in the past, but, for various reasons, it has not been carried out. Prognosis is poor with dietary modification and dramatic weight loss. Code(s): E66.01 - MORBID (SEVERE) OBESITY DUE TO EXCESS CALORIES (5) Acute on chronic diastolic CHF (congestive heart failure) Assessment/Plan: ECHO: normal LVEF; limited study otherwise (repeat when pt able to help with obtaining windows). Start lisinopril for HTN, CHF, DM. On furosemide (dose lowered; f/u CXR). F/u BUN/Cr, electrolytes, daily weight, Is and Os. Code(s): I50.33 - ACUTE ON CHRONIC DIASTOLIC (CONGESTIVE) HEART FAILURE (6) Acute on chronic respiratory failure with hypoxia and hypercapnia Code(s): J96.21 - ACUTE AND CHRONIC RESPIRATORY FAILURE WITH HYPOXIA; J96.22 - ACUTE AND CHRONIC RESPIRATORY FAILURE WITH HYPERCAPNIA (7) Bilateral lower extremity edema Code(s): R60.0 - LOCALIZED EDEMA (8) Depression Code(s): F32.9 - MAJOR DEPRESSIVE DISORDER, SINGLE EPISODE, UNSPECIFIED (9) [place] cardiac risk >20% in next 10 years Assessment/Plan: Stress MIBI 12/2016: no ischemia. Keep lipids aggressively controlled with diet, statin. The imperative need to lose weight was discussed again. Code(s): Z91.89 - OTH PERSONAL RISK FACTORS, NOT ELSEWHERE CLASSIFIED (10) HTN (hypertension) Assessment/Plan: Start lisinopril. On furosemide (f/u hyponatremia). F/u BNU/Cr, electrolytes. Code(s): I10 - ESSENTIAL (PRIMARY) HYPERTENSION (11) Hx of deep venous thrombosis Code(s): Z86.718 - PERSONAL HISTORY OF OTHER VENOUS THROMBOSIS AND EMBOLISM (12) Hyperlipidemia Code(s): E78.5 - HYPERLIPIDEMIA, UNSPECIFIED (13) Moderate to severe pulmonary hypertension Code(s): I27.2 - OTHER SECONDARY PULMONARY HYPERTENSION * DO NOT USE * (14) Obstructive apnea Assessment/Plan: CPAP per behavioral health care coordinator. Code(s): G47.33 - OBSTRUCTIVE SLEEP APNEA (ADULT) (PEDIATRIC) (15) Diabetes Assessment/Plan: Added ACEI. f/u with chip tester. Code(s): E11.9 - TYPE 2 DIABETES MELLITUS WITHOUT COMPLICATIONS (16) Hyperthyroidism Assessment/Plan: f/u TFTs Code(s): E05.90 - THYROTOXICOSIS, UNSP WITHOUT THYROTOXIC CRISIS OR STORM
[2019-01-14] MEDS: INSULIN SLIDING SCALE (NOVOLOG) 1 VIAL SQ SCH ×5 (00:28→22:44)
[2019-01-14] MEDS: NYSTATIN 500,000 UNITS/5 ML SUSPENSION PO SCH ×5 (00:33→20:21)
[2019-01-14] MEDS: PIPERACILLIN/TAZOB 4.5 GM 4.5 GM in SODIUM CHLORIDE 100 ML IVPB SCH ×3 (01:44→19:52)
[2019-01-14] MEDS: FUROSEMIDE 40 MG/4 ML INJECTABLE VIAL IVPUSH SCH (06:30)
[2019-01-14] MEDS ORDERED: INSULIN (LEVEMIR) 100 UNITS/ML UNITS SQ SCH ×3 (07:00→22:00)
[2019-01-14] MEDS: ALBUTEROL SO4 2.5/IPRATROPIUM 0.5 INH SOL 3 ML VIAL.NEB. NEB SCH ×4 (07:55→20:19)
[2019-01-14 09:53] LABS: CALCIUM 9.6 mg/dL (8.5-10.1); CREATININE 1.5 mg/dL (0.55-1.3); POTASSIUM 3.3 mmol/L (3.5-5.1)
[2019-01-14] MEDS ORDERED: LISINOPRIL 5 MG TABLET (FP) PO SCH (10:00)
[2019-01-14] MEDS ORDERED: PIPERACILLIN/TAZOBACTAM 4.5 GM VIAL IVPB ONE ×3 (10:58→18:09)
[2019-01-14] MEDS ORDERED: SODIUM CHLORIDE 100 ML IVPB ONE ×3 (10:58→18:09)
[2019-01-14] MEDS ORDERED: POTASSIUM CHLORIDE TABS 20 MEQ TABLET.ER (FP) PO ONE ×2 (11:07→14:02)
[2019-01-14] MEDS: DORZOLAMIDE 2% HCL OPHTHALMIC SOLUTION 10 ML BOTTLE OU SCH ×2 (11:50→22:44)
--- NOTE | 2019-01-14 11:56 | RAPID ---
Physical Examination Vital Signs: Vital Signs Temperature 97.4 F L 01/14/19 06:00 Pulse Rate 89 01/14/19 06:00 Respiratory Rate 18 01/14/19 06:00 Blood Pressure 129/70 01/14/19 06:00 O2 Sat by Pulse Oximetry (%) 97 01/13/19 20:50 Findings/Remarks: 48 year old male with PMH of morbid obesity, BONY, COPD, diastolic HF, anemia, h/ o UGI bleeding, HTN, hyperthyroidism, DVTs (UEs, on Xarelto) admitted for COPD exacerbation vs PNA. Was recently downgraded from the ICU due to acute on chronic respiratory failure. Rapid response(~11:29) called due to lethargy, BP ~ 59/42. PHYSICAL EXAM: General: lethargic, responding to sternal rub then spontaneous eye opening with ability to follow commands; morbid\obesity Head: normocephalic Heart: nontachy, normal S1/S2; no murmurs appreciated Lungs: clear to auscultation b/l, on BiPaP Abd: obese abd, soft, ND, nonTTP [id number] Extr: cool hands and feet bl, with 1+ radials bl, 1+ DP bl Neuro: spontaneous eye movement, 5/5 director of operations home health strength on command Assessment: 48 year old male with PMH of morbid obesity, BONY, COPD, diastolic HF, anemia, h/ o UGI bleeding, HTN, hyperthyroidism, DVTs (UEs, on Xarelto) admitted for COPD exacerbation vs PNA. Transient hypotension which resolved with trendelenburg, not septic #hypotension -- transient, 59/42 to BP 136/79 and HR 96 -rec gentle mIVF #lethargy -rec ABG -recommendations communicated to EDITH Herzog Labs: CBC, BMP 01/13/19 10:15 01/14/19 08:56
[2019-01-14 11:57] LABS: ARTERIAL BLD GAS O2 SATURATION 98.7 % (95-98); ARTERIAL BLOOD GAS BASE EXCESS 5.3 meq/l (-2-2); ARTERIAL BLOOD GAS pH 7.47 (7.35-7.45)
[2019-01-14] MEDS ORDERED: SODIUM CHLORIDE 1,000 ML IV SCH ×2 (12:00→14:02)
[2019-01-14 12:04] LABS: ALLENS TEST POSITIVE
[2019-01-14 12:06] LABS: ARTERIAL BLOOD GAS PO2 130 mmHg (80-100)
--- NOTE | 2019-01-14 12:09 | PN ---
Progress Note, Physician Chief Complaint: Pneumonia Morbid Obesity COPD History of Present Illness: Previous notes and events reviewed NAD on examination patient noted with BP 53/37 with periods of lethargy, HAY FARMER called at 11:28am, patient placed in Trendelenburgh position and increase noted with BP 155/91, after patient placed back in sitting position noted with BP drop to 88/53, ICU consult placed and spoke with 3rd year resident - Current Medication List Current Medications: Active Medications Acetaminophen (Tylenol -) 650 mg PO Q6H PRN PRN Reason: PAIN LEVEL 1-5 Albuterol/Ipratropium (Duoneb -) 1 amp NEB RQID [facility] Last Admin: 01/14/19 07:55 Dose: 1 amp Atorvastatin Calcium (Lipitor -) 10 mg PO HS [facility] Last Admin: 01/13/19 22:36 Dose: 10 mg Dorzolamide HCl (Trusopt 2%) 1 drop OU BID [facility] Last Admin: 01/14/19 11:50 Dose: Not Given Furosemide (Lasix Injection -) 40 mg IVPB BIDLASIX [facility] Piperacillin Sod/Tazobactam (Sod 4.5 gm/ Sodium Chloride) 100 mls @ 200 mls/hr IVPB Q8H-IV [facility]; Protocol Last Admin: 01/14/19 11:49 Dose: 200 mls/hr Sodium Chloride (Normal Saline -) 1,000 mls @ 42 mls/hr IV ASDIR [facility] Insulin Aspart (Novolog Vial Sliding Scale -) 1 vial SQ ACHS [facility]; Protocol Last Admin: 01/14/19 06:41 Dose: Not Given Insulin Detemir (Levemir Vial) 20 units SQ HS [facility] Insulin Detemir (Levemir Vial) 20 units SQ AM [facility] Last Admin: 01/14/19 06:33 Dose: 20 units Lisinopril (Prinivil) 5 mg PO DAILY [facility] Last Admin: 01/14/19 11:49 Dose: Not Given Multi-Ingredient Lotion (Eucerin (Large Jar) -) 1 applic TP BID PRN PRN Reason: DRY SKIN Last Admin: 01/13/19 15:30 Dose: 1 applic Nystatin (Nystatin Oral Suspension -) 500,000 units PO Q6HPO [facility] Last Admin: 01/14/19 06:32 Dose: 500,000 units Rivaroxaban (Xarelto) 20 mg PO DAILY@1800 [facility] Last Admin: 01/13/19 17:14 Dose: 20 mg - Objective Vital Signs: Vital Signs Temperature 97.4 F L 01/14/19 06:00 Pulse Rate 89 01/14/19 06:00 Respiratory Rate 18 01/14/19 06:00 Blood Pressure 129/70 01/14/19 06:00 O2 Sat by Pulse Oximetry (%) 97 01/13/19 20:50 Constitutional: Yes: No Distress, Calm, Obese Eyes: Yes: Conjunctiva Clear HENT: Yes: Atraumatic Cardiovascular: Yes: Bradycardia Respiratory: Yes: Diminished, On BiPap Gastrointestinal: Yes: Normal Bowel Sounds, Soft, Abdomen, Obese Genitourinary: Yes: [place] Present Musculoskeletal: Yes: Muscle Weakness Extremities: Yes: WNL Edema: No Neurological: Yes: Lethargy (answers questions when asked and responds to commands) Labs: CBC, BMP 01/13/19 10:15 01/14/19 08:56 INR, PTT INR 1.69 (0.83-1.09) H 01/09/19 17:55 Microbiology 01/09/19 23:02 Urine - Urine Clean Catch Urine Culture - Final Proteus Mirabilis 01/10/19 17:17 Urine For Antigen Detection Legionella Antigen - Final 01/10/19 17:17 Urine For Antigen Detection Streptococcus pneumoniae Antigen (M - Final Problem List - Problems (1) Acute exacerbation of chronic obstructive pulmonary disease (COPD) Assessment/Plan: -Pulm on board -Bipap -bronchodilators -keep SpO2 >90% Code(s): J44.1 - CHRONIC OBSTRUCTIVE PULMONARY DISEASE W (ACUTE) EXACERBATION (2) DVT of upper extremity (deep vein thrombosis) Assessment/Plan: -Xarelto Code(s): I82.629 - ACUTE EMBOLISM AND THROMBOSIS OF DEEP VN UNSP UP EXTREM (3) Diabetes Assessment/Plan: -BGM ACHS -ISS -Levemir -Endo on board -HgA1c 8.8% Code(s): E11.9 - TYPE 2 DIABETES MELLITUS WITHOUT COMPLICATIONS (4) HLD (hyperlipidemia) Assessment/Plan: -Atorvastatin Code(s): E78.5 - HYPERLIPIDEMIA, UNSPECIFIED (5) Hyperthyroidism Assessment/Plan: -Tapazole Code(s): E05.90 - THYROTOXICOSIS, UNSP WITHOUT THYROTOXIC CRISIS OR STORM (6) Hyponatremia Assessment/Plan: -Na 127 -Renal on board -monior Na level Code(s): E87.1 - HYPO-OSMOLALITY AND HYPONATREMIA (7) Morbid obesity Assessment/Plan: -RD consult Code(s): E66.01 - MORBID (SEVERE) OBESITY DUE TO EXCESS CALORIES (8) Thrush, oral Code(s): B37.0 - CANDIDAL STOMATITIS (9) Thyromegaly Assessment/Plan: -Nystatin Code(s): E01.0 - IODINE-DEFICIENCY RELATED DIFFUSE (ENDEMIC) GOITER (10) HTN (hypertension) Assessment/Plan: -currently hypotensive~ICU consult -hold Lisinopril if SBP <100 and/or DBP <70 -low Na diet -monitor BP q2h Code(s): I10 - ESSENTIAL (PRIMARY) HYPERTENSION (11) Pneumonia Assessment/Plan: -Pulm and ID on board -Zosyn -Leukocytosis~WBC 13.9 -LA ordered -afebrile -CXR shows bibasilar consolidation,/atelectasis and possibly pleural fluid -Urine Legionella neg -Sputum culture pending Code(s): J18.9 - PNEUMONIA, UNSPECIFIED ORGANISM Assessment/Plan see problem list dvt ppx
[2019-01-14] MEDS ORDERED: SODIUM CHLORIDE 500 ML IV STA ×2 (12:34→15:43)
[2019-01-14] MEDS ORDERED: FUROSEMIDE 100 MG/10 ML INJECTABLE VIAL IVPB SCH (14:00)
[2019-01-14] MEDS ORDERED: MINERAL OIL/PETROLAT/WATER TOPICAL CREAM 454 GM JAR TP PRN (14:02)
[2019-01-14] MEDS ORDERED: ACETAMINOPHEN 325 MG TABLET (FP) PO PRN (14:02)
--- NOTE | 2019-01-14 14:31 | CONSULT ---
Consultation: REQUESTING PROVIDER: Paulo Chandler ROLL HANDLER CONSULT REQUEST: We have been asked to medically evaluate this patient for labile BP, lethargy. HISTORY OF PRESENT ILLNESS: 48 y/o M with PMH of morbid obesity, OHS, BONY, COPD, diastolic CHF, anemia, h/o UGI bleeding, HTN, hyperthyroidism, DVTs (UEs, on Xarelto), who initially was sent from [facility] due to acute on chronic chest pain, back pain, and RLE pain on . DVT UE/LE was r/o, while arterial duplex revealed no occlusion. Trops (-), pt was given lasix 40mg IVP x 1. He was subsequently worked up for R/o HCAP PNA , UTI, COPD exacerbation, hypervolemic hyponatremia, diastolic CHF with pleural effusions. He is currently on zosyn and was cont'd on lasix 40mg IVP BID, and fluid restricted to 1L daily. Rapid response called on floor as pt was found to be hypotensive to 60/40 mmHg with increased lethargy. Was only initially improved by trendelenburg positioning. ICU consulted for labile BP, hypotension and lethargy. 500 cc NS bolus ordered. REVIEW OF SYSTEMS: +lethargy +hypotension PHYSICAL EXAMINATION Vital Signs - 24 hr 01/14/19 01/14/19 01/14/19 02:00 06:00 12:00 Temperature 97.6 F 97.4 F L 97.7 F Pulse Rate 55 L 89 48 L Respiratory 18 18 18 Rate Blood Pressure 113/59 L 129/70 53/37 L O2 Sat by Pulse Oximetry (%) 01/14/19 01/14/19 12:16 12:56 Temperature Pulse Rate Respiratory Rate Blood Pressure 155/91 80/53 L O2 Sat by Pulse Oximetry (%) GENERAL: on BiPAP. in NAD HEAD: Normal with no signs of trauma. +congestion EYES: Pupils equal, round and reactive to light, extraocular movements intact, sclera anicteric, conjunctiva clear. EARS, NOSE, THROAT: Ears normal, nares patent, oropharynx clear without exudates. Moist mucous membranes. NECK: +large circumference LUNGS: +rhonchi HEART: +tachycardic rate and rhythm, normal S1 and S2 without murmur, rub or gallop. ABDOMEN: Soft, obese, nontender, not distended, normoactive bowel sounds UPPER EXTREMITIES: ulcerations, skin breakdown. LOWER EXTREMITIES: ulcerations, skin breakdown, w/ cold RLE NEUROLOGICAL: lethargic however able to move UE, LE PSYCHIATRIC: Cooperative. Laboratory Results 01/13/19 01/14/19 01/14/19 10:15 08:56 11:40 WBC 13.9 H Hgb 14.2 Hct 41.1 Plt Count 246 ABG pH 7.47 H ABG pCO2 at Pt Temp 40.0 ABG pO2 at Pt Temp 130 H ABG HCO3 28.9 H ABG O2 Sat (Measured) 98.7 H Sodium 127 L Potassium 3.3 L Chloride 78 L Carbon Dioxide 34 H BUN 17.0 Creatinine 1.5 H Random Glucose 182 H Triglycerides 219 H Cholesterol 245 H Total LDL Cholesterol 160 H CXR: atelectatic changes, fluid, poss infiltrate L base EKG: +sinus tach 110's, qtc 429ms ASSESSMENT/PLAN: 48 y/o M with PMH of morbid obesity, OHS, BONY, COPD, diastolic CHF, anemia, h/o UGI bleeding, HTN, hyperthyroidism, DVTs (UEs, on Xarelto), who initially was sent from [facility] due to acute on chronic chest pain, back pain, and RLE pain on . Rapid response called on floor as pt was found to be hypotensive to 60/40 mmHg with increased lethargy. Was placed in trendelenburg with only initial improvement in BP. ICU consulted for labile BP, hypotension and lethargy. 500 cc NS bolus ordered. #Neuro Lethargy -likely 2/2 hypotension -c/t monitor -at baseline mentation per #Cardio Hypotension possible 2/2 increased diuresis -pt had been diuresed with lasix, was to start on lasix 40mg IVP BID, had been fluid restricted -as with bump in creatinine (1.1>1.5), may be 2/2 lasix. -will give IVF boluses. has received 500 NS thus far with adequate response -hold lisinopril -f/u i/o -cardio, nephro on board Acute on chronic diastolic CHF -holding lasix for now as hypotensive -last ECHO 01/11: nondiagnostic, limited in quality. nl EF #ID UTI 2/2 proteus -c/w zosyn (sensitive) #Pulm OHS, COPD -c/w duonebs -BiPAP PRN day, qHS -last ABG with pCO2 WNL, not retaining #Renal Hypovolemic hyponatremia -initially was 2/2 hypervolemia but no longer overloaded and dry MM -c/w IVF boluses as needed -c/t monitor. asymptomatic MARVA likely pre-renal -with bump in creatinine likely 2/2 lasix -hold lasix -c/w IVF boluses as need Hypokalemia -repleted w/ Kdur 40meq #Heme hx DVT's -c/w xarelto #F/E/N IV NS 500 cc currently, dry. continue to follow lytes NPO while on bipap #PPX on xarelto #Dispo admitted to ICU. Dispo: We will continue to follow the patient. Thank you for this consultative opportunity. Visit type - Emergency Visit Emergency Visit: No - New Patient This patient is new to me today: Yes Date on this admission: 01/14/19 - Critical Care Critical Care patient: Yes Total Critical Care Time (in minutes): 45 Critical Care Statement: The care of this patient involved high complexity decision making to prevent further life threatening deterioration of the patient 's condition and/or to evaluate & treat vital organ system(s) failure or risk of failure.
--- NOTE | 2019-01-14 15:03 | PN ---
Teaching Attending Note Name of Resident: America Bravo ATTENDING PHYSICIAN STATEMENT I saw and evaluated the patient. I reviewed the resident's note and discussed the case with the resident. I agree with the resident's findings and plan as documented. SUBJECTIVE: Pt seen and examined in the ICU. Transferred down for hypotension. No fevers recorded. Placed on BiPAP. OBJECTIVE: Vital Signs Period Temp Pulse Resp BP Sys/[place]all Pulse Ox Last 24 Hr 97.4 F-98.4 F 48-98 18-18 53-155/37-91 97 Intake & Output 01/11/19 01/12/19 01/13/19 01/14/19 23:59 23:59 23:59 23:59 Intake Total 1020 1420 1060 0 Output Total 950 1300 1600 100 Balance 70 120 -540 -100 Weight 154.221 kg 149.05 kg 152.067 kg Gen: somnolent on BiPAP Heart: RRR Lung: distant breath sounds Abd: soft, obese Ext: no edema CBC, BMP 01/13/19 10:15 01/14/19 08:56 Active Medications Acetaminophen (Tylenol -) 650 mg PO Q6H PRN PRN Reason: PAIN LEVEL 1-5 Albuterol/Ipratropium (Duoneb -) 1 amp NEB RQID [facility] Atorvastatin Calcium (Lipitor -) 10 mg PO HS [facility] Chlorhexidine Gluconate (Hibiclens For Decolonization -) 1 applic TP HS [facility] Dorzolamide HCl (Trusopt 2%) 1 drop OU BID [facility] Furosemide (Lasix Injection -) 40 mg IVPB BIDLASIX [facility] Piperacillin Sod/Tazobactam (Sod 4.5 gm/ Sodium Chloride) 100 mls @ 200 mls/hr IVPB Q8H-IV [facility]; Protocol Sodium Chloride (Normal Saline -) 1,000 mls @ 42 mls/hr IV ASDIR [facility] Insulin Aspart (Novolog Vial Sliding Scale -) 1 vial SQ ACHS [facility]; Protocol Insulin Detemir (Levemir Vial) 20 units SQ HS [facility] Insulin Detemir (Levemir Vial) 20 units SQ AM [facility] Lisinopril (Prinivil) 5 mg PO DAILY [facility] Multi-Ingredient Lotion (Eucerin (Large Jar) -) 1 applic TP BID PRN PRN Reason: DRY SKIN Mupirocin (Bactroban Ointment (For Decolonization) -) 1 applic NS BID [facility] Stop: 01/19/19 21:59 Nystatin (Nystatin Oral Suspension -) 500,000 units PO Q6HPO [facility] Rivaroxaban (Xarelto) 20 mg PO DAILY@1800 [facility] ASSESSMENT AND PLAN: Acute on Chronic Diastolic Heart Failure Acute Kidney Injury Hyponatremia Morbid Obesity Obstructive Sleep Apnea Obesity Hypoventilation Syndrome COPD Anemia h/o DVT HTN UTI - IVF boluses - monitor urine output, creatinine - O2 to keep SpO2 >90% - inhaled bronchodilators - empiric antibiotics - BiPAP at night and PRN during day - continue anticoagulation - antibiotics for UTI, do not suspect pneumonia - continue ICU monitoring for now Problem List - Problems (1) Acute on chronic diastolic CHF (congestive heart failure) Code(s): I50.33 - ACUTE ON CHRONIC DIASTOLIC (CONGESTIVE) HEART FAILURE (2) Morbid (severe) obesity due to excess calories Code(s): E66.01 - MORBID (SEVERE) OBESITY DUE TO EXCESS CALORIES
--- NOTE | 2019-01-14 19:18 | PN ---
Progress Note (short form) - Note Progress Note: covering dr levy transferred to icu for low BP 1. Hypervolemic hyponatremia 2. Diastolic CHF with pleural effusions 3. Acute on chronic lower back pain 4. Morbid obesity 5. COPD/BONY Active Medications Acetaminophen (Tylenol -) 650 mg PO Q6H PRN PRN Reason: PAIN LEVEL 1-5 Albuterol/Ipratropium (Duoneb -) 1 amp NEB RQID [facility] Last Admin: 01/14/19 15:40 Dose: 1 amp Atorvastatin Calcium (Lipitor -) 10 mg PO HS [facility] Chlorhexidine Gluconate (Hibiclens For Decolonization -) 1 applic TP HS [facility] Dorzolamide HCl (Trusopt 2%) 1 drop OU BID [facility] Furosemide (Lasix Injection -) 40 mg IVPB BIDLASIX [facility] Piperacillin Sod/Tazobactam (Sod 4.5 gm/ Sodium Chloride) 100 mls @ 200 mls/hr IVPB Q8H-IV [facility]; Protocol Sodium Chloride (Normal Saline -) 1,000 mls @ 42 mls/hr IV ASDIR [facility] Last Admin: 01/14/19 17:27 Dose: 42 mls/hr Insulin Aspart (Novolog Vial Sliding Scale -) 1 vial SQ ACHS [facility]; Protocol Insulin Detemir (Levemir Vial) 20 units SQ HS [facility] Insulin Detemir (Levemir Vial) 20 units SQ AM [facility] Lisinopril (Prinivil) 5 mg PO DAILY [facility] Multi-Ingredient Lotion (Eucerin (Large Jar) -) 1 applic TP BID PRN PRN Reason: DRY SKIN Mupirocin (Bactroban Ointment (For Decolonization) -) 1 applic NS BID [facility] Stop: 01/19/19 21:59 Nystatin (Nystatin Oral Suspension -) 500,000 units PO Q6HPO [facility] Rivaroxaban (Xarelto) 20 mg PO DAILY@1800 [facility] Last Vital Signs Temp Pulse Resp BP Pulse Ox 97.8 F 109 H 18 80/62 L 97 01/14/19 16:00 01/14/19 18:00 01/14/19 16:00 01/14/19 16:00 01/14/19 16:25 CBC, BMP 01/13/19 10:15 01/14/19 08:56 IMP labs from the morning not much change now with hypotension woill need new w/u and management will follow
--- NOTE | 2019-01-14 19:39 | PROC ---
Procedure Note Procedure: I placed a femoral venous central line under the supervision of Kristi Bravo and Jorge, due to pt being a difficult peripheral access while in a hypotensive state refractory to fluid resuscitation. I received verbal consent via telephone conversation with pt's brother as well as verbal consent from the patient. The seldinger technique was performed appropriately using proper sterile procedure with minimal bleeding noted.
[2019-01-14] MEDS: RIVAROXABAN 20 MG TABLET PO SCH (19:52)
[2019-01-14 20:04] LABS: BASO % 0.3 % (0-2.0); EOS % 0.2 % (0-4.5); HEMATOCRIT 41.3 % (35.4-49); HEMOGLOBIN 13.7 GM/dL (11.7-16.9); MCH 31.4 pg (25.7-33.7); MCHC 33.3 g/dl (32.0-35.9); MEAN CELL VOLUME 94.4 fl (80-96); MEAN PLT VOLUME 7.3 fl (7.5-11.1); MONO % 5.6 % (3.8-10.2); NEUT % 87.9 % (42.8-82.8); PLATELET COUNT 242 K/MM3 (134-434); RBC 4.37 M/mm3 (4.00-5.60); RDW 14.1 % (11.9-15.9); WHITE BLOOD COUNT 11.8 K/mm3 (4.0-10.0)
[2019-01-14 20:34] LABS: ALBUMIN 2.4 g/dl (3.4-5.0); BILIRUBIN,TOTAL 0.8 mg/dL (0.2-1); BLOOD UREA NITROGEN 17.5 mg/dL (7-18); CALCIUM 8.9 mg/dL (8.5-10.1); TOT PROT 4.8 g/dl (6.4-8.2)
[2019-01-14 20:36] LABS: POTASSIUM 2.5 mmol/L (3.5-5.1)
[2019-01-14 20:52] LABS: PLATELET ESTIMATE ADEQUATE
[2019-01-14] MEDS: POTASSIUM CHLORIDE 20 MEQ PREMIX IVPB 100 ML IVPB SCH ×2 (21:49→22:46)
[2019-01-14] MEDS ORDERED: NOREPINEPHRINE BITARTRATE 4 MG/4 ML ML IV ONE (22:18)
[2019-01-14] MEDS: NOREPINEPHRINE BITARTRATE 8,000 MCG in DEXTROSE 5%-WATER - 492 ML IV SCH (22:28)
[2019-01-14] MEDS: ATORVASTATIN CA 10 MG TABLET (FP) PO SCH (22:45)
[2019-01-14] MEDS: INSULIN (LEVEMIR) 100 UNITS/ML UNITS SQ SCH (22:45)
[2019-01-14] MEDS: CHLORHEXIDINE GLUCONATE 4% CLEANSER FOR DECOLONIZATION TP SCH (22:46)
[2019-01-14] MEDS: MUPIROCIN 2% TOPICAL OINTMENT FOR DECOLONIZATION NS SCH (22:46)
[2019-01-14 23:40] LABS: ARTERIAL BLD GAS O2 SATURATION 98.9 % (95-98); ARTERIAL BLOOD GAS BASE EXCESS 3.3 meq/l (-2-2); ARTERIAL BLOOD GAS PCO2 41.3 mmHg (35-45); ARTERIAL BLOOD GAS PO2 137 mmHg (80-100); ARTERIAL BLOOD GAS pH 7.43 (7.35-7.45)
[2019-01-14 23:41] LABS: ALLENS TEST POSITIVE
[2019-01-15] MEDS: NYSTATIN 500,000 UNITS/5 ML SUSPENSION PO SCH ×5 (00:08→23:11)
[2019-01-15] MEDS: POTASSIUM CHLORIDE 20 MEQ PREMIX IVPB 100 ML IVPB SCH (00:08)
[2019-01-15] MEDS ORDERED: PIPERACILLIN/TAZOBACTAM 4.5 GM VIAL IVPB ONE ×3 (03:48→16:46)
[2019-01-15] MEDS ORDERED: SODIUM CHLORIDE 100 ML IVPB ONE ×3 (03:48→16:47)
[2019-01-15] MEDS: PIPERACILLIN/TAZOB 4.5 GM 4.5 GM in SODIUM CHLORIDE 100 ML IVPB SCH ×3 (04:04→17:08)
[2019-01-15] MEDS ORDERED: FUROSEMIDE 100 MG/10 ML INJECTABLE VIAL IVPB SCH (06:00)
[2019-01-15] MEDS: INSULIN (LEVEMIR) 100 UNITS/ML UNITS SQ SCH ×2 (06:39→21:48)
[2019-01-15] MEDS: INSULIN SLIDING SCALE (NOVOLOG) 1 VIAL SQ SCH ×4 (06:39→21:48)
[2019-01-15 07:29] LABS: HEMATOCRIT 44.7 % (35.4-49); MCHC 33.7 g/dl (32.0-35.9); MEAN CELL VOLUME 95.1 fl (80-96); MEAN PLT VOLUME 7.6 fl (7.5-11.1); PLATELET COUNT 242 K/MM3 (134-434); RDW 14.4 % (11.9-15.9); WHITE BLOOD COUNT 10.8 K/mm3 (4.0-10.0)
[2019-01-15 07:44] LABS: ALBUMIN 2.6 g/dl (3.4-5.0); CREATININE 2.1 mg/dL (0.55-1.3); MAGNESIUM 1.5 mg/dL (1.8-2.4); PHOSPHOROUS 3.1 mg/dL (2.5-4.9); POTASSIUM 3.2 mmol/L (3.5-5.1); TOT PROT 5.4 g/dl (6.4-8.2)
[2019-01-15] MEDS ORDERED: SODIUM CHLORIDE 500 ML IV STA ×2 (08:44→10:34)
[2019-01-15] MEDS ORDERED: POTASSIUM CHLORIDE TABS 20 MEQ TABLET.ER (FP) PO ONE (08:45)
--- NOTE | 2019-01-15 08:45 | PN ---
Progress Note, Physician Chief Complaint: Pneumonia Morbid Obesity COPD History of Present Illness: Previous notes and events reviewed patient more awake and alert today NAD Levophed drip on Bipap no acute events overnight - Current Medication List Current Medications: Active Medications Acetaminophen (Tylenol -) 650 mg PO Q6H PRN PRN Reason: PAIN LEVEL 1-5 Albuterol/Ipratropium (Duoneb -) 1 amp NEB RQID [facility] Last Admin: 01/14/19 20:19 Dose: 1 amp Atorvastatin Calcium (Lipitor -) 10 mg PO HS [facility] Last Admin: 01/14/19 22:45 Dose: Not Given Chlorhexidine Gluconate (Hibiclens For Decolonization -) 1 applic TP HS [facility] Last Admin: 01/14/19 22:46 Dose: 1 applic Dorzolamide HCl (Trusopt 2%) 1 drop OU BID [facility] Last Admin: 01/14/19 22:44 Dose: Not Given Furosemide (Lasix Injection -) 40 mg IVPB BIDLASIX [facility] Last Admin: 01/15/19 06:38 Dose: Not Given Piperacillin Sod/Tazobactam (Sod 4.5 gm/ Sodium Chloride) 100 mls @ 200 mls/hr IVPB Q8H-IV [facility]; Protocol Last Admin: 01/15/19 04:04 Dose: 200 mls/hr Norepinephrine Bitartrate 8, (000 mcg/ Dextrose) 500 mls @ 17.1 mls/hr IV ASDIR [facility]; Protocol Last Titration: 01/15/19 06:47 Dose: 0.06 mcg/kg/min, 34.21 mls/hr Sodium Chloride (Normal Saline -) 500 mls @ 500 mls/hr IV ASDIR STA Stop: 01/15/19 09:17 Insulin Aspart (Novolog Vial Sliding Scale -) 1 vial SQ ACHS [facility]; Protocol Last Admin: 01/15/19 06:39 Dose: Not Given Insulin Detemir (Levemir Vial) 20 units SQ HS [facility] Last Admin: 01/14/19 22:45 Dose: Not Given Insulin Detemir (Levemir Vial) 20 units SQ AM [facility] Last Admin: 01/15/19 06:39 Dose: Not Given Lisinopril (Prinivil) 5 mg PO DAILY [facility] Multi-Ingredient Lotion (Eucerin (Large Jar) -) 1 applic TP BID PRN PRN Reason: DRY SKIN Mupirocin (Bactroban Ointment (For Decolonization) -) 1 applic NS BID [facility] Stop: 01/19/19 21:59 Last Admin: 01/14/19 22:46 Dose: 1 applic Nystatin (Nystatin Oral Suspension -) 500,000 units PO Q6HPO [facility] Last Admin: 01/15/19 05:41 Dose: Not Given Potassium Chloride (K-Dur -) 40 meq PO ONCE ONE Stop: 01/15/19 08:19 Rivaroxaban (Xarelto) 20 mg PO DAILY@1800 [facility] Last Admin: 01/14/19 19:52 Dose: 20 mg - Objective Vital Signs: Vital Signs Temperature 97.7 F 01/15/19 06:00 Pulse Rate 108 H 01/15/19 06:47 Respiratory Rate 15 01/15/19 06:00 Blood Pressure 92/53 L 01/15/19 06:47 O2 Sat by Pulse Oximetry (%) 93 L 01/15/19 04:00 Constitutional: Yes: No Distress, Obese Eyes: Yes: Conjunctiva Clear HENT: Yes: Atraumatic Cardiovascular: Yes: Tachycardia Respiratory: Yes: Regular, Diminished, On BiPap Gastrointestinal: Yes: Normal Bowel Sounds, Soft, Abdomen, Obese Genitourinary: Yes: Aguilera Present Musculoskeletal: Yes: Muscle Weakness Extremities: Yes: WNL Edema: No Neurological: Yes: Alert Psychiatric: Yes: Alert Labs: CBC, BMP 01/15/19 05:45 01/15/19 05:45 INR, PTT INR 1.69 (0.83-1.09) H 01/09/19 17:55 Microbiology 01/09/19 23:02 Urine - Urine Clean Catch Urine Culture - Final Proteus Mirabilis 01/10/19 17:17 Urine For Antigen Detection Legionella Antigen - Final 01/10/19 17:17 Urine For Antigen Detection Streptococcus pneumoniae Antigen (M - Final Problem List - Problems (1) Acute exacerbation of chronic obstructive pulmonary disease (COPD) Assessment/Plan: -Pulm on board -Bipap -bronchodilators -keep SpO2 >90% Code(s): J44.1 - CHRONIC OBSTRUCTIVE PULMONARY DISEASE W (ACUTE) EXACERBATION (2) DVT of upper extremity (deep vein thrombosis) Assessment/Plan: -Xarelto Code(s): I82.629 - ACUTE EMBOLISM AND THROMBOSIS OF DEEP VN UNSP UP EXTREM (3) Diabetes Assessment/Plan: -BGM ACHS -ISS -Levemir -Endo on board -HgA1c 8.8% Code(s): E11.9 - TYPE 2 DIABETES MELLITUS WITHOUT COMPLICATIONS (4) HLD (hyperlipidemia) Assessment/Plan: -Atorvastatin Code(s): E78.5 - HYPERLIPIDEMIA, UNSPECIFIED (5) Hyperthyroidism Assessment/Plan: -Tapazole Code(s): E05.90 - THYROTOXICOSIS, UNSP WITHOUT THYROTOXIC CRISIS OR STORM (6) Hyponatremia Assessment/Plan: -Na 127 -Renal on board -monior Na level Code(s): E87.1 - HYPO-OSMOLALITY AND HYPONATREMIA (7) Morbid obesity Assessment/Plan: -RD consult Code(s): E66.01 - MORBID (SEVERE) OBESITY DUE TO EXCESS CALORIES (8) Thrush, oral Assessment/Plan: -Nystatin Code(s): B37.0 - CANDIDAL STOMATITIS (9) Thyromegaly Code(s): E01.0 - IODINE-DEFICIENCY RELATED DIFFUSE (ENDEMIC) GOITER (10) HTN (hypertension) Assessment/Plan: -Rampiril on hold Code(s): I10 - ESSENTIAL (PRIMARY) HYPERTENSION (11) Pneumonia Assessment/Plan: -Pulm and ID on board -Zosyn -Leukocytosis~WBC 10.8 -LA 7.2, repeat 2.0 -afebrile -CXR shows bibasilar consolidation,/atelectasis and possibly pleural fluid -Urine Legionella neg -Sputum culture pending -repeat CXR reviewed Code(s): J18.9 - PNEUMONIA, UNSPECIFIED ORGANISM (12) Hypotension Assessment/Plan: -tele monitoring -Levophed drip -maintain MAP >65 -BP meds on hold -re-consult cardiology Code(s): I95.9 - HYPOTENSION, UNSPECIFIED (13) Hypokalemia Assessment/Plan: -K 3.3 -KCl 40mEq PO x 1 dose -monitor electrolyte and replete as needed Code(s): E87.6 - HYPOKALEMIA Assessment/Plan see problem list
[2019-01-15] MEDS: ALBUTEROL SO4 2.5/IPRATROPIUM 0.5 INH SOL 3 ML VIAL.NEB. NEB SCH ×4 (09:04→20:30)
[2019-01-15 09:33] LABS: ARTERIAL BLD GAS O2 SATURATION 98.2 % (95-98); ARTERIAL BLOOD GAS BASE EXCESS 2.1 meq/l (-2-2); ARTERIAL BLOOD GAS PCO2 38.7 mmHg (35-45); ARTERIAL BLOOD GAS PO2 114 mmHg (80-100); ARTERIAL BLOOD GAS pH 7.44 (7.35-7.45)
[2019-01-15 09:34] LABS: ALLENS TEST POSITIVE
[2019-01-15] MEDS: DORZOLAMIDE 2% HCL OPHTHALMIC SOLUTION 10 ML BOTTLE OU SCH ×2 (09:59→21:52)
[2019-01-15] MEDS: MUPIROCIN 2% TOPICAL OINTMENT FOR DECOLONIZATION NS SCH ×2 (10:00→21:51)
[2019-01-15] MEDS ORDERED: LISINOPRIL 5 MG TABLET (FP) PO SCH (10:00)
--- NOTE | 2019-01-15 10:26 | PN ---
Teaching Attending Note Name of Resident: Radha Phillips ATTENDING PHYSICIAN STATEMENT I saw and evaluated the patient. I reviewed the resident's note and discussed the case with the resident. I agree with the resident's findings and plan as documented. SUBJECTIVE: Pt seen and examined in the ICU. Remains lethargic but arousable on BiPAP. Femoral line placed and started on levophed gtt. OBJECTIVE: Vital Signs Period Temp Pulse Resp BP Sys/Woodall Pulse Ox Last 24 Hr 97.7 F-97.9 F 48-118 15-19 53-155/37-91 93-100 Intake & Output 01/12/19 01/13/19 01/14/19 01/15/19 23:59 23:59 23:59 23:59 Intake Total 1420 1060 500 Output Total 1300 1600 100 Balance 120 -540 400 Weight 149.05 kg 152.067 kg 152.271 kg Gen: lethargic but arousable on BiPAP Heart: RRR Lung: decreased breath sounds at the bases Abd: soft, obese Ext: no edema CBC, BMP 01/15/19 05:45 01/15/19 05:45 Active Medications Acetaminophen (Tylenol -) 650 mg PO Q6H PRN PRN Reason: PAIN LEVEL 1-5 Albuterol/Ipratropium (Duoneb -) 1 amp NEB RQID [facility] Last Admin: 01/15/19 09:04 Dose: 1 amp Atorvastatin Calcium (Lipitor -) 10 mg PO HS [facility] Last Admin: 01/14/19 22:45 Dose: Not Given Chlorhexidine Gluconate (Hibiclens For Decolonization -) 1 applic TP HS [facility] Last Admin: 01/14/19 22:46 Dose: 1 applic Dorzolamide HCl (Trusopt 2%) 1 drop OU BID [facility] Last Admin: 01/15/19 09:59 Dose: 1 drop Piperacillin Sod/Tazobactam (Sod 4.5 gm/ Sodium Chloride) 100 mls @ 200 mls/hr IVPB Q8H-IV [facility]; Protocol Last Admin: 01/15/19 09:58 Dose: 200 mls/hr Norepinephrine Bitartrate 8, (000 mcg/ Dextrose) 500 mls @ 17.1 mls/hr IV ASDIR [facility]; Protocol Last Titration: 01/15/19 06:47 Dose: 0.06 mcg/kg/min, 34.21 mls/hr Potassium Chloride (Potassium Chloride 10 Meq Premix Ivpb -) 10 meq in 100 mls @ 100 mls/hr IVPB Q60M [facility] Stop: 01/15/19 13:14 Insulin Aspart (Novolog Vial Sliding Scale -) 1 vial SQ ACHS [facility]; Protocol Last Admin: 01/15/19 06:39 Dose: Not Given Insulin Detemir (Levemir Vial) 20 units SQ HS [facility] Last Admin: 01/14/19 22:45 Dose: Not Given Insulin Detemir (Levemir Vial) 20 units SQ AM [facility] Last Admin: 01/15/19 06:39 Dose: Not Given Multi-Ingredient Lotion (Eucerin (Large Jar) -) 1 applic TP BID PRN PRN Reason: DRY SKIN Mupirocin (Bactroban Ointment (For Decolonization) -) 1 applic NS BID [facility] Stop: 01/19/19 21:59 Last Admin: 01/15/19 10:00 Dose: 1 applic Nystatin (Nystatin Oral Suspension -) 500,000 units PO Q6HPO [facility] Last Admin: 01/15/19 05:41 Dose: Not Given Rivaroxaban (Xarelto) 20 mg PO DAILY@1800 [facility] Last Admin: 01/14/19 19:52 Dose: 20 mg ASSESSMENT AND PLAN: Acute on Chronic Diastolic Heart Failure UTI Shock - ?Septic Acute Kidney Injury Hyponatremia Morbid Obesity Obstructive Sleep Apnea Obesity Hypoventilation Syndrome COPD Anemia h/o DVT HTN - IVF boluses - monitor urine output, creatinine - titrate pressors to maintain MAP >65 - O2 to keep SpO2 >90% - inhaled bronchodilators - continue antibiotics - reculture - BiPAP at night and PRN during day - continue anticoagulation - continue ICU monitoring critical care time spent in reviewing chart, evaluating patient and formulating plan 35 min Problem List - Problems (1) Acute on chronic diastolic CHF (congestive heart failure) Code(s): I50.33 - ACUTE ON CHRONIC DIASTOLIC (CONGESTIVE) HEART FAILURE (2) Morbid (severe) obesity due to excess calories Code(s): E66.01 - MORBID (SEVERE) OBESITY DUE TO EXCESS CALORIES
[2019-01-15] MEDS ORDERED: MAGNESIUM SULF 50% (8.12 MEQ/2 ML-1 GM VIAL) IVPB ONE (10:37)
[2019-01-15] MEDS: KCL 10 MEQ IVPB 10 MEQ/100 ML INFUS.BAG IVPB SCH ×3 (11:03→14:24)
--- NOTE | 2019-01-15 11:03 | PN ---
Physical Exam: SUBJECTIVE: Patient seen and examined at bedside this morning. Patient remains on bipap overnight. Patient still lethargic but arousable to voice. Hypotensive overnight, on Levophed drip at 8mcg/min. OBJECTIVE: Vital Signs Temperature 98 F 01/15/19 10:00 Pulse Rate 106 H 01/15/19 10:00 Respiratory Rate 16 01/15/19 10:00 Blood Pressure 87/49 L 01/15/19 10:00 O2 Sat by Pulse Oximetry (%) 100 01/15/19 09:00 GENERAL: The patient is lethargic, arousable to voice, on bipap. EYES: PERRLA, EOMI, sclera anicteric, conjunctiva clear. NECK: Trachea midline, full range of motion, supple. LUNGS: decreased breath sounds bilaterally HEART: tachycardic, S1, S2 without murmur, rub or gallop. ABDOMEN: Soft, obese,nontender, nondistended, normoactive bowel sounds. EXTREMITIES: no peripheral edema. +skin ulcerations on all extremities NEUROLOGICAL: Lethargic, arousable to voice. AAOx3. Follows commands. Laboratory Results - last 24 hr 01/14/19 01/14/19 01/14/19 11:40 16:36 19:40 WBC 11.8 H RBC 4.37 Hgb 13.7 Hct 41.3 MCV 94.4 MCH 31.4 MCHC 33.3 RDW 14.1 Plt Count 242 MPV 7.3 L Absolute Neuts (auto) 10.4 H Neutrophils % 87.9 H Neutrophils % (Manual) 80.0 Band Neutrophils % 7.0 Lymphocytes % 6.0 L Lymphocytes % (Manual) 6.0 L Monocytes % 5.6 Monocytes % (Manual) 6 Eosinophils % 0.2 D Basophils % 0.3 Nucleated RBC % 0 Metamyelocytes 1 Platelet Estimate Adequate Anticoagulation Therapy No Result Required. Puncture Site Right radial ABG pH 7.47 H ABG pCO2 at Pt Temp 40.0 ABG pO2 at Pt Temp 130 H ABG HCO3 28.9 H ABG O2 Sat (Measured) 98.7 H ABG O2 Content No Result Required. ABG Base Excess 5.3 H Orlin Test Positive O2 Delivery Device Bipap Oxygen Flow Rate 30% Vent Mode S/t Vent Rate 14 Mechanical Rate Bipap Pressure Support Vent 22/18 Sodium Potassium Chloride Carbon Dioxide Anion Gap BUN Creatinine Est GFR (CKD-EPI)AfAm Est GFR (CKD-EPI)NonAf POC Glucometer Random Glucose Lactic Acid 7.2 H* Calcium Phosphorus Magnesium Total Bilirubin AST ALT Alkaline Phosphatase Total Protein Albumin 01/14/19 01/14/19 01/14/19 19:40 19:40 19:47 WBC RBC Hgb Hct MCV MCH MCHC RDW Plt Count MPV Absolute Neuts (auto) Neutrophils % Neutrophils % (Manual) Band Neutrophils % Lymphocytes % Lymphocytes % (Manual) Monocytes % Monocytes % (Manual) Eosinophils % Basophils % Nucleated RBC % Metamyelocytes Platelet Estimate Anticoagulation Therapy Puncture Site ABG pH ABG pCO2 at Pt Temp ABG pO2 at Pt Temp ABG HCO3 ABG O2 Sat (Measured) ABG O2 Content ABG Base Excess Orlin Test O2 Delivery Device Oxygen Flow Rate Vent Mode Vent Rate Mechanical Rate Pressure Support Vent Sodium 127 L Potassium 2.5 L* Chloride 83 L Carbon Dioxide 31 Anion Gap 12 BUN 17.5 Creatinine 2.0 H Est GFR (CKD-EPI)AfAm 44.42 Est GFR (CKD-EPI)NonAf 38.33 POC Glucometer 137 Random Glucose 129 H Lactic Acid 2.0 Calcium 8.9 Phosphorus Magnesium Total Bilirubin 0.8 AST 17 ALT 64 H Alkaline Phosphatase 100 Total Protein 4.8 L Albumin 2.4 L 01/14/19 01/14/19 01/15/19 22:41 23:20 05:45 WBC 10.8 H RBC 4.70 Hgb 15.0 Hct 44.7 MCV 95.1 MCH 32.0 MCHC 33.7 RDW 14.4 Plt Count 242 MPV 7.6 Absolute Neuts (auto) Neutrophils % Neutrophils % (Manual) Band Neutrophils % Lymphocytes % Lymphocytes % (Manual) Monocytes % Monocytes % (Manual) Eosinophils % Basophils % Nucleated RBC % Metamyelocytes Platelet Estimate Anticoagulation Therapy No Result Required. Puncture Site Right radial ABG pH 7.43 ABG pCO2 at Pt Temp 41.3 ABG pO2 at Pt Temp 137 H ABG HCO3 27.3 H ABG O2 Sat (Measured) 98.9 H ABG O2 Content 30.0 ABG Base Excess 3.3 H Orlin Test Positive O2 Delivery Device No Result Required. Oxygen Flow Rate Bipap Vent Mode No Result Required. Vent Rate No Result Required. Mechanical Rate No Result Required. Pressure Support Vent No Result Required. Sodium Potassium Chloride Carbon Dioxide Anion Gap BUN Creatinine Est GFR (CKD-EPI)AfAm Est GFR (CKD-EPI)NonAf POC Glucometer 134 Random Glucose Lactic Acid Calcium Phosphorus Magnesium Total Bilirubin AST ALT Alkaline Phosphatase Total Protein Albumin 01/15/19 01/15/19 01/15/19 05:45 06:24 09:20 WBC RBC Hgb Hct MCV MCH MCHC RDW Plt Count MPV Absolute Neuts (auto) Neutrophils % Neutrophils % (Manual) Band Neutrophils % Lymphocytes % Lymphocytes % (Manual) Monocytes % Monocytes % (Manual) Eosinophils % Basophils % Nucleated RBC % Metamyelocytes Platelet Estimate Anticoagulation Therapy No Result Required. Puncture Site Right radial ABG pH 7.44 ABG pCO2 at Pt Temp 38.7 ABG pO2 at Pt Temp 114 H ABG HCO3 25.8 ABG O2 Sat (Measured) 98.2 H ABG O2 Content 20.5 ABG Base Excess 2.1 H Orlin Test Positive O2 Delivery Device No Result Required. Oxygen Flow Rate 30 Vent Mode No Result Required. Vent Rate No Result Required. Mechanical Rate No Result Required. Pressure Support Vent No Result Required. Sodium 127 L Potassium 3.2 L Chloride 82 L Carbon Dioxide 28 Anion Gap 16 BUN 21.0 H Creatinine 2.1 H Est GFR (CKD-EPI)AfAm 41.88 Est GFR (CKD-EPI)NonAf 36.13 POC Glucometer 140 Random Glucose 137 H Lactic Acid Calcium 9.0 Phosphorus 3.1 Magnesium 1.5 L Total Bilirubin 1.0 AST 20 ALT 67 H Alkaline Phosphatase 114 Total Protein 5.4 L Albumin 2.6 L Active Medications Generic Name Dose Route Start Last Admin Trade Name Freq PRN Reason Stop Dose Admin Acetaminophen 650 mg 01/14/19 14:02 Tylenol - PO Q6H PRN PAIN LEVEL 1-5 Albuterol/Ipratropium 1 amp 01/14/19 16:00 01/15/19 09:04 Duoneb - NEB 1 amp RQID [facility] Administration Atorvastatin Calcium 10 mg 01/14/19 22:00 01/14/19 22:45 Lipitor - PO Not Given HS [facility] Chlorhexidine Gluconate 1 applic 01/14/19 22:00 01/14/19 22:46 Hibiclens For Decolonization - TP 1 applic HS [facility] Administration Dorzolamide HCl 1 drop 01/14/19 22:00 01/15/19 09:59 Trusopt 2% OU 1 drop BID [facility] Administration Piperacillin Sod/Tazobactam 100 mls @ 200 mls/hr 01/14/19 18:00 01/15/19 09: 58 Sod 4.5 gm/ Sodium Chloride IVPB 200 mls/hr Q8H-IV [facility] Administration Protocol Norepinephrine Bitartrate 8, 500 mls @ 17.1 mls/hr 01/14/19 22:15 01/15/19 06 :47 000 mcg/ Dextrose IV 0.06 mcg/kg/min ASDIR [facility] 34.21 mls/hr Titration Protocol 0.03 MCG/KG/MIN Potassium Chloride 10 meq in 100 mls @ 100 mls/hr 01/15/19 10:15 Potassium Chloride 10 Meq Premix Ivpb - IVPB 01/15/19 13:14 Q60M [facility] Sodium Chloride 1,000 mls @ 75 mls/hr 01/15/19 10:45 Normal Saline - IV ASDIR [facility] Sodium Chloride 500 mls @ 500 mls/hr 01/15/19 10:34 Normal Saline - IV 01/15/19 11:33 ASDIR STA Insulin Aspart 1 vial 01/14/19 16:30 01/15/19 06:39 Novolog Vial Sliding Scale - SQ Not Given ACHS [facility] Protocol Insulin Detemir 20 units 01/14/19 22:00 01/14/19 22:45 Levemir Vial SQ Not Given HS [facility] Insulin Detemir 20 units 01/15/19 07:00 01/15/19 06:39 Levemir Vial SQ Not Given AM [facility] Multi-Ingredient Lotion 1 applic 01/14/19 14:02 Eucerin (Large Jar) - TP BID PRN DRY SKIN Mupirocin 1 applic 01/14/19 22:00 01/15/19 10:00 Bactroban Ointment (For Decolonization) - NS 01/19/19 21:59 1 applic BID [facility] Administration Nystatin 500,000 units 01/14/19 18:00 01/15/19 05:41 Nystatin Oral Suspension - PO Not Given Q6HPO [facility] Rivaroxaban 20 mg 01/14/19 18:00 01/14/19 19:52 Xarelto PO 20 mg DAILY@1800 [facility] Administration ASSESSMENT/PLAN: Patient is a 48 year old male with past medical history of morbid obesity, OHS, BONY, COPD, diastolic CHF, anemia, history of UGI bleeding, HTN, hyperthyroidism , DVTs, who was initially admitted for acute on chronic diastolic CHF. In 01/14 , patient was found to be hypotensive and lethargic, and was transferred to the ICU. #Neurology Lethargy -more arousable today. -continue to monitor on bipap #Cardiology Hypotension -possible 2/2 increased diuresis, rule out septic shock -blood culture, ua, urine culture, sputum culture ordered -holding off Lasix and Lisinopril -IVF boluses given, and will start patient on IV NS @ 75cc/hr -On Levophed drip. Titrate pressors to maintain MAP >65 -Cardiology consulted. -Nephrology consulted. Acute on Chronic diastolic CHF -holding lasix -last ECHO 01/11: nondiagnostic, limited in quality. nl EF -strict I&O -IVF gentle hydration #ID UTI 2/ proteus -continue Zosyn 3.375 q8h -Culture reordered today -On Levophed ggt -ID consulted. #Pulmonology OHS, COPD -continue duonebs RQID and albuterol PRN -BiPAP at night and PRN during the day -O2 supplementation to keep SpO2 >90% #Renal Hypovolemic hyponatremia -IV NS boluses given -will start patient on IV NS @75cc/hr -Nephro on board -c/t monitor. asymptomatic MARVA likely pre-renal -hold lasix -IVF hydration -will continue monitor I&O and Cr Hypokalemia -repleted with KCl 10meq x3 #Heme Hx of DVT's -continue xarelto 20mg daily #F/E/N -IV NS @75cc/hr -routine bmp monitoring -NPO while on bipap #Prophylaxis -Xarelto 20mg daily #Dispo -ICU for closer monitoring Visit type - Emergency Visit Emergency Visit: Yes ED Registration Date: 01/09/19 Care time: The patient presented to the Emergency Department on the above date and was hospitalized for further evaluation of their emergent condition. - New Patient This patient is new to me today: Yes Date on this admission: 01/15/19 - Critical Care Critical Care patient: Yes Total Critical Care Time (in minutes): 35 Critical Care Statement: The care of this patient involved high complexity decision making to prevent further life threatening deterioration of the patient 's condition and/or to evaluate & treat vital organ system(s) failure or risk of failure. ATTENDING PHYSICIAN STATEMENT I saw and evaluated the patient. I reviewed the resident's note and discussed the case with the resident. I agree with the resident's findings and plan as documented. SUBJECTIVE: OBJECTIVE: ASSESSMENT AND PLAN:
[2019-01-15 11:08] LABS: EPI CELLS 23.5 /HPF (0-5/HPF); HYALINE CASTS 20 /lpf (0-8); URINE APPEARANCE TURBID; URINE BILIRUBIN NEGATIVE (NEGATIVE); URINE COLOR DK YELLOW; URINE GLUCOSE (UA) NEGATIVE (NEGATIVE); URINE KETONE TRACE (NEGATIVE); URINE LEUK ESTERASE 2+ (NEGATIVE); URINE NITRITE NEGATIVE (NEGATIVE); URINE PROTEIN 1+ (NEGATIVE); URINE WBC 61 /hpf (0-5)
[2019-01-15] MEDS: SODIUM CHLORIDE 1,000 ML IV SCH (11:08)
[2019-01-15 11:44] LABS: URINE BACTERIA 2.6 /hpf (NEGATIVE); URINE CRYSTALS CA OXALATE /hpf; URINE RBC 40.4 /hpf (0-4); YEAST NONE SEEN (NEGATIVE)
--- NOTE | 2019-01-15 15:48 | PN ---
Progress Note (short form) - Note Progress Note: covering dr levy in icu 1. Hypervolemic hyponatremia 2. Diastolic CHF with pleural effusions 3. Acute on chronic lower back pain 4. Morbid obesity 5. COPD/BONY Current Medications Acetaminophen (Tylenol -) 650 mg PO Q6H PRN PRN Reason: PAIN LEVEL 1-5 Albuterol/Ipratropium (Duoneb -) 1 amp NEB RQID [facility] Last Admin: 01/15/19 12:00 Dose: 1 amp Atorvastatin Calcium (Lipitor -) 10 mg PO HS [facility] Last Admin: 01/14/19 22:45 Dose: Not Given Chlorhexidine Gluconate (Hibiclens For Decolonization -) 1 applic TP HS [facility] Last Admin: 01/14/19 22:46 Dose: 1 applic Dorzolamide HCl (Trusopt 2%) 1 drop OU BID [facility] Last Admin: 01/15/19 09:59 Dose: 1 drop Piperacillin Sod/Tazobactam (Sod 4.5 gm/ Sodium Chloride) 100 mls @ 200 mls/hr IVPB Q8H-IV [facility]; Protocol Last Admin: 01/15/19 09:58 Dose: 200 mls/hr Norepinephrine Bitartrate 8, (000 mcg/ Dextrose) 500 mls @ 17.1 mls/hr IV ASDIR [facility]; Protocol Last Titration: 01/15/19 06:47 Dose: 0.06 mcg/kg/min, 34.21 mls/hr Sodium Chloride (Normal Saline -) 1,000 mls @ 75 mls/hr IV ASDIR [facility] Last Admin: 01/15/19 11:08 Dose: 75 mls/hr Insulin Aspart (Novolog Vial Sliding Scale -) 1 vial SQ ACHS [facility]; Protocol Last Admin: 01/15/19 12:46 Dose: Not Given Insulin Detemir (Levemir Vial) 20 units SQ HS [facility] Last Admin: 01/14/19 22:45 Dose: Not Given Insulin Detemir (Levemir Vial) 20 units SQ AM [facility] Last Admin: 01/15/19 06:39 Dose: Not Given Multi-Ingredient Lotion (Eucerin (Large Jar) -) 1 applic TP BID PRN PRN Reason: DRY SKIN Mupirocin (Bactroban Ointment (For Decolonization) -) 1 applic NS BID [facility] Stop: 01/19/19 21:59 Last Admin: 01/15/19 10:00 Dose: 1 applic Nystatin (Nystatin Oral Suspension -) 500,000 units PO Q6HPO [facility] Last Admin: 01/15/19 12:47 Dose: Not Given Rivaroxaban (Xarelto) 20 mg PO DAILY@1800 [facility] Last Admin: 01/14/19 19:52 Dose: 20 mg Last Vital Signs Temp Pulse Resp BP Pulse Ox 98 F 104 H 18 82/60 L 100 01/15/19 14:00 01/15/19 14:00 01/15/19 14:00 01/15/19 14:00 01/15/19 12:30 agitated, on bipap on levo decreased BS, poor cooperation Heart reg on monitor Abd soft ext no cyanosis CBC, BMP 01/15/19 05:45 01/15/19 05:45 CBC, BMP 01/13/19 10:15 01/14/19 08:56 IMP alfa on chronic prob prerenal conside giving saline for bp and oliguria hypokalemia s/p 3 runs Plan- replace K agree with trial of saline
--- NOTE | 2019-01-15 16:03 | PN ---
Progress Note, Physician Chief Complaint: Events noted Coverage for Drs. Chowdhury and Brayan Transferred to ICU after a rapid response for hypotension yesterday Currently arousable but in respiratory distress Morbid obesity History of Present Illness: Patient was seen and examined in ICU. Arousable. Chart was reviewed Intermittent hypotension currently on Levophed drip - Current Medication List Current Medications: Active Medications Acetaminophen (Tylenol -) 650 mg PO Q6H PRN PRN Reason: PAIN LEVEL 1-5 Albuterol/Ipratropium (Duoneb -) 1 amp NEB RQID [facility] Last Admin: 01/15/19 12:00 Dose: 1 amp Atorvastatin Calcium (Lipitor -) 10 mg PO HS [facility] Last Admin: 01/14/19 22:45 Dose: Not Given Chlorhexidine Gluconate (Hibiclens For Decolonization -) 1 applic TP HS [facility] Last Admin: 01/14/19 22:46 Dose: 1 applic Dorzolamide HCl (Trusopt 2%) 1 drop OU BID [facility] Last Admin: 01/15/19 09:59 Dose: 1 drop Piperacillin Sod/Tazobactam (Sod 4.5 gm/ Sodium Chloride) 100 mls @ 200 mls/hr IVPB Q8H-IV [facility]; Protocol Last Admin: 01/15/19 09:58 Dose: 200 mls/hr Norepinephrine Bitartrate 8, (000 mcg/ Dextrose) 500 mls @ 17.1 mls/hr IV ASDIR [facility]; Protocol Last Titration: 01/15/19 06:47 Dose: 0.06 mcg/kg/min, 34.21 mls/hr Sodium Chloride (Normal Saline -) 1,000 mls @ 75 mls/hr IV ASDIR [facility] Last Admin: 01/15/19 11:08 Dose: 75 mls/hr Insulin Aspart (Novolog Vial Sliding Scale -) 1 vial SQ ACHS [facility]; Protocol Last Admin: 01/15/19 12:46 Dose: Not Given Insulin Detemir (Levemir Vial) 20 units SQ HS [facility] Last Admin: 01/14/19 22:45 Dose: Not Given Insulin Detemir (Levemir Vial) 20 units SQ AM [facility] Last Admin: 01/15/19 06:39 Dose: Not Given Multi-Ingredient Lotion (Eucerin (Large Jar) -) 1 applic TP BID PRN PRN Reason: DRY SKIN Mupirocin (Bactroban Ointment (For Decolonization) -) 1 applic NS BID [facility] Stop: 01/19/19 21:59 Last Admin: 01/15/19 10:00 Dose: 1 applic Nystatin (Nystatin Oral Suspension -) 500,000 units PO Q6HPO [facility] Last Admin: 01/15/19 12:47 Dose: Not Given Rivaroxaban (Xarelto) 20 mg PO DAILY@1800 [facility] Last Admin: 01/14/19 19:52 Dose: 20 mg - Objective Vital Signs: Vital Signs Temperature 98 F 01/15/19 14:00 Pulse Rate 104 H 01/15/19 14:00 Respiratory Rate 18 01/15/19 14:00 Blood Pressure 82/60 L 01/15/19 14:00 O2 Sat by Pulse Oximetry (%) 100 01/15/19 12:30 Neck: Yes: Supple Cardiovascular: Yes: Regular Rate and Rhythm, Tachycardia, S1, S2 Respiratory: Yes: Diminished Gastrointestinal: Yes: Normal Bowel Sounds, Soft, Abdomen, Obese. No: Tenderness Edema: Yes Labs: CBC, BMP 01/15/19 05:45 01/15/19 05:45 INR, PTT INR 1.69 (0.83-1.09) H 01/09/19 17:55 Problem List - Problems (1) Acute exacerbation of chronic obstructive pulmonary disease (COPD) Code(s): J44.1 - CHRONIC OBSTRUCTIVE PULMONARY DISEASE W (ACUTE) EXACERBATION (2) Anemia Code(s): D64.9 - ANEMIA, UNSPECIFIED (3) DVT (deep venous thrombosis) Code(s): I82.409 - ACUTE EMBOLISM AND THOMBOS UNSP DEEP VN UNSP LOWER EXTREMITY (4) Diabetes Code(s): E11.9 - TYPE 2 DIABETES MELLITUS WITHOUT COMPLICATIONS (5) HLD (hyperlipidemia) Code(s): E78.5 - HYPERLIPIDEMIA, UNSPECIFIED (6) Hypotension Code(s): I95.9 - HYPOTENSION, UNSPECIFIED (7) Acute and chronic respiratory failure (wyucs-na-lbgakcl) Code(s): J96.20 - ACUTE AND CHR RESP FAILURE, UNSP W HYPOXIA OR HYPERCAPNIA (8) Acute on chronic diastolic CHF (congestive heart failure) Code(s): I50.33 - ACUTE ON CHRONIC DIASTOLIC (CONGESTIVE) HEART FAILURE (9) Acute on chronic respiratory failure with hypoxia and hypercapnia Code(s): J96.21 - ACUTE AND CHRONIC RESPIRATORY FAILURE WITH HYPOXIA; J96.22 - ACUTE AND CHRONIC RESPIRATORY FAILURE WITH HYPERCAPNIA (10) COPD exacerbation Code(s): J44.1 - CHRONIC OBSTRUCTIVE PULMONARY DISEASE W (ACUTE) EXACERBATION (11) HTN (hypertension) Code(s): I10 - ESSENTIAL (PRIMARY) HYPERTENSION (12) Hyperlipidemia Code(s): E78.5 - HYPERLIPIDEMIA, UNSPECIFIED (13) Moderate to severe pulmonary hypertension Code(s): I27.2 - OTHER SECONDARY PULMONARY HYPERTENSION * DO NOT USE * (14) Morbid (severe) obesity due to excess calories Code(s): E66.01 - MORBID (SEVERE) OBESITY DUE TO EXCESS CALORIES (15) Obstructive apnea Code(s): G47.33 - OBSTRUCTIVE SLEEP APNEA (ADULT) (PEDIATRIC) (16) Sepsis Code(s): A41.9 - SEPSIS, UNSPECIFIED ORGANISM Qualifiers: Sepsis type: sepsis due to unspecified organism Qualified Code(s): A41.9 - Sepsis, unspecified organism (17) Sleep apnea Code(s): G47.30 - SLEEP APNEA, UNSPECIFIED (18) Thyrotoxicosis with diffuse goiter and without thyroid storm Code(s): E05.00 - THYROTOXICOSIS W DIFFUSE GOITER W/O THYROTOXIC CRISIS Assessment/Plan 1. Acute exacerbation of COPD/respiratory distress 2. Hypotension due to sepsis 3. Morbid obesity 4. Acute on chronic diastolic heart failure 5. History of HTN 6. History of DVT 7. Hypercholesterolemia 8. Moderate to severe pulmonary HTN and BONY 9. DM 10. Hyperthyroidism PLAN: 1. ICU monitoring and continue current management as per critical care team 2. Continue Levophed and keep MAP > 65 3. Antibiotic coverage 4. Pulmonary treatment including CPAP, bronchodilator 5. Xarelto if able to continue with PO med, otherwise use Heparin ( unfractionated) or Lovenox Guarded Dr. Chowdhury to resume care in AM Stuart Ramirez MD
--- NOTE | 2019-01-15 16:51 | EKG ---
Test Reason : Blood Pressure : / mmHG Vent. Rate : 101 BPM Atrial Rate : 101 BPM P-R Int : 164 ms QRS Dur : 090 ms QT Int : 548 ms P-R-T Axes : 066 087 053 degrees QTc Int : 710 ms SINUS TACHYCARDIA WITH FREQUENT PREMATURE VENTRICULAR COMPLEXES LOW VOLTAGE QRS PROLONGED QT ABNORMAL ECG WHEN COMPARED WITH ECG OF 09-JAN-2019 17:49, PREMATURE VENTRICULAR COMPLEXES ARE NOW PRESENT Confirmed by ED GIANG, DIAN ([id number]) on 01/15/2019 4:51:42 PM Referred By: Sabrina STANLEY Confirmed By:DIAN WARD MD
[2019-01-15] MEDS ORDERED: NOREPINEPHRINE BITARTRATE 4 MG/4 ML ML IV ONE (17:10)
[2019-01-15] MEDS: NOREPINEPHRINE BITARTRATE 8,000 MCG in DEXTROSE 5%-WATER - 492 ML IV SCH (17:11)
[2019-01-15] MEDS: RIVAROXABAN 20 MG TABLET PO SCH (17:20)
[2019-01-15] MEDS ORDERED: NOREPINEPHRINE BITARTRATE 8,000 MCG in DEXTROSE 5%-WATER - 492 ML IV SCH ×2 (17:40→19:00)
[2019-01-15] MEDS: ATORVASTATIN CA 10 MG TABLET (FP) PO SCH (21:48)
[2019-01-15] MEDS: CHLORHEXIDINE GLUCONATE 4% CLEANSER FOR DECOLONIZATION TP SCH (21:50)
[2019-01-16] MEDS ORDERED: PIPERACILLIN/TAZOBACTAM 4.5 GM VIAL IVPB ONE ×4 (01:30→18:06)
[2019-01-16] MEDS ORDERED: SODIUM CHLORIDE 100 ML IVPB ONE ×4 (01:31→18:06)
[2019-01-16] MEDS: PIPERACILLIN/TAZOB 4.5 GM 4.5 GM in SODIUM CHLORIDE 100 ML IVPB SCH ×3 (01:43→17:54)
[2019-01-16] MEDS: NYSTATIN 500,000 UNITS/5 ML SUSPENSION PO SCH ×5 (06:21→23:53)
[2019-01-16] MEDS: INSULIN SLIDING SCALE (NOVOLOG) 1 VIAL SQ SCH ×4 (06:23→21:47)
[2019-01-16] MEDS: INSULIN (LEVEMIR) 100 UNITS/ML UNITS SQ SCH ×2 (06:35→21:45)
[2019-01-16] MEDS: SODIUM CHLORIDE 1,000 ML IV SCH (06:50)
[2019-01-16 06:55] LABS: ALBUMIN 2.3 g/dl (3.4-5.0); BILIRUBIN,TOTAL 0.9 mg/dL (0.2-1); BLOOD UREA NITROGEN 23.2 mg/dL (7-18); CALCIUM 8.3 mg/dL (8.5-10.1); CREATININE 2.5 mg/dL (0.55-1.3); POTASSIUM 3.1 mmol/L (3.5-5.1)
[2019-01-16 06:59] LABS: HEMATOCRIT 42.2 % (35.4-49); HEMOGLOBIN 14.6 GM/dL (11.7-16.9); MCH 32.6 pg (25.7-33.7); MCHC 34.7 g/dl (32.0-35.9); MEAN PLT VOLUME 7.3 fl (7.5-11.1); PLATELET COUNT 215 K/MM3 (134-434); RBC 4.49 M/mm3 (4.00-5.60); RDW 14.2 % (11.9-15.9)
[2019-01-16] MEDS ORDERED: POTASSIUM CHLORIDE 20 MEQ PREMIX IVPB 100 ML IVPB ONE (07:25)
[2019-01-16] MEDS: ALBUTEROL SO4 2.5/IPRATROPIUM 0.5 INH SOL 3 ML VIAL.NEB. NEB SCH ×4 (08:15→21:15)
[2019-01-16] MEDS: KCL 10 MEQ IVPB 10 MEQ/100 ML INFUS.BAG IVPB SCH ×3 (08:24→10:24)
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
--- NOTE | 2019-01-16 09:28 | PN ---
Progress Note, Physician - Current Medication List Current Medications: Active Medications Acetaminophen (Tylenol -) 650 mg PO Q6H PRN PRN Reason: PAIN LEVEL 1-5 Albuterol/Ipratropium (Duoneb -) 1 amp NEB RQID [facility] Last Admin: 01/15/19 20:30 Dose: 1 amp Atorvastatin Calcium (Lipitor -) 10 mg PO HS [facility] Last Admin: 01/15/19 21:48 Dose: Not Given Chlorhexidine Gluconate (Hibiclens For Decolonization -) 1 applic TP HS [facility] Last Admin: 01/15/19 21:50 Dose: 1 applic Dorzolamide HCl (Trusopt 2%) 1 drop OU BID [facility] Last Admin: 01/15/19 21:52 Dose: 1 drop Piperacillin Sod/Tazobactam (Sod 4.5 gm/ Sodium Chloride) 100 mls @ 200 mls/hr IVPB Q8H-IV [facility]; Protocol Last Admin: 01/16/19 01:43 Dose: 200 mls/hr Sodium Chloride (Normal Saline -) 1,000 mls @ 75 mls/hr IV ASDIR [facility] Last Admin: 01/16/19 06:50 Dose: 75 mls/hr Norepinephrine Bitartrate 8, (000 mcg/ Dextrose) 500 mls @ 0.11 mls/hr IV TITR [facility]; Protocol Potassium Chloride (Potassium Chloride 10 Meq Premix Ivpb -) 10 meq in 100 mls @ 100 mls/hr IVPB Q60M [facility] Stop: 01/16/19 10:29 Last Admin: 01/16/19 08:26 Dose: 100 mls/hr Insulin Aspart (Novolog Vial Sliding Scale -) 1 vial SQ ACHS [facility]; Protocol Last Admin: 01/16/19 06:23 Dose: Not Given Insulin Detemir (Levemir Vial) 20 units SQ HS [facility] Last Admin: 01/15/19 21:48 Dose: Not Given Insulin Detemir (Levemir Vial) 20 units SQ AM [facility] Last Admin: 01/16/19 06:35 Dose: 20 units Multi-Ingredient Lotion (Eucerin (Large Jar) -) 1 applic TP BID PRN PRN Reason: DRY SKIN Mupirocin (Bactroban Ointment (For Decolonization) -) 1 applic NS BID [facility] Stop: 01/19/19 21:59 Last Admin: 01/15/19 21:51 Dose: 1 applic Nystatin (Nystatin Oral Suspension -) 500,000 units PO Q6HPO [facility] Last Admin: 01/16/19 06:21 Dose: Not Given Rivaroxaban (Xarelto) 20 mg PO DAILY@1800 [facility] Last Admin: 01/15/19 17:20 Dose: 20 mg - Objective Vital Signs: Vital Signs Temperature 97.7 F 01/16/19 06:00 Pulse Rate 100 H 01/16/19 08:00 Respiratory Rate 20 01/16/19 08:00 Blood Pressure 93/76 01/16/19 08:00 O2 Sat by Pulse Oximetry (%) 100 01/16/19 04:38 Cardiovascular: Yes: S1, S2 Respiratory: Yes: Diminished, On BiPap Gastrointestinal: Yes: Normal Bowel Sounds, Soft Edema: Yes Neurological: Yes: Weakness Labs: CBC, BMP 01/16/19 06:10 01/16/19 06:10 INR, PTT INR 1.69 (0.83-1.09) H 01/09/19 17:55 Assessment/Plan - Problems (1) Acute exacerbation of chronic obstructive pulmonary disease (COPD) Assessment/Plan: -Pulm on board -Bipap -bronchodilators -keep SpO2 >90% Code(s): J44.1 - CHRONIC OBSTRUCTIVE PULMONARY DISEASE W (ACUTE) EXACERBATION (2) DVT of upper extremity (deep vein thrombosis) Assessment/Plan: -Xarelto Code(s): I82.629 - ACUTE EMBOLISM AND THROMBOSIS OF DEEP VN UNSP UP EXTREM (3) Diabetes Assessment/Plan: -BGM ACHS -ISS -Levemir -Endo on board -HgA1c 8.8% Code(s): E11.9 - TYPE 2 DIABETES MELLITUS WITHOUT COMPLICATIONS (4) HLD (hyperlipidemia) Assessment/Plan: -Atorvastatin Code(s): E78.5 - HYPERLIPIDEMIA, UNSPECIFIED (5) Hyperthyroidism Assessment/Plan: -Tapazole Code(s): E05.90 - THYROTOXICOSIS, UNSP WITHOUT THYROTOXIC CRISIS OR STORM (6) Hyponatremia Assessment/Plan: -Na 124 -Renal on board -monior Na level Code(s): E87.1 - HYPO-OSMOLALITY AND HYPONATREMIA (7) Morbid obesity Assessment/Plan: -RD consult Code(s): E66.01 - MORBID (SEVERE) OBESITY DUE TO EXCESS CALORIES (8) Thrush, oral Assessment/Plan: -Nystatin Code(s): B37.0 - CANDIDAL STOMATITIS (9) Thyromegaly ent on board not surgical candidate at this time Code(s): E01.0 - IODINE-DEFICIENCY RELATED DIFFUSE (ENDEMIC) GOITER (10) HTN (hypertension) Assessment/Plan: -Rampiril on hold Code(s): I10 - ESSENTIAL (PRIMARY) HYPERTENSION (11) Pneumonia Assessment/Plan: -Pulm and ID on board -Zosyn -Leukocytosis~WBC 10.8 -LA 7.2, repeat 2.0 -afebrile -CXR shows bibasilar consolidation,/atelectasis and possibly pleural fluid -Urine Legionella neg -Sputum culture pending -repeat CXR reviewed Code(s): J18.9 - PNEUMONIA, UNSPECIFIED ORGANISM (12) Hypotension Assessment/Plan: -tele monitoring -Levophed drip -maintain MAP >65 -BP meds on hold -re-consult cardiology Code(s): I95.9 - HYPOTENSION, UNSPECIFIED (13) Hypokalemia Assessment/Plan: -K 3.3 -KCl x 1 dose -dc ns--start clinimex -monitor electrolyte and replete as needed Code(s): E87.6 - HYPOKALEMIA
[2019-01-16] MEDS ORDERED: AMINO ACIDS 4.25%/D5W 1,000 ML IV SCH (10:00)
[2019-01-16] MEDS: MUPIROCIN 2% TOPICAL OINTMENT FOR DECOLONIZATION NS SCH ×2 (10:11→21:46)
[2019-01-16] MEDS: DORZOLAMIDE 2% HCL OPHTHALMIC SOLUTION 10 ML BOTTLE OU SCH ×2 (10:12→21:47)
[2019-01-16] MEDS: NOREPINEPHRINE BITARTRATE 8,000 MCG in DEXTROSE 5%-WATER - 492 ML IV SCH ×2 (10:18→19:07)
--- NOTE | 2019-01-16 10:51 | PN ---
Progress Note, Physician History of Present Illness: AWAKE, LETHARGIC NO COMPLAINTS BREATHING NON-LABORED ON BIPAP HYPOTENSIVE ON PRESSORS AFEBRILE WBC IMPROVED AZOTEMIA WORSENED - Current Medication List Current Medications: Active Medications Acetaminophen (Tylenol -) 650 mg PO Q6H PRN PRN Reason: PAIN LEVEL 1-5 Albuterol/Ipratropium (Duoneb -) 1 amp NEB RQID [facility] Last Admin: 01/16/19 08:15 Dose: 1 amp Atorvastatin Calcium (Lipitor -) 10 mg PO HS [facility] Last Admin: 01/15/19 21:48 Dose: Not Given Chlorhexidine Gluconate (Hibiclens For Decolonization -) 1 applic TP HS [facility] Last Admin: 01/15/19 21:50 Dose: 1 applic Dorzolamide HCl (Trusopt 2%) 1 drop OU BID [facility] Last Admin: 01/16/19 10:12 Dose: 1 drop Piperacillin Sod/Tazobactam (Sod 4.5 gm/ Sodium Chloride) 100 mls @ 200 mls/hr IVPB Q8H-IV [facility]; Protocol Last Admin: 01/16/19 10:13 Dose: 200 mls/hr Norepinephrine Bitartrate 8, (000 mcg/ Dextrose) 500 mls @ 0.11 mls/hr IV TITR [facility]; Protocol Last Admin: 01/16/19 10:18 Dose: 20 mcg/min, 75 mls/hr Amino Acids (Clinimix -) 1,000 mls @ 84 mls/hr IV Q12H [facility] Insulin Aspart (Novolog Vial Sliding Scale -) 1 vial SQ ACHS [facility]; Protocol Last Admin: 01/16/19 06:23 Dose: Not Given Insulin Detemir (Levemir Vial) 20 units SQ HS [facility] Last Admin: 01/15/19 21:48 Dose: Not Given Insulin Detemir (Levemir Vial) 20 units SQ AM [facility] Last Admin: 01/16/19 06:35 Dose: 20 units Multi-Ingredient Lotion (Eucerin (Large Jar) -) 1 applic TP BID PRN PRN Reason: DRY SKIN Mupirocin (Bactroban Ointment (For Decolonization) -) 1 applic NS BID [facility] Stop: 01/19/19 21:59 Last Admin: 01/16/19 10:11 Dose: 1 applic Nystatin (Nystatin Oral Suspension -) 500,000 units PO Q6HPO [facility] Last Admin: 01/16/19 06:21 Dose: Not Given Rivaroxaban (Xarelto) 20 mg PO DAILY@1800 [facility] Last Admin: 01/15/19 17:20 Dose: 20 mg - Objective Vital Signs: Vital Signs Temperature 97.7 F 01/16/19 06:00 Pulse Rate 109 H 01/16/19 10:18 Respiratory Rate 20 01/16/19 08:00 Blood Pressure 79/33 L 01/16/19 10:18 O2 Sat by Pulse Oximetry (%) 100 01/16/19 10:00 Constitutional: Yes: No Distress, Obese Eyes: Yes: Conjunctiva Clear Cardiovascular: Yes: Regular Rate and Rhythm, S1, S2 Respiratory: Yes: Diminished Gastrointestinal: Yes: Normal Bowel Sounds, Soft. No: Tenderness Extremities: Yes: Other (+ CHRONIC VENOUS STASIS DERMATITIS) Edema: Yes Labs: CBC, BMP 01/16/19 06:10 01/16/19 06:10 INR, PTT INR 1.69 (0.83-1.09) H 01/09/19 17:55 Assessment/Plan CHF COPD ? HCAP LEUKOCYTOSIS IMPROVED AZOTEMIA SL WORSENED MORBID OBESITY CONTINUE EMPIRIC ZOSYN
--- NOTE | 2019-01-16 11:04 | PN ---
Teaching Attending Note Name of Resident: Andrés Tai ATTENDING PHYSICIAN STATEMENT I saw and evaluated the patient. I reviewed the resident's note and discussed the case with the resident. I agree with the resident's findings and plan as documented. SUBJECTIVE: Pt seen and examined in the ICU. Remains lethargic on BiPAP. Apparently femoral line leaking. On levophed gtt. OBJECTIVE: Vital Signs Period Temp Pulse Resp BP Sys/Woodall Pulse Ox Last 24 Hr 97.7 F-98.2 F 98-110 15-20 79-140/33-108 100-100 Intake & Output 01/13/19 01/14/19 01/15/19 01/16/19 23:59 23:59 23:59 23:59 Intake Total 0273 807 0468 1625 Output Total 1600 100 325 Balance -221 719 9100 1300 Weight 152.067 kg 152.271 kg 154.04 kg Gen: lethargic on BiPAP Heart: RRR Lung: distant breath sounds Abd: soft, nontender Ext: no edema CBC, BMP 01/16/19 06:10 01/16/19 06:10 Active Medications Acetaminophen (Tylenol -) 650 mg PO Q6H PRN PRN Reason: PAIN LEVEL 1-5 Albuterol/Ipratropium (Duoneb -) 1 amp NEB RQID [facility] Last Admin: 01/16/19 08:15 Dose: 1 amp Atorvastatin Calcium (Lipitor -) 10 mg PO HS [facility] Last Admin: 01/15/19 21:48 Dose: Not Given Chlorhexidine Gluconate (Hibiclens For Decolonization -) 1 applic TP HS [facility] Last Admin: 01/15/19 21:50 Dose: 1 applic Dorzolamide HCl (Trusopt 2%) 1 drop OU BID [facility] Last Admin: 01/16/19 10:12 Dose: 1 drop Piperacillin Sod/Tazobactam (Sod 4.5 gm/ Sodium Chloride) 100 mls @ 200 mls/hr IVPB Q8H-IV [facility]; Protocol Last Admin: 01/16/19 10:13 Dose: 200 mls/hr Norepinephrine Bitartrate 8, (000 mcg/ Dextrose) 500 mls @ 0.11 mls/hr IV TITR [facility]; Protocol Last Admin: 01/16/19 10:18 Dose: 20 mcg/min, 75 mls/hr Amino Acids (Clinimix -) 1,000 mls @ 84 mls/hr IV Q12H [facility] Insulin Aspart (Novolog Vial Sliding Scale -) 1 vial SQ ACHS [facility]; Protocol Last Admin: 01/16/19 06:23 Dose: Not Given Insulin Detemir (Levemir Vial) 20 units SQ HS [facility] Last Admin: 01/15/19 21:48 Dose: Not Given Insulin Detemir (Levemir Vial) 20 units SQ AM [facility] Last Admin: 01/16/19 06:35 Dose: 20 units Multi-Ingredient Lotion (Eucerin (Large Jar) -) 1 applic TP BID PRN PRN Reason: DRY SKIN Mupirocin (Bactroban Ointment (For Decolonization) -) 1 applic NS BID [facility] Stop: 01/19/19 21:59 Last Admin: 01/16/19 10:11 Dose: 1 applic Nystatin (Nystatin Oral Suspension -) 500,000 units PO Q6HPO [facility] Last Admin: 01/16/19 06:21 Dose: Not Given Rivaroxaban (Xarelto) 20 mg PO DAILY@1800 [facility] Last Admin: 01/15/19 17:20 Dose: 20 mg ASSESSMENT AND PLAN: Acute on Chronic Diastolic Heart Failure UTI Shock - ?Septic Acute Kidney Injury Hyponatremia Morbid Obesity Obstructive Sleep Apnea Obesity Hypoventilation Syndrome COPD Anemia h/o DVT HTN - will change central line - monitor urine output, creatinine - titrate pressors to maintain MAP >65 - start stress dose steroids - O2 to keep SpO2 >90% - inhaled bronchodilators - continue antibiotics - reculture - BiPAP at night and PRN during day - continue anticoagulation - continue ICU monitoring critical care time spent in reviewing chart, evaluating patient and formulating plan 35 min Problem List - Problems (1) Acute on chronic diastolic CHF (congestive heart failure) Code(s): I50.33 - ACUTE ON CHRONIC DIASTOLIC (CONGESTIVE) HEART FAILURE (2) Morbid (severe) obesity due to excess calories Code(s): E66.01 - MORBID (SEVERE) OBESITY DUE TO EXCESS CALORIES
[2019-01-16] MEDS ORDERED: NOREPINEPHRINE BITARTRATE 4 MG/4 ML ML IV ONE ×2 (11:16→18:55)
--- NOTE | 2019-01-16 11:56 | PROC ---
Central Line Insertion Indication: Vasopressor Risks and Benefits Explained: Yes Consent on Chart: Yes Central Line: Triple Lumen Catheter Anesthesia: 1% Lidocaine Sterile Technique: Yes Ultrasound Guided Assistance: Yes Position: Right Internal Jugular Post Insertion: Yes: Chest X-Ray Ordered Sterile Dressing Applied: Yes
--- NOTE | 2019-01-16 12:28 | PN ---
Progress Note (short form) - Note Progress Note: Renal follow up for hyponatremia Seen and examined in the ICU chart reviewed, events noted on BIPAP, awake and alert on Levophed and IV saline making urine via wilhelm BP readings have been low Vital Signs Temperature 97.7 F 01/16/19 06:00 Pulse Rate 109 H 01/16/19 10:18 Respiratory Rate 20 01/16/19 08:00 Blood Pressure 79/33 L 01/16/19 10:18 O2 Sat by Pulse Oximetry (%) 100 01/16/19 10:00 Intake & Output 01/13/19 01/14/19 01/15/19 01/16/19 23:59 23:59 23:59 23:59 Intake Total 4846 908 5052 1625 Output Total 1600 100 325 Balance -288 105 6764 1300 Weight 152.067 kg 152.271 kg 154.04 kg NAD trace LE edema CBC, BMP 01/16/19 06:10 01/16/19 06:10 Current Medications Acetaminophen (Tylenol -) 650 mg PO Q6H PRN PRN Reason: PAIN LEVEL 1-5 Albuterol/Ipratropium (Duoneb -) 1 amp NEB RQID [facility] Last Admin: 01/16/19 11:40 Dose: 1 amp Atorvastatin Calcium (Lipitor -) 10 mg PO HS [facility] Last Admin: 01/15/19 21:48 Dose: Not Given Chlorhexidine Gluconate (Hibiclens For Decolonization -) 1 applic TP HS [facility] Last Admin: 01/15/19 21:50 Dose: 1 applic Dorzolamide HCl (Trusopt 2%) 1 drop OU BID [facility] Last Admin: 01/16/19 10:12 Dose: 1 drop Fludrocortisone Acetate (Florinef -) 0.2 mg PO DAILY [facility] Hydrocortisone Sodium Succinate (Solu-Cortef -) 100 mg IVPB Q8H-IV [facility] Piperacillin Sod/Tazobactam (Sod 4.5 gm/ Sodium Chloride) 100 mls @ 200 mls/hr IVPB Q8H-IV [facility]; Protocol Last Admin: 01/16/19 10:13 Dose: 200 mls/hr Norepinephrine Bitartrate 8, (000 mcg/ Dextrose) 500 mls @ 0.11 mls/hr IV TITR [facility]; Protocol Last Admin: 01/16/19 10:18 Dose: 20 mcg/min, 75 mls/hr Amino Acids (Clinimix -) 1,000 mls @ 84 mls/hr IV Q12H [facility] Insulin Aspart (Novolog Vial Sliding Scale -) 1 vial SQ ACHS [facility]; Protocol Last Admin: 01/16/19 06:23 Dose: Not Given Insulin Detemir (Levemir Vial) 20 units SQ HS [facility] Last Admin: 01/15/19 21:48 Dose: Not Given Insulin Detemir (Levemir Vial) 20 units SQ AM [facility] Last Admin: 01/16/19 06:35 Dose: 20 units Multi-Ingredient Lotion (Eucerin (Large Jar) -) 1 applic TP BID PRN PRN Reason: DRY SKIN Mupirocin (Bactroban Ointment (For Decolonization) -) 1 applic NS BID [facility] Stop: 01/19/19 21:59 Last Admin: 01/16/19 10:11 Dose: 1 applic Nystatin (Nystatin Oral Suspension -) 500,000 units PO Q6HPO [facility] Last Admin: 01/16/19 06:21 Dose: Not Given Rivaroxaban (Xarelto) 20 mg PO DAILY@1800 [facility] Last Admin: 01/15/19 17:20 Dose: 20 mg 48 year old gentleman with history of morbid obesity, COPD, BONY , diastolic heart failure, anemia, hypertension, hypothyrodism, DVT presented with back pain from the DC and found to have hyponatremia with serum Na of 123. 1. Hypervolemic hyponatremia 2. Diastolic CHF with pleural effusions 3. Acute on chronic lower back pain 4. Morbid obesity 5. COPD/BONY 6. Hypotension/shock r/o sepsis Serum na downtrending over the past 24 hours but pt is awake and alert no acute indication for 3% saline is noted Etiology of hypotension unclear but pt is requiring levophed gtt Check CVP with goal 8-10 Continue isotonic saline for now if serum Na continues to down trend while on saline may need to start Tolvaptan Continue BIPAP Trend Na levels Q8-12h Case discussed with the ICU resident Thank you Dennis Aldana DO
[2019-01-16] MEDS: HYDROCORTISONE SOD SUCCINATE 100 MG/2 ML VIAL IVPB SCH ×2 (13:04→17:56)
[2019-01-16] MEDS: FLUDROCORTISONE ACETATE 0.1 MG TABLET (FP) PO SCH (13:06)
--- NOTE | 2019-01-16 13:18 | PN ---
Physical Exam: SUBJECTIVE: Patient seen and examined in icu. on BIPAP, awake and somewhat alert , on Levophed and IV saline, making urine via wilhelm. BP readings have been low. OBJECTIVE: Vital Signs Period Temp Pulse Resp BP Sys/Woodall Pulse Ox Last 24 Hr 97.7 F-98.2 F 97-110 15-20 70-141/33-108 100-100 GENERAL: The patient is awake, alert, on bipap, in no acute distress. NECK: edematous neck. LUNGS: Breath sounds equal, congested, difficult to hear due to body habitus. HEART: Regular rate and rhythm, S1, S2 without murmur, rub or gallop. ABDOMEN: Soft, nontender, globose, non-distended, no guarding, no rebound. EXTREMITIES: edematous b/l. SKIN: dry desquamated. Laboratory Results - last 24 hr 01/15/19 01/15/19 01/16/19 17:18 21:31 06:10 WBC RBC Hgb Hct MCV MCH MCHC RDW Plt Count MPV Sodium 124 L Potassium 3.1 L Chloride 84 L Carbon Dioxide 25 Anion Gap 15 BUN 23.2 H Creatinine 2.5 H Est GFR (CKD-EPI)AfAm 33.92 Est GFR (CKD-EPI)NonAf 29.26 POC Glucometer 120 137 Random Glucose 197 H Calcium 8.3 L Phosphorus 3.0 Magnesium 2.0 Total Bilirubin 0.9 AST 18 ALT 65 H Alkaline Phosphatase 113 Total Protein 5.0 L Albumin 2.3 L 01/16/19 01/16/19 01/16/19 06:10 06:14 12:51 WBC 10.0 RBC 4.49 Hgb 14.6 Hct 42.2 MCV 94.0 MCH 32.6 MCHC 34.7 RDW 14.2 Plt Count 215 MPV 7.3 L Sodium Potassium Chloride Carbon Dioxide Anion Gap BUN Creatinine Est GFR (CKD-EPI)AfAm Est GFR (CKD-EPI)NonAf POC Glucometer 196 186 Random Glucose Calcium Phosphorus Magnesium Total Bilirubin AST ALT Alkaline Phosphatase Total Protein Albumin Active Medications Generic Name Dose Route Start Last Admin Trade Name Freq PRN Reason Stop Dose Admin Acetaminophen 650 mg 01/14/19 14:02 Tylenol - PO Q6H PRN PAIN LEVEL 1-5 Albuterol/Ipratropium 1 amp 01/14/19 16:00 01/16/19 11:40 Duoneb - NEB 1 amp RQID [facility] Administration Atorvastatin Calcium 10 mg 01/14/19 22:00 01/15/19 21:48 Lipitor - PO Not Given HS [facility] Chlorhexidine Gluconate 1 applic 01/14/19 22:00 01/15/19 21:50 Hibiclens For Decolonization - TP 1 applic HS [facility] Administration Dorzolamide HCl 1 drop 01/14/19 22:00 01/16/19 10:12 Trusopt 2% OU 1 drop BID [facility] Administration Fludrocortisone Acetate 0.2 mg 01/16/19 11:15 01/16/19 13:06 Florinef - PO 0.2 mg DAILY [facility] Administration Hydrocortisone Sodium Succinate 100 mg 01/16/19 11:15 01/16/19 13:04 Solu-Cortef - IVPB 100 mg Q8H-IV [facility] Administration Piperacillin Sod/Tazobactam 100 mls @ 200 mls/hr 01/14/19 18:00 01/16/19 10: 13 Sod 4.5 gm/ Sodium Chloride IVPB 200 mls/hr Q8H-IV [facility] Administration Protocol Norepinephrine Bitartrate 8, 500 mls @ 0.11 mls/hr 01/16/19 06:21 01/16/19 10 :18 000 mcg/ Dextrose IV 20 mcg/min TITR [facility] 75 mls/hr Administration Protocol 0.03 MCG/MIN Amino Acids 1,000 mls @ 84 mls/hr 01/16/19 10:00 Clinimix - IV Q12H [facility] Insulin Aspart 1 vial 01/14/19 16:30 01/16/19 12:53 Novolog Vial Sliding Scale - SQ Not Given ACHS [facility] Protocol Insulin Detemir 20 units 01/14/19 22:00 01/15/19 21:48 Levemir Vial SQ Not Given HS [facility] Insulin Detemir 20 units 01/15/19 07:00 01/16/19 06:35 Levemir Vial SQ 20 units AM [facility] Administration Multi-Ingredient Lotion 1 applic 01/14/19 14:02 Eucerin (Large Jar) - TP BID PRN DRY SKIN Mupirocin 1 applic 01/14/19 22:00 01/16/19 10:11 Bactroban Ointment (For Decolonization) - NS 01/19/19 21:59 1 applic BID [facility] Administration Nystatin 500,000 units 01/14/19 18:00 01/16/19 13:04 Nystatin Oral Suspension - PO 500,000 units Q6HPO [facility] Administration Rivaroxaban 20 mg 01/14/19 18:00 01/15/19 17:20 Xarelto PO 20 mg DAILY@1800 [facility] Administration ASSESSMENT/PLAN: Patient is a 48 year old male with past medical history of morbid obesity, OHS, BONY, COPD, diastolic CHF, anemia, history of UGI bleeding, HTN, hyperthyroidism , DVTs, who was initially admitted for acute on chronic diastolic CHF. In 01/14 , patient was found to be hypotensive and lethargic, and was transferred to the ICU. #Neurology Lethargy -more arousable today. -continue to monitor on bipap #Cardiology Hypotension -possible 2/2 increased diuresis, rule out septic shock -blood culture, ua, urine culture, sputum culture ordered -holding off Lasix and Lisinopril -IVF boluses given, and will start patient on IV NS @ 75cc/hr -On Levophed drip. Titrate pressors to maintain MAP >65 -Cardiology consulted. -Nephrology consulted. Acute on Chronic diastolic CHF -holding lasix -last ECHO 01/11: nondiagnostic, limited in quality. nl EF -strict I&O -IVF gentle hydration #ID UTI 2/2 proteus -continue Zosyn 3.375 q8h -Culture reordered today -On 20 Levophed ggt -ID consulted (Dr. Calles). #Pulmonology OHS, COPD -continue duonebs RQID and albuterol PRN -BiPAP at night and PRN during the day -O2 supplementation to keep SpO2 >90% -IV hydrocortisone 100 Q8h, Fludrocortisone PO 0.2 mg #Renal Hypovolemic hyponatremia -IV NS boluses given -will c/w patient on IV NS @75cc/hr, no acute indication for 3% saline is noted , may require tolvaptan if Na persistently hypo. -trend Na q 8-12 hrs -Nephro on board -c/t monitor. asymptomatic MARVA likely pre-renal -hold lasix -IVF hydration -will continue monitor I&O and Cr Hypokalemia -repleted with KCl 10meq x3 #Heme Hx of DVT's -continue xarelto 20mg daily #F/E/N -IV NS @75cc/hr -routine bmp monitoring -NPO while on bipap #Prophylaxis -Xarelto PO 20mg daily #Dispo -ICU for closer monitoring Visit type - Emergency Visit Emergency Visit: Yes ED Registration Date: 01/09/19 Care time: The patient presented to the Emergency Department on the above date and was hospitalized for further evaluation of their emergent condition. - New Patient This patient is new to me today: No - Critical Care Critical Care patient: Yes Total Critical Care Time (in minutes): 40 Critical Care Statement: The care of this patient involved high complexity decision making to prevent further life threatening deterioration of the patient 's condition and/or to evaluate & treat vital organ system(s) failure or risk of failure. - Discharge Referral Referred to [facility] No ATTENDING PHYSICIAN STATEMENT I saw and evaluated the patient. I reviewed the resident's note and discussed the case with the resident. I agree with the resident's findings and plan as documented. SUBJECTIVE: OBJECTIVE: ASSESSMENT AND PLAN:
[2019-01-16] MEDS ORDERED: PT OWN MED DRAWER 7, Y5N ONE (13:32)
[2019-01-16] MEDS: RIVAROXABAN 20 MG TABLET PO SCH (17:56)
[2019-01-16 19:32] LABS: BLOOD UREA NITROGEN 24.3 mg/dL (7-18); CALCIUM 8.3 mg/dL (8.5-10.1); CREATININE 2.7 mg/dL (0.55-1.3); POTASSIUM 3.9 mmol/L (3.5-5.1)
[2019-01-16] MEDS ORDERED: TOLVAPTAN 30 MG TABLET PO SCH ×3 (19:45→19:59)
--- NOTE | 2019-01-16 20:07 | PN ---
Progress Note (short form) - Note Progress Note: Rpt BMP resulted Na 120. Consulted Nephrology on-call -recommended to continue NS but to be careful w/ CVP so pt doesnt become too overloaded -continue to monitor sodium q8h for 24 hours -recommends Tolvaptan 15mg PO -D/C clinimix as this is hypotonic solution approx 4: 30 am pt began having shaking movement on B/L extremity BP: 116/63, HR 116 EKG drawn: alot of artifact CXR ordered stat labs
[2019-01-16] MEDS ORDERED: SODIUM CHLORIDE 1,000 ML IV SCH (20:15)
[2019-01-16] MEDS ORDERED: TOLVAPTAN 15 MG TABLET PO SCH (20:15)
[2019-01-16] MEDS: CHLORHEXIDINE GLUCONATE 4% CLEANSER FOR DECOLONIZATION TP SCH (21:46)
[2019-01-16] MEDS: ATORVASTATIN CA 10 MG TABLET (FP) PO SCH (21:46)
[2019-01-17] MEDS ORDERED: SODIUM CHLORIDE 100 ML IVPB ONE ×4 (00:44→22:15)
[2019-01-17] MEDS ORDERED: PIPERACILLIN/TAZOBACTAM 4.5 GM VIAL IVPB ONE ×4 (00:44→22:15)
[2019-01-17] MEDS: PIPERACILLIN/TAZOB 4.5 GM 4.5 GM in SODIUM CHLORIDE 100 ML IVPB SCH ×3 (01:20→17:45)
[2019-01-17] MEDS: HYDROCORTISONE SOD SUCCINATE 100 MG/2 ML VIAL IVPB SCH ×3 (01:22→17:45)
[2019-01-17 04:53] LABS: HEMOGLOBIN 14.1 GM/dL (11.7-16.9); MCH 31.9 pg (25.7-33.7)
[2019-01-17 04:59] LABS: BASO % 0.1 % (0-2.0); HEMATOCRIT 41.6 % (35.4-49); LYMPH % 2.2 % (8-40); MCHC 33.8 g/dl (32.0-35.9); MEAN CELL VOLUME 94.2 fl (80-96); MEAN PLT VOLUME 7.6 fl (7.5-11.1); MONO % 2.6 % (3.8-10.2); NEUT % 95.1 % (42.8-82.8); PLATELET COUNT 209 K/MM3 (134-434); RBC 4.41 M/mm3 (4.00-5.60); WHITE BLOOD COUNT 11.9 K/mm3 (4.0-10.0)
[2019-01-17 05:23] LABS: BLOOD UREA NITROGEN 26.4 mg/dL (7-18); CALCIUM 8.1 mg/dL (8.5-10.1); CREATININE 2.8 mg/dL (0.55-1.3); MAGNESIUM 1.8 mg/dL (1.8-2.4); PHOSPHOROUS 3.2 mg/dL (2.5-4.9); POTASSIUM 3.4 mmol/L (3.5-5.1)
[2019-01-17] MEDS: NYSTATIN 500,000 UNITS/5 ML SUSPENSION PO SCH ×3 (05:54→17:44)
[2019-01-17 06:12] LABS: PLATELET ESTIMATE ADEQUATE
[2019-01-17] MEDS: INSULIN (LEVEMIR) 100 UNITS/ML UNITS SQ SCH ×2 (06:34→22:25)
[2019-01-17] MEDS: INSULIN SLIDING SCALE (NOVOLOG) 1 VIAL SQ SCH ×4 (06:35→22:24)
[2019-01-17] MEDS: ALBUTEROL SO4 2.5/IPRATROPIUM 0.5 INH SOL 3 ML VIAL.NEB. NEB SCH ×4 (07:35→20:25)
--- NOTE | 2019-01-17 08:10 | PN ---
Progress Note, Physician - Current Medication List Current Medications: Active Medications Acetaminophen (Tylenol -) 650 mg PO Q6H PRN PRN Reason: PAIN LEVEL 1-5 Albuterol/Ipratropium (Duoneb -) 1 amp NEB RQID [facility] Last Admin: 01/16/19 21:15 Dose: 1 amp Atorvastatin Calcium (Lipitor -) 10 mg PO HS [facility] Last Admin: 01/16/19 21:46 Dose: 10 mg Chlorhexidine Gluconate (Hibiclens For Decolonization -) 1 applic TP HS [facility] Last Admin: 01/16/19 21:46 Dose: 1 applic Dorzolamide HCl (Trusopt 2%) 1 drop OU BID [facility] Last Admin: 01/16/19 21:47 Dose: 1 drop Fludrocortisone Acetate (Florinef -) 0.2 mg PO DAILY [facility] Last Admin: 01/16/19 13:06 Dose: 0.2 mg Hydrocortisone Sodium Succinate (Solu-Cortef -) 100 mg IVPB Q8H-IV [facility] Last Admin: 01/17/19 01:22 Dose: 100 mg Piperacillin Sod/Tazobactam (Sod 4.5 gm/ Sodium Chloride) 100 mls @ 200 mls/hr IVPB Q8H-IV [facility]; Protocol Last Admin: 01/17/19 01:20 Dose: 200 mls/hr Norepinephrine Bitartrate 8, (000 mcg/ Dextrose) 500 mls @ 0.11 mls/hr IV TITR [facility]; Protocol Last Admin: 01/16/19 19:07 Dose: 20 mcg/min, 75 mls/hr Potassium Chloride (Potassium Chloride 10 Meq Premix Ivpb -) 10 meq in 100 mls @ 100 mls/hr IVPB Q60M [facility] Stop: 01/17/19 09:59 Insulin Aspart (Novolog Vial Sliding Scale -) 1 vial SQ ACHS [facility]; Protocol Last Admin: 01/17/19 06:35 Dose: Not Given Insulin Detemir (Levemir Vial) 20 units SQ HS [facility] Last Admin: 01/16/19 21:45 Dose: 20 units Insulin Detemir (Levemir Vial) 20 units SQ AM [facility] Last Admin: 01/17/19 06:34 Dose: 20 units Multi-Ingredient Lotion (Eucerin (Large Jar) -) 1 applic TP BID PRN PRN Reason: DRY SKIN Mupirocin (Bactroban Ointment (For Decolonization) -) 1 applic NS BID [facility] Stop: 01/19/19 21:59 Last Admin: 01/16/19 21:46 Dose: 1 applic Nystatin (Nystatin Oral Suspension -) 500,000 units PO Q6HPO [facility] Last Admin: 01/17/19 05:54 Dose: Not Given Rivaroxaban (Xarelto) 20 mg PO DAILY@1800 [facility] Last Admin: 01/16/19 17:56 Dose: 20 mg Tolvaptan (Samsca (Restricted To Nephrology/Cardiology)) 15 mg PO DAILY [facility] - Objective Vital Signs: Vital Signs Temperature 97.6 F 01/17/19 06:00 Pulse Rate 115 H 01/17/19 04:00 Respiratory Rate 18 01/17/19 06:00 Blood Pressure 139/90 01/17/19 06:00 O2 Sat by Pulse Oximetry (%) 100 01/17/19 00:25 Cardiovascular: Yes: S1, S2 Respiratory: Yes: Regular, CTA Bilaterally Gastrointestinal: Yes: Normal Bowel Sounds, Soft. No: Tenderness Labs: CBC, BMP 01/17/19 04:40 01/17/19 04:40 INR, PTT INR 1.69 (0.83-1.09) H 01/09/19 17:55 Assessment/Plan - Problems (1) Acute exacerbation of chronic obstructive pulmonary disease (COPD) Assessment/Plan: -Pulm on board -Bipap -bronchodilators -keep SpO2 >90% Code(s): J44.1 - CHRONIC OBSTRUCTIVE PULMONARY DISEASE W (ACUTE) EXACERBATION (2) DVT of upper extremity (deep vein thrombosis) Assessment/Plan: -Xarelto Code(s): I82.629 - ACUTE EMBOLISM AND THROMBOSIS OF DEEP VN UNSP UP EXTREM (3) Diabetes Assessment/Plan: -BGM ACHS -ISS -Levemir -Endo on board -HgA1c 8.8% Code(s): E11.9 - TYPE 2 DIABETES MELLITUS WITHOUT COMPLICATIONS (4) HLD (hyperlipidemia) Assessment/Plan: -Atorvastatin Code(s): E78.5 - HYPERLIPIDEMIA, UNSPECIFIED (5) Hyperthyroidism Assessment/Plan: -Tapazole Code(s): E05.90 - THYROTOXICOSIS, UNSP WITHOUT THYROTOXIC CRISIS OR STORM (6) Hyponatremia Assessment/Plan: -Na 124 -Renal on board -monior Na level Code(s): E87.1 - HYPO-OSMOLALITY AND HYPONATREMIA (7) Morbid obesity Assessment/Plan: -RD consult Code(s): E66.01 - MORBID (SEVERE) OBESITY DUE TO EXCESS CALORIES (8) Thrush, oral Assessment/Plan: -Nystatin Code(s): B37.0 - CANDIDAL STOMATITIS (9) Thyromegaly ent on board not surgical candidate at this time Code(s): E01.0 - IODINE-DEFICIENCY RELATED DIFFUSE (ENDEMIC) GOITER (10) HTN (hypertension) Assessment/Plan: -Rampiril on hold Code(s): I10 - ESSENTIAL (PRIMARY) HYPERTENSION (11) Pneumonia Assessment/Plan: -Pulm and ID on board -Zosyn -Leukocytosis~WBC 10.8 -LA 7.2, repeat 2.0 -afebrile -CXR shows bibasilar consolidation,/atelectasis and possibly pleural fluid -Urine Legionella neg -Sputum culture pending -repeat CXR reviewed Code(s): J18.9 - PNEUMONIA, UNSPECIFIED ORGANISM (12) Hypotension Assessment/Plan: -Consider a-line -ICU monitoring -Levophed drip -maintain MAP >65 -BP meds on hold -re-consult cardiology Code(s): I95.9 - HYPOTENSION, UNSPECIFIED (13) Hypokalemia Assessment/Plan: -K low--replace -off ivf-on levo -monitor electrolyte and replete as needed Code(s): E87.6 - HYPOKALEMIA
[2019-01-17 08:15] LABS: ARTERIAL BLD GAS O2 SATURATION 97.9 % (95-98); ARTERIAL BLOOD GAS BASE EXCESS -4.4 meq/l (-2-2); ARTERIAL BLOOD GAS PCO2 25.1 mmHg (35-45); ARTERIAL BLOOD GAS pH 7.46 (7.35-7.45)
[2019-01-17 08:19] LABS: ALLENS TEST POSITIVE
[2019-01-17] MEDS: KCL 10 MEQ IVPB 10 MEQ/100 ML INFUS.BAG IVPB SCH (08:39)
[2019-01-17] MEDS ORDERED: NOREPINEPHRINE BITARTRATE 4 MG/4 ML ML IV ONE ×2 (08:50→16:39)
[2019-01-17] MEDS: NOREPINEPHRINE BITARTRATE 8,000 MCG in DEXTROSE 5%-WATER - 492 ML IV SCH (08:52)
[2019-01-17] MEDS: DORZOLAMIDE 2% HCL OPHTHALMIC SOLUTION 10 ML BOTTLE OU SCH ×2 (09:03→22:22)
[2019-01-17] MEDS: FLUDROCORTISONE ACETATE 0.1 MG TABLET (FP) PO SCH (09:04)
[2019-01-17] MEDS: MUPIROCIN 2% TOPICAL OINTMENT FOR DECOLONIZATION NS SCH ×2 (09:04→22:22)
[2019-01-17 09:10] LABS: BLOOD UREA NITROGEN 28.4 mg/dL (7-18); CALCIUM 8.5 mg/dL (8.5-10.1); CREATININE 2.9 mg/dL (0.55-1.3); POTASSIUM 3.9 mmol/L (3.5-5.1)
--- NOTE | 2019-01-17 10:02 | EKG ---
Test Reason : Blood Pressure : / mmHG Vent. Rate : 118 BPM Atrial Rate : 118 BPM P-R Int : 152 ms QRS Dur : 082 ms QT Int : 314 ms P-R-T Axes : 086 142 020 degrees QTc Int : 440 ms POOR DATA QUALITY, INTERPRETATION MAY BE ADVERSELY AFFECTED SINUS TACHYCARDIA LOW VOLTAGE QRS POSSIBLE LATERAL INFARCT , AGE UNDETERMINED CANNOT RULE OUT INFERIOR INFARCT , AGE UNDETERMINED ABNORMAL ECG WHEN COMPARED WITH ECG OF 14-JAN-2019 13:51, PREMATURE VENTRICULAR COMPLEXES ARE NO LONGER PRESENT QRS AXIS SHIFTED RIGHT Confirmed by MD MIKIE, TAVIA ([id number]) on 01/17/2019 10:02:47 AM Referred By: Jensen PAINTING Confirmed By:TAVIA DELUNA MD
--- NOTE | 2019-01-17 11:13 | PN ---
Teaching Attending Note Name of Resident: Andrés Tai ATTENDING PHYSICIAN STATEMENT I saw and evaluated the patient. I reviewed the resident's note and discussed the case with the resident. I agree with the resident's findings and plan as documented. SUBJECTIVE: Pt seen and examined in the ICU. Remains lethargic on BiPAP on levophed gtt. Oliguric. OBJECTIVE: Vital Signs Period Temp Pulse Resp BP Sys/Woodall Pulse Ox Last 24 Hr 97.6 F-98.5 F 91-115 17-24 70-139/49-90 96-100 Intake & Output 01/14/19 01/15/19 01/16/19 01/17/19 23:59 23:59 23:59 23:59 Intake Total 500 1110 3825 1600 Output Total 100 325 200 Balance 400 1110 3500 1400 Weight 152.067 kg 152.271 kg 154.04 kg 157.623 kg Gen: lethargic on BiPAP Heart: RRR Lung: distant breath sounds Abd: soft, obese Ext: no edema CBC, BMP 01/17/19 04:40 01/17/19 08:00 Active Medications Acetaminophen (Tylenol -) 650 mg PO Q6H PRN PRN Reason: PAIN LEVEL 1-5 Albuterol/Ipratropium (Duoneb -) 1 amp NEB RQID [facility] Last Admin: 01/17/19 07:35 Dose: 1 amp Atorvastatin Calcium (Lipitor -) 10 mg PO HS [facility] Last Admin: 01/16/19 21:46 Dose: 10 mg Chlorhexidine Gluconate (Hibiclens For Decolonization -) 1 applic TP HS [facility] Last Admin: 01/16/19 21:46 Dose: 1 applic Dorzolamide HCl (Trusopt 2%) 1 drop OU BID [facility] Last Admin: 01/17/19 09:03 Dose: 1 drop Fludrocortisone Acetate (Florinef -) 0.2 mg PO DAILY [facility] Last Admin: 01/17/19 09:04 Dose: Not Given Hydrocortisone Sodium Succinate (Solu-Cortef -) 100 mg IVPB Q8H-IV [facility] Last Admin: 01/17/19 09:05 Dose: 100 mg Piperacillin Sod/Tazobactam (Sod 4.5 gm/ Sodium Chloride) 100 mls @ 200 mls/hr IVPB Q8H-IV [facility]; Protocol Last Admin: 01/17/19 09:02 Dose: 200 mls/hr Norepinephrine Bitartrate 8, (000 mcg/ Dextrose) 500 mls @ 0.11 mls/hr IV TITR [facility]; Protocol Last Admin: 01/17/19 08:52 Dose: 20 mcg/min, 75 mls/hr Insulin Aspart (Novolog Vial Sliding Scale -) 1 vial SQ ACHS [facility]; Protocol Last Admin: 01/17/19 06:35 Dose: Not Given Insulin Detemir (Levemir Vial) 20 units SQ HS [facility] Last Admin: 01/16/19 21:45 Dose: 20 units Insulin Detemir (Levemir Vial) 20 units SQ AM [facility] Last Admin: 01/17/19 06:34 Dose: 20 units Multi-Ingredient Lotion (Eucerin (Large Jar) -) 1 applic TP BID PRN PRN Reason: DRY SKIN Mupirocin (Bactroban Ointment (For Decolonization) -) 1 applic NS BID [facility] Stop: 01/19/19 21:59 Last Admin: 01/17/19 09:04 Dose: 1 applic Nystatin (Nystatin Oral Suspension -) 500,000 units PO Q6HPO [facility] Last Admin: 01/17/19 05:54 Dose: Not Given Rivaroxaban (Xarelto) 20 mg PO DAILY@1800 [facility] Last Admin: 01/16/19 17:56 Dose: 20 mg Tolvaptan (Samsca (Restricted To Nephrology/Cardiology)) 15 mg PO DAILY [facility] ASSESSMENT AND PLAN: Acute on Chronic Diastolic Heart Failure UTI Shock - ?Septic Acute Kidney Injury Hyponatremia Morbid Obesity Obstructive Sleep Apnea Obesity Hypoventilation Syndrome COPD Anemia h/o DVT HTN - will inset arterial line for better BP monitoring - monitor urine output, creatinine - titrate pressors to maintain MAP >65 - continue stress dose steroids - O2 to keep SpO2 >90% - inhaled bronchodilators - continue antibiotics - f/u pending cultures - BiPAP at night and PRN during day - continue anticoagulation - continue ICU monitoring - prognosis guarded critical care time spent in reviewing chart, evaluating patient and formulating plan 35 min Problem List - Problems (1) Acute on chronic diastolic CHF (congestive heart failure) Code(s): I50.33 - ACUTE ON CHRONIC DIASTOLIC (CONGESTIVE) HEART FAILURE (2) Morbid (severe) obesity due to excess calories Code(s): E66.01 - MORBID (SEVERE) OBESITY DUE TO EXCESS CALORIES
[2019-01-17] MEDS ORDERED: FUROSEMIDE 40 MG/4 ML INJECTABLE VIAL IVPUSH ONE (13:08)
[2019-01-17] MEDS ORDERED: FUROSEMIDE 40 MG/4 ML INJECTABLE VIAL ONE (13:47)
--- NOTE | 2019-01-17 14:43 | PN ---
Progress Note (short form) - Note Progress Note: Renal follow up for hyponatremia Seen and examined in the ICU lethargic on BIPAP remains hypotensive off standing IVF Oligurc overnight Vital Signs Temperature 98.2 F 01/17/19 14:00 Pulse Rate 114 H 01/17/19 14:00 Respiratory Rate 17 01/17/19 14:00 Blood Pressure 89/59 L 01/17/19 14:00 O2 Sat by Pulse Oximetry (%) 97 01/17/19 12:15 Intake & Output 01/14/19 01/15/19 01/16/19 01/17/19 23:59 23:59 23:59 23:59 Intake Total 500 1110 3825 1600 Output Total 100 325 200 Balance 400 1110 3500 1400 Weight 152.067 kg 152.271 kg 154.04 kg 157.623 kg NAD trace LE edema CBC, BMP 01/17/19 04:40 01/17/19 08:00 Current Medications Acetaminophen (Tylenol -) 650 mg PO Q6H PRN PRN Reason: PAIN LEVEL 1-5 Albuterol/Ipratropium (Duoneb -) 1 amp NEB RQID [facility] Last Admin: 01/17/19 11:20 Dose: 1 amp Atorvastatin Calcium (Lipitor -) 10 mg PO HS [facility] Last Admin: 01/16/19 21:46 Dose: 10 mg Chlorhexidine Gluconate (Hibiclens For Decolonization -) 1 applic TP HS [facility] Last Admin: 01/16/19 21:46 Dose: 1 applic Dorzolamide HCl (Trusopt 2%) 1 drop OU BID [facility] Last Admin: 01/17/19 09:03 Dose: 1 drop Fludrocortisone Acetate (Florinef -) 0.2 mg PO DAILY [facility] Last Admin: 01/17/19 09:04 Dose: Not Given Furosemide (Lasix Injection -) 80 mg IVPUSH ONCE ONE Last Admin: 01/17/19 13:55 Dose: 80 mg Hydrocortisone Sodium Succinate (Solu-Cortef -) 100 mg IVPB Q8H-IV [facility] Last Admin: 01/17/19 09:05 Dose: 100 mg Piperacillin Sod/Tazobactam (Sod 4.5 gm/ Sodium Chloride) 100 mls @ 200 mls/hr IVPB Q8H-IV [facility]; Protocol Last Admin: 01/17/19 09:02 Dose: 200 mls/hr Norepinephrine Bitartrate 8, (000 mcg/ Dextrose) 500 mls @ 0.11 mls/hr IV TITR [facility]; Protocol Last Admin: 01/17/19 08:52 Dose: 20 mcg/min, 75 mls/hr Insulin Aspart (Novolog Vial Sliding Scale -) 1 vial SQ ACHS [facility]; Protocol Last Admin: 01/17/19 14:31 Dose: 7 units Insulin Detemir (Levemir Vial) 20 units SQ HS [facility] Last Admin: 01/16/19 21:45 Dose: 20 units Insulin Detemir (Levemir Vial) 20 units SQ AM [facility] Last Admin: 01/17/19 06:34 Dose: 20 units Multi-Ingredient Lotion (Eucerin (Large Jar) -) 1 applic TP BID PRN PRN Reason: DRY SKIN Mupirocin (Bactroban Ointment (For Decolonization) -) 1 applic NS BID [facility] Stop: 01/19/19 21:59 Last Admin: 01/17/19 09:04 Dose: 1 applic Nystatin (Nystatin Oral Suspension -) 500,000 units PO Q6HPO [facility] Last Admin: 01/17/19 12:00 Dose: Not Given Rivaroxaban (Xarelto) 20 mg PO DAILY@1800 [facility] Last Admin: 01/16/19 17:56 Dose: 20 mg Tolvaptan (Samsca (Restricted To Nephrology/Cardiology)) 15 mg PO DAILY [facility] 48 year old gentleman with history of morbid obesity, COPD, BONY , diastolic heart failure, anemia, hypertension, hypothyrodism, DVT presented with back pain from the [place] and found to have hyponatremia with serum Na of 123. 1. Hypervolemic hyponatremia 2. Diastolic CHF with pleural effusions 3. Acute on chronic lower back pain 4. Morbid obesity 5. COPD/BONY 6. Hypotension/shock r/o sepsis 7. Acute renal failure secondary to sepsis Give Lasix 80mg IVP and monitor urine output if no significant response is noted can give addiional 100-120mg of lasix Check CVP with goal 8-10 Hold IVF s/p tolvaptan x 1 but will holld fo rnow Continue BIPAP Trend Na levels Q8-12h Case discussed with the ICU resident Thank you Dennis Aldana DO
--- NOTE | 2019-01-17 14:59 | PN ---
Physical Exam: SUBJECTIVE: Patient seen and examined in ICU. Pt found to be hyponatremic this AM at 120 repeat showing 123. Pt had some ? seizure like activity overnight but not during my assesment this AM. Patient was oriented. An A line was placed on his rt radial. OBJECTIVE: Vital Signs Period Temp Pulse Resp BP Sys/Woodall Pulse Ox Last 24 Hr 97.6 F-98.2 F 91-115 17-24 70-139/49-90 96-100 GENERAL: The patient is awake, on BIPAP. NECK: swollen and edematous due to chronic thyroid mass LUNGS: Breath sounds reduced due to body habitus. HEART: tachycardic, regular rythym. ABDOMEN: Soft, nontender, globose, normoactive bowel sounds, no guarding, no rebound EXTREMITIES: edematous. SKIN: desquamated skin diffusely. Laboratory Results - last 24 hr 01/16/19 01/16/19 01/16/19 17:33 18:15 21:36 WBC RBC Hgb Hct MCV MCH MCHC RDW Plt Count MPV Absolute Neuts (auto) Total Counted Neutrophils % Neutrophils % (Manual) Band Neutrophils % Lymphocytes % Lymphocytes % (Manual) Monocytes % Monocytes % (Manual) Eosinophils % Basophils % Nucleated RBC % Metamyelocytes Platelet Estimate Platelet Comment Anticoagulation Therapy Puncture Site ABG pH ABG pCO2 at Pt Temp ABG pO2 at Pt Temp ABG HCO3 ABG O2 Sat (Measured) ABG O2 Content ABG Base Excess [place]lin Test O2 Delivery Device Oxygen Flow Rate Vent Mode Vent Rate Mechanical Rate Pressure Support Vent Sodium 120 L Potassium 3.9 Chloride 86 L Carbon Dioxide 22 Anion Gap 12 BUN 24.3 H Creatinine 2.7 H Est GFR (CKD-EPI)AfAm 30.91 Est GFR (CKD-EPI)NonAf 26.67 POC Glucometer 211 231 Random Glucose 207 H Serum Osmolality 261 L Lactic Acid Calcium 8.3 L Phosphorus Magnesium 01/17/19 01/17/19 01/17/19 04:34 04:40 04:40 WBC 11.9 H RBC 4.41 Hgb 14.1 Hct 41.6 MCV 94.2 MCH 31.9 MCHC 33.8 RDW 14.0 Plt Count 209 MPV 7.6 Absolute Neuts (auto) 11.4 H Total Counted 100 Neutrophils % 95.1 H Neutrophils % (Manual) 78.0 Band Neutrophils % 11.0 Lymphocytes % 2.2 L D Lymphocytes % (Manual) 3.0 L D Monocytes % 2.6 L Monocytes % (Manual) 5 Eosinophils % 0.0 D Basophils % 0.1 Nucleated RBC % 0 Metamyelocytes 2 D Platelet Estimate Adequate Platelet Comment No clotting detected Anticoagulation Therapy Puncture Site ABG pH ABG pCO2 at Pt Temp ABG pO2 at Pt Temp ABG HCO3 ABG O2 Sat (Measured) ABG O2 Content ABG Base Excess [place]lin Test O2 Delivery Device Oxygen Flow Rate Vent Mode Vent Rate Mechanical Rate Pressure Support Vent Sodium 121 L Potassium 3.4 L Chloride 84 L Carbon Dioxide 21 Anion Gap 16 BUN 26.4 H Creatinine 2.8 H Est GFR (CKD-EPI)AfAm 29.58 Est GFR (CKD-EPI)NonAf 25.52 POC Glucometer 237 Random Glucose 238 H Serum Osmolality Lactic Acid Calcium 8.1 L Phosphorus 3.2 Magnesium 1.8 01/17/19 01/17/19 01/17/19 04:40 06:30 07:55 WBC RBC Hgb Hct MCV MCH MCHC RDW Plt Count MPV Absolute Neuts (auto) Total Counted Neutrophils % Neutrophils % (Manual) Band Neutrophils % Lymphocytes % Lymphocytes % (Manual) Monocytes % Monocytes % (Manual) Eosinophils % Basophils % Nucleated RBC % Metamyelocytes Platelet Estimate Platelet Comment Anticoagulation Therapy No Result Required. Puncture Site Right radial ABG pH 7.46 H ABG pCO2 at Pt Temp 25.1 L ABG pO2 at Pt Temp 96.0 ABG HCO3 17.4 L ABG O2 Sat (Measured) 97.9 ABG O2 Content 20.1 ABG Base Excess -4.4 L Orlin Test Positive O2 Delivery Device Bipap Oxygen Flow Rate 30 Vent Mode No Result Required. Vent Rate No Result Required. Mechanical Rate No Result Required. Pressure Support Vent No Result Required. Sodium Potassium Chloride Carbon Dioxide Anion Gap BUN Creatinine Est GFR (CKD-EPI)AfAm Est GFR (CKD-EPI)NonAf POC Glucometer 225 Random Glucose Serum Osmolality Lactic Acid 2.4 H* Calcium Phosphorus Magnesium 01/17/19 01/17/19 08:00 14:27 WBC RBC Hgb Hct MCV MCH MCHC RDW Plt Count MPV Absolute Neuts (auto) Total Counted Neutrophils % Neutrophils % (Manual) Band Neutrophils % Lymphocytes % Lymphocytes % (Manual) Monocytes % Monocytes % (Manual) Eosinophils % Basophils % Nucleated RBC % Metamyelocytes Platelet Estimate Platelet Comment Anticoagulation Therapy Puncture Site ABG pH ABG pCO2 at Pt Temp ABG pO2 at Pt Temp ABG HCO3 ABG O2 Sat (Measured) ABG O2 Content ABG Base Excess [place]lin Test O2 Delivery Device Oxygen Flow Rate Vent Mode Vent Rate Mechanical Rate Pressure Support Vent Sodium 123 L Potassium 3.9 Chloride 82 L Carbon Dioxide 23 Anion Gap 18 H BUN 28.4 H Creatinine 2.9 H Est GFR (CKD-EPI)AfAm 28.35 Est GFR (CKD-EPI)NonAf 24.46 POC Glucometer 229 Random Glucose 236 H Serum Osmolality Lactic Acid Calcium 8.5 Phosphorus Magnesium Active Medications Generic Name Dose Route Start Last Admin Trade Name Freq PRN Reason Stop Dose Admin Acetaminophen 650 mg 01/14/19 14:02 Tylenol - PO Q6H PRN PAIN LEVEL 1-5 Albuterol/Ipratropium 1 amp 01/14/19 16:00 01/17/19 11:20 Duoneb - NEB 1 amp RQID [facility] Administration Atorvastatin Calcium 10 mg 01/14/19 22:00 01/16/19 21:46 Lipitor - PO 10 mg HS [facility] Administration Chlorhexidine Gluconate 1 applic 01/14/19 22:00 01/16/19 21:46 Hibiclens For Decolonization - TP 1 applic HS [facility] Administration Dorzolamide HCl 1 drop 01/14/19 22:00 01/17/19 09:03 Trusopt 2% OU 1 drop BID [facility] Administration Fludrocortisone Acetate 0.2 mg 01/16/19 11:15 01/17/19 09:04 Florinef - PO Not Given DAILY [facility] Furosemide 80 mg 01/17/19 13:08 01/17/19 13:55 Lasix Injection - IVPUSH 80 mg ONCE ONE Administration Hydrocortisone Sodium Succinate 100 mg 01/16/19 11:15 01/17/19 09:05 Solu-Cortef - IVPB 100 mg Q8H-IV [facility] Administration Piperacillin Sod/Tazobactam 100 mls @ 200 mls/hr 01/14/19 18:00 01/17/19 09: 02 Sod 4.5 gm/ Sodium Chloride IVPB 200 mls/hr Q8H-IV [facility] Administration Protocol Norepinephrine Bitartrate 8, 500 mls @ 0.11 mls/hr 01/16/19 06:21 01/17/19 08 :52 000 mcg/ Dextrose IV 20 mcg/min TITR [facility] 75 mls/hr Administration Protocol 0.03 MCG/MIN Insulin Aspart 1 vial 01/14/19 16:30 01/17/19 14:31 Novolog Vial Sliding Scale - SQ 7 units ACHS [facility] Administration Protocol Insulin Detemir 20 units 01/14/19 22:00 01/16/19 21:45 Levemir Vial SQ 20 units HS [facility] Administration Insulin Detemir 20 units 01/15/19 07:00 01/17/19 06:34 Levemir Vial SQ 20 units AM [facility] Administration Multi-Ingredient Lotion 1 applic 01/14/19 14:02 Eucerin (Large Jar) - TP BID PRN DRY SKIN Mupirocin 1 applic 01/14/19 22:00 01/17/19 09:04 Bactroban Ointment (For Decolonization) - NS 01/19/19 21:59 1 applic BID [facility] Administration Nystatin 500,000 units 01/14/19 18:00 01/17/19 12:00 Nystatin Oral Suspension - PO Not Given Q6HPO [facility] Rivaroxaban 20 mg 01/14/19 18:00 01/16/19 17:56 Xarelto PO 20 mg DAILY@1800 [facility] Administration Tolvaptan 15 mg 01/16/19 19:59 Samsca (Restricted To Nephrology/Cardiology) PO DAILY [facility] ASSESSMENT/PLAN: Patient is a 48 year old male with past medical history of morbid obesity, OHS, BONY, COPD, diastolic CHF, anemia, history of UGI bleeding, HTN, hyperthyroidism , DVTs, who was initially admitted for acute on chronic diastolic CHF. In 01/14 , patient was found to be hypotensive and lethargic, and was transferred to the ICU. #Neurology Lethargy -more arousable today. -continue to monitor on bipap #Cardiology Hypotension -doubt septic shock, likely due to HFpEf given poor study echo showing normal EF. -On Levophed drip 20. Titrate pressors to maintain MAP >65 -Cardiology consulted (Dr. Chowdhury) -Nephrology consulted. - vaso added due to MAP not being maintained per A line reading. Acute on Chronic diastolic CHF -holding lasix -last ECHO 01/11: nondiagnostic, limited in quality. nl EF -strict I&O -IVF gentle hydration #ID UTI 05/21 proteus -continue Zosyn 3.375 q8h -Culture reordered today -On 20 Levophed ggt -ID consulted (Dr. Calles). #Pulmonology OHS, COPD -continue duonebs RQID and albuterol PRN -BiPAP at night and PRN during the day -O2 supplementation to keep SpO2 >90% -IV hydrocortisone 100 Q8h, Fludrocortisone PO 0.2 mg #Renal Hypervolemic hyponatremia - will assess volume status per A line pressure. -fluids being held -no acute indication for 3% saline is noted due to pt's mental status not impaired, continue tolvaptan if Na persistently hypo. - one dose of Lasix 80 IV given. -trend Na q 8-12 hrs -Nephro on board -c/t monitor. asymptomatic MARVA likely pre-renal - 80 lasix given, if Na not improved give 100-120mg of lasix -off standing IVF hydration -will continue monitor I&O and Cr Hypokalemia -repleted with KCl 10meq x2 bags. #Heme Hx of DVT's -continue xarelto 20mg daily #F/E/N -IV NS @75cc/hr -routine bmp monitoring -NPO while on bipap #Prophylaxis -Xarelto PO 20mg daily #Dispo -ICU for closer monitoring Visit type - Emergency Visit Emergency Visit: Yes ED Registration Date: 01/09/19 Care time: The patient presented to the Emergency Department on the above date and was hospitalized for further evaluation of their emergent condition. - New Patient This patient is new to me today: No - Critical Care Critical Care patient: Yes Total Critical Care Time (in minutes): 40 Critical Care Statement: The care of this patient involved high complexity decision making to prevent further life threatening deterioration of the patient 's condition and/or to evaluate & treat vital organ system(s) failure or risk of failure. - Discharge Referral Referred to [facility] Med [facility].C.: No ATTENDING PHYSICIAN STATEMENT I saw and evaluated the patient. I reviewed the resident's note and discussed the case with the resident. I agree with the resident's findings and plan as documented. SUBJECTIVE: OBJECTIVE: ASSESSMENT AND PLAN:
--- NOTE | 2019-01-17 15:02 | PROC ---
<Andrés Tai - Last Filed: 01/17/19 14:59> Procedure Note Procedure: Patient requiring accurate blood pressure monitoring, due to pt's body habitus we were unable to get an accurate BP reading through a sphygmomanometer cuff. The A line was placed under ultrasound guidance using the seldinger technique under sterile conditions. Consent was received verbally by the patient. <Michel Banerjee MD - Last Filed: 01/18/19 11:35> Procedure Note Procedure: I supervised and was present during the entire procedure. Michel Banerjee MD
[2019-01-17] MEDS ORDERED: VASOPRESSIN 50 UNITS in SODIUM CHLORIDE 97.5 ML IVPB SCH (15:15)
[2019-01-17] MEDS ORDERED: VASOPRESSIN 20 UNITS/ML VIAL IV ONE (15:19)
[2019-01-17 15:29] LABS: BLOOD UREA NITROGEN 29.7 mg/dL (7-18); CALCIUM 8.2 mg/dL (8.5-10.1); CREATININE 2.9 mg/dL (0.55-1.3); POTASSIUM 3.9 mmol/L (3.5-5.1)
--- NOTE | 2019-01-17 17:28 | PN ---
Progress Note, Physician Chief Complaint: Pt on Bipap; fatigued, and difficult to arouse. History of Present Illness: 48-year-old black male coming from a intermediate with a past medical history of he morbid obesity, COPD, diastolic CHF, hypertension, hyperlipidemia, hypothyroidism,sleep apnea, and s/p DVT (-->rivaroxaban) who is maintained on 3 L oxygen nasal cannula Medical history significant for acute on chronic respiratory failure with hypoxia and hypercapnia, previous intubations, pneumonia, DVT, glaucoma, hyperlipidemia, hypertension. - Current Medication List Current Medications: Active Medications Acetaminophen (Tylenol -) 650 mg PO Q6H PRN PRN Reason: PAIN LEVEL 1-5 Albuterol/Ipratropium (Duoneb -) 1 amp NEB RQID [facility] Last Admin: 01/17/19 16:29 Dose: 1 amp Atorvastatin Calcium (Lipitor -) 10 mg PO HS [facility] Last Admin: 01/16/19 21:46 Dose: 10 mg Chlorhexidine Gluconate (Hibiclens For Decolonization -) 1 applic TP HS [facility] Last Admin: 01/16/19 21:46 Dose: 1 applic Dorzolamide HCl (Trusopt 2%) 1 drop OU BID [facility] Last Admin: 01/17/19 09:03 Dose: 1 drop Fludrocortisone Acetate (Florinef -) 0.2 mg PO DAILY [facility] Last Admin: 01/17/19 09:04 Dose: Not Given Furosemide (Lasix Injection -) 80 mg IVPUSH ONCE ONE Last Admin: 01/17/19 13:55 Dose: 80 mg Furosemide (Lasix Injection -) 100 mg IVPB ONCE ONE Stop: 01/17/19 18:31 Hydrocortisone Sodium Succinate (Solu-Cortef -) 100 mg IVPB Q8H-IV [facility] Last Admin: 01/17/19 09:05 Dose: 100 mg Piperacillin Sod/Tazobactam (Sod 4.5 gm/ Sodium Chloride) 100 mls @ 200 mls/hr IVPB Q8H-IV [facility]; Protocol Last Admin: 01/17/19 09:02 Dose: 200 mls/hr Norepinephrine Bitartrate 8, (000 mcg/ Dextrose) 500 mls @ 0.11 mls/hr IV TITR [facility]; Protocol Last Admin: 01/17/19 08:52 Dose: 20 mcg/min, 75 mls/hr Vasopressin 50 units/ Sodium (Chloride) 100 mls @ 4 mls/hr IVPB ASDIR [facility]; Protocol Last Admin: 01/17/19 15:40 Dose: 2 units/hr, 4 mls/hr Insulin Aspart (Novolog Vial Sliding Scale -) 1 vial SQ ACHS [facility]; Protocol Last Admin: 01/17/19 14:31 Dose: 7 units Insulin Detemir (Levemir Vial) 20 units SQ HS [facility] Last Admin: 01/16/19 21:45 Dose: 20 units Insulin Detemir (Levemir Vial) 20 units SQ AM [facility] Last Admin: 01/17/19 06:34 Dose: 20 units Multi-Ingredient Lotion (Eucerin (Large Jar) -) 1 applic TP BID PRN PRN Reason: DRY SKIN Mupirocin (Bactroban Ointment (For Decolonization) -) 1 applic NS BID [facility] Stop: 01/19/19 21:59 Last Admin: 01/17/19 09:04 Dose: 1 applic Nystatin (Nystatin Oral Suspension -) 500,000 units PO Q6HPO [facility] Last Admin: 01/17/19 12:00 Dose: Not Given Rivaroxaban (Xarelto) 20 mg PO DAILY@1800 [facility] Last Admin: 01/16/19 17:56 Dose: 20 mg Tolvaptan (Samsca (Restricted To Nephrology/Cardiology)) 15 mg PO DAILY [facility] - Objective Vital Signs: Vital Signs Temperature 98.2 F 01/17/19 14:00 Pulse Rate 110 H 01/17/19 16:00 Respiratory Rate 21 H 01/17/19 16:00 Blood Pressure 106/88 01/17/19 16:00 O2 Sat by Pulse Oximetry (%) 97 01/17/19 12:15 Constitutional: Yes: Obese Eyes: Yes: Conjunctiva Clear Neck: Yes: Decreased ROM Cardiovascular: Yes: S1, S2 Respiratory: Yes: Diminished, On BiPap, Poor Air Entry Genitourinary: Yes: Oliguria Breast(s): Yes: Gynecomastia (excoriations under the breasts, on arms) Musculoskeletal: Yes: Muscle Weakness Extremities: Yes: Cool Edema: Yes Edema: LLE: 1+, RLE: 1+ Peripheral Pulses WNL: No Peripheral Pulses: Left Doralis Pedis: 1+, Right Dorsalis Pedis: 1+ Integumentary: Yes: Skin Tear, Venous Stasis Changes, Other (chronic hyperpigmentation to mid-shins) Neurological: Yes: Weakness Psychiatric: Yes: Other (addiction) Labs: CBC, BMP 01/17/19 04:40 01/17/19 14:00 INR, PTT INR 1.69 (0.83-1.09) H 01/09/19 17:55 Abnormal Lab Results 01/16/19 01/17/19 01/17/19 18:15 04:40 04:40 WBC 11.9 H Absolute Neuts (auto) 11.4 H Neutrophils % 95.1 H Lymphocytes % 2.2 L D Lymphocytes % (Manual) 3.0 L D Monocytes % 2.6 L ABG pH ABG pCO2 at Pt Temp ABG HCO3 ABG Base Excess Sodium 120 L 121 L Potassium 3.4 L Chloride 86 L 84 L Anion Gap BUN 24.3 H 26.4 H Creatinine 2.7 H 2.8 H Random Glucose 207 H 238 H Serum Osmolality 261 L Lactic Acid Calcium 8.3 L 8.1 L Urine Osmolality Ur Random Sodium 01/17/19 01/17/19 01/17/19 04:40 07:55 08:00 WBC Absolute Neuts (auto) Neutrophils % Lymphocytes % Lymphocytes % (Manual) Monocytes % ABG pH 7.46 H ABG pCO2 at Pt Temp 25.1 L ABG HCO3 17.4 L ABG Base Excess -4.4 L Sodium 123 L Potassium Chloride 82 L Anion Gap 18 H BUN 28.4 H Creatinine 2.9 H Random Glucose 236 H Serum Osmolality Lactic Acid 2.4 H* Calcium Urine Osmolality Ur Random Sodium 01/17/19 01/17/19 01/17/19 12:00 14:00 14:00 WBC Absolute Neuts (auto) Neutrophils % Lymphocytes % Lymphocytes % (Manual) Monocytes % ABG pH ABG pCO2 at Pt Temp ABG HCO3 ABG Base Excess Sodium 121 L Potassium Chloride 82 L Anion Gap 17 H BUN 29.7 H Creatinine 2.9 H Random Glucose 222 H Serum Osmolality Lactic Acid Calcium 8.2 L Urine Osmolality 278 L D Ur Random Sodium 11 L - ....Imaging Chest X-ray: Image Reviewed EKG: Image Reviewed Other: Image Reviewed (telemetry: sinus tachycardia) Problem List - Problems (1) Acute exacerbation of chronic obstructive pulmonary disease (COPD) Assessment/Plan: bronchodilators, O2 per care director rn. Code(s): J44.1 - CHRONIC OBSTRUCTIVE PULMONARY DISEASE W (ACUTE) EXACERBATION (2) Hyponatremia Assessment/Plan: Please see under "CHF". Code(s): E87.1 - HYPO-OSMOLALITY AND HYPONATREMIA (3) Lower back pain Code(s): M54.5 - LOW BACK PAIN Qualifiers: Chronicity: acute Back pain laterality: midline Sciatica presence: without sciatica Qualified Code(s): M54.5 - Low back pain (4) Morbid obesity Assessment/Plan: Pt says he has been scheduled for gastric bypass surgery in the past, but, for various reasons, it has not been carried out. Prognosis is poor with dietary modification and dramatic weight loss. Code(s): E66.01 - MORBID (SEVERE) OBESITY DUE TO EXCESS CALORIES (5) Acute on chronic diastolic CHF (congestive heart failure) Assessment/Plan: ECHO: normal LVEF; limited study otherwise (repeat when pt able to help with obtaining windows). Now appears fluid-overloaded. CXR: worsening bilateal pleural effusion. Hypotensive and hyponatremic, with acute renal insufficiency (?ATN)--> discontinuing lisinopril and diuretic, and starting IV norepinephrine. As discussed with branch library clerk, may have trial of IV furosemide. Code(s): I50.33 - ACUTE ON CHRONIC DIASTOLIC (CONGESTIVE) HEART FAILURE (6) Acute on chronic respiratory failure with hypoxia and hypercapnia Assessment/Plan: On Bipap. Now on norepinephrine for hypotension; oliguric, with worsening renal dysfunction and hyponatremia. Code(s): J96.21 - ACUTE AND CHRONIC RESPIRATORY FAILURE WITH HYPOXIA; J96.22 - ACUTE AND CHRONIC RESPIRATORY FAILURE WITH HYPERCAPNIA (7) Bilateral lower extremity edema Code(s): R60.0 - LOCALIZED EDEMA (8) Depression Code(s): F32.9 - MAJOR DEPRESSIVE DISORDER, SINGLE EPISODE, UNSPECIFIED (9) [place] cardiac risk >20% in next 10 years Assessment/Plan: Stress MIBI 12/2016: no ischemia. Keep lipids aggressively controlled with diet, statin. The imperative need to lose weight was discussed again. Pt says he has been planning for years to undergo gastric bypass surgery. Code(s): Z91.89 - OTH PERSONAL RISK FACTORS, NOT ELSEWHERE CLASSIFIED (10) HTN (hypertension) Assessment/Plan: Medications (lisinopril; furosemide) held due to hypotension. Preently on IV norepinephrine. Code(s): I10 - ESSENTIAL (PRIMARY) HYPERTENSION (11) Hx of deep venous thrombosis Code(s): Z86.718 - PERSONAL HISTORY OF OTHER VENOUS THROMBOSIS AND EMBOLISM (12) Hyperlipidemia Assessment/Plan: statin. Code(s): E78.5 - HYPERLIPIDEMIA, UNSPECIFIED (13) Moderate to severe pulmonary hypertension Code(s): I27.2 - OTHER SECONDARY PULMONARY HYPERTENSION * DO NOT USE * (14) Obstructive apnea Assessment/Plan: pressure-support oxygenation per care director rn. Code(s): G47.33 - OBSTRUCTIVE SLEEP APNEA (ADULT) (PEDIATRIC) (15) Diabetes Assessment/Plan: Restart ACEI if BP, eletrolytes stabilize. Code(s): E11.9 - TYPE 2 DIABETES MELLITUS WITHOUT COMPLICATIONS (16) Hyperthyroidism Assessment/Plan: low free T4. F/u with dogger. Code(s): E05.90 - THYROTOXICOSIS, UNSP WITHOUT THYROTOXIC CRISIS OR STORM (17) Shock Assessment/Plan: elecated WBCs since admission. acute renal failure, with hyponatremia, oliguria. Hypotension-->IV norepinephrine. f/u TNI. (BP variable taken peripherally; agree with arterial line). On antibiotics per ID. Code(s): R57.9 - SHOCK, UNSPECIFIED (18) Acute renal insufficiency Assessment/Plan: Cr since admission 0.7-->2.9 (BUN 23-->29.7); oliguric despite IV fluids; worsening hyponatremia. As discussed with branch library clerk, may have trial of IV furosemide. F/u BUn/Cr, Is and Os,, electrolytes. Code(s): N28.9 - DISORDER OF KIDNEY AND URETER, UNSPECIFIED Assessment/Plan CCU time spent: 40 minutes.
[2019-01-17] MEDS: RIVAROXABAN 20 MG TABLET PO SCH (17:45)
[2019-01-17] MEDS ORDERED: FUROSEMIDE 100 MG/10 ML INJECTABLE VIAL IVPB ONE (18:30)
--- NOTE | 2019-01-17 20:30 | PN ---
Progress Note, Physician History of Present Illness: AWAKE, LETHARGIC ON BIPAP BREATHING NON-LABORED HYPOTENSIVE ON PRESSORS AFEBRILE WBC REMAINS SL ELEVATED AZOTEMIA WORSENED - Current Medication List Current Medications: Active Medications Acetaminophen (Tylenol -) 650 mg PO Q6H PRN PRN Reason: PAIN LEVEL 1-5 Albuterol/Ipratropium (Duoneb -) 1 amp NEB RQID [facility] Last Admin: 01/17/19 16:29 Dose: 1 amp Atorvastatin Calcium (Lipitor -) 10 mg PO HS [facility] Last Admin: 01/16/19 21:46 Dose: 10 mg Chlorhexidine Gluconate (Hibiclens For Decolonization -) 1 applic TP HS [facility] Last Admin: 01/16/19 21:46 Dose: 1 applic Dorzolamide HCl (Trusopt 2%) 1 drop OU BID [facility] Last Admin: 01/17/19 09:03 Dose: 1 drop Fludrocortisone Acetate (Florinef -) 0.2 mg PO DAILY [facility] Last Admin: 01/17/19 09:04 Dose: Not Given Furosemide (Lasix Injection -) 80 mg IVPUSH ONCE ONE Last Admin: 01/17/19 13:55 Dose: 80 mg Hydrocortisone Sodium Succinate (Solu-Cortef -) 100 mg IVPB Q8H-IV [facility] Last Admin: 01/17/19 17:45 Dose: 100 mg Piperacillin Sod/Tazobactam (Sod 4.5 gm/ Sodium Chloride) 100 mls @ 200 mls/hr IVPB Q8H-IV [facility]; Protocol Last Admin: 01/17/19 17:45 Dose: 200 mls/hr Norepinephrine Bitartrate 8, (000 mcg/ Dextrose) 500 mls @ 0.11 mls/hr IV TITR [facility]; Protocol Last Admin: 01/17/19 08:52 Dose: 20 mcg/min, 75 mls/hr Vasopressin 50 units/ Sodium (Chloride) 100 mls @ 4 mls/hr IVPB ASDIR [facility]; Protocol Last Admin: 01/17/19 15:40 Dose: 2 units/hr, 4 mls/hr Insulin Aspart (Novolog Vial Sliding Scale -) 1 vial SQ ACHS [facility]; Protocol Last Admin: 01/17/19 18:17 Dose: 5 units Insulin Detemir (Levemir Vial) 20 units SQ HS [facility] Last Admin: 01/16/19 21:45 Dose: 20 units Insulin Detemir (Levemir Vial) 20 units SQ AM [facility] Last Admin: 01/17/19 06:34 Dose: 20 units Multi-Ingredient Lotion (Eucerin (Large Jar) -) 1 applic TP BID PRN PRN Reason: DRY SKIN Mupirocin (Bactroban Ointment (For Decolonization) -) 1 applic NS BID [facility] Stop: 01/19/19 21:59 Last Admin: 01/17/19 09:04 Dose: 1 applic Nystatin (Nystatin Oral Suspension -) 500,000 units PO Q6HPO [facility] Last Admin: 01/17/19 17:44 Dose: 500,000 units Rivaroxaban (Xarelto) 20 mg PO DAILY@1800 [facility] Last Admin: 01/17/19 17:45 Dose: 20 mg Tolvaptan (Samsca (Restricted To Nephrology/Cardiology)) 15 mg PO DAILY [facility] - Objective Vital Signs: Vital Signs Temperature 98.4 F 01/17/19 19:00 Pulse Rate 114 H 01/17/19 19:00 Respiratory Rate 20 01/17/19 19:53 Blood Pressure 105/55 L 01/17/19 19:00 O2 Sat by Pulse Oximetry (%) 97 01/17/19 12:15 Constitutional: Yes: Well Nourished, Obese Cardiovascular: Yes: Regular Rate and Rhythm, S1, S2 Respiratory: Yes: Diminished Gastrointestinal: Yes: Normal Bowel Sounds, Soft Edema: Yes Integumentary: Yes: Venous Stasis Changes Labs: CBC, BMP 01/17/19 04:40 01/17/19 14:00 INR, PTT INR 1.69 (0.83-1.09) H 01/09/19 17:55 Assessment/Plan CHF COPD ? HCAP LEUKOCYTOSIS AZOTEMIA SL WORSENED MORBID OBESITY CONTINUE EMPIRIC ZOSYN
[2019-01-17] MEDS ORDERED: PT OWN MED DRAWER 7, Y5N ONE (22:15)
[2019-01-17] MEDS: ATORVASTATIN CA 10 MG TABLET (FP) PO SCH (22:23)
[2019-01-17] MEDS: CHLORHEXIDINE GLUCONATE 4% CLEANSER FOR DECOLONIZATION TP SCH (22:25)
[2019-01-18] MEDS: NYSTATIN 500,000 UNITS/5 ML SUSPENSION PO SCH ×4 (00:07→17:10)
[2019-01-18] MEDS: HYDROCORTISONE SOD SUCCINATE 100 MG/2 ML VIAL IVPB SCH ×3 (01:11→17:09)
[2019-01-18] MEDS: PIPERACILLIN/TAZOB 4.5 GM 4.5 GM in SODIUM CHLORIDE 100 ML IVPB SCH ×3 (02:09→17:09)
[2019-01-18 04:02] LABS: BLOOD UREA NITROGEN 32.8 mg/dL (7-18); CALCIUM 8.5 mg/dL (8.5-10.1); CREATININE 3.3 mg/dL (0.55-1.3); POTASSIUM 3.7 mmol/L (3.5-5.1)
--- NOTE | 2019-01-18 04:37 | PN ---
Progress Note (short form) - Note Progress Note: Repeat Na returned 117. Lab reviewed. Call placed to nephrology radio personality, awaiting call back. D/w Dr. Perez; will hold vasopressin as may induce free water retention, worsening hyponatremia. Pt without acute mental status changes at this time, will not start hypertonic saline. Has had chronic hyponatremia, > 48h over past wk, gradually worsening. Stat recheck Na ordered for AM. Was diuresed yesterday w/ 80mg, and 100mg lasix IVP respectively.
[2019-01-18] MEDS: NOREPINEPHRINE BITARTRATE 8,000 MCG in DEXTROSE 5%-WATER - 492 ML IV SCH (06:22)
[2019-01-18] MEDS: INSULIN (LEVEMIR) 100 UNITS/ML UNITS SQ SCH ×2 (06:23→21:13)
[2019-01-18] MEDS: INSULIN SLIDING SCALE (NOVOLOG) 1 VIAL SQ SCH ×4 (06:23→21:12)
[2019-01-18 06:28] LABS: BASO % 0.2 % (0-2.0); HEMATOCRIT 38.5 % (35.4-49); HEMOGLOBIN 13.4 GM/dL (11.7-16.9); LYMPH % 2.9 % (8-40); MCH 31.9 pg (25.7-33.7); MCHC 34.8 g/dl (32.0-35.9); MEAN CELL VOLUME 91.8 fl (80-96); MEAN PLT VOLUME 7.5 fl (7.5-11.1); MONO % 4.3 % (3.8-10.2); NEUT % 92.6 % (42.8-82.8); PLATELET COUNT 212 K/MM3 (134-434); RBC 4.19 M/mm3 (4.00-5.60); RDW 14.3 % (11.9-15.9); WHITE BLOOD COUNT 11.2 K/mm3 (4.0-10.0)
[2019-01-18 07:02] LABS: MAGNESIUM 1.6 mg/dL (1.8-2.4); PHOSPHOROUS 3.1 mg/dL (2.5-4.9)
[2019-01-18] MEDS ORDERED: MAGNESIUM SULF 50% (8.12 MEQ/2 ML-1 GM VIAL) IVPB ONE (07:22)
[2019-01-18] MEDS: ALBUTEROL SO4 2.5/IPRATROPIUM 0.5 INH SOL 3 ML VIAL.NEB. NEB SCH ×4 (07:55→21:30)
[2019-01-18] MEDS ORDERED: PT OWN MED DRAWER 7, Y5N ONE (07:57)
[2019-01-18] MEDS ORDERED: PIPERACILLIN/TAZOBACTAM 4.5 GM VIAL IVPB ONE ×3 (07:58→21:05)
[2019-01-18] MEDS ORDERED: SODIUM CHLORIDE 100 ML IVPB ONE ×3 (07:58→21:05)
--- NOTE | 2019-01-18 08:26 | PN ---
Physical Exam: SUBJECTIVE: Patient seen and examined at bedside. pt responds to commands when prompted to open eyes. pt has bipap on and does not answer other questions. OBJECTIVE: Vital Signs Period Temp Pulse Resp BP Sys/Woodall Pulse Ox Last 24 Hr 98 F-98.4 F 99-115 17-23 89-125/49-89 96-97 GENERAL: The patient is awake, alert. on bipap. morbidly obese LUNGS: Breath sounds equal, no wheezes, no crackles. HEART: Regular rate and rhythm, S1, S2 without murmur, rub or gallop. ABDOMEN: Soft, nontender, nondistended, hypoactive bowel sound EXTREMITIES: cold, palpable pulses, dark discoloration of LE b/l SKIN: cold Laboratory Last Values WBC 11.2 K/mm3 (4.0-10.0) H 01/18/19 05:15 RBC 4.19 M/mm3 (4.00-5.60) 01/18/19 05:15 Hgb 13.4 GM/dL (11.7-16.9) 01/18/19 05:15 Hct 38.5 % (35.4-49) 01/18/19 05:15 MCV 91.8 fl (80-96) 01/18/19 05:15 MCH 31.9 pg (25.7-33.7) 01/18/19 05:15 MCHC 34.8 g/dl (32.0-35.9) 01/18/19 05:15 RDW 14.3 % (11.9-15.9) 01/18/19 05:15 Plt Count 212 K/MM3 (134-434) 01/18/19 05:15 MPV 7.5 fl (7.5-11.1) 01/18/19 05:15 Absolute Neuts (auto) 10.4 K/mm3 (1.5-8.0) H 01/18/19 05:15 Total Counted 100 01/17/19 04:40 Neutrophils % 92.6 % (42.8-82.8) H 01/18/19 05:15 Neutrophils % (Manual) 78.0 % (42.8-82.8) 01/17/19 04:40 Band Neutrophils % 11.0 % 01/17/19 04:40 Lymphocytes % 2.9 % (8-40) L D 01/18/19 05:15 Lymphocytes % (Manual) 3.0 % (8-40) L D 01/17/19 04:40 Monocytes % 4.3 % (3.8-10.2) 01/18/19 05:15 Monocytes % (Manual) 5 % (3.8-10.2) 01/17/19 04:40 Eosinophils % 0.0 % (0-4.5) 01/18/19 05:15 Eosinophils % (Manual) 0.0 % (0-4.5) 01/11/19 05:50 Basophils % 0.2 % (0-2.0) 01/18/19 05:15 Basophils % (Manual) 0.0 % (0-2.0) 01/11/19 05:50 Myelocytes % (Man) 0 % (0-2) 01/11/19 05:50 Promyelocytes % (Man) 0 % (0-2) 01/11/19 05:50 Blast Cells % (Manual) 0 % (0-0) 01/11/19 05:50 Nucleated RBC % 0 % (0-0) 01/18/19 05:15 Metamyelocytes 2 % (0-2) D 01/17/19 04:40 Hypochromia 0 01/11/19 05:50 Toxic Granulation 0 01/11/19 05:50 Dohle Bodies 0 01/11/19 05:50 Platelet Estimate Adequate 01/17/19 04:40 Platelet Comment No clumping noted 01/17/19 04:40 Platelet Comment No clotting detected 01/17/19 04:40 Polychromasia 0 01/11/19 05:50 Poikilocytosis 0 01/11/19 05:50 Basophilic Stippling 0 01/11/19 05:50 Anisocytosis 0 01/11/19 05:50 Microcytosis 0 01/11/19 05:50 Macrocytosis 0 01/11/19 05:50 Spherocytes 0 01/11/19 05:50 Sickle Cells 0 01/11/19 05:50 Target Cells 0 01/11/19 05:50 Tear Drop Cells 0 01/11/19 05:50 Ovalocytes 0 01/11/19 05:50 Stomatocytes 0 01/11/19 05:50 Helmet Cells 0 01/11/19 05:50 [place] Bodies 0 01/11/19 05:50 Tichnor Rings 0 01/11/19 05:50 Phan Cells 0 01/11/19 05:50 Acanthocytes (Spur) 0 01/11/19 05:50 Rouleaux 0 01/11/19 05:50 Fragmented RBCs 0 01/11/19 05:50 Schistocytes 0 01/11/19 05:50 PT with INR 20.00 SEC (9.7-13.0) H 01/09/19 17:55 INR 1.69 (0.83-1.09) H 01/09/19 17:55 PTT (Actin FS) 36.0 SECONDS (25.2-36.5) 01/09/19 17:55 Anticoagulation Therapy No Result Required. 01/17/19 07:55 Puncture Site Right radial 01/17/19 07:55 ABG pH 7.46 (7.35-7.45) H 01/17/19 07:55 ABG pCO2 at Pt Temp 25.1 mmHg (35-45) L 01/17/19 07:55 ABG pO2 at Pt Temp 96.0 mmHg (80-100) 01/17/19 07:55 ABG HCO3 17.4 mmol/L (22-27) L 01/17/19 07:55 ABG O2 Sat (Measured) 97.9 % (95-98) 01/17/19 07:55 ABG O2 Content 20.1 % vol 01/17/19 07:55 ABG Base Excess -4.4 meq/l (-2-2) L 01/17/19 07:55 Orlin Test Positive 01/17/19 07:55 Carboxyhemoglobin 0.6 % (0-2) 01/09/19 19:40 Methemoglobin < 1.0 % (0-2) 01/09/19 19:40 O2 Delivery Device Bipap 01/17/19 07:55 Oxygen Flow Rate 30 01/17/19 07:55 Vent Mode No Result Required. 01/17/19 07:55 Vent Rate No Result Required. 01/17/19 07:55 Mechanical Rate No Result Required. 01/17/19 07:55 Pressure Support Vent No Result Required. 01/17/19 07:55 Sodium 117 mmol/L (136-145) L* 01/18/19 03:00 Potassium 3.7 mmol/L (3.5-5.1) 01/18/19 03:00 Chloride 82 mmol/L (98-107) L 01/18/19 03:00 Carbon Dioxide 19 mmol/L (21-32) L 01/18/19 03:00 Anion Gap 16 MMOL/L (8-16) 01/18/19 03:00 BUN 32.8 mg/dL (7-18) H 01/18/19 03:00 Creatinine 3.3 mg/dL (0.55-1.3) H 01/18/19 03:00 Est GFR (CKD-EPI)AfAm 24.25 01/18/19 03:00 Est GFR (CKD-EPI)NonAf 20.92 01/18/19 03:00 POC Glucometer 187 UNITS (80-120) 01/18/19 05:53 Random Glucose 153 mg/dL (74-106) H 01/18/19 03:00 Hemoglobin A1c % 8.8 % (4.2-6.3) H 01/11/19 05:50 Serum Osmolality 261 mosm/kg (278-305) L 01/16/19 18:15 Lactic Acid 2.0 mmol/L (0.4-2.0) 01/17/19 11:20 Uric Acid 6.9 mg/dL (2.6-7.2) 01/09/19 18:05 Calcium 8.5 mg/dL (8.5-10.1) 01/18/19 03:00 Phosphorus 3.1 mg/dL (2.5-4.9) 01/18/19 05:15 Magnesium 1.6 mg/dL (1.8-2.4) L 01/18/19 05:15 Total Bilirubin 0.9 mg/dL (0.2-1) 01/16/19 06:10 AST 18 U/L (15-37) 01/16/19 06:10 ALT 65 U/L (13-61) H 01/16/19 06:10 Alkaline Phosphatase 113 U/L (45-117) 01/16/19 06:10 Creatine Kinase 30 U/L (26-308) 01/09/19 17:55 Troponin I < 0.02 ng/ml (0.00-0.05) 01/09/19 17:55 B-Natriuretic Peptide 105.3 pg/ml (5-125) 01/09/19 17:55 Total Protein 5.0 g/dl (6.4-8.2) L 01/16/19 06:10 Albumin 2.3 g/dl (3.4-5.0) L 01/16/19 06:10 Triglycerides 219 mg/dL (0-150) H 01/14/19 08:56 Cholesterol 245 mg/dL (50-200) H 01/14/19 08:56 Total LDL Cholesterol 160 mg/dL (5-100) H 01/14/19 08:56 HDL Cholesterol 42 mg/dL (40-60) 01/14/19 08:56 Lipase 131 U/L (73-393) 01/10/19 08:21 TSH 1.33 uIU/ml (0.358-3.74) D 01/13/19 10:15 Free T4 0.31 ng/dl (0.76-1.16) L 01/13/19 10:15 Cortisol AM Sample 10.0 ug/dL (6.2-19.4) 01/10/19 08:21 ACTH Cancelled 01/12/19 13:52 Urine Color Dk yellow 01/15/19 10:30 Urine Appearance Turbid 01/15/19 10:30 Urine pH 5.0 (5.0-8.0) D 01/15/19 10:30 Ur Specific [place] 1.027 (1.010-1.035) 01/15/19 10:30 Urine Protein 1+ (NEGATIVE) H 01/15/19 10:30 Urine Glucose (UA) Negative (NEGATIVE) 01/15/19 10:30 Urine Ketones Trace (NEGATIVE) H 01/15/19 10:30 Urine Blood 3+ (NEGATIVE) H 01/15/19 10:30 Urine Nitrite Negative (NEGATIVE) 01/15/19 10:30 Urine Bilirubin Negative (NEGATIVE) 01/15/19 10:30 Urine Urobilinogen 1.0 mg/dL (0.2-1.0) 01/15/19 10:30 Ur Leukocyte Esterase 2+ (NEGATIVE) H 01/15/19 10:30 Urine WBC (Auto) 61 /hpf (0-5) 01/15/19 10:30 Urine RBC (Auto) 40.4 /hpf (0-4) 01/15/19 10:30 Urine Casts (Auto) 20 /lpf (0-8) 01/15/19 10:30 U Pathogenic Cast Auto None seen /lpf (NEGATIVE) 01/15/19 10:30 U Epithel Cells (Auto) 23.5 /HPF (0-5/HPF) 01/15/19 10:30 U Sm Round Cell (Auto) None seen 01/15/19 10:30 Urine Crystals (Auto) Ca oxalate /hpf 01/15/19 10:30 Urine Bacteria (Auto) 2.6 /hpf (NEGATIVE) 01/15/19 10:30 Urine Yeast (Auto) None seen (NEGATIVE) 01/15/19 10:30 Urine Osmolality 278 mosm/kg (300-900) L D 01/17/19 12:00 Ur Random Creatinine 97.1 mg/dL (30-150) 01/17/19 14:00 Ur Random Sodium 11 MMOL/L (40-220) L 01/17/19 14:00 Current Medications Acetaminophen (Tylenol -) 650 mg PO Q6H PRN PRN Reason: PAIN LEVEL 1-5 Albuterol/Ipratropium (Duoneb -) 1 amp NEB RQID [facility] Last Admin: 01/17/19 20:25 Dose: 1 amp Atorvastatin Calcium (Lipitor -) 10 mg PO HS [facility] Last Admin: 01/17/19 22:23 Dose: 10 mg Chlorhexidine Gluconate (Hibiclens For Decolonization -) 1 applic TP HS [facility] Last Admin: 01/17/19 22:25 Dose: 1 applic Dorzolamide HCl (Trusopt 2%) 1 drop OU BID [facility] Last Admin: 01/17/19 22:22 Dose: 1 drop Fludrocortisone Acetate (Florinef -) 0.2 mg PO DAILY [facility] Last Admin: 01/17/19 09:04 Dose: Not Given Furosemide (Lasix Injection -) 80 mg IVPUSH ONCE ONE Last Admin: 01/17/19 13:55 Dose: 80 mg Hydrocortisone Sodium Succinate (Solu-Cortef -) 100 mg IVPB Q8H-IV [facility] Last Admin: 01/18/19 01:11 Dose: 100 mg Piperacillin Sod/Tazobactam (Sod 4.5 gm/ Sodium Chloride) 100 mls @ 200 mls/hr IVPB Q8H-IV [facility]; Protocol Last Admin: 01/18/19 02:09 Dose: 200 mls/hr Norepinephrine Bitartrate 8, (000 mcg/ Dextrose) 500 mls @ 0.11 mls/hr IV TITR [facility]; Protocol Last Admin: 01/18/19 06:22 Dose: 20 mcg/min, 75 mls/hr Insulin Aspart (Novolog Vial Sliding Scale -) 1 vial SQ ACHS [facility]; Protocol Last Admin: 01/18/19 06:23 Dose: 5 units Insulin Detemir (Levemir Vial) 20 units SQ HS [facility] Last Admin: 01/17/19 22:25 Dose: 20 units Insulin Detemir (Levemir Vial) 20 units SQ AM [facility] Last Admin: 01/18/19 06:23 Dose: 20 units Multi-Ingredient Lotion (Eucerin (Large Jar) -) 1 applic TP BID PRN PRN Reason: DRY SKIN Mupirocin (Bactroban Ointment (For Decolonization) -) 1 applic NS BID [facility] Stop: 01/19/19 21:59 Last Admin: 01/17/19 22:22 Dose: 1 applic Nystatin (Nystatin Oral Suspension -) 500,000 units PO Q6HPO [facility] Last Admin: 01/18/19 06:03 Dose: Not Given Rivaroxaban (Xarelto) 20 mg PO DAILY@1800 [facility] Last Admin: 01/17/19 17:45 Dose: 20 mg Tolvaptan (Samsca (Restricted To Nephrology/Cardiology)) 15 mg PO DAILY [facility] ASSESSMENT/PLAN: 48 yo M with PMH of morbid obesity, OHS, BONY, COPD, diastolic CHF, anemia, history of UGI bleeding, HTN, hyperthyroidism, DVTs, who was initially admitted for acute on chronic diastolic CHF. During hospital course( 01/14/19) patient was found hypotensive and lethargic, and was transferred to the ICU. Neurology:Acute toxic metabolic encephalopathy Lethargy -more arousable today Cardiology Hypotension likely 2/2 HFpEF vs septic shock -On Levophed drip 20. Titrate pressors to maintain MAP >65 -Cardiology (Dr. Chowdhury)recs appreciated -Nephrology recs appreciated - vaso d/c 2/2 hyponatremia HFpEF -holding lasix -last ECHO 01/11: nondiagnostic, limited in quality. nl EF. will rpt -strict I&O -IVF gentle hydration ID: Sepsis 2/2 proteus UTI -c/w Zosyn 3.375 q8h -rpt Culture -ID (Dr. Calles)recs appreciated. Pulmonology: OHS, COPD -c/w duonebs RQID and albuterol PRN -BiPAP at night and PRN during the day; SpO2 >90%. currently saturating well on non rebreather -IV hydrocortisone 100 Q8h, Fludrocortisone PO 0.2 mg Renal: Hypervolemic hyponatremia - will assess volume status per A line pressure. -no acute indication for 3% saline is noted due to pt's mental status not impaired, continue tolvaptan if Na persistently hypo. . -trend Na q 8-12 hrs -Nephro recs appreciated -c/t monitor. asymptomatic MARVA -pt oliguric w/ worsening hyponatremia. cannot give 3%saline 2/2 worsening volume status -160 mg lasix, followed by lasix drip -may need to consider dialysis -awaiting renal/ bladder u/s -will continue monitor I&O and Cr Hypokalemia -repleted Heme: Hx of DVT's -continue xarelto 20mg daily Endo: Hypothyroid, DM -low T4, consider repeating TFTs -Endo recs appreciated -thyroid mass, neck u/s as pt does not fit in CT scan. -ENT recs appreciated -patient had head and neck surgery evaluation at [place] (Dr. Joon Waite) in 2016 and thyroidectomy recommended. head and neck re-evaluation appreciated -thyroid enlargement evident on examination, continues to show on imaging studies, per prior records prior biopsies have been negative -c/w levemir 20units bid -c/w ISS and BGM F/E/N -minimize IVF -routine bmp monitoring Prophylaxis -Xarelto PO 20mg daily Dispo -ICU for closer monitoring Visit type - Emergency Visit Emergency Visit: No - New Patient This patient is new to me today: No - Critical Care Critical Care patient: Yes Total Critical Care Time (in minutes): 36 Critical Care Statement: The care of this patient involved high complexity decision making to prevent further life threatening deterioration of the patient 's condition and/or to evaluate & treat vital organ system(s) failure or risk of failure. ATTENDING PHYSICIAN STATEMENT I saw and evaluated the patient. I reviewed the resident's note and discussed the case with the resident. I agree with the resident's findings and plan as documented. SUBJECTIVE: OBJECTIVE: ASSESSMENT AND PLAN:
[2019-01-18] MEDS ORDERED: FUROSEMIDE 100 MG/10 ML INJECTABLE VIAL IVPB ONE ×3 (08:28→16:00)
[2019-01-18 08:40] LABS: BLOOD UREA NITROGEN 34.2 mg/dL (7-18); CALCIUM 8.3 mg/dL (8.5-10.1); CREATININE 3.2 mg/dL (0.55-1.3); POTASSIUM 3.8 mmol/L (3.5-5.1)
--- NOTE | 2019-01-18 08:54 | PN ---
Progress Note, Physician - Current Medication List Current Medications: Active Medications Acetaminophen (Tylenol -) 650 mg PO Q6H PRN PRN Reason: PAIN LEVEL 1-5 Albuterol/Ipratropium (Duoneb -) 1 amp NEB RQID [facility] Last Admin: 01/17/19 20:25 Dose: 1 amp Atorvastatin Calcium (Lipitor -) 10 mg PO HS [facility] Last Admin: 01/17/19 22:23 Dose: 10 mg Chlorhexidine Gluconate (Hibiclens For Decolonization -) 1 applic TP HS [facility] Last Admin: 01/17/19 22:25 Dose: 1 applic Dorzolamide HCl (Trusopt 2%) 1 drop OU BID [facility] Last Admin: 01/17/19 22:22 Dose: 1 drop Fludrocortisone Acetate (Florinef -) 0.2 mg PO DAILY [facility] Last Admin: 01/17/19 09:04 Dose: Not Given Furosemide (Lasix Injection -) 80 mg IVPUSH ONCE ONE Last Admin: 01/17/19 13:55 Dose: 80 mg Hydrocortisone Sodium Succinate (Solu-Cortef -) 100 mg IVPB Q8H-IV [facility] Last Admin: 01/18/19 01:11 Dose: 100 mg Piperacillin Sod/Tazobactam (Sod 4.5 gm/ Sodium Chloride) 100 mls @ 200 mls/hr IVPB Q8H-IV [facility]; Protocol Last Admin: 01/18/19 02:09 Dose: 200 mls/hr Norepinephrine Bitartrate 8, (000 mcg/ Dextrose) 500 mls @ 17.83 mls/hr IV ASDIR [facility]; Protocol Insulin Aspart (Novolog Vial Sliding Scale -) 1 vial SQ ACHS [facility]; Protocol Last Admin: 01/18/19 06:23 Dose: 5 units Insulin Detemir (Levemir Vial) 20 units SQ HS [facility] Last Admin: 01/17/19 22:25 Dose: 20 units Insulin Detemir (Levemir Vial) 20 units SQ AM [facility] Last Admin: 01/18/19 06:23 Dose: 20 units Multi-Ingredient Lotion (Eucerin (Large Jar) -) 1 applic TP BID PRN PRN Reason: DRY SKIN Mupirocin (Bactroban Ointment (For Decolonization) -) 1 applic NS BID [facility] Stop: 01/19/19 21:59 Last Admin: 01/17/19 22:22 Dose: 1 applic Nystatin (Nystatin Oral Suspension -) 500,000 units PO Q6HPO [facility] Last Admin: 01/18/19 06:03 Dose: Not Given Rivaroxaban (Xarelto) 20 mg PO DAILY@1800 [facility] Last Admin: 01/17/19 17:45 Dose: 20 mg - Objective Vital Signs: Vital Signs Temperature 98.2 F 01/18/19 03:00 Pulse Rate 109 H 01/18/19 05:00 Respiratory Rate 20 01/18/19 05:00 Blood Pressure 116/54 L 01/18/19 05:00 O2 Sat by Pulse Oximetry (%) 96 01/18/19 04:00 Cardiovascular: Yes: Tachycardia, S1, S2 Respiratory: Yes: Diminished, On BiPap Gastrointestinal: Yes: Normal Bowel Sounds, Soft, Distention Edema: Yes Integumentary: Yes: Venous Stasis Changes Labs: CBC, BMP 01/18/19 05:15 01/18/19 05:15 INR, PTT INR 1.69 (0.83-1.09) H 01/09/19 17:55 Assessment/Plan - Problems (1) Acute exacerbation of chronic obstructive pulmonary disease (COPD) Assessment/Plan: -Pulm on board -Bipap -bronchodilators -keep SpO2 >90% Code(s): J44.1 - CHRONIC OBSTRUCTIVE PULMONARY DISEASE W (ACUTE) EXACERBATION (2) DVT of upper extremity (deep vein thrombosis) Assessment/Plan: -Xarelto Code(s): I82.629 - ACUTE EMBOLISM AND THROMBOSIS OF DEEP VN UNSP UP EXTREM (3) Diabetes Assessment/Plan: -BGM ACHS -ISS -Endo on board -HgA1c 8.8% Code(s): E11.9 - TYPE 2 DIABETES MELLITUS WITHOUT COMPLICATIONS (4) HLD (hyperlipidemia) Assessment/Plan: -Atorvastatin Code(s): E78.5 - HYPERLIPIDEMIA, UNSPECIFIED (5) Hyperthyroidism Assessment/Plan: -Tapazole Code(s): E05.90 - THYROTOXICOSIS, UNSP WITHOUT THYROTOXIC CRISIS OR STORM (6) Hyponatremia Assessment/Plan: -Na 117 -lasix 120 -Renal on board -monior Na level Code(s): E87.1 - HYPO-OSMOLALITY AND HYPONATREMIA (7) Morbid obesity Assessment/Plan: -RD consult Code(s): E66.01 - MORBID (SEVERE) OBESITY DUE TO EXCESS CALORIES (8) Thrush, oral Assessment/Plan: Code(s): B37.0 - CANDIDAL STOMATITIS (9) Thyromegaly ent on board not surgical candidate at this time Code(s): E01.0 - IODINE-DEFICIENCY RELATED DIFFUSE (ENDEMIC) GOITER (10) HTN (hypertension) Assessment/Plan: -Rampiril on hold Code(s): I10 - ESSENTIAL (PRIMARY) HYPERTENSION (11) Pneumonia Assessment/Plan: -Pulm and ID on board -Zosyn -Leukocytosis~WBC 10.8 -LA 7.2, repeat 2.0 -afebrile -CXR shows bibasilar consolidation,/atelectasis and possibly pleural fluid Microbiology 01/16/19 13:30 Blood - Central Line Blood Culture - Preliminary NO GROWTH OBTAINED AFTER 24 HOURS, INCUBATION TO CONTINUE FOR 4 DAYS. 01/16/19 13:39 Blood - Peripheral Venous Blood Culture - Preliminary NO GROWTH OBTAINED AFTER 24 HOURS, INCUBATION TO CONTINUE FOR 4 DAYS. 01/15/19 10:30 Urine - Urine Aguilera Urine Culture - Final NO GROWTH OBTAINED 01/09/19 23:02 Urine - Urine Clean Catch Urine Culture - Final Proteus Mirabilis 01/10/19 17:17 Urine For Antigen Detection Legionella Antigen - Final 01/10/19 17:17 Urine For Antigen Detection Streptococcus pneumoniae Antigen (M - Final -repeat CXR reviewed Code(s): J18.9 - PNEUMONIA, UNSPECIFIED ORGANISM (12) Hypotension Assessment/Plan: -Add albumin priro to lasix -TPN vs NGT -ICU monitoring -Levophed drip -maintain MAP >65 -BP meds on hold -NL LV Function Code(s): I95.9 - HYPOTENSION, UNSPECIFIED (13) Hypokalemia Assessment/Plan: -K low--replace -off ivf-on levo -monitor electrolyte and replete as needed Code(s): E87.6 - HYPOKALEMIA
[2019-01-18] MEDS ORDERED: NOREPINEPHRINE BITARTRATE 8,000 MCG in DEXTROSE 5%-WATER - 492 ML IV SCH (09:00)
[2019-01-18] MEDS: FLUDROCORTISONE ACETATE 0.1 MG TABLET (FP) PO SCH (09:49)
[2019-01-18] MEDS: DORZOLAMIDE 2% HCL OPHTHALMIC SOLUTION 10 ML BOTTLE OU SCH ×2 (09:51→21:12)
[2019-01-18] MEDS: MUPIROCIN 2% TOPICAL OINTMENT FOR DECOLONIZATION NS SCH ×2 (09:51→21:12)
[2019-01-18] MEDS ORDERED: FUROSEMIDE 40 MG/4 ML INJECTABLE VIAL IVPUSH ONE (10:00)
[2019-01-18] MEDS ORDERED: ALBUMIN HUMAN 25% 12.5 GM/50 ML VIAL IVPB SCH (10:00)
[2019-01-18 10:29] LABS: ANISOCYTOSIS 0; MACROCYTOSIS 0; PLATELET ESTIMATE NORMAL
[2019-01-18] MEDS: NOREPINEPHRINE BITARTRATE 8,000 MCG in SODIUM CHLORIDE 492 ML IV SCH (11:16)
--- NOTE | 2019-01-18 11:19 | PN ---
Progress Note (short form) - Note Progress Note: Renal follow up for hyponatremia Seen and examined in the ICU lethargic, confused remains on Levophed Urine output remains poor on 100% NRB mask Vital Signs Temperature 98.2 F 01/18/19 03:00 Pulse Rate 109 H 01/18/19 05:00 Respiratory Rate 20 01/18/19 05:00 Blood Pressure 116/54 L 01/18/19 05:00 O2 Sat by Pulse Oximetry (%) 96 01/18/19 04:00 Intake & Output 01/15/19 01/16/19 01/17/19 01/18/19 23:59 23:59 23:59 23:59 Intake Total 1110 3825 3924 1940 Output Total 325 400 150 Balance 1110 3500 3524 1790 Weight 152.271 kg 154.04 kg 157.623 kg 158.559 kg NAD trace LE edema CBC, BMP 01/18/19 05:15 01/18/19 05:15 Current Medications Acetaminophen (Tylenol -) 650 mg PO Q6H PRN PRN Reason: PAIN LEVEL 1-5 Albumin Human (Albumin Human 25%) 12.5 gm IVPB BID [facility] Stop: 01/19/19 22:01 Albuterol/Ipratropium (Duoneb -) 1 amp NEB RQID [facility] Last Admin: 01/17/19 20:25 Dose: 1 amp Atorvastatin Calcium (Lipitor -) 10 mg PO HS [facility] Last Admin: 01/17/19 22:23 Dose: 10 mg Chlorhexidine Gluconate (Hibiclens For Decolonization -) 1 applic TP HS [facility] Last Admin: 01/17/19 22:25 Dose: 1 applic Dorzolamide HCl (Trusopt 2%) 1 drop OU BID [facility] Last Admin: 01/18/19 09:51 Dose: 1 drop Fludrocortisone Acetate (Florinef -) 0.2 mg PO DAILY [facility] Last Admin: 01/18/19 09:49 Dose: 0.2 mg Hydrocortisone Sodium Succinate (Solu-Cortef -) 100 mg IVPB Q8H-IV [facility] Last Admin: 01/18/19 09:49 Dose: 100 mg Piperacillin Sod/Tazobactam (Sod 4.5 gm/ Sodium Chloride) 100 mls @ 200 mls/hr IVPB Q8H-IV [facility]; Protocol Last Admin: 01/18/19 09:49 Dose: 200 mls/hr Norepinephrine Bitartrate 8, (000 mcg/ Sodium Chloride) 500 mls @ 17.83 mls/hr IV ASDIR [facility]; Protocol Insulin Aspart (Novolog Vial Sliding Scale -) 1 vial SQ ACHS [facility]; Protocol Last Admin: 01/18/19 06:23 Dose: 5 units Insulin Detemir (Levemir Vial) 20 units SQ HS [facility] Last Admin: 01/17/19 22:25 Dose: 20 units Insulin Detemir (Levemir Vial) 20 units SQ AM [facility] Last Admin: 01/18/19 06:23 Dose: 20 units Multi-Ingredient Lotion (Eucerin (Large Jar) -) 1 applic TP BID PRN PRN Reason: DRY SKIN Mupirocin (Bactroban Ointment (For Decolonization) -) 1 applic NS BID [facility] Stop: 01/19/19 21:59 Last Admin: 01/18/19 09:51 Dose: 1 applic Nystatin (Nystatin Oral Suspension -) 500,000 units PO Q6HPO [facility] Last Admin: 01/18/19 06:03 Dose: Not Given Rivaroxaban (Xarelto) 20 mg PO DAILY@1800 [facility] Last Admin: 01/17/19 17:45 Dose: 20 mg 48 year old gentleman with history of morbid obesity, COPD, BONY , diastolic heart failure, anemia, hypertension, hypothyrodism, DVT presented with back pain from the [place] and found to have hyponatremia with serum Na of 123. 1. Hypervolemic hyponatremia 2. Diastolic CHF with pleural effusions 3. Acute on chronic lower back pain 4. Morbid obesity 5. COPD/BONY 6. Hypotension/shock r/o sepsis 7. Acute renal failure secondary to sepsis Remains oliguric with worsening hyponatremia in setting of fluid overload pt with poor response to Lasix IVPB yesterday, to get 120mg this am and addtional dose this afternoon with plan to maintain on lasix gtt serum Na is < 120 but cannot give hypertonic saline as it will worsen volume status if pt does not respond to IV diuretics will need UF/HD maintain MAP > 65 minimize IVF infusions Supplemental O2 as needed ICU monitoring prognosis is poor discussed with the ICU team Thank you Dennis Aldana DO
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
[2019-01-18] MEDS ORDERED: FUROSEMIDE INJECTION 100 MG in SODIUM CHLORIDE 40 ML IVPB SCH (11:30)
--- NOTE | 2019-01-18 11:48 | PN ---
Teaching Attending Note Name of Resident: Bernie Randall ATTENDING PHYSICIAN STATEMENT I saw and evaluated the patient. I reviewed the resident's note and discussed the case with the resident. I agree with the resident's findings and plan as documented. SUBJECTIVE: Pt seen and examined in the ICU. Hyponatremia worsening, pt oliguric. Remains on levophed gtt. OBJECTIVE: Vital Signs Period Temp Pulse Resp BP Sys/[place] Pulse Ox Last 24 Hr 98.2 F-98.4 F 99-115 17-23 89-125/54-89 96-100 Intake & Output 01/15/19 01/16/19 01/17/19 01/18/19 23:59 23:59 23:59 23:59 Intake Total 1110 3825 3924 1940 Output Total 325 400 150 Balance 1110 3500 3524 1790 Weight 152.271 kg 154.04 kg 157.623 kg 158.559 kg Gen: lethargic, mildly tachypneic Heart: tachycardic, regular Lung: distant breath sounds Abd: soft, nontender Ext: + edema CBC, BMP 01/18/19 05:15 01/18/19 05:15 Active Medications Acetaminophen (Tylenol -) 650 mg PO Q6H PRN PRN Reason: PAIN LEVEL 1-5 Albumin Human (Albumin Human 25%) 12.5 gm IVPB BID [facility] Stop: 01/19/19 22:01 Last Admin: 01/18/19 11:08 Dose: 12.5 gm Albuterol/Ipratropium (Duoneb -) 1 amp NEB RQID [facility] Last Admin: 01/18/19 11:20 Dose: 1 amp Atorvastatin Calcium (Lipitor -) 10 mg PO [facility] Last Admin: 01/17/19 22:23 Dose: 10 mg Chlorhexidine Gluconate (Hibiclens For Decolonization -) 1 applic TP [facility] Last Admin: 01/17/19 22:25 Dose: 1 applic Dorzolamide HCl (Trusopt 2%) 1 drop OU BID [facility] Last Admin: 01/18/19 09:51 Dose: 1 drop Fludrocortisone Acetate (Florinef -) 0.2 mg PO DAILY [facility] Last Admin: 01/18/19 09:49 Dose: 0.2 mg Furosemide (Lasix Injection -) 160 mg IVPB ONCE ONE Stop: 10/02/19 16:01 Hydrocortisone Sodium Succinate (Solu-Cortef -) 100 mg IVPB Q8H-IV [facility] Last Admin: 01/18/19 09:49 Dose: 100 mg Piperacillin Sod/Tazobactam (Sod 4.5 gm/ Sodium Chloride) 100 mls @ 200 mls/hr IVPB Q8H-IV [facility]; Protocol Last Admin: 01/18/19 09:49 Dose: 200 mls/hr Norepinephrine Bitartrate 8, (000 mcg/ Sodium Chloride) 500 mls @ 17.83 mls/hr IV ASDIR [facility]; Protocol Last Admin: 01/18/19 11:16 Dose: 0.15 mcg/kg/min, 93 mls/hr Furosemide 100 mg/ Sodium (Chloride) 50 mls @ 2.5 mls/hr IVPB TITR [facility]; Protocol Insulin Aspart (Novolog Vial Sliding Scale -) 1 vial SQ ACHS [facility]; Protocol Last Admin: 01/18/19 06:23 Dose: 5 units Insulin Detemir (Levemir Vial) 20 units SQ HS [facility] Last Admin: 01/17/19 22:25 Dose: 20 units Insulin Detemir (Levemir Vial) 20 units SQ AM [facility] Last Admin: 01/18/19 06:23 Dose: 20 units Multi-Ingredient Lotion (Eucerin (Large Jar) -) 1 applic TP BID PRN PRN Reason: DRY SKIN Mupirocin (Bactroban Ointment (For Decolonization) -) 1 applic NS BID [facility] Stop: 01/19/19 21:59 Last Admin: 01/18/19 09:51 Dose: 1 applic Nystatin (Nystatin Oral Suspension -) 500,000 units PO Q6HPO [facility] Last Admin: 01/18/19 06:03 Dose: Not Given ASSESSMENT AND PLAN: Acute on Chronic Diastolic Heart Failure UTI Shock of unclear etiology Acute Kidney Injury Hyponatremia Morbid Obesity Obstructive Sleep Apnea Obesity Hypoventilation Syndrome COPD Anemia h/o DVT HTN - IV lasix per renal - monitor urine output, creatinine - if urine output remains poor, will need ultrafiltration - titrate pressors to maintain MAP >65 - continue stress dose steroids - O2 to keep SpO2 >90% - inhaled bronchodilators - CT neck/chest - continue antibiotics - f/u pending cultures - BiPAP at night and PRN during day - continue anticoagulation - continue ICU monitoring - prognosis guarded critical care time spent in reviewing chart, evaluating patient and formulating plan 35 min Problem List - Problems (1) Acute on chronic diastolic CHF (congestive heart failure) Code(s): I50.33 - ACUTE ON CHRONIC DIASTOLIC (CONGESTIVE) HEART FAILURE (2) Morbid (severe) obesity due to excess calories Code(s): E66.01 - MORBID (SEVERE) OBESITY DUE TO EXCESS CALORIES
[2019-01-18 12:02] LABS: ARTERIAL BLOOD GAS PCO2 28.6 mmHg (35-45); ARTERIAL BLOOD GAS PO2 249 mmHg (80-100); ARTERIAL BLOOD GAS pH 7.45 (7.35-7.45)
[2019-01-18 12:03] LABS: ARTERIAL BLD GAS O2 SATURATION 99.2 % (95-98); ARTERIAL BLOOD GAS BASE EXCESS -2.3 meq/l (-2-2)
[2019-01-18 12:06] LABS: ALBUMIN 1.9 g/dl (3.4-5.0); BILIRUBIN,DIRECT 0.4 mg/dL (0.0-0.2); BILIRUBIN,TOTAL 0.7 mg/dL (0.2-1); TOT PROT 4.7 g/dl (6.4-8.2)
[2019-01-18] MEDS: ALBUMIN HUMAN 25% 12.5 GM/50 ML VIAL IVPB SCH ×2 (12:33→14:40)
[2019-01-18 15:23] LABS: BLOOD UREA NITROGEN 37.4 mg/dL (7-18); CALCIUM 8.3 mg/dL (8.5-10.1); CREATININE 3.4 mg/dL (0.55-1.3); POTASSIUM 3.4 mmol/L (3.5-5.1)
--- NOTE | 2019-01-18 16:17 | ECHO ---
Name: JAY ALBERTO, Exam:Adult Echocardiogram Study Date: 01/18/2019 02:52 PM Age: 48 yrs Reason For Study: HF EXACERBATION Height: 67 in Weight: 349 lb BSA: 2.6 m2 MMode/2D Measurements & Calculations IVSd: 1.3 cm Ao root diam: 3.2 cm LVIDd: 3.1 cm LA dimension: 2.1 cm LVIDs: 2.3 cm LVPWd: 1.1 cm LVPWs: 1.2 cm EDV(Teich): 36.7 ml ESV(Teich): 17.3 ml LVOT diam: 2.3 cm Doppler Measurements & Calculations LV V1 max P.4 mmHg PA V2 max: 84.8 cm/sec LV V1 max: 77.5 cm/sec PA max P.9 mmHg Procedure There was technical limitations during this study due to patients body habitas. The study was technic ally difficult with many images being suboptimal in quality. Left Ventricle The left ventricular size, thickness and function are normal. The left ventricular ejection fraction is normal. Regional wall motion abnormalities cannot be excluded due to limited visualization. Right Ventricle The right ventricle is not well visualized. Atria Normal left and right atrial size and function. Mitral Valve The mitral valve is not well visualized. Tricuspid Valve The tricuspid valve is not well visualized. Aortic Valve The aortic valve is not well visualized. Pulmonic Valve The pulmonic valve is not well visualized. Interpretation Summary There was technical limitations during this study due to patients body habitas. The study was technically difficult with many images being suboptimal in quality. The left ventricular size, thickness and function are normal The left ventricular ejection fraction is normal. Regional wall motion abnormalities cannot be excluded due to limited visualization. The tricuspid valve is not well visualized. The aortic valve is not well visualized. The pulmonic valve is not well visualized. MD Michael Schmidt 01/18/2019 04:16 PM
[2019-01-18] MEDS: FUROSEMIDE INJECTION 100 MG in SODIUM CHLORIDE 40 ML IVPB SCH (17:10)
[2019-01-18 20:34] LABS: BLOOD UREA NITROGEN 38.6 mg/dL (7-18); CALCIUM 8.1 mg/dL (8.5-10.1); CREATININE 3.5 mg/dL (0.55-1.3); POTASSIUM 3.3 mmol/L (3.5-5.1)
[2019-01-18] MEDS: ATORVASTATIN CA 10 MG TABLET (FP) PO SCH (21:11)
[2019-01-18] MEDS: CHLORHEXIDINE GLUCONATE 4% CLEANSER FOR DECOLONIZATION TP SCH (21:13)
--- NOTE | 2019-01-18 23:07 | PN ---
Progress Note, Physician Chief Complaint: dyspneic in bed - Current Medication List Current Medications: Active Medications Acetaminophen (Tylenol -) 650 mg PO Q6H PRN PRN Reason: PAIN LEVEL 1-5 Albuterol/Ipratropium (Duoneb -) 1 amp NEB RQID REPLACED BY [facility] Last Admin: 01/18/19 21:30 Dose: 1 amp Atorvastatin Calcium (Lipitor -) 10 mg PO HS REPLACED BY [facility] Last Admin: 01/18/19 21:11 Dose: 10 mg Chlorhexidine Gluconate (Hibiclens For Decolonization -) 1 applic TP HS REPLACED BY [facility] Last Admin: 01/18/19 21:13 Dose: 1 applic Dorzolamide HCl (Trusopt 2%) 1 drop OU BID [facility] Last Admin: 01/18/19 21:12 Dose: 1 drop Fludrocortisone Acetate (Florinef -) 0.2 mg PO DAILY REPLACED BY [facility] Last Admin: 01/18/19 09:49 Dose: 0.2 mg Hydrocortisone Sodium Succinate (Solu-Cortef -) 100 mg IVPB Q8H-IV [facility] Last Admin: 01/18/19 17:09 Dose: 100 mg Piperacillin Sod/Tazobactam (Sod 4.5 gm/ Sodium Chloride) 100 mls @ 200 mls/hr IVPB Q8H-IV [facility]; Protocol Last Admin: 01/18/19 17:09 Dose: 200 mls/hr Norepinephrine Bitartrate 8, (000 mcg/ Sodium Chloride) 500 mls @ 17.83 mls/hr IV ASDIR REPLACED BY [facility]; Protocol Last Titration: 01/18/19 21:51 Dose: 0.09 mcg/kg/min, 56 mls/hr Furosemide 100 mg/ Sodium (Chloride) 50 mls @ 2.5 mls/hr IVPB TITR [facility]; Protocol Last Admin: 01/18/19 17:10 Dose: 5 mg/hr, 2.5 mls/hr Insulin Aspart (Novolog Vial Sliding Scale -) 1 vial SQ ACHS REPLACED BY [facility]; Protocol Last Admin: 01/18/19 21:12 Dose: Not Given Insulin Detemir (Levemir Vial) 20 units SQ HS REPLACED BY [facility] Last Admin: 01/18/19 21:13 Dose: 20 units Insulin Detemir (Levemir Vial) 20 units SQ AM REPLACED BY [facility] Last Admin: 01/18/19 06:23 Dose: 20 units Multi-Ingredient Lotion (Eucerin (Large Jar) -) 1 applic TP BID PRN PRN Reason: DRY SKIN Mupirocin (Bactroban Ointment (For Decolonization) -) 1 applic NS BID REPLACED BY [facility] Stop: 01/19/19 21:59 Last Admin: 01/18/19 21:12 Dose: 1 applic Nystatin (Nystatin Oral Suspension -) 500,000 units PO Q6HPO REPLACED BY [facility] Last Admin: 01/18/19 17:10 Dose: Not Given - Objective Vital Signs: Vital Signs Temperature 98.3 F 01/18/19 20:00 Pulse Rate 116 H 01/18/19 21:55 Respiratory Rate 19 01/18/19 21:55 Blood Pressure 150/85 01/18/19 21:55 O2 Sat by Pulse Oximetry (%) 100 01/18/19 19:41 Constitutional: Yes: Anxious Eyes: Yes: EOM Intact HENT: Yes: Normocephalic, Hoarseness, Pharyngeal Erythema, Thrush Neck: Yes: Decreased ROM Cardiovascular: Yes: Tachycardia, Pulse Irregular Respiratory: Yes: On BiPap, Orthopnea, Poor Air Entry, Rhonchi, SOB Gastrointestinal: Yes: Abdomen, Obese ...Rectal Exam: Yes: Deferred Breast(s): Yes: WNL Musculoskeletal: Yes: Muscle Weakness Edema: LUE: 2+, RUE: 2+, LLE: 3+, RLE: 3+ Neurological: Yes: Alert, Oriented Labs: CBC, BMP 01/18/19 05:15 01/18/19 20:00 INR, PTT INR 1.69 (0.83-1.09) H 01/09/19 17:55 Problem List - Problems (1) Acute exacerbation of chronic obstructive pulmonary disease (COPD) Code(s): J44.1 - CHRONIC OBSTRUCTIVE PULMONARY DISEASE W (ACUTE) EXACERBATION (2) DVT (deep venous thrombosis) Code(s): I82.409 - ACUTE EMBOLISM AND THOMBOS UNSP DEEP VN UNSP LOWER EXTREMITY (3) Lower back pain Code(s): M54.5 - LOW BACK PAIN Qualifiers: Chronicity: acute Back pain laterality: midline Sciatica presence: without sciatica Qualified Code(s): M54.5 - Low back pain (4) Morbid obesity Code(s): E66.01 - MORBID (SEVERE) OBESITY DUE TO EXCESS CALORIES Assessment/Plan Current Active Problems Acute exacerbation of chronic obstructive pulmonary disease (COPD) (Acute) Acute renal insufficiency (Acute) Anemia (Acute) DVT (deep venous thrombosis) (Acute) DVT of upper extremity (deep vein thrombosis) (Acute) Diabetes (Acute) HLD (hyperlipidemia) (Acute) Hearing loss (Acute) Hyperglycemia (Acute) Hyperthyroidism (Acute) Hypokalemia (Acute) Hyponatremia (Acute) Hypotension (Acute) Lower back pain (Acute) Morbid obesity (Acute) Poor perfusion of leg (Acute) Rhinitis (Acute) Right leg pain (Acute) Shock (Acute) Tachycardia (Acute) Thrush, oral (Acute) Thyromegaly (Acute) Thyromegaly (Acute) Upper leg DVT (deep venous thromboembolism), chronic (Acute) Abnormal Lab Results 01/18/19 01/18/19 01/18/19 03:00 05:15 05:15 WBC 11.2 H Absolute Neuts (auto) 10.4 H Neutrophils % 92.6 H Lymphocytes % 2.9 L D Lymphocytes % (Manual) 3.0 L ABG pCO2 at Pt Temp ABG pO2 at Pt Temp ABG HCO3 ABG O2 Sat (Measured) ABG Base Excess Sodium 117 L* 118 L* Potassium Chloride 82 L 82 L Carbon Dioxide 19 L 20 L Anion Gap BUN 32.8 H 34.2 H Creatinine 3.3 H 3.2 H Random Glucose 153 H 166 H Calcium 8.3 L Magnesium 1.6 L Direct Bilirubin 0.4 H ALT 71 H Alkaline Phosphatase 121 H Total Protein 4.7 L Albumin 1.9 L 01/18/19 01/18/19 01/18/19 11:35 13:30 20:00 WBC Absolute Neuts (auto) Neutrophils % Lymphocytes % Lymphocytes % (Manual) ABG pCO2 at Pt Temp 28.6 L ABG pO2 at Pt Temp 249 H ABG HCO3 20.0 L ABG O2 Sat (Measured) 99.2 H ABG Base Excess -2.3 L Sodium 120 L 119 L Potassium 3.4 L 3.3 L Chloride 82 L 84 L Carbon Dioxide Anion Gap 17 H BUN 37.4 H 38.6 H Creatinine 3.4 H 3.5 H Random Glucose 156 H 149 H Calcium 8.3 L 8.1 L Magnesium Direct Bilirubin ALT Alkaline Phosphatase Total Protein Albumin Laboratory Results - last 24 hr 01/18/19 01/18/19 01/18/19 03:00 05:15 05:15 WBC 11.2 H RBC 4.19 Hgb 13.4 Hct 38.5 MCV 91.8 MCH 31.9 MCHC 34.8 RDW 14.3 Plt Count 212 MPV 7.5 Absolute Neuts (auto) 10.4 H Neutrophils % 92.6 H Neutrophils % (Manual) 81.2 Band Neutrophils % 6.9 Lymphocytes % 2.9 L D Lymphocytes % (Manual) 3.0 L Monocytes % 4.3 Monocytes % (Manual) 4 Eosinophils % 0.0 Eosinophils % (Manual) 0.0 Basophils % 0.2 Basophils % (Manual) 0.0 Myelocytes % (Man) 2 D Promyelocytes % (Man) 0 Blast Cells % (Manual) 0 Nucleated RBC % 0 Metamyelocytes 1 D Hypochromia 0 Platelet Estimate Normal Polychromasia 0 Poikilocytosis 0 Anisocytosis 0 Microcytosis 0 Macrocytosis 0 Anticoagulation Therapy Puncture Site ABG pH ABG pCO2 at Pt Temp ABG pO2 at Pt Temp ABG HCO3 ABG O2 Sat (Measured) ABG O2 Content ABG Base Excess Orlin Test O2 Delivery Device Oxygen Flow Rate Vent Mode Vent Rate Mechanical Rate Pressure Support Vent Sodium 117 L* 118 L* Potassium 3.7 3.8 Chloride 82 L 82 L Carbon Dioxide 19 L 20 L Anion Gap 16 16 BUN 32.8 H 34.2 H Creatinine 3.3 H 3.2 H Est GFR (CKD-EPI)AfAm 24.25 25.17 Est GFR (CKD-EPI)NonAf 20.92 21.71 POC Glucometer Random Glucose 153 H 166 H Calcium 8.5 8.3 L Phosphorus 3.1 Magnesium 1.6 L Total Bilirubin 0.7 Direct Bilirubin 0.4 H AST 25 ALT 71 H Alkaline Phosphatase 121 H Total Protein 4.7 L Albumin 1.9 L 01/18/19 01/18/19 01/18/19 05:53 09:20 11:35 WBC RBC Hgb Hct MCV MCH MCHC RDW Plt Count MPV Absolute Neuts (auto) Neutrophils % Neutrophils % (Manual) Band Neutrophils % Lymphocytes % Lymphocytes % (Manual) Monocytes % Monocytes % (Manual) Eosinophils % Eosinophils % (Manual) Basophils % Basophils % (Manual) Myelocytes % (Man) Promyelocytes % (Man) Blast Cells % (Manual) Nucleated RBC % Metamyelocytes Hypochromia Platelet Estimate Polychromasia Poikilocytosis Anisocytosis Microcytosis Macrocytosis Anticoagulation Therapy No Result Required. Puncture Site ABG pH 7.45 ABG pCO2 at Pt Temp 28.6 L ABG pO2 at Pt Temp 249 H ABG HCO3 20.0 L ABG O2 Sat (Measured) 99.2 H ABG O2 Content No Result Required. ABG Base Excess -2.3 L Orlin Test Not applicable O2 Delivery Device No Result Required. Oxygen Flow Rate 100 Vent Mode No Result Required. Vent Rate No Result Required. Mechanical Rate No Result Required. Pressure Support Vent No Result Required. Sodium Potassium Chloride Carbon Dioxide Anion Gap BUN Creatinine Est GFR (CKD-EPI)AfAm Est GFR (CKD-EPI)NonAf POC Glucometer 187 Random Glucose Calcium Phosphorus Magnesium Total Bilirubin Cancelled Direct Bilirubin Cancelled AST Cancelled ALT Cancelled Alkaline Phosphatase Cancelled Total Protein Cancelled Albumin Cancelled 01/18/19 01/18/19 01/18/19 12:50 13:30 17:02 WBC RBC Hgb Hct MCV MCH MCHC RDW Plt Count MPV Absolute Neuts (auto) Neutrophils % Neutrophils % (Manual) Band Neutrophils % Lymphocytes % Lymphocytes % (Manual) Monocytes % Monocytes % (Manual) Eosinophils % Eosinophils % (Manual) Basophils % Basophils % (Manual) Myelocytes % (Man) Promyelocytes % (Man) Blast Cells % (Manual) Nucleated RBC % Metamyelocytes Hypochromia Platelet Estimate Polychromasia Poikilocytosis Anisocytosis Microcytosis Macrocytosis Anticoagulation Therapy Puncture Site ABG pH ABG pCO2 at Pt Temp ABG pO2 at Pt Temp ABG HCO3 ABG O2 Sat (Measured) ABG O2 Content ABG Base Excess Orlin Test O2 Delivery Device Oxygen Flow Rate Vent Mode Vent Rate Mechanical Rate Pressure Support Vent Sodium 120 L Potassium 3.4 L Chloride 82 L Carbon Dioxide 21 Anion Gap 17 H BUN 37.4 H Creatinine 3.4 H Est GFR (CKD-EPI)AfAm 23.39 Est GFR (CKD-EPI)NonAf 20.18 POC Glucometer 181 140 Random Glucose 156 H Calcium 8.3 L Phosphorus Magnesium Total Bilirubin Direct Bilirubin AST ALT Alkaline Phosphatase Total Protein Albumin 01/18/19 01/18/19 20:00 20:45 WBC RBC Hgb Hct MCV MCH MCHC RDW Plt Count MPV Absolute Neuts (auto) Neutrophils % Neutrophils % (Manual) Band Neutrophils % Lymphocytes % Lymphocytes % (Manual) Monocytes % Monocytes % (Manual) Eosinophils % Eosinophils % (Manual) Basophils % Basophils % (Manual) Myelocytes % (Man) Promyelocytes % (Man) Blast Cells % (Manual) Nucleated RBC % Metamyelocytes Hypochromia Platelet Estimate Polychromasia Poikilocytosis Anisocytosis Microcytosis Macrocytosis Anticoagulation Therapy Puncture Site ABG pH ABG pCO2 at Pt Temp ABG pO2 at Pt Temp ABG HCO3 ABG O2 Sat (Measured) ABG O2 Content ABG Base Excess Orlin Test O2 Delivery Device Oxygen Flow Rate Vent Mode Vent Rate Mechanical Rate Pressure Support Vent Sodium 119 L Potassium 3.3 L Chloride 84 L Carbon Dioxide 22 Anion Gap 14 BUN 38.6 H Creatinine 3.5 H Est GFR (CKD-EPI)AfAm 22.58 Est GFR (CKD-EPI)NonAf 19.48 POC Glucometer 155 Random Glucose 149 H Calcium 8.1 L Phosphorus Magnesium Total Bilirubin Direct Bilirubin AST ALT Alkaline Phosphatase Total Protein Albumin plan: bgm qid novolog scale euthyroid clinically continue off tapazole as symptoms overlaping hypothyroidism repeat tsh free t4
[2019-01-19] MEDS: NYSTATIN 500,000 UNITS/5 ML SUSPENSION PO SCH ×4 (00:46→18:15)
[2019-01-19] MEDS: PIPERACILLIN/TAZOB 4.5 GM 4.5 GM in SODIUM CHLORIDE 100 ML IVPB SCH ×3 (01:25→18:14)
[2019-01-19] MEDS: HYDROCORTISONE SOD SUCCINATE 100 MG/2 ML VIAL IVPB SCH ×3 (01:25→18:14)
[2019-01-19] MEDS: INSULIN (LEVEMIR) 100 UNITS/ML UNITS SQ SCH ×2 (07:05→22:28)
[2019-01-19] MEDS: INSULIN SLIDING SCALE (NOVOLOG) 1 VIAL SQ SCH ×4 (07:06→22:38)
[2019-01-19 07:13] LABS: BASO % 0.1 % (0-2.0); EOS % 0.1 % (0-4.5); HEMATOCRIT 34.5 % (35.4-49); HEMOGLOBIN 12.2 GM/dL (11.7-16.9); LYMPH % 3.1 % (8-40); MCH 32.1 pg (25.7-33.7); MCHC 35.3 g/dl (32.0-35.9); MEAN CELL VOLUME 90.9 fl (80-96); MEAN PLT VOLUME 7.5 fl (7.5-11.1); MONO % 3.9 % (3.8-10.2); NEUT % 92.8 % (42.8-82.8); PLATELET COUNT 189 K/MM3 (134-434); RDW 14.1 % (11.9-15.9); WHITE BLOOD COUNT 10.4 K/mm3 (4.0-10.0)
[2019-01-19 07:47] LABS: ALBUMIN 2.3 g/dl (3.4-5.0); BILIRUBIN,TOTAL 0.9 mg/dL (0.2-1); BLOOD UREA NITROGEN 44.1 mg/dL (7-18); CALCIUM 8.3 mg/dL (8.5-10.1); CREATININE 3.7 mg/dL (0.55-1.3); MAGNESIUM 1.7 mg/dL (1.8-2.4); PHOSPHOROUS 3.6 mg/dL (2.5-4.9); POTASSIUM 3.2 mmol/L (3.5-5.1); TOT PROT 4.7 g/dl (6.4-8.2)
[2019-01-19] MEDS: ALBUTEROL SO4 2.5/IPRATROPIUM 0.5 INH SOL 3 ML VIAL.NEB. NEB SCH ×4 (07:55→21:06)
[2019-01-19] MEDS ORDERED: SODIUM CHLORIDE 100 ML IVPB ONE ×2 (08:05→17:18)
[2019-01-19] MEDS ORDERED: PIPERACILLIN/TAZOBACTAM 4.5 GM VIAL IVPB ONE ×2 (08:05→17:18)
[2019-01-19] MEDS: KCL 10 MEQ IVPB 10 MEQ/100 ML INFUS.BAG IVPB SCH ×3 (08:56→12:02)
[2019-01-19] MEDS: MUPIROCIN 2% TOPICAL OINTMENT FOR DECOLONIZATION NS SCH (09:02)
[2019-01-19] MEDS: DORZOLAMIDE 2% HCL OPHTHALMIC SOLUTION 10 ML BOTTLE OU SCH ×2 (09:23→22:38)
[2019-01-19] MEDS: FLUDROCORTISONE ACETATE 0.1 MG TABLET (FP) PO SCH (09:30)
[2019-01-19] MEDS ORDERED: MAGNESIUM OXIDE 400 MG TABLET (FP) PO ONE (09:30)
[2019-01-19 09:47] LABS: ANISOCYTOSIS 0; MACROCYTOSIS 0; PLATELET ESTIMATE NORMAL
--- NOTE | 2019-01-19 10:59 | PN ---
Progress Note, Physician Chief Complaint: patient seen and examined lethargic arousable on levophed drip - Current Medication List Current Medications: Active Medications Acetaminophen (Tylenol -) 650 mg PO Q6H PRN PRN Reason: PAIN LEVEL 1-5 Albuterol/Ipratropium (Duoneb -) 1 amp NEB RQID [facility] Last Admin: 01/18/19 21:30 Dose: 1 amp Atorvastatin Calcium (Lipitor -) 10 mg PO HS [facility] Last Admin: 01/18/19 21:11 Dose: 10 mg Chlorhexidine Gluconate (Hibiclens For Decolonization -) 1 applic TP HS [facility] Last Admin: 01/18/19 21:13 Dose: 1 applic Dorzolamide HCl (Trusopt 2%) 1 drop OU BID [facility] Last Admin: 01/19/19 09:23 Dose: 1 drop Fludrocortisone Acetate (Florinef -) 0.2 mg PO DAILY [facility] Last Admin: 01/19/19 09:30 Dose: 0.2 mg Hydrocortisone Sodium Succinate (Solu-Cortef -) 100 mg IVPB Q8H-IV [facility] Last Admin: 01/19/19 09:30 Dose: 100 mg Piperacillin Sod/Tazobactam (Sod 4.5 gm/ Sodium Chloride) 100 mls @ 200 mls/hr IVPB Q8H-IV [facility]; Protocol Last Admin: 01/19/19 08:59 Dose: 200 mls/hr Norepinephrine Bitartrate 8, (000 mcg/ Sodium Chloride) 500 mls @ 17.83 mls/hr IV ASDIR [facility]; Protocol Last Titration: 01/18/19 21:51 Dose: 0.09 mcg/kg/min, 56 mls/hr Furosemide 100 mg/ Sodium (Chloride) 50 mls @ 2.5 mls/hr IVPB TITR [facility]; Protocol Last Admin: 01/18/19 17:10 Dose: 5 mg/hr, 2.5 mls/hr Potassium Chloride (Potassium Chloride 10 Meq Premix Ivpb -) 10 meq in 100 mls @ 100 mls/hr IVPB Q60M [facility] Stop: 01/19/19 12:44 Last Admin: 01/19/19 08:56 Dose: 100 mls/hr Insulin Aspart (Novolog Vial Sliding Scale -) 1 vial SQ ACHS [facility]; Protocol Last Admin: 01/19/19 07:06 Dose: Not Given Insulin Detemir (Levemir Vial) 20 units SQ HS [facility] Last Admin: 01/18/19 21:13 Dose: 20 units Insulin Detemir (Levemir Vial) 20 units SQ AM [facility] Last Admin: 01/19/19 07:05 Dose: 20 units Magnesium Sulfate (Magnesium Sulfate) 2 gm IVPB ONCE ONE Stop: 01/19/19 11:31 Multi-Ingredient Lotion (Eucerin (Large Jar) -) 1 applic TP BID PRN PRN Reason: DRY SKIN Mupirocin (Bactroban Ointment (For Decolonization) -) 1 applic NS BID [facility] Stop: 01/19/19 21:59 Last Admin: 01/19/19 09:02 Dose: 1 applic Nystatin (Nystatin Oral Suspension -) 500,000 units PO Q6HPO [facility] Last Admin: 01/19/19 07:01 Dose: Not Given - Objective Vital Signs: Vital Signs Temperature 98.3 F 01/19/19 06:00 Pulse Rate 108 H 01/19/19 10:00 Respiratory Rate 28 H 01/19/19 10:00 Blood Pressure 105/62 01/19/19 10:00 O2 Sat by Pulse Oximetry (%) 100 01/19/19 09:00 Constitutional: Yes: Calm, Obese Cardiovascular: Yes: Regular Rate and Rhythm, S1, S2 Respiratory: Yes: Diminished Gastrointestinal: Yes: Soft, Abdomen, Obese Edema: Yes Labs: CBC, BMP 01/19/19 05:30 01/19/19 05:30 INR, PTT INR 1.69 (0.83-1.09) H 01/09/19 17:55 Problem List - Problems (1) Acute renal insufficiency Assessment/Plan: oliguric renal on board might need UF/HD trial of iv lasix given acei lisinopril stopped Code(s): N28.9 - DISORDER OF KIDNEY AND URETER, UNSPECIFIED (2) Hypotension Assessment/Plan: on levopphed drip monitor urine output Code(s): I95.9 - HYPOTENSION, UNSPECIFIED (3) Hyponatremia Assessment/Plan: got iv lasix 160mg got tolvaptan 15mg as well today sodium 123 creatinine is increasing hypervolemia hyponatremia Code(s): E87.1 - HYPO-OSMOLALITY AND HYPONATREMIA (4) Hyperglycemia Assessment/Plan: [id number] noted 8.8 started on levemir bid endocrine note appreciated Code(s): R73.9 - HYPERGLYCEMIA, UNSPECIFIED (5) Acute exacerbation of chronic obstructive pulmonary disease (COPD) Assessment/Plan: stress dose steroids o2 to maintain sturation >90% biap at night and as needed in day Code(s): J44.1 - CHRONIC OBSTRUCTIVE PULMONARY DISEASE W (ACUTE) EXACERBATION (6) DVT of upper extremity (deep vein thrombosis) Assessment/Plan: on xarelto 15mg remove SCD Code(s): I82.629 - ACUTE EMBOLISM AND THROMBOSIS OF DEEP VN UNSP UP EXTREM (7) Thrush, oral Assessment/Plan: nystatin swish spit Code(s): B37.0 - CANDIDAL STOMATITIS (8) Hyperthyroidism Assessment/Plan: tapazole stopped euthyroid endocrine consult appreciated Code(s): E05.90 - THYROTOXICOSIS, UNSP WITHOUT THYROTOXIC CRISIS OR STORM (9) Pneumonia Assessment/Plan: zosyn Code(s): J18.9 - PNEUMONIA, UNSPECIFIED ORGANISM (10) Hearing loss Assessment/Plan: ent consult appreciate hearing aides audiology testing on discharge Code(s): H91.90 - UNSPECIFIED HEARING LOSS, UNSPECIFIED EAR (11) Thyromegaly Assessment/Plan: follow [facility] with the surgeon( head nad neck surgeon) Code(s): E01.0 - IODINE-DEFICIENCY RELATED DIFFUSE (ENDEMIC) GOITER (12) HLD (hyperlipidemia) Assessment/Plan: statin Code(s): E78.5 - HYPERLIPIDEMIA, UNSPECIFIED (13) Electrolyte abnormality Assessment/Plan: repleted recheck magneisum and potassium Code(s): E87.8 - OTH DISORDERS OF ELECTROLYTE AND FLUID BALANCE, NEC (14) Hypokalemia Code(s): E87.6 - HYPOKALEMIA (15) Shock Code(s): R57.9 - SHOCK, UNSPECIFIED (16) Acute on chronic diastolic CHF (congestive heart failure) Assessment/Plan: with bilateral pleural effusion and hyoptensive on levophed Code(s): I50.33 - ACUTE ON CHRONIC DIASTOLIC (CONGESTIVE) HEART FAILURE
[2019-01-19] MEDS ORDERED: RIVAROXABAN 10 MG TABLET PO SCH (11:15)
--- NOTE | 2019-01-19 11:25 | PN ---
Teaching Attending Note Name of Resident: Andrés Tai ATTENDING PHYSICIAN STATEMENT I saw and evaluated the patient. I reviewed the resident's note and discussed the case with the resident. I agree with the resident's findings and plan as documented. SUBJECTIVE: Pt seen and examined in the ICU. Remains on levophed gtt but lower dose. More alert, awake today. Saturating well on nasal cannula. Remains oliguric despite aggressive diuresis. OBJECTIVE: Vital Signs Period Temp Pulse Resp BP Sys/Woodall Pulse Ox Last 24 Hr 97.6 F-98.5 F 107-122 18-28 90-150/43-96 98-100 Intake & Output 01/16/19 01/17/19 01/18/19 01/19/19 23:59 23:59 23:59 23:59 Intake Total 3825 3924 3790 522 Output Total 325 400 250 250 Balance 3500 3524 3540 272 Weight 154.04 kg 157.623 kg 158.559 kg 160.6 kg Gen: mildly tachypneic at rest Heart: tachycardic, regular Lung: distant breath sounds Abd: soft, obese Ext: + edema CBC, BMP 01/19/19 05:30 01/19/19 05:30 Active Medications Acetaminophen (Tylenol -) 650 mg PO Q6H PRN PRN Reason: PAIN LEVEL 1-5 Albuterol/Ipratropium (Duoneb -) 1 amp NEB RQID ON [facility] OF [facility] Last Admin: 01/18/19 21:30 Dose: 1 amp Atorvastatin Calcium (Lipitor -) 10 mg PO [facility] Last Admin: 01/18/19 21:11 Dose: 10 mg Chlorhexidine Gluconate (Hibiclens For Decolonization -) 1 applic TP HS ON [facility] Last Admin: 01/18/19 21:13 Dose: 1 applic Dorzolamide HCl (Trusopt 2%) 1 drop OU BID ON [facility] OF [facility] Last Admin: 01/19/19 09:23 Dose: 1 drop Fludrocortisone Acetate (Florinef -) 0.2 mg PO DAILY ON [facility] Last Admin: 01/19/19 09:30 Dose: 0.2 mg Hydrocortisone Sodium Succinate (Solu-Cortef -) 100 mg IVPB Q8H-IV ON [facility] OF [facility] Last Admin: 01/19/19 09:30 Dose: 100 mg Piperacillin Sod/Tazobactam (Sod 4.5 gm/ Sodium Chloride) 100 mls @ 200 mls/hr IVPB Q8H-IV [facility]; Protocol Last Admin: 01/19/19 08:59 Dose: 200 mls/hr Norepinephrine Bitartrate 8, (000 mcg/ Sodium Chloride) 500 mls @ 17.83 mls/hr IV ASDIR ON [facility]; Protocol Last Titration: 01/18/19 21:51 Dose: 0.09 mcg/kg/min, 56 mls/hr Furosemide 100 mg/ Sodium (Chloride) 50 mls @ 2.5 mls/hr IVPB TITR [facility]; Protocol Last Admin: 01/18/19 17:10 Dose: 5 mg/hr, 2.5 mls/hr Potassium Chloride (Potassium Chloride 10 Meq Premix Ivpb -) 10 meq in 100 mls @ 100 mls/hr IVPB Q60M [facility] Stop: 01/19/19 12:44 Last Admin: 01/19/19 08:56 Dose: 100 mls/hr Insulin Aspart (Novolog Vial Sliding Scale -) 1 vial SQ ACHS ON [facility]; Protocol Last Admin: 01/19/19 07:06 Dose: Not Given Insulin Detemir (Levemir Vial) 20 units SQ HS [facility] Last Admin: 01/18/19 21:13 Dose: 20 units Insulin Detemir (Levemir Vial) 20 units SQ AM ON [facility] Last Admin: 01/19/19 07:05 Dose: 20 units Magnesium Sulfate (Magnesium Sulfate) 2 gm IVPB ONCE ONE Stop: 01/19/19 11:31 Multi-Ingredient Lotion (Eucerin (Large Jar) -) 1 applic TP BID PRN PRN Reason: DRY SKIN Mupirocin (Bactroban Ointment (For Decolonization) -) 1 applic NS BID ON [facility] Stop: 01/19/19 21:59 Last Admin: 01/19/19 09:02 Dose: 1 applic Nystatin (Nystatin Oral Suspension -) 500,000 units PO Q6HPO ON LICENSE OF [facility] Last Admin: 01/19/19 07:01 Dose: Not Given Rivaroxaban (Xarelto) 15 mg PO DAILY@1800 [facility] ASSESSMENT AND PLAN: Acute on Chronic Diastolic Heart Failure UTI Shock of unclear etiology Acute Kidney Injury Hyponatremia Morbid Obesity Obstructive Sleep Apnea Obesity Hypoventilation Syndrome COPD Anemia h/o DVT HTN - IV lasix per renal - monitor urine output, creatinine - will place HD catheter for ultrafiltration - titrate pressors to maintain MAP >65 - continue stress dose steroids - O2 to keep SpO2 >90% - inhaled bronchodilators - unable to obtain CT neck/chest due to body habitus - continue antibiotics - f/u pending cultures - BiPAP at night and PRN during day - continue anticoagulation - continue ICU monitoring - prognosis guarded critical care time spent in reviewing chart, evaluating patient and formulating plan 35 min Problem List - Problems (1) Acute on chronic diastolic CHF (congestive heart failure) Code(s): I50.33 - ACUTE ON CHRONIC DIASTOLIC (CONGESTIVE) HEART FAILURE (2) Morbid (severe) obesity due to excess calories Code(s): E66.01 - MORBID (SEVERE) OBESITY DUE TO EXCESS CALORIES
[2019-01-19] MEDS ORDERED: MAGNESIUM SULF 50% (8.12 MEQ/2 ML-1 GM VIAL) IVPB ONE (11:30)
[2019-01-19] MEDS ORDERED: NOREPINEPHRINE BITARTRATE 4 MG/4 ML ML IV ONE (12:06)
[2019-01-19] MEDS: NOREPINEPHRINE BITARTRATE 8,000 MCG in SODIUM CHLORIDE 492 ML IV SCH ×2 (12:07→20:20)
[2019-01-19] MEDS ORDERED: SODIUM CHLORIDE 250 ML IV PRN ×2 (12:39)
--- NOTE | 2019-01-19 12:47 | PN ---
Physical Exam: SUBJECTIVE: Patient seen and examined in ICU. Patient alert and oriented. Pt still overloaded in appearance. Pt received Lasix 120, 160, and albumin yesterday and still oliguric. On 2.5 gtt lasix. Pt on NC satting in mid 90's. A line BP showing MAP >65 on 15 mcg of levo and stress dose steroids. OBJECTIVE: Vital Signs Period Temp Pulse Resp BP Sys/Woodall Pulse Ox Last 24 Hr 97.6 F-98.5 F 107-122 18-28 90-150/43-96 98-100 GENERAL: The patient is awake, alert, in no acute distress. NECK: swollen. LUNGS: Breath sounds equal, decreased in bases. HEART: Regular rate and rhythm, S1, S2 without murmur, rub or gallop. ABDOMEN: Soft, nontender, nondistended, normoactive bowel sounds, no guarding, no rebound. EXTREMITIES: 2+ pulses, warm, well-perfused, no edema. SKIN: skin desquamation difusely in noncompromised areas. Laboratory Results - last 24 hr 01/18/19 01/18/19 01/18/19 12:50 13:30 17:02 WBC RBC Hgb Hct MCV MCH MCHC RDW Plt Count MPV Absolute Neuts (auto) Neutrophils % Neutrophils % (Manual) Band Neutrophils % Lymphocytes % Lymphocytes % (Manual) Monocytes % Monocytes % (Manual) Eosinophils % Eosinophils % (Manual) Basophils % Basophils % (Manual) Myelocytes % (Man) Promyelocytes % (Man) Blast Cells % (Manual) Nucleated RBC % Metamyelocytes Hypochromia Platelet Estimate Polychromasia Poikilocytosis Anisocytosis Microcytosis Macrocytosis Sodium 120 L Potassium 3.4 L Chloride 82 L Carbon Dioxide 21 Anion Gap 17 H BUN 37.4 H Creatinine 3.4 H Est GFR (CKD-EPI)AfAm 23.39 Est GFR (CKD-EPI)NonAf 20.18 POC Glucometer 181 140 Random Glucose 156 H Calcium 8.3 L Phosphorus Magnesium Total Bilirubin AST ALT Alkaline Phosphatase Total Protein Albumin TSH Free T4 01/18/19 01/18/19 01/19/19 20:00 20:45 05:30 WBC 10.4 H RBC 3.80 L Hgb 12.2 Hct 34.5 L MCV 90.9 MCH 32.1 MCHC 35.3 RDW 14.1 Plt Count 189 MPV 7.5 Absolute Neuts (auto) 9.7 H Neutrophils % 92.8 H Neutrophils % (Manual) 86.1 H Band Neutrophils % 6.9 Lymphocytes % 3.1 L Lymphocytes % (Manual) 1.0 L D Monocytes % 3.9 Monocytes % (Manual) 2 L Eosinophils % 0.1 D Eosinophils % (Manual) 1.0 D Basophils % 0.1 Basophils % (Manual) 0.0 Myelocytes % (Man) 0 D Promyelocytes % (Man) 0 Blast Cells % (Manual) 0 Nucleated RBC % 0 Metamyelocytes 3 H D Hypochromia 0 Platelet Estimate Normal Polychromasia 0 Poikilocytosis 0 Anisocytosis 0 Microcytosis 0 Macrocytosis 0 Sodium 119 L Potassium 3.3 L Chloride 84 L Carbon Dioxide 22 Anion Gap 14 BUN 38.6 H Creatinine 3.5 H Est GFR (CKD-EPI)AfAm 22.58 Est GFR (CKD-EPI)NonAf 19.48 POC Glucometer 155 Random Glucose 149 H Calcium 8.1 L Phosphorus Magnesium Total Bilirubin AST ALT Alkaline Phosphatase Total Protein Albumin TSH Free T4 01/19/19 01/19/19 01/19/19 05:30 05:30 07:03 WBC RBC Hgb Hct MCV MCH MCHC RDW Plt Count MPV Absolute Neuts (auto) Neutrophils % Neutrophils % (Manual) Band Neutrophils % Lymphocytes % Lymphocytes % (Manual) Monocytes % Monocytes % (Manual) Eosinophils % Eosinophils % (Manual) Basophils % Basophils % (Manual) Myelocytes % (Man) Promyelocytes % (Man) Blast Cells % (Manual) Nucleated RBC % Metamyelocytes Hypochromia Platelet Estimate Polychromasia Poikilocytosis Anisocytosis Microcytosis Macrocytosis Sodium 121 L Potassium 3.2 L Chloride 84 L Carbon Dioxide 20 L Anion Gap 17 H BUN 44.1 H Creatinine 3.7 H Est GFR (CKD-EPI)AfAm 21.12 Est GFR (CKD-EPI)NonAf 18.22 POC Glucometer 135 Random Glucose 138 H Calcium 8.3 L Phosphorus 3.6 Magnesium 1.7 L Total Bilirubin 0.9 AST 30 ALT 77 H Alkaline Phosphatase 111 Total Protein 4.7 L Albumin 2.3 L TSH 0.12 L D Free T4 0.49 L 01/19/19 11:06 WBC RBC Hgb Hct MCV MCH MCHC RDW Plt Count MPV Absolute Neuts (auto) Neutrophils % Neutrophils % (Manual) Band Neutrophils % Lymphocytes % Lymphocytes % (Manual) Monocytes % Monocytes % (Manual) Eosinophils % Eosinophils % (Manual) Basophils % Basophils % (Manual) Myelocytes % (Man) Promyelocytes % (Man) Blast Cells % (Manual) Nucleated RBC % Metamyelocytes Hypochromia Platelet Estimate Polychromasia Poikilocytosis Anisocytosis Microcytosis Macrocytosis Sodium Potassium Chloride Carbon Dioxide Anion Gap BUN Creatinine Est GFR (CKD-EPI)AfAm Est GFR (CKD-EPI)NonAf POC Glucometer 160 Random Glucose Calcium Phosphorus Magnesium Total Bilirubin AST ALT Alkaline Phosphatase Total Protein Albumin TSH Free T4 Active Medications Generic Name Dose Route Start Last Admin Trade Name Freq PRN Reason Stop Dose Admin Acetaminophen 650 mg 01/14/19 14:02 Tylenol - PO Q6H PRN PAIN LEVEL 1-5 Albumin Human 12.5 gm 01/19/19 13:00 Albumin Human 25% IVPB 01/19/19 14:31 Q30M [facility] Albuterol/Ipratropium 1 amp 01/14/19 16:00 01/18/19 21:30 Duoneb - NEB 1 amp RQID [facility] Administration Atorvastatin Calcium 10 mg 01/14/19 22:00 01/18/19 21:11 Lipitor - PO 10 mg HS [facility] Administration Chlorhexidine Gluconate 1 applic 01/14/19 22:00 01/18/19 21:13 Hibiclens For Decolonization - TP 1 applic HS [facility] Administration Dorzolamide HCl 1 drop 01/14/19 22:00 01/19/19 09:23 Trusopt 2% OU 1 drop BID [facility] Administration Fludrocortisone Acetate 0.2 mg 01/16/19 11:15 01/19/19 09:30 Florinef - PO 0.2 mg DAILY [facility] Administration Hydrocortisone Sodium Succinate 100 mg 01/16/19 11:15 01/19/19 09:30 Solu-Cortef - IVPB 100 mg Q8H-IV [facility] Administration Piperacillin Sod/Tazobactam 100 mls @ 200 mls/hr 01/14/19 18:00 01/19/19 08: 59 Sod 4.5 gm/ Sodium Chloride IVPB 200 mls/hr Q8H-IV [facility] Administration Protocol Norepinephrine Bitartrate 8, 500 mls @ 17.83 mls/hr 01/18/19 09:30 01/19/19 12:07 000 mcg/ Sodium Chloride IV 0.09 mcg/kg/min ASDIR [facility] 56 mls/hr Administration Protocol 0.03 MCG/KG/MIN Furosemide 100 mg/ Sodium 50 mls @ 2.5 mls/hr 01/18/19 17:00 01/18/19 17:10 Chloride IVPB 5 mg/hr TITR [facility] 2.5 mls/hr Administration Protocol 5 MG/HR Sodium Chloride 250 mls @ 3,000 mls/hr 01/19/19 12:39 Normal Saline - IV 01/20/19 12:38 PRN PRN Hypotension during Dialysis Sodium Chloride 250 mls @ 3,000 mls/hr 01/19/19 12:39 Normal Saline - IV 01/20/19 12:38 PRN PRN Hypotension during Dialysis Insulin Aspart 1 vial 01/14/19 16:30 01/19/19 12:02 Novolog Vial Sliding Scale - SQ Not Given ACHS [facility] Protocol Insulin Detemir 20 units 01/14/19 22:00 01/18/19 21:13 Levemir Vial SQ 20 units HS [facility] Administration Insulin Detemir 20 units 01/15/19 07:00 01/19/19 07:05 Levemir Vial SQ 20 units AM [facility] Administration Multi-Ingredient Lotion 1 applic 01/14/19 14:02 Eucerin (Large Jar) - TP BID PRN DRY SKIN Mupirocin 1 applic 01/14/19 22:00 01/19/19 09:02 Bactroban Ointment (For Decolonization) - NS 01/19/19 21:59 1 applic BID [facility] Administration Nystatin 500,000 units 01/14/19 18:00 01/19/19 12:07 Nystatin Oral Suspension - PO Not Given Q6HPO [facility] Rivaroxaban 15 mg 01/19/19 18:00 Xarelto PO DAILY@1800 [facility] ASSESSMENT/PLAN: 48 yo M with PMH of morbid obesity, OHS, BONY, COPD, diastolic CHF, anemia, history of UGI bleeding, HTN, hyperthyroidism, DVTs, who was initially admitted for acute on chronic diastolic CHF. During hospital course( 01/14/19) patient was found hypotensive and lethargic, and was transferred to the ICU. Neurology:Acute toxic metabolic encephalopathy Lethargy -more arousable today Cardiology Hypervolemia 2/2 Cardiogenic shock -On Levophed drip 15 -Titrate pressors to maintain MAP >65 -Cardiology (Dr. Chowdhury)recs appreciated -Nephrology recs appreciated - vaso d/c 2/2 hyponatremia HFpEF -holding lasix -last ECHO 01/11: nondiagnostic, limited in quality. nl EF. will rpt -strict I&O -IVF gentle hydration ID: Sepsis 2/2 proteus UTI -c/w Zosyn 3.375 q8h -rpt Culture -ID (Dr. Calles)recs appreciated. Pulmonology: OHS, COPD -c/w duonebs RQID and albuterol PRN -BiPAP at night and PRN during the day; SpO2 >90%. currently saturating well on non rebreather -IV hydrocortisone 100 Q8h, Fludrocortisone PO 0.2 mg Renal: Hypervolemic hyponatremia - will assess volume status per A line pressure. -no acute indication for 3% saline is noted due to pt's mental status not impaired, continue tolvaptan if Na persistently hypo. . -trend Na q 8-12 hrs -continue Lasix IV 80mg BID MARVA -pt oliguric w/ worsening hyponatremia. cannot give 3%saline 2/2 worsening volume status -on 2.5mg lasix drip -shiley catheter placed in left IJV to undergo UF 2-2.5L. -renal/ bladder u/s no evidence of hydronephrosis or obstruction. -will continue monitor I&O and Cr Hypokalemia -repleted Heme: Hx of DVT's -continue xarelto 20mg daily Derm-> desquamated skin - doubt scalded skin syndrome - derm consult (Dr. West) appreciate recs. - continue to monitor for worsening. Endo: Hypothyroid, DM -low T4, consider repeating TFTs -Endo recs appreciated -thyroid mass, neck u/s poor study due to body habitus. -patient had head and neck surgery evaluation at [place] (Dr. Joon Waite) in 2016 and thyroidectomy recommended. head and neck re-evaluation appreciated -thyroid enlargement evident on examination, continues to show on imaging studies, per prior records prior biopsies have been negative -c/w levemir 20units bid -c/w ISS and BGM F/E/N -minimize IVF -routine bmp monitoring Prophylaxis -Xarelto PO 20mg daily Dispo -ICU for closer monitoring Visit type - Emergency Visit Emergency Visit: Yes ED Registration Date: 01/09/19 Care time: The patient presented to the Emergency Department on the above date and was hospitalized for further evaluation of their emergent condition. - New Patient This patient is new to me today: No - Critical Care Critical Care patient: Yes Total Critical Care Time (in minutes): 35 Critical Care Statement: The care of this patient involved high complexity decision making to prevent further life threatening deterioration of the patient 's condition and/or to evaluate & treat vital organ system(s) failure or risk of failure. - Discharge Referral Referred to [facility] Med [facility].: No
--- NOTE | 2019-01-19 13:06 | PROC ---
Central Line Insertion Indication: Other (HD) Risks and Benefits Explained: Yes Consent on Chart: Yes Central Line: Dialysis Cath, Tri Lumen Anesthesia: 1% Lidocaine Sterile Technique: Yes Ultrasound Guided Assistance: Yes Position: Left Internal Jugular Post Insertion: Yes: Chest X-Ray Ordered Sterile Dressing Applied: Yes
--- NOTE | 2019-01-19 13:17 | PN ---
Progress Note (short form) - Note Progress Note: Renal follow up for hyponatremia Seen and examined in the ICU awake on NC mother at the bedside remains oliguric overnight on Lasix gtt on Levophed gtt Vital Signs Temperature 97.6 F 01/19/19 10:00 Pulse Rate 108 H 01/19/19 10:00 Respiratory Rate 28 H 01/19/19 10:00 Blood Pressure 105/62 01/19/19 10:00 O2 Sat by Pulse Oximetry (%) 100 01/19/19 09:00 Intake & Output 01/16/19 01/17/19 01/18/19 01/19/19 23:59 23:59 23:59 23:59 Intake Total 3825 3924 3790 522 Output Total 325 400 250 250 Balance 3500 3524 3540 272 Weight 154.04 kg 157.623 kg 158.559 kg 160.6 kg NAD trace LE edema CBC, BMP 01/19/19 05:30 01/19/19 05:30 Current Medications Acetaminophen (Tylenol -) 650 mg PO Q6H PRN PRN Reason: PAIN LEVEL 1-5 Albumin Human (Albumin Human 25%) 12.5 gm IVPB Q30M [facility] Stop: 01/19/19 14:31 Albuterol/Ipratropium (Duoneb -) 1 amp NEB RQID [facility] Last Admin: 01/18/19 21:30 Dose: 1 amp Atorvastatin Calcium (Lipitor -) 10 mg PO HS [facility] Last Admin: 01/18/19 21:11 Dose: 10 mg Chlorhexidine Gluconate (Hibiclens For Decolonization -) 1 applic TP HS [facility] Last Admin: 01/18/19 21:13 Dose: 1 applic Dorzolamide HCl (Trusopt 2%) 1 drop OU BID [facility] Last Admin: 01/19/19 09:23 Dose: 1 drop Fludrocortisone Acetate (Florinef -) 0.2 mg PO DAILY [facility] Last Admin: 01/19/19 09:30 Dose: 0.2 mg Hydrocortisone Sodium Succinate (Solu-Cortef -) 100 mg IVPB Q8H-IV [facility] Last Admin: 01/19/19 09:30 Dose: 100 mg Piperacillin Sod/Tazobactam (Sod 4.5 gm/ Sodium Chloride) 100 mls @ 200 mls/hr IVPB Q8H-IV [facility]; Protocol Last Admin: 01/19/19 08:59 Dose: 200 mls/hr Norepinephrine Bitartrate 8, (000 mcg/ Sodium Chloride) 500 mls @ 17.83 mls/hr IV ASDIR [facility]; Protocol Last Admin: 01/19/19 12:07 Dose: 0.09 mcg/kg/min, 56 mls/hr Furosemide 100 mg/ Sodium (Chloride) 50 mls @ 2.5 mls/hr IVPB TITR [facility]; Protocol Last Admin: 01/18/19 17:10 Dose: 5 mg/hr, 2.5 mls/hr Sodium Chloride (Normal Saline -) 250 mls @ 3,000 mls/hr IV PRN PRN PRN Reason: Hypotension during Dialysis Stop: 01/20/19 12:38 Sodium Chloride (Normal Saline -) 250 mls @ 3,000 mls/hr IV PRN PRN PRN Reason: Hypotension during Dialysis Stop: 01/20/19 12:38 Insulin Aspart (Novolog Vial Sliding Scale -) 1 vial SQ ACHS [facility]; Protocol Last Admin: 01/19/19 12:02 Dose: Not Given Insulin Detemir (Levemir Vial) 20 units SQ HS [facility] Last Admin: 01/18/19 21:13 Dose: 20 units Insulin Detemir (Levemir Vial) 20 units SQ AM [facility] Last Admin: 01/19/19 07:05 Dose: 20 units Multi-Ingredient Lotion (Eucerin (Large Jar) -) 1 applic TP BID PRN PRN Reason: DRY SKIN Mupirocin (Bactroban Ointment (For Decolonization) -) 1 applic NS BID [facility] Stop: 01/19/19 21:59 Last Admin: 01/19/19 09:02 Dose: 1 applic Nystatin (Nystatin Oral Suspension -) 500,000 units PO Q6HPO [facility] Last Admin: 01/19/19 12:07 Dose: Not Given Rivaroxaban (Xarelto) 15 mg PO DAILY@1800 [facility] 48 year old gentleman with history of morbid obesity, COPD, BONY , diastolic heart failure, anemia, hypertension, hypothyrodism, DVT presented with back pain from the CT and found to have hyponatremia with serum Na of 123. 1. Hypervolemic hyponatremia 2. Diastolic CHF with pleural effusions 3. Acute on chronic lower back pain 4. Morbid obesity 5. COPD/BONY 6. Hypotension/shock r/o sepsis 7. Acute renal failure secondary to sepsis Pt remains oliguric despite aggressive diuretics and has gross volume overload. Will plan for HD/UF today via trialysis catheter. Risks and benefits of dialysis were explained to the patient and mother. Risk including bleeding, anaphalxsis, hyptension, pnumothorax with catheter insertion were discussed. The mother expressed understanding and consented to the procedure. Will attempt 2-2.5L UF today during the treatment continue Lasix IV 80mg BID Supplamental O2 as needed Vasopressers to maintain MAP > 65 Prognosis is guarded Thank you Dennis Aldana DO
[2019-01-19] MEDS: ALBUMIN HUMAN 25% 12.5 GM/50 ML VIAL IVPB SCH ×3 (18:15→18:17)
[2019-01-19] MEDS: FUROSEMIDE INJECTION 100 MG in SODIUM CHLORIDE 40 ML IVPB SCH (18:15)
[2019-01-19] MEDS: RIVAROXABAN 15 MG TABLET PO SCH (18:15)
[2019-01-19] MEDS: ATORVASTATIN CA 10 MG TABLET (FP) PO SCH (22:38)
[2019-01-19] MEDS: CHLORHEXIDINE GLUCONATE 4% CLEANSER FOR DECOLONIZATION TP SCH (22:38)
--- NOTE | 2019-01-19 23:39 | PN ---
Progress Note, Physician Chief Complaint: resting on bipap confortable arousable History of Present Illness: copd,dm2,morbid obesity sepsis,pneumonia,chf,alfa,on levophed - Current Medication List Current Medications: Active Medications Acetaminophen (Tylenol -) 650 mg PO Q6H PRN PRN Reason: PAIN LEVEL 1-5 Albumin Human (Albumin Human 25%) 12.5 gm IVPB Q30M [facility] Albuterol/Ipratropium (Duoneb -) 1 amp NEB RQID [facility] Last Admin: 01/19/19 21:06 Dose: 1 amp Atorvastatin Calcium (Lipitor -) 10 mg PO HS [facility] Last Admin: 01/19/19 22:38 Dose: 10 mg Chlorhexidine Gluconate (Hibiclens For Decolonization -) 1 applic TP HS [facility] Last Admin: 01/19/19 22:38 Dose: 1 applic Dorzolamide HCl (Trusopt 2%) 1 drop OU BID [facility] Last Admin: 01/19/19 22:38 Dose: 1 drop Fludrocortisone Acetate (Florinef -) 0.2 mg PO DAILY [facility] Last Admin: 01/19/19 09:30 Dose: 0.2 mg Hydrocortisone Sodium Succinate (Solu-Cortef -) 100 mg IVPB Q8H-IV [facility] Last Admin: 01/19/19 18:14 Dose: 100 mg Piperacillin Sod/Tazobactam (Sod 4.5 gm/ Sodium Chloride) 100 mls @ 200 mls/hr IVPB Q8H-IV [facility]; Protocol Last Admin: 01/19/19 18:14 Dose: 200 mls/hr Norepinephrine Bitartrate 8, (000 mcg/ Sodium Chloride) 500 mls @ 17.83 mls/hr IV ASDIR [facility]; Protocol Last Admin: 01/19/19 20:20 Dose: 0.09 mcg/kg/min, 56 mls/hr Furosemide 100 mg/ Sodium (Chloride) 50 mls @ 2.5 mls/hr IVPB TITR [facility]; Protocol Last Admin: 01/19/19 18:15 Dose: 5 mg/hr, 2.5 mls/hr Sodium Chloride (Normal Saline -) 250 mls @ 3,000 mls/hr IV PRN PRN PRN Reason: Hypotension during Dialysis Stop: 01/20/19 12:38 Sodium Chloride (Normal Saline -) 250 mls @ 3,000 mls/hr IV PRN PRN PRN Reason: Hypotension during Dialysis Stop: 01/20/19 12:38 Sodium Chloride (Normal Saline -) 250 mls @ 3,000 mls/hr IV PRN PRN PRN Reason: Hypotension during Dialysis Stop: 01/20/19 18:27 Insulin Aspart (Novolog Vial Sliding Scale -) 1 vial SQ ACHS [facility]; Protocol Last Admin: 01/19/19 22:38 Dose: Not Given Insulin Detemir (Levemir Vial) 20 units SQ HS [facility] Last Admin: 01/19/19 22:28 Dose: 20 units Insulin Detemir (Levemir Vial) 20 units SQ AM [facility] Last Admin: 01/19/19 07:05 Dose: 20 units Multi-Ingredient Lotion (Eucerin (Large Jar) -) 1 applic TP BID PRN PRN Reason: DRY SKIN Nystatin (Nystatin Oral Suspension -) 500,000 units PO Q6HPO [facility] Last Admin: 01/19/19 18:15 Dose: 500,000 units Rivaroxaban (Xarelto) 15 mg PO DAILY@1800 [facility] Last Admin: 01/19/19 18:15 Dose: 15 mg - Objective Vital Signs: Vital Signs Temperature 98.4 F 01/19/19 20:00 Pulse Rate 101 H 01/19/19 20:20 Respiratory Rate 22 H 01/19/19 20:00 Blood Pressure 97/56 L 01/19/19 20:20 O2 Sat by Pulse Oximetry (%) 100 01/19/19 16:45 Constitutional: Yes: Calm Eyes: Yes: EOM Intact HENT: Yes: Normocephalic, Hoarseness, Thrush Neck: Yes: Trachea Midline Cardiovascular: Yes: Tachycardia Respiratory: Yes: On BiPap, Orthopnea, Poor Air Entry, Rhonchi, SOB, Tachypnea Gastrointestinal: Yes: Abdomen, Obese ...Rectal Exam: Yes: Deferred Genitourinary: Yes: Scrotal Edema Breast(s): Yes: Gynecomastia Edema: LUE: 2+, RUE: 3+, LLE: 3+ Integumentary: Yes: Erythema, Onychomycosis, Venous Stasis Changes Neurological: Yes: Alert, Weakness Labs: CBC, BMP 01/19/19 05:30 01/19/19 05:30 INR, PTT INR 1.69 (0.83-1.09) H 01/09/19 17:55 Problem List - Problems (1) Acute exacerbation of chronic obstructive pulmonary disease (COPD) Code(s): J44.1 - CHRONIC OBSTRUCTIVE PULMONARY DISEASE W (ACUTE) EXACERBATION (2) DVT (deep venous thrombosis) Code(s): I82.409 - ACUTE EMBOLISM AND THOMBOS UNSP DEEP VN UNSP LOWER EXTREMITY (3) Lower back pain Code(s): M54.5 - LOW BACK PAIN Qualifiers: Chronicity: acute Back pain laterality: midline Sciatica presence: without sciatica Qualified Code(s): M54.5 - Low back pain (4) Morbid obesity Code(s): E66.01 - MORBID (SEVERE) OBESITY DUE TO EXCESS CALORIES Assessment/Plan Current Active Problems Acute exacerbation of chronic obstructive pulmonary disease (COPD) (Acute) Acute renal insufficiency (Acute) Anemia (Acute) DVT (deep venous thrombosis) (Acute) DVT of upper extremity (deep vein thrombosis) (Acute) Diabetes (Acute) Electrolyte abnormality (Acute) HLD (hyperlipidemia) (Acute) Hearing loss (Acute) Hyperglycemia (Acute) Hyperthyroidism (Acute) Hypokalemia (Acute) Hyponatremia (Acute) Hypotension (Acute) Lower back pain (Acute) Morbid obesity (Acute) Poor perfusion of leg (Acute) Rhinitis (Acute) Right leg pain (Acute) Shock (Acute) Tachycardia (Acute) Thrush, oral (Acute) Thyromegaly (Acute) Thyromegaly (Acute) Upper leg DVT (deep venous thromboembolism), chronic (Acute) euthyroid sick/ adrenal deficiency Abnormal Lab Results 01/19/19 01/19/19 01/19/19 05:30 05:30 05:30 WBC 10.4 H RBC 3.80 L Hct 34.5 L Absolute Neuts (auto) 9.7 H Neutrophils % 92.8 H Neutrophils % (Manual) 86.1 H Lymphocytes % 3.1 L Lymphocytes % (Manual) 1.0 L D Monocytes % (Manual) 2 L Metamyelocytes 3 H D Sodium 121 L Potassium 3.2 L Chloride 84 L Carbon Dioxide 20 L Anion Gap 17 H BUN 44.1 H Creatinine 3.7 H Random Glucose 138 H Calcium 8.3 L Magnesium 1.7 L ALT 77 H Total Protein 4.7 L Albumin 2.3 L TSH 0.12 L D Free T4 0.49 L plan: iv solucortef 100mg tid florinef .1mg dialysis iv antibiotic bgm q4hrs
[2019-01-20] MEDS ORDERED: PIPERACILLIN/TAZOBACTAM 4.5 GM VIAL IVPB ONE ×2 (01:31→09:53)
[2019-01-20] MEDS ORDERED: SODIUM CHLORIDE 100 ML IVPB ONE ×2 (01:31→09:54)
[2019-01-20] MEDS: NYSTATIN 500,000 UNITS/5 ML SUSPENSION PO SCH ×4 (01:36→18:37)
[2019-01-20] MEDS: HYDROCORTISONE SOD SUCCINATE 100 MG/2 ML VIAL IVPB SCH ×4 (01:51→20:40)
[2019-01-20] MEDS: INSULIN SLIDING SCALE (NOVOLOG) 1 VIAL SQ SCH ×7 (01:57→21:47)
[2019-01-20] MEDS: PIPERACILLIN/TAZOB 4.5 GM 4.5 GM in SODIUM CHLORIDE 100 ML IVPB SCH ×2 (02:34→10:13)
[2019-01-20] MEDS: FUROSEMIDE INJECTION 100 MG in SODIUM CHLORIDE 40 ML IVPB SCH (05:44)
[2019-01-20] MEDS: NOREPINEPHRINE BITARTRATE 8,000 MCG in SODIUM CHLORIDE 492 ML IV SCH (05:45)
[2019-01-20] MEDS: INSULIN (LEVEMIR) 100 UNITS/ML UNITS SQ SCH ×2 (06:04→21:47)
[2019-01-20] MEDS ORDERED: SODIUM CHLORIDE 250 ML IV PRN ×2 (06:32→14:00)
[2019-01-20 06:48] LABS: BASO % 0.2 % (0-2.0); HEMOGLOBIN 10.6 GM/dL (11.7-16.9); LYMPH % 2.7 % (8-40); MCH 32.4 pg (25.7-33.7); MCHC 35.2 g/dl (32.0-35.9); MEAN CELL VOLUME 92.1 fl (80-96); MEAN PLT VOLUME 7.4 fl (7.5-11.1); MONO % 4.8 % (3.8-10.2); NEUT % 92.3 % (42.8-82.8); PLATELET COUNT 152 K/MM3 (134-434); RBC 3.26 M/mm3 (4.00-5.60); RDW 14.3 % (11.9-15.9); WHITE BLOOD COUNT 9.2 K/mm3 (4.0-10.0)
[2019-01-20 07:31] LABS: CALCIUM 8.3 mg/dL (8.5-10.1); CREATININE 3.6 mg/dL (0.55-1.3); MAGNESIUM 2.2 mg/dL (1.8-2.4); PHOSPHOROUS 2.9 mg/dL (2.5-4.9)
[2019-01-20 07:37] LABS: POTASSIUM 2.9 mmol/L (3.5-5.1)
[2019-01-20] MEDS ORDERED: POTASSIUM CHLORIDE 20 MEQ PREMIX IVPB 100 ML IVPB ONE (07:37)
[2019-01-20] MEDS: ALBUTEROL SO4 2.5/IPRATROPIUM 0.5 INH SOL 3 ML VIAL.NEB. NEB SCH ×4 (07:40→20:50)
--- NOTE | 2019-01-20 07:43 | PN ---
<America Bravo - Last Filed: 01/20/19 14:03> Physical Exam: SUBJECTIVE: Patient seen and examined OBJECTIVE: Vital Signs Period Temp Pulse Resp BP Sys/Woodall Pulse Ox Last 24 Hr 97.2 F-98.9 F 90-168 18-26 71-197/46-155 95-100 GENERAL: The patient is awake, alert, and fully oriented, in no acute distress. HEAD: Normal with no signs of trauma. EYES: PERRL, extraocular movements intact, sclera anicteric, conjunctiva clear. No ptosis. ENT: Ears normal, nares patent, oropharynx clear without exudates, moist mucous membranes. NECK: Trachea midline, full range of motion, supple. LUNGS: Breath sounds equal, clear to auscultation bilaterally, no wheezes, no crackles, no accessory muscle use. HEART: Regular rate and rhythm, S1, S2 without murmur, rub or gallop. ABDOMEN: Soft, nontender, nondistended, normoactive bowel sounds, no guarding, no rebound, no hepatosplenomegaly, no masses. EXTREMITIES: 2+ pulses, warm, well-perfused, no edema. NEUROLOGICAL: Cranial nerves II through XII grossly intact. Normal speech, gait not observed. PSYCH: Normal mood, normal affect. SKIN: Warm, dry, normal turgor, no rashes or lesions noted Laboratory Results - last 24 hr 01/19/19 01/19/19 01/19/19 13:45 13:45 17:01 WBC RBC Hgb Hct MCV MCH MCHC RDW Plt Count MPV Absolute Neuts (auto) Neutrophils % Neutrophils % (Manual) Band Neutrophils % Lymphocytes % Lymphocytes % (Manual) Monocytes % Monocytes % (Manual) Eosinophils % Eosinophils % (Manual) Basophils % Basophils % (Manual) Myelocytes % (Man) Promyelocytes % (Man) Blast Cells % (Manual) Nucleated RBC % Metamyelocytes Hypochromia Platelet Estimate Polychromasia Poikilocytosis Anisocytosis Microcytosis Macrocytosis Sodium Potassium Chloride Carbon Dioxide Anion Gap BUN Creatinine Est GFR (CKD-EPI)AfAm Est GFR (CKD-EPI)NonAf POC Glucometer 194 Random Glucose Calcium Phosphorus Magnesium Hep Bs Antigen Negative Hep C Ab Diagnostic <0.1 01/19/19 01/20/19 01/20/19 21:03 01:55 05:30 WBC RBC Hgb Hct MCV MCH MCHC RDW Plt Count MPV Absolute Neuts (auto) Neutrophils % Neutrophils % (Manual) Band Neutrophils % Lymphocytes % Lymphocytes % (Manual) Monocytes % Monocytes % (Manual) Eosinophils % Eosinophils % (Manual) Basophils % Basophils % (Manual) Myelocytes % (Man) Promyelocytes % (Man) Blast Cells % (Manual) Nucleated RBC % Metamyelocytes Hypochromia Platelet Estimate Polychromasia Poikilocytosis Anisocytosis Microcytosis Macrocytosis Sodium 126 L Potassium 2.9 L* Chloride 88 L Carbon Dioxide 22 Anion Gap 16 BUN 53.0 H Creatinine 3.6 H Est GFR (CKD-EPI)AfAm 21.83 Est GFR (CKD-EPI)NonAf 18.83 POC Glucometer 218 171 Random Glucose 187 H Calcium 8.3 L Phosphorus 2.9 Magnesium 2.2 Hep Bs Antigen Hep C Ab Diagnostic 01/20/19 01/20/19 01/20/19 05:30 05:41 10:16 WBC 9.2 RBC 3.26 L Hgb 10.6 L Hct 30.0 L MCV 92.1 MCH 32.4 MCHC 35.2 RDW 14.3 Plt Count 152 MPV 7.4 L Absolute Neuts (auto) 8.5 H Neutrophils % 92.3 H Neutrophils % (Manual) 83.9 H Band Neutrophils % 7.1 Lymphocytes % 2.7 L Lymphocytes % (Manual) 3.0 L D Monocytes % 4.8 Monocytes % (Manual) 2 L Eosinophils % 0.0 D Eosinophils % (Manual) 0.0 D Basophils % 0.2 Basophils % (Manual) 0.0 Myelocytes % (Man) 2 D Promyelocytes % (Man) 0 Blast Cells % (Manual) 0 Nucleated RBC % 0 Metamyelocytes 2 D Hypochromia 0 Platelet Estimate Decreased Polychromasia 0 Poikilocytosis 0 Anisocytosis 0 Microcytosis 0 Macrocytosis 0 Sodium Potassium Chloride Carbon Dioxide Anion Gap BUN Creatinine Est GFR (CKD-EPI)AfAm Est GFR (CKD-EPI)NonAf POC Glucometer 178 173 Random Glucose Calcium Phosphorus Magnesium Hep Bs Antigen Hep C Ab Diagnostic Active Medications Generic Name Dose Route Start Last Admin Trade Name Freq PRN Reason Stop Dose Admin Acetaminophen 650 mg 01/14/19 14:02 Tylenol - PO Q6H PRN PAIN LEVEL 1-5 Albuterol/Ipratropium 1 amp 09/28/19 16:00 01/20/19 11:40 Duoneb - NEB 1 amp RQID PALLAVI Administration Atorvastatin Calcium 10 mg 01/14/19 22:00 01/19/19 22:38 Lipitor - PO 10 mg HS PALLAVI Administration Chlorhexidine Gluconate 1 applic 01/14/19 22:00 01/19/19 22:38 Hibiclens For Decolonization - TP 1 applic HS PALLAVI Administration Dorzolamide HCl 1 drop 01/14/19 22:00 01/20/19 10:13 Trusopt 2% OU 1 drop BID PALLAVI Administration Fludrocortisone Acetate 0.5 mg 01/21/19 10:00 Florinef - PO DAILY PALLAVI Hydrocortisone Sodium Succinate 50 mg 01/20/19 14:00 01/20/19 13:58 Solu-Cortef - IVPB 50 mg Q6H PALLAVI Administration Norepinephrine Bitartrate 8, 500 mls @ 17.83 mls/hr 01/18/19 09:30 01/20/19 05:45 000 mcg/ Sodium Chloride IV 0.09 mcg/kg/min ASDIR PALLAVI 56 mls/hr Administration Protocol 0.03 MCG/KG/MIN Furosemide 100 mg/ Sodium 50 mls @ 2.5 mls/hr 01/18/19 17:00 01/20/19 05:44 Chloride IVPB 5 mg/hr TITR PALLAVI 2.5 mls/hr Administration Protocol 5 MG/HR Sodium Chloride 250 mls @ 3,000 mls/hr 01/20/19 06:32 Normal Saline - IV 01/21/19 06:31 PRN PRN Hypotension during Dialysis Piperacillin Sod/Tazobactam 50 mls @ 100 mls/hr 01/20/19 18:00 Sod 2.25 gm/ Dextrose IVPB Q8H-IV PALLAVI Protocol Sodium Chloride 250 mls @ 3,000 mls/hr 01/20/19 14:00 Normal Saline - IV 01/21/19 14:01 PRN PRN Hypotension during Dialysis Insulin Aspart 1 vial 01/20/19 01:00 01/20/19 13:56 Novolog Vial Sliding Scale - SQ 5 units Q4HPO PALLAVI Administration Protocol Insulin Detemir 20 units 01/14/19 22:00 01/19/19 22:28 Levemir Vial SQ 20 units HS PALLAVI Administration Insulin Detemir 20 units 01/15/19 07:00 01/20/19 06:04 Levemir Vial SQ 20 units AM PALLAVI Administration Multi-Ingredient Lotion 1 applic 01/14/19 14:02 Eucerin (Large Jar) - TP BID PRN DRY SKIN Nystatin 500,000 units 01/14/19 18:00 01/20/19 13:46 Nystatin Oral Suspension - PO 500,000 units Q6HPO PALLAVI Administration Rivaroxaban 15 mg 01/19/19 18:00 01/19/19 18:15 Xarelto PO 15 mg DAILY@1800 PALLAVI Administration ASSESSMENT/PLAN: 48 yo M with PMH of morbid obesity, OHS, BONY, COPD, diastolic CHF, anemia, history of UGI bleeding, HTN, hyperthyroidism, DVTs, who was initially admitted for acute on chronic diastolic CHF. During hospital course( 01/14/19) patient was found hypotensive and lethargic, and was transferred to the ICU. Neurology:Acute toxic metabolic encephalopathy Lethargy -more arousable today Cardiology Hypervolemia 2/2 Cardiogenic shock -On Levophed drip 15 -Titrate pressors to maintain MAP >65 -Cardiology (Dr. Chowdhury)recs appreciated -Nephrology recs appreciated - vaso d/c 2/2 hyponatremia HFpEF -holding lasix -last ECHO 01/11: nondiagnostic, limited in quality. nl EF. will rpt -strict I&O -IVF gentle hydration ID: Sepsis 2/2 proteus UTI -c/w Zosyn 3.375 q8h -rpt Culture -ID (Dr. Calles)recs appreciated. Pulmonology: OHS, COPD -c/w duonebs RQID and albuterol PRN -BiPAP at night and PRN during the day; SpO2 >90%. currently saturating well on non rebreather -IV hydrocortisone 100 Q8h, Fludrocortisone PO 0.2 mg Renal: Hypervolemic hyponatremia - will assess volume status per A line pressure. -no acute indication for 3% saline is noted due to pt's mental status not impaired, continue tolvaptan if Na persistently hypo. . -trend Na q 8-12 hrs -continue Lasix IV 80mg BID MARVA -pt oliguric w/ worsening hyponatremia. cannot give 3%saline 2/2 worsening volume status -on 2.5mg lasix drip -shiley catheter placed in left IJV to undergo UF 2-2.5L. -renal/ bladder u/s no evidence of hydronephrosis or obstruction. -will continue monitor I&O and Cr Hypokalemia -repleted Heme: Hx of DVT's -continue xarelto 20mg daily Derm-> desquamated skin - doubt scalded skin syndrome - derm consult (Dr. West) appreciate recs. - continue to monitor for worsening. Endo: Hypothyroid, DM -low T4, consider repeating TFTs -Endo recs appreciated -thyroid mass, neck u/s poor study due to body habitus. -patient had head and neck surgery evaluation at [place] (Dr. Joon Waite) in 2016 and thyroidectomy recommended. head and neck re-evaluation appreciated -thyroid enlargement evident on examination, continues to show on imaging studies, per prior records prior biopsies have been negative -c/w levemir 20units bid -c/w ISS and BGM F/E/N -minimize IVF -routine bmp monitoring Prophylaxis -Xarelto PO 20mg daily Dispo -ICU for closer monitoring ATTENDING PHYSICIAN STATEMENT I saw and evaluated the patient. I reviewed the resident's note and discussed the case with the resident. I agree with the resident's findings and plan as documented. SUBJECTIVE: OBJECTIVE: ASSESSMENT AND PLAN: <Andrés Tai - Last Filed: 01/20/19 15:46> Physical Exam: SUBJECTIVE: Patient seen and examined in ICU. N OBJECTIVE: Vital Signs Period Temp Pulse Resp BP Sys/Woodall Pulse Ox Last 24 Hr 97.2 F-98.9 F 62-168 18-28 90-197/52-155 100-100 GENERAL: The patient is awake, alert, and fully oriented, in no acute distress. HEAD: Normal with no signs of trauma. EYES: PERRL, extraocular movements intact, sclera anicteric, conjunctiva clear. No ptosis. ENT: Ears normal, nares patent, oropharynx clear without exudates, moist mucous membranes. NECK: Trachea midline, full range of motion, supple. LUNGS: Breath sounds equal, clear to auscultation bilaterally, no wheezes, no crackles, no accessory muscle use. HEART: Regular rate and rhythm, S1, S2 without murmur, rub or gallop. ABDOMEN: Soft, nontender, nondistended, normoactive bowel sounds, no guarding, no rebound, no hepatosplenomegaly, no masses. EXTREMITIES: 2+ pulses, warm, well-perfused, no edema. NEUROLOGICAL: Cranial nerves II through XII grossly intact. Normal speech, gait not observed. PSYCH: Normal mood, normal affect. SKIN: Warm, dry, normal turgor, no rashes or lesions noted Laboratory Results - last 24 hr 01/19/19 01/19/19 01/19/19 05:30 05:30 05:30 WBC 10.4 H RBC 3.80 L Hgb 12.2 Hct 34.5 L MCV 90.9 MCH 32.1 MCHC 35.3 RDW 14.1 Plt Count 189 MPV 7.5 Absolute Neuts (auto) 9.7 H Neutrophils % 92.8 H Neutrophils % (Manual) 86.1 H Band Neutrophils % 6.9 Lymphocytes % 3.1 L Lymphocytes % (Manual) 1.0 L D Monocytes % 3.9 Monocytes % (Manual) 2 L Eosinophils % 0.1 D Eosinophils % (Manual) 1.0 D Basophils % 0.1 Basophils % (Manual) 0.0 Myelocytes % (Man) 0 D Promyelocytes % (Man) 0 Blast Cells % (Manual) 0 Nucleated RBC % 0 Metamyelocytes 3 H D Hypochromia 0 Platelet Estimate Normal Polychromasia 0 Poikilocytosis 0 Anisocytosis 0 Microcytosis 0 Macrocytosis 0 Sodium 121 L Potassium 3.2 L Chloride 84 L Carbon Dioxide 20 L Anion Gap 17 H BUN 44.1 H Creatinine 3.7 H Est GFR (CKD-EPI)AfAm 21.12 Est GFR (CKD-EPI)NonAf 18.22 POC Glucometer Random Glucose 138 H Calcium 8.3 L Phosphorus 3.6 Magnesium 1.7 L Total Bilirubin 0.9 AST 30 ALT 77 H Alkaline Phosphatase 111 Total Protein 4.7 L Albumin 2.3 L TSH 0.12 L D Free T4 0.49 L Hep Bs Antigen Hep C Ab Diagnostic 01/19/19 01/19/19 01/19/19 11:06 13:45 13:45 WBC RBC Hgb Hct MCV MCH MCHC RDW Plt Count MPV Absolute Neuts (auto) Neutrophils % Neutrophils % (Manual) Band Neutrophils % Lymphocytes % Lymphocytes % (Manual) Monocytes % Monocytes % (Manual) Eosinophils % Eosinophils % (Manual) Basophils % Basophils % (Manual) Myelocytes % (Man) Promyelocytes % (Man) Blast Cells % (Manual) Nucleated RBC % Metamyelocytes Hypochromia Platelet Estimate Polychromasia Poikilocytosis Anisocytosis Microcytosis Macrocytosis Sodium Potassium Chloride Carbon Dioxide Anion Gap BUN Creatinine Est GFR (CKD-EPI)AfAm Est GFR (CKD-EPI)NonAf POC Glucometer 160 Random Glucose Calcium Phosphorus Magnesium Total Bilirubin AST ALT Alkaline Phosphatase Total Protein Albumin TSH Free T4 Hep Bs Antigen Negative Hep C Ab Diagnostic <0.1 01/19/19 01/19/19 01/20/19 17:01 21:03 01:55 WBC RBC Hgb Hct MCV MCH MCHC RDW Plt Count MPV Absolute Neuts (auto) Neutrophils % Neutrophils % (Manual) Band Neutrophils % Lymphocytes % Lymphocytes % (Manual) Monocytes % Monocytes % (Manual) Eosinophils % Eosinophils % (Manual) Basophils % Basophils % (Manual) Myelocytes % (Man) Promyelocytes % (Man) Blast Cells % (Manual) Nucleated RBC % Metamyelocytes Hypochromia Platelet Estimate Polychromasia Poikilocytosis Anisocytosis Microcytosis Macrocytosis Sodium Potassium Chloride Carbon Dioxide Anion Gap BUN Creatinine Est GFR (CKD-EPI)AfAm Est GFR (CKD-EPI)NonAf POC Glucometer 194 218 171 Random Glucose Calcium Phosphorus Magnesium Total Bilirubin AST ALT Alkaline Phosphatase Total Protein Albumin TSH Free T4 Hep Bs Antigen Hep C Ab Diagnostic 01/20/19 01/20/19 01/20/19 05:30 05:30 05:41 WBC 9.2 RBC 3.26 L Hgb 10.6 L Hct 30.0 L MCV 92.1 MCH 32.4 MCHC 35.2 RDW 14.3 Plt Count 152 MPV 7.4 L Absolute Neuts (auto) 8.5 H Neutrophils % 92.3 H Neutrophils % (Manual) Band Neutrophils % Lymphocytes % 2.7 L Lymphocytes % (Manual) Monocytes % 4.8 Monocytes % (Manual) Eosinophils % 0.0 D Eosinophils % (Manual) Basophils % 0.2 Basophils % (Manual) Myelocytes % (Man) Promyelocytes % (Man) Blast Cells % (Manual) Nucleated RBC % 0 Metamyelocytes Hypochromia Platelet Estimate Polychromasia Poikilocytosis Anisocytosis Microcytosis Macrocytosis Sodium 126 L Potassium 2.9 L* Chloride 88 L Carbon Dioxide 22 Anion Gap 16 BUN 53.0 H Creatinine 3.6 H Est GFR (CKD-EPI)AfAm 21.83 Est GFR (CKD-EPI)NonAf 18.83 POC Glucometer 178 Random Glucose 187 H Calcium 8.3 L Phosphorus 2.9 Magnesium 2.2 Total Bilirubin AST ALT Alkaline Phosphatase Total Protein Albumin TSH Free T4 Hep Bs Antigen Hep C Ab Diagnostic Active Medications Generic Name Dose Route Start Last Admin Trade Name Freq PRN Reason Stop Dose Admin Acetaminophen 650 mg 01/14/19 14:02 Tylenol - PO Q6H PRN PAIN LEVEL 1-5 Albumin Human 12.5 gm 01/20/19 06:45 Albumin Human 25% IVPB 01/20/19 08:16 Q30M PALLAVI Albuterol/Ipratropium 1 amp 01/14/19 16:00 01/19/19 21:06 Duoneb - NEB 1 amp RQID PALLAVI Administration Atorvastatin Calcium 10 mg 01/14/19 22:00 01/19/19 22:38 Lipitor - PO 10 mg HS PALLAVI Administration Chlorhexidine Gluconate 1 applic 01/14/19 22:00 01/19/19 22:38 Hibiclens For Decolonization - TP 1 applic HS PALLAVI Administration Dorzolamide HCl 1 drop 01/14/19 22:00 01/19/19 22:38 Trusopt 2% OU 1 drop BID PALLAVI Administration Fludrocortisone Acetate 0.2 mg 01/16/19 11:15 01/19/19 09:30 Florinef - PO 0.2 mg DAILY PALLAVI Administration Hydrocortisone Sodium Succinate 100 mg 01/16/19 11:15 01/20/19 01:51 Solu-Cortef - IVPB 100 mg Q8H-IV PALLAVI Administration Piperacillin Sod/Tazobactam 100 mls @ 200 mls/hr 01/14/19 18:00 01/20/19 02: 34 Sod 4.5 gm/ Sodium Chloride IVPB 200 mls/hr Q8H-IV PALLAVI Administration Protocol Norepinephrine Bitartrate 8, 500 mls @ 17.83 mls/hr 01/18/19 09:30 01/20/19 05:45 000 mcg/ Sodium Chloride IV 0.09 mcg/kg/min ASDIR PALLAVI 56 mls/hr Administration Protocol 0.03 MCG/KG/MIN Furosemide 100 mg/ Sodium 50 mls @ 2.5 mls/hr 01/18/19 17:00 01/20/19 05:44 Chloride IVPB 5 mg/hr TITR PALLAVI 2.5 mls/hr Administration Protocol 5 MG/HR Sodium Chloride 250 mls @ 3,000 mls/hr 01/19/19 12:39 Normal Saline - IV 01/20/19 12:38 PRN PRN Hypotension during Dialysis Sodium Chloride 250 mls @ 3,000 mls/hr 01/19/19 12:39 Normal Saline - IV 01/20/19 12:38 PRN PRN Hypotension during Dialysis Sodium Chloride 250 mls @ 3,000 mls/hr 01/20/19 06:32 Normal Saline - IV 01/21/19 06:31 PRN PRN Hypotension during Dialysis Potassium Chloride 10 meq in 100 mls @ 100 mls/hr 01/20/19 07:45 Potassium Chloride 10 Meq Premix Ivpb - IVPB 01/20/19 10:44 Q60M [facility] Insulin Aspart 1 vial 01/20/19 01:00 01/20/19 06:04 Novolog Vial Sliding Scale - SQ 5 units Q4HPO [facility] Administration Protocol Insulin Detemir 20 units 01/14/19 22:00 01/19/19 22:28 Levemir Vial SQ 20 units HS [facility] Administration Insulin Detemir 20 units 01/15/19 07:00 01/20/19 06:04 Levemir Vial SQ 20 units AM [facility] Administration Multi-Ingredient Lotion 1 applic 01/14/19 14:02 Eucerin (Large Jar) - TP BID PRN DRY SKIN Nystatin 500,000 units 01/14/19 18:00 01/20/19 05:44 Nystatin Oral Suspension - PO Not Given Q6HPO [facility] Potassium Chloride 20 meq 01/20/19 07:37 Potassium Chloride 20 Meq Premix Ivpb - IVPB 01/20/19 07:38 ONCE ONE Rivaroxaban 15 mg 01/19/19 18:00 01/19/19 18:15 Xarelto PO 15 mg DAILY@1800 [facility] Administration ASSESSMENT/PLAN: 48 yo M with PMH of morbid obesity, OHS, BONY, COPD, diastolic CHF, anemia, history of UGI bleeding, HTN, hyperthyroidism, DVTs, who was initially admitted for acute on chronic diastolic CHF. During hospital course( 01/14/19) patient was found hypotensive and lethargic, and was transferred to the ICU. Neurology:Acute toxic metabolic encephalopathy Lethargy -more arousable today Cardiology Hypervolemia 2/2 Cardiogenic shock -On Levophed drip 15 -Titrate pressors to maintain MAP >65 -Lasix drip discontinued - Lasix 100 BID ordered HFpEF -last ECHO 01/11: nondiagnostic, limited in quality. nl EF. will rpt -strict I&O -IVF gentle hydration ID: Sepsis 2/2 proteus UTI -c/w Zosyn 3.375 q8h day 13. -ID (Dr. Calles) recs above for empiric presumable septic shock management Pulmonology: OHS, COPD -c/w duonebs RQID and albuterol PRN -BiPAP at night and PRN during the day; SpO2 >90%. currently saturating well on ventimask -IV hydrocortisone 100 Q8h, Fludrocortisone PO 0.2 mg Renal: Hypervolemic hyponatremia - will assess volume status per A line pressure. -no acute indication for 3% saline is noted due to pt's mental status not impaired, continue tolvaptan if Na persistently hypo. . -trend Na q 8-12 hrs, Na improved today. MARVA -pt oliguric w/ worsening hyponatremia. cannot give 3%saline 2/2 worsening volume status - pt underwent UF dialysis today and will get it tomorrow as well. Lasix 100BID -renal/ bladder u/s no evidence of hydronephrosis or obstruction. -will continue monitor I&O and Cr Hypokalemia -repleted Heme: Hx of DVT's -continue xarelto 20mg daily Derm-> desquamated skin - doubt scalded skin syndrome - derm consult (Dr. West) appreciate recs. - continue to monitor for worsening. Endo: Hypothyroid, DM -low T4, consider repeating TFTs -thyroid mass, neck u/s poor study due to body habitus. -patient had head and neck surgery evaluation at [place] (Dr. Joon Waite) in 2016 and thyroidectomy recommended. head and neck re-evaluation appreciated -thyroid enlargement evident on examination, continues to show on imaging studies, per prior records prior biopsies have been negative -c/w levemir 20units bid -c/w ISS and BGM F/E/N -minimize IVF -routine bmp monitoring - Roularis Brisa recs dysphagia minced and thin liquids consistency diet. Prophylaxis -Xarelto PO 20mg daily Dispo -ICU for closer monitoring ATTENDING PHYSICIAN STATEMENT I saw and evaluated the patient. I reviewed the resident's note and discussed the case with the resident. I agree with the resident's findings and plan as documented. SUBJECTIVE: OBJECTIVE: ASSESSMENT AND PLAN:
[2019-01-20] MEDS: ALBUMIN HUMAN 25% 12.5 GM/50 ML VIAL IVPB SCH ×3 (08:53→09:57)
[2019-01-20 09:45] LABS: ANISOCYTOSIS 0; MACROCYTOSIS 0; PLATELET ESTIMATE DECREASED
[2019-01-20] MEDS: FLUDROCORTISONE ACETATE 0.1 MG TABLET (FP) PO SCH (10:13)
[2019-01-20] MEDS: DORZOLAMIDE 2% HCL OPHTHALMIC SOLUTION 10 ML BOTTLE OU SCH ×2 (10:13→21:41)
--- NOTE | 2019-01-20 10:49 | PN ---
Teaching Attending Note Name of Resident: Andrés Tai ATTENDING PHYSICIAN STATEMENT I saw and evaluated the patient. I reviewed the resident's note and discussed the case with the resident. I agree with the resident's findings and plan as documented. SUBJECTIVE: Patient seen and examined in the ICU. Remains on levophed drip @ 18 mcq for presumed septic shock due to possible PNA. No other clear source. Awake and responsive on NIPPV support, 30% FiO2. Denies CP or SOB. Currently on acute HD. OBJECTIVE: Intake & Output 01/17/19 01/18/19 01/19/19 01/20/19 23:59 23:59 23:59 23:59 Intake Total 3924 3790 2552 500 Output Total 936 463 3704 2800 Balance 3524 3540 -898 -2300 Weight 347 lb 8 oz 349 lb 9 oz 354 lb 1 oz 358 lb 1.6 oz Last Vital Signs Temp Pulse Resp BP Pulse Ox 97.8 F 94 H 20 102/81 96 01/20/19 07:00 01/20/19 10:26 01/20/19 10:26 01/20/19 10:26 01/20/19 08:41 Active Medications Acetaminophen (Tylenol -) 650 mg PO Q6H PRN PRN Reason: PAIN LEVEL 1-5 Albuterol/Ipratropium (Duoneb -) 1 amp NEB RQID [facility] Last Admin: 01/20/19 07:40 Dose: 1 amp Atorvastatin Calcium (Lipitor -) 10 mg PO HS [facility] Last Admin: 01/19/19 22:38 Dose: 10 mg Chlorhexidine Gluconate (Hibiclens For Decolonization -) 1 applic TP HS [facility] Last Admin: 01/19/19 22:38 Dose: 1 applic Dorzolamide HCl (Trusopt 2%) 1 drop OU BID [facility] Last Admin: 01/20/19 10:13 Dose: 1 drop Fludrocortisone Acetate (Florinef -) 0.2 mg PO DAILY [facility] Last Admin: 01/20/19 10:13 Dose: 0.2 mg Hydrocortisone Sodium Succinate (Solu-Cortef -) 50 mg IVPB Q6H [facility] Piperacillin Sod/Tazobactam (Sod 4.5 gm/ Sodium Chloride) 100 mls @ 200 mls/hr IVPB Q8H-IV [facility]; Protocol Last Admin: 01/20/19 10:13 Dose: 200 mls/hr Norepinephrine Bitartrate 8, (000 mcg/ Sodium Chloride) 500 mls @ 17.83 mls/hr IV ASDIR [facility]; Protocol Last Admin: 01/20/19 05:45 Dose: 0.09 mcg/kg/min, 56 mls/hr Furosemide 100 mg/ Sodium (Chloride) 50 mls @ 2.5 mls/hr IVPB TITR [facility]; Protocol Last Admin: 01/20/19 05:44 Dose: 5 mg/hr, 2.5 mls/hr Sodium Chloride (Normal Saline -) 250 mls @ 3,000 mls/hr IV PRN PRN PRN Reason: Hypotension during Dialysis Stop: 01/20/19 12:38 Sodium Chloride (Normal Saline -) 250 mls @ 3,000 mls/hr IV PRN PRN PRN Reason: Hypotension during Dialysis Stop: 01/20/19 12:38 Sodium Chloride (Normal Saline -) 250 mls @ 3,000 mls/hr IV PRN PRN PRN Reason: Hypotension during Dialysis Stop: 01/21/19 06:31 Potassium Chloride (Potassium Chloride 10 Meq Premix Ivpb -) 10 meq in 100 mls @ 100 mls/hr IVPB Q60M [facility] Stop: 01/20/19 10:44 Insulin Aspart (Novolog Vial Sliding Scale -) 1 vial SQ Q4HPO [facility]; Protocol Last Admin: 01/20/19 06:04 Dose: 5 units Insulin Detemir (Levemir Vial) 20 units SQ HS [facility] Last Admin: 01/19/19 22:28 Dose: 20 units Insulin Detemir (Levemir Vial) 20 units SQ AM [facility] Last Admin: 01/20/19 06:04 Dose: 20 units Multi-Ingredient Lotion (Eucerin (Large Jar) -) 1 applic TP BID PRN PRN Reason: DRY SKIN Nystatin (Nystatin Oral Suspension -) 500,000 units PO Q6HPO [facility] Last Admin: 01/20/19 05:44 Dose: Not Given Rivaroxaban (Xarelto) 15 mg PO DAILY@1800 [facility] Last Admin: 01/19/19 18:15 Dose: 15 mg Gen:Awake and alert, Follows commands, on NIPPV support Heart: S1S2, regular Lung: distant breath sounds Abd: soft, obese Ext: + edema FISCAL OFFICER: non-focal Laboratory Results - last 24 hr 01/19/19 01/19/19 01/19/19 05:30 11:06 13:45 WBC RBC Hgb Hct MCV MCH MCHC RDW Plt Count MPV Absolute Neuts (auto) Neutrophils % Neutrophils % (Manual) 86.1 H Band Neutrophils % 6.9 Lymphocytes % Lymphocytes % (Manual) 1.0 L D Monocytes % Monocytes % (Manual) 2 L Eosinophils % Eosinophils % (Manual) 1.0 D Basophils % Basophils % (Manual) 0.0 Myelocytes % (Man) 0 D Promyelocytes % (Man) 0 Blast Cells % (Manual) 0 Nucleated RBC % Metamyelocytes 3 H D Hypochromia 0 Platelet Estimate Normal Polychromasia 0 Poikilocytosis 0 Anisocytosis 0 Microcytosis 0 Macrocytosis 0 Sodium Potassium Chloride Carbon Dioxide Anion Gap BUN Creatinine Est GFR (CKD-EPI)AfAm Est GFR (CKD-EPI)NonAf POC Glucometer 160 Random Glucose Calcium Phosphorus Magnesium Hep Bs Antigen Negative Hep C Ab Diagnostic 01/19/19 01/19/19 01/19/19 13:45 17:01 21:03 WBC RBC Hgb Hct MCV MCH MCHC RDW Plt Count MPV Absolute Neuts (auto) Neutrophils % Neutrophils % (Manual) Band Neutrophils % Lymphocytes % Lymphocytes % (Manual) Monocytes % Monocytes % (Manual) Eosinophils % Eosinophils % (Manual) Basophils % Basophils % (Manual) Myelocytes % (Man) Promyelocytes % (Man) Blast Cells % (Manual) Nucleated RBC % Metamyelocytes Hypochromia Platelet Estimate Polychromasia Poikilocytosis Anisocytosis Microcytosis Macrocytosis Sodium Potassium Chloride Carbon Dioxide Anion Gap BUN Creatinine Est GFR (CKD-EPI)AfAm Est GFR (CKD-EPI)NonAf POC Glucometer 194 218 Random Glucose Calcium Phosphorus Magnesium Hep Bs Antigen Hep C Ab Diagnostic <0.1 01/20/19 01/20/19 01/20/19 01:55 05:30 05:30 WBC 9.2 RBC 3.26 L Hgb 10.6 L Hct 30.0 L MCV 92.1 MCH 32.4 MCHC 35.2 RDW 14.3 Plt Count 152 MPV 7.4 L Absolute Neuts (auto) 8.5 H Neutrophils % 92.3 H Neutrophils % (Manual) 83.9 H Band Neutrophils % 7.1 Lymphocytes % 2.7 L Lymphocytes % (Manual) 3.0 L D Monocytes % 4.8 Monocytes % (Manual) 2 L Eosinophils % 0.0 D Eosinophils % (Manual) 0.0 D Basophils % 0.2 Basophils % (Manual) 0.0 Myelocytes % (Man) 2 D Promyelocytes % (Man) 0 Blast Cells % (Manual) 0 Nucleated RBC % 0 Metamyelocytes 2 D Hypochromia 0 Platelet Estimate Decreased Polychromasia 0 Poikilocytosis 0 Anisocytosis 0 Microcytosis 0 Macrocytosis 0 Sodium 126 L Potassium 2.9 L* Chloride 88 L Carbon Dioxide 22 Anion Gap 16 BUN 53.0 H Creatinine 3.6 H Est GFR (CKD-EPI)AfAm 21.83 Est GFR (CKD-EPI)NonAf 18.83 POC Glucometer 171 Random Glucose 187 H Calcium 8.3 L Phosphorus 2.9 Magnesium 2.2 Hep Bs Antigen Hep C Ab Diagnostic 01/20/19 01/20/19 05:41 10:16 WBC RBC Hgb Hct MCV MCH MCHC RDW Plt Count MPV Absolute Neuts (auto) Neutrophils % Neutrophils % (Manual) Band Neutrophils % Lymphocytes % Lymphocytes % (Manual) Monocytes % Monocytes % (Manual) Eosinophils % Eosinophils % (Manual) Basophils % Basophils % (Manual) Myelocytes % (Man) Promyelocytes % (Man) Blast Cells % (Manual) Nucleated RBC % Metamyelocytes Hypochromia Platelet Estimate Polychromasia Poikilocytosis Anisocytosis Microcytosis Macrocytosis Sodium Potassium Chloride Carbon Dioxide Anion Gap BUN Creatinine Est GFR (CKD-EPI)AfAm Est GFR (CKD-EPI)NonAf POC Glucometer 178 173 Random Glucose Calcium Phosphorus Magnesium Hep Bs Antigen Hep C Ab Diagnostic Problem List - Problems (1) Acute on chronic diastolic CHF (congestive heart failure) Code(s): I50.33 - ACUTE ON CHRONIC DIASTOLIC (CONGESTIVE) HEART FAILURE (2) Morbid (severe) obesity due to excess calories Code(s): E66.01 - MORBID (SEVERE) OBESITY DUE TO EXCESS CALORIES ASSESSMENT AND PLAN: Acute on Chronic Diastolic Heart Failure UTI Shock of unclear etiology Acute Kidney Injury Hyponatremia Morbid Obesity Obstructive Sleep Apnea Obesity Hypoventilation Syndrome COPD Anemia h/o DVT HTN - HD per Renal - monitor urine output, creatinine - will place HD catheter for ultrafiltration - titrate pressors to maintain MAP >65 - continue stress dose steroids - O2 to keep SpO2 >90% - inhaled bronchodilators - unable to obtain CT neck/chest due to body habitus - continue antibiotics - f/u pending cultures - NIPPV support PRN and QHS - continue anticoagulation - continue ICU monitoring - prognosis guarded Dr Arellano Critical care time spent in reviewing chart, evaluating patient and formulating plan 35 min
--- NOTE | 2019-01-20 11:34 | PN ---
Progress Note, Physician Chief Complaint: patient seen and examined in icu on NIPPv fio2 30% getting HD as well on pressors levophed drip - Current Medication List Current Medications: Active Medications Acetaminophen (Tylenol -) 650 mg PO Q6H PRN PRN Reason: PAIN LEVEL 1-5 Albuterol/Ipratropium (Duoneb -) 1 amp NEB RQID [facility] Last Admin: 01/20/19 07:40 Dose: 1 amp Atorvastatin Calcium (Lipitor -) 10 mg PO HS [facility] Last Admin: 01/19/19 22:38 Dose: 10 mg Chlorhexidine Gluconate (Hibiclens For Decolonization -) 1 applic TP HS [facility] Last Admin: 01/19/19 22:38 Dose: 1 applic Dorzolamide HCl (Trusopt 2%) 1 drop OU BID [facility] Last Admin: 01/20/19 10:13 Dose: 1 drop Fludrocortisone Acetate (Florinef -) 0.5 mg PO DAILY [facility] Hydrocortisone Sodium Succinate (Solu-Cortef -) 50 mg IVPB Q6H [facility] Piperacillin Sod/Tazobactam (Sod 4.5 gm/ Sodium Chloride) 100 mls @ 200 mls/hr IVPB Q8H-IV [facility]; Protocol Last Admin: 01/20/19 10:13 Dose: 200 mls/hr Norepinephrine Bitartrate 8, (000 mcg/ Sodium Chloride) 500 mls @ 17.83 mls/hr IV ASDIR [facility]; Protocol Last Admin: 01/20/19 05:45 Dose: 0.09 mcg/kg/min, 56 mls/hr Furosemide 100 mg/ Sodium (Chloride) 50 mls @ 2.5 mls/hr IVPB TITR [facility]; Protocol Last Admin: 01/20/19 05:44 Dose: 5 mg/hr, 2.5 mls/hr Sodium Chloride (Normal Saline -) 250 mls @ 3,000 mls/hr IV PRN PRN PRN Reason: Hypotension during Dialysis Stop: 01/20/19 12:38 Sodium Chloride (Normal Saline -) 250 mls @ 3,000 mls/hr IV PRN PRN PRN Reason: Hypotension during Dialysis Stop: 01/20/19 12:38 Sodium Chloride (Normal Saline -) 250 mls @ 3,000 mls/hr IV PRN PRN PRN Reason: Hypotension during Dialysis Stop: 01/21/19 06:31 Insulin Aspart (Novolog Vial Sliding Scale -) 1 vial SQ Q4HPO [facility]; Protocol Last Admin: 01/20/19 06:04 Dose: 5 units Insulin Detemir (Levemir Vial) 20 units SQ HS [facility] Last Admin: 01/19/19 22:28 Dose: 20 units Insulin Detemir (Levemir Vial) 20 units SQ AM [facility] Last Admin: 01/20/19 06:04 Dose: 20 units Multi-Ingredient Lotion (Eucerin (Large Jar) -) 1 applic TP BID PRN PRN Reason: DRY SKIN Nystatin (Nystatin Oral Suspension -) 500,000 units PO Q6HPO [facility] Last Admin: 01/20/19 05:44 Dose: Not Given Rivaroxaban (Xarelto) 15 mg PO DAILY@1800 [facility] Last Admin: 01/19/19 18:15 Dose: 15 mg - Objective Vital Signs: Vital Signs Temperature 97.4 F L 01/20/19 10:00 Pulse Rate 94 H 01/20/19 10:26 Respiratory Rate 20 01/20/19 10:26 Blood Pressure 102/81 01/20/19 10:26 O2 Sat by Pulse Oximetry (%) 96 01/20/19 08:41 Constitutional: Yes: Calm Neck: Yes: Thyromegaly Cardiovascular: Yes: Regular Rate and Rhythm, S1, S2 Respiratory: Yes: Diminished Gastrointestinal: Yes: Normal Bowel Sounds, Soft, Abdomen, Obese Edema: Yes Labs: CBC, BMP 01/20/19 05:30 01/20/19 05:30 INR, PTT INR 1.69 (0.83-1.09) H 01/09/19 17:55 Problem List - Problems (1) Shock Assessment/Plan: requires high dose of levophed Code(s): R57.9 - SHOCK, UNSPECIFIED (2) Acute renal insufficiency Assessment/Plan: HD/UF per renal iv lasix drip Code(s): N28.9 - DISORDER OF KIDNEY AND URETER, UNSPECIFIED (3) Hypotension Assessment/Plan: on levopphed drip monitor urine output floinef Code(s): I95.9 - HYPOTENSION, UNSPECIFIED (4) Hyponatremia Assessment/Plan: sodium 126 hypervolemia hyponatremia Code(s): E87.1 - HYPO-OSMOLALITY AND HYPONATREMIA (5) Hyperglycemia Assessment/Plan: hgAC1 noted 8.8 started on levemir bid endocrine note appreciated Code(s): R73.9 - HYPERGLYCEMIA, UNSPECIFIED (6) Acute exacerbation of chronic obstructive pulmonary disease (COPD) Assessment/Plan: stress dose steroids o2 to maintain sturation >90% biap at night and as needed in day- NIPPV Code(s): J44.1 - CHRONIC OBSTRUCTIVE PULMONARY DISEASE W (ACUTE) EXACERBATION (7) DVT of upper extremity (deep vein thrombosis) Assessment/Plan: on xarelto 15mg remove SCD Code(s): I82.629 - ACUTE EMBOLISM AND THROMBOSIS OF DEEP VN UNSP UP EXTREM (8) Thrush, oral Assessment/Plan: nystatin swish spit Code(s): B37.0 - CANDIDAL STOMATITIS (9) Hyperthyroidism Assessment/Plan: tapazole stopped euthyroid endocrine consult appreciated Code(s): E05.90 - THYROTOXICOSIS, UNSP WITHOUT THYROTOXIC CRISIS OR STORM (10) Pneumonia Assessment/Plan: zosyn Code(s): J18.9 - PNEUMONIA, UNSPECIFIED ORGANISM (11) Hearing loss Assessment/Plan: ent consult appreciate hearing aides audiology testing on discharge Code(s): H91.90 - UNSPECIFIED HEARING LOSS, UNSPECIFIED EAR (12) Thyromegaly Assessment/Plan: follow up at the [facility] with the surgeon( head nad neck surgeon) Code(s): E01.0 - IODINE-DEFICIENCY RELATED DIFFUSE (ENDEMIC) GOITER (13) HLD (hyperlipidemia) Assessment/Plan: statin Code(s): E78.5 - HYPERLIPIDEMIA, UNSPECIFIED (14) Electrolyte abnormality Assessment/Plan: repleted recheck magneisum and potassium Code(s): E87.8 - OTH DISORDERS OF ELECTROLYTE AND FLUID BALANCE, NEC (15) Hypokalemia Assessment/Plan: will replete Code(s): E87.6 - HYPOKALEMIA (16) Acute on chronic diastolic CHF (congestive heart failure) Assessment/Plan: with bilateral pleural effusion and hyoptensive on levophed levophed Code(s): I50.33 - ACUTE ON CHRONIC DIASTOLIC (CONGESTIVE) HEART FAILURE
--- NOTE | 2019-01-20 11:40 | PN ---
Progress Note, Physician History of Present Illness: LETHARGIC ON BIPAP BREATHING NON-LABORED REMAINS HYPOTENSIVE ON PRESSORS AFEBRILE WBC IMPROVED NOW WNL S/P ULTRAFILTRATION - Current Medication List Current Medications: Active Medications Acetaminophen (Tylenol -) 650 mg PO Q6H PRN PRN Reason: PAIN LEVEL 1-5 Albuterol/Ipratropium (Duoneb -) 1 amp NEB RQID [facility] Last Admin: 01/20/19 07:40 Dose: 1 amp Atorvastatin Calcium (Lipitor -) 10 mg PO HS [facility] Last Admin: 01/19/19 22:38 Dose: 10 mg Chlorhexidine Gluconate (Hibiclens For Decolonization -) 1 applic TP HS [facility] Last Admin: 01/19/19 22:38 Dose: 1 applic Dorzolamide HCl (Trusopt 2%) 1 drop OU BID [facility] Last Admin: 01/20/19 10:13 Dose: 1 drop Fludrocortisone Acetate (Florinef -) 0.5 mg PO DAILY [facility] Hydrocortisone Sodium Succinate (Solu-Cortef -) 50 mg IVPB Q6H [facility] Piperacillin Sod/Tazobactam (Sod 4.5 gm/ Sodium Chloride) 100 mls @ 200 mls/hr IVPB Q8H-IV [facility]; Protocol Last Admin: 01/20/19 10:13 Dose: 200 mls/hr Norepinephrine Bitartrate 8, (000 mcg/ Sodium Chloride) 500 mls @ 17.83 mls/hr IV ASDIR [facility]; Protocol Last Admin: 01/20/19 05:45 Dose: 0.09 mcg/kg/min, 56 mls/hr Furosemide 100 mg/ Sodium (Chloride) 50 mls @ 2.5 mls/hr IVPB TITR [facility]; Protocol Last Admin: 01/20/19 05:44 Dose: 5 mg/hr, 2.5 mls/hr Sodium Chloride (Normal Saline -) 250 mls @ 3,000 mls/hr IV PRN PRN PRN Reason: Hypotension during Dialysis Stop: 01/20/19 12:38 Sodium Chloride (Normal Saline -) 250 mls @ 3,000 mls/hr IV PRN PRN PRN Reason: Hypotension during Dialysis Stop: 01/20/19 12:38 Sodium Chloride (Normal Saline -) 250 mls @ 3,000 mls/hr IV PRN PRN PRN Reason: Hypotension during Dialysis Stop: 01/21/19 06:31 Insulin Aspart (Novolog Vial Sliding Scale -) 1 vial SQ Q4HPO [facility]; Protocol Last Admin: 01/20/19 06:04 Dose: 5 units Insulin Detemir (Levemir Vial) 20 units SQ HS [facility] Last Admin: 01/19/19 22:28 Dose: 20 units Insulin Detemir (Levemir Vial) 20 units SQ AM [facility] Last Admin: 01/20/19 06:04 Dose: 20 units Multi-Ingredient Lotion (Eucerin (Large Jar) -) 1 applic TP BID PRN PRN Reason: DRY SKIN Nystatin (Nystatin Oral Suspension -) 500,000 units PO Q6HPO [facility] Last Admin: 01/20/19 05:44 Dose: Not Given Rivaroxaban (Xarelto) 15 mg PO DAILY@1800 [facility] Last Admin: 01/19/19 18:15 Dose: 15 mg - Objective Vital Signs: Vital Signs Temperature 97.4 F L 01/20/19 10:00 Pulse Rate 94 H 01/20/19 10:26 Respiratory Rate 20 01/20/19 10:26 Blood Pressure 102/81 01/20/19 10:26 O2 Sat by Pulse Oximetry (%) 96 01/20/19 08:41 Constitutional: Yes: No Distress, Obese Cardiovascular: Yes: Regular Rate and Rhythm, S1, S2 Respiratory: Yes: Diminished Gastrointestinal: Yes: Normal Bowel Sounds, Soft. No: Tenderness Edema: Yes Labs: CBC, BMP 01/20/19 05:30 01/20/19 05:30 INR, PTT INR 1.69 (0.83-1.09) H 01/09/19 17:55 Assessment/Plan PERSISTANT HYPOTENSION ? SEPTIC SHOCK CHF COPD ? HCAP LEUKOCYTOSIS RESOLVED RENAL FAILURE MORBID OBESITY DISCUSSED WITH CRITICAL CARE IN LIGHT OF PERSISTANT HYPOTENSION, CONTINUE EMPIRIC ZOSYN DAY #11
[2019-01-20] MEDS: KCL 10 MEQ IVPB 10 MEQ/100 ML INFUS.BAG IVPB SCH ×3 (12:11→17:24)
--- NOTE | 2019-01-20 12:45 | CONSULT ---
Admitting History and Physical - Primary Care Physician PCP: Dipti Ordonez - Admission History of Present Illness: Per EMR- 48 yo M with PMH of morbid obesity, OHS, BONY, COPD, diastolic CHF, anemia, history of UGI bleeding, HTN, hyperthyroidism, DVTs, who was initially admitted for acute on chronic diastolic CHF. During hospital course( 01/14/19) patient was found hypotensive and lethargic, and was transferred to the ICU. LETHARGIC ON BIPAP BREATHING NON-LABORED REMAINS HYPOTENSIVE ON PRESSORS AFEBRILE WBC IMPROVED NOW WNL S/P ULTRAFILTRATION Seen last by me 07/20/18- Tolerating reg diet well, eating cheeseburgers, etc. Voice dysphonic. Pt was seen by ENT. MBS can not be done due to morbid obesity. No overt coughing while eating. Improving overall Pt was 346 lbs in July and is now 358 lbs. Limitations to Obtaining History: Clinical Condition - Past Medical History Cardiovascular: Yes: CHF, Deep Vein Thrombosis, HTN, Hyperlipdemia, Other ( chronic peripheral edema) Pulmonary: Yes: Asthma, COPD, O2 Dependent (3L), Pneumonia, Sleep Apnea, Other ( BONY on bipap at night) Gastrointestinal: Yes: GERD, GI Bleed (history of UGI bleed) Heme/Onc: Yes: Anemia, Hypercoaguable State (DVT RUE) Psych: Yes: Addictions Musculoskeletal: Yes: Chronic low back pain, Other (bilateral LE chronic edema and weakness) ENT: Yes: Other (left ear [place]) Endocrine: Yes: Hyperthyroidism, Other (morbid obesity thyroid goiter) Dermatology: Yes: Other (chronic bilateral venostasis) - Past Surgical History Additional Past Surgical History: (corterize abdominal bleed) - Smoking History Smoking history: Former smoker Have you smoked in the past 12 months: Yes Aproximately how many cigarettes per day: 3 If you are a former smoker, when did you quit?: 2016 (20+ pack year hx prior) - Alcohol/Substance Use Hx Alcohol Use: No History of Substance Use: reports: Cocaine - Social History ADL: Support Services (Mother moved in for some assistance) History of Recent Travel: No History - Admission Reason For Visit: MORBID OBESITY, HYPONATREMIA, PAIN OF RIGHT LOWER - Diagnostics X-ray: Report Reviewed CT Scan: Report Reviewed (soft tissue neck-4/7/19 multinodular goiter,esoph/ trach deviation to right) - General Mental Status: Awake and Alert, Able to Follow Commands, Vague, Flat Affect Attention: Distractible, Mild Impairment Ability to Follow Directions: Fair Head/Neck Control: Needs Assist - Hearing Hearing: Impaired, Left Ear Speech Evaluation - Communication Primary Language: SYRIAC Communication: Yes: Simple Responses - Speech Production Apraxia: No Able to Make Needs Known: Yes: Mildly Impaired, Moderately Impaired Intelligibility: Yes: Mildly Impaired, Moderately Impaired - Speech Characteristics Voice Loudness: Mildly Soft/Quiet Voice Pitch: Yes: Mildly Low Voice Phonatory-based Quality: Yes: Harsh Speech Pattern: Impaired Speech Clarity: < 50% Nasal Resonance: Normal Articulation: Yes: Imprecise Voice, Other Observations: Yes: Inadequate Breath Support (produces 1-2 words per breath, impaired intelligibilty) - Language/Auditory Comprehension Follows: Yes: 1 Stage Simple Commands Observation: Able to respond to yes/no queries: Yes, Yes/No Confusion: No, Comprehends Conversational Speech: Yes - Language/Verbal Expression Functional Communication Status: Yes: Mildly Impaired, Moderately Impaired - Swallow Evaluation/Bedside Assessment Current Nutritional Intake: Soft, Thin Liquids, Other (only received applesauce so far) Dentition: Yes: Adequate Facial Symmetry at Rest: Symmetrical Facial Symmetry on Retraction: Symmetrical Jaw Position: Open at Rest Against Resistance Opening: Weak Against Resistance Closing: Weak Pucker Lips: Weak Smile: Weak Lingual Movement: Symmetric Lingual Speed of Movement: Reduced Lingual Movement Strgth Against Opposition: Reduced Lingual Movement Characteristics: Normal Laryngeal Movement: Able to Palpate, Labored,delay initiation Rate of Intake: Slow/Holding (oral/pharyngeal dyscoordination) Bolus Size: Small Chewing: Impaired Oral Prep Time: Increased A-P Transit: Impaired Timing of Swallow: Delayed Coughing/Throat Clear: No Change in Voice: No Recommendations - Speech Evaluation, Impression/Plan Impression: On hi-jorge. Impaired intelligibility. Reduced breath support for speech. Harsh voice, improve from breathy quality in July. Oral pharyngeal dyscoordination, unable to sit up (40% elevation was highest he would allow) .Delayed swallow. No responsive cough. Aspiration risl with continuous drinking and choking risk at present with solids. MBS not possible due to morbid obesity. Weight gain since July. - Dysphagia Impressions/Plan Swallowing Skills: Impaired Dysphagia Impressions: Mild Impairment, Moderate Impairment, Risk of Aspiration *Silent aspiration: cannot be R/O at bedside Dysphagia Treatment Plan: Small Bites, Chin Tuck/Down, Clear Pocket Food, Trial Feedings, Safe Rate, 1/2 tsp. at a time, Elevate HOB during feed (as much as tolerated) Recommendations: Other (monitor po tolerance, especiaslly with thin liquid. If cough, congestion, nectar thick via spoon) - Recommendations Diet Consistency: Dysphagia Minced Medication Administration: Crushed with applesauce Liquids: Thin Liquids (single sips. straw ok)
--- NOTE | 2019-01-20 14:00 | PN ---
Progress Note (short form) - Note Progress Note: Renal follow up for hyponatremia Seen and examined in the ICU on High flow O2 s/p isolated UF this morning, tolerated 2L UF family at the bedside remains on levophed Vital Signs Temperature 97.4 F L 01/20/19 10:00 Pulse Rate 105 H 01/20/19 12:00 Respiratory Rate 20 01/20/19 10:26 Blood Pressure 141/88 01/20/19 12:00 O2 Sat by Pulse Oximetry (%) 95 01/20/19 11:55 Intake & Output 01/17/19 01/18/19 01/19/19 01/20/19 23:59 23:59 23:59 23:59 Intake Total 3924 3790 2552 500 Output Total 295 573 5433 2800 Balance 3524 3540 -898 -2300 Weight 157.623 kg 158.559 kg 160.6 kg 162.431 kg NAD trace LE edema CBC, BMP 01/20/19 05:30 01/20/19 05:30 Current Medications Acetaminophen (Tylenol -) 650 mg PO Q6H PRN PRN Reason: PAIN LEVEL 1-5 Albuterol/Ipratropium (Duoneb -) 1 amp NEB RQID [facility] Last Admin: 01/20/19 11:40 Dose: 1 amp Atorvastatin Calcium (Lipitor -) 10 mg PO HS [facility] Last Admin: 01/19/19 22:38 Dose: 10 mg Chlorhexidine Gluconate (Hibiclens For Decolonization -) 1 applic TP HS [facility] Last Admin: 01/19/19 22:38 Dose: 1 applic Dorzolamide HCl (Trusopt 2%) 1 drop OU BID [facility] Last Admin: 01/20/19 10:13 Dose: 1 drop Fludrocortisone Acetate (Florinef -) 0.5 mg PO DAILY [facility] Hydrocortisone Sodium Succinate (Solu-Cortef -) 50 mg IVPB Q6H [facility] Last Admin: 01/20/19 13:58 Dose: 50 mg Norepinephrine Bitartrate 8, (000 mcg/ Sodium Chloride) 500 mls @ 17.83 mls/hr IV ASDIR [facility]; Protocol Last Admin: 01/20/19 05:45 Dose: 0.09 mcg/kg/min, 56 mls/hr Furosemide 100 mg/ Sodium (Chloride) 50 mls @ 2.5 mls/hr IVPB TITR [facility]; Protocol Last Admin: 01/20/19 05:44 Dose: 5 mg/hr, 2.5 mls/hr Sodium Chloride (Normal Saline -) 250 mls @ 3,000 mls/hr IV PRN PRN PRN Reason: Hypotension during Dialysis Stop: 01/21/19 06:31 Piperacillin Sod/Tazobactam (Sod 2.25 gm/ Dextrose) 50 mls @ 100 mls/hr IVPB Q8H-IV [facility]; Protocol Insulin Aspart (Novolog Vial Sliding Scale -) 1 vial SQ Q4HPO [facility]; Protocol Last Admin: 01/20/19 13:56 Dose: 5 units Insulin Detemir (Levemir Vial) 20 units SQ HS [facility] Last Admin: 01/19/19 22:28 Dose: 20 units Insulin Detemir (Levemir Vial) 20 units SQ AM [facility] Last Admin: 01/20/19 06:04 Dose: 20 units Multi-Ingredient Lotion (Eucerin (Large Jar) -) 1 applic TP BID PRN PRN Reason: DRY SKIN Nystatin (Nystatin Oral Suspension -) 500,000 units PO Q6HPO [facility] Last Admin: 01/20/19 13:46 Dose: 500,000 units Rivaroxaban (Xarelto) 15 mg PO DAILY@1800 [facility] Last Admin: 01/19/19 18:15 Dose: 15 mg 48 year old gentleman with history of morbid obesity, COPD, BONY , diastolic heart failure, anemia, hypertension, hypothyrodism, DVT presented with back pain from the [place] and found to have hyponatremia with serum Na of 123. 1. Hypervolemic hyponatremia 2. Diastolic CHF with pleural effusions 3. Acute on chronic lower back pain 4. Morbid obesity 5. COPD/BONY 6. Hypotension/shock r/o sepsis 7. Acute renal failure secondary to sepsis 8. Hypokalemia Tolerated dialysis yesterday and UF this morning will plan for additional dialysis tomorrow Continue Lasix IV 80mg Q12h to promote urine output minimize water infusions Keep MAP > 65 Supplement K overall prognosis is poor Thank you Dennis Aldana DO
[2019-01-20] MEDS ORDERED: NOREPINEPHRINE BITARTRATE 4 MG/4 ML ML IV ONE (14:12)
[2019-01-20 14:38] LABS: BLOOD UREA NITROGEN 55.8 mg/dL (7-18); CALCIUM 8.3 mg/dL (8.5-10.1); CREATININE 3.6 mg/dL (0.55-1.3)
[2019-01-20] MEDS ORDERED: FUROSEMIDE 40 MG/4 ML INJECTABLE VIAL IVPUSH ONE (15:18)
--- NOTE | 2019-01-20 15:50 | PN ---
Physical Exam: SUBJECTIVE: Patient seen and examined in ICU. No acute events. Na improved s/p UF, will continue doing UF. OBJECTIVE: GENERAL: The patient is awake, alert, in no acute distress. NECK: swollen. LUNGS: Breath sounds equal, decreased in bases. HEART: Regular rate and rhythm, S1, S2 without murmur, rub or gallop. ABDOMEN: Soft, nontender, nondistended, normoactive bowel sounds, no guarding, no rebound. EXTREMITIES: 2+ pulses, warm, well-perfused, no edema. SKIN: skin desquamation difusely in noncompromised areas. Vital Signs Period Temp Pulse Resp BP Sys/Woodall Pulse Ox Last 24 Hr 97.2 F-98.9 F 90-168 18-24 71-197/46-155 95-100 Laboratory Results - last 24 hr 01/19/19 01/19/19 01/19/19 13:45 13:45 17:01 WBC RBC Hgb Hct MCV MCH MCHC RDW Plt Count MPV Absolute Neuts (auto) Neutrophils % Neutrophils % (Manual) Band Neutrophils % Lymphocytes % Lymphocytes % (Manual) Monocytes % Monocytes % (Manual) Eosinophils % Eosinophils % (Manual) Basophils % Basophils % (Manual) Myelocytes % (Man) Promyelocytes % (Man) Blast Cells % (Manual) Nucleated RBC % Metamyelocytes Hypochromia Platelet Estimate Polychromasia Poikilocytosis Anisocytosis Microcytosis Macrocytosis Sodium Potassium Chloride Carbon Dioxide Anion Gap BUN Creatinine Est GFR (CKD-EPI)AfAm Est GFR (CKD-EPI)NonAf POC Glucometer 194 Random Glucose Calcium Phosphorus Magnesium Hep Bs Antigen Negative Hep C Ab Diagnostic <0.1 01/19/19 01/20/19 01/20/19 21:03 01:55 05:30 WBC RBC Hgb Hct MCV MCH MCHC RDW Plt Count MPV Absolute Neuts (auto) Neutrophils % Neutrophils % (Manual) Band Neutrophils % Lymphocytes % Lymphocytes % (Manual) Monocytes % Monocytes % (Manual) Eosinophils % Eosinophils % (Manual) Basophils % Basophils % (Manual) Myelocytes % (Man) Promyelocytes % (Man) Blast Cells % (Manual) Nucleated RBC % Metamyelocytes Hypochromia Platelet Estimate Polychromasia Poikilocytosis Anisocytosis Microcytosis Macrocytosis Sodium 126 L Potassium 2.9 L* Chloride 88 L Carbon Dioxide 22 Anion Gap 16 BUN 53.0 H Creatinine 3.6 H Est GFR (CKD-EPI)AfAm 21.83 Est GFR (CKD-EPI)NonAf 18.83 POC Glucometer 218 171 Random Glucose 187 H Calcium 8.3 L Phosphorus 2.9 Magnesium 2.2 Hep Bs Antigen Hep C Ab Diagnostic 01/20/19 01/20/19 01/20/19 05:30 05:41 10:16 WBC 9.2 RBC 3.26 L Hgb 10.6 L Hct 30.0 L MCV 92.1 MCH 32.4 MCHC 35.2 RDW 14.3 Plt Count 152 MPV 7.4 L Absolute Neuts (auto) 8.5 H Neutrophils % 92.3 H Neutrophils % (Manual) 83.9 H Band Neutrophils % 7.1 Lymphocytes % 2.7 L Lymphocytes % (Manual) 3.0 L D Monocytes % 4.8 Monocytes % (Manual) 2 L Eosinophils % 0.0 D Eosinophils % (Manual) 0.0 D Basophils % 0.2 Basophils % (Manual) 0.0 Myelocytes % (Man) 2 D Promyelocytes % (Man) 0 Blast Cells % (Manual) 0 Nucleated RBC % 0 Metamyelocytes 2 D Hypochromia 0 Platelet Estimate Decreased Polychromasia 0 Poikilocytosis 0 Anisocytosis 0 Microcytosis 0 Macrocytosis 0 Sodium Potassium Chloride Carbon Dioxide Anion Gap BUN Creatinine Est GFR (CKD-EPI)AfAm Est GFR (CKD-EPI)NonAf POC Glucometer 178 173 Random Glucose Calcium Phosphorus Magnesium Hep Bs Antigen Hep C Ab Diagnostic 01/20/19 01/20/19 11:30 13:53 WBC RBC Hgb Hct MCV MCH MCHC RDW Plt Count MPV Absolute Neuts (auto) Neutrophils % Neutrophils % (Manual) Band Neutrophils % Lymphocytes % Lymphocytes % (Manual) Monocytes % Monocytes % (Manual) Eosinophils % Eosinophils % (Manual) Basophils % Basophils % (Manual) Myelocytes % (Man) Promyelocytes % (Man) Blast Cells % (Manual) Nucleated RBC % Metamyelocytes Hypochromia Platelet Estimate Polychromasia Poikilocytosis Anisocytosis Microcytosis Macrocytosis Sodium 127 L Potassium 3.0 L Chloride 90 L Carbon Dioxide 20 L Anion Gap 16 BUN 55.8 H Creatinine 3.6 H Est GFR (CKD-EPI)AfAm 21.83 Est GFR (CKD-EPI)NonAf 18.83 POC Glucometer 167 Random Glucose 177 H Calcium 8.3 L Phosphorus Magnesium Hep Bs Antigen Hep C Ab Diagnostic Active Medications Generic Name Dose Route Start Last Admin Trade Name Long PRN Reason Stop Dose Admin Acetaminophen 650 mg 01/14/19 14:02 Tylenol - PO Q6H PRN PAIN LEVEL 1-5 Albuterol/Ipratropium 1 amp 01/14/19 16:00 01/20/19 11:40 Duoneb - NEB 1 amp RQID [facility] Administration Atorvastatin Calcium 10 mg 01/14/19 22:00 01/19/19 22:38 Lipitor - PO 10 mg HS [facility] Administration Chlorhexidine Gluconate 1 applic 01/14/19 22:00 01/19/19 22:38 Hibiclens For Decolonization - TP 1 applic HS [facility] Administration Dorzolamide HCl 1 drop 01/14/19 22:00 01/20/19 10:13 Trusopt 2% OU 1 drop BID [facility] Administration Fludrocortisone Acetate 0.05 mg 01/21/19 10:00 Florinef - PO DAILY [facility] Furosemide 100 mg 01/20/19 15:45 Lasix Injection - IVPUSH BID [facility] Hydrocortisone Sodium Succinate 50 mg 01/20/19 14:00 01/20/19 13:58 Solu-Cortef - IVPB 50 mg Q6H [facility] Administration Norepinephrine Bitartrate 8, 500 mls @ 17.83 mls/hr 01/18/19 09:30 01/20/19 05:45 000 mcg/ Sodium Chloride IV 0.09 mcg/kg/min ASDIR [facility] 56 mls/hr Administration Protocol 0.03 MCG/KG/MIN Sodium Chloride 250 mls @ 3,000 mls/hr 01/20/19 06:32 Normal Saline - IV 01/21/19 06:31 PRN PRN Hypotension during Dialysis Piperacillin Sod/Tazobactam 50 mls @ 100 mls/hr 01/20/19 18:00 Sod 2.25 gm/ Dextrose IVPB Q8H-IV [facility] Protocol Sodium Chloride 250 mls @ 3,000 mls/hr 01/20/19 14:00 Normal Saline - IV 01/21/19 14:01 PRN PRN Hypotension during Dialysis Insulin Aspart 1 vial 01/20/19 01:00 01/20/19 13:56 Novolog Vial Sliding Scale - SQ 5 units Q4HPO [facility] Administration Protocol Insulin Detemir 20 units 01/14/19 22:00 01/19/19 22:28 Levemir Vial SQ 20 units HS [facility] Administration Insulin Detemir 20 units 01/15/19 07:00 01/20/19 06:04 Levemir Vial SQ 20 units AM [facility] Administration Multi-Ingredient Lotion 1 applic 01/14/19 14:02 Eucerin (Large Jar) - TP BID PRN DRY SKIN Nystatin 500,000 units 01/14/19 18:00 01/20/19 13:46 Nystatin Oral Suspension - PO 500,000 units Q6HPO [facility] Administration Rivaroxaban 15 mg 01/19/19 18:00 01/19/19 18:15 Xarelto PO 15 mg DAILY@1800 [facility] Administration ASSESSMENT/PLAN: 48 yo M with PMH of morbid obesity, OHS, BONY, COPD, diastolic CHF, anemia, history of UGI bleeding, HTN, hyperthyroidism, DVTs, who was initially admitted for acute on chronic diastolic CHF. During hospital course( 01/14/19) patient was found hypotensive and lethargic, and was transferred to the ICU. Neurology:Acute toxic metabolic encephalopathy Lethargy -more arousable today Cardiology Hypervolemia 2/2 Cardiogenic shock -On Levophed drip 15 -Titrate pressors to maintain MAP >65 -Cardiology (Dr. Chowdhury)recs appreciated - can start vaso if MAP drops s/p Lasix. HFpEF -holding lasix -last ECHO 01/11: nondiagnostic, limited in quality. nl EF. will rpt -strict I&O - minimize water infusions ID: Sepsis 2/2 proteus UTI -c/w Zosyn 3.375 q8h -ID (Dr. Calles)recs Pulmonology: OHS, COPD -c/w duonebs RQID and albuterol PRN -BiPAP at night and PRN during the day; SpO2 >90%. currently saturating well on non rebreather - switched to IV hydrocortisone 50 Q6h, Fludrocortisone PO 0.05 mg Renal: Hypervolemic hyponatremia - will assess volume status per A line pressure. -no acute indication for 3% saline is noted due to pt's mental status not impaired, continue tolvaptan if Na persistently hypo. . -trend Na q 8-12 hrs MARVA -pt oliguric w/ worsening hyponatremia. cannot give 3%saline 2/2 worsening volume status - off lasix drip, c/w lasix 100 BID to help improve UO. - UF done yesterday and tomorrow will continue UF, improved sodium today good response to UF. -renal/ bladder u/s no evidence of hydronephrosis or obstruction. -will continue monitor I&O and Cr Hypokalemia -repleted Heme: Hx of DVT's -continue xarelto 20mg daily Derm-> desquamated skin - doubt scalded skin syndrome - derm consult (Dr. West) appreciate recs. - continue to monitor for worsening. Endo: Hypothyroid, DM -low T4, consider repeating TFTs -Endo recs appreciated -thyroid mass, neck u/s poor study due to body habitus. -patient had head and neck surgery evaluation at [place] (Dr. Joon Waite) in 2016 and thyroidectomy recommended. head and neck re-evaluation appreciated -thyroid enlargement evident on examination, continues to show on imaging studies, per prior records prior biopsies have been negative -c/w levemir 20units bid -c/w ISS and BGM F/E/N -minimize IVF -routine bmp monitoring - Ban Ledezma recs dysphagia minced diet with thin liquids. Prophylaxis -Xarelto PO 20mg daily Dispo -ICU for closer monitoring Visit type - Emergency Visit Emergency Visit: Yes ED Registration Date: 01/09/19 Care time: The patient presented to the Emergency Department on the above date and was hospitalized for further evaluation of their emergent condition. - New Patient This patient is new to me today: No - Critical Care Critical Care patient: Yes Total Critical Care Time (in minutes): 40 Critical Care Statement: The care of this patient involved high complexity decision making to prevent further life threatening deterioration of the patient 's condition and/or to evaluate & treat vital organ system(s) failure or risk of failure. - Discharge Referral Referred to [facility] No ATTENDING PHYSICIAN STATEMENT I saw and evaluated the patient. I reviewed the resident's note and discussed the case with the resident. I agree with the resident's findings and plan as documented. SUBJECTIVE: OBJECTIVE: ASSESSMENT AND PLAN:
--- NOTE | 2019-01-20 16:17 | CONSULT ---
Consult - text type - Consultation Consultation Note: Dermatology Called to see patient to r/o bullous Dermatitis. On exam patient has large bullae on medial malleolus of both LE. The legs are edematous and the patient is bed bound and obese. The Bullae are due to edema and stasis dermatitis. There is no sign of a autoimmune bullous skin disease. Please continue wound care in the areas of desquamation and blistering . Discussed with patients nurse. Thank You.
[2019-01-20] MEDS: FUROSEMIDE 100 MG/10 ML INJECTABLE VIAL IVPB SCH (17:24)
[2019-01-20] MEDS ORDERED: PIPERACILLIN/TAZOBACTAM 2.25 GM VIAL IVPB ONE (18:33)
[2019-01-20] MEDS ORDERED: DEXTROSE 5%-WATER - 50 ML IVPB ONE (18:33)
[2019-01-20] MEDS: RIVAROXABAN 15 MG TABLET PO SCH (18:37)
[2019-01-20] MEDS: PIPERACILLIN/TAZOB 2.25 GM 2.25 GM in DEXTROSE 5%-WATER - 50 ML IVPB SCH (18:37)
[2019-01-20] MEDS: CHLORHEXIDINE GLUCONATE 4% CLEANSER FOR DECOLONIZATION TP SCH (21:41)
[2019-01-20] MEDS: ATORVASTATIN CA 10 MG TABLET (FP) PO SCH (21:41)
--- NOTE | 2019-01-20 22:33 | PN ---
Progress Note, Physician Chief Complaint: Pt on Bipap; lethargic. History of Present Illness: 48-year-old black male from [place], with a past medical history of morbid obesity, COPD, diastolic CHF, hypertension, hyperlipidemia, hypothyroidism, sleep apnea, and s/p DVT (-->rivaroxaban) who is maintained on 3 L oxygen nasal cannula Medical history significant for acute on chronic respiratory failure with hypoxia and hypercapnea, previous intubations, pneumonia, DVT, glaucoma, hyperlipidemia, hypertension. - Current Medication List Current Medications: Active Medications Acetaminophen (Tylenol -) 650 mg PO Q6H PRN PRN Reason: PAIN LEVEL 1-5 Albuterol/Ipratropium (Duoneb -) 1 amp NEB RQID [facility] Last Admin: 01/20/19 20:50 Dose: 1 amp Atorvastatin Calcium (Lipitor -) 10 mg PO HS [facility] Last Admin: 01/20/19 21:41 Dose: 10 mg Chlorhexidine Gluconate (Hibiclens For Decolonization -) 1 applic TP HS [facility] Last Admin: 01/20/19 21:41 Dose: 1 applic Dorzolamide HCl (Trusopt 2%) 1 drop OU BID [facility] Last Admin: 01/20/19 21:41 Dose: 1 drop Fludrocortisone Acetate (Florinef -) 0.05 mg PO DAILY [facility] Furosemide (Lasix Injection -) 100 mg IVPB BIDLASIX [facility] Last Admin: 01/20/19 17:24 Dose: 100 mg Hydrocortisone Sodium Succinate (Solu-Cortef -) 50 mg IVPB Q6H [facility] Last Admin: 01/20/19 20:40 Dose: 50 mg Norepinephrine Bitartrate 8, (000 mcg/ Sodium Chloride) 500 mls @ 17.83 mls/hr IV ASDIR [facility]; Protocol Last Admin: 01/20/19 05:45 Dose: 0.09 mcg/kg/min, 56 mls/hr Sodium Chloride (Normal Saline -) 250 mls @ 3,000 mls/hr IV PRN PRN PRN Reason: Hypotension during Dialysis Stop: 01/21/19 06:31 Piperacillin Sod/Tazobactam (Sod 2.25 gm/ Dextrose) 50 mls @ 100 mls/hr IVPB Q8H-IV [facility]; Protocol Last Admin: 01/20/19 18:37 Dose: 100 mls/hr Sodium Chloride (Normal Saline -) 250 mls @ 3,000 mls/hr IV PRN PRN PRN Reason: Hypotension during Dialysis Stop: 01/21/19 14:01 Insulin Aspart (Novolog Vial Sliding Scale -) 1 vial SQ Q4HPO [facility]; Protocol Last Admin: 01/20/19 21:47 Dose: 5 units Insulin Detemir (Levemir Vial) 20 units SQ HS [facility] Last Admin: 01/20/19 21:47 Dose: 20 units Insulin Detemir (Levemir Vial) 20 units SQ AM [facility] Last Admin: 01/20/19 06:04 Dose: 20 units Multi-Ingredient Lotion (Eucerin (Large Jar) -) 1 applic TP BID PRN PRN Reason: DRY SKIN Nystatin (Nystatin Oral Suspension -) 500,000 units PO Q6HPO [facility] Last Admin: 01/20/19 18:37 Dose: 500,000 units Rivaroxaban (Xarelto) 15 mg PO DAILY@1800 [facility] Last Admin: 01/20/19 18:37 Dose: 15 mg - Objective Vital Signs: Vital Signs Temperature 97.8 F 01/20/19 20:00 Pulse Rate 108 H 01/20/19 22:00 Respiratory Rate 20 01/20/19 22:00 Blood Pressure 98/61 01/20/19 22:00 O2 Sat by Pulse Oximetry (%) 96 01/20/19 21:41 Constitutional: Yes: Obese Eyes: Yes: WNL HENT: Yes: Nasal Congestion Neck: Yes: Decreased ROM Cardiovascular: Yes: S1, S2 Respiratory: Yes: Diminished, On BiPap, SOB, Tachypnea Gastrointestinal: Yes: Abdomen, Obese Genitourinary: No: Anuria Breast(s): Yes: Skin Changes (excoriations under breasts, with exfoliation) Musculoskeletal: Yes: Back Pain, Joint Stiffness, Joint Swelling, Muscle Weakness Extremities: Yes: Cool, Other Edema: Yes Peripheral Pulses WNL: Yes Integumentary: Yes: Skin Tear, Venous Stasis Changes (large blisters on LEs) Psychiatric: Yes: Alert Labs: CBC, BMP 01/20/19 05:30 01/20/19 11:30 INR, PTT INR 1.69 (0.83-1.09) H 01/09/19 17:55 - ....Imaging Chest X-ray: Image Reviewed Other: Image Reviewed (NSR; periods of sinus tachycardia) Problem List - Problems (1) Acute exacerbation of chronic obstructive pulmonary disease (COPD) Assessment/Plan: On Bipap. bronchodilators, O2 per information writer. Code(s): J44.1 - CHRONIC OBSTRUCTIVE PULMONARY DISEASE W (ACUTE) EXACERBATION (2) Hyponatremia Assessment/Plan: Please see under "CHF". Code(s): E87.1 - HYPO-OSMOLALITY AND HYPONATREMIA (3) Morbid obesity Code(s): E66.01 - MORBID (SEVERE) OBESITY DUE TO EXCESS CALORIES (4) Acute on chronic diastolic CHF (congestive heart failure) Code(s): I50.33 - ACUTE ON CHRONIC DIASTOLIC (CONGESTIVE) HEART FAILURE (5) Acute on chronic respiratory failure with hypoxia and hypercapnia Assessment/Plan: On Bipap. Tachypneic. Now on norepinephrine for hypotension; oliguric, with worsening renal dysfunction and hyponatremia. Code(s): J96.21 - ACUTE AND CHRONIC RESPIRATORY FAILURE WITH HYPOXIA; J96.22 - ACUTE AND CHRONIC RESPIRATORY FAILURE WITH HYPERCAPNIA (6) Bilateral lower extremity edema Assessment/Plan: blistered LEs. Hypotension; on norepinephrine, making use of diuretics problematic. Code(s): R60.0 - LOCALIZED EDEMA (7) Depression Code(s): F32.9 - MAJOR DEPRESSIVE DISORDER, SINGLE EPISODE, UNSPECIFIED (8) [place] cardiac risk >20% in next 10 years Assessment/Plan: Stress MIBI 12/2016: no ischemia. Keep lipids aggressively controlled with diet, statin. Code(s): Z91.89 - OTH PERSONAL RISK FACTORS, NOT ELSEWHERE CLASSIFIED (9) HTN (hypertension) Assessment/Plan: Medications (lisinopril; furosemide) held due to hypotension. Preently on IV norepinephrine. Code(s): I10 - ESSENTIAL (PRIMARY) HYPERTENSION (10) Hx of deep venous thrombosis Code(s): Z86.718 - PERSONAL HISTORY OF OTHER VENOUS THROMBOSIS AND EMBOLISM (11) Hyperlipidemia Assessment/Plan: statin. Code(s): E78.5 - HYPERLIPIDEMIA, UNSPECIFIED (12) Moderate to severe pulmonary hypertension Code(s): I27.2 - OTHER SECONDARY PULMONARY HYPERTENSION * DO NOT USE * (13) Obstructive apnea Assessment/Plan: pressure-support oxygenation per information writer. Code(s): G47.33 - OBSTRUCTIVE SLEEP APNEA (ADULT) (PEDIATRIC) (14) Diabetes Assessment/Plan: Restart ACEI if BP, eletrolytes stabilize. Code(s): E11.9 - TYPE 2 DIABETES MELLITUS WITHOUT COMPLICATIONS (15) Hyperthyroidism Assessment/Plan: low free T4. F/u with edger machine setter. Code(s): E05.90 - THYROTOXICOSIS, UNSP WITHOUT THYROTOXIC CRISIS OR STORM (16) Acute renal insufficiency Assessment/Plan: Cr since admission 0.7-->2.9 (BUN 23-->29.7); oliguric despite IV fluids; worsening hyponatremia. As discussed with chute feeder, trial of IV furosemide. F/u BUn/Cr, Is and Os, electrolytes. Code(s): N28.9 - DISORDER OF KIDNEY AND URETER, UNSPECIFIED (17) Shock Assessment/Plan: elevated WBCs since admission. acute renal failure, with hyponatremia, oliguria. Hypotension-->IV norepinephrine. f/u TNI. On antibiotics per ID. Code(s): R57.9 - SHOCK, UNSPECIFIED Assessment/Plan CCU time spent: 35 minutes.
[2019-01-21] MEDS: NYSTATIN 500,000 UNITS/5 ML SUSPENSION PO SCH ×4 (01:23→18:28)
[2019-01-21] MEDS ORDERED: PIPERACILLIN/TAZOBACTAM 2.25 GM VIAL IVPB ONE ×3 (01:38→18:19)
[2019-01-21] MEDS ORDERED: DEXTROSE 5%-WATER - 50 ML IVPB ONE ×3 (01:38→18:19)
[2019-01-21] MEDS: INSULIN SLIDING SCALE (NOVOLOG) 1 VIAL SQ SCH ×6 (01:41→22:00)
[2019-01-21] MEDS: HYDROCORTISONE SOD SUCCINATE 100 MG/2 ML VIAL IVPB SCH ×4 (01:41→20:00)
[2019-01-21] MEDS: PIPERACILLIN/TAZOB 2.25 GM 2.25 GM in DEXTROSE 5%-WATER - 50 ML IVPB SCH ×3 (02:06→18:25)
[2019-01-21] MEDS: NOREPINEPHRINE BITARTRATE 8,000 MCG in SODIUM CHLORIDE 492 ML IV SCH ×4 (03:30→18:25)
--- NOTE | 2019-01-21 05:34 | PN ---
Progress Note, Physician Chief Complaint: Pt on Bipap; now undergoing hemodialysis. More alert; denies chest pain, dyspnea , LE pain. History of Present Illness: Pt is a 48-year-old black male from retirement, with a past medical history of morbid obesity, COPD, diastolic CHF, sedentary, hypertension, hyperlipidemia , hypothyroidism,sleep apnea, and s/p DVT (-->rivaroxaban) who is maintained on 3 L oxygen nasal cannula Medical history significant for acute on chronic respiratory failure with hypoxia and hypercapnea, previous intubations, pneumonia, DVT, glaucoma, hyperlipidemia, hypertension. Pt has spoken multiple times over the past several years of planning to undergo gastric bypass surgery; he says he is working with the team at [facility]. - Current Medication List Current Medications: Active Medications Acetaminophen (Tylenol -) 650 mg PO Q6H PRN PRN Reason: PAIN LEVEL 1-5 Albuterol/Ipratropium (Duoneb -) 1 amp NEB RQID [facility] Last Admin: 01/20/19 20:50 Dose: 1 amp Atorvastatin Calcium (Lipitor -) 10 mg PO HS [facility] Last Admin: 01/20/19 21:41 Dose: 10 mg Chlorhexidine Gluconate (Hibiclens For Decolonization -) 1 applic TP HS [facility] Last Admin: 01/20/19 21:41 Dose: 1 applic Dorzolamide HCl (Trusopt 2%) 1 drop OU BID [facility] Last Admin: 01/20/19 21:41 Dose: 1 drop Fludrocortisone Acetate (Florinef -) 0.05 mg PO DAILY [facility] Furosemide (Lasix Injection -) 100 mg IVPB BIDLASIX [facility] Last Admin: 01/20/19 17:24 Dose: 100 mg Hydrocortisone Sodium Succinate (Solu-Cortef -) 50 mg IVPB Q6H [facility] Last Admin: 01/21/19 01:41 Dose: 50 mg Norepinephrine Bitartrate 8, (000 mcg/ Sodium Chloride) 500 mls @ 17.83 mls/hr IV ASDIR [facility]; Protocol Last Admin: 01/20/19 05:45 Dose: 0.09 mcg/kg/min, 56 mls/hr Sodium Chloride (Normal Saline -) 250 mls @ 3,000 mls/hr IV PRN PRN PRN Reason: Hypotension during Dialysis Stop: 01/21/19 06:31 Piperacillin Sod/Tazobactam (Sod 2.25 gm/ Dextrose) 50 mls @ 100 mls/hr IVPB Q8H-IV [facility]; Protocol Last Admin: 01/21/19 02:06 Dose: 100 mls/hr Sodium Chloride (Normal Saline -) 250 mls @ 3,000 mls/hr IV PRN PRN PRN Reason: Hypotension during Dialysis Stop: 01/21/19 14:01 Insulin Aspart (Novolog Vial Sliding Scale -) 1 vial SQ Q4HPO [facility]; Protocol Last Admin: 01/21/19 01:41 Dose: 5 units Insulin Detemir (Levemir Vial) 20 units SQ HS [facility] Last Admin: 01/20/19 21:47 Dose: 20 units Insulin Detemir (Levemir Vial) 20 units SQ AM [facility] Last Admin: 01/20/19 06:04 Dose: 20 units Multi-Ingredient Lotion (Eucerin (Large Jar) -) 1 applic TP BID PRN PRN Reason: DRY SKIN Nystatin (Nystatin Oral Suspension -) 500,000 units PO Q6HPO [facility] Last Admin: 01/21/19 01:23 Dose: Not Given Rivaroxaban (Xarelto) 15 mg PO DAILY@1800 [facility] Last Admin: 01/20/19 18:37 Dose: 15 mg - Objective Vital Signs: Vital Signs Temperature 98.0 F 01/21/19 02:00 Pulse Rate 107 H 01/21/19 02:00 Respiratory Rate 20 01/21/19 02:00 Blood Pressure 99/61 01/21/19 02:00 O2 Sat by Pulse Oximetry (%) 94 L 01/21/19 04:33 Constitutional: Yes: Calm, Obese Eyes: Yes: WNL HENT: Yes: Other Neck: Yes: Decreased ROM, Other (large jowels, thick neck make examining for JVD , doing procedures or tests nearly impossible) Respiratory: Yes: Diminished, On BiPap, SOB on Exertion, Tachypnea Gastrointestinal: Yes: Abdomen, Obese Genitourinary: Yes: Anuria, Aguilera Present, Other (now on hemodialysis) Breast(s): Yes: Gynecomastia, Skin Changes Extremities: Yes: Cool, Other Edema: Yes Edema: LLE: 2+, RLE: 2+ (blisters, some open, with skin tears) Peripheral Pulses WNL: No Peripheral Pulses: Left Doralis Pedis: 1+, Right Dorsalis Pedis: 1+ Integumentary: Yes: Skin Tear, Venous Stasis Changes, Other Wound/Incision: Yes: Open to air Neurological: Yes: Alert, Weakness Psychiatric: Yes: Other (anxiety/depression) Labs: CBC, BMP 01/20/19 05:30 01/20/19 11:30 INR, PTT INR 1.69 (0.83-1.09) H 01/09/19 17:55 - ....Imaging Chest X-ray: Image Reviewed Other: Image Reviewed Problem List - Problems (1) Acute exacerbation of chronic obstructive pulmonary disease (COPD) Assessment/Plan: remains on Bipap. bronchodilators, O2, steroids per yarn weight and strength tester. Code(s): J44.1 - CHRONIC OBSTRUCTIVE PULMONARY DISEASE W (ACUTE) EXACERBATION (2) Hyponatremia Assessment/Plan: Improving to 126 today; f/u post-hemodialysis. Code(s): E87.1 - HYPO-OSMOLALITY AND HYPONATREMIA (3) Morbid obesity Code(s): E66.01 - MORBID (SEVERE) OBESITY DUE TO EXCESS CALORIES (4) Acute on chronic diastolic CHF (congestive heart failure) Code(s): I50.33 - ACUTE ON CHRONIC DIASTOLIC (CONGESTIVE) HEART FAILURE (5) Acute on chronic respiratory failure with hypoxia and hypercapnia Code(s): J96.21 - ACUTE AND CHRONIC RESPIRATORY FAILURE WITH HYPOXIA; J96.22 - ACUTE AND CHRONIC RESPIRATORY FAILURE WITH HYPERCAPNIA (6) Bilateral lower extremity edema Code(s): R60.0 - LOCALIZED EDEMA (7) Depression Code(s): F32.9 - MAJOR DEPRESSIVE DISORDER, SINGLE EPISODE, UNSPECIFIED (8) [place] cardiac risk >20% in next 10 years Code(s): Z91.89 - [facility] PERSONAL RISK FACTORS, NOT ELSEWHERE CLASSIFIED (9) HTN (hypertension) Code(s): I10 - ESSENTIAL (PRIMARY) HYPERTENSION (10) Hx of deep venous thrombosis Code(s): Z86.718 - PERSONAL HISTORY OF OTHER VENOUS THROMBOSIS AND EMBOLISM (11) Hyperlipidemia Code(s): E78.5 - HYPERLIPIDEMIA, UNSPECIFIED (12) Moderate to severe pulmonary hypertension Code(s): I27.2 - OTHER SECONDARY PULMONARY HYPERTENSION * DO NOT USE * (13) Obstructive apnea Code(s): G47.33 - OBSTRUCTIVE SLEEP APNEA (ADULT) (PEDIATRIC) (14) Diabetes Code(s): E11.9 - TYPE 2 DIABETES MELLITUS WITHOUT COMPLICATIONS (15) Hyperthyroidism Assessment/Plan: low free T4. F/u with director digital advertising. Code(s): E05.90 - THYROTOXICOSIS, UNSP WITHOUT THYROTOXIC CRISIS OR STORM (16) Acute renal insufficiency Assessment/Plan: Cr since admission 0.7-->2.9 (BUN 23-->29.7); oliguric despite IV fluids; worsening hyponatremia. Now on hemodialysis. F/u BUn/Cr, Is and Os, electrolytes (presently hypokalemic and hyponatremic). Code(s): N28.9 - DISORDER OF KIDNEY AND URETER, UNSPECIFIED (17) Shock Assessment/Plan: elevated WBCs since admission; afebrile. Likely septic origin. acute renal failure, with hyponatremia, oliguria. Acute/chronic diastolic CHF. Hypotension-->IV norepinephrine. Sinus tachycardia. Hx DVT: on anticoagulation. f/u TNI. On antibiotics per ID. Code(s): R57.9 - SHOCK, UNSPECIFIED (18) Hypokalemia Assessment/Plan: Keep K 4-4.5 Keep Mg 2-2.4 Keep PO4 2.5-4.9 Low Na is improving; f/u post-HD Code(s): E87.6 - HYPOKALEMIA (19) DVT (deep venous thrombosis) Assessment/Plan: Continue anticoagulation. Code(s): I82.409 - ACUTE EMBOLISM AND THOMBOS UNSP DEEP VN UNSP LOWER EXTREMITY Assessment/Plan CCU time spent: 35 minutes
[2019-01-21 05:51] LABS: BASO % 0.3 % (0-2.0); HEMATOCRIT 29.9 % (35.4-49); HEMOGLOBIN 10.4 GM/dL (11.7-16.9); LYMPH % 3.9 % (8-40); MCH 32.5 pg (25.7-33.7); MCHC 34.8 g/dl (32.0-35.9); MEAN CELL VOLUME 93.6 fl (80-96); MEAN PLT VOLUME 7.2 fl (7.5-11.1); MONO % 4.1 % (3.8-10.2); NEUT % 91.7 % (42.8-82.8); PLATELET COUNT 139 K/MM3 (134-434); RDW 14.4 % (11.9-15.9)
[2019-01-21 06:22] LABS: ALBUMIN 2.2 g/dl (3.4-5.0); BILIRUBIN,TOTAL 0.5 mg/dL (0.2-1); BLOOD UREA NITROGEN 66.3 mg/dL (7-18); CALCIUM 8.3 mg/dL (8.5-10.1); POTASSIUM 3.5 mmol/L (3.5-5.1); TOT PROT 4.5 g/dl (6.4-8.2)
[2019-01-21 06:42] LABS: ARTERIAL BLD GAS O2 SATURATION 90.4 % (95-98); ARTERIAL BLOOD GAS PCO2 37.1 mmHg (35-45); ARTERIAL BLOOD GAS PO2 63.3 mmHg (80-100); ARTERIAL BLOOD GAS pH 7.29 (7.35-7.45)
[2019-01-21 06:45] LABS: ALLENS TEST POSITIVE
[2019-01-21] MEDS: INSULIN (LEVEMIR) 100 UNITS/ML UNITS SQ SCH ×2 (06:46→22:00)
[2019-01-21] MEDS: FUROSEMIDE 100 MG/10 ML INJECTABLE VIAL IVPB SCH ×2 (06:46→17:21)
[2019-01-21] MEDS: ALBUTEROL SO4 2.5/IPRATROPIUM 0.5 INH SOL 3 ML VIAL.NEB. NEB SCH ×4 (07:40→20:30)
--- NOTE | 2019-01-21 07:59 | PN ---
Progress Note (short form) - Note Progress Note: RENAL coverage for Dr Aldana Pt is currently on hemodialysis his bp has been low and he is on pressors Last Vital Signs Temp Pulse Resp BP Pulse Ox 97.9 F 104 H 23 H 102/49 L 94 L 01/21/19 06:00 01/21/19 06:00 01/21/19 06:00 01/21/19 06:00 01/21/19 04:33 lungs decreased breath sounds on left cvs s1s2 rr abd soft, obese ext +edema neuro appears sedated CBC, BMP 01/21/19 05:20 01/21/19 05:20 Current Medications Generic Name Dose Route Start Last Admin Trade Name Freq PRN Reason Stop Dose Admin Acetaminophen 650 mg 01/14/19 14:02 Tylenol - PO Q6H PRN PAIN LEVEL 1-5 Albuterol/Ipratropium 1 amp 01/14/19 16:00 01/20/19 20:50 Duoneb - NEB 1 amp RQID [facility] Administration Atorvastatin Calcium 10 mg 01/14/19 22:00 01/20/19 21:41 Lipitor - PO 10 mg HS [facility] Administration Chlorhexidine Gluconate 1 applic 01/14/19 22:00 01/20/19 21:41 Hibiclens For Decolonization - TP 1 applic HS [facility] Administration Dorzolamide HCl 1 drop 01/14/19 22:00 01/20/19 21:41 Trusopt 2% OU 1 drop BID [facility] Administration Fludrocortisone Acetate 0.05 mg 01/21/19 10:00 Florinef - PO DAILY [facility] Furosemide 100 mg 01/20/19 15:45 01/21/19 06:46 Lasix Injection - IVPB 100 mg BIDLASIX [facility] Administration Hydrocortisone Sodium Succinate 50 mg 01/20/19 14:00 01/21/19 01:41 Solu-Cortef - IVPB 50 mg Q6H [facility] Administration Norepinephrine Bitartrate 8, 500 mls @ 17.83 mls/hr 01/18/19 09:30 01/21/19 06:45 000 mcg/ Sodium Chloride IV Not Given ASDIR [facility] Protocol 0.03 MCG/KG/MIN Piperacillin Sod/Tazobactam 50 mls @ 100 mls/hr 01/20/19 18:00 01/21/19 02:06 Sod 2.25 gm/ Dextrose IVPB 100 mls/hr Q8H-IV [facility] Administration Protocol Sodium Chloride 250 mls @ 3,000 mls/hr 01/20/19 14:00 Normal Saline - IV 01/21/19 14:01 PRN PRN Hypotension during Dialysis Insulin Aspart 1 vial 01/20/19 01:00 01/21/19 06:46 Novolog Vial Sliding Scale - SQ Not Given Q4HPO [facility] Protocol Insulin Detemir 20 units 01/14/19 22:00 01/20/19 21:47 Levemir Vial SQ 20 units HS [facility] Administration Insulin Detemir 20 units 01/15/19 07:00 01/21/19 06:46 Levemir Vial SQ 20 units AM [facility] Administration Multi-Ingredient Lotion 1 applic 01/14/19 14:02 Eucerin (Large Jar) - TP BID PRN DRY SKIN Nystatin 500,000 units 01/14/19 18:00 01/21/19 06:46 Nystatin Oral Suspension - PO 500,000 units Q6HPO [facility] Administration Rivaroxaban 15 mg 01/19/19 18:00 01/20/19 18:37 Xarelto PO 15 mg DAILY@1800 [facility] Administration 48 year old gentleman with history of morbid obesity, COPD, BONY , diastolic heart failure, anemia, hypertension, hypothyrodism, DVT presented with back pain from the [place] and found to have hyponatremia with serum Na of 123. 1. Hypervolemic hyponatremia 2. Diastolic CHF with pleural effusions 3. Acute on chronic lower back pain 4. Morbid obesity 5. COPD/BONY 6. Hypotension/shock r/o sepsis 7. Acute renal failure secondary to sepsis 8. Hypokalemia We're attempting HD but he is very hypotensive. May only be able to do clearance without uf. This may help his hyponatremia Would repeat echo, recent one was non diagnostic. Need to evaluate for right ventricular collapse continue anticoagulation MV
--- NOTE | 2019-01-21 08:37 | PN ---
Progress Note, Physician Chief Complaint: Chest pain Pneumonia History of Present Illness: On Bipap Lethargic On levophed 20 Getting HD now - Current Medication List Current Medications: Active Medications Acetaminophen (Tylenol -) 650 mg PO Q6H PRN PRN Reason: PAIN LEVEL 1-5 Albuterol/Ipratropium (Duoneb -) 1 amp NEB RQID [facility] BEDS AT THE [facility] Last Admin: 01/21/19 07:40 Dose: 1 amp Atorvastatin Calcium (Lipitor -) 10 mg PO HS [facility]S [facility]CLUDE 234 BEDS AT THE [facility] Last Admin: 01/20/19 21:41 Dose: 10 mg Chlorhexidine Gluconate (Hibiclens For Decolonization -) 1 applic TP HS [facility]S [facility]CLUDE 234 BEDS AT THE [facility] Last Admin: 01/20/19 21:41 Dose: 1 applic Dorzolamide HCl (Trusopt 2%) 1 drop OU BID [facility]S [facility]CLUDE 234 BEDS AT THE [facility] Last Admin: 01/20/19 21:41 Dose: 1 drop Fludrocortisone Acetate (Florinef -) 0.05 mg PO DAILY [facility] Furosemide (Lasix Injection -) 100 mg IVPB BIDLASIX COUNTS INCLUDE 234 BEDS AT THE [facility] Last Admin: 01/21/19 06:46 Dose: 100 mg Hydrocortisone Sodium Succinate (Solu-Cortef -) 50 mg IVPB Q6H COUNTS INCLUDE 234 BEDS AT THE [facility] Last Admin: 01/21/19 01:41 Dose: 50 mg Norepinephrine Bitartrate 8, (000 mcg/ Sodium Chloride) 500 mls @ 17.83 mls/hr IV ASDIR COUNTS INCLUDE 234 BEDS AT THE [facility]; Protocol Last Admin: 01/21/19 06:45 Dose: Not Given Piperacillin Sod/Tazobactam (Sod 2.25 gm/ Dextrose) 50 mls @ 100 mls/hr IVPB Q8H-IV [facility]; Protocol Last Admin: 01/21/19 02:06 Dose: 100 mls/hr Sodium Chloride (Normal Saline -) 250 mls @ 3,000 mls/hr IV PRN PRN PRN Reason: Hypotension during Dialysis Stop: 01/21/19 14:01 Insulin Aspart (Novolog Vial Sliding Scale -) 1 vial SQ Q4HPO COUNTS INCLUDE 234 BEDS AT THE [facility]; Protocol Last Admin: 01/21/19 06:46 Dose: Not Given Insulin Detemir (Levemir Vial) 20 units SQ HS COUNTS INCLUDE 234 BEDS AT THE [facility] Last Admin: 01/20/19 21:47 Dose: 20 units Insulin Detemir (Levemir Vial) 20 units SQ AM COUNTS INCLUDE 234 BEDS AT THE [facility] Last Admin: 01/21/19 06:46 Dose: 20 units Multi-Ingredient Lotion (Eucerin (Large Jar) -) 1 applic TP BID PRN PRN Reason: DRY SKIN Nystatin (Nystatin Oral Suspension -) 500,000 units PO Q6HPO COUNTS INCLUDE 234 BEDS AT THE [facility] Last Admin: 01/21/19 06:46 Dose: 500,000 units Rivaroxaban (Xarelto) 15 mg PO DAILY@1800 COUNTS INCLUDE 234 BEDS AT THE [facility] Last Admin: 01/20/19 18:37 Dose: 15 mg - Objective Vital Signs: Vital Signs Temperature 97.9 F 01/21/19 06:00 Pulse Rate 103 H 01/21/19 08:26 Respiratory Rate 23 H 01/21/19 06:00 Blood Pressure 102/49 L 01/21/19 06:00 O2 Sat by Pulse Oximetry (%) 93 L 01/21/19 08:26 Constitutional: Yes: Calm, Mild Distress, Obese Cardiovascular: Yes: Regular Rate and Rhythm Respiratory: Yes: On BiPap, Rhonchi (diffuse) Gastrointestinal: Yes: Normal Bowel Sounds, Soft, Abdomen, Obese Genitourinary: Yes: Aguilera Present Musculoskeletal: Yes: Muscle Weakness Edema: Yes (BLLE non pitting edema) Peripheral Pulses WNL: No Peripheral Pulses: Left Doralis Pedis: 1+, Right Dorsalis Pedis: 1+ Wound/Incision: Yes: Dressing Dry and Intact (BLLE) Neurological: Yes: Lethargy Labs: CBC, BMP 01/21/19 05:20 01/21/19 05:20 INR, PTT INR 1.69 (0.83-1.09) H 01/09/19 17:55 Problem List - Problems (1) Acute exacerbation of chronic obstructive pulmonary disease (COPD) Assessment/Plan: -Pulmonary consult -IV abx -Bronchodilators -Nasal O 2 PRN to keep SpO2>90% -Bipap PRN -On Solucortef Problems reviewed: Yes Code(s): J44.1 - CHRONIC OBSTRUCTIVE PULMONARY DISEASE W (ACUTE) EXACERBATION (2) Morbid obesity Assessment/Plan: -Keep NPO to avoid aspiration 2/2 to lethargy -A1c 8.8 Problems reviewed: Yes Code(s): E66.01 - MORBID (SEVERE) OBESITY DUE TO EXCESS CALORIES (3) Pneumonia Assessment/Plan: -Pulmonary consult -IV abx -Bronchodilators -Nasal O 2 PRN to keep SpO2>90% -ID consult -IV abx -Blood Cultures pending -Legionella UC negative -CXR reviewed Problems reviewed: Yes Code(s): J18.9 - PNEUMONIA, UNSPECIFIED ORGANISM (4) Acute on chronic diastolic CHF (congestive heart failure) Assessment/Plan: -Pulmonary consult -IV abx -Bronchodilators -Nasal O 2 PRN to keep SpO2>90% -ID consult -IV diuresis -Cardiology consult -1L fluid restriction -daily weights -monitor I&O's Problems reviewed: Yes Code(s): I50.33 - ACUTE ON CHRONIC DIASTOLIC (CONGESTIVE) HEART FAILURE (5) Hyponatremia Assessment/Plan: -Nephrology consult -Likely 2/2 to fluid overload/dilutional -1L fluid restriction -Monitor trend Problems reviewed: Yes Code(s): E87.1 - HYPO-OSMOLALITY AND HYPONATREMIA (6) Diabetes Assessment/Plan: -A1c at 8.8 -BGM AC HS -Levemir 20 U BID -ISS Problems reviewed: Yes Code(s): E11.9 - TYPE 2 DIABETES MELLITUS WITHOUT COMPLICATIONS Assessment/Plan (1) Shock Assessment/Plan: -Continue levophed -Titrate as pt improves Code(s): R57.9 - SHOCK, UNSPECIFIED (2) Acute renal insufficiency Assessment/Plan: -HD/UF per renal -lasix 100 mg IVP BID Nephrology on board Code(s): N28.9 - DISORDER OF KIDNEY AND URETER, UNSPECIFIED (3) Hypotension Assessment/Plan: -Continue levophed -Titrate as pt improves -On solucortef Code(s): I95.9 - HYPOTENSION, UNSPECIFIED (7) DVT of upper extremity (deep vein thrombosis) Assessment/Plan: -on xarelto 15mg Code(s): I82.629 - ACUTE EMBOLISM AND THROMBOSIS OF DEEP VN UNSP UP EXTREM (8) Thrush, oral Assessment/Plan: -Nystatin swish spit Code(s): B37.0 - CANDIDAL STOMATITIS (9) Hyperthyroidism Assessment/Plan: -Tapazole stopped -euthyroid -endocrine consult Code(s): E05.90 - THYROTOXICOSIS, UNSP WITHOUT THYROTOXIC CRISIS OR STORM (13) HLD (hyperlipidemia) Assessment/Plan: -Continue atorvastatin 10 mg po HS Code(s): E78.5 - HYPERLIPIDEMIA, UNSPECIFIED (16) Acute on chronic diastolic CHF (congestive heart failure) Assessment/Plan: -Last CXR with bilateral pleural effusions -On Furosemide 100 mg IVPB BID -on levophed as well to maintain
[2019-01-21] MEDS ORDERED: VANCOMYCIN HCL 1,500 MG in DEXTROSE 5%-WATER - 500 ML IVPB ONE (09:06)
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
--- NOTE | 2019-01-21 09:12 | PN ---
Progress Note (short form) - Note Progress Note: lethargic on bipap dialysis #3 today-currently being dialyzed persistent hypotension on levophed known large thyroid goiter morbid obesity HD #12 Vital Signs Period Temp Pulse Resp BP Sys/Woodall Pulse Ox Last 24 Hr 97.4 F-98.0 F 94-109 18-23 71-141/46-88 93-98 on bipap cor-rrr lungs decreased bs at bases abd soft,nt ext +edema right IJ CVP, left trialysate catheter bilateral skin tears CBC, BMP 01/21/19 05:20 01/21/19 05:20 Microbiology 01/16/19 13:30 Blood - Central Line Blood Culture - Preliminary NO GROWTH OBTAINED AFTER 96 HOURS, INCUBATION TO CONTINUE FOR 1 DAYS. 01/16/19 13:39 Blood - Peripheral Venous Blood Culture - Preliminary NO GROWTH OBTAINED AFTER 96 HOURS, INCUBATION TO CONTINUE FOR 1 DAYS. 01/15/19 10:30 Urine - Urine Aguilera Urine Culture - Final NO GROWTH OBTAINED 01/09/19 23:02 Urine - Urine Clean Catch Urine Culture - Final Proteus Mirabilis 01/10/19 17:17 Urine For Antigen Detection Legionella Antigen - Final 01/10/19 17:17 Urine For Antigen Detection Streptococcus pneumoniae Antigen (M - Final a/p persistent hypotension lethargy- repeat cxray, ?need for intubation MARVA-currently on HD morbid obesity large thyroid goiter reculture empiric vancomycin after cultures continue zosyn doing poorly d/w hospitalist, icu nurse over 35 minutes spent in the care of this critically ill ICU patient (review of chart, meds, labs and exam)
[2019-01-21] MEDS: VASOPRESSIN 50 UNITS in SODIUM CHLORIDE 97.5 ML IVPB SCH (09:30)
[2019-01-21] MEDS ORDERED: VASOPRESSIN 20 UNITS/ML VIAL IV ONE (09:35)
--- NOTE | 2019-01-21 09:58 | PN ---
Progress Note (short form) - Note Progress Note: Seen and examined in the ICU Patient remains on NE 20mcg/min Pt remains on NIPPV Lethargic this AM I called family about GOC: full code Added vasopressin this AM Current Medications Acetaminophen (Tylenol -) 650 mg PO Q6H PRN PRN Reason: PAIN LEVEL 1-5 Albuterol/Ipratropium (Duoneb -) 1 amp NEB RQID [facility] Last Admin: 01/21/19 07:40 Dose: 1 amp Atorvastatin Calcium (Lipitor -) 10 mg PO HS [facility] Last Admin: 01/20/19 21:41 Dose: 10 mg Chlorhexidine Gluconate (Hibiclens For Decolonization -) 1 applic TP HS [facility] Last Admin: 01/20/19 21:41 Dose: 1 applic Dorzolamide HCl (Trusopt 2%) 1 drop OU BID [facility] Last Admin: 01/20/19 21:41 Dose: 1 drop Fludrocortisone Acetate (Florinef -) 0.05 mg PO DAILY [facility] Furosemide (Lasix Injection -) 100 mg IVPB BIDLASIX [facility] Last Admin: 01/21/19 06:46 Dose: 100 mg Hydrocortisone Sodium Succinate (Solu-Cortef -) 50 mg IVPB Q6H [facility] Last Admin: 01/21/19 01:41 Dose: 50 mg Norepinephrine Bitartrate 8, (000 mcg/ Sodium Chloride) 500 mls @ 17.83 mls/hr IV [facility]; Protocol Last Admin: 01/21/19 06:45 Dose: Not Given Piperacillin Sod/Tazobactam (Sod 2.25 gm/ Dextrose) 50 mls @ 100 mls/hr IVPB Q8H-IV [facility]; Protocol Last Admin: 01/21/19 02:06 Dose: 100 mls/hr Sodium Chloride (Normal Saline -) 250 mls @ 3,000 mls/hr IV PRN PRN PRN Reason: Hypotension during Dialysis Stop: 01/21/19 14:01 Vancomycin HCl 1,500 mg/ (Dextrose) 500 mls @ 250 mls/hr IVPB ONCE ONE; Protocol Stop: 01/21/19 11:05 Vasopressin 50 units/ Sodium (Chloride) 100 mls @ 4 mls/hr IVPB [facility]; Protocol Insulin Aspart (Novolog Vial Sliding Scale -) 1 vial SQ Q4HPO [facility]; Protocol Last Admin: 01/21/19 06:46 Dose: Not Given Insulin Detemir (Levemir Vial) 20 units SQ HS [facility] Last Admin: 01/20/19 21:47 Dose: 20 units Insulin Detemir (Levemir Vial) 20 units SQ AM [facility] Last Admin: 01/21/19 06:46 Dose: 20 units Multi-Ingredient Lotion (Eucerin (Large Jar) -) 1 applic TP BID PRN PRN Reason: DRY SKIN Nystatin (Nystatin Oral Suspension -) 500,000 units PO Q6HPO [facility] Last Admin: 01/21/19 06:46 Dose: 500,000 units Rivaroxaban (Xarelto) 15 mg PO DAILY@1800 [facility] Last Admin: 01/20/19 18:37 Dose: 15 mg Vital Signs Period Temp Pulse Resp BP Sys/Woodall Pulse Ox Last 24 Hr 97.4 F-98.0 F 94-109 18-23 71-141/46-88 93-98 Intake & Output 01/18/19 01/19/19 01/20/19 01/21/19 23:59 23:59 23:59 23:59 Intake Total 3790 2552 1742 922 Output Total 250 3450 2900 150 Balance 1290 -588 -2305 772 Weight 158.559 kg 160.6 kg 162.431 kg 162.431 kg Exam: morbidly obese man on NIPPV minimally responsive, on iHD HEENT: PERRL, periorbital edema Pulm: coarse, diminished in bases CV: sinus tach. distant heart sounds AAbd: Obese, SNTND Ext: Cold to touch, +4 edema Neuro: opens eyes to voice, not following commands ABG Results ABG pH 7.29 (7.35-7.45) L 01/21/19 06:24 ABG pCO2 at Pt Temp 37.1 mmHg (35-45) 01/21/19 06:24 ABG pO2 at Pt Temp 63.3 mmHg (80-100) L 01/21/19 06:24 ABG HCO3 17.4 mmol/L (22-27) L 01/21/19 06:24 ABG O2 Sat (Measured) 90.4 % (95-98) L 01/21/19 06:24 ABG O2 Content 13.1 % vol 01/21/19 06:24 ABG Base Excess -8.0 meq/l (-2-2) L 01/21/19 06:24 CBC, BMP 01/21/19 05:20 01/21/19 05:20 No CXR this AM ASSESSMENT AND PLAN: Acute on Chronic Diastolic Heart Failure UTI Shock of unclear etiology Acute Kidney Injury Hyponatremia Morbid Obesity Obstructive Sleep Apnea Obesity Hypoventilation Syndrome COPD Anemia h/o DVT HTN - Renal following for ARF -monitor urine output, creatinine -iHD today if tolerated by BP -renal dose medications -slow correction of hypoNa - Shock - titrate pressors to maintain MAP >65, add vasopressin this AM - cont stress steroids - Acute on chronic hypercapinc resp failue i/s/o metabolic acidosis -will likely need intubation today, I spoke with his mother Cari Lucero about risk of intubation given [facility], she is aware of the risk of upon intubation attempt - O2 to keep SpO2 >90% - inhaled bronchodilators - HCAP + UTI - continue antibiotics: zosyn/vanco - f/u pending cultures - DVT - continue anticoagulation Dispo: - continue ICU monitoring - prognosis guarded Boerem ACNP Pulm/CCM CCT: 45m
[2019-01-21] MEDS ORDERED: FLUDROCORTISONE ACETATE 0.1 MG TABLET (FP) PO SCH (10:00)
[2019-01-21] MEDS ORDERED: VANCOMYCIN 1 GRAM (PRE-DOCKED) 1,000 MG/250 ML BAG IVPB ONE (10:31)
[2019-01-21] MEDS: FLUDROCORTISONE ACETATE 0.1 MG TABLET (FP) PO SCH (10:39)
[2019-01-21 10:53] LABS: MAGNESIUM 1.9 mg/dL (1.8-2.4); PHOSPHOROUS 2.7 mg/dL (2.5-4.9)
[2019-01-21 11:08] LABS: ARTERIAL BLD GAS O2 SATURATION 88.7 % (95-98); ARTERIAL BLOOD GAS BASE EXCESS -5.8 meq/l (-2-2); ARTERIAL BLOOD GAS PCO2 64.5 mmHg (35-45); ARTERIAL BLOOD GAS PO2 66.4 mmHg (80-100)
[2019-01-21 11:16] LABS: ARTERIAL BLOOD GAS pH 7.18 (7.35-7.45)
[2019-01-21 11:28] LABS: ANISOCYTOSIS 1+; MACROCYTOSIS 1+; PLATELET ESTIMATE DECREASED
[2019-01-21] MEDS ORDERED: MIDAZOLAM HCL 5 MG/1 ML Single Dose Vial IVPUSH ONE (11:37)
[2019-01-21] MEDS ORDERED: SUCCINYLCHOLINE CHLORIDE 200 MG/10 ML SYRINGE ONE (11:39)
[2019-01-21] MEDS: SUCCINYLCHOLINE CHLORIDE 200 MG/10 ML VIAL IVPUSH ONE ×2 (11:40→13:00)
[2019-01-21] MEDS ORDERED: RAPID SEQUENCE INTUBATION KIT NR ONE (11:42)
[2019-01-21] MEDS ORDERED: KETAMINE HCL 200 MG/20 ML VIAL ONE (11:44)
[2019-01-21] MEDS ORDERED: NOREPINEPHRINE BITARTRATE 4 MG/4 ML ML IV ONE ×2 (11:49→18:18)
[2019-01-21] MEDS: DORZOLAMIDE 2% HCL OPHTHALMIC SOLUTION 10 ML BOTTLE OU SCH ×2 (13:00→23:10)
[2019-01-21 13:26] LABS: ARTERIAL BLD GAS O2 SATURATION 99.2 % (95-98); ARTERIAL BLOOD GAS BASE EXCESS -6.6 meq/l (-2-2); ARTERIAL BLOOD GAS PCO2 51.6 mmHg (35-45); ARTERIAL BLOOD GAS pH 7.22 (7.35-7.45)
[2019-01-21 13:32] LABS: ARTERIAL BLOOD GAS PO2 302 mmHg (80-100)
[2019-01-21 13:33] LABS: ALLENS TEST POSITIVE
--- NOTE | 2019-01-21 14:30 | PN ---
Progress Note (short form) - Note Progress Note: Anesthesiology intubation Note Called to patient bedside to assist in intubation secondary to respiratory failure while on BiPAP. The patient was minimally resonsive. The patient was pre oxygenated with 100% O2, induced with 2mg versed and 50mg ketamine, glide 4 blade was used to obtain a grade 1 view, 8.0 ETT was inserted without difficulty. The patient remained on pressor support and vital signs remained unchanged. Tube placement was confirmed with color change indicator and auscultation. Care was then returned to the ICU staff.
[2019-01-21] MEDS: FAMOTIDINE 20 MG/50 ML IVPB 20 MG/50 ML MG IVPB SCH (16:43)
[2019-01-21] MEDS: RIVAROXABAN 15 MG TABLET PO SCH (18:27)
[2019-01-21] MEDS: CHLORHEXIDINE GLUCONATE 4% CLEANSER FOR DECOLONIZATION TP SCH (22:00)
[2019-01-21] MEDS: ATORVASTATIN CA 10 MG TABLET (FP) PO SCH (23:09)
[2019-01-22] MEDS ORDERED: PIPERACILLIN/TAZOBACTAM 2.25 GM VIAL IVPB ONE ×4 (01:40→23:18)
[2019-01-22] MEDS ORDERED: DEXTROSE 5%-WATER - 50 ML IVPB ONE ×4 (01:40→23:19)
[2019-01-22] MEDS: HYDROCORTISONE SOD SUCCINATE 100 MG/2 ML VIAL IVPB SCH ×4 (01:41→21:03)
[2019-01-22] MEDS: PIPERACILLIN/TAZOB 2.25 GM 2.25 GM in DEXTROSE 5%-WATER - 50 ML IVPB SCH ×3 (01:41→18:43)
[2019-01-22] MEDS: INSULIN SLIDING SCALE (NOVOLOG) 1 VIAL SQ SCH ×6 (02:00→21:06)
[2019-01-22] MEDS: NYSTATIN 500,000 UNITS/5 ML SUSPENSION PO SCH ×5 (06:08→23:22)
[2019-01-22 06:37] LABS: HEMATOCRIT 24.9 % (35.4-49); HEMOGLOBIN 8.8 GM/dL (11.7-16.9); MCH 32.8 pg (25.7-33.7); MCHC 35.3 g/dl (32.0-35.9); MEAN PLT VOLUME 7.5 fl (7.5-11.1); PLATELET COUNT 101 K/MM3 (134-434); RBC 2.68 M/mm3 (4.00-5.60); RDW 14.3 % (11.9-15.9); WHITE BLOOD COUNT 8.8 K/mm3 (4.0-10.0)
[2019-01-22 07:06] LABS: ARTERIAL BLOOD GAS BASE EXCESS -5.6 meq/l (-2-2); ARTERIAL BLOOD GAS PCO2 35.2 mmHg (35-45); ARTERIAL BLOOD GAS PO2 156 mmHg (80-100); ARTERIAL BLOOD GAS pH 7.35 (7.35-7.45)
[2019-01-22] MEDS: INSULIN (LEVEMIR) 100 UNITS/ML UNITS SQ SCH ×2 (07:09→21:45)
[2019-01-22 07:22] LABS: INR 1.65 (0.83-1.09); PROTHROMBIN TIME (PATIENT) 19.6 SEC (9.7-13.0)
[2019-01-22 07:24] LABS: ACTIVATED PTT 41.7 SECONDS (25.2-36.5)
[2019-01-22] MEDS: ALBUTEROL SO4 2.5/IPRATROPIUM 0.5 INH SOL 3 ML VIAL.NEB. NEB SCH ×4 (07:45→20:34)
[2019-01-22] MEDS: FAMOTIDINE 20 MG/50 ML IVPB 20 MG/50 ML MG IVPB SCH (08:14)
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
--- NOTE | 2019-01-22 08:17 | PN ---
Progress Note (short form) - Note Progress Note: Seen and examined in the ICU Last 24hrs: -intubated for hypercapnic resp failure -iHD done -added vasopressin given severe shock -NE down from 20->15mcg/min this AM Current Medications Acetaminophen (Tylenol -) 650 mg PO Q6H PRN PRN Reason: PAIN LEVEL 1-5 Albuterol/Ipratropium (Duoneb -) 1 amp NEB RQID [facility] Last Admin: 01/21/19 20:30 Dose: 1 amp Atorvastatin Calcium (Lipitor -) 10 mg PO HS [facility] Last Admin: 01/21/19 23:09 Dose: Not Given Chlorhexidine Gluconate (Hibiclens For Decolonization -) 1 applic TP HS [facility] Last Admin: 01/21/19 22:00 Dose: 1 applic Dorzolamide HCl (Trusopt 2%) 1 drop OU BID [facility] Last Admin: 01/21/19 23:10 Dose: 1 drop Fludrocortisone Acetate (Florinef -) 0.05 mg PO DAILY [facility] Last Admin: 01/21/19 10:39 Dose: Not Given Hydrocortisone Sodium Succinate (Solu-Cortef -) 50 mg IVPB Q6H [facility] Last Admin: 01/22/19 01:41 Dose: 50 mg Norepinephrine Bitartrate 8, (000 mcg/ Sodium Chloride) 500 mls @ 17.83 mls/hr IV ASDIR PALLAVI; Protocol Last Titration: 01/22/19 07:59 Dose: 0.09 mcg/kg/min, 56.3 mls/hr Piperacillin Sod/Tazobactam (Sod 2.25 gm/ Dextrose) 50 mls @ 100 mls/hr IVPB Q8H-IV [facility]; Protocol Last Admin: 01/22/19 01:41 Dose: 100 mls/hr Sodium Chloride (Normal Saline -) 250 mls @ 3,000 mls/hr IV PRN PRN PRN Reason: Hypotension during Dialysis Stop: 01/21/19 14:01 Vasopressin 50 units/ Sodium (Chloride) 100 mls @ 4 mls/hr IVPB ASDIR PALL[facility]; Protocol Last Titration: 01/21/19 15:00 Dose: 2 units/hr, 4 mls/hr Famotidine/Sodium Chloride (Pepcid 20 Mg Premixed Ivpb -) 20 mg in 50 mls @ 100 mls/hr IVPB DAILY@0800 [facility] Last Admin: 01/21/19 16:43 Dose: 100 mls/hr Insulin Aspart (Novolog Vial Sliding Scale -) 1 vial SQ Q4HPO [facility]; Protocol Last Admin: 01/22/19 06:04 Dose: Not Given Insulin Detemir (Levemir Vial) 20 units SQ HS [facility] Last Admin: 01/21/19 22:00 Dose: 20 units Insulin Detemir (Levemir Vial) 20 units SQ AM [facility] Last Admin: 01/22/19 07:09 Dose: Not Given Multi-Ingredient Lotion (Eucerin (Large Jar) -) 1 applic TP BID PRN PRN Reason: DRY SKIN Nystatin (Nystatin Oral Suspension -) 500,000 units PO Q6HPO [facility] Last Admin: 01/22/19 06:08 Dose: 500,000 units Rivaroxaban (Xarelto) 15 mg PO DAILY@1800 [facility] Last Admin: 01/21/19 18:27 Dose: 15 mg Vital Signs Period Temp Pulse Resp BP Sys/Woodall Pulse Ox Last 24 Hr 95 F-96.9 F 70-104 11-31 81-140/32-96 92-100 Intake & Output 01/19/19 01/20/19 01/21/19 01/22/19 23:59 23:59 23:59 23:59 Intake Total 2552 1742 2346.5 908 Output Total 3450 2900 220 100 Balance -898 -1158 2126.5 808 Weight 160.6 kg 162.431 kg 162.431 kg 163.021 kg Exam: General: intubated and sedated w/o distress HEENT: periorbital edema, scleral edema, PERRL CV: RRR, distant heart sounds Pulm: coarse bilateral, bronchial in bilateral bases Abd: Obese, soft, +BS Ext: +4 edema, multiple areas w skin tears Neuro: RASS -3 ABG Results ABG pH 7.35 (7.35-7.45) 01/22/19 06:55 ABG pCO2 at Pt Temp 35.2 mmHg (35-45) 01/22/19 06:55 ABG pO2 at Pt Temp 156 mmHg (80-100) H 01/22/19 06:55 ABG HCO3 18.9 mmol/L (22-27) L 01/22/19 06:55 ABG O2 Sat (Measured) 99.0 % (95-98) H 01/22/19 06:55 ABG O2 Content 11.8 % vol 01/22/19 06:55 ABG Base Excess -5.6 meq/l (-2-2) L 01/22/19 06:55 CBC, BMP 01/22/19 05:15 01/22/19 06:00 CXR: ETT and CVCs in good position PCV congestion, bilateral effusion w/ worsening RLL consolidations Microbiology 01/16/19 13:30 Blood - Central Line Blood Culture - Final NO GROWTH AFTER 5 DAYS INCUBATION 01/16/19 13:39 Blood - Peripheral Venous Blood Culture - Final NO GROWTH AFTER 5 DAYS INCUBATION 01/15/19 10:30 Urine - Urine Aguilera Urine Culture - Final NO GROWTH OBTAINED 01/09/19 23:02 Urine - Urine Clean Catch Urine Culture - Final Proteus Mirabilis 01/10/19 17:17 Urine For Antigen Detection Legionella Antigen - Final 01/10/19 17:17 Urine For Antigen Detection Streptococcus pneumoniae Antigen (M - Final All Active Problems Diabetes (Acute) Shock (Acute) Acute on chronic respiratory failure with hypoxia and hypercapnia (Acute) Bilateral lower extremity edema (Acute) COPD exacerbation (Acute) Cellulitis of left leg (Acute) Chronic respiratory failure with hypoxia and hypercapnia (Acute) Dvt femoral (deep venous thrombosis) (Acute) Goiter (Acute) Morbid obesity with BMI of 50.0-59.9, adult (Acute) Obesity hypoventilation syndrome (Acute) Obstructive apnea (Acute) Pneumonia (Acute) Pulmonary hypertension (Acute) Sepsis (Acute) Plan: - Renal following for ARF -monitor urine output, creatinine -iHD per nephology -renal dose medications -slow correction of hypoNa - Shock - titrate pressors to maintain MAP >65, NE and vasopressin - cont stress steroids - Acute on chronic hypercapinc resp failue i/s/o metabolic acidosis - mechanical ventilation - will cont w/ high PEEP given body habitus and bilateral LL atelectasis - daily breathing trials w/ interruption of sedation once stable - O2 to keep SpO2 >90% - inhaled bronchodilators - HCAP + UTI - continue antibiotics: zosyn/vanco - f/u pending cultures FEN: - start TFs today - DVT - continue anticoagulation Dispo: - continue ICU monitoring - prognosis guarded Boerem ACNP Pulm/CCM CCT: 45m
--- NOTE | 2019-01-22 08:37 | PN ---
Progress Note, Physician Chief Complaint: Chest pain Pneumonia History of Present Illness: Intubated overnight Still on Levophed maintaining MAP >65 mm Hg Oliguric Had HD yesterday - Current Medication List Current Medications: Active Medications Acetaminophen (Tylenol -) 650 mg PO Q6H PRN PRN Reason: PAIN LEVEL 1-5 Albuterol/Ipratropium (Duoneb -) 1 amp NEB RQID [facility] Last Admin: 01/21/19 20:30 Dose: 1 amp Atorvastatin Calcium (Lipitor -) 10 mg PO HS [facility] Last Admin: 01/21/19 23:09 Dose: Not Given Chlorhexidine Gluconate (Hibiclens For Decolonization -) 1 applic TP HS [facility] Last Admin: 01/21/19 22:00 Dose: 1 applic Dorzolamide HCl (Trusopt 2%) 1 drop OU BID [facility] Last Admin: 01/21/19 23:10 Dose: 1 drop Fludrocortisone Acetate (Florinef -) 0.05 mg PO DAILY [facility] Last Admin: 01/21/19 10:39 Dose: Not Given Hydrocortisone Sodium Succinate (Solu-Cortef -) 50 mg IVPB Q6H [facility] Last Admin: 01/22/19 08:13 Dose: 50 mg Norepinephrine Bitartrate 8, (000 mcg/ Sodium Chloride) 500 mls @ 17.83 mls/hr IV ASDIR [facility]ALL[facility]; Protocol Last Titration: 01/22/19 07:59 Dose: 0.09 mcg/kg/min, 56.3 mls/hr Piperacillin Sod/Tazobactam (Sod 2.25 gm/ Dextrose) 50 mls @ 100 mls/hr IVPB Q8H-IV [facility]; Protocol Last Admin: 01/22/19 01:41 Dose: 100 mls/hr Sodium Chloride (Normal Saline -) 250 mls @ 3,000 mls/hr IV PRN PRN PRN Reason: Hypotension during Dialysis Stop: 01/21/19 14:01 Vasopressin 50 units/ Sodium (Chloride) 100 mls @ 4 mls/hr IVPB ASDIR [facility]; Protocol Last Titration: 01/21/19 15:00 Dose: 2 units/hr, 4 mls/hr Famotidine/Sodium Chloride (Pepcid 20 Mg Premixed Ivpb -) 20 mg in 50 mls @ 100 mls/hr IVPB DAILY@0800 [facility] Last Admin: 01/22/19 08:14 Dose: 100 mls/hr Insulin Aspart (Novolog Vial Sliding Scale -) 1 vial SQ Q4HPO [facility]; Protocol Last Admin: 01/22/19 06:04 Dose: Not Given Insulin Detemir (Levemir Vial) 20 units SQ HS [facility] Last Admin: 01/21/19 22:00 Dose: 20 units Insulin Detemir (Levemir Vial) 20 units SQ AM [facility] Last Admin: 01/22/19 07:09 Dose: Not Given Multi-Ingredient Lotion (Eucerin (Large Jar) -) 1 applic TP BID PRN PRN Reason: DRY SKIN Nystatin (Nystatin Oral Suspension -) 500,000 units PO Q6HPO [facility] Last Admin: 01/22/19 06:08 Dose: 500,000 units Rivaroxaban (Xarelto) 15 mg PO DAILY@1800 [facility] Last Admin: 01/21/19 18:27 Dose: 15 mg - Objective Vital Signs: Vital Signs Temperature 96.4 F L 01/22/19 07:30 Pulse Rate 80 01/22/19 07:59 Respiratory Rate 24 H 01/22/19 07:30 Blood Pressure 116/71 01/22/19 07:59 O2 Sat by Pulse Oximetry (%) 95 01/21/19 22:02 Constitutional: Yes: Well Nourished, No Distress, Calm Cardiovascular: Yes: Regular Rate and Rhythm, Murmur (Grade II/) Respiratory: Yes: Mechanically Ventilated, Rhonchi (diffuse) Gastrointestinal: Yes: Normal Bowel Sounds, Soft, Abdomen, Obese Genitourinary: Yes: Aguilera Present, Oliguria Musculoskeletal: Yes: Other (sedated) Edema: Yes (BLLE non pitting edema) Peripheral Pulses WNL: Yes Integumentary: Yes: Skin Tear (BLLE), Other (BLLE bullae) Neurological: Yes: Other (sedated) Labs: CBC, BMP 01/22/19 05:15 01/21/19 05:20 INR, PTT INR 1.65 (0.83-1.09) H 01/22/19 05:15 Problem List - Problems (1) Acute exacerbation of chronic obstructive pulmonary disease (COPD) Assessment/Plan: -Pulmonary consult -IV abx -Bronchodilators -Mechanical vent -On Solucortef Problems reviewed: Yes Code(s): J44.1 - CHRONIC OBSTRUCTIVE PULMONARY DISEASE W (ACUTE) EXACERBATION (2) Morbid obesity Assessment/Plan: -Start Glucerna 1.5 at 20 cc/hr, titrate upto goal rate of 50 cc/hr -A1c 8.8 Problems reviewed: Yes Code(s): E66.01 - MORBID (SEVERE) OBESITY DUE TO EXCESS CALORIES (3) Pneumonia Assessment/Plan: -Pulmonary consult -IV abx -Bronchodilators -Mechanical vent -ID consult -IV abx -Blood Cultures pending -Legionella UC negative -CXR reviewed Problems reviewed: Yes Code(s): J18.9 - PNEUMONIA, UNSPECIFIED ORGANISM (4) Acute on chronic diastolic CHF (congestive heart failure) Assessment/Plan: -Pulmonary consult -IV abx -Bronchodilators -ID consult -IV diuresis on hold -Cardiology consult -1L fluid restriction -daily weights -monitor I&O's Problems reviewed: Yes Code(s): I50.33 - ACUTE ON CHRONIC DIASTOLIC (CONGESTIVE) HEART FAILURE (5) Hyponatremia Assessment/Plan: -Nephrology consult -Likely 2/2 to fluid overload/dilutional -1L fluid restriction -Monitor trend Problems reviewed: Yes Code(s): E87.1 - HYPO-OSMOLALITY AND HYPONATREMIA (6) Diabetes Assessment/Plan: -A1c at 8.8 -BGM AC HS -Levemir 20 U BID -ISS Problems reviewed: Yes Code(s): E11.9 - TYPE 2 DIABETES MELLITUS WITHOUT COMPLICATIONS (7) Bullous dermatitis Assessment/Plan: -BLLE -Seen by dermatology -Apply triamcinolone BLLE Problems reviewed: Yes Code(s): L13.9 - BULLOUS DISORDER, UNSPECIFIED Assessment/Plan (1) Shock Assessment/Plan: -Continue levophed -Titrate as pt improves Code(s): R57.9 - SHOCK, UNSPECIFIED (2) Acute renal insufficiency Assessment/Plan: -HD/UF per renal -lasix 100 mg IVP BID-on hold for now -Nephrology on board Code(s): N28.9 - DISORDER OF KIDNEY AND URETER, UNSPECIFIED (3) Hypotension Assessment/Plan: -Continue levophed -Titrate as pt improves -On solucortef Code(s): I95.9 - HYPOTENSION, UNSPECIFIED (7) DVT of upper extremity (deep vein thrombosis) Assessment/Plan: -on xarelto 15mg Code(s): I82.629 - ACUTE EMBOLISM AND THROMBOSIS OF DEEP VN UNSP UP EXTREM (8) Thrush, oral Assessment/Plan: -Nystatin swish spit Code(s): B37.0 - CANDIDAL STOMATITIS (9) Hyperthyroidism Assessment/Plan: -Tapazole stopped -euthyroid -endocrine consult Code(s): E05.90 - THYROTOXICOSIS, UNSP WITHOUT THYROTOXIC CRISIS OR STORM (13) HLD (hyperlipidemia) Assessment/Plan: -Continue atorvastatin 10 mg po HS Code(s): E78.5 - HYPERLIPIDEMIA, UNSPECIFIED (16) Acute on chronic diastolic CHF (congestive heart failure) Assessment/Plan: -Last CXR with bilateral pleural effusions -On Furosemide 100 mg IVPB BID -on levophed as well to maintain
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
[2019-01-22] MEDS: VASOPRESSIN 50 UNITS in SODIUM CHLORIDE 97.5 ML IVPB SCH (09:30)
--- NOTE | 2019-01-22 09:41 | PN ---
Progress Note (short form) - Note Progress Note: intubated dialysis #3 yesterday remains on pressors known large thyroid goiter morbid obesity HD #13 Vital Signs Period Temp Pulse Resp BP Sys/Woodall Pulse Ox Last 24 Hr 95 F-96.9 F 70-104 11-27 89-140/32-96 95-100 cor-rrr lungs decreased bs at bases abd soft,nt ext multiple skin tears +ecchymoses CBC, BMP 01/22/19 05:15 Microbiology 01/21/19 12:00 Sputum - Endotrachea Suction/Ventilator Sputum Culture - Preliminary Presumptive Mrsa (Pbp2a Pos) 01/16/19 13:30 Blood - Central Line Blood Culture - Final NO GROWTH AFTER 5 DAYS INCUBATION 01/16/19 13:39 Blood - Peripheral Venous Blood Culture - Final NO GROWTH AFTER 5 DAYS INCUBATION 01/15/19 10:30 Urine - Urine Aguilera Urine Culture - Final NO GROWTH OBTAINED 01/09/19 23:02 Urine - Urine Clean Catch Urine Culture - Final Proteus Mirabilis 01/10/19 17:17 Urine For Antigen Detection Legionella Antigen - Final 01/10/19 17:17 Urine For Antigen Detection Streptococcus pneumoniae Antigen (M - Final Current Medications Acetaminophen (Tylenol -) 650 mg PO Q6H PRN PRN Reason: PAIN LEVEL 1-5 Albuterol/Ipratropium (Duoneb -) 1 amp NEB RQID [facility] Last Admin: 01/22/19 07:45 Dose: 1 amp Atorvastatin Calcium (Lipitor -) 10 mg PO [facility] Last Admin: 01/21/19 23:09 Dose: Not Given Chlorhexidine Gluconate (Hibiclens For Decolonization -) 1 applic TP HS [facility] Last Admin: 01/21/19 22:00 Dose: 1 applic Dorzolamide HCl (Trusopt 2%) 1 drop OU BID [facility] Last Admin: 01/21/19 23:10 Dose: 1 drop Fludrocortisone Acetate (Florinef -) 0.05 mg PO DAILY [facility] Last Admin: 01/21/19 10:39 Dose: Not Given Hydrocortisone Sodium Succinate (Solu-Cortef -) 50 mg IVPB Q6H [facility] Last Admin: 01/22/19 08:13 Dose: 50 mg Norepinephrine Bitartrate 8, (000 mcg/ Sodium Chloride) 500 mls @ 17.83 mls/hr IV ASDIR [facility]; Protocol Last Titration: 01/22/19 07:59 Dose: 0.09 mcg/kg/min, 56.3 mls/hr Piperacillin Sod/Tazobactam (Sod 2.25 gm/ Dextrose) 50 mls @ 100 mls/hr IVPB Q8H-IV [facility]; Protocol Last Admin: 01/22/19 01:41 Dose: 100 mls/hr Sodium Chloride (Normal Saline -) 250 mls @ 3,000 mls/hr IV PRN PRN PRN Reason: Hypotension during Dialysis Stop: 01/21/19 14:01 Vasopressin 50 units/ Sodium (Chloride) 100 mls @ 4 mls/hr IVPB ASDIR [facility]; Protocol Last Titration: 01/21/19 15:00 Dose: 2 units/hr, 4 mls/hr Famotidine/Sodium Chloride (Pepcid 20 Mg Premixed Ivpb -) 20 mg in 50 mls @ 100 mls/hr IVPB DAILY@0800 [facility] Last Admin: 01/22/19 08:14 Dose: 100 mls/hr Insulin Aspart (Novolog Vial Sliding Scale -) 1 vial SQ Q4HPO [facility]; Protocol Last Admin: 01/22/19 06:04 Dose: Not Given Insulin Detemir (Levemir Vial) 20 units SQ HS [facility] Last Admin: 01/21/19 22:00 Dose: 20 units Insulin Detemir (Levemir Vial) 20 units SQ AM [facility] Last Admin: 01/22/19 07:09 Dose: Not Given Multi-Ingredient Lotion (Eucerin (Large Jar) -) 1 applic TP BID PRN PRN Reason: DRY SKIN Nystatin (Nystatin Oral Suspension -) 500,000 units PO Q6HPO [facility] Last Admin: 01/22/19 06:08 Dose: 500,000 units Rivaroxaban (Xarelto) 15 mg PO DAILY@1800 [facility] Last Admin: 01/21/19 18:27 Dose: 15 mg Triamcinolone Acetonide (Aristocort 0.025% Ointment -) 1 applic TP BID [facility] a/p respiratory failure persistent hypotension-pressors being tapered infiltrates on cxray- vancomycin added yesterday MARVA- morbid obesity large thyroid goiter check vancomycin level and redose as needed contiue zosyn for now f/u cultures overall prognosis is guarded
[2019-01-22 09:53] LABS: BLOOD UREA NITROGEN 49.2 mg/dL (7-18); CALCIUM 8.4 mg/dL (8.5-10.1); CREATININE 3.3 mg/dL (0.55-1.3); MAGNESIUM 1.9 mg/dL (1.8-2.4); PHOSPHOROUS 1.8 mg/dL (2.5-4.9)
[2019-01-22 10:00] LABS: POTASSIUM 2.9 mmol/L (3.5-5.1)
[2019-01-22] MEDS ORDERED: POTASSIUM CHLORIDE ORAL LIQUID 20 MEQ/15 ML ONE (10:04)
[2019-01-22] MEDS ORDERED: POTASSIUM CHLORIDE ORAL LIQUID 20 MEQ/15 ML PO ONE (10:16)
[2019-01-22] MEDS: FLUDROCORTISONE ACETATE 0.1 MG TABLET (FP) PO SCH (10:20)
[2019-01-22] MEDS: TRIAMCINOLONE ACET 0.025% OINTMENT 15 GM TUBE TP SCH ×2 (10:21→21:07)
[2019-01-22] MEDS: DORZOLAMIDE 2% HCL OPHTHALMIC SOLUTION 10 ML BOTTLE OU SCH ×2 (10:34→21:07)
[2019-01-22] MEDS ORDERED: DEXTROSE 50%-WATER - 25 GM/50 ML VIAL ONE (12:55)
[2019-01-22] MEDS ORDERED: DEXTROSE 50%-WATER - 25 GM/50 ML VIAL IVPUSH PRN (13:08)
[2019-01-22] MEDS: NOREPINEPHRINE BITARTRATE 8,000 MCG in SODIUM CHLORIDE 492 ML IV SCH (13:10)
[2019-01-22] MEDS ORDERED: POTASSIUM CHLORIDE 20 MEQ PREMIX IVPB 100 ML IVPB ONE (14:00)
[2019-01-22] MEDS: AMINO ACIDS/PROTEIN HYDROLYS 30 ML LIQUID.PKT PO SCH (18:42)
[2019-01-22] MEDS: RIVAROXABAN 15 MG TABLET PO SCH (18:43)
[2019-01-22] MEDS ORDERED: INSULIN (LEVEMIR) 100 UNITS/ML UNITS SQ SCH (19:42)
[2019-01-22] MEDS: CHLORHEXIDINE GLUCONATE 4% CLEANSER FOR DECOLONIZATION TP SCH (21:03)
[2019-01-22] MEDS: ATORVASTATIN CA 10 MG TABLET (FP) PO SCH (21:06)
[2019-01-23] MEDS: HYDROCORTISONE SOD SUCCINATE 100 MG/2 ML VIAL IVPB SCH ×4 (01:31→19:53)
[2019-01-23] MEDS: PIPERACILLIN/TAZOB 2.25 GM 2.25 GM in DEXTROSE 5%-WATER - 50 ML IVPB SCH ×3 (01:32→17:03)
[2019-01-23] MEDS: INSULIN SLIDING SCALE (NOVOLOG) 1 VIAL SQ SCH ×6 (01:35→21:28)
[2019-01-23] MEDS: NYSTATIN 500,000 UNITS/5 ML SUSPENSION PO SCH ×3 (05:12→17:02)
[2019-01-23] MEDS: INSULIN (LEVEMIR) 100 UNITS/ML UNITS SQ SCH ×2 (06:11→21:31)
[2019-01-23 06:17] LABS: ARTERIAL BLD GAS O2 SATURATION 99.3 % (95-98); ARTERIAL BLOOD GAS BASE EXCESS -6.9 meq/l (-2-2); ARTERIAL BLOOD GAS PCO2 33.4 mmHg (35-45); ARTERIAL BLOOD GAS PO2 212 mmHg (80-100); ARTERIAL BLOOD GAS pH 7.34 (7.35-7.45)
[2019-01-23 06:22] LABS: ALLENS TEST POSITIVE
[2019-01-23 06:36] LABS: BASO % 0.1 % (0-2.0); EOS % 0.1 % (0-4.5); HEMOGLOBIN 8.7 GM/dL (11.7-16.9); LYMPH % 2.2 % (8-40); MCH 32.5 pg (25.7-33.7); MCHC 34.6 g/dl (32.0-35.9); MEAN CELL VOLUME 93.9 fl (80-96); MEAN PLT VOLUME 7.7 fl (7.5-11.1); MONO % 2.3 % (3.8-10.2); NEUT % 95.3 % (42.8-82.8); PLATELET COUNT 84 K/MM3 (134-434); RBC 2.66 M/mm3 (4.00-5.60); RDW 14.6 % (11.9-15.9); WHITE BLOOD COUNT 8.7 K/mm3 (4.0-10.0)
[2019-01-23 07:17] LABS: ALBUMIN 2.3 g/dl (3.4-5.0); BILIRUBIN,TOTAL 0.5 mg/dL (0.2-1); CALCIUM 8.6 mg/dL (8.5-10.1); CREATININE 3.9 mg/dL (0.55-1.3); MAGNESIUM 2.1 mg/dL (1.8-2.4); PHOSPHOROUS 2.1 mg/dL (2.5-4.9); POTASSIUM 3.8 mmol/L (3.5-5.1); TOT PROT 4.6 g/dl (6.4-8.2)
[2019-01-23] MEDS: ALBUTEROL SO4 2.5/IPRATROPIUM 0.5 INH SOL 3 ML VIAL.NEB. NEB SCH ×4 (07:45→20:30)
[2019-01-23] MEDS ORDERED: DEXTROSE 5%-WATER - 50 ML IVPB ONE ×2 (08:24→14:27)
[2019-01-23] MEDS ORDERED: PIPERACILLIN/TAZOBACTAM 2.25 GM VIAL IVPB ONE ×2 (08:24→14:27)
[2019-01-23] MEDS ORDERED: PT OWN MED DRAWER 7, Y5N ONE ×2 (08:26→21:24)
[2019-01-23] MEDS: FAMOTIDINE 20 MG/50 ML IVPB 20 MG/50 ML MG IVPB SCH (08:27)
[2019-01-23] MEDS: AMINO ACIDS/PROTEIN HYDROLYS 30 ML LIQUID.PKT PO SCH ×2 (08:29→17:02)
[2019-01-23] MEDS ORDERED: POTASSIUM PHOSPHATE 15 MM in SODIUM CHLORIDE 250 ML IVPB ONE (09:15)
[2019-01-23 10:14] LABS: ANISOCYTOSIS 1+; MACROCYTOSIS 1+; PLATELET ESTIMATE DECREASED
--- NOTE | 2019-01-23 10:43 | PN ---
Teaching Attending Note Name of Resident: Bernie Randall ATTENDING PHYSICIAN STATEMENT I saw and evaluated the patient. I reviewed the resident's note and discussed the case with the resident. I agree with the resident's findings and plan as documented. SUBJECTIVE: Patient seen and examined in the ICU. Intubated. AC Mode of vent, 40% FiO2 and PEEP 12. Arousable to voice commands. Moving all extremities. 10 mcq NE for hemodynamic support. Intake & Output 01/20/19 01/21/19 01/22/19 01/23/19 23:59 23:59 23:59 23:59 Intake Total 1742 2346.5 2039 960 Output Total 2900 220 120 50 Balance -1158 2126.5 1919 910 Weight 358 lb 1.6 oz 358 lb 1.6 oz 359 lb 6.4 oz 359 lb 6.4 oz Last Vital Signs Temp Pulse Resp BP Pulse Ox 96.9 F L 76 24 H 123/84 98 01/23/19 06:00 01/23/19 09:00 01/23/19 09:00 01/23/19 09:00 01/23/19 08:18 Active Medications Acetaminophen (Tylenol -) 650 mg PO Q6H PRN PRN Reason: PAIN LEVEL 1-5 Albuterol/Ipratropium (Duoneb -) 1 amp NEB RQID [facility] Last Admin: 01/23/19 07:45 Dose: 1 amp Amino Acids (Prosource No Carb Liquid Pkt) 30 ml PO BID@0800,1730 [facility] Last Admin: 01/23/19 08:29 Dose: 30 ml Atorvastatin Calcium (Lipitor -) 10 mg PO [facility] Last Admin: 01/22/19 21:06 Dose: 10 mg Chlorhexidine Gluconate (Hibiclens For Decolonization -) 1 applic TP [facility] Last Admin: 01/22/19 21:03 Dose: 1 applic Dorzolamide HCl (Trusopt 2%) 1 drop OU BID [facility] Last Admin: 01/22/19 21:07 Dose: 1 drop Fludrocortisone Acetate (Florinef -) 0.05 mg PO DAILY [facility] Last Admin: 01/22/19 10:20 Dose: 0.05 mg Hydrocortisone Sodium Succinate (Solu-Cortef -) 50 mg IVPB Q6H [facility] Last Admin: 01/23/19 08:29 Dose: 50 mg Norepinephrine Bitartrate 8, (000 mcg/ Sodium Chloride) 500 mls @ 17.83 mls/hr IV [facility]IR [facility]; Protocol Last Titration: 01/23/19 08:16 Dose: 0.06 mcg/kg/min, 35.67 mls/hr Piperacillin Sod/Tazobactam (Sod 2.25 gm/ Dextrose) 50 mls @ 100 mls/hr IVPB Q8H-IV [facility]; Protocol Last Admin: 01/23/19 09:19 Dose: 100 mls/hr Sodium Chloride (Normal Saline -) 250 mls @ 3,000 mls/hr IV PRN PRN PRN Reason: Hypotension during Dialysis Stop: 01/21/19 14:01 Vasopressin 50 units/ Sodium (Chloride) 100 mls @ 4 mls/hr IVPB ASDIR [facility]; Protocol Last Admin: 01/22/19 09:30 Dose: Not Given Famotidine/Sodium Chloride (Pepcid 20 Mg Premixed Ivpb -) 20 mg in 50 mls @ 100 mls/hr IVPB DAILY@0800 [facility] Last Admin: 01/23/19 08:27 Dose: 100 mls/hr Potassium Phosphate 15 mm/ (Sodium Chloride) 255 mls @ 62.5 mls/hr IVPB ONCE ONE Stop: 01/23/19 13:19 Fentanyl 500 mcg/ Dextrose 100 mls @ 5 mls/hr IVPB TITR [facility] Insulin Aspart (Novolog Vial Sliding Scale -) 1 vial SQ Q4HPO [facility]; Protocol Last Admin: 01/23/19 05:55 Dose: Not Given Insulin Detemir (Levemir Vial) 16 units SQ AM [facility] Last Admin: 01/23/19 06:11 Dose: 16 units Insulin Detemir (Levemir Vial) 16 units SQ HS [facility] Last Admin: 01/22/19 21:45 Dose: 16 units Multi-Ingredient Lotion (Eucerin (Large Jar) -) 1 applic TP BID PRN PRN Reason: DRY SKIN Nystatin (Nystatin Oral Suspension -) 500,000 units PO Q6HPO [facility] Last Admin: 01/23/19 05:12 Dose: 500,000 units Rivaroxaban (Xarelto) 15 mg PO DAILY@1800 [facility] Last Admin: 01/22/19 18:43 Dose: 15 mg Triamcinolone Acetonide (Aristocort 0.025% Ointment -) 1 applic TP BID [facility] Last Admin: 01/22/19 21:07 Dose: 1 applic Exam: General: intubated, awakens to voice command HEENT: periorbital edema, scleral edema, PERRL CV: RRR, distant heart sounds Pulm: coarse bilateral, bronchial in bilateral bases Abd: Obese, soft, +BS Ext: +4 edema, multiple areas w skin tears Neuro: non-focal Laboratory Results - last 24 hr 01/22/19 01/22/19 01/22/19 12:22 12:51 13:56 WBC RBC Hgb Hct MCV MCH MCHC RDW Plt Count MPV Absolute Neuts (auto) Neutrophils % Lymphocytes % Monocytes % Eosinophils % Basophils % Nucleated RBC % Anticoagulation Therapy Puncture Site ABG pH ABG pCO2 at Pt Temp ABG pO2 at Pt Temp ABG HCO3 ABG O2 Sat (Measured) ABG O2 Content ABG Base Excess [place] Test O2 Delivery Device Oxygen Flow Rate Vent Mode Vent Rate Mechanical Rate PEEP Pressure Support Vent Sodium Potassium Chloride Carbon Dioxide Anion Gap BUN Creatinine Est GFR (CKD-EPI)AfAm Est GFR (CKD-EPI)NonAf POC Glucometer 47 45 102 Random Glucose Calcium Phosphorus Magnesium Total Bilirubin AST ALT Alkaline Phosphatase Total Protein Albumin Random Vancomycin 01/22/19 01/22/19 01/22/19 18:25 18:30 21:00 WBC RBC Hgb Hct MCV MCH MCHC RDW Plt Count MPV Absolute Neuts (auto) Neutrophils % Lymphocytes % Monocytes % Eosinophils % Basophils % Nucleated RBC % Anticoagulation Therapy Puncture Site ABG pH ABG pCO2 at Pt Temp ABG pO2 at Pt Temp ABG HCO3 ABG O2 Sat (Measured) ABG O2 Content ABG Base Excess [place] Test O2 Delivery Device Oxygen Flow Rate Vent Mode Vent Rate Mechanical Rate PEEP Pressure Support Vent Sodium Potassium Chloride Carbon Dioxide Anion Gap BUN Creatinine Est GFR (CKD-EPI)AfAm Est GFR (CKD-EPI)NonAf POC Glucometer 71 76 82 Random Glucose Calcium Phosphorus Magnesium Total Bilirubin AST ALT Alkaline Phosphatase Total Protein Albumin Random Vancomycin 01/23/19 01/23/19 01/23/19 01:35 05:44 06:00 WBC RBC Hgb Hct MCV MCH MCHC RDW Plt Count MPV Absolute Neuts (auto) Neutrophils % Lymphocytes % Monocytes % Eosinophils % Basophils % Nucleated RBC % Anticoagulation Therapy Puncture Site ABG pH ABG pCO2 at Pt Temp ABG pO2 at Pt Temp ABG HCO3 ABG O2 Sat (Measured) ABG O2 Content ABG Base Excess [place] Test O2 Delivery Device Oxygen Flow Rate Vent Mode Vent Rate Mechanical Rate PEEP Pressure Support Vent Sodium Potassium Chloride Carbon Dioxide Anion Gap BUN Creatinine Est GFR (CKD-EPI)AfAm Est GFR (CKD-EPI)NonAf POC Glucometer 104 113 Random Glucose Calcium Phosphorus Magnesium Total Bilirubin AST ALT Alkaline Phosphatase Total Protein Albumin Random Vancomycin 28.8 H 01/23/19 01/23/19 01/23/19 06:00 06:00 06:00 WBC 8.7 RBC 2.66 L Hgb 8.7 L Hct 25.0 L MCV 93.9 MCH 32.5 MCHC 34.6 RDW 14.6 Plt Count 84 L MPV 7.7 Absolute Neuts (auto) 8.3 H Neutrophils % 95.3 H Lymphocytes % 2.2 L D Monocytes % 2.3 L Eosinophils % 0.1 D Basophils % 0.1 Nucleated RBC % 9 H Anticoagulation Therapy No Result Required. Puncture Site Arterial line ABG pH 7.34 L ABG pCO2 at Pt Temp 33.4 L ABG pO2 at Pt Temp 212 H ABG HCO3 17.6 L ABG O2 Sat (Measured) 99.3 H ABG O2 Content 12.1 ABG Base Excess -6.9 L [place] Test Positive O2 Delivery Device Vent Oxygen Flow Rate 40% Vent Mode A/c Vent Rate 24 Mechanical Rate Yes PEEP 12.0 Pressure Support Vent 450 Sodium 134 L Potassium 3.8 Chloride 102 Carbon Dioxide 20 L Anion Gap 11 BUN 58.0 H Creatinine 3.9 H Est GFR (CKD-EPI)AfAm 19.81 Est GFR (CKD-EPI)NonAf 17.10 POC Glucometer Random Glucose 129 H Calcium 8.6 Phosphorus 2.1 L Magnesium 2.1 Total Bilirubin 0.5 AST 28 ALT 71 H Alkaline Phosphatase 111 Total Protein 4.6 L Albumin 2.3 L Random Vancomycin IMP: Shock (Acute) Acute on chronic respiratory failure with hypoxia and hypercapnia (Acute) DM Bilateral lower extremity edema (Acute) COPD exacerbation (Acute) Cellulitis of left leg (Acute) Chronic respiratory failure with hypoxia and hypercapnia (Acute) Dvt femoral (deep venous thrombosis) (Acute) Goiter (Acute) Morbid obesity with BMI of 50.0-59.9, adult (Acute) Obesity hypoventilation syndrome (Acute) Obstructive apnea (Acute) Pneumonia (Acute) Pulmonary hypertension (Acute) Sepsis (Acute) (?) Thyroid mass Plan: Wean pressors to keep MAP > 65 Strict I & O HD per Renal ABX per ID Enteral feeds AC Follow pending cultures Stress does steroids Glycemic control PPI Thyroid US Overall prognosis is guarded Dr Arellano
[2019-01-23] MEDS: VASOPRESSIN 50 UNITS in SODIUM CHLORIDE 97.5 ML IVPB SCH (11:08)
[2019-01-23] MEDS: FLUDROCORTISONE ACETATE 0.1 MG TABLET (FP) PO SCH (11:08)
[2019-01-23] MEDS: DORZOLAMIDE 2% HCL OPHTHALMIC SOLUTION 10 ML BOTTLE OU SCH ×2 (11:09→21:32)
[2019-01-23] MEDS: TRIAMCINOLONE ACET 0.025% OINTMENT 15 GM TUBE TP SCH ×2 (11:09→21:34)
[2019-01-23] MEDS ORDERED: fentaNYL CITRATE 250 MCG/5 ML VIAL ONE ×2 (11:13→19:41)
[2019-01-23] MEDS: FENTANYL INJECTION 500 MCG in DEXTROSE 5%-WATER - 90 ML IVPB SCH ×2 (11:15→19:52)
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
[2019-01-23] MEDS ORDERED: SODIUM CHLORIDE 250 ML IV PRN (11:32)
--- NOTE | 2019-01-23 11:38 | PN ---
Physical Exam: SUBJECTIVE: Patient seen and examined at bedside. pt is awake and alert but intubated. OBJECTIVE: Vital Signs Period Temp Pulse Resp BP Sys/Woodall Pulse Ox Last 24 Hr 95.9 F-98.6 F 71-98 18-25 102-123/36-87 96-100 GENERAL: The patient is awake, alert,intubated, obese male EYES: PERRL LUNGS: vent sounds b/l. no wheezes, no crackles, no accessory muscle use. HEART: Regular rate and rhythm, S1, S2 without murmur, rub or gallop. ABDOMEN: Soft, nontender, nondistended, normoactive bowel sounds, no guarding EXTREMITIES: upper extremeties are cold and edematous, lower extremities have b/ l wounds with skin breakdown around medial malleolous SKIN: Warm, dry, normal turgor, no rashes or lesions noted 01/23/19 01/23/19 01/23/19 06:00 06:00 06:00 WBC 8.7 RBC 2.66 L Hgb 8.7 L Hct 25.0 L MCV 93.9 MCH 32.5 MCHC 34.6 RDW 14.6 Plt Count 84 L MPV 7.7 Absolute Neuts (auto) 8.3 H Neutrophils % 95.3 H Neutrophils % (Manual) 85.0 H Band Neutrophils % 3.0 Lymphocytes % 2.2 L D Lymphocytes % (Manual) 3.0 L Monocytes % 2.3 L Monocytes % (Manual) 3 L Eosinophils % 0.1 D Eosinophils % (Manual) 0.0 Basophils % 0.1 Basophils % (Manual) 0.0 Myelocytes % (Man) 0 Promyelocytes % (Man) 0 Blast Cells % (Manual) 0 Nucleated RBC % 9 H Metamyelocytes 3 H D Hypochromia 0 Platelet Estimate Decreased Polychromasia 1+ Poikilocytosis 1+ Basophilic Stippling 1+ Anisocytosis 1+ Microcytosis 0 Macrocytosis 1+ Chamberino Cells 1+ Anticoagulation Therapy No Result Required. Puncture Site Arterial line ABG pH 7.34 L ABG pCO2 at Pt Temp 33.4 L ABG pO2 at Pt Temp 212 H ABG HCO3 17.6 L ABG O2 Sat (Measured) 99.3 H ABG O2 Content 12.1 ABG Base Excess -6.9 L Orlin Test Positive O2 Delivery Device Vent Oxygen Flow Rate 40% Vent Mode A/c Vent Rate 24 Mechanical Rate Yes PEEP 12.0 Pressure Support Vent 450 Sodium 134 L Potassium 3.8 Chloride 102 Carbon Dioxide 20 L Anion Gap 11 BUN 58.0 H Creatinine 3.9 H Est GFR (CKD-EPI)AfAm 19.81 Est GFR (CKD-EPI)NonAf 17.10 POC Glucometer Random Glucose 129 H Calcium 8.6 Phosphorus 2.1 L Magnesium 2.1 Total Bilirubin 0.5 AST 28 ALT 71 H Alkaline Phosphatase 111 Total Protein 4.6 L Albumin 2.3 L Random Vancomycin Current Medications Acetaminophen (Tylenol -) 650 mg PO Q6H PRN PRN Reason: PAIN LEVEL 1-5 Albuterol/Ipratropium (Duoneb -) 1 amp NEB RQID [facility] Last Admin: 01/23/19 07:45 Dose: 1 amp Amino Acids (Prosource No Carb Liquid Pkt) 30 ml PO BID@0800,1730 [facility] Last Admin: 01/23/19 08:29 Dose: 30 ml Atorvastatin Calcium (Lipitor -) 10 mg PO HS [facility] Last Admin: 01/22/19 21:06 Dose: 10 mg Chlorhexidine Gluconate (Hibiclens For Decolonization -) 1 applic TP HS [facility] Last Admin: 01/22/19 21:03 Dose: 1 applic Dorzolamide HCl (Trusopt 2%) 1 drop OU BID [facility] Last Admin: 01/23/19 11:09 Dose: 1 drop Fludrocortisone Acetate (Florinef -) 0.05 mg PO DAILY [facility] Last Admin: 01/23/19 11:08 Dose: 0.05 mg Hydrocortisone Sodium Succinate (Solu-Cortef -) 50 mg IVPB Q6H [facility] Last Admin: 01/23/19 08:29 Dose: 50 mg Norepinephrine Bitartrate 8, (000 mcg/ Sodium Chloride) 500 mls @ 17.83 mls/hr IV ASDIR [facility]; Protocol Last Titration: 01/23/19 08:16 Dose: 0.06 mcg/kg/min, 35.67 mls/hr Piperacillin Sod/Tazobactam (Sod 2.25 gm/ Dextrose) 50 mls @ 100 mls/hr IVPB Q8H-IV [facility]; Protocol Last Admin: 01/23/19 09:19 Dose: 100 mls/hr Sodium Chloride (Normal Saline -) 250 mls @ 3,000 mls/hr IV PRN PRN PRN Reason: Hypotension during Dialysis Stop: 01/21/19 14:01 Vasopressin 50 units/ Sodium (Chloride) 100 mls @ 4 mls/hr IVPB ASDIR [facility]; Protocol Last Admin: 01/23/19 11:08 Dose: Not Given Famotidine/Sodium Chloride (Pepcid 20 Mg Premixed Ivpb -) 20 mg in 50 mls @ 100 mls/hr IVPB DAILY@0800 [facility] Last Admin: 01/23/19 08:27 Dose: 100 mls/hr Potassium Phosphate 15 mm/ (Sodium Chloride) 255 mls @ 62.5 mls/hr IVPB ONCE ONE Stop: 01/23/19 13:19 Last Admin: 01/23/19 11:07 Dose: 62.5 mls/hr Fentanyl 500 mcg/ Dextrose 100 mls @ 5 mls/hr IVPB TITR [facility]; Protocol Last Admin: 01/23/19 11:15 Dose: 25 mcg/hr, 5 mls/hr Insulin Aspart (Novolog Vial Sliding Scale -) 1 vial SQ Q4HPO [facility]; Protocol Last Admin: 01/23/19 05:55 Dose: Not Given Insulin Detemir (Levemir Vial) 16 units SQ AM [facility] Last Admin: 01/23/19 06:11 Dose: 16 units Insulin Detemir (Levemir Vial) 16 units SQ HS [facility] Last Admin: 01/22/19 21:45 Dose: 16 units Multi-Ingredient Lotion (Eucerin (Large Jar) -) 1 applic TP BID PRN PRN Reason: DRY SKIN Nystatin (Nystatin Oral Suspension -) 500,000 units PO Q6HPO [facility] Last Admin: 01/23/19 05:12 Dose: 500,000 units Rivaroxaban (Xarelto) 15 mg PO DAILY@1800 [facility] Last Admin: 01/22/19 18:43 Dose: 15 mg Triamcinolone Acetonide (Aristocort 0.025% Ointment -) 1 applic TP BID [facility] Last Admin: 01/23/19 11:09 Dose: 1 applic ASSESSMENT/PLAN: 48 yo M with PMH of morbid obesity, OHS, BONY, COPD, diastolic CHF, anemia, history of UGI bleeding, HTN, hyperthyroidism, DVTs, who was initially admitted for acute on chronic diastolic CHF. During hospital course( 01/14/19) patient was found hypotensive and lethargic, and was transferred to the ICU. on 01/21, pt was intubated 2/2 acute hypercapneic respiratory failure Neurology:Acute toxic metabolic encephalopathy -awake and alert Cardiology Hypervolemia -On Levophed drip 10, titrate as tolerated to MAP >65 -Cardiology (Dr. Chowdhury)recs appreciated - was on vaso over the weekend, was titrated off. HFpEF -holding lasix -last ECHO 01/11: nondiagnostic, limited in quality. nl EF. will consider repeat -strict I&O, fluid restrictions ID: Sepsis 2/2 proteus UTI -c/w Zosyn 3.375 q8h day 4 -ID (Dr. Calles)recs -vanc level Pulmonology: Acute hypercapnic resp failure, OHS, COPD -intubated. - c/w IV hydrocortisone 50 Q6h, Fludrocortisone PO 0.05 mg Renal: Hypervolemic hyponatremia, MARVA - continue to monitor volume status per A line pressure. -Na improved following dialysis, Uoutpt still low even with use of diuretics -Nephro recs appreciated -trend Na q 8-12 hrs -pt continues to be oliguric, plan for dialysis with ultrafiltration ( goal 3- 3.5L as tolerated) -Continue IVlasix 100( with goal of converting to non-oliguria) after dialysis and again tomorrow am -renal/ bladder u/s no evidence of hydronephrosis or obstruction. -will continue monitor I&O and Cr Hypokalemia -repleted -continue to monitor , goal K 4-4.5 Heme: Hx of DVT's -continue xarelto 20mg daily Derm-> desquamated skin - derm consult (Dr. West) appreciate recs. unlikely autoimmune, likely 2/2 edema and stasis dermatitis . continue w/ wound care and dressing - continue to monitor for worsening. Endo: Hypothyroid, DM -low T4, consider repeating TFTs -Endo recs appreciated -thyroid mass, neck u/s poor study due to body habitus. pt cannot fit in CT machine at [facility], unable to get rpt CT -patient had head and neck surgery evaluation at [facility] (Dr. Joon Waite) in 2016 and thyroidectomy recommended. head and neck re-evaluation appreciated -thyroid enlargement evident on examination, continues to show on imaging studies, per prior records prior biopsies have been negative -c/w levemir 20units bid -c/w ISS and BGM F/E/N -minimize IVF -routine bmp monitoring DVT Prophylaxis: -c/w Xarelto PO 20mg daily Dispo: continue ICU monitoring Visit type - Emergency Visit Emergency Visit: No - New Patient This patient is new to me today: No - Critical Care Critical Care patient: Yes Total Critical Care Time (in minutes): 36 Critical Care Statement: The care of this patient involved high complexity decision making to prevent further life threatening deterioration of the patient 's condition and/or to evaluate & treat vital organ system(s) failure or risk of failure. ATTENDING PHYSICIAN STATEMENT I saw and evaluated the patient. I reviewed the resident's note and discussed the case with the resident. I agree with the resident's findings and plan as documented. SUBJECTIVE: OBJECTIVE: ASSESSMENT AND PLAN:
--- NOTE | 2019-01-23 11:53 | PN ---
Progress Note, Physician Chief Complaint: patient seen and examined and now intubated on AC mode fio2 40% on NE iv - for BP support - Current Medication List Current Medications: Active Medications Acetaminophen (Tylenol -) 650 mg PO Q6H PRN PRN Reason: PAIN LEVEL 1-5 Albumin Human (Albumin Human 25%) 12.5 gm IVPB Q30M [facility] Stop: 01/23/19 13:31 Albuterol/Ipratropium (Duoneb -) 1 amp NEB RQID [facility] Last Admin: 01/23/19 07:45 Dose: 1 amp Amino Acids (Prosource No Carb Liquid Pkt) 30 ml PO BID@0800,1730 [facility] Last Admin: 01/23/19 08:29 Dose: 30 ml Atorvastatin Calcium (Lipitor -) 10 mg PO HS [facility] Last Admin: 01/22/19 21:06 Dose: 10 mg Chlorhexidine Gluconate (Hibiclens For Decolonization -) 1 applic TP HS [facility] Last Admin: 01/22/19 21:03 Dose: 1 applic Dorzolamide HCl (Trusopt 2%) 1 drop OU BID [facility] Last Admin: 01/23/19 11:09 Dose: 1 drop Fludrocortisone Acetate (Florinef -) 0.05 mg PO DAILY [facility] Last Admin: 01/23/19 11:08 Dose: 0.05 mg Hydrocortisone Sodium Succinate (Solu-Cortef -) 50 mg IVPB Q6H [facility] Last Admin: 01/23/19 08:29 Dose: 50 mg Norepinephrine Bitartrate 8, (000 mcg/ Sodium Chloride) 500 mls @ 17.83 mls/hr IV ASDIR [facility]; Protocol Last Titration: 01/23/19 08:16 Dose: 0.06 mcg/kg/min, 35.67 mls/hr Piperacillin Sod/Tazobactam (Sod 2.25 gm/ Dextrose) 50 mls @ 100 mls/hr IVPB Q8H-IV [facility]; Protocol Last Admin: 01/23/19 09:19 Dose: 100 mls/hr Vasopressin 50 units/ Sodium (Chloride) 100 mls @ 4 mls/hr IVPB ASDIR [facility]; Protocol Last Admin: 01/23/19 11:08 Dose: Not Given Famotidine/Sodium Chloride (Pepcid 20 Mg Premixed Ivpb -) 20 mg in 50 mls @ 100 mls/hr IVPB DAILY@0800 [facility] Last Admin: 01/23/19 08:27 Dose: 100 mls/hr Potassium Phosphate 15 mm/ (Sodium Chloride) 255 mls @ 62.5 mls/hr IVPB ONCE ONE Stop: 01/23/19 13:19 Last Admin: 01/23/19 11:07 Dose: 62.5 mls/hr Fentanyl 500 mcg/ Dextrose 100 mls @ 5 mls/hr IVPB TITR [facility]; Protocol Last Admin: 01/23/19 11:15 Dose: 25 mcg/hr, 5 mls/hr Sodium Chloride (Normal Saline -) 250 mls @ 3,000 mls/hr IV PRN PRN PRN Reason: Hypotension during Dialysis Stop: 01/24/19 11:32 Insulin Aspart (Novolog Vial Sliding Scale -) 1 vial SQ Q4HPO [facility]; Protocol Last Admin: 01/23/19 05:55 Dose: Not Given Insulin Detemir (Levemir Vial) 16 units SQ AM [facility] Last Admin: 01/23/19 06:11 Dose: 16 units Insulin Detemir (Levemir Vial) 16 units SQ HS [facility] Last Admin: 01/22/19 21:45 Dose: 16 units Multi-Ingredient Lotion (Eucerin (Large Jar) -) 1 applic TP BID PRN PRN Reason: DRY SKIN Nystatin (Nystatin Oral Suspension -) 500,000 units PO Q6HPO [facility] Last Admin: 01/23/19 05:12 Dose: 500,000 units Rivaroxaban (Xarelto) 15 mg PO DAILY@1800 [facility] Last Admin: 01/22/19 18:43 Dose: 15 mg Triamcinolone Acetonide (Aristocort 0.025% Ointment -) 1 applic TP BID [facility] Last Admin: 01/23/19 11:09 Dose: 1 applic - Objective Vital Signs: Vital Signs Temperature 95.9 F L 01/23/19 10:00 Pulse Rate 78 01/23/19 11:00 Respiratory Rate 24 H 01/23/19 11:00 Blood Pressure 113/80 01/23/19 11:00 O2 Sat by Pulse Oximetry (%) 98 01/23/19 08:18 Constitutional: Yes: Calm HENT: Yes: Other (intubated) Neck: Yes: Thyromegaly Cardiovascular: Yes: Regular Rate and Rhythm, S1, S2 Respiratory: Yes: Mechanically Ventilated Gastrointestinal: Yes: Soft, Abdomen, Obese Edema: Yes Labs: CBC, BMP 01/23/19 06:00 01/23/19 06:00 INR, PTT INR 1.65 (0.83-1.09) H 01/22/19 05:15 Problem List - Problems (1) Shock Assessment/Plan: on levophed and vasopressin keep MAP> 65 stress dose steroids iv abx Code(s): R57.9 - SHOCK, UNSPECIFIED (2) Acute renal insufficiency Assessment/Plan: HD/UF per renal Code(s): N28.9 - DISORDER OF KIDNEY AND URETER, UNSPECIFIED (3) Hypotension Assessment/Plan: on levopphed drip/ vasopressin monitor urine output floinef Code(s): I95.9 - HYPOTENSION, UNSPECIFIED (4) Hyponatremia Assessment/Plan: sodium 126 now 136 hypervolemia hyponatremia Code(s): E87.1 - HYPO-OSMOLALITY AND HYPONATREMIA (5) Hyperglycemia Assessment/Plan: hgAC1 noted 8.8 started on levemir bid endocrine note appreciated Code(s): R73.9 - HYPERGLYCEMIA, UNSPECIFIED (6) Acute exacerbation of chronic obstructive pulmonary disease (COPD) Assessment/Plan: stress dose steroids o2 to maintain saturation >90% intubated on AC mode fio2 40% Code(s): J44.1 - CHRONIC OBSTRUCTIVE PULMONARY DISEASE W (ACUTE) EXACERBATION (7) DVT of upper extremity (deep vein thrombosis) Assessment/Plan: on xarelto 15mg Code(s): I82.629 - ACUTE EMBOLISM AND THROMBOSIS OF DEEP VN UNSP UP EXTREM (8) Thrush, oral Assessment/Plan: nystatin swish spit-completed Code(s): B37.0 - CANDIDAL STOMATITIS (9) Hyperthyroidism Assessment/Plan: tapazole stopped euthyroid endocrine consult appreciated Code(s): E05.90 - THYROTOXICOSIS, UNSP WITHOUT THYROTOXIC CRISIS OR STORM (10) Pneumonia Assessment/Plan: zosyn Code(s): J18.9 - PNEUMONIA, UNSPECIFIED ORGANISM (11) Hearing loss Assessment/Plan: ent consult appreciate hearing aides audiology testing on discharge Code(s): H91.90 - UNSPECIFIED HEARING LOSS, UNSPECIFIED EAR (12) Thyromegaly Assessment/Plan: follow up at [facility] with the surgeon( head nad neck surgeon) Code(s): E01.0 - IODINE-DEFICIENCY RELATED DIFFUSE (ENDEMIC) GOITER (13) HLD (hyperlipidemia) Assessment/Plan: statin Code(s): E78.5 - HYPERLIPIDEMIA, UNSPECIFIED (14) Electrolyte abnormality Assessment/Plan: keep Mag> 2 potassium > 4 Code(s): E87.8 - OTH DISORDERS OF ELECTROLYTE AND FLUID BALANCE, NEC (15) Hypokalemia Assessment/Plan: will replete Code(s): E87.6 - HYPOKALEMIA (16) Acute on chronic diastolic CHF (congestive heart failure) Assessment/Plan: with bilateral pleural effusion and hyoptensive on levophed levophed Code(s): I50.33 - ACUTE ON CHRONIC DIASTOLIC (CONGESTIVE) HEART FAILURE
[2019-01-23] MEDS: NOREPINEPHRINE BITARTRATE 8,000 MCG in SODIUM CHLORIDE 492 ML IV SCH (13:00)
--- NOTE | 2019-01-23 13:37 | PN ---
Progress Note, Physician History of Present Illness: INTUBATED BREATHING NON-LABORED ON VENT REMAINS HYPOTENSIVE ON PRESSORS HYPOTHERMIC WBC WNL PLT LOWER VANCO T 28 - Current Medication List Current Medications: Active Medications Acetaminophen (Tylenol -) 650 mg PO Q6H PRN PRN Reason: PAIN LEVEL 1-5 Albuterol/Ipratropium (Duoneb -) 1 amp NEB RQID [facility] Last Admin: 01/23/19 11:45 Dose: 1 amp Amino Acids (Prosource No Carb Liquid Pkt) 30 ml PO BID@0800,1730 [facility] Last Admin: 01/23/19 08:29 Dose: 30 ml Atorvastatin Calcium (Lipitor -) 10 mg PO HS [facility] Last Admin: 01/22/19 21:06 Dose: 10 mg Chlorhexidine Gluconate (Hibiclens For Decolonization -) 1 applic TP HS [facility] Last Admin: 01/22/19 21:03 Dose: 1 applic Dorzolamide HCl (Trusopt 2%) 1 drop OU BID [facility] Last Admin: 01/23/19 11:09 Dose: 1 drop Fludrocortisone Acetate (Florinef -) 0.05 mg PO DAILY [facility] Last Admin: 01/23/19 11:08 Dose: 0.05 mg Hydrocortisone Sodium Succinate (Solu-Cortef -) 50 mg IVPB Q6H [facility] Last Admin: 01/23/19 08:29 Dose: 50 mg Norepinephrine Bitartrate 8, (000 mcg/ Sodium Chloride) 500 mls @ 17.83 mls/hr IV ASDIR [facility]; Protocol Last Titration: 01/23/19 08:16 Dose: 0.06 mcg/kg/min, 35.67 mls/hr Piperacillin Sod/Tazobactam (Sod 2.25 gm/ Dextrose) 50 mls @ 100 mls/hr IVPB Q8H-IV [facility]; Protocol Last Admin: 01/23/19 09:19 Dose: 100 mls/hr Vasopressin 50 units/ Sodium (Chloride) 100 mls @ 4 mls/hr IVPB ASDIR [facility]; Protocol Last Admin: 01/23/19 11:08 Dose: Not Given Famotidine/Sodium Chloride (Pepcid 20 Mg Premixed Ivpb -) 20 mg in 50 mls @ 100 mls/hr IVPB DAILY@0800 [facility] Last Admin: 01/23/19 08:27 Dose: 100 mls/hr Fentanyl 500 mcg/ Dextrose 100 mls @ 5 mls/hr IVPB TITR [facility]; Protocol Last Admin: 01/23/19 11:15 Dose: 25 mcg/hr, 5 mls/hr Sodium Chloride (Normal Saline -) 250 mls @ 3,000 mls/hr IV PRN PRN PRN Reason: Hypotension during Dialysis Stop: 01/24/19 11:32 Insulin Aspart (Novolog Vial Sliding Scale -) 1 vial SQ Q4HPO [facility]; Protocol Last Admin: 01/23/19 11:52 Dose: Not Given Insulin Detemir (Levemir Vial) 16 units SQ AM [facility] Last Admin: 01/23/19 06:11 Dose: 16 units Insulin Detemir (Levemir Vial) 16 units SQ HS [facility] Last Admin: 01/22/19 21:45 Dose: 16 units Multi-Ingredient Lotion (Eucerin (Large Jar) -) 1 applic TP BID PRN PRN Reason: DRY SKIN Nystatin (Nystatin Oral Suspension -) 500,000 units PO Q6HPO [facility] Last Admin: 01/23/19 11:53 Dose: 500,000 units Rivaroxaban (Xarelto) 15 mg PO DAILY@1800 [facility] Last Admin: 01/22/19 18:43 Dose: 15 mg Silver Sulfadiazine (Silvadene -) 1 applic TP BID [facility] Triamcinolone Acetonide (Aristocort 0.025% Ointment -) 1 applic TP BID [facility] Last Admin: 01/23/19 11:09 Dose: 1 applic - Objective Vital Signs: Vital Signs Temperature 97.2 F L 01/23/19 12:00 Pulse Rate 86 01/23/19 12:15 Respiratory Rate 20 01/23/19 12:15 Blood Pressure 112/73 01/23/19 12:15 O2 Sat by Pulse Oximetry (%) 100 01/23/19 12:44 Constitutional: Yes: No Distress, Obese Cardiovascular: Yes: Regular Rate and Rhythm, S1, S2 Respiratory: Yes: Mechanically Ventilated Gastrointestinal: Yes: Normal Bowel Sounds, Soft. No: Tenderness Edema: Yes Labs: CBC, BMP 01/23/19 06:00 01/23/19 06:00 INR, PTT INR 1.65 (0.83-1.09) H 01/22/19 05:15 Assessment/Plan PERSISTANT HYPOTENSION ? SEPTIC SHOCK CHF COPD ? HCAP LEUKOCYTOSIS RESOLVED RENAL FAILURE MORBID OBESITY CONTINUE EMPIRIC ZOSYN REPEAT VANCO LEVEL
--- NOTE | 2019-01-23 13:48 | PN ---
Progress Note (short form) - Note Progress Note: Renal follow up for hyponatremia Seen and examined in the ICU intubated over the weekend for airway management Last had dialysis/ultrafiltration on Wednesday with 2.5 L removed Remains oliguric now Still requiring Levothroid for blood pressure control Vital Signs Temperature 97.2 F L 01/23/19 12:00 Pulse Rate 84 01/23/19 13:42 Respiratory Rate 24 H 01/23/19 13:42 Blood Pressure 105/75 01/23/19 13:42 O2 Sat by Pulse Oximetry (%) 100 01/23/19 12:44 Intake & Output 01/20/19 01/21/19 01/22/19 01/23/19 23:59 23:59 23:59 23:59 Intake Total 1742 2346.5 2039 960 Output Total 2900 220 120 50 Balance -1158 2126.5 1919 910 Weight 162.431 kg 162.431 kg 163.021 kg 163.021 kg NAD trace LE edema CBC, BMP 01/23/19 06:00 01/23/19 06:00 Current Medications Acetaminophen (Tylenol -) 650 mg PO Q6H PRN PRN Reason: PAIN LEVEL 1-5 Albuterol/Ipratropium (Duoneb -) 1 amp NEB RQID [facility] Last Admin: 01/23/19 11:45 Dose: 1 amp Amino Acids (Prosource No Carb Liquid Pkt) 30 ml PO BID@0800,1730 [facility] Last Admin: 01/23/19 08:29 Dose: 30 ml Atorvastatin Calcium (Lipitor -) 10 mg PO HS [facility] Last Admin: 01/22/19 21:06 Dose: 10 mg Chlorhexidine Gluconate (Hibiclens For Decolonization -) 1 applic TP HS [facility] Last Admin: 01/22/19 21:03 Dose: 1 applic Dorzolamide HCl (Trusopt 2%) 1 drop OU BID [facility] Last Admin: 01/23/19 11:09 Dose: 1 drop Fludrocortisone Acetate (Florinef -) 0.05 mg PO DAILY [facility] Last Admin: 01/23/19 11:08 Dose: 0.05 mg Hydrocortisone Sodium Succinate (Solu-Cortef -) 50 mg IVPB Q6H [facility] Last Admin: 01/23/19 08:29 Dose: 50 mg Norepinephrine Bitartrate 8, (000 mcg/ Sodium Chloride) 500 mls @ 17.83 mls/hr IV ASDIR [facility]; Protocol Last Titration: 01/23/19 08:16 Dose: 0.06 mcg/kg/min, 35.67 mls/hr Piperacillin Sod/Tazobactam (Sod 2.25 gm/ Dextrose) 50 mls @ 100 mls/hr IVPB Q8H-IV [facility]; Protocol Last Admin: 01/23/19 09:19 Dose: 100 mls/hr Vasopressin 50 units/ Sodium (Chloride) 100 mls @ 4 mls/hr IVPB ASDIR [facility]; Protocol Last Admin: 01/23/19 11:08 Dose: Not Given Famotidine/Sodium Chloride (Pepcid 20 Mg Premixed Ivpb -) 20 mg in 50 mls @ 100 mls/hr IVPB DAILY@0800 [facility] Last Admin: 01/23/19 08:27 Dose: 100 mls/hr Fentanyl 500 mcg/ Dextrose 100 mls @ 5 mls/hr IVPB TITR [facility]; Protocol Last Admin: 01/23/19 11:15 Dose: 25 mcg/hr, 5 mls/hr Sodium Chloride (Normal Saline -) 250 mls @ 3,000 mls/hr IV PRN PRN PRN Reason: Hypotension during Dialysis Stop: 01/24/19 11:32 Insulin Aspart (Novolog Vial Sliding Scale -) 1 vial SQ Q4HPO [facility]; Protocol Last Admin: 01/23/19 11:52 Dose: Not Given Insulin Detemir (Levemir Vial) 16 units SQ AM [facility] Last Admin: 01/23/19 06:11 Dose: 16 units Insulin Detemir (Levemir Vial) 16 units SQ HS [facility] Last Admin: 01/22/19 21:45 Dose: 16 units Multi-Ingredient Lotion (Eucerin (Large Jar) -) 1 applic TP BID PRN PRN Reason: DRY SKIN Nystatin (Nystatin Oral Suspension -) 500,000 units PO Q6HPO [facility] Last Admin: 01/23/19 11:53 Dose: 500,000 units Rivaroxaban (Xarelto) 15 mg PO DAILY@1800 [facility] Last Admin: 01/22/19 18:43 Dose: 15 mg Silver Sulfadiazine (Silvadene -) 1 applic TP BID [facility] Triamcinolone Acetonide (Aristocort 0.025% Ointment -) 1 applic TP BID [facility] Last Admin: 01/23/19 11:09 Dose: 1 applic 48 year old gentleman with history of morbid obesity, COPD, BONY , diastolic heart failure, anemia, hypertension, hypothyrodism, DVT presented with back pain from the MS and found to have hyponatremia with serum Na of 123. 1. Hypervolemic hyponatremia 2. Diastolic CHF with pleural effusions 3. Acute on chronic lower back pain 4. Morbid obesity 5. COPD/BONY 6. Hypotension/shock r/o sepsis 7. Acute renal failure secondary to sepsis 8. Hypokalemia we will plan for dialysis with ultrafiltration today for management of acute kidney injury and fluid overload as patient remains oliguric Continue hemodynamic support with Levophed with goal map greater than 65 We will aim for ultrafiltration goal of 3-3.5 L today as tolerated Continue IV diuretics with goal of converting to non-oliguria Continue vent support as per ICU continue empiric antibiotics as per ID Overall prognosis is guarded we will continue dialysis/UF until renal function improves Thank you Dennis Aldana DO
[2019-01-23] MEDS ORDERED: FUROSEMIDE INJECTION 100 MG in SODIUM CHLORIDE 40 ML IVPB SCH (14:30)
[2019-01-23] MEDS: ALBUMIN HUMAN 25% 12.5 GM/50 ML VIAL IVPB SCH ×4 (16:28→16:33)
[2019-01-23 16:44] LABS: BLOOD UREA NITROGEN 43.9 mg/dL (7-18); CREATININE 3.1 mg/dL (0.55-1.3)
[2019-01-23 16:45] LABS: ALBUMIN 3.2 g/dl (3.4-5.0); BILIRUBIN,TOTAL 0.7 mg/dL (0.2-1); CALCIUM 9.3 mg/dL (8.5-10.1); PHOSPHOROUS 2.3 mg/dL (2.5-4.9); POTASSIUM 3.6 mmol/L (3.5-5.1); TOT PROT 5.6 g/dl (6.4-8.2)
[2019-01-23] MEDS: SILVER SULFADIAZINE 1% TOP CREAM 50 GM JAR TP SCH ×2 (17:01→21:33)
[2019-01-23] MEDS: RIVAROXABAN 15 MG TABLET PO SCH (17:26)
[2019-01-23] MEDS ORDERED: FUROSEMIDE 100 MG/10 ML INJECTABLE VIAL IVPB ONE (19:00)
--- NOTE | 2019-01-23 21:29 | PN ---
Progress Note (short form) - Note Progress Note: Case presented to d/w Dr. Diamond - [facility] attending. Tentatively accepted pt, will start insurance authorization process. States that not many beds available currently. Awaiting further info.
[2019-01-23] MEDS: CHLORHEXIDINE GLUCONATE 4% CLEANSER FOR DECOLONIZATION TP SCH (21:31)
[2019-01-23] MEDS: ATORVASTATIN CA 10 MG TABLET (FP) PO SCH (21:31)
[2019-01-24] MEDS: NYSTATIN 500,000 UNITS/5 ML SUSPENSION PO SCH ×4 (00:35→17:12)
[2019-01-24] MEDS ORDERED: PIPERACILLIN/TAZOBACTAM 2.25 GM VIAL IVPB ONE ×3 (01:37→15:20)
[2019-01-24] MEDS ORDERED: DEXTROSE 5%-WATER - 50 ML IVPB ONE ×3 (01:37→15:21)
[2019-01-24] MEDS ORDERED: fentaNYL CITRATE 250 MCG/5 ML VIAL ONE ×5 (01:38→23:54)
[2019-01-24] MEDS: INSULIN SLIDING SCALE (NOVOLOG) 1 VIAL SQ SCH ×6 (01:40→22:01)
[2019-01-24] MEDS: FENTANYL INJECTION 500 MCG in DEXTROSE 5%-WATER - 90 ML IVPB SCH ×4 (01:47→19:09)
[2019-01-24] MEDS: HYDROCORTISONE SOD SUCCINATE 100 MG/2 ML VIAL IVPB SCH ×4 (01:48→20:23)
[2019-01-24] MEDS: PIPERACILLIN/TAZOB 2.25 GM 2.25 GM in DEXTROSE 5%-WATER - 50 ML IVPB SCH ×3 (01:48→17:12)
[2019-01-24] MEDS: INSULIN (LEVEMIR) 100 UNITS/ML UNITS SQ SCH ×2 (06:40→22:01)
[2019-01-24 07:32] LABS: BASO % 0.2 % (0-2.0); EOS % 0.1 % (0-4.5); HEMATOCRIT 23.1 % (35.4-49); HEMOGLOBIN 7.9 GM/dL (11.7-16.9); MCHC 34.3 g/dl (32.0-35.9); MEAN CELL VOLUME 93.2 fl (80-96); MEAN PLT VOLUME 7.9 fl (7.5-11.1); MONO % 1.5 % (3.8-10.2); NEUT % 95.2 % (42.8-82.8); PLATELET COUNT 66 K/MM3 (134-434); RBC 2.47 M/mm3 (4.00-5.60); RDW 15.1 % (11.9-15.9)
[2019-01-24 07:47] LABS: ALBUMIN 2.4 g/dl (3.4-5.0); BILIRUBIN,TOTAL 0.6 mg/dL (0.2-1); BLOOD UREA NITROGEN 56.6 mg/dL (7-18); CALCIUM 8.7 mg/dL (8.5-10.1); CREATININE 3.7 mg/dL (0.55-1.3); MAGNESIUM 1.9 mg/dL (1.8-2.4); PHOSPHOROUS 2.5 mg/dL (2.5-4.9); POTASSIUM 3.5 mmol/L (3.5-5.1); TOT PROT 4.6 g/dl (6.4-8.2)
[2019-01-24] MEDS: ALBUTEROL SO4 2.5/IPRATROPIUM 0.5 INH SOL 3 ML VIAL.NEB. NEB SCH ×4 (07:50→21:20)
[2019-01-24 08:34] LABS: CORRECTED WBC 7.98 K/mm3; WHITE BLOOD COUNT 9.1 K/mm3 (4.0-10.0)
[2019-01-24] MEDS ORDERED: FUROSEMIDE 100 MG/10 ML INJECTABLE VIAL ONE (08:36)
[2019-01-24] MEDS: FAMOTIDINE 20 MG/50 ML IVPB 20 MG/50 ML MG IVPB SCH (08:40)
[2019-01-24] MEDS: AMINO ACIDS/PROTEIN HYDROLYS 30 ML LIQUID.PKT PO SCH ×2 (08:41→17:12)
[2019-01-24] MEDS: FLUDROCORTISONE ACETATE 0.1 MG TABLET (FP) PO SCH (09:14)
[2019-01-24] MEDS: SILVER SULFADIAZINE 1% TOP CREAM 50 GM JAR TP SCH ×2 (09:19→22:00)
[2019-01-24] MEDS: TRIAMCINOLONE ACET 0.025% OINTMENT 15 GM TUBE TP SCH ×2 (09:19→22:02)
[2019-01-24] MEDS: DORZOLAMIDE 2% HCL OPHTHALMIC SOLUTION 10 ML BOTTLE OU SCH ×2 (09:20→22:02)
[2019-01-24] MEDS ORDERED: FUROSEMIDE 100 MG/10 ML INJECTABLE VIAL IVPB ONE ×2 (10:00→14:30)
[2019-01-24] MEDS: NOREPINEPHRINE BITARTRATE 8,000 MCG in SODIUM CHLORIDE 492 ML IV SCH (10:37)
--- NOTE | 2019-01-24 10:41 | PN ---
Teaching Attending Note Name of Resident: Bernie Randall ATTENDING PHYSICIAN STATEMENT I saw and evaluated the patient. I reviewed the resident's note and discussed the case with the resident. I agree with the resident's findings and plan as documented. SUBJECTIVE: Patient seen and examined in the ICU. Intubated. AC Mode of vent, 40% FiO2 and PEEP 7. Arousable to voice commands. Moving all extremities. 0.05 mcq/kg NE for hemodynamic support. Intake & Output 01/21/19 01/22/19 01/23/19 01/24/19 23:59 23:59 23:59 23:59 Intake Total 2346.5 2039 3385 732.5 Output Total 740 355 6298 20 Balance 2126.5 1919 -535 712.5 Weight 358 lb 1.6 oz 359 lb 6.4 oz 359 lb 6.4 oz 351 lb 1.6 oz Last Vital Signs Temp Pulse Resp BP Pulse Ox 97.1 F L 92 H 24 H 109/57 L 100 01/24/19 10:00 01/24/19 10:31 01/24/19 10:00 01/24/19 10:31 01/24/19 09:00 Active Medications Acetaminophen (Tylenol -) 650 mg PO Q6H PRN PRN Reason: PAIN LEVEL 1-5 Albuterol/Ipratropium (Duoneb -) 1 amp NEB RQID [facility] Last Admin: 01/24/19 07:50 Dose: 1 amp Amino Acids (Prosource No Carb Liquid Pkt) 30 ml PO BID@0800,1730 [facility] Last Admin: 01/24/19 08:41 Dose: 30 ml Atorvastatin Calcium (Lipitor -) 10 mg PO HS [facility] Last Admin: 01/23/19 21:31 Dose: 10 mg Chlorhexidine Gluconate (Hibiclens For Decolonization -) 1 applic TP HS [facility] Last Admin: 01/23/19 21:31 Dose: 1 applic Dorzolamide HCl (Trusopt 2%) 1 drop OU BID [facility] Last Admin: 01/24/19 09:20 Dose: 1 drop Fludrocortisone Acetate (Florinef -) 0.05 mg PO DAILY [facility] Last Admin: 01/24/19 09:14 Dose: 0.05 mg Hydrocortisone Sodium Succinate (Solu-Cortef -) 50 mg IVPB Q6H [facility] Last Admin: 01/24/19 08:41 Dose: 50 mg Norepinephrine Bitartrate 8, (000 mcg/ Sodium Chloride) 500 mls @ 17.83 mls/hr IV ASDIR [facility]; Protocol Last Titration: 01/24/19 10:31 Dose: 0.03 mcg/kg/min, 17.83 mls/hr Piperacillin Sod/Tazobactam (Sod 2.25 gm/ Dextrose) 50 mls @ 100 mls/hr IVPB Q8H-IV [facility]; Protocol Last Admin: 01/24/19 09:14 Dose: 100 mls/hr Famotidine/Sodium Chloride (Pepcid 20 Mg Premixed Ivpb -) 20 mg in 50 mls @ 100 mls/hr IVPB DAILY@0800 [facility] Last Admin: 01/24/19 08:40 Dose: 100 mls/hr Fentanyl 500 mcg/ Dextrose 100 mls @ 5 mls/hr IVPB TITR [facility]; Protocol Last Admin: 01/24/19 08:43 Dose: 100 mcg/hr, 20 mls/hr Sodium Chloride (Normal Saline -) 250 mls @ 3,000 mls/hr IV PRN PRN PRN Reason: Hypotension during Dialysis Stop: 01/24/19 11:32 Insulin Aspart (Novolog Vial Sliding Scale -) 1 vial SQ Q4HPO [facility]; Protocol Last Admin: 01/24/19 06:39 Dose: 5 units Insulin Detemir (Levemir Vial) 16 units SQ AM [facility] Last Admin: 01/24/19 06:40 Dose: 16 units Insulin Detemir (Levemir Vial) 16 units SQ HS [facility] Last Admin: 01/23/19 21:31 Dose: 16 units Multi-Ingredient Lotion (Eucerin (Large Jar) -) 1 applic TP BID PRN PRN Reason: DRY SKIN Last Admin: 01/24/19 09:21 Dose: 1 applic Nystatin (Nystatin Oral Suspension -) 500,000 units PO Q6HPO [facility] Last Admin: 01/24/19 06:39 Dose: 500,000 units Rivaroxaban (Xarelto) 15 mg PO DAILY@1800 [facility] Last Admin: 01/23/19 17:26 Dose: 15 mg Silver Sulfadiazine (Silvadene -) 1 applic TP BID [facility] Last Admin: 01/24/19 09:19 Dose: 1 applic Triamcinolone Acetonide (Aristocort 0.025% Ointment -) 1 applic TP BID [facility] Last Admin: 01/24/19 09:19 Dose: 1 applic Exam: General: intubated, lightly sedated, awakens to voice command HEENT: periorbital edema, scleral edema, PERRL CV: RRR, distant heart sounds Pulm: coarse bilateral, bronchial in bilateral bases Abd: Obese, soft, +BS Ext: +4 edema, multiple areas w skin tears Neuro: non-focal Laboratory Results - last 24 hr 01/23/19 01/23/19 01/23/19 06:00 11:43 15:40 Corrected WBC (auto) RBC Hgb Hct MCV MCH MCHC RDW Plt Count MPV Absolute Neuts (auto) Neutrophils % Neutrophils % (Manual) 85.0 H Band Neutrophils % 3.0 Lymphocytes % Lymphocytes % (Manual) 3.0 L Monocytes % Monocytes % (Manual) 3 L Eosinophils % Eosinophils % (Manual) 0.0 Basophils % Basophils % (Manual) 0.0 Myelocytes % (Man) 0 Promyelocytes % (Man) 0 Blast Cells % (Manual) 0 Metamyelocytes 3 H D Hypochromia 0 Platelet Estimate Decreased Polychromasia 1+ Poikilocytosis 1+ Basophilic Stippling 1+ Anisocytosis 1+ Microcytosis 0 Macrocytosis 1+ Phan Cells 1+ Sodium 136 Potassium 3.6 Chloride 101 Carbon Dioxide 23 Anion Gap 12 BUN 43.9 H Creatinine 3.1 H Est GFR (CKD-EPI)AfAm 26.15 Est GFR (CKD-EPI)NonAf 22.56 POC Glucometer 138 Random Glucose 127 H Calcium 9.3 Phosphorus 2.3 L Magnesium 2.0 Total Bilirubin 0.7 AST 34 ALT 83 H Alkaline Phosphatase 137 H Total Protein 5.6 L Albumin 3.2 L Random Vancomycin 01/23/19 01/23/19 01/24/19 18:04 21:21 01:26 Corrected WBC (auto) RBC Hgb Hct MCV MCH MCHC RDW Plt Count MPV Absolute Neuts (auto) Neutrophils % Neutrophils % (Manual) Band Neutrophils % Lymphocytes % Lymphocytes % (Manual) Monocytes % Monocytes % (Manual) Eosinophils % Eosinophils % (Manual) Basophils % Basophils % (Manual) Myelocytes % (Man) Promyelocytes % (Man) Blast Cells % (Manual) Metamyelocytes Hypochromia Platelet Estimate Polychromasia Poikilocytosis Basophilic Stippling Anisocytosis Microcytosis Macrocytosis [place] Cells Sodium Potassium Chloride Carbon Dioxide Anion Gap BUN Creatinine Est GFR (CKD-EPI)AfAm Est GFR (CKD-EPI)NonAf POC Glucometer 190 239 196 Random Glucose Calcium Phosphorus Magnesium Total Bilirubin AST ALT Alkaline Phosphatase Total Protein Albumin Random Vancomycin 01/24/19 01/24/19 01/24/19 06:05 06:05 06:05 Corrected WBC (auto) 7.98 RBC 2.47 L Hgb 7.9 L Hct 23.1 L MCV 93.2 MCH 32.0 MCHC 34.3 RDW 15.1 Plt Count 66 L D MPV 7.9 Absolute Neuts (auto) 7.5 Neutrophils % 95.2 H Neutrophils % (Manual) Band Neutrophils % Lymphocytes % 3.0 L D Lymphocytes % (Manual) Monocytes % 1.5 L Monocytes % (Manual) Eosinophils % 0.1 Eosinophils % (Manual) Basophils % 0.2 Basophils % (Manual) Myelocytes % (Man) Promyelocytes % (Man) Blast Cells % (Manual) Metamyelocytes Hypochromia Platelet Estimate Polychromasia Poikilocytosis Basophilic Stippling Anisocytosis Microcytosis Macrocytosis Phan Cells Sodium 135 L Potassium 3.5 Chloride 104 Carbon Dioxide 20 L Anion Gap 12 BUN 56.6 H Creatinine 3.7 H Est GFR (CKD-EPI)AfAm 21.12 Est GFR (CKD-EPI)NonAf 18.22 POC Glucometer Random Glucose 169 H Calcium 8.7 Phosphorus 2.5 Magnesium 1.9 Total Bilirubin 0.6 AST 30 ALT 71 H Alkaline Phosphatase 121 H Total Protein 4.6 L Albumin 2.4 L Random Vancomycin 25.3 01/24/19 06:06 Corrected WBC (auto) RBC Hgb Hct MCV MCH MCHC RDW Plt Count MPV Absolute Neuts (auto) Neutrophils % Neutrophils % (Manual) Band Neutrophils % Lymphocytes % Lymphocytes % (Manual) Monocytes % Monocytes % (Manual) Eosinophils % Eosinophils % (Manual) Basophils % Basophils % (Manual) Myelocytes % (Man) Promyelocytes % (Man) Blast Cells % (Manual) Metamyelocytes Hypochromia Platelet Estimate Polychromasia Poikilocytosis Basophilic Stippling Anisocytosis Microcytosis Macrocytosis Phan Cells Sodium Potassium Chloride Carbon Dioxide Anion Gap BUN Creatinine Est GFR (CKD-EPI)AfAm Est GFR (CKD-EPI)NonAf POC Glucometer 164 Random Glucose Calcium Phosphorus Magnesium Total Bilirubin AST ALT Alkaline Phosphatase Total Protein Albumin Random Vancomycin IMP: Shock (Acute) Acute on chronic respiratory failure with hypoxia and hypercapnia (Acute) DM Bilateral lower extremity edema (Acute) COPD exacerbation (Acute) Cellulitis of left leg (Acute) Chronic respiratory failure with hypoxia and hypercapnia (Acute) Dvt femoral (deep venous thrombosis) (Acute) Goiter (Acute) Morbid obesity with BMI of 50.0-59.9, adult (Acute) Obesity hypoventilation syndrome (Acute) Obstructive apnea (Acute) Pneumonia (Acute) Pulmonary hypertension (Acute) Sepsis (Acute) (?) Thyroid mass Plan: Wean pressors to keep MAP > 65 Strict I & O ABX per ID Enteral feeds AC Follow pending cultures Stress does steroids Glycemic control PPI Thyroid US was ordered but unable to be performed due to anatomy and central access Overall prognosis is remains guarded Dr Arellano Critical care time spent in reviewing chart, evaluating patient and formulating plan - 36 minutes.
--- NOTE | 2019-01-24 11:06 | PN ---
Progress Note, Physician Chief Complaint: Chest pain Pneumonia History of Present Illness: Intubated overnight Still on Levophed maintaining MAP >65 mm Hg Oliguric Had HD yesterday Mother at bedside - Current Medication List Current Medications: Active Medications Acetaminophen (Tylenol -) 650 mg PO Q6H PRN PRN Reason: PAIN LEVEL 1-5 Albuterol/Ipratropium (Duoneb -) 1 amp NEB RQID [facility] Last Admin: 01/24/19 07:50 Dose: 1 amp Amino Acids (Prosource No Carb Liquid Pkt) 30 ml PO BID@0800,1730 [facility] Last Admin: 01/24/19 08:41 Dose: 30 ml Atorvastatin Calcium (Lipitor -) 10 mg PO HS [facility] Last Admin: 01/23/19 21:31 Dose: 10 mg Chlorhexidine Gluconate (Hibiclens For Decolonization -) 1 applic TP HS [facility] Last Admin: 01/23/19 21:31 Dose: 1 applic Dorzolamide HCl (Trusopt 2%) 1 drop OU BID [facility] Last Admin: 01/24/19 09:20 Dose: 1 drop Fludrocortisone Acetate (Florinef -) 0.05 mg PO DAILY [facility] Last Admin: 01/24/19 09:14 Dose: 0.05 mg Hydrocortisone Sodium Succinate (Solu-Cortef -) 50 mg IVPB Q6H [facility] Last Admin: 01/24/19 08:41 Dose: 50 mg Norepinephrine Bitartrate 8, (000 mcg/ Sodium Chloride) 500 mls @ 17.83 mls/hr IV ASDIR [facility]; Protocol Last Titration: 01/24/19 10:31 Dose: 0.03 mcg/kg/min, 17.83 mls/hr Piperacillin Sod/Tazobactam (Sod 2.25 gm/ Dextrose) 50 mls @ 100 mls/hr IVPB Q8H-IV [facility]; Protocol Last Admin: 01/24/19 09:14 Dose: 100 mls/hr Famotidine/Sodium Chloride (Pepcid 20 Mg Premixed Ivpb -) 20 mg in 50 mls @ 100 mls/hr IVPB DAILY@0800 [facility] Last Admin: 01/24/19 08:40 Dose: 100 mls/hr Fentanyl 500 mcg/ Dextrose 100 mls @ 5 mls/hr IVPB TITR [facility]; Protocol Last Admin: 01/24/19 08:43 Dose: 100 mcg/hr, 20 mls/hr Sodium Chloride (Normal Saline -) 250 mls @ 3,000 mls/hr IV PRN PRN PRN Reason: Hypotension during Dialysis Stop: 01/24/19 11:32 Insulin Aspart (Novolog Vial Sliding Scale -) 1 vial SQ Q4HPO [facility]; Protocol Last Admin: 01/24/19 11:04 Dose: Not Given Insulin Detemir (Levemir Vial) 16 units SQ AM [facility] Last Admin: 01/24/19 06:40 Dose: 16 units Insulin Detemir (Levemir Vial) 16 units SQ HS [facility] Last Admin: 01/23/19 21:31 Dose: 16 units Multi-Ingredient Lotion (Eucerin (Large Jar) -) 1 applic TP BID PRN PRN Reason: DRY SKIN Last Admin: 01/24/19 09:21 Dose: 1 applic Nystatin (Nystatin Oral Suspension -) 500,000 units PO Q6HPO [facility] Last Admin: 01/24/19 06:39 Dose: 500,000 units Rivaroxaban (Xarelto) 15 mg PO DAILY@1800 [facility] Last Admin: 01/23/19 17:26 Dose: 15 mg Silver Sulfadiazine (Silvadene -) 1 applic TP BID [facility] Last Admin: 01/24/19 09:19 Dose: 1 applic Triamcinolone Acetonide (Aristocort 0.025% Ointment -) 1 applic TP BID [facility] Last Admin: 01/24/19 09:19 Dose: 1 applic - Objective Vital Signs: Vital Signs Temperature 97.1 F L 01/24/19 10:00 Pulse Rate 92 H 01/24/19 10:31 Respiratory Rate 24 H 01/24/19 10:00 Blood Pressure 109/57 L 01/24/19 10:31 O2 Sat by Pulse Oximetry (%) 100 01/24/19 09:00 Constitutional: Yes: Well Nourished, No Distress, Calm, Obese Cardiovascular: Yes: Regular Rate and Rhythm Respiratory: Yes: Mechanically Ventilated, Rhonchi (diffuse) Gastrointestinal: Yes: Normal Bowel Sounds, Soft, Abdomen, Obese Genitourinary: Yes: [place] Present, Oliguria Musculoskeletal: Yes: Muscle Weakness (generalized atrophy) Edema: Yes (BLLE Non pitting edema) Peripheral Pulses WNL: Yes Neurological: Yes: Alert (to voice commands) Labs: CBC, BMP 01/24/19 06:05 01/24/19 06:05 INR, PTT INR 1.65 (0.83-1.09) H 01/22/19 05:15 Problem List - Problems (1) Acute exacerbation of chronic obstructive pulmonary disease (COPD) Assessment/Plan: -Pulmonary consult -IV abx -Bronchodilators -Mechanical vent -On Solucortef Problems reviewed: Yes Code(s): J44.1 - CHRONIC OBSTRUCTIVE PULMONARY DISEASE W (ACUTE) EXACERBATION (2) Morbid obesity Assessment/Plan: -On nepro -Seen by Nutrition -A1c 8.8 Problems reviewed: Yes Code(s): E66.01 - MORBID (SEVERE) OBESITY DUE TO EXCESS CALORIES (3) Pneumonia Assessment/Plan: -Pulmonary consult -IV abx -Bronchodilators -Mechanical vent -ID consult -IV abx -Blood Cultures pending -Legionella UC negative -CXR reviewed -Overall poor prognosis Problems reviewed: Yes Code(s): J18.9 - PNEUMONIA, UNSPECIFIED ORGANISM (4) Acute on chronic diastolic CHF (congestive heart failure) Assessment/Plan: -Pulmonary consult -IV abx -Bronchodilators -ID consult -IV diuresis on hold -Cardiology consult -fluid restriction -monitor I&O's Problems reviewed: Yes Code(s): I50.33 - ACUTE ON CHRONIC DIASTOLIC (CONGESTIVE) HEART FAILURE (5) Hyponatremia Assessment/Plan: -Nephrology consult -improved - fluid restriction -Monitor trend Problems reviewed: Yes Code(s): E87.1 - HYPO-OSMOLALITY AND HYPONATREMIA (6) Diabetes Assessment/Plan: -A1c at 8.8 -BGM AC HS -Levemir 16 U BID -ISS Problems reviewed: Yes Code(s): E11.9 - TYPE 2 DIABETES MELLITUS WITHOUT COMPLICATIONS (7) Bullous dermatitis Assessment/Plan: -BLLE -Seen by dermatology -Apply triamcinolone BLLE Problems reviewed: Yes Code(s): L13.9 - BULLOUS DISORDER, UNSPECIFIED (8) Goiter Assessment/Plan: -Will need workup at tertiary care center -U/S unable to do due to anatomy and CVC Problems reviewed: Yes Code(s): E04.9 - NONTOXIC GOITER, UNSPECIFIED Assessment/Plan (8) Shock Assessment/Plan: -Continue levophed -Titrate as pt improves Code(s): R57.9 - SHOCK, UNSPECIFIED (9) Acute renal insufficiency Assessment/Plan: -HD/UF per renal -lasix 100 mg IVP BID-on hold for now -Nephrology on board Code(s): N28.9 - DISORDER OF KIDNEY AND URETER, UNSPECIFIED (10) Hypotension Assessment/Plan: -Continue levophed -Titrate as pt improves -On solucortef Code(s): I95.9 - HYPOTENSION, UNSPECIFIED (11) DVT of upper extremity (deep vein thrombosis) Assessment/Plan: -on xarelto 15mg Code(s): I82.629 - ACUTE EMBOLISM AND THROMBOSIS OF DEEP VN UNSP UP EXTREM (12) Hyperthyroidism Assessment/Plan: -Tapazole stopped -euthyroid -endocrine consult Code(s): E05.90 - THYROTOXICOSIS, UNSP WITHOUT THYROTOXIC CRISIS OR STORM (13) Acute on chronic diastolic CHF (congestive heart failure) Assessment/Plan: -Last CXR with bilateral pleural effusions -on levophed
--- NOTE | 2019-01-24 12:34 | PN ---
Progress Note (short form) - Note Progress Note: Renal follow up for hyponatremia Seen and examined in the ICU remains intubated s/p dialysis/UF yesterday with 3.8L removed Vital Signs Temperature 97.2 F L 01/23/19 12:00 Pulse Rate 84 01/23/19 13:42 Respiratory Rate 24 H 01/23/19 13:42 Blood Pressure 105/75 01/23/19 13:42 O2 Sat by Pulse Oximetry (%) 100 01/23/19 12:44 Intake & Output 01/20/19 01/21/19 01/22/19 01/23/19 23:59 23:59 23:59 23:59 Intake Total 1742 2346.5 2039 960 Output Total 2900 220 120 50 Balance -1158 2126.5 1919 910 Weight 162.431 kg 162.431 kg 163.021 kg 163.021 kg on vent via ET tube RRR Dec BS Obese, NT/ND ++ edema in upper and lower extremity CBC, BMP 01/24/19 06:05 01/24/19 06:05 Current Medications Acetaminophen (Tylenol -) 650 mg PO Q6H PRN PRN Reason: PAIN LEVEL 1-5 Albuterol/Ipratropium (Duoneb -) 1 amp NEB RQID [facility] Last Admin: 01/24/19 11:30 Dose: 1 amp Amino Acids (Prosource No Carb Liquid Pkt) 30 ml PO BID@0800,1730 [facility] Last Admin: 01/24/19 08:41 Dose: 30 ml Atorvastatin Calcium (Lipitor -) 10 mg PO HS [facility] Last Admin: 01/23/19 21:31 Dose: 10 mg Chlorhexidine Gluconate (Hibiclens For Decolonization -) 1 applic TP HS [facility] Last Admin: 01/23/19 21:31 Dose: 1 applic Dorzolamide HCl (Trusopt 2%) 1 drop OU BID [facility] Last Admin: 01/24/19 09:20 Dose: 1 drop Fludrocortisone Acetate (Florinef -) 0.05 mg PO DAILY [facility] Last Admin: 01/24/19 09:14 Dose: 0.05 mg Hydrocortisone Sodium Succinate (Solu-Cortef -) 50 mg IVPB Q6H [facility] Last Admin: 01/24/19 08:41 Dose: 50 mg Norepinephrine Bitartrate 8, (000 mcg/ Sodium Chloride) 500 mls @ 17.83 mls/hr IV ASDIR [facility]; Protocol Last Titration: 01/24/19 10:31 Dose: 0.03 mcg/kg/min, 17.83 mls/hr Piperacillin Sod/Tazobactam (Sod 2.25 gm/ Dextrose) 50 mls @ 100 mls/hr IVPB Q8H-IV [facility]; Protocol Last Admin: 01/24/19 09:14 Dose: 100 mls/hr Famotidine/Sodium Chloride (Pepcid 20 Mg Premixed Ivpb -) 20 mg in 50 mls @ 100 mls/hr IVPB DAILY@0800 [facility] Last Admin: 01/24/19 08:40 Dose: 100 mls/hr Fentanyl 500 mcg/ Dextrose 100 mls @ 5 mls/hr IVPB TITR [facility]; Protocol Last Admin: 01/24/19 08:43 Dose: 100 mcg/hr, 20 mls/hr Insulin Aspart (Novolog Vial Sliding Scale -) 1 vial SQ Q4HPO [facility]; Protocol Last Admin: 01/24/19 11:04 Dose: Not Given Insulin Detemir (Levemir Vial) 16 units SQ AM [facility] Last Admin: 01/24/19 06:40 Dose: 16 units Insulin Detemir (Levemir Vial) 16 units SQ HS [facility] Last Admin: 01/23/19 21:31 Dose: 16 units Multi-Ingredient Lotion (Eucerin (Large Jar) -) 1 applic TP BID PRN PRN Reason: DRY SKIN Last Admin: 01/24/19 09:21 Dose: 1 applic Nystatin (Nystatin Oral Suspension -) 500,000 units PO Q6HPO [facility] Last Admin: 01/24/19 06:39 Dose: 500,000 units Rivaroxaban (Xarelto) 15 mg PO DAILY@1800 [facility] Last Admin: 01/23/19 17:26 Dose: 15 mg Silver Sulfadiazine (Silvadene -) 1 applic TP BID [facility] Last Admin: 01/24/19 09:19 Dose: 1 applic Triamcinolone Acetonide (Aristocort 0.025% Ointment -) 1 applic TP BID [facility] Last Admin: 01/24/19 09:19 Dose: 1 applic 48 year old gentleman with history of morbid obesity, COPD, BONY , diastolic heart failure, anemia, hypertension, hypothyrodism, DVT presented with back pain from the [place] and found to have hyponatremia with serum Na of 123. 1. Hypervolemic hyponatremia 2. Diastolic CHF with pleural effusions 3. Acute on chronic lower back pain 4. Morbid obesity 5. COPD/BONY 6. Hypotension/shock r/o sepsis 7. Acute renal failure secondary to sepsis 8. Hypokalemia Remains oliguric at this time. No signs of renal recovery as of yet. No urgent need for dialysis/UF today. If no significant improvement in urine output over the next 24 hours will require additional [employer] tomorrow. Continue IV Lasix to promote urine output Continue vent support overall prognosis is poor. awaiting possible transfer to tertiary care center Thank you Dennis Aldana DO
[2019-01-24] MEDS ORDERED: NOREPINEPHRINE BITARTRATE 4 MG/4 ML ML IV ONE (12:41)
[2019-01-24 12:57] LABS: ANISOCYTOSIS 1+; MACROCYTOSIS 1+; PLATELET ESTIMATE DECREASED
--- NOTE | 2019-01-24 14:02 | PN ---
Physical Exam: SUBJECTIVE: Patient seen and examined at bedside. pt is awake. pt is intubated. OBJECTIVE: Vital Signs Period Temp Pulse Resp BP Sys/Woodall Pulse Ox Last 24 Hr 95 F-97.1 F 72-97 20-25 79-121/47-91 96-100 GENERAL: The patient is awake, alert, and fully oriented, in no acute distress. HEAD: Normal with no signs of trauma. EYES: PERRL LUNGS: Breath sounds equal, no wheezes, no crackles, no accessory muscle use. HEART: Regular rate and rhythm, S1, S2 ABDOMEN: Soft, nontender, nondistended, normoactive bowel sounds, no guarding EXTREMITIES:b/l LE edema and wounds SKIN: cold Laboratory Last Values WBC 9.1 K/mm3 (4.0-10.0) 01/24/19 06:05 Corrected WBC (auto) 7.98 K/mm3 01/24/19 06:05 RBC 2.47 M/mm3 (4.00-5.60) L 01/24/19 06:05 Hgb 7.9 GM/dL (11.7-16.9) L 01/24/19 06:05 Hct 23.1 % (35.4-49) L 01/24/19 06:05 MCV 93.2 fl (80-96) 01/24/19 06:05 MCH 32.0 pg (25.7-33.7) 01/24/19 06:05 MCHC 34.3 g/dl (32.0-35.9) 01/24/19 06:05 RDW 15.1 % (11.9-15.9) 01/24/19 06:05 Plt Count 66 K/MM3 (134-434) L D 01/24/19 06:05 MPV 7.9 fl (7.5-11.1) 01/24/19 06:05 Absolute Neuts (auto) 7.5 K/mm3 (1.5-8.0) 01/24/19 06:05 Total Counted 100 01/17/19 04:40 Neutrophils % 95.2 % (42.8-82.8) H 01/24/19 06:05 Neutrophils % (Manual) 96.0 % (42.8-82.8) H 01/24/19 06:05 Band Neutrophils % 1.0 % 01/24/19 06:05 Lymphocytes % 3.0 % (8-40) L D 01/24/19 06:05 Lymphocytes % (Manual) 1.0 % (8-40) L D 01/24/19 06:05 Monocytes % 1.5 % (3.8-10.2) L 01/24/19 06:05 Monocytes % (Manual) 1 % (3.8-10.2) L 01/24/19 06:05 Eosinophils % 0.1 % (0-4.5) 01/24/19 06:05 Eosinophils % (Manual) 0.0 % (0-4.5) 01/24/19 06:05 Basophils % 0.2 % (0-2.0) 01/24/19 06:05 Basophils % (Manual) 0.0 % (0-2.0) 01/24/19 06:05 Myelocytes % (Man) 1 % (0-2) D 01/24/19 06:05 Promyelocytes % (Man) 0 % (0-2) 01/24/19 06:05 Blast Cells % (Manual) 0 % (0-0) 01/24/19 06:05 Nucleated RBC % 12 % (0-0) H* 01/24/19 06:05 Metamyelocytes 0 % (0-2) D 01/24/19 06:05 Hypochromia 0 01/24/19 06:05 Toxic Granulation 0 01/11/19 05:50 Dohle Bodies 0 01/11/19 05:50 Platelet Estimate Decreased 01/24/19 06:05 Platelet Comment No clumping noted 01/17/19 04:40 Platelet Comment No clotting detected 01/17/19 04:40 Polychromasia 0 01/24/19 06:05 Poikilocytosis 1+ 01/24/19 06:05 Basophilic Stippling 1+ 01/23/19 06:00 Anisocytosis 1+ 01/24/19 06:05 Microcytosis 0 01/24/19 06:05 Macrocytosis 1+ 01/24/19 06:05 Spherocytes 0 01/11/19 05:50 Sickle Cells 0 01/11/19 05:50 Target Cells 0 01/11/19 05:50 Tear Drop Cells 0 01/11/19 05:50 Ovalocytes 0 01/11/19 05:50 Stomatocytes 0 01/11/19 05:50 Helmet Cells 0 01/11/19 05:50 Boyd-[place]dido Bodies 0 01/11/19 05:50 [place] Rings 0 01/11/19 05:50 L[place] Cells 1+ 01/24/19 06:05 Acanthocytes (Spur) 0 01/11/19 05:50 Rouleaux 0 01/11/19 05:50 Fragmented RBCs 0 01/11/19 05:50 Schistocytes 0 01/11/19 05:50 PT with INR 19.60 SEC (9.7-13.0) H 01/22/19 05:15 INR 1.65 (0.83-1.09) H 01/22/19 05:15 PTT (Actin FS) 41.7 SECONDS (25.2-36.5) H 01/22/19 05:15 Anticoagulation Therapy No Result Required. 01/23/19 06:00 Puncture Site Arterial line 01/23/19 06:00 ABG pH 7.34 (7.35-7.45) L 01/23/19 06:00 ABG pCO2 at Pt Temp 33.4 mmHg (35-45) L 01/23/19 06:00 ABG pO2 at Pt Temp 212 mmHg (80-100) H 01/23/19 06:00 ABG HCO3 17.6 mmol/L (22-27) L 01/23/19 06:00 ABG O2 Sat (Measured) 99.3 % (95-98) H 01/23/19 06:00 ABG O2 Content 12.1 % vol 01/23/19 06:00 ABG Base Excess -6.9 meq/l (-2-2) L 01/23/19 06:00 Orlin Test Positive 01/23/19 06:00 Carboxyhemoglobin 0.6 % (0-2) 01/09/19 19:40 Methemoglobin < 1.0 % (0-2) 01/09/19 19:40 O2 Delivery Device Vent 01/23/19 06:00 Oxygen Flow Rate 40% 01/23/19 06:00 Vent Mode A/c 01/23/19 06:00 Vent Rate 24 01/23/19 06:00 Mechanical Rate Yes 01/23/19 06:00 PEEP 12.0 cmH2O 01/23/19 06:00 Pressure Support Vent 450 01/23/19 06:00 Sodium 135 mmol/L (136-145) L 01/24/19 06:05 Potassium 3.5 mmol/L (3.5-5.1) 01/24/19 06:05 Chloride 104 mmol/L (98-107) 01/24/19 06:05 Carbon Dioxide 20 mmol/L (21-32) L 01/24/19 06:05 Anion Gap 12 MMOL/L (8-16) 01/24/19 06:05 BUN 56.6 mg/dL (7-18) H 01/24/19 06:05 Creatinine 3.7 mg/dL (0.55-1.3) H 01/24/19 06:05 Est GFR (CKD-EPI)AfAm 21.12 01/24/19 06:05 Est GFR (CKD-EPI)NonAf 18.22 01/24/19 06:05 POC Glucometer 98 UNITS (80-120) 01/24/19 11:02 Random Glucose 169 mg/dL (74-106) H 01/24/19 06:05 Hemoglobin A1c % 8.8 % (4.2-6.3) H 01/11/19 05:50 Serum Osmolality 261 mosm/kg (278-305) L 01/16/19 18:15 Lactic Acid 2.0 mmol/L (0.4-2.0) 01/17/19 11:20 Uric Acid 6.9 mg/dL (2.6-7.2) 01/09/19 18:05 Calcium 8.7 mg/dL (8.5-10.1) 01/24/19 06:05 Phosphorus 2.5 mg/dL (2.5-4.9) 01/24/19 06:05 Magnesium 1.9 mg/dL (1.8-2.4) 01/24/19 06:05 Total Bilirubin 0.6 mg/dL (0.2-1) 01/24/19 06:05 Direct Bilirubin Cancelled 01/18/19 09:20 AST 30 U/L (15-37) 01/24/19 06:05 ALT 71 U/L (13-61) H 01/24/19 06:05 Alkaline Phosphatase 121 U/L (45-117) H 01/24/19 06:05 Creatine Kinase 30 U/L (26-308) 01/09/19 17:55 Troponin I < 0.02 ng/ml (0.00-0.05) 01/09/19 17:55 B-Natriuretic Peptide 105.3 pg/ml (5-125) 01/09/19 17:55 Total Protein 4.6 g/dl (6.4-8.2) L 01/24/19 06:05 Albumin 2.4 g/dl (3.4-5.0) L 01/24/19 06:05 Triglycerides 219 mg/dL (0-150) H 01/14/19 08:56 Cholesterol 245 mg/dL (50-200) H 01/14/19 08:56 Total LDL Cholesterol 160 mg/dL (5-100) H 01/14/19 08:56 HDL Cholesterol 42 mg/dL (40-60) 01/14/19 08:56 Lipase 131 U/L (73-393) 01/10/19 08:21 TSH 0.12 uIU/ml (0.358-3.74) L D 01/19/19 05:30 Free T4 0.49 ng/dl (0.76-1.16) L 01/19/19 05:30 Cortisol AM Sample 10.0 ug/dL (6.2-19.4) 01/10/19 08:21 ACTH Cancelled 01/12/19 13:52 Urine Color Dk yellow 01/15/19 10:30 Urine Appearance Turbid 01/15/19 10:30 Urine pH 5.0 (5.0-8.0) D 01/15/19 10:30 Ur Specific [place] 1.027 (1.010-1.035) 01/15/19 10:30 Urine Protein 1+ (NEGATIVE) H 01/15/19 10:30 Urine Glucose (UA) Negative (NEGATIVE) 01/15/19 10:30 Urine Ketones Trace (NEGATIVE) H 01/15/19 10:30 Urine Blood 3+ (NEGATIVE) H 01/15/19 10:30 Urine Nitrite Negative (NEGATIVE) 01/15/19 10:30 Urine Bilirubin Negative (NEGATIVE) 01/15/19 10:30 Urine Urobilinogen 1.0 mg/dL (0.2-1.0) 01/15/19 10:30 Ur Leukocyte Esterase 2+ (NEGATIVE) H 01/15/19 10:30 Urine WBC (Auto) 61 /hpf (0-5) 01/15/19 10:30 Urine RBC (Auto) 40.4 /hpf (0-4) 01/15/19 10:30 Urine Casts (Auto) 20 /lpf (0-8) 01/15/19 10:30 U Pathogenic Cast Auto None seen /lpf (NEGATIVE) 01/15/19 10:30 U Epithel Cells (Auto) 23.5 /HPF (0-5/HPF) 01/15/19 10:30 U Sm Round Cell (Auto) None seen 01/15/19 10:30 Urine Crystals (Auto) Ca oxalate /hpf 01/15/19 10:30 Urine Bacteria (Auto) 2.6 /hpf (NEGATIVE) 01/15/19 10:30 Urine Yeast (Auto) None seen (NEGATIVE) 01/15/19 10:30 Urine Osmolality 278 mosm/kg (300-900) L D 01/17/19 12:00 Ur Random Creatinine 97.1 mg/dL (30-150) 01/17/19 14:00 Ur Random Sodium 11 MMOL/L (40-220) L 01/17/19 14:00 Random Vancomycin 25.3 ug/ml (18-26) 01/24/19 06:05 Hep Bs Antigen Negative (Negative) 01/19/19 13:45 Hep C Ab Diagnostic <0.1 s/co ratio (0.0-0.9) 01/19/19 13:45 Current Medications Acetaminophen (Tylenol -) 650 mg PO Q6H PRN PRN Reason: PAIN LEVEL 1-5 Albuterol/Ipratropium (Duoneb -) 1 amp NEB RQID [facility] Last Admin: 01/24/19 11:30 Dose: 1 amp Amino Acids (Prosource No Carb Liquid Pkt) 30 ml PO BID@0800,1730 [facility] Last Admin: 01/24/19 08:41 Dose: 30 ml Atorvastatin Calcium (Lipitor -) 10 mg PO [facility] Last Admin: 01/23/19 21:31 Dose: 10 mg Chlorhexidine Gluconate (Hibiclens For Decolonization -) 1 applic TP [facility] Last Admin: 01/23/19 21:31 Dose: 1 applic Dorzolamide HCl (Trusopt 2%) 1 drop OU BID [facility] Last Admin: 01/24/19 09:20 Dose: 1 drop Fludrocortisone Acetate (Florinef -) 0.05 mg PO DAILY [facility] Last Admin: 01/24/19 09:14 Dose: 0.05 mg Hydrocortisone Sodium Succinate (Solu-Cortef -) 50 mg IVPB Q6H [facility] Last Admin: 01/24/19 08:41 Dose: 50 mg Norepinephrine Bitartrate 8, (000 mcg/ Sodium Chloride) 500 mls @ 17.83 mls/hr IV ASDIR [facility]; Protocol Last Titration: 01/24/19 12:53 Dose: 0.04 mcg/kg/min, 23.78 mls/hr Piperacillin Sod/Tazobactam (Sod 2.25 gm/ Dextrose) 50 mls @ 100 mls/hr IVPB Q8H-IV [facility]; Protocol Last Admin: 01/24/19 09:14 Dose: 100 mls/hr Famotidine/Sodium Chloride (Pepcid 20 Mg Premixed Ivpb -) 20 mg in 50 mls @ 100 mls/hr IVPB DAILY@0800 [facility] Last Admin: 01/24/19 08:40 Dose: 100 mls/hr Fentanyl 500 mcg/ Dextrose 100 mls @ 5 mls/hr IVPB TITR [facility]; Protocol Last Admin: 01/24/19 12:47 Dose: 100 mcg/hr, 20 mls/hr Insulin Aspart (Novolog Vial Sliding Scale -) 1 vial SQ Q4HPO [facility]; Protocol Last Admin: 01/24/19 11:04 Dose: Not Given Insulin Detemir (Levemir Vial) 16 units SQ AM [facility] Last Admin: 01/24/19 06:40 Dose: 16 units Insulin Detemir (Levemir Vial) 16 units SQ HS [facility] Last Admin: 01/23/19 21:31 Dose: 16 units Multi-Ingredient Lotion (Eucerin (Large Jar) -) 1 applic TP BID PRN PRN Reason: DRY SKIN Last Admin: 01/24/19 09:21 Dose: 1 applic Nystatin (Nystatin Oral Suspension -) 500,000 units PO Q6HPO [facility] Last Admin: 01/24/19 12:50 Dose: 500,000 units Rivaroxaban (Xarelto) 15 mg PO DAILY@1800 [facility] Last Admin: 01/23/19 17:26 Dose: 15 mg Silver Sulfadiazine (Silvadene -) 1 applic TP BID [facility] Last Admin: 01/24/19 09:19 Dose: 1 applic Triamcinolone Acetonide (Aristocort 0.025% Ointment -) 1 applic TP BID [facility] Last Admin: 01/24/19 09:19 Dose: 1 applic ASSESSMENT/PLAN: 48 yo M with PMH of morbid obesity, OHS, BONY, COPD, diastolic CHF, anemia, history of UGI bleeding, HTN, hyperthyroidism, DVTs, who was initially admitted for acute on chronic diastolic CHF. During hospital course( 01/14/19) patient was found hypotensive and lethargic, and was transferred to the ICU. on 01/21, pt was intubated 2/2 acute hypercapneic respiratory failure Neurology:Acute toxic metabolic encephalopathy -awake and alert - on fentanyl for analgesia Cardiology Hypervolemia -On Levophed , titrate as tolerated to MAP >65 -Cardiology (Dr. Chowdhury)recs appreciated - was on vaso over the weekend, was titrated off. HFpEF -on lasix -last ECHO 01/11: nondiagnostic, limited in quality. nl EF. will consider repeat -strict I&O, fluid restrictions ID: Sepsis 2/2 proteus UTI -c/w Zosyn 3.375 q8h day 4 -ID (Dr. Calles)recs -vanc level Pulmonology: Acute hypercapnic resp failure, OHS, COPD -intubated. - c/w IV hydrocortisone 50 Q6h, Fludrocortisone PO 0.05 mg Renal: Hypervolemic hyponatremia, MARVA - continue to monitor volume status per A line pressure. -Na improved following dialysis, Uoutpt still low even with use of diuretics -Nephro recs appreciated -trend Na q 8-12 hrs -pt continues to be oliguric, plan for dialysis with ultrafiltration ( goal 3- 3.5L as tolerated) -Continue IVlasix 120( with goal of converting to non-oliguria) -renal/ bladder u/s no evidence of hydronephrosis or obstruction. -will continue monitor I&O and Cr Hypokalemia -repleted -continue to monitor , goal K 4-4.5 Heme: Hx of DVT's -continue xarelto 20mg daily Derm-> desquamated skin - derm consult (Dr. West) appreciate recs. unlikely autoimmune, likely 2/2 edema and stasis dermatitis . continue w/ wound care and dressing - continue to monitor for worsening. Endo: Hypothyroid, DM -low T4, consider repeating TFTs -Endo recs appreciated -thyroid mass, neck u/s poor study due to body habitus. pt cannot fit in CT machine at [facility], unable to get rpt CT -patient had head and neck surgery evaluation at [facility] (Dr. Joon Waite) in 2016 and thyroidectomy recommended. head and neck re-evaluation appreciated -thyroid enlargement evident on examination, continues to show on imaging studies, per prior records prior biopsies have been negative -c/w levemir 20units bid -c/w ISS and BGM F/E/N -minimize IVF -routine bmp monitoring DVT Prophylaxis: -c/w Xarelto PO 20mg daily Dispo: continue ICU monitoring , transfer initiated at [facility] Visit type - Emergency Visit Emergency Visit: No - New Patient This patient is new to me today: No - Critical Care Critical Care patient: Yes Total Critical Care Time (in minutes): 36 Critical Care Statement: The care of this patient involved high complexity decision making to prevent further life threatening deterioration of the patient 's condition and/or to evaluate & treat vital organ system(s) failure or risk of failure. ATTENDING PHYSICIAN STATEMENT I saw and evaluated the patient. I reviewed the resident's note and discussed the case with the resident. I agree with the resident's findings and plan as documented. SUBJECTIVE: OBJECTIVE: ASSESSMENT AND PLAN:
--- NOTE | 2019-01-24 16:05 | PN ---
Progress Note (short form) - Note Progress Note: intubated dialysis yesterday pressors being tapered now on vancomycin by level Vital Signs Period Temp Pulse Resp BP Sys/Woodall Pulse Ox Last 24 Hr 95 F-97.2 F 72-93 21-25 90-121/47-91 96-100 intubated cor-rrr lungs cecreased bs at bases abd soft,nt +multiple skin tears femoral line removed right IJ CVP CBC, BMP 01/24/19 06:05 01/24/19 06:05 Microbiology 01/21/19 09:20 Blood - Shiley Catheter Blood Culture - Preliminary NO GROWTH OBTAINED AFTER 72 HOURS, INCUBATION TO CONTINUE FOR 2 DAYS. 01/21/19 09:20 Blood - Shiley Catheter Blood Culture - Preliminary NO GROWTH OBTAINED AFTER 72 HOURS, INCUBATION TO CONTINUE FOR 2 DAYS. 01/21/19 12:00 Sputum - Endotrachea Suction/Ventilator Gram Stain - Final 01/21/19 12:00 Sputum - Endotrachea Suction/Ventilator Sputum Culture - Final S Aureus 01/16/19 13:30 Blood - Central Line Blood Culture - Final NO GROWTH AFTER 5 DAYS INCUBATION 01/16/19 13:39 Blood - Peripheral Venous Blood Culture - Final NO GROWTH AFTER 5 DAYS INCUBATION 01/15/19 10:30 Urine - Urine Aguilera Urine Culture - Final NO GROWTH OBTAINED 01/09/19 23:02 Urine - Urine Clean Catch Urine Culture - Final Proteus Mirabilis 01/10/19 17:17 Urine For Antigen Detection Legionella Antigen - Final 01/10/19 17:17 Urine For Antigen Detection Streptococcus pneumoniae Antigen (M - Final Current Medications Acetaminophen (Tylenol -) 650 mg PO Q6H PRN PRN Reason: PAIN LEVEL 1-5 Albuterol/Ipratropium (Duoneb -) 1 amp NEB RQID [facility] Last Admin: 01/24/19 11:30 Dose: 1 amp Amino Acids (Prosource No Carb Liquid Pkt) 30 ml PO BID@0800,1730 [facility] Last Admin: 01/24/19 08:41 Dose: 30 ml Atorvastatin Calcium (Lipitor -) 10 mg PO [facility] Last Admin: 01/23/19 21:31 Dose: 10 mg Chlorhexidine Gluconate (Hibiclens For Decolonization -) 1 applic TP [facility] Last Admin: 01/23/19 21:31 Dose: 1 applic Dorzolamide HCl (Trusopt 2%) 1 drop OU BID [facility] Last Admin: 01/24/19 09:20 Dose: 1 drop Fludrocortisone Acetate (Florinef -) 0.05 mg PO DAILY [facility] Last Admin: 01/24/19 09:14 Dose: 0.05 mg Hydrocortisone Sodium Succinate (Solu-Cortef -) 50 mg IVPB Q6H [facility] Last Admin: 01/24/19 14:41 Dose: 50 mg Norepinephrine Bitartrate 8, (000 mcg/ Sodium Chloride) 500 mls @ 17.83 mls/hr IV ASDIR [facility]; Protocol Last Titration: 01/24/19 14:15 Dose: 0.05 mcg/kg/min, 29.72 mls/hr Piperacillin Sod/Tazobactam (Sod 2.25 gm/ Dextrose) 50 mls @ 100 mls/hr IVPB Q8H-IV [facility]; Protocol Last Admin: 01/24/19 09:14 Dose: 100 mls/hr Famotidine/Sodium Chloride (Pepcid 20 Mg Premixed Ivpb -) 20 mg in 50 mls @ 100 mls/hr IVPB DAILY@0800 [facility] Last Admin: 01/24/19 08:40 Dose: 100 mls/hr Fentanyl 500 mcg/ Dextrose 100 mls @ 5 mls/hr IVPB TITR [facility]; Protocol Last Admin: 01/24/19 12:47 Dose: 100 mcg/hr, 20 mls/hr Insulin Aspart (Novolog Vial Sliding Scale -) 1 vial SQ Q4HPO [facility]; Protocol Last Admin: 01/24/19 15:18 Dose: Not Given Insulin Detemir (Levemir Vial) 16 units SQ AM [facility] Last Admin: 01/24/19 06:40 Dose: 16 units Insulin Detemir (Levemir Vial) 16 units SQ HS [facility] Last Admin: 01/23/19 21:31 Dose: 16 units Multi-Ingredient Lotion (Eucerin (Large Jar) -) 1 applic TP BID PRN PRN Reason: DRY SKIN Last Admin: 01/24/19 09:21 Dose: 1 applic Nystatin (Nystatin Oral Suspension -) 500,000 units PO Q6HPO [facility] Last Admin: 01/24/19 12:50 Dose: 500,000 units Rivaroxaban (Xarelto) 15 mg PO DAILY@1800 [facility] Last Admin: 01/23/19 17:26 Dose: 15 mg Silver Sulfadiazine (Silvadene -) 1 applic TP BID [facility] Last Admin: 01/24/19 09:19 Dose: 1 applic Triamcinolone Acetonide (Aristocort 0.025% Ointment -) 1 applic TP BID [facility] Last Admin: 01/24/19 09:19 Dose: 1 applic Laboratory Tests 01/23/19 01/24/19 06:00 06:05 Random Vancomycin 28.8 H 25.3 a/p respiratory failure persistent hypotension-pressors being tapered infiltrates on cxray- vancomycin added yesterday MARVA- morbid obesity large thyroid goiter check vancomycin level and redose as needed in the am would consider d/c zosyn if okay with ICU team overall prognosis is guarded
[2019-01-24] MEDS: RIVAROXABAN 15 MG TABLET PO SCH (17:12)
[2019-01-24] MEDS: ATORVASTATIN CA 10 MG TABLET (FP) PO SCH (22:01)
[2019-01-24] MEDS: CHLORHEXIDINE GLUCONATE 4% CLEANSER FOR DECOLONIZATION TP SCH (22:02)
--- NOTE | 2019-01-24 22:46 | PN ---
Progress Note, Physician Chief Complaint: Pt is intubated; minimally responsive. History of Present Illness: Pt is a 48-year-old black male from [place], with a past medical history of morbid obesity, COPD, diastolic CHF, sedentary, hypertension, hyperlipidemia , hypothyroidism,sleep apnea, and s/p DVT (-->rivaroxaban) who is maintained on 3 L oxygen nasal cannula Medical history significant for acute on chronic respiratory failure with hypoxia and hypercapnea, previous intubations, pneumonia, DVT, glaucoma, hyperlipidemia, hypertension. Pt has spoken multiple times over the past several years of planning to undergo gastric bypass surgery; he says he is working with the team at [facility]. - Current Medication List Current Medications: Active Medications Acetaminophen (Tylenol -) 650 mg PO Q6H PRN PRN Reason: PAIN LEVEL 1-5 Albuterol/Ipratropium (Duoneb -) 1 amp NEB RQID [facility] Last Admin: 01/24/19 21:20 Dose: 1 amp Amino Acids (Prosource No Carb Liquid Pkt) 30 ml PO BID@0800,1730 [facility] Last Admin: 01/24/19 17:12 Dose: 30 ml Atorvastatin Calcium (Lipitor -) 10 mg PO HS [facility] Last Admin: 01/24/19 22:01 Dose: 10 mg Chlorhexidine Gluconate (Hibiclens For Decolonization -) 1 applic TP HS [facility] Last Admin: 01/24/19 22:02 Dose: 1 applic Dorzolamide HCl (Trusopt 2%) 1 drop OU BID [facility] Last Admin: 01/24/19 22:02 Dose: 1 drop Fludrocortisone Acetate (Florinef -) 0.05 mg PO DAILY [facility] Last Admin: 01/24/19 09:14 Dose: 0.05 mg Hydrocortisone Sodium Succinate (Solu-Cortef -) 50 mg IVPB Q6H [facility] Last Admin: 01/24/19 20:23 Dose: 50 mg Norepinephrine Bitartrate 8, (000 mcg/ Sodium Chloride) 500 mls @ 17.83 mls/hr IV ASDIR [facility]; Protocol Last Titration: 01/24/19 14:15 Dose: 0.05 mcg/kg/min, 29.72 mls/hr Piperacillin Sod/Tazobactam (Sod 2.25 gm/ Dextrose) 50 mls @ 100 mls/hr IVPB Q8H-IV [facility]; Protocol Last Admin: 01/24/19 17:12 Dose: 100 mls/hr Famotidine/Sodium Chloride (Pepcid 20 Mg Premixed Ivpb -) 20 mg in 50 mls @ 100 mls/hr IVPB DAILY@0800 [facility] Last Admin: 01/24/19 08:40 Dose: 100 mls/hr Fentanyl 500 mcg/ Dextrose 100 mls @ 5 mls/hr IVPB TITR [facility]; Protocol Last Admin: 01/24/19 19:09 Dose: 100 mcg/hr, 20 mls/hr Insulin Aspart (Novolog Vial Sliding Scale -) 1 vial SQ Q4HPO [facility]; Protocol Last Admin: 01/24/19 22:01 Dose: Not Given Insulin Detemir (Levemir Vial) 16 units SQ AM [facility] Last Admin: 01/24/19 06:40 Dose: 16 units Insulin Detemir (Levemir Vial) 16 units SQ HS [facility] Last Admin: 01/24/19 22:01 Dose: 16 units Multi-Ingredient Lotion (Eucerin (Large Jar) -) 1 applic TP BID PRN PRN Reason: DRY SKIN Last Admin: 01/24/19 09:21 Dose: 1 applic Nystatin (Nystatin Oral Suspension -) 500,000 units PO Q6HPO [facility] Last Admin: 01/24/19 17:12 Dose: 500,000 units Rivaroxaban (Xarelto) 15 mg PO DAILY@1800 [facility] Last Admin: 01/24/19 17:12 Dose: 15 mg Silver Sulfadiazine (Silvadene -) 1 applic TP BID [facility] Last Admin: 01/24/19 22:00 Dose: 1 applic Triamcinolone Acetonide (Aristocort 0.025% Ointment -) 1 applic TP BID [facility] Last Admin: 01/24/19 22:02 Dose: 1 applic - Objective Vital Signs: Vital Signs Temperature 97.8 F 01/24/19 19:00 Pulse Rate 86 01/24/19 20:00 Respiratory Rate 24 H 01/24/19 21:00 Blood Pressure 113/92 01/24/19 20:00 O2 Sat by Pulse Oximetry (%) 96 01/24/19 20:49 Constitutional: Yes: Anxious, Obese Eyes: Yes: WNL HENT: Yes: WNL Neck: Yes: Decreased ROM, Other (markedly enlarged neck/jowls) Cardiovascular: Yes: Tachycardia, S1, S2, S4 Respiratory: Yes: Diminished, Mechanically Ventilated Gastrointestinal: Yes: Abdomen, Obese Genitourinary: Yes: Aguilera Present. No: Anuria Breast(s): Yes: Skin Changes (skin tears, excoriations below skin folds alongside breasts) Musculoskeletal: Yes: Joint Stiffness, Joint Swelling, Muscle Weakness Extremities: Yes: Cool Edema: Yes Peripheral Pulses WNL: No Peripheral Pulses: Left Radial: 1+, Right Radial: 1+, Left Doralis Pedis: 1+, Right Dorsalis Pedis: 1+ Integumentary: Yes: Pressure Ulcer (back), Skin Tear, Venous Stasis Changes Wound/Incision: Yes: Draining, Excoriated Neurological: Yes: Lethargy, Weakness Psychiatric: Yes: Other Labs: CBC, BMP 01/24/19 06:05 01/24/19 06:05 INR, PTT INR 1.65 (0.83-1.09) H 01/22/19 05:15 Abnormal Lab Results 01/24/19 01/24/19 01/25/19 06:05 06:05 05:45 RBC 2.47 L 2.31 L Hgb 7.9 L 7.5 L Hct 23.1 L 21.7 L Plt Count 66 L D 49 L D Neutrophils % 95.2 H 93.7 H Neutrophils % (Manual) 96.0 H Lymphocytes % 3.0 L D 4.1 L D Lymphocytes % (Manual) 1.0 L D Monocytes % 1.5 L 2.0 L Monocytes % (Manual) 1 L Nucleated RBC % 12 H* Sodium 135 L Carbon Dioxide 20 L BUN 56.6 H Creatinine 3.7 H Random Glucose 169 H ALT 71 H Alkaline Phosphatase 121 H Total Protein 4.6 L Albumin 2.4 L - ....Imaging Chest X-ray: Image Reviewed Other: Image Reviewed Problem List - Problems (1) Acute exacerbation of chronic obstructive pulmonary disease (COPD) Assessment/Plan: Intubated. bronchodilators, O2, steroids per electronics engineering manager. Code(s): J44.1 - CHRONIC OBSTRUCTIVE PULMONARY DISEASE W (ACUTE) EXACERBATION (2) Hyponatremia Assessment/Plan: resolved. F/u electrolytes, Is and Os. Code(s): E87.1 - HYPO-OSMOLALITY AND HYPONATREMIA (3) Morbid obesity Assessment/Plan: Pt says he has been scheduled for gastric bypass surgery in the past, but, for various reasons, it has not been carried out. Prognosis is poor without dietary modification and dramatic weight loss. Code(s): E66.01 - MORBID (SEVERE) OBESITY DUE TO EXCESS CALORIES (4) Acute on chronic diastolic CHF (congestive heart failure) Assessment/Plan: ECHO: normal LVEF; limited study otherwise (repeat when pt able to be better positioned for obtaining acoustic windows). Now appears fluid-overloaded. CXR: worsening bilateral pleural effusion. Hypotensive (remains on norepinephrine; dose now minimal) F/u BUN/Cr, electrolytes, daily weight, Is and Os. Code(s): I50.33 - ACUTE ON CHRONIC DIASTOLIC (CONGESTIVE) HEART FAILURE (5) Acute on chronic respiratory failure with hypoxia and hypercapnia Assessment/Plan: On Bipap. Tachypneic. Remains on norepinephrine for hypotension; oliguric, with worsening renal dysfunction. Receiving regular hemodialysis. Code(s): J96.21 - ACUTE AND CHRONIC RESPIRATORY FAILURE WITH HYPOXIA; J96.22 - ACUTE AND CHRONIC RESPIRATORY FAILURE WITH HYPERCAPNIA (6) Bilateral lower extremity edema Assessment/Plan: Worsening broken blisters, open sores. Hypotension; on norepinephrine, making use of diuretics problematic. Code(s): R60.0 - LOCALIZED EDEMA (7) Depression Code(s): F32.9 - MAJOR DEPRESSIVE DISORDER, SINGLE EPISODE, UNSPECIFIED (8) [place] cardiac risk >20% in next 10 years Assessment/Plan: Stress MIBI 12/2016: no ischemia. Keep lipids aggressively controlled with diet, statin. Code(s): Z91.89 - OTH PERSONAL RISK FACTORS, NOT ELSEWHERE CLASSIFIED (9) HTN (hypertension) Assessment/Plan: Medications (lisinopril; furosemide) held due to hypotension. Preently remains on IV norepinephrine; tattempting to titrate off. Code(s): I10 - ESSENTIAL (PRIMARY) HYPERTENSION (10) Hx of deep venous thrombosis Code(s): Z86.718 - PERSONAL HISTORY OF OTHER VENOUS THROMBOSIS AND EMBOLISM (11) Hyperlipidemia Assessment/Plan: statin. Code(s): E78.5 - HYPERLIPIDEMIA, UNSPECIFIED (12) Moderate to severe pulmonary hypertension Assessment/Plan: Now intubated. Code(s): I27.2 - OTHER SECONDARY PULMONARY HYPERTENSION * DO NOT USE * (13) Obstructive apnea Assessment/Plan: pressure-support oxygenation per electronics engineering manager. Code(s): G47.33 - OBSTRUCTIVE SLEEP APNEA (ADULT) (PEDIATRIC) (14) Diabetes Assessment/Plan: Restart ACEI if BP, eletrolytes stabilize. Code(s): E11.9 - TYPE 2 DIABETES MELLITUS WITHOUT COMPLICATIONS (15) Hyperthyroidism Assessment/Plan: Neck mass; for furhter exploration (though unable to perform thyroid US). Code(s): E05.90 - THYROTOXICOSIS, UNSP WITHOUT THYROTOXIC CRISIS OR STORM (16) Acute renal insufficiency Assessment/Plan: Now on hemodialysis per astronomy department chair. Code(s): N28.9 - DISORDER OF KIDNEY AND URETER, UNSPECIFIED (17) Shock Assessment/Plan: elevated WBCs since admission; afebrile. Sepsis: on antibiotics; wound care (pervasive skin breakdown). Acute respiratory failure-->intubation, mechanical ventilation. acute renal failure-->hemodialysis. Acute/chronic diastolic CHF. Hypotension-->IV norepinephrine (attempting to titrate of).. Sinus tachycardia. Hx DVT: on anticoagulation. f/u TNI. On antibiotics per ID. Code(s): R57.9 - SHOCK, UNSPECIFIED (18) Hypokalemia Assessment/Plan: Keep K 4-4.5 Keep Mg 2-2.4 Keep PO4 2.5-4.9 (neutrophos). Hyponatremia resolved. Code(s): E87.6 - HYPOKALEMIA (19) DVT (deep venous thrombosis) Assessment/Plan: Continue anticoagulation. Code(s): I82.409 - ACUTE EMBOLISM AND THOMBOS UNSP DEEP VN UNSP LOWER EXTREMITY (20) Neck mass Assessment/Plan: unable to perform US of thyroid. Planning for transfer to [facility] for further w/u. Code(s): R22.1 - LOCALIZED SWELLING, MASS AND LUMP, NECK Assessment/Plan CCU time spent: 40 minutes
[2019-01-25] MEDS: FENTANYL INJECTION 500 MCG in DEXTROSE 5%-WATER - 90 ML IVPB SCH ×5 (00:11→23:03)
[2019-01-25] MEDS: NYSTATIN 500,000 UNITS/5 ML SUSPENSION PO SCH ×4 (00:12→17:28)
[2019-01-25] MEDS ORDERED: DEXTROSE 5%-WATER - 50 ML IVPB ONE ×2 (01:56→09:17)
[2019-01-25] MEDS ORDERED: PIPERACILLIN/TAZOBACTAM 2.25 GM VIAL IVPB ONE ×2 (01:56→09:17)
[2019-01-25] MEDS: PIPERACILLIN/TAZOB 2.25 GM 2.25 GM in DEXTROSE 5%-WATER - 50 ML IVPB SCH ×2 (02:06→09:21)
[2019-01-25] MEDS: HYDROCORTISONE SOD SUCCINATE 100 MG/2 ML VIAL IVPB SCH ×4 (02:06→21:57)
[2019-01-25] MEDS: INSULIN SLIDING SCALE (NOVOLOG) 1 VIAL SQ SCH ×6 (02:07→21:59)
[2019-01-25] MEDS ORDERED: fentaNYL CITRATE 250 MCG/5 ML VIAL ONE ×4 (05:47→22:59)
[2019-01-25] MEDS: INSULIN (LEVEMIR) 100 UNITS/ML UNITS SQ SCH ×2 (06:49→22:04)
[2019-01-25 06:53] LABS: BASO % 0.1 % (0-2.0); EOS % 0.1 % (0-4.5); HEMATOCRIT 21.7 % (35.4-49); HEMOGLOBIN 7.5 GM/dL (11.7-16.9); LYMPH % 4.1 % (8-40); MCH 32.4 pg (25.7-33.7); MCHC 34.4 g/dl (32.0-35.9); MEAN CELL VOLUME 94.2 fl (80-96); MEAN PLT VOLUME 8.3 fl (7.5-11.1); NEUT % 93.7 % (42.8-82.8); PLATELET COUNT 49 K/MM3 (134-434); RBC 2.31 M/mm3 (4.00-5.60); RDW 15.1 % (11.9-15.9)
[2019-01-25] MEDS: ALBUTEROL SO4 2.5/IPRATROPIUM 0.5 INH SOL 3 ML VIAL.NEB. NEB SCH ×4 (07:35→20:14)
[2019-01-25 08:16] LABS: CORRECTED WBC 7.08 K/mm3; WHITE BLOOD COUNT 8.5 K/mm3 (4.0-10.0)
[2019-01-25 08:32] LABS: ALBUMIN 2.2 g/dl (3.4-5.0); BILIRUBIN,TOTAL 0.5 mg/dL (0.2-1); BLOOD UREA NITROGEN 68.9 mg/dL (7-18); CALCIUM 8.7 mg/dL (8.5-10.1); CREATININE 4.1 mg/dL (0.55-1.3); TOT PROT 4.3 g/dl (6.4-8.2)
[2019-01-25] MEDS: FAMOTIDINE 20 MG/50 ML IVPB 20 MG/50 ML MG IVPB SCH (08:38)
[2019-01-25] MEDS: AMINO ACIDS/PROTEIN HYDROLYS 30 ML LIQUID.PKT PO SCH ×2 (08:39→17:28)
[2019-01-25] MEDS: FLUDROCORTISONE ACETATE 0.1 MG TABLET (FP) PO SCH (09:21)
[2019-01-25] MEDS: KCL 10 MEQ IVPB 10 MEQ/100 ML INFUS.BAG IVPB SCH ×3 (09:21→11:57)
[2019-01-25] MEDS: SILVER SULFADIAZINE 1% TOP CREAM 50 GM JAR TP SCH (09:27)
[2019-01-25] MEDS: DORZOLAMIDE 2% HCL OPHTHALMIC SOLUTION 10 ML BOTTLE OU SCH ×2 (09:27→22:00)
[2019-01-25] MEDS: TRIAMCINOLONE ACET 0.025% OINTMENT 15 GM TUBE TP SCH ×2 (09:28→22:04)
--- NOTE | 2019-01-25 10:00 | PN ---
Progress Note (short form) - Note Progress Note: dialysis catheeter removed yesterday pressors being tapered now on vancomycin by level Vital Signs Period Temp Pulse Resp BP Sys/[place] Pulse Ox Last 24 Hr 96.9 F-97.8 F 77-102 24-25 90-133/47-119 96-99 orally intubated cor-rrr lungs decreased bs at bases abd soft,nt ext multiple skin tears, bulla left heel CBC, BMP 01/25/19 05:45 01/25/19 05:45 Microbiology 01/21/19 09:20 Blood - Shiley Catheter Blood Culture - Preliminary NO GROWTH OBTAINED AFTER 96 HOURS, INCUBATION TO CONTINUE FOR 1 DAYS. 01/21/19 09:20 Blood - Shiley Catheter Blood Culture - Preliminary NO GROWTH OBTAINED AFTER 96 HOURS, INCUBATION TO CONTINUE FOR 1 DAYS. 01/21/19 12:00 Sputum - Endotrachea Suction/Ventilator Gram Stain - Final 01/21/19 12:00 Sputum - Endotrachea Suction/Ventilator Sputum Culture - Final S Aureus 01/16/19 13:30 Blood - Central Line Blood Culture - Final NO GROWTH AFTER 5 DAYS INCUBATION 01/16/19 13:39 Blood - Peripheral Venous Blood Culture - Final NO GROWTH AFTER 5 DAYS INCUBATION 01/15/19 10:30 Urine - Urine Aguilera Urine Culture - Final NO GROWTH OBTAINED 01/09/19 23:02 Urine - Urine Clean Catch Urine Culture - Final Proteus Mirabilis 01/10/19 17:17 Urine For Antigen Detection Legionella Antigen - Final 01/10/19 17:17 Urine For Antigen Detection Streptococcus pneumoniae Antigen (M - Final Laboratory Tests 01/23/19 01/24/19 01/25/19 06:00 06:05 05:45 Random Vancomycin 28.8 H 25.3 24.3 cxray with right bases atelectasis Current Medications Acetaminophen (Tylenol -) 650 mg PO Q6H PRN PRN Reason: PAIN LEVEL 1-5 Albuterol/Ipratropium (Duoneb -) 1 amp NEB RQID [facility] Last Admin: 01/24/19 21:20 Dose: 1 amp Amino Acids (Prosource No Carb Liquid Pkt) 30 ml PO BID@0800,1730 [facility] Last Admin: 01/25/19 08:39 Dose: 30 ml Atorvastatin Calcium (Lipitor -) 10 mg PO HS [facility] Last Admin: 01/24/19 22:01 Dose: 10 mg Chlorhexidine Gluconate (Hibiclens For Decolonization -) 1 applic TP HS [facility] Last Admin: 01/24/19 22:02 Dose: 1 applic Dorzolamide HCl (Trusopt 2%) 1 drop OU BID [facility] Last Admin: 01/25/19 09:27 Dose: 1 drop Fludrocortisone Acetate (Florinef -) 0.05 mg PO DAILY [facility] Last Admin: 01/25/19 09:21 Dose: 0.05 mg Hydrocortisone Sodium Succinate (Solu-Cortef -) 50 mg IVPB Q6H [facility] Last Admin: 01/25/19 08:39 Dose: 50 mg Norepinephrine Bitartrate 8, (000 mcg/ Sodium Chloride) 500 mls @ 17.83 mls/hr IV ASDIR [facility]; Protocol Last Titration: 01/24/19 14:15 Dose: 0.05 mcg/kg/min, 29.72 mls/hr Piperacillin Sod/Tazobactam (Sod 2.25 gm/ Dextrose) 50 mls @ 100 mls/hr IVPB Q8H-IV [facility]; Protocol Last Admin: 01/25/19 09:21 Dose: 100 mls/hr Famotidine/Sodium Chloride (Pepcid 20 Mg Premixed Ivpb -) 20 mg in 50 mls @ 100 mls/hr IVPB DAILY@0800 [facility] Last Admin: 01/25/19 08:38 Dose: 100 mls/hr Fentanyl 500 mcg/ Dextrose 100 mls @ 5 mls/hr IVPB TITR [facility]; Protocol Last Admin: 01/25/19 05:58 Dose: 100 mcg/hr, 20 mls/hr Potassium Chloride (Potassium Chloride 10 Meq Premix Ivpb -) 10 meq in 100 mls @ 100 mls/hr IVPB Q60M [facility] Stop: 01/25/19 11:44 Last Admin: 01/25/19 09:21 Dose: 100 mls/hr Insulin Aspart (Novolog Vial Sliding Scale -) 1 vial SQ Q4HPO [facility]; Protocol Last Admin: 01/25/19 05:51 Dose: Not Given Insulin Detemir (Levemir Vial) 16 units SQ AM [facility] Last Admin: 01/25/19 06:49 Dose: 16 units Insulin Detemir (Levemir Vial) 16 units SQ HS [facility] Last Admin: 01/24/19 22:01 Dose: 16 units Multi-Ingredient Lotion (Eucerin (Large Jar) -) 1 applic TP BID PRN PRN Reason: DRY SKIN Last Admin: 01/24/19 09:21 Dose: 1 applic Nystatin (Nystatin Oral Suspension -) 500,000 units PO Q6HPO [facility] Last Admin: 01/25/19 05:59 Dose: 500,000 units Rivaroxaban (Xarelto) 15 mg PO DAILY@1800 [facility] Last Admin: 01/24/19 17:12 Dose: 15 mg Silver Sulfadiazine (Silvadene -) 1 applic TP BID [facility] Last Admin: 01/25/19 09:27 Dose: 1 applic Triamcinolone Acetonide (Aristocort 0.025% Ointment -) 1 applic TP BID [facility] Last Admin: 01/25/19 09:28 Dose: 1 applic a/p respiratory failure persistent hypotension-pressors being tapered infiltrates on cxray- sputum MRSA- continue vancomycin by level MARVA- morbid obesity large thyroid goiter check vancomycin level and redose as needed in the am- redose level less then 15 would consider d/c zosyn if okay with ICU team-d/w ICU team patient for transfer to tertiary care center- awaiting bed overall prognosis is guarded
[2019-01-25 11:10] LABS: ANISOCYTOSIS 1+; MACROCYTOSIS 1+; OVALOCYTE 1+; PLATELET ESTIMATE DECREASED; TARGET CELLS 1+; TEAR DROP CELLS 1+
--- NOTE | 2019-01-25 11:26 | PN ---
Progress Note, Physician Chief Complaint: Chest pain Pneumonia History of Present Illness: Remains intubated Still on Levophed maintaining MAP >65 mm Hg Oliguric waiting transfer to tertiary care center Mother at bedside - Current Medication List Current Medications: Active Medications Acetaminophen (Tylenol -) 650 mg PO Q6H PRN PRN Reason: PAIN LEVEL 1-5 Albuterol/Ipratropium (Duoneb -) 1 amp NEB RQID [facility] Last Admin: 01/24/19 21:20 Dose: 1 amp Amino Acids (Prosource No Carb Liquid Pkt) 30 ml PO BID@0800,1730 [facility] Last Admin: 01/25/19 08:39 Dose: 30 ml Atorvastatin Calcium (Lipitor -) 10 mg PO HS [facility] Last Admin: 01/24/19 22:01 Dose: 10 mg Chlorhexidine Gluconate (Hibiclens For Decolonization -) 1 applic TP HS [facility] Last Admin: 01/24/19 22:02 Dose: 1 applic Dorzolamide HCl (Trusopt 2%) 1 drop OU BID [facility] Last Admin: 01/25/19 09:27 Dose: 1 drop Fludrocortisone Acetate (Florinef -) 0.05 mg PO DAILY [facility] Last Admin: 01/25/19 09:21 Dose: 0.05 mg Hydrocortisone Sodium Succinate (Solu-Cortef -) 50 mg IVPB Q6H [facility] Last Admin: 01/25/19 08:39 Dose: 50 mg Norepinephrine Bitartrate 8, (000 mcg/ Sodium Chloride) 500 mls @ 17.83 mls/hr IV ASDIR [facility]; Protocol Last Titration: 01/24/19 14:15 Dose: 0.05 mcg/kg/min, 29.72 mls/hr Famotidine/Sodium Chloride (Pepcid 20 Mg Premixed Ivpb -) 20 mg in 50 mls @ 100 mls/hr IVPB DAILY@0800 [facility] Last Admin: 01/25/19 08:38 Dose: 100 mls/hr Fentanyl 500 mcg/ Dextrose 100 mls @ 5 mls/hr IVPB TITR [facility]; Protocol Last Admin: 01/25/19 05:58 Dose: 100 mcg/hr, 20 mls/hr Potassium Chloride (Potassium Chloride 10 Meq Premix Ivpb -) 10 meq in 100 mls @ 100 mls/hr IVPB Q60M [facility] Stop: 01/25/19 11:44 Last Admin: 01/25/19 10:38 Dose: 100 mls/hr Insulin Aspart (Novolog Vial Sliding Scale -) 1 vial SQ Q4HPO [facility]; Protocol Last Admin: 01/25/19 05:51 Dose: Not Given Insulin Detemir (Levemir Vial) 16 units SQ AM [facility] Last Admin: 01/25/19 06:49 Dose: 16 units Insulin Detemir (Levemir Vial) 16 units SQ HS [facility] Last Admin: 01/24/19 22:01 Dose: 16 units Multi-Ingredient Lotion (Eucerin (Large Jar) -) 1 applic TP BID PRN PRN Reason: DRY SKIN Last Admin: 01/24/19 09:21 Dose: 1 applic Nystatin (Nystatin Oral Suspension -) 500,000 units PO Q6HPO [facility] Last Admin: 01/25/19 05:59 Dose: 500,000 units Rivaroxaban (Xarelto) 15 mg PO DAILY@1800 [facility] Last Admin: 01/24/19 17:12 Dose: 15 mg Silver Sulfadiazine (Silvadene -) 1 applic TP BID [facility] Last Admin: 01/25/19 09:27 Dose: 1 applic Triamcinolone Acetonide (Aristocort 0.025% Ointment -) 1 applic TP BID [facility] Last Admin: 01/25/19 09:28 Dose: 1 applic - Objective Vital Signs: Vital Signs Temperature 97.3 F L 01/25/19 10:00 Pulse Rate 94 H 01/25/19 10:00 Respiratory Rate 24 H 01/25/19 10:26 Blood Pressure 101/61 01/25/19 10:00 O2 Sat by Pulse Oximetry (%) 100 01/25/19 10:26 Constitutional: Yes: Well Nourished, No Distress, Calm, Obese Cardiovascular: Yes: Regular Rate and Rhythm Respiratory: Yes: Mechanically Ventilated, Rhonchi (diffuse) Gastrointestinal: Yes: Normal Bowel Sounds, Soft, Abdomen, Obese Genitourinary: Yes: Aguilera Present Musculoskeletal: Yes: Other (sedated) Edema: Yes (BLLE non pitting edema) Peripheral Pulses WNL: Yes Wound/Incision: Yes: Dressing Dry and Intact Neurological: Yes: Other (sedated) Labs: CBC, BMP 01/25/19 05:45 01/25/19 05:45 INR, PTT INR 1.65 (0.83-1.09) H 01/22/19 05:15 Fibrinogen 359.0 mg/dL (238-498) 01/25/19 10:00 Problem List - Problems (1) Acute exacerbation of chronic obstructive pulmonary disease (COPD) Assessment/Plan: -Pulmonary consult -IV abx -Bronchodilators -Mechanical vent -On Solucortef Problems reviewed: Yes Code(s): J44.1 - CHRONIC OBSTRUCTIVE PULMONARY DISEASE W (ACUTE) EXACERBATION (2) Morbid obesity Assessment/Plan: -On nepro -Seen by Nutrition -A1c 8.8 Problems reviewed: Yes Code(s): E66.01 - MORBID (SEVERE) OBESITY DUE TO EXCESS CALORIES (3) Pneumonia Assessment/Plan: -Pulmonary consult -IV abx -Bronchodilators -Mechanical vent -ID consult -IV abx -Blood Cultures pending -Legionella UC negative -CXR reviewed -Overall poor prognosis Problems reviewed: Yes Code(s): J18.9 - PNEUMONIA, UNSPECIFIED ORGANISM (4) Acute on chronic diastolic CHF (congestive heart failure) Assessment/Plan: -Pulmonary consult -IV abx -Bronchodilators -ID consult -IV diuresis on hold -Cardiology consult -fluid restriction -monitor I&O's Problems reviewed: Yes Code(s): I50.33 - ACUTE ON CHRONIC DIASTOLIC (CONGESTIVE) HEART FAILURE (5) Hyponatremia Assessment/Plan: -Nephrology consult -improved - fluid restriction -Monitor trend Problems reviewed: Yes Code(s): E87.1 - HYPO-OSMOLALITY AND HYPONATREMIA (6) Diabetes Assessment/Plan: -A1c at 8.8 -BGM AC HS -Levemir 16 U BID -ISS Problems reviewed: Yes Code(s): E11.9 - TYPE 2 DIABETES MELLITUS WITHOUT COMPLICATIONS (7) Bullous dermatitis Assessment/Plan: -BLLE -Seen by dermatology -Apply triamcinolone BLLE Problems reviewed: Yes Code(s): L13.9 - BULLOUS DISORDER, UNSPECIFIED (8) Goiter Assessment/Plan: -Will need workup at tertiary care center -U/S unable to do due to anatomy and CVC Problems reviewed: Yes Code(s): E04.9 - NONTOXIC GOITER, UNSPECIFIED (9) Anemia Assessment/Plan: -Stool OB pending -Iron studies normal -B12+ thyroid unremarkable -likely 2/2 to CKD, may benefit from procrit -Nephrology on board Problems reviewed: Yes Code(s): D64.9 - ANEMIA, UNSPECIFIED (10) Hypokalemia Assessment/Plan: -replenish -CMP in AM Problems reviewed: Yes Code(s): E87.6 - HYPOKALEMIA Assessment/Plan (8) Shock Assessment/Plan: -Continue levophed -Titrate as pt improves Code(s): R57.9 - SHOCK, UNSPECIFIED (9) Acute renal insufficiency Assessment/Plan: -HD/UF per renal -lasix 100 mg IVP BID-on hold for now -Nephrology on board Code(s): N28.9 - DISORDER OF KIDNEY AND URETER, UNSPECIFIED (10) Hypotension Assessment/Plan: -Continue levophed -Titrate as pt improves -On solucortef Code(s): I95.9 - HYPOTENSION, UNSPECIFIED (11) DVT of upper extremity (deep vein thrombosis) Assessment/Plan: -on xarelto 15mg Code(s): I82.629 - ACUTE EMBOLISM AND THROMBOSIS OF DEEP VN UNSP UP EXTREM (12) Hyperthyroidism Assessment/Plan: -Tapazole stopped -euthyroid -endocrine consult Code(s): E05.90 - THYROTOXICOSIS, UNSP WITHOUT THYROTOXIC CRISIS OR STORM (13) Acute on chronic diastolic CHF (congestive heart failure) Assessment/Plan: -Last CXR with bilateral pleural effusions -on levophed
--- NOTE | 2019-01-25 11:39 | PN ---
Teaching Attending Note Name of Resident: Andrés Tai ATTENDING PHYSICIAN STATEMENT I saw and evaluated the patient. I reviewed the resident's note and discussed the case with the resident. I agree with the resident's findings and plan as documented. SUBJECTIVE: Pt seen and examined in the ICU. Remains intubated, sedated on levophed gtt. OBJECTIVE: Vital Signs Period Temp Pulse Resp BP Sys/Woodall Pulse Ox Last 24 Hr 96.9 F-97.8 F 77-102 24-27 90-133/47-119 96-100 Intake & Output 01/22/19 01/23/19 01/24/19 01/25/19 23:59 23:59 23:59 23:59 Intake Total 2039 3385 2591.5 694.7 Output Total 120 3920 195 30 Balance 1919 -535 2396.5 664.7 Weight 163.021 kg 163.021 kg 159.256 kg 160.708 kg Gen: intubated, sedated Heart: RRR Lung: decreased breath sounds at the bases Abd: soft, obese Ext: + edema CBC, BMP 01/25/19 05:45 01/25/19 05:45 Active Medications Acetaminophen (Tylenol -) 650 mg PO Q6H PRN PRN Reason: PAIN LEVEL 1-5 Albuterol/Ipratropium (Duoneb -) 1 amp NEB RQID [facility] Last Admin: 01/24/19 21:20 Dose: 1 amp Amino Acids (Prosource No Carb Liquid Pkt) 30 ml PO BID@0800,1730 [facility] Last Admin: 01/25/19 08:39 Dose: 30 ml Atorvastatin Calcium (Lipitor -) 10 mg PO [facility] Last Admin: 01/24/19 22:01 Dose: 10 mg Chlorhexidine Gluconate (Hibiclens For Decolonization -) 1 applic TP HS [facility] Last Admin: 01/24/19 22:02 Dose: 1 applic Dorzolamide HCl (Trusopt 2%) 1 drop OU BID [facility] Last Admin: 01/25/19 09:27 Dose: 1 drop Fludrocortisone Acetate (Florinef -) 0.05 mg PO DAILY [facility] Last Admin: 01/25/19 09:21 Dose: 0.05 mg Hydrocortisone Sodium Succinate (Solu-Cortef -) 50 mg IVPB Q6H [facility] Last Admin: 01/25/19 08:39 Dose: 50 mg Norepinephrine Bitartrate 8, (000 mcg/ Sodium Chloride) 500 mls @ 17.83 mls/hr IV ASDIR [facility]; Protocol Last Titration: 01/24/19 14:15 Dose: 0.05 mcg/kg/min, 29.72 mls/hr Famotidine/Sodium Chloride (Pepcid 20 Mg Premixed Ivpb -) 20 mg in 50 mls @ 100 mls/hr IVPB DAILY@0800 [facility] Last Admin: 01/25/19 08:38 Dose: 100 mls/hr Fentanyl 500 mcg/ Dextrose 100 mls @ 5 mls/hr IVPB TITR [facility]; Protocol Last Admin: 01/25/19 05:58 Dose: 100 mcg/hr, 20 mls/hr Potassium Chloride (Potassium Chloride 10 Meq Premix Ivpb -) 10 meq in 100 mls @ 100 mls/hr IVPB Q60M [facility] Stop: 01/25/19 11:44 Last Admin: 01/25/19 10:38 Dose: 100 mls/hr Insulin Aspart (Novolog Vial Sliding Scale -) 1 vial SQ Q4HPO [facility]; Protocol Last Admin: 01/25/19 05:51 Dose: Not Given Insulin Detemir (Levemir Vial) 16 units SQ AM [facility] Last Admin: 01/25/19 06:49 Dose: 16 units Insulin Detemir (Levemir Vial) 16 units SQ HS [facility] Last Admin: 01/24/19 22:01 Dose: 16 units Multi-Ingredient Lotion (Eucerin (Large Jar) -) 1 applic TP BID PRN PRN Reason: DRY SKIN Last Admin: 01/24/19 09:21 Dose: 1 applic Nystatin (Nystatin Oral Suspension -) 500,000 units PO Q6HPO [facility] Last Admin: 01/25/19 05:59 Dose: 500,000 units Rivaroxaban (Xarelto) 15 mg PO DAILY@1800 [facility] Last Admin: 01/24/19 17:12 Dose: 15 mg Silver Sulfadiazine (Silvadene -) 1 applic TP BID [facility] Last Admin: 01/25/19 09:27 Dose: 1 applic Triamcinolone Acetonide (Aristocort 0.025% Ointment -) 1 applic TP BID [facility] Last Admin: 01/25/19 09:28 Dose: 1 applic ASSESSMENT AND PLAN: Acute Hypoxic and Hypercapneic Respiratory Failure Pneumonia UTI Shock - ?Septic Acute on Chronic Diastolic Heart Failure Volume Overload Acute Kidney Injury Hyponatremia Morbid Obesity Obstructive Sleep Apnea Obesity Hypoventilation Syndrome COPD Anemia h/o DVT HTN - continue antibiotics - monitor urine output, creatinine - HD per renal - titrate pressors to maintain MAP >65 - continue stress dose steroids - O2, PEEP to keep SpO2 >90% - inhaled bronchodilators - continue anticoagulation - daily sedation vacations to assess mental status - spontaneous breathing trials as tolerated when mental status improved - enteral feeds - DVT/GI prophylaxis - continue ICU monitoring critical care time spent in reviewing chart, evaluating patient and formulating plan 35 min Problem List - Problems (1) Acute on chronic diastolic CHF (congestive heart failure) Code(s): I50.33 - ACUTE ON CHRONIC DIASTOLIC (CONGESTIVE) HEART FAILURE (2) Morbid (severe) obesity due to excess calories Code(s): E66.01 - MORBID (SEVERE) OBESITY DUE TO EXCESS CALORIES
[2019-01-25] MEDS ORDERED: MIDAZOLAM HCL 5 MG/1 ML Single Dose Vial IVPUSH ONE (12:50)
[2019-01-25 13:19] VITALS: BMI 55.4
--- NOTE | 2019-01-25 13:22 | PROC ---
Central Line Insertion Indication: Other (HD access) Risks and Benefits Explained: Yes Consent on Chart: Yes Central Line: Dialysis Cath, Tri Lumen Anesthesia: 1% Lidocaine Sterile Technique: Yes Ultrasound Guided Assistance: Yes Position: Left Internal Jugular Post Insertion: Yes: Chest X-Ray Ordered Sterile Dressing Applied: Yes
[2019-01-25] MEDS ORDERED: SODIUM CHLORIDE 250 ML IV PRN (13:30)
--- NOTE | 2019-01-25 13:40 | PN ---
Progress Note (short form) - Note Progress Note: Renal follow up for hyponatremia Seen and examined in the ICU on vent via ET tube FiO2 is 100% reamains oliguric on levophed Vital Signs Temperature 97.3 F L 01/25/19 10:00 Pulse Rate 93 H 01/25/19 12:00 Respiratory Rate 24 H 01/25/19 12:00 Blood Pressure 86/55 L 01/25/19 12:00 O2 Sat by Pulse Oximetry (%) 100 01/25/19 10:26 Intake & Output 01/22/19 01/23/19 01/24/19 01/25/19 23:59 23:59 23:59 23:59 Intake Total 2039 3385 2591.5 694.7 Output Total 120 3920 195 30 Balance 1919 -535 2396.5 664.7 Weight 163.021 kg 163.021 kg 159.256 kg 160.708 kg on vent via ET tube RRR Dec BS Obese, NT/ND ++ edema in upper and lower extremity CBC, BMP 01/25/19 05:45 01/25/19 05:45 Current Medications Acetaminophen (Tylenol -) 650 mg PO Q6H PRN PRN Reason: PAIN LEVEL 1-5 Albumin Human (Albumin Human 25%) 12.5 gm IVPB Q30M [facility] Stop: 01/25/19 15:01 Albuterol/Ipratropium (Duoneb -) 1 amp NEB RQID [facility] Last Admin: 01/25/19 07:35 Dose: 1 amp Amino Acids (Prosource No Carb Liquid Pkt) 30 ml PO BID@0800,1730 [facility] Last Admin: 01/25/19 08:39 Dose: 30 ml Atorvastatin Calcium (Lipitor -) 10 mg PO HS [facility] Last Admin: 01/24/19 22:01 Dose: 10 mg Chlorhexidine Gluconate (Hibiclens For Decolonization -) 1 applic TP HS [facility] Last Admin: 01/24/19 22:02 Dose: 1 applic Dorzolamide HCl (Trusopt 2%) 1 drop OU BID [facility] Last Admin: 01/25/19 09:27 Dose: 1 drop Fludrocortisone Acetate (Florinef -) 0.05 mg PO DAILY [facility] Last Admin: 01/25/19 09:21 Dose: 0.05 mg Hydrocortisone Sodium Succinate (Solu-Cortef -) 50 mg IVPB Q6H [facility] Last Admin: 01/25/19 08:39 Dose: 50 mg Norepinephrine Bitartrate 8, (000 mcg/ Sodium Chloride) 500 mls @ 17.83 mls/hr IV ASDIR [facility]; Protocol Last Titration: 01/24/19 14:15 Dose: 0.05 mcg/kg/min, 29.72 mls/hr Famotidine/Sodium Chloride (Pepcid 20 Mg Premixed Ivpb -) 20 mg in 50 mls @ 100 mls/hr IVPB DAILY@0800 [facility] Last Admin: 01/25/19 08:38 Dose: 100 mls/hr Fentanyl 500 mcg/ Dextrose 100 mls @ 5 mls/hr IVPB TITR [facility]; Protocol Last Admin: 01/25/19 05:58 Dose: 100 mcg/hr, 20 mls/hr Sodium Chloride (Normal Saline -) 250 mls @ 3,000 mls/hr IV PRN PRN PRN Reason: Hypotension during Dialysis Stop: 01/26/19 13:30 Insulin Aspart (Novolog Vial Sliding Scale -) 1 vial SQ Q4HPO [facility]; Protocol Last Admin: 01/25/19 12:01 Dose: Not Given Insulin Detemir (Levemir Vial) 16 units SQ AM [facility] Last Admin: 01/25/19 06:49 Dose: 16 units Insulin Detemir (Levemir Vial) 16 units SQ HS [facility] Last Admin: 01/24/19 22:01 Dose: 16 units Multi-Ingredient Lotion (Eucerin (Large Jar) -) 1 applic TP BID PRN PRN Reason: DRY SKIN Last Admin: 01/24/19 09:21 Dose: 1 applic Nystatin (Nystatin Oral Suspension -) 500,000 units PO Q6HPO [facility] Last Admin: 01/25/19 12:02 Dose: 500,000 units Rivaroxaban (Xarelto) 15 mg PO DAILY@1800 [facility] Last Admin: 01/24/19 17:12 Dose: 15 mg Silver Sulfadiazine (Silvadene -) 1 applic TP BID [facility] Last Admin: 01/25/19 09:27 Dose: 1 applic Triamcinolone Acetonide (Aristocort 0.025% Ointment -) 1 applic TP BID [facility] Last Admin: 01/25/19 09:28 Dose: 1 applic 48 year old gentleman with history of morbid obesity, COPD, BONY , diastolic heart failure, anemia, hypertension, hypothyrodism, DVT presented with back pain from the [place] and found to have hyponatremia with serum Na of 123. 1. Hypervolemic hyponatremia 2. Diastolic CHF with pleural effusions 3. Acute on chronic lower back pain 4. Morbid obesity 5. COPD/BONY 6. Hypotension/shock r/o sepsis 7. Acute renal failure secondary to sepsis 8. Hypokalemia Remains oliguric at this time. No signs of renal recovery as of yet. will need additional HD/UF today. Catheter inserted by ICU team. UF goal is 3.5L as tolerated Continue IV Lasix to promote urine output Continue vent support overall prognosis is poor. awaiting possible transfer to tertiary care center Thank you Dennis Aldana DO
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
[2019-01-25] MEDS ORDERED: PT OWN MED DRAWER 7, Y5N ONE (14:09)
[2019-01-25] MEDS: NOREPINEPHRINE BITARTRATE 8,000 MCG in SODIUM CHLORIDE 492 ML IV SCH ×2 (14:27→14:28)
[2019-01-25] MEDS: ALBUMIN HUMAN 25% 12.5 GM/50 ML VIAL IVPB SCH ×3 (15:30→18:28)
--- NOTE | 2019-01-25 15:32 | PN ---
Physical Exam: SUBJECTIVE: Patient seen and examined in ICU. No acute events overnight. OBJECTIVE: Vital Signs Period Temp Pulse Resp BP Sys/Woodall Pulse Ox Last 24 Hr 96.9 F-97.8 F 82-102 24-27 86-133/55-119 96-100 GENERAL: The patient is awake, not in distress. NECK: enlarged, thyroid mass. LUNGS: Breath sounds reduced difficult to assess due to body habitus. HEART: tachycardic and regular rhythm, S1, S2 without murmur, rub or gallop. ABDOMEN: Soft, nontender, nondistended, globose. EXTREMITIES: 2+ pulses, warm, well-perfused, no edema. SKIN: LLE (foot) bullous lesion and diffuse desquamation. Laboratory Results - last 24 hr 01/24/19 01/24/19 01/25/19 19:12 21:36 02:02 WBC Corrected WBC (auto) RBC Hgb Hct MCV MCH MCHC RDW Plt Count MPV Absolute Neuts (auto) Neutrophils % Neutrophils % (Manual) Band Neutrophils % Lymphocytes % Lymphocytes % (Manual) Monocytes % Monocytes % (Manual) Eosinophils % Eosinophils % (Manual) Basophils % Basophils % (Manual) Myelocytes % (Man) Promyelocytes % (Man) Blast Cells % (Manual) Nucleated RBC % Metamyelocytes Hypochromia Platelet Estimate Polychromasia Poikilocytosis Basophilic Stippling Anisocytosis Microcytosis Macrocytosis Target Cells Tear Drop Cells Ovalocytes Acanthocytes (Spur) Fibrinogen Sodium Potassium Chloride Carbon Dioxide Anion Gap BUN Creatinine Est GFR (CKD-EPI)AfAm Est GFR (CKD-EPI)NonAf POC Glucometer 127 138 143 Random Glucose Calcium Iron TIBC Iron Saturation Unsaturated IBC Ferritin Total Bilirubin AST ALT Alkaline Phosphatase Total Protein Albumin Vitamin B12 Random Vancomycin 01/25/19 01/25/19 01/25/19 05:39 05:45 05:45 WBC 8.5 Corrected WBC (auto) 7.08 RBC 2.31 L Hgb 7.5 L Hct 21.7 L MCV 94.2 MCH 32.4 MCHC 34.4 RDW 15.1 Plt Count 49 L D MPV 8.3 Absolute Neuts (auto) 6.2 Neutrophils % 93.7 H Neutrophils % (Manual) 88.7 H Band Neutrophils % 3.1 Lymphocytes % 4.1 L D Lymphocytes % (Manual) 4.1 L D Monocytes % 2.0 L Monocytes % (Manual) 1 L Eosinophils % 0.1 Eosinophils % (Manual) 0.0 Basophils % 0.1 Basophils % (Manual) 0.0 Myelocytes % (Man) 2 D Promyelocytes % (Man) 0 Blast Cells % (Manual) 0 Nucleated RBC % Metamyelocytes 1 D Hypochromia 0 Platelet Estimate Decreased Polychromasia 1+ Poikilocytosis 1+ Basophilic Stippling 1+ Anisocytosis 1+ Microcytosis 0 Macrocytosis 1+ Target Cells 1+ Tear Drop Cells 1+ Ovalocytes 1+ Acanthocytes (Spur) 1+ Fibrinogen Sodium Potassium Chloride Carbon Dioxide Anion Gap BUN Creatinine Est GFR (CKD-EPI)AfAm Est GFR (CKD-EPI)NonAf POC Glucometer 132 Random Glucose Calcium Iron TIBC Iron Saturation Unsaturated IBC Ferritin Total Bilirubin AST ALT Alkaline Phosphatase Total Protein Albumin Vitamin B12 Random Vancomycin 24.3 01/25/19 01/25/19 01/25/19 05:45 10:00 12:00 WBC Corrected WBC (auto) RBC Hgb Hct MCV MCH MCHC RDW Plt Count MPV Absolute Neuts (auto) Neutrophils % Neutrophils % (Manual) Band Neutrophils % Lymphocytes % Lymphocytes % (Manual) Monocytes % Monocytes % (Manual) Eosinophils % Eosinophils % (Manual) Basophils % Basophils % (Manual) Myelocytes % (Man) Promyelocytes % (Man) Blast Cells % (Manual) Nucleated RBC % Metamyelocytes Hypochromia Platelet Estimate Polychromasia Poikilocytosis Basophilic Stippling Anisocytosis Microcytosis Macrocytosis Target Cells Tear Drop Cells Ovalocytes Acanthocytes (Spur) Fibrinogen 359.0 Sodium 136 Potassium 3.0 L Chloride 104 Carbon Dioxide 20 L Anion Gap 12 BUN 68.9 H Creatinine 4.1 H Est GFR (CKD-EPI)AfAm 18.65 Est GFR (CKD-EPI)NonAf 16.09 POC Glucometer 103 Random Glucose 139 H Calcium 8.7 Iron 49 L TIBC 97 L Iron Saturation 50 H Unsaturated IBC 48 L Ferritin 637.6 H Total Bilirubin 0.5 AST 39 H ALT 75 H Alkaline Phosphatase 153 H Total Protein 4.3 L Albumin 2.2 L Vitamin B12 2104 H Random Vancomycin 01/25/19 14:27 WBC Corrected WBC (auto) RBC Hgb Hct MCV MCH MCHC RDW Plt Count MPV Absolute Neuts (auto) Neutrophils % Neutrophils % (Manual) Band Neutrophils % Lymphocytes % Lymphocytes % (Manual) Monocytes % Monocytes % (Manual) Eosinophils % Eosinophils % (Manual) Basophils % Basophils % (Manual) Myelocytes % (Man) Promyelocytes % (Man) Blast Cells % (Manual) Nucleated RBC % Metamyelocytes Hypochromia Platelet Estimate Polychromasia Poikilocytosis Basophilic Stippling Anisocytosis Microcytosis Macrocytosis Target Cells Tear Drop Cells Ovalocytes Acanthocytes (Spur) Fibrinogen Sodium Potassium Chloride Carbon Dioxide Anion Gap BUN Creatinine Est GFR (CKD-EPI)AfAm Est GFR (CKD-EPI)NonAf POC Glucometer 94 Random Glucose Calcium Iron TIBC Iron Saturation Unsaturated IBC Ferritin Total Bilirubin AST ALT Alkaline Phosphatase Total Protein Albumin Vitamin B12 Random Vancomycin Active Medications Generic Name Dose Route Start Last Admin Trade Name Freq PRN Reason Stop Dose Admin Acetaminophen 650 mg 01/14/19 14:02 Tylenol - PO Q6H PRN PAIN LEVEL 1-5 Albuterol/Ipratropium 1 amp 01/14/19 16:00 01/25/19 07:35 Duoneb - NEB 1 amp RQID PALLAVI Administration Amino Acids 30 ml 01/22/19 17:30 01/25/19 08:39 Prosource No Carb Liquid Pkt PO 30 ml BID@0800,1730 PALLAVI Administration Atorvastatin Calcium 10 mg 01/14/19 22:00 01/24/19 22:01 Lipitor - PO 10 mg HS PALLAVI Administration Chlorhexidine Gluconate 1 applic 01/14/19 22:00 01/24/19 22:02 Hibiclens For Decolonization - TP 1 applic HS PALLAVI Administration Dorzolamide HCl 1 drop 01/14/19 22:00 01/25/19 09:27 Trusopt 2% OU 1 drop BID PALLAVI Administration Fludrocortisone Acetate 0.05 mg 01/21/19 10:00 01/25/19 09:21 Florinef - PO 0.05 mg DAILY PALLAVI Administration Hydrocortisone Sodium Succinate 50 mg 01/20/19 14:00 01/25/19 14:30 Solu-Cortef - IVPB 50 mg Q6H PALLAVI Administration Norepinephrine Bitartrate 8, 500 mls @ 17.83 mls/hr 01/18/19 09:30 01/25/19 14:28 000 mcg/ Sodium Chloride IV Not Given ASDIR PALLAVI Protocol 0.03 MCG/KG/MIN Famotidine/Sodium Chloride 20 mg in 50 mls @ 100 mls/hr 01/21/19 15:30 08:38 Pepcid 20 Mg Premixed Ivpb - IVPB 100 mls/hr DAILY@0800 PALLAVI Administration Fentanyl 500 mcg/ Dextrose 100 mls @ 5 mls/hr 01/23/19 11:30 01/25/19 14:29 IVPB Not Given TITR [facility] Protocol 25 MCG/HR Sodium Chloride 250 mls @ 3,000 mls/hr 01/25/19 13:30 Normal Saline - IV 01/26/19 13:30 PRN PRN Hypotension during Dialysis Insulin Aspart 1 vial 01/20/19 01:00 01/25/19 14:29 Novolog Vial Sliding Scale - SQ Not Given Q4HPO [facility] Protocol Insulin Detemir 16 units 01/23/19 07:00 01/25/19 06:49 Levemir Vial SQ 16 units AM PALLAVI Administration Insulin Detemir 16 units 01/22/19 22:00 01/24/19 22:01 Levemir Vial SQ 16 units HS PALLAVI Administration Multi-Ingredient Lotion 1 applic 01/14/19 14:02 01/24/19 09:21 Eucerin (Large Jar) - TP 1 applic BID PRN Administration DRY SKIN Nystatin 500,000 units 01/14/19 18:00 01/25/19 12:02 Nystatin Oral Suspension - PO 500,000 units Q6HPO PALLAVI Administration Rivaroxaban 15 mg 01/19/19 18:00 01/24/19 17:12 Xarelto PO 15 mg DAILY@1800 PALLAVI Administration Silver Sulfadiazine 1 applic 01/25/19 13:59 Silvadene - TP BID PALLAVI Triamcinolone Acetonide 1 applic 01/22/19 10:00 01/25/19 09:28 Aristocort 0.025% Ointment - TP 1 applic BID PALLAVI Administration ASSESSMENT/PLAN: 48 yo M with PMH of morbid obesity, OHS, BONY, COPD, diastolic CHF, anemia, history of UGI bleeding, HTN, hyperthyroidism, DVTs, who was initially admitted for acute on chronic diastolic CHF. During hospital course( 01/14/19) patient was found hypotensive and lethargic, and was transferred to the ICU. on 01/21, pt was intubated 2/2 acute hypercapneic respiratory failure Neurology:Acute toxic metabolic encephalopathy -awake and alert - on fentanyl for analgesia Cardiology Hypervolemia -On Levophed , titrate as tolerated to MAP >65 -Cardiology (Dr. Chowdhury)recs appreciated - was on vaso over the weekend, was titrated off. on 0.05mcg/kg/hr levo - on famotidine 20 IVPB HFpEF -on lasix -last ECHO 01/11: nondiagnostic, limited in quality. nl EF. will consider repeat -strict I&O, fluid restrictions ID: Sepsis 2/2 proteus UTI -d/c Zosyn 3.375 q8h day 4, continue with meropenem. -ID (Dr. Calles)recs appreciated -vanc level normal Pulmonology: Acute hypercapnic resp failure, OHS, COPD -intubated. - c/w IV hydrocortisone 50 Q6h, Fludrocortisone PO 0.05 mg Renal: Hypervolemic hyponatremia, MARVA - continue to monitor volume status per A line pressure. - shiley placed to undergo UF, UO still minimal despite high dose diuretics. -Na improved to normal. -Continue IVlasix 120( with goal of converting to non-oliguria) -renal/ bladder u/s no evidence of hydronephrosis or obstruction. -will continue monitor I&O and Cr Heme: Hx of DVT's -continue xarelto 20mg daily Derm-> desquamated skin - derm consult (Dr. West) appreciate recs. unlikely autoimmune, likely 2/2 edema and stasis dermatitis . continue w/ wound care and dressing - continue to monitor for worsening. Endo: Hypothyroid, DM -low T4, consider repeating TFTs -Endo recs appreciated -thyroid mass, neck u/s poor study due to body habitus. pt cannot fit in CT machine at [facility], unable to get rpt CT -patient had head and neck surgery evaluation at [facility] (Dr. Joon Waite) in 2016 and thyroidectomy recommended. head and neck re-evaluation appreciated -thyroid enlargement evident on examination, continues to show on imaging studies, per prior records prior biopsies have been negative -c/w levemir 20units bid -c/w ISS and BGM F/E/N -minimize IVF -routine bmp monitoring DVT Prophylaxis: -c/w Xarelto PO 20mg daily Dispo: continue ICU monitoring , transfer initiated at [facility] and they have accepted patient but pending they obtain a bed. Visit type - Emergency Visit Emergency Visit: No - New Patient This patient is new to me today: Yes Date on this admission: 01/25/19 - Critical Care Critical Care patient: Yes Total Critical Care Time (in minutes): 35 Critical Care Statement: The care of this patient involved high complexity decision making to prevent further life threatening deterioration of the patient 's condition and/or to evaluate & treat vital organ system(s) failure or risk of failure. - Discharge Referral Referred to [facility] Med [facility] No ATTENDING PHYSICIAN STATEMENT I saw and evaluated the patient. I reviewed the resident's note and discussed the case with the resident. I agree with the resident's findings and plan as documented. SUBJECTIVE: OBJECTIVE: ASSESSMENT AND PLAN:
[2019-01-25] MEDS: RIVAROXABAN 15 MG TABLET PO SCH (17:28)
[2019-01-25] MEDS ORDERED: DEXTROSE 50%-WATER - 25 GM/50 ML VIAL IVPUSH ONE (19:06)
[2019-01-25] MEDS ORDERED: DEXTROSE 50%-WATER - 25 GM/50 ML VIAL ONE (19:24)
[2019-01-25] MEDS: CHLORHEXIDINE GLUCONATE 4% CLEANSER FOR DECOLONIZATION TP SCH (21:57)
[2019-01-25] MEDS: ATORVASTATIN CA 10 MG TABLET (FP) PO SCH (21:58)
[2019-01-25] MEDS: SILVER SULFADIAZINE 1% TOP CREAM 400 GM JAR TP SCH (21:59)
[2019-01-26] MEDS: NYSTATIN 500,000 UNITS/5 ML SUSPENSION PO SCH ×4 (01:04→17:40)
[2019-01-26] MEDS: INSULIN SLIDING SCALE (NOVOLOG) 1 VIAL SQ SCH ×5 (01:05→17:39)
[2019-01-26] MEDS: HYDROCORTISONE SOD SUCCINATE 100 MG/2 ML VIAL IVPB SCH ×3 (01:16→13:57)
[2019-01-26 01:35] LABS: BLOOD UREA NITROGEN 50.8 mg/dL (7-18); CALCIUM 8.6 mg/dL (8.5-10.1); CREATININE 3.4 mg/dL (0.55-1.3)
[2019-01-26 01:47] LABS: POTASSIUM 2.6 mmol/L (3.5-5.1)
[2019-01-26] MEDS: KCL 10 MEQ IVPB 10 MEQ/100 ML INFUS.BAG IVPB SCH ×6 (02:29→10:27)
[2019-01-26] MEDS ORDERED: fentaNYL CITRATE 250 MCG/5 ML VIAL ONE ×3 (04:46→16:15)
[2019-01-26] MEDS: FENTANYL INJECTION 500 MCG in DEXTROSE 5%-WATER - 90 ML IVPB SCH ×2 (04:50→11:47)
[2019-01-26] MEDS: NOREPINEPHRINE BITARTRATE 8,000 MCG in SODIUM CHLORIDE 492 ML IV SCH ×2 (04:56→10:27)
[2019-01-26] MEDS ORDERED: INSULIN (LEVEMIR) 100 UNITS/ML UNITS SQ SCH ×2 (05:21→22:00)
--- NOTE | 2019-01-26 05:22 | PN ---
Progress Note, Physician Chief Complaint: I cut down on insulin to 12 BID instead of 16 bID and increase tube feeding rate to 50 from 42. BGM was less than 100 last 24 hour. - Current Medication List Current Medications: Active Medications Acetaminophen (Tylenol -) 650 mg PO Q6H PRN PRN Reason: PAIN LEVEL 1-5 Albuterol/Ipratropium (Duoneb -) 1 amp NEB RQID [facility] Last Admin: 01/25/19 20:14 Dose: 1 amp Amino Acids (Prosource No Carb Liquid Pkt) 30 ml PO BID@0800,1730 [facility] Last Admin: 01/25/19 17:28 Dose: 30 ml Atorvastatin Calcium (Lipitor -) 10 mg PO HS [facility] Last Admin: 01/25/19 21:58 Dose: 10 mg Chlorhexidine Gluconate (Hibiclens For Decolonization -) 1 applic TP HS [facility] Last Admin: 01/25/19 21:57 Dose: 1 applic Dorzolamide HCl (Trusopt 2%) 1 drop OU BID [facility] Last Admin: 01/25/19 22:00 Dose: 1 drop Fludrocortisone Acetate (Florinef -) 0.05 mg PO DAILY [facility] Last Admin: 01/25/19 09:21 Dose: 0.05 mg Hydrocortisone Sodium Succinate (Solu-Cortef -) 50 mg IVPB Q6H [facility] Last Admin: 01/26/19 01:16 Dose: 50 mg Norepinephrine Bitartrate 8, (000 mcg/ Sodium Chloride) 500 mls @ 17.83 mls/hr IV ASDIR [facility]; Protocol Last Admin: 01/26/19 04:56 Dose: 0.05 mcg/kg/min, 29.72 mls/hr Famotidine/Sodium Chloride (Pepcid 20 Mg Premixed Ivpb -) 20 mg in 50 mls @ 100 mls/hr IVPB DAILY@0800 [facility] Last Admin: 01/25/19 08:38 Dose: 100 mls/hr Fentanyl 500 mcg/ Dextrose 100 mls @ 5 mls/hr IVPB TITR [facility]; Protocol Last Admin: 01/26/19 04:50 Dose: 100 mcg/hr, 20 mls/hr Sodium Chloride (Normal Saline -) 250 mls @ 3,000 mls/hr IV PRN PRN PRN Reason: Hypotension during Dialysis Stop: 01/26/19 13:30 Insulin Aspart (Novolog Vial Sliding Scale -) 1 vial SQ Q4HPO [facility]; Protocol Last Admin: 01/26/19 05:04 Dose: Not Given Insulin Detemir (Levemir Vial) 12 units SQ HS [facility] Insulin Detemir (Levemir Vial) 12 units SQ AM [facility] Multi-Ingredient Lotion (Eucerin (Large Jar) -) 1 applic TP BID PRN PRN Reason: DRY SKIN Last Admin: 01/24/19 09:21 Dose: 1 applic Nystatin (Nystatin Oral Suspension -) 500,000 units PO Q6HPO [facility] Last Admin: 01/26/19 05:04 Dose: 500,000 units Rivaroxaban (Xarelto) 15 mg PO DAILY@1800 [facility] Last Admin: 01/25/19 17:28 Dose: 15 mg Silver Sulfadiazine (Silvadene -) 1 applic TP BID [facility] Last Admin: 01/25/19 21:59 Dose: 1 applic Triamcinolone Acetonide (Aristocort 0.025% Ointment -) 1 applic TP BID [facility] Last Admin: 01/25/19 22:04 Dose: 1 applic - Objective Vital Signs: Vital Signs Temperature 98.6 F 01/25/19 21:55 Pulse Rate 97 H 01/26/19 02:40 Respiratory Rate 22 H 01/26/19 04:18 Blood Pressure 104/70 01/26/19 02:40 O2 Sat by Pulse Oximetry (%) 100 01/25/19 23:06 Labs: CBC, BMP 01/25/19 05:45 01/26/19 00:15 INR, PTT INR 1.65 (0.83-1.09) H 01/22/19 05:15 Fibrinogen 359.0 mg/dL (238-498) 01/25/19 10:00
[2019-01-26 06:54] LABS: MAGNESIUM 1.8 mg/dL (1.8-2.4); PHOSPHOROUS 2.2 mg/dL (2.5-4.9)
[2019-01-26 07:08] LABS: BASO % 0.1 % (0-2.0); CORRECTED WBC 4.45 K/mm3; EOS % 0.1 % (0-4.5); HEMATOCRIT 22.5 % (35.4-49); HEMOGLOBIN 7.6 GM/dL (11.7-16.9); LYMPH % 4.7 % (8-40); MCHC 33.9 g/dl (32.0-35.9); MEAN CELL VOLUME 94.4 fl (80-96); MEAN PLT VOLUME 9.6 fl (7.5-11.1); MONO % 1.8 % (3.8-10.2); NEUT % 93.3 % (42.8-82.8); PLATELET COUNT 50 K/MM3 (134-434); RBC 2.39 M/mm3 (4.00-5.60); WHITE BLOOD COUNT 6.1 K/mm3 (4.0-10.0)
[2019-01-26] MEDS ORDERED: POTASSIUM CHLORIDE 20 MEQ PREMIX IVPB 100 ML IVPB ONE (07:08)
[2019-01-26] MEDS ORDERED: SODIUM PHOSPHATE - 15 MM in SODIUM CHLORIDE 250 ML IVPB ONE (07:10)
[2019-01-26] MEDS: ALBUTEROL SO4 2.5/IPRATROPIUM 0.5 INH SOL 3 ML VIAL.NEB. NEB SCH ×3 (07:25→15:40)
[2019-01-26] MEDS: AMINO ACIDS/PROTEIN HYDROLYS 30 ML LIQUID.PKT PO SCH ×2 (08:12→17:40)
[2019-01-26] MEDS: FAMOTIDINE 20 MG/50 ML IVPB 20 MG/50 ML MG IVPB SCH (08:12)
[2019-01-26 08:40] LABS: BLOOD UREA NITROGEN 53.8 mg/dL (7-18); CALCIUM 8.6 mg/dL (8.5-10.1); CREATININE 3.5 mg/dL (0.55-1.3)
[2019-01-26] MEDS: FLUDROCORTISONE ACETATE 0.1 MG TABLET (FP) PO SCH (09:28)
[2019-01-26] MEDS: SILVER SULFADIAZINE 1% TOP CREAM 400 GM JAR TP SCH (09:29)
[2019-01-26] MEDS: TRIAMCINOLONE ACET 0.025% OINTMENT 15 GM TUBE TP SCH (09:31)
--- NOTE | 2019-01-26 09:41 | PN ---
Progress Note (short form) - Note Progress Note: s/p HD yesterday- left IJ cvp remains intubated awaiting transfer remains on levophed now on vancomycin by level Vital Signs Period Temp Pulse Resp BP Sys/Woodall Pulse Ox Last 24 Hr 97.3 F-98.7 F 83-290 21-27 77-135/50-93 100-100 opens eyes cor-rrr lungs decreased bs at bases abd firm, nt ext +edema, multiple skin tears right/left IJ CBC, BMP 01/26/19 05:00 01/26/19 05:00 Microbiology 01/21/19 09:20 Blood - Shiley Catheter Blood Culture - Preliminary NO GROWTH OBTAINED AFTER 96 HOURS, INCUBATION TO CONTINUE FOR 1 DAYS. 01/21/19 09:20 Blood - Shiley Catheter Blood Culture - Preliminary NO GROWTH OBTAINED AFTER 96 HOURS, INCUBATION TO CONTINUE FOR 1 DAYS. 01/21/19 12:00 Sputum - Endotrachea Suction/Ventilator Gram Stain - Final 01/21/19 12:00 Sputum - Endotrachea Suction/Ventilator Sputum Culture - Final S Aureus 01/16/19 13:30 Blood - Central Line Blood Culture - Final NO GROWTH AFTER 5 DAYS INCUBATION 01/16/19 13:39 Blood - Peripheral Venous Blood Culture - Final NO GROWTH AFTER 5 DAYS INCUBATION 01/15/19 10:30 Urine - Urine Aguilera Urine Culture - Final NO GROWTH OBTAINED 01/09/19 23:02 Urine - Urine Clean Catch Urine Culture - Final Proteus Mirabilis 01/10/19 17:17 Urine For Antigen Detection Legionella Antigen - Final 01/10/19 17:17 Urine For Antigen Detection Streptococcus pneumoniae Antigen (M - Final Current Medications Acetaminophen (Tylenol -) 650 mg PO Q6H PRN PRN Reason: PAIN LEVEL 1-5 Albuterol/Ipratropium (Duoneb -) 1 amp NEB RQID [facility] Last Admin: 01/26/19 07:25 Dose: 1 amp Amino Acids (Prosource No Carb Liquid Pkt) 30 ml PO BID@0800,1730 [facility] Last Admin: 01/26/19 08:12 Dose: 30 ml Atorvastatin Calcium (Lipitor -) 10 mg PO [facility] Last Admin: 01/25/19 21:58 Dose: 10 mg Chlorhexidine Gluconate (Hibiclens For Decolonization -) 1 applic TP [facility] Last Admin: 01/25/19 21:57 Dose: 1 applic Dorzolamide HCl (Trusopt 2%) 1 drop OU BID [facility] Last Admin: 01/25/19 22:00 Dose: 1 drop Fludrocortisone Acetate (Florinef -) 0.05 mg PO DAILY [facility] Last Admin: 01/25/19 09:21 Dose: 0.05 mg Hydrocortisone Sodium Succinate (Solu-Cortef -) 50 mg IVPB Q6H [facility] Last Admin: 01/26/19 01:16 Dose: 50 mg Norepinephrine Bitartrate 8, (000 mcg/ Sodium Chloride) 500 mls @ 17.83 mls/hr IV ASDIR [facility]; Protocol Last Titration: 01/26/19 07:20 Dose: 0.04 mcg/kg/min, 23.78 mls/hr Famotidine/Sodium Chloride (Pepcid 20 Mg Premixed Ivpb -) 20 mg in 50 mls @ 100 mls/hr IVPB DAILY@0800 [facility] Last Admin: 01/26/19 08:12 Dose: 100 mls/hr Fentanyl 500 mcg/ Dextrose 100 mls @ 5 mls/hr IVPB TITR [facility]; Protocol Last Admin: 01/26/19 04:50 Dose: 100 mcg/hr, 20 mls/hr Sodium Chloride (Normal Saline -) 250 mls @ 3,000 mls/hr IV PRN PRN PRN Reason: Hypotension during Dialysis Stop: 01/26/19 13:30 Potassium Chloride (Potassium Chloride 10 Meq Premix Ivpb -) 10 meq in 100 mls @ 100 mls/hr IVPB Q60M [facility] Stop: 01/26/19 10:14 Last Admin: 01/26/19 09:13 Dose: 100 mls/hr Sodium Phosphate 15 mm/ Sodium (Chloride) 255 mls @ 62.5 mls/hr IVPB ONCE ONE Stop: 01/26/19 11:14 Insulin Aspart (Novolog Vial Sliding Scale -) 1 vial SQ Q4HPO [facility]; Protocol Last Admin: 01/26/19 05:04 Dose: Not Given Insulin Detemir (Levemir Vial) 12 units SQ HS [facility] Insulin Detemir (Levemir Vial) 12 units SQ AM [facility] Last Admin: 01/26/19 06:42 Dose: 12 units Multi-Ingredient Lotion (Eucerin (Large Jar) -) 1 applic TP BID PRN PRN Reason: DRY SKIN Last Admin: 01/24/19 09:21 Dose: 1 applic Nystatin (Nystatin Oral Suspension -) 500,000 units PO Q6HPO [facility] Last Admin: 01/26/19 05:04 Dose: 500,000 units Rivaroxaban (Xarelto) 15 mg PO DAILY@1800 [facility] Last Admin: 01/25/19 17:28 Dose: 15 mg Silver Sulfadiazine (Silvadene -) 1 applic TP BID [facility] Last Admin: 01/25/19 21:59 Dose: 1 applic Triamcinolone Acetonide (Aristocort 0.025% Ointment -) 1 applic TP BID [facility] Last Admin: 01/25/19 22:04 Dose: 1 applic a/p respiratory failure persistent hypotension-pressors being tapered infiltrates on cxray- sputum MRSA- continue vancomycin by level MARVA- morbid obesity large thyroid goiter check vancomycin level and redose as needed in the am- redose level less then 15 thrombocytopenia-?heparin, hit ab pending, ?zosyn, now d/abby awaiting bed at [facility] overall prognosis is guarded
[2019-01-26] MEDS: DORZOLAMIDE 2% HCL OPHTHALMIC SOLUTION 10 ML BOTTLE OU SCH (09:42)
--- NOTE | 2019-01-26 11:46 | PN ---
Teaching Attending Note Name of Resident: Andrés Tai ATTENDING PHYSICIAN STATEMENT I saw and evaluated the patient. I reviewed the resident's note and discussed the case with the resident. I agree with the resident's findings and plan as documented. SUBJECTIVE: Patient seen and examined in the ICU. Remains intubated, AC Mode of vent, 40% FiO2. Remain on Levophed drip for hemodynamic support. Intake & Output 01/23/19 01/24/19 01/25/19 01/26/19 23:59 23:59 23:59 23:59 Intake Total 3385 2591.5 2828.7 852 Output Total 3920 195 3630 30 Balance -535 2396.5 -801.3 822 Weight 359 lb 6.4 oz 351 lb 1.6 oz 354 lb 4.8 oz 347 lb 1.6 oz Last Vital Signs Temp Pulse Resp BP Pulse Ox 97.2 F L 106 H 24 H 92/70 100 01/26/19 10:00 01/26/19 11:00 01/26/19 11:00 01/26/19 11:00 01/26/19 08:44 Active Medications Acetaminophen (Tylenol -) 650 mg PO Q6H PRN PRN Reason: PAIN LEVEL 1-5 Albuterol/Ipratropium (Duoneb -) 1 amp NEB RQID [facility] Last Admin: 01/26/19 11:29 Dose: 1 amp Amino Acids (Prosource No Carb Liquid Pkt) 30 ml PO BID@0800,1730 [facility] Last Admin: 01/26/19 08:12 Dose: 30 ml Atorvastatin Calcium (Lipitor -) 10 mg PO HS [facility] Last Admin: 01/25/19 21:58 Dose: 10 mg Chlorhexidine Gluconate (Hibiclens For Decolonization -) 1 applic TP HS [facility] Last Admin: 01/25/19 21:57 Dose: 1 applic Dorzolamide HCl (Trusopt 2%) 1 drop OU BID [facility] Last Admin: 01/26/19 09:42 Dose: 1 drop Fludrocortisone Acetate (Florinef -) 0.05 mg PO DAILY [facility] Last Admin: 01/26/19 09:28 Dose: 0.05 mg Hydrocortisone Sodium Succinate (Solu-Cortef -) 50 mg IVPB Q6H [facility] Last Admin: 01/26/19 09:27 Dose: 50 mg Norepinephrine Bitartrate 8, (000 mcg/ Sodium Chloride) 500 mls @ 17.83 mls/hr IV ASDIR [facility]; Protocol Last Admin: 01/26/19 10:27 Dose: Not Given Famotidine/Sodium Chloride (Pepcid 20 Mg Premixed Ivpb -) 20 mg in 50 mls @ 100 mls/hr IVPB DAILY@0800 [facility] Last Admin: 01/26/19 08:12 Dose: 100 mls/hr Fentanyl 500 mcg/ Dextrose 100 mls @ 5 mls/hr IVPB TITR [facility]; Protocol Last Admin: 01/26/19 04:50 Dose: 100 mcg/hr, 20 mls/hr Sodium Chloride (Normal Saline -) 250 mls @ 3,000 mls/hr IV PRN PRN PRN Reason: Hypotension during Dialysis Stop: 01/26/19 13:30 Insulin Aspart (Novolog Vial Sliding Scale -) 1 vial SQ Q4HPO [facility]; Protocol Last Admin: 01/26/19 09:41 Dose: Not Given Insulin Detemir (Levemir Vial) 12 units SQ HS [facility] Insulin Detemir (Levemir Vial) 12 units SQ AM [facility] Last Admin: 01/26/19 06:42 Dose: 12 units Multi-Ingredient Lotion (Eucerin (Large Jar) -) 1 applic TP BID PRN PRN Reason: DRY SKIN Last Admin: 01/24/19 09:21 Dose: 1 applic Nystatin (Nystatin Oral Suspension -) 500,000 units PO Q6HPO [facility] Last Admin: 01/26/19 05:04 Dose: 500,000 units Rivaroxaban (Xarelto) 15 mg PO DAILY@1800 [facility] Last Admin: 01/25/19 17:28 Dose: 15 mg Silver Sulfadiazine (Silvadene -) 1 applic TP BID [facility] Last Admin: 01/26/19 09:29 Dose: 1 applic Triamcinolone Acetonide (Aristocort 0.025% Ointment -) 1 applic TP BID [facility] Last Admin: 01/26/19 09:31 Dose: 1 applic Gen: intubated, sedated Heart: RRR Lung: decreased breath sounds at the bases Abd: soft, obese Ext: + edema Laboratory Results - last 24 hr 01/25/19 01/25/19 01/25/19 05:45 12:00 14:27 WBC Corrected WBC (auto) RBC Hgb Hct MCV MCH MCHC RDW Plt Count MPV Absolute Neuts (auto) Neutrophils % Neutrophils % (Manual) 88.7 H Band Neutrophils % 3.1 Lymphocytes % Lymphocytes % (Manual) 4.1 L D Monocytes % Monocytes % (Manual) 1 L Eosinophils % Eosinophils % (Manual) 0.0 Basophils % Basophils % (Manual) 0.0 Myelocytes % (Man) 2 D Promyelocytes % (Man) 0 Blast Cells % (Manual) 0 Nucleated RBC % Metamyelocytes 1 D Hypochromia 0 Platelet Estimate Decreased Polychromasia 1+ Poikilocytosis 1+ Basophilic Stippling 1+ Anisocytosis 1+ Microcytosis 0 Macrocytosis 1+ Target Cells 1+ Tear Drop Cells 1+ Ovalocytes 1+ Acanthocytes (Spur) 1+ Sodium Potassium Chloride Carbon Dioxide Anion Gap BUN Creatinine Est GFR (CKD-EPI)AfAm Est GFR (CKD-EPI)NonAf POC Glucometer 103 94 Random Glucose Calcium Phosphorus Magnesium 01/25/19 01/25/19 01/25/19 17:35 19:02 20:48 WBC Corrected WBC (auto) RBC Hgb Hct MCV MCH MCHC RDW Plt Count MPV Absolute Neuts (auto) Neutrophils % Neutrophils % (Manual) Band Neutrophils % Lymphocytes % Lymphocytes % (Manual) Monocytes % Monocytes % (Manual) Eosinophils % Eosinophils % (Manual) Basophils % Basophils % (Manual) Myelocytes % (Man) Promyelocytes % (Man) Blast Cells % (Manual) Nucleated RBC % Metamyelocytes Hypochromia Platelet Estimate Polychromasia Poikilocytosis Basophilic Stippling Anisocytosis Microcytosis Macrocytosis Target Cells Tear Drop Cells Ovalocytes Acanthocytes (Spur) Sodium Potassium Chloride Carbon Dioxide Anion Gap BUN Creatinine Est GFR (CKD-EPI)AfAm Est GFR (CKD-EPI)NonAf POC Glucometer 61 53 134 Random Glucose Calcium Phosphorus Magnesium 01/25/19 01/26/19 01/26/19 21:57 00:15 01:02 WBC Corrected WBC (auto) RBC Hgb Hct MCV MCH MCHC RDW Plt Count MPV Absolute Neuts (auto) Neutrophils % Neutrophils % (Manual) Band Neutrophils % Lymphocytes % Lymphocytes % (Manual) Monocytes % Monocytes % (Manual) Eosinophils % Eosinophils % (Manual) Basophils % Basophils % (Manual) Myelocytes % (Man) Promyelocytes % (Man) Blast Cells % (Manual) Nucleated RBC % Metamyelocytes Hypochromia Platelet Estimate Polychromasia Poikilocytosis Basophilic Stippling Anisocytosis Microcytosis Macrocytosis Target Cells Tear Drop Cells Ovalocytes Acanthocytes (Spur) Sodium 139 Potassium 2.6 L* Chloride 105 Carbon Dioxide 22 Anion Gap 12 BUN 50.8 H Creatinine 3.4 H Est GFR (CKD-EPI)AfAm 23.39 Est GFR (CKD-EPI)NonAf 20.18 POC Glucometer 152 150 Random Glucose 161 H Calcium 8.6 Phosphorus Magnesium 01/26/19 01/26/19 01/26/19 05:00 05:00 05:04 WBC 6.1 Corrected WBC (auto) 4.45 RBC 2.39 L Hgb 7.6 L Hct 22.5 L MCV 94.4 MCH 32.0 MCHC 33.9 RDW 15.0 Plt Count 50 L MPV 9.6 D Absolute Neuts (auto) 5.6 Neutrophils % 93.3 H Neutrophils % (Manual) Band Neutrophils % Lymphocytes % 4.7 L Lymphocytes % (Manual) Monocytes % 1.8 L Monocytes % (Manual) Eosinophils % 0.1 Eosinophils % (Manual) Basophils % 0.1 Basophils % (Manual) Myelocytes % (Man) Promyelocytes % (Man) Blast Cells % (Manual) Nucleated RBC % 37 H* D Metamyelocytes Hypochromia Platelet Estimate Polychromasia Poikilocytosis Basophilic Stippling Anisocytosis Microcytosis Macrocytosis Target Cells Tear Drop Cells Ovalocytes Acanthocytes (Spur) Sodium 139 Potassium 3.0 L Chloride 106 Carbon Dioxide 20 L Anion Gap 12 BUN 53.8 H Creatinine 3.5 H Est GFR (CKD-EPI)AfAm 22.58 Est GFR (CKD-EPI)NonAf 19.48 POC Glucometer 100 Random Glucose 134 H Calcium 8.6 Phosphorus 2.2 L Magnesium 1.8 01/26/19 09:32 WBC Corrected WBC (auto) RBC Hgb Hct MCV MCH MCHC RDW Plt Count MPV Absolute Neuts (auto) Neutrophils % Neutrophils % (Manual) Band Neutrophils % Lymphocytes % Lymphocytes % (Manual) Monocytes % Monocytes % (Manual) Eosinophils % Eosinophils % (Manual) Basophils % Basophils % (Manual) Myelocytes % (Man) Promyelocytes % (Man) Blast Cells % (Manual) Nucleated RBC % Metamyelocytes Hypochromia Platelet Estimate Polychromasia Poikilocytosis Basophilic Stippling Anisocytosis Microcytosis Macrocytosis Target Cells Tear Drop Cells Ovalocytes Acanthocytes (Spur) Sodium Potassium Chloride Carbon Dioxide Anion Gap BUN Creatinine Est GFR (CKD-EPI)AfAm Est GFR (CKD-EPI)NonAf POC Glucometer 113 Random Glucose Calcium Phosphorus Magnesium Problem List - Problems (1) Acute on chronic diastolic CHF (congestive heart failure) Code(s): I50.33 - ACUTE ON CHRONIC DIASTOLIC (CONGESTIVE) HEART FAILURE (2) Morbid (severe) obesity due to excess calories Code(s): E66.01 - MORBID (SEVERE) OBESITY DUE TO EXCESS CALORIES ASSESSMENT AND PLAN: Acute Hypoxic and Hypercapneic Respiratory Failure Pneumonia UTI Shock - ?Septic Acute on Chronic Diastolic Heart Failure Volume Overload Acute Kidney Injury Hyponatremia Morbid Obesity Obstructive Sleep Apnea Obesity Hypoventilation Syndrome COPD Anemia h/o DVT HTN - continue antibiotics - monitor urine output, creatinine - HD per renal - titrate pressors to maintain MAP >65 - continue stress dose steroids - O2, PEEP to keep SpO2 >90% - inhaled bronchodilators - continue anticoagulation - daily sedation vacations to assess mental status - spontaneous breathing trials as tolerated when mental status improved - enteral feeds - DVT/GI prophylaxis - continue ICU monitoring - For transfer to [place] once a bed is available. Dr Arellano Critical care time spent in reviewing chart, evaluating patient and formulating plan - 36 minutes.
--- NOTE | 2019-01-26 11:48 | PN ---
Progress Note, Physician Chief Complaint: seen and examined in ICU s/p HD yesterday awaiting transfer to [place] - Current Medication List Current Medications: Active Medications Acetaminophen (Tylenol -) 650 mg PO Q6H PRN PRN Reason: PAIN LEVEL 1-5 Albuterol/Ipratropium (Duoneb -) 1 amp NEB RQID [facility] Last Admin: 01/26/19 11:29 Dose: 1 amp Amino Acids (Prosource No Carb Liquid Pkt) 30 ml PO BID@0800,1730 [facility] Last Admin: 01/26/19 08:12 Dose: 30 ml Atorvastatin Calcium (Lipitor -) 10 mg PO HS [facility] Last Admin: 01/25/19 21:58 Dose: 10 mg Chlorhexidine Gluconate (Hibiclens For Decolonization -) 1 applic TP [facility] Last Admin: 01/25/19 21:57 Dose: 1 applic Dorzolamide HCl (Trusopt 2%) 1 drop OU BID [facility] Last Admin: 01/26/19 09:42 Dose: 1 drop Fludrocortisone Acetate (Florinef -) 0.05 mg PO DAILY [facility] Last Admin: 01/26/19 09:28 Dose: 0.05 mg Hydrocortisone Sodium Succinate (Solu-Cortef -) 50 mg IVPB Q6H [facility] Last Admin: 01/26/19 09:27 Dose: 50 mg Norepinephrine Bitartrate 8, (000 mcg/ Sodium Chloride) 500 mls @ 17.83 mls/hr IV ASDIR [facility]; Protocol Last Admin: 01/26/19 10:27 Dose: Not Given Famotidine/Sodium Chloride (Pepcid 20 Mg Premixed Ivpb -) 20 mg in 50 mls @ 100 mls/hr IVPB DAILY@0800 [facility] Last Admin: 01/26/19 08:12 Dose: 100 mls/hr Fentanyl 500 mcg/ Dextrose 100 mls @ 5 mls/hr IVPB TITR [facility]; Protocol Last Admin: 01/26/19 04:50 Dose: 100 mcg/hr, 20 mls/hr Sodium Chloride (Normal Saline -) 250 mls @ 3,000 mls/hr IV PRN PRN PRN Reason: Hypotension during Dialysis Stop: 01/26/19 13:30 Insulin Aspart (Novolog Vial Sliding Scale -) 1 vial SQ Q4HPO [facility]; Protocol Last Admin: 01/26/19 09:41 Dose: Not Given Insulin Detemir (Levemir Vial) 12 units SQ HS [facility] Insulin Detemir (Levemir Vial) 12 units SQ AM [facility] Last Admin: 01/26/19 06:42 Dose: 12 units Multi-Ingredient Lotion (Eucerin (Large Jar) -) 1 applic TP BID PRN PRN Reason: DRY SKIN Last Admin: 01/24/19 09:21 Dose: 1 applic Nystatin (Nystatin Oral Suspension -) 500,000 units PO Q6HPO [facility] Last Admin: 01/26/19 05:04 Dose: 500,000 units Rivaroxaban (Xarelto) 15 mg PO DAILY@1800 [facility] Last Admin: 01/25/19 17:28 Dose: 15 mg Silver Sulfadiazine (Silvadene -) 1 applic TP BID [facility] Last Admin: 01/26/19 09:29 Dose: 1 applic Triamcinolone Acetonide (Aristocort 0.025% Ointment -) 1 applic TP BID [facility] Last Admin: 01/26/19 09:31 Dose: 1 applic - Objective Vital Signs: Vital Signs Temperature 97.2 F L 01/26/19 10:00 Pulse Rate 106 H 01/26/19 11:00 Respiratory Rate 24 H 01/26/19 11:00 Blood Pressure 92/70 01/26/19 11:00 O2 Sat by Pulse Oximetry (%) 100 01/26/19 08:44 intubated AC mode fio2 50% on levophed o.o5mcg/hr Constitutional: Yes: Other (intubated) Neck: Yes: Thyromegaly Cardiovascular: Yes: Regular Rate and Rhythm, S1, S2 Respiratory: Yes: Mechanically Ventilated Gastrointestinal: Yes: Normal Bowel Sounds, Soft Edema: Yes Integumentary: Yes: Skin Tear Labs: CBC, BMP 01/26/19 05:00 01/26/19 05:00 INR, PTT INR 1.65 (0.83-1.09) H 01/22/19 05:15 Fibrinogen 359.0 mg/dL (238-498) 01/25/19 10:00 Problem List - Problems (1) Thyromegaly Assessment/Plan: pending transfer to [place] Code(s): E01.0 - IODINE-DEFICIENCY RELATED DIFFUSE (ENDEMIC) GOITER (2) Shock Assessment/Plan: on levophed keep MAP> 65 Code(s): R57.9 - SHOCK, UNSPECIFIED (3) Acute renal insufficiency Assessment/Plan: HD/UF yesterday Code(s): N28.9 - DISORDER OF KIDNEY AND URETER, UNSPECIFIED (4) Hypotension Assessment/Plan: on levophed drip/ monitor urine output floinef stress dose steroids iv abx for MRSA sputum Code(s): I95.9 - HYPOTENSION, UNSPECIFIED (5) Hyponatremia Assessment/Plan: HD/UF per renal sodium level improved Code(s): E87.1 - HYPO-OSMOLALITY AND HYPONATREMIA (6) Hyperglycemia Assessment/Plan: hgAC1 noted 8.8 started on levemir bid endocrine note appreciated Code(s): R73.9 - HYPERGLYCEMIA, UNSPECIFIED (7) Acute exacerbation of chronic obstructive pulmonary disease (COPD) Assessment/Plan: intubated on AC mode fio2 50% Code(s): J44.1 - CHRONIC OBSTRUCTIVE PULMONARY DISEASE W (ACUTE) EXACERBATION (8) DVT of upper extremity (deep vein thrombosis) Assessment/Plan: on xarelto 15mg Code(s): I82.629 - ACUTE EMBOLISM AND THROMBOSIS OF DEEP VN UNSP UP EXTREM (9) Hyperthyroidism Assessment/Plan: tapazole stopped euthyroid endocrine consult appreciated Code(s): E05.90 - THYROTOXICOSIS, UNSP WITHOUT THYROTOXIC CRISIS OR STORM (10) Pneumonia Assessment/Plan: cxr infilrate sputum MRSA vancomycin based on level Microbiology 01/21/19 12:00 Sputum - Endotrachea Suction/Ventilator Gram Stain - Final 01/21/19 12:00 Sputum - Endotrachea Suction/Ventilator Sputum Culture - Final S Aureus Code(s): J18.9 - PNEUMONIA, UNSPECIFIED ORGANISM (11) Hearing loss Assessment/Plan: ent consult appreciate hearing aides audiology testing on discharge Code(s): H91.90 - UNSPECIFIED HEARING LOSS, UNSPECIFIED EAR (12) HLD (hyperlipidemia) Assessment/Plan: statin Code(s): E78.5 - HYPERLIPIDEMIA, UNSPECIFIED (13) Electrolyte abnormality Code(s): E87.8 - OTH DISORDERS OF ELECTROLYTE AND FLUID BALANCE, NEC (14) Hypokalemia Code(s): E87.6 - HYPOKALEMIA (15) Acute on chronic diastolic CHF (congestive heart failure) Code(s): I50.33 - ACUTE ON CHRONIC DIASTOLIC (CONGESTIVE) HEART FAILURE
[2019-01-26 11:55] LABS: ANISOCYTOSIS 0; MACROCYTOSIS 0; OVALOCYTE 1+; PLATELET ESTIMATE DECREASED; TARGET CELLS 1+; TEAR DROP CELLS 1+
[2019-01-26] MEDS ORDERED: NOREPINEPHRINE BITARTRATE 8,000 MCG in DEXTROSE 5%-WATER - 492 ML IV SCH (13:00)
--- NOTE | 2019-01-26 13:16 | PN ---
Progress Note (short form) - Note Progress Note: Renal follow up for hyponatremia Seen and examined in the ICU on vent via ET tube FiO2 is 40% reamains oliguric on levophed s/p dialysis yesterday with 3.5L UF Vital Signs Temperature 97.2 F L 01/26/19 10:00 Pulse Rate 111 H 01/26/19 13:00 Respiratory Rate 24 H 01/26/19 13:00 Blood Pressure 82/69 L 01/26/19 13:00 O2 Sat by Pulse Oximetry (%) 100 01/26/19 11:45 Intake & Output 01/23/19 01/24/19 01/25/19 01/26/19 23:59 23:59 23:59 23:59 Intake Total 3385 2591.5 2828.7 852 Output Total 3920 195 3630 30 Balance -535 2396.5 -801.3 822 Weight 163.021 kg 159.256 kg 160.708 kg 157.442 kg on vent via ET tube RRR Dec BS Obese, NT/ND ++ edema in upper and lower extremity CBC, BMP 01/26/19 05:00 01/26/19 05:00 Current Medications Acetaminophen (Tylenol -) 650 mg PO Q6H PRN PRN Reason: PAIN LEVEL 1-5 Albuterol/Ipratropium (Duoneb -) 1 amp NEB RQID [facility] Last Admin: 01/26/19 11:29 Dose: 1 amp Amino Acids (Prosource No Carb Liquid Pkt) 30 ml PO BID@0800,1730 [facility] Last Admin: 01/26/19 08:12 Dose: 30 ml Atorvastatin Calcium (Lipitor -) 10 mg PO HS [facility] Last Admin: 01/25/19 21:58 Dose: 10 mg Chlorhexidine Gluconate (Hibiclens For Decolonization -) 1 applic TP HS [facility] Last Admin: 01/25/19 21:57 Dose: 1 applic Dorzolamide HCl (Trusopt 2%) 1 drop OU BID [facility] Last Admin: 01/26/19 09:42 Dose: 1 drop Fludrocortisone Acetate (Florinef -) 0.05 mg PO DAILY [facility] Last Admin: 01/26/19 09:28 Dose: 0.05 mg Hydrocortisone Sodium Succinate (Solu-Cortef -) 50 mg IVPB Q6H [facility] Last Admin: 01/26/19 09:27 Dose: 50 mg Norepinephrine Bitartrate 8, (000 mcg/ Sodium Chloride) 500 mls @ 17.83 mls/hr IV ASDIR [facility]; Protocol Last Admin: 01/26/19 10:27 Dose: Not Given Famotidine/Sodium Chloride (Pepcid 20 Mg Premixed Ivpb -) 20 mg in 50 mls @ 100 mls/hr IVPB DAILY@0800 [facility] Last Admin: 01/26/19 08:12 Dose: 100 mls/hr Fentanyl 500 mcg/ Dextrose 100 mls @ 5 mls/hr IVPB TITR [facility]; Protocol Last Admin: 01/26/19 11:47 Dose: 100 mcg/hr, 20 mls/hr Sodium Chloride (Normal Saline -) 250 mls @ 3,000 mls/hr IV PRN PRN PRN Reason: Hypotension during Dialysis Stop: 01/26/19 13:30 Norepinephrine Bitartrate 8, (000 mcg/ Dextrose) 500 mls @ 56.25 mls/hr IV TITR [facility]; Protocol Insulin Aspart (Novolog Vial Sliding Scale -) 1 vial SQ Q4HPO [facility]; Protocol Last Admin: 01/26/19 09:41 Dose: Not Given Insulin Detemir (Levemir Vial) 12 units SQ HS [facility] Insulin Detemir (Levemir Vial) 12 units SQ AM [facility] Last Admin: 01/26/19 06:42 Dose: 12 units Multi-Ingredient Lotion (Eucerin (Large Jar) -) 1 applic TP BID PRN PRN Reason: DRY SKIN Last Admin: 01/24/19 09:21 Dose: 1 applic Nystatin (Nystatin Oral Suspension -) 500,000 units PO Q6HPO [facility] Last Admin: 01/26/19 11:48 Dose: 500,000 units Rivaroxaban (Xarelto) 15 mg PO DAILY@1800 [facility] Last Admin: 01/25/19 17:28 Dose: 15 mg Silver Sulfadiazine (Silvadene -) 1 applic TP BID [facility] Last Admin: 01/26/19 09:29 Dose: 1 applic Triamcinolone Acetonide (Aristocort 0.025% Ointment -) 1 applic TP BID [facility] Last Admin: 01/26/19 09:31 Dose: 1 applic 48 year old gentleman with history of morbid obesity, COPD, BONY , diastolic heart failure, anemia, hypertension, hypothyrodism, DVT presented with back pain from the [place] and found to have hyponatremia with serum Na of 123. 1. Hypervolemic hyponatremia 2. Diastolic CHF with pleural effusions 3. Acute on chronic lower back pain 4. Morbid obesity 5. COPD/BONY 6. Hypotension/shock r/o sepsis 7. Acute renal failure secondary to sepsis 8. Hypokalemia Remains oliguric at this time. No signs of renal recovery as of yet. s/p HD/UF yesterday with 3.5L removed pt would benefit from CVVHD in tertiary care center for fluid management Continue IV Lasix to promote urine output Continue vent support overall prognosis is poor. awaiting transfer to tertiary care center Thank you Dennis Aldana DO
[2019-01-26] MEDS ORDERED: VASOPRESSIN 20 UNITS/ML VIAL IV ONE (17:06)
[2019-01-26] MEDS ORDERED: VASOPRESSIN 50 UNITS in SODIUM CHLORIDE 97.5 ML IVPB SCH (17:15)
[2019-01-26] MEDS: RIVAROXABAN 15 MG TABLET PO SCH (17:40)
[2019-01-26 18:41] VITALS: TEMP 97.9
[2019-01-26 18:49] VITALS: BP 79/39; PULSE 128
[2019-01-26] MEDS ORDERED: CALCIUM GLUCONATE 10% - 1,000 MG/10 ML VIAL ONE (20:08)
[2019-01-26] MEDS ORDERED: EPINEPHrine 1:10,000 (P-F SYR) 1 MG/10 ML DISP.SYRIN ONE (20:11)
--- NOTE | 2019-01-26 20:44 | PN ---
Progress Note (short form) - Note Progress Note: Code 99 called at 7:55 pm this evening, as pt became increasingly bradycardic. Please see ACLS sheet for details. Pt pronounced at 8:21pm. No breath sounds or heart sounds appreciated. Without pulse. No spontaneous breaths. Family declines autopsy, organ tissue procurement will be contacted. ICU attending, Dr. Arellano, pt's mother, and Dr. Randall, primary attending notified. Emotional support given to family.
--- NOTE | 2019-01-26 21:09 | PN ---
Progress Note (short form) - Note Progress Note: Code 99 paged overhead 7:56 PM. Code team arrived immediately. On arrival patient was bradycardic. ACLS protocol initiated. Please see code sheet for further details. 8:21PM patient was pronounced. Patient was without a pulse or heart sounds. There was no spontaneous breathing or lung sounds. Patient's family was contacted. ICU attending Dr. Arellano and PCP Dr. Randall were notified.
--- NOTE | 2019-01-27 16:37 | DS ---
Physical Examination Vital Signs: Vital Signs Temperature 97.9 F 01/26/19 18:00 Pulse Rate 128 H 01/26/19 18:05 Respiratory Rate 26 H 01/26/19 18:00 Blood Pressure 79/39 L 01/26/19 18:05 O2 Sat by Pulse Oximetry (%) 98 01/26/19 16:45 Labs: CBC, BMP 01/26/19 05:00 01/26/19 05:00 Discharge Summary Problems reviewed: Yes Reason For Visit: MORBID OBESITY, HYPONATREMIA, PAIN OF RIGHT LOWER Hospital Course: - Primary Care Physician PCP: Dr. Randall - Admission Chief Complaint: SOB, chest pain and back pain History of Present Illness: 48 year old male with PMH of morbid obesity, BONY, COPD, diastolic HF, anemia, h/ o UGI bleeding, HTN, hyperthyroidism, DVTs (UEs, on Xarelto) arrived from [facility] due to acute on chronic CP, back pain, and RLE pain/ change in temperature. Pain expressed as generalized for over course of months. Pain to chest/back makes it difficulty to breath, helps when sitting up right, also states RLE has been cold and poor movement oain/tender to touch. Patient endorses lightheadedness, palpitations, and leg swelling and change in temperature, also with nausea at times. Patient denies PEDRAZA, vision changes, cough , abdominal pain, vomiting, dysuria, hematuria. Patient is poor historian and states he gets confused sometimes. during hosital course patient was in ICU his breathing got worse and intubated , renal falure iv lasix then HD was going to get transferred to [place] then last night bradycardia and then asytole Condition: Stable - Instructions Referrals: Glenny Randall MD [Primary Care Provider] - Disposition: - Home Medications Comprehensive Discharge Medication List: Ambulatory Orders Ergocalciferol [Vitamin D2] 50,000 unit PO WEEKLY 05/10/15 Furosemide [Lasix -] 40 mg PO BID 05/10/15 Methimazole 10 mg PO DAILY 05/10/15 Rivaroxaban [Xarelto -] 20 mg PO DAILY 05/10/15 Vitamin B Complex 1 each PO DAILY 05/10/15 Timolol 0.5% [Timoptic 0.5%] 1 drop OU DAILY drops 05/15/15 Atorvastatin Ca [Lipitor] 10 mg PO DAILY 09/06/15 Albuterol 2.5/Ipratropium 0.5 [Duoneb -] 1 amp NEB QIDR amp 05/10/16 Dorzolamide HCl [Trusopt 2% -] 1 drop OU BID drops 10/20/17 Dexamethasone [Decadron -] 4 mg PO BID tablet 07/26/18 Lisinopril [Prinivil] 5 mg PO DAILY tablet 07/26/18 Nystatin Oral Suspension - [Nystatin Oral Susp 789326 Units/5 ML -] 500,000 units PO Q6HPO cup 07/26/18 Acetaminophen 650 mg PO QID PRN 01/09/19 Omeprazole 20 mg PO DAILY 01/09/19 Tramadol HCl [Ultram] 50 mg PO BID PRN 01/09/19
== END 2019-01-26 22:17 | disposition expired | DRG 207 ==
LOC: JER 17:04 → JERBED 23:25 → J4S 01-11 00:04 → JICU 01-14 13:13
PROVIDERS: ADMIT Family Medicine; ATTEND Family Medicine
PROC: 06HM33Z Insertion of Infusion Device into Right Femoral Vein, Percutaneous Approach (ICD-10-PCS; principal; 2019-01-14)
PROC: B51BZZA Fluoroscopy of Right Lower Extremity Veins, Guidance (ICD-10-PCS; 2019-01-16)
PROC: 05HM33Z Insertion of Infusion Device into Right Internal Jugular Vein, Percutaneous Approach (ICD-10-PCS; 2019-01-16)
PROC: B513ZZA Fluoroscopy of Right Jugular Veins, Guidance (ICD-10-PCS; 2019-01-16)
PROC: 05HN33Z Insertion of Infusion Device into Left Internal Jugular Vein, Percutaneous Approach (ICD-10-PCS; 2019-01-19)
PROC: B514ZZA Fluoroscopy of Left Jugular Veins, Guidance (ICD-10-PCS; 2019-01-19)
PROC: 5A1D70Z Performance of Urinary Filtration, Intermittent, Less than 6 Hours Per Day (ICD-10-PCS; 2019-01-19)
PROC: 5A1D70Z Performance of Urinary Filtration, Intermittent, Less than 6 Hours Per Day (ICD-10-PCS; 2019-01-20)
PROC: 5A1955Z Respiratory Ventilation, Greater than 96 Consecutive Hours (ICD-10-PCS; 2019-01-21)
PROC: 0BH17EZ Insertion of Endotracheal Airway into Trachea, Via Natural or Artificial Opening (ICD-10-PCS; 2019-01-21)
PROC: 5A1D70Z Performance of Urinary Filtration, Intermittent, Less than 6 Hours Per Day (ICD-10-PCS; 2019-01-21)
PROC: 5A1D70Z Performance of Urinary Filtration, Intermittent, Less than 6 Hours Per Day (ICD-10-PCS; 2019-01-23)
PROC: 5A1D70Z Performance of Urinary Filtration, Intermittent, Less than 6 Hours Per Day (ICD-10-PCS; 2019-01-25)
DX: J18.9 Pneumonia, unspecified organism (principal); J96.01 Acute respiratory failure with hypoxia; I50.33 Acute on chronic diastolic (congestive) heart failure; A41.89 Other specified sepsis; R65.21 Severe sepsis with septic shock; G93.41 Metabolic encephalopathy; J96.02 Acute respiratory failure with hypercapnia; J98.11 Atelectasis; E87.3 Alkalosis; J44.1 Chronic obstructive pulmonary disease with (acute) exacerbation; E87.1 Hypo-osmolality and hyponatremia; B37.0 Candidal stomatitis; R57.9 Shock, unspecified; Z68.43 Body mass index [BMI] 50.0-59.9, adult; N39.0 Urinary tract infection, site not specified; N17.9 Acute kidney failure, unspecified; L03.116 Cellulitis of left lower limb; E01.0 Iodine-deficiency related diffuse (endemic) goiter; I11.0 Hypertensive heart disease with heart failure; G47.33 Obstructive sleep apnea (adult) (pediatric); I27.20 Pulmonary hypertension, unspecified; E87.70 Fluid overload, unspecified; L13.9 Bullous disorder, unspecified; E66.01 Morbid (severe) obesity due to excess calories; H40.9 Unspecified glaucoma; E11.65 Type 2 diabetes mellitus with hyperglycemia; F32.9 Major depressive disorder, single episode, unspecified; B96.4 Proteus (mirabilis) (morganii) as the cause of diseases classified elsewhere; R60.0 Localized edema; E05.00 Thyrotoxicosis with diffuse goiter without thyrotoxic crisis or storm; K21.9 Gastro-esophageal reflux disease without esophagitis; D72.829 Elevated white blood cell count, unspecified; M54.5 Low back pain; N28.9 Disorder of kidney and ureter, unspecified; E86.1 Hypovolemia; E87.6 Hypokalemia; I95.9 Hypotension, unspecified; R22.1 Localized swelling, mass and lump, neck; H91.92 Unspecified hearing loss, left ear; Z99.81 Dependence on supplemental oxygen; Z86.718 Personal history of other venous thrombosis and embolism
CPT/HCPCS: 31500; 36415; 36600; 71045-TC-FY; 76775-TC; 76856-TC; 80048; 80053; 80061; 80076; 81003; 82272; 82375; 82533; 82542; 82550; 82565; 82607; 82728; 82803; 82962; 83036; 83050; 83540; 83550; 83605; 83690; 83721; 83735; 83880; 83930; 83935; 84100; 84300; 84439; 84443; 84484; 84550; 85025; 85027; 85384; 85610; 85730; 86022; 86803; 87040; 87070; 87086; 87186; 87205; 87340; 87899; 93005; 93010; 93306-TC; 93925-TC; 93930; 93970-TC; 94002; 94640; 94660; 99284-25; G0480; J7030; P9047